=== PATIENT | female | born 1995 | race Caucasian/White ===

== ENCOUNTER 2017-11-12 21:58 | Emergency (ER) | payer MEDICAID, SELFPAY ==
[2017-11-12 21:59] VITALS: BP 142/91; PULSE 104; RESP 17; TEMP 36.1; O2SAT 95; BMI 38.9
--- NOTE | 2017-11-12 22:06 | NURSING ---
PATIENT HAD A FAMILY SITUATION AND HAD TO LEAVE SOON SHE WAS ROOMED. PATIENT STATES SHE PLANS ON RETURNING AFTER SHE DEALT WITH THIS. THIS NURSE TOLD PATIENT THAT SHE WOULD HAVE TO START IN TRIAGE AGAIN.
== END 2017-11-12 22:15 | disposition left against medical advice (07) ==
LOC: ED 22:14
PROVIDERS: Emergency Provider Emergency Medicine; Family Provider Student in an Organized Health Care Education/Training Program; PCP Student in an Organized Health Care Education/Training Program
DX: R69 Illness, unspecified (principal)

== ENCOUNTER 2018-02-19 19:46 | Emergency (ER) | payer MEDICAID, SELFPAY ==
[2018-02-19 19:47] VITALS: BP 127/67; PULSE 85; RESP 15; TEMP 37; BMI 36.9
--- NOTE | 2018-02-19 20:03 | ED.DCSUM_ITS ---
- ER Visit Summary Date of Service: 02/19/18 Chief Complaint: Right lateral chest wall redness History of Present Illness: The patient is a 22 F several day history of redness and discomfort right lateral chest wall. She thinks she may have been bit by something in her sleep. No prior history. States it is uncomfortable. Denies any drainage. Physical Examination: Well-appearing young female. Vital signs are stable afebrile. No distress. H EENT exam unremarkable. Neck nontender. Lungs clear to auscultation bilaterally. Heart regular rate and rhythm no murmur. Abdomen soft nontender. Normal bowel sounds no peritoneal signs. Moving all 4 extremities neurovascular intact. Small bruise on her right anterior lower leg. No deformity. Neurologic exam normal. Right lateral chest wall there is a 1/2 inch wide by 3 inch long area of redness which could be an early abscess. It is tender palpation. Also any obvious fluctuance but there is indurated tissue. Test Results: None Emergency Department Course and Treatment: Procedure note. Right lateral chest wall abscess. Let was applied. Then locally anesthetized with subcu lidocaine. Area was cleaned. I made a 1 cm more to express pus and blood. Loculations were broken up with probing. And I placed several inches of quarter inch packing gauze. Patient tolerated procedure well. She will be given 1 dose of Keflex in the ER. Treatment Plan: Keflex 4 times daily for 10 days. Tylenol Motrin for pain. Follow-up with her primary care physician this week. Packing pulled out in 4 days. Disposition: Discharge Impression: Right lateral chest wall subcu abscess Incision and drainage by ER This note was generated with [employer] dictation software. It may contain incorrect words, spelling, and punctuation that were not noted in review of the chart prior to signing ED Disposition - Plan for ED Patient: Chief Complaint: Other, Pain/Inj Referrals: Dario Poe DO [Primary Care Provider] -
[2018-02-19] MEDS: Lidocaine/Epi/Tetracaine 50 ML 1 APPLIC TOPICAL (20:13)
--- NOTE | 2018-02-19 21:12 | ED.DEP ---
ED Disposition - Plan for ED Patient: Disposition: Home or Assisted Living Chief Complaint: Other, Pain/Inj Instructions: ED Abscess IandD Prescriptions: Cephalexin [Keflex] 500 mg PO Q6 #40 cap Referrals: aDrio Poe DO [Primary Care Provider] - 5-7 Days Additional Instructions: Tylenol Motrin for pain. Keflex 1 pill 4 times a day till gone. Full packing out in 4 days. Follow-up with primary care physician. Return to ER if feeling worse.
[2018-02-19] MEDS: Cephalexin 250 MG Capsule 500 MG PO (21:15)
== END 2018-02-19 21:21 | disposition home or self-care (01) ==
PROVIDERS: Emergency Provider Emergency Medicine; Family Provider Student in an Organized Health Care Education/Training Program; PCP Student in an Organized Health Care Education/Training Program
DX: L02.213 Cutaneous abscess of chest wall (principal); B96.89 Other specified bacterial agents as the cause of diseases classified elsewhere; F32.9 Major depressive disorder, single episode, unspecified
CPT/HCPCS: 10061; 99283

== ENCOUNTER 2018-02-20 20:21 | Inpatient (IN) | payer MEDICAID, SELFPAY ==
[2018-02-20 20:22] VITALS: BP 120/81; PULSE 94; RESP 15; TEMP 37.2; BMI 36.4
--- NOTE | 2018-02-20 20:56 | CT_ITS ---
STUDY: CT CHEST WITH CONTRAST REASON FOR EXAM: Female, 22 years old. Right lateral chest wall abscess. Status post incision and drainage. RADIATION DOSAGE (If Supplied By Facility): CTDIvol = ( 17.69 ) mGy, DLP = ( 659.57 ) mGycm TECHNIQUE: Transaxial imaging was performed following intravenous administration of 100ml ml of Isovue 300 contrast material. Coronal and sagittal reformatted images were created. Individualized dose optimization techniques were used for this CT. COMPARISON: None FINDINGS: There are no pulmonary infiltrates or pleural effusions. There are no pulmonary nodules or masses. There is no pneumothorax. The heart and pericardium are within normal limits. There is no mediastinal or hilar lymphadenopathy. There is no evidence of thoracic aortic aneurysm. Images through the upper abdomen demonstrate no significant abnormality. There is a 2.2 x 1.6 cm right axillary lymph node. There is subcutaneous stranding in the right lateral chest wall but no discrete fluid collection. This likely represents cellulitis. There are no destructive osseous lesions. There are spinal fusion rods in place. CT/Chest WITH Contrast IMPRESSION: Subcutaneous stranding in the right lateral chest wall but no discrete fluid collection. This likely represents cellulitis. Right axillary lymphadenopathy. Clear lungs. Electronically Signed: Trenton Enriquez, at 22:57 EDT Tel , Service support ,
--- NOTE | 2018-02-20 21:00 | ED.VISSUMM ---
- ER Visit Summary Date of Service: 02/20/18 Chief Complaint: Fever and chills and worsening redness after incision and drainage of her right lateral chest wall subcu abscess yesterday History of Present Illness: The patient is a 22 F history of depression, prior back surgery and appendectomy. Patient was seen yesterday in the ER and incision and drainage of her right lateral chest wall abscess. At that time and minimal redness. Pus and blood was expressed from the wound. It was packed and she was started on Keflex. She states that now she has worse redness. That she has been taken antibiotic. And today had fever and chills. Also nausea vomiting. States more painful to site. Physical Examination: Well-appearing young female. Vital signs are stable afebrile. She does not look septic or toxic. Currently no acute distress. HEENT exam unremarkable neck nontender no lymphadenopathy. Lungs clear to auscultation bilaterally. Heart regular rate and rhythm no murmur rate about 90. Abdomen soft nontender nondistended normal bowel sounds no hernial signs. Right lateral chest wall midaxillary line there is chest wall abscess. There is tenderness to the site. There is cellulitis. This does look worse than it did yesterday. There is no necrotic skin. I do not feel any significant subcutaneous air. There is packing in place and a small amount of pus from the wound. The area involved is about 3 inches in wide and 5 inches in length. Her neurologic exam is normal. She is moving all 4 extremities. Back is unremarkable. No other rashes. Test Results: CBC shows a white count of 10. Normal H&H. Platelet count of 137,000. Electrolytes are normal potassium 3.2. Normal gap. Normal creatinine. Emergency Department Course and Treatment: Patient was treated with morphine for pain. Started on IV Zosyn. Screening labs will be obtained also a CAT scan of her chest with IV contrast to evaluate the abscess. Treatment Plan: Aaron exam patient is doing well at 2232. The cellulitis has not gotten significantly worse. She has been given IV Zosyn. 2 different dosages IV morphine. I will speak to the hospitalist about admission. Disposition: Admission Impression: Right lateral chest wall cellulitis Status post right lateral chest wall abscess incision and drainage This note was generated with [employer] dictation software. It may contain incorrect words, spelling, and punctuation that were not noted in review of the chart prior to signing ED Disposition - Plan for ED Patient: Chief Complaint: Nausea/Vomiting Referrals: Dario Poe DO [Primary Care Provider] -
--- NOTE | 2018-02-20 21:03 | ED.DCSUM_ITS ---
- ER Visit Summary Date of Service: 02/20/18 Chief Complaint: Fever and chills and worsening redness after incision and drainage of her right lateral chest wall subcu abscess yesterday History of Present Illness: The patient is a 22 F history of depression, prior back surgery and appendectomy. Patient was seen yesterday in the ER and incision and drainage of her right lateral chest wall abscess. At that time and minimal redness. Pus and blood was expressed from the wound. It was packed and she was started on Keflex. She states that now she has worse redness. That she has been taken antibiotic. And today had fever and chills. Also nausea vomiting. States more painful to site. Physical Examination: Well-appearing young female. Vital signs are stable afebrile. She does not look septic or toxic. Currently no acute distress. HEENT exam unremarkable neck nontender no lymphadenopathy. Lungs clear to auscultation bilaterally. Heart regular rate and rhythm no murmur rate about 90. Abdomen soft nontender nondistended normal bowel sounds no hernial signs. Right lateral chest wall midaxillary line there is chest wall abscess. There is tenderness to the site. There is cellulitis. This does look worse than it did yesterday. There is no necrotic skin. I do not feel any significant subcutaneous air. There is packing in place and a small amount of pus from the wound. The area involved is about 3 inches in wide and 5 inches in length. Her neurologic exam is normal. She is moving all 4 extremities. Back is unremarkable. No other rashes. Test Results: CBC shows a white count of 10. Normal H&H. Platelet count of 137 ,000. Electrolytes are normal potassium 3.2. Normal gap. Normal creatinine. Emergency Department Course and Treatment: Patient was treated with morphine for pain. Started on IV Zosyn. Screening labs will be obtained also a CAT scan of her chest with IV contrast to evaluate the abscess. Treatment Plan: Aaron exam patient is doing well at 2232. The cellulitis has not gotten significantly worse. She has been given IV Zosyn. 2 different dosages IV morphine. I will speak to the hospitalist about admission. Disposition: Admission Impression: Right lateral chest wall cellulitis Status post right lateral chest wall abscess incision and drainage This note was generated with [employer] dictation software. It may contain incorrect words, spelling, and punctuation that were not noted in review of the chart prior to signing ED Disposition - Plan for ED Patient: Chief Complaint: Nausea/Vomiting Referrals: Dario Poe DO [Primary Care Provider] -
[2018-02-20] MEDS: morphine 8 MG/ML Syringe IV (21:31)
[2018-02-20] MEDS: 0.9% Normal Saline 1,000 ML 999 ML IV (21:31)
[2018-02-20 21:37] LABS: Absolute Lymphocyte Count 1.95 X10^3/ul (0.83-4.51); Absolute Neutrophil Count 6.8 X10^3/uL (2.0-7.7); Eosinophil# 0.05 X10^3/uL; Eosinophils% 0.5 % (0-5); Hematocrit 38.4 % (37-47); Lymphocyte # 1.95 X10^3/ul (4.0); Lymphocyte % 19.6 % (19-41); Mean Corp Hgb Conc 31.3 g/gl (32-36); Mean Corpuscular Hgb 26.3 pg (27.0-32.0); Mean Corpuscular Volume 84.2 fL (81-99); Monocyte# 1.19 X10^3/uL; Monocyte% 11.9 % (0-10); Neutrophil # 6.76 X10^3/uL (2.7-7.7); Neutrophil % 67.8 % (47-70); POSITIVE COUNT NO; POSITIVE DIFFERENTIAL NO; POSITIVE MORPHOLOGY NO; Platelet Count 137 K/mm3 (150-450); RBC Distribution Width CV 13.9 % (11.6-14.6); RBC Distribution Width SD 42.2 fl (35.1-43.9); Red Blood Count 4.56 M/mm3 (4.2-5.4)
[2018-02-20] MEDS: morphine 8 MG/ML Syringe 6 MG IV (22:15)
[2018-02-20 22:16] VITALS: BP 126/74; PULSE 76; RESP 16; O2SAT 98
[2018-02-20 22:16] LABS: Anion Gap 8 (5-15); BUN 8 mg/dL (7-18); BUN/Creat Ratio 9.2 RATIO (10-20); Calcium,Total 8.8 mg/dL (8.5-10.1); Chloride 105 mmol/L (98-107); Creatinine, Serum 0.86 mg/dL (0.55-1.02); EST Glomerular Filtration Rate 85 mL/min (>60); Est Glom Filt Rate - Afr Amer 103 mL/min (>60); Estimated Creatinine Clearance 94.43 ml/min; Glucose 82 mg/dL (74-106); Potassium 3.2 mmol/L (3.5-5.1); Sodium Level 138 mmol/L (136-145)
[2018-02-20 23:12] VITALS: BP 129/76; PULSE 92; RESP 18; O2SAT 99
[2018-02-20 23:33] VITALS: BMI 36.9
[2018-02-20 23:57] VITALS: BMI 37.0
[2018-02-21] MEDS: 0.9% Normal Saline 1,000 ML 100 ML IV ×2 (00:12→08:51)
[2018-02-21] MEDS: buPROPion (XL) 300 MG TABLET.XL PO ×2 (00:14→21:34)
[2018-02-21 00:15] VITALS: BP 127/68; PULSE 71; RESP 16; TEMP 37.2; O2SAT 99
[2018-02-21 00:16] LABS: Bedside Glucose 88 mg/dL (70-110)
[2018-02-21] MEDS: oxyCODONE 5 MG Tablet PO ×6 (00:28→21:34)
--- NOTE | 2018-02-21 00:34 | PCM.RX.CS ---
Consult Pharmacy has been consulted to manage selected antiobiotic: Vancomycin Type of Consult: New start Suspected Infection: Skin/Soft tissue Prior Doses of Antibiotics Received/Current Regimen: Medications Vancomycin HCl 1,500 mg/ (Sodium Chloride) 530 mls @ 250 mls/hr IV RX TO DOSE ONE Stop: 02/21/18 02:37 Last Admin: 02/21/18 00:12 Dose: 250 mls/hr Vancomycin HCl 1,500 mg/ (Sodium Chloride) 530 mls @ 250 mls/hr IV Q12H [facility] Labs: Sodium 138 mmol/L (136-145) 02/20/18 21:55 Potassium 3.2 mmol/L (3.5-5.1) L 02/20/18 21:55 Chloride 105 mmol/L (98-107) 02/20/18 21:55 Carbon Dioxide 25.0 mmol/L (21.0-32.0) 02/20/18 21:55 Anion Gap 8 (5-15) 02/20/18 21:55 BUN 8 mg/dL (7-18) 02/20/18 21:55 Creatinine 0.86 mg/dL (0.55-1.02) 02/20/18 21:55 Est GFR (MDRD) Af Amer 103 mL/min (>60) 02/20/18 21:55 Est GFR (MDRD) Non-Af 85 mL/min (>60) 02/20/18 21:55 BUN/Creatinine Ratio 9.2 RATIO (10-20) L 02/20/18 21:55 Glucose 82 mg/dL (74-106) 02/20/18 21:55 Weight used for dosin.4 kg Estimated Creatinine Clearance: 94 Goal Trough: 10-15 mcg/mL Pharmacy Plan for Drug Dosing: Pharmacy Service will continue to monitor and adjust dosing as required. Follow-Up Labs: Trough Vancomycin Labs to be done on [date and time ordered]: 02/22/18 @8513
[2018-02-21 00:51] LABS: Erythrocyte Sedimentation Rate 46 mm/hr (0-20)
--- NOTE | 2018-02-21 01:19 | PCM.HP.STD ---
Problem List (1) Cellulitis Status: Acute (2) Abscess of right breast Status: Acute (3) Depression Status: Chronic History of Present Illness Date of Admission: 02/21/18 Chief Complaint: Cellulitis The patient is a 22 year old female w/ h/o depression, prior back surgery and appendectomy admitted for right breast cellulitis and abscess. She noted swelling and redness of the right breast 3 days ago. It has gotten progressively worse with increase pain. Pain is dull aching and when touch, it is burning. Pain is worse with touch. Nothing improves the pain. Pain is constant and severe. She went to the ED yesterday and had I&D of her right lateral chest abscess. However, despite drainage and being on antibiotic, she had increase pain and swelling. She also had fever and chill. She also had n/v. She went back to the ED for further evaluation. Past Medical History Past Medical History (Chronic Problems): Chronic Problems BMI 38.0-38.9,adult (Chronic) Depression (Chronic) Allergies No Known Allergies Allergy (Verified 02/20/18 20:27) Home Medications: Ambulatory Orders Medication Instructions Recorded bupropion HCl XL 300 mg 24 hr 300 mg PO DAILY #30 tab 08/19/17 tablet, extended release Cephalexin [Keflex] 500 mg PO Q6 #40 cap 02/19/18 Surgical History: appendectomy, - - Tubal ligation, back surgery for scoliosis Psychiatric History: No pertinent psych hx [employer]ICIAN History: No pertinent [employer] TECH[employer]ICIAN history Smoking Status: Never smoker Tobacco Use: Secondhand - *Family History Maternal History Items: No pertinent history Paternal History Items: No pertinent history Review of Systems Constitutional: Reports: Chills, Fever. Denies: Weight Change HEENT: Denies: Head Aches, Sinus Congestion, Sinus Drainage Cardiovascular: Denies: Chest Pain, Palpitations Respiratory: Denies: Cough, Shortness of breath at rest, Sputum production Gastrointestinal: Denies: Abdominal Pain, Nausea, Vomiting Genitourinary: Denies: Dysuria Musculoskeletal: Denies: Joint Pain, Joint Tenderness Skin: Denies: Rash, Wounds Neurological: Denies: Numbness, Tingling, Focal weakness Psychiatric: Denies: Anxiety, Depression, Homicidal Ideations, Suicidal Ideations Hematologic/ Lymphatic: Denies: Easy Bruising, Easy Bleeding VTE Information - Inpt Only VTE Present on Admission: No VTE Mechan Device Prophylaxis: SCD's VTE Pharm Prophylaxis ordered?: Yes Patient Problems: Active and Suspected Problems Cellulitis (Acute) Abscess of right breast (Acute) - Physical Exam General: Alert, Oriented x3, Cooperative HEENT: Atraumatic, PERRLA, EOMI, Normocephalic Neck: Supple, No JVD, Negative Carotid Bruits Lungs: Clear to auscultation, Normal air movement Cardiovascular: Regular rate, No murmurs Abdomen: Bowel Sounds Present, Soft, Non Tender Extremities: No edema, Capillary Refill Less than 3 Seconds Skin: No breakdown, Incision Musculoskeletal: No Tenderness to Palpation of Joints or Extremities Neurological: Cranial nerves II-XII grossly intact Psych/Mental Status: Normal Affect, Appropriate Vital Signs Temp Pulse Resp BP Pulse Ox 98.9 F 92 18 129/76 H 99 02/20/18 20:22 02/20/18 23:12 02/20/18 23:12 02/20/18 23:12 02/20/18 23:12 Weight: 103.9 kg Body Mass Index (BMI) 36.9 Laboratory Tests Past 24 Hrs 02/21/18 00:24 ESR 46 H POC Glucose 02/21/18 00:10 POC Glucose 88 Assessment/Plan All Active Problems Cellulitis (Acute) Abscess of right breast (Acute) Acute pyelonephritis (Acute) Fever (Acute) Right flank pain (Acute) 22 year old female w/ h/o depression, prior back surgery and appendectomy admitted for right breast cellulitis and abscess. 1) Right breast cellulitis and abscess: S/p I&D. Will get deep wound culture. Will start zosyn and vanco until culture / sensitive. Pain control. Supportive care. 2) Dysuria: Will get UA. Will monitor for fungal infection given antibiotics. Supportive care. 3) Depression: Resume home meds. Monitor. 4) Prophylaxis: SCD / Heparin.
[2018-02-21 01:23] LABS: Hemoglobin A1c 4.7 % (4.2-6.3)
[2018-02-21] MEDS: Ondansetron 4 MG/2 ML Vial IV (01:48)
[2018-02-21 01:52] LABS: Bacteria 0 SEEN /hpf (None Seen); Mucous, Urine 0 SEEN /hpf (<or=2+)
[2018-02-21 02:12] LABS: Color, Urine Yellow (Yellow); Glucose, Dipstick Normal (Normal); Ketone-Dipstick Negative (Negative); Leukocyte Esterase-Dipstick 100 /ul (Negative); Nitrite-Dipstick Negative (Negative); Occult Blood-Urine 250 /ul (Negative); Protein-Dipstick 15 mg/dl (Negative); Specific Gravity, Urine 1.005 (1.002-1.030); Urine Bilirubin Dipstick Negative (Negative); Urine Clarity Sl. Cloudy (Clear); Urine Urobilinogen Normal (Normal); Urine pH 6.5 (5.0 - 8.0)
[2018-02-21 02:20] LABS: Squamous Epithelial Cells - UA 25-50 SEEN /hpf (5-10); White Blood Cells 5-10 SEEN /hpf (0-5)
[2018-02-21 02:21] LABS: Red Blood Cells-Urine 0-5 SEEN /hpf (0-5)
[2018-02-21] MEDS: Morphine 2 MG/ML Syringe IV ×2 (03:21→08:50)
[2018-02-21] MEDS: 0.9% NaCl Peripheral Flush Adult/Peds IV (03:21)
[2018-02-21 03:24] VITALS: BP 128/68; PULSE 86; RESP 16; TEMP 37.1; O2SAT 100
[2018-02-21 04:06] LABS: M R Staph aureus DNA By PCR POSITIVE (Negative); Probe Check PASS; Staph aureus DNA By PCR POSITIVE (Negative)
[2018-02-21] MEDS: Piperacil/Tazobactam 3.375 GM/50 ML ML IV (05:09)
[2018-02-21] MEDS: Heparin Injection (Vial) 5,000 UNIT/ML VIAL 5000 UNIT SC (05:10)
[2018-02-21 05:51] LABS: Absolute Lymphocyte Count 1.27 X10^3/ul (0.83-4.51); Basophil# 0.01 X10^3/uL; Basophil% 0.1 % (0-1); Eosinophil# 0.04 X10^3/uL; Eosinophils% 0.5 % (0-5); Hematocrit 34.8 % (37-47); Hemoglobin 10.9 g/dl (12.0-15.0); Lymphocyte # 1.27 X10^3/ul (4.0); Lymphocyte % 15.9 % (19-41); Mean Corp Hgb Conc 31.3 g/gl (32-36); Mean Corpuscular Hgb 26.3 pg (27.0-32.0); Mean Corpuscular Volume 83.9 fL (81-99); Mean Platelet Vol. 10.5 fl (6.2-12.0); Monocyte# 0.69 X10^3/uL; Monocyte% 8.6 % (0-10); Neutrophil # 5.99 X10^3/uL (2.7-7.7); Neutrophil % 74.8 % (47-70); Platelet Count 164 K/mm3 (150-450); RBC Distribution Width CV 13.7 % (11.6-14.6); RBC Distribution Width SD 42.4 fl (35.1-43.9); Red Blood Count 4.15 M/mm3 (4.2-5.4)
[2018-02-21 05:53] LABS: POSITIVE COUNT NO; POSITIVE DIFFERENTIAL NO; POSITIVE MORPHOLOGY NO
[2018-02-21 06:24] LABS: Anion Gap 8 (5-15); BUN 6 mg/dL (7-18); BUN/Creat Ratio 7.9 RATIO (10-20); Calcium,Total 8.3 mg/dL (8.5-10.1); Chloride 106 mmol/L (98-107); Creatinine, Serum 0.76 mg/dL (0.55-1.02); EST Glomerular Filtration Rate 98 mL/min (>60); Est Glom Filt Rate - Afr Amer 119 mL/min (>60); Estimated Creatinine Clearance 106.85 ml/min; Glucose 105 mg/dL (74-106); Potassium 3.3 mmol/L (3.5-5.1); Sodium Level 139 mmol/L (136-145)
[2018-02-21 07:06] LABS: Bedside Glucose 97 mg/dL (70-110)
--- NOTE | 2018-02-21 08:31 | PN_ITS ---
Patient Problems: Active and Suspected Problems Cellulitis (Acute) Abscess of right breast (Acute) Subjective: Patient is a 22-year-old female admitted to the hospital for cellulitis of the right breast. She had been seen in the emergency room on 02/19/2018 and had incision and drainage of right lateral chest wall abscess. NJo specimen was sent for C&S. She was discharged home with a prescription for Keflex 4 times daily. She was instructed to take Tylenol or Motrin for pain. She returned to the emergency room on 02/20/2018 complaining of increased pain, fever and chills , N/V. Per the examination by the emergency room physician there was increased erythema when compared to the previous day. CT scan of the chest wall with IV contrast showed subcutaneous stranding in the right lateral chest wall but no discrete fluid collection. Right axillary adenopathy was present. White blood cell count was normal at 10 with an unremarkable differential. Platelets were mildly decreased at 137,000. Potassium was low at 3.2 and the remainder of the BMP was unremarkable. PCR on the wound drainage was positive for MRSA. She was admitted to the hospital and started on Zosyn and vancomycin. Afebrile since admission. Vital signs stable. White blood cell count today is 8.0 with 75% neutrophils. Platelets are normal at 164,000. Potassium remains low at 3.3. Hemoglobin A1c was 4.7. Objective: PHYSICAL EXAM: GENERAL: alert, oriented X 3, Cooperative, appears to be in significant pain with dressing change and insertion of a wick ORAL: moist mucosa, no mucosal lesions NECK: No JVD, supple, trachea midline LUNGS: CTA, symmetric chest expansion HEART: RRR, Normal S1 and S2, no rub, no gallop ABDOMEN: soft, NT, ND, BS present, no guarding with palpation EXTREMITIES: no edema, no cyanosis, no calf tenderness SKIN: right lateral chest wall abscess, small amount of purulent DC with marked induration beneath a much larger area than the 1 cm incision NEUROLOGIC: no focal neurologic deficits PSYCH: appropriate, normal affect, pleasant - Physical Exam Vital Signs Temp Pulse Resp BP Pulse Ox 98.7 F 86 16 128/68 H 100 02/21/18 03:24 02/21/18 03:24 02/21/18 03:24 02/21/18 03:24 02/21/18 03:24 Oxygen Delivery Method Room Air Weight: 229 lb 0.964 oz Body Mass Index (BMI) 36.9 Intake and Output for Last 24 Hours 02/19/18 02/20/18 02/21/18 23:59 23:59 23:59 Intake Total 1298 / 1298 Output Total 575 / 575 Balance 723 / 723 Laboratory Tests Past 24 Hrs 02/21/18 02/21/18 02/21/18 00:24 00:24 01:35 WBC RBC Hgb Hct MCV MCH MCHC RDW RDW Differential Plt Count MPV Immature Gran % (Auto) Neut % (Auto) Lymph % (Auto) [place] % (Auto) Eos % (Auto) Baso % (Auto) Absolute Neuts (auto) Absolute Lymphs (auto) Total Counted ESR 46 H Sodium Potassium Chloride Carbon Dioxide Anion Gap BUN Creatinine Estim Creat Clear Calc Est GFR (MDRD) Af Amer Est GFR (MDRD) Non-Af BUN/Creatinine Ratio Glucose Hemoglobin A1c 4.7 Calcium Urine Color Yellow Urine Clarity Sl. Cloudy Urine pH 6.5 Ur Specific [employer] 1.005 Urine Protein 15 H Urine Glucose (UA) Normal Urine Ketones Negative Urine Occult Blood 250 H Urine Nitrite Negative Urine Bilirubin Negative Urine Urobilinogen Normal Ur Leukocyte Esterase 100 H Urine RBC 0-5 SEEN Urine WBC 5-10 SEEN Ur Squamous Epith Cells 25-50 SEEN Urine Bacteria 0 SEEN Urine Mucus 0 SEEN S.aureus Protein A PCR MRSA (PCR) 02/21/18 02/21/18 02/21/18 02:00 05:30 05:30 WBC 8.0 RBC 4.15 L Hgb 10.9 L Hct 34.8 L MCV 83.9 MCH 26.3 L MCHC 31.3 L RDW 13.7 RDW Differential 42.4 Plt Count 164 MPV 10.5 Immature Gran % (Auto) 0.100 Neut % (Auto) 74.8 H Lymph % (Auto) 15.9 L [place] % (Auto) 8.6 Eos % (Auto) 0.5 Baso % (Auto) 0.1 Absolute Neuts (auto) 6.0 Absolute Lymphs (auto) 1.27 Total Counted Not Reportable ESR Sodium 139 Potassium 3.3 L Chloride 106 Carbon Dioxide 25.0 Anion Gap 8 BUN 6 L Creatinine 0.76 Estim Creat Clear Calc 106.85 Est GFR (MDRD) Af Amer 119 Est GFR (MDRD) Non-Af 98 BUN/Creatinine Ratio 7.9 L Glucose 105 Hemoglobin A1c Calcium 8.3 L Urine Color Urine Clarity Urine pH Ur Specific [employer] Urine Protein Urine Glucose (UA) Urine Ketones Urine Occult Blood Urine Nitrite Urine Bilirubin Urine Urobilinogen Ur Leukocyte Esterase Urine RBC Urine WBC Ur Squamous Epith Cells Urine Bacteria Urine Mucus S.aureus Protein A PCR POSITIVE H MRSA (PCR) POSITIVE H POC Glucose 02/21/18 02/21/18 07:01 00:10 POC Glucose 97 88 Medical Necessity - Tobacco Use Smoking Status: Never smoker Tobacco Use: Secondhand Assessment/Plan All Active Problems Cellulitis (Acute) Abscess of right breast (Acute) Acute pyelonephritis (Acute) Fever (Acute) Right flank pain (Acute) Impressions 1. Right lateral chest wall abscess with PCR positive for MRSA 2. Obesity 3. History of depression 4. Hypokalemia Continue vancomycin Supplement potassium Increase OxyIR to 10 mg every 4 hours as needed and increase morphine sulfate 246 mg every 4 hours as needed and prior to any dressing changes. Add scheduled Motrin 600 mg p.o. every [address] Garibay for incision and drainage Discontinue IV fluids Chlorhexidine scrub and Bactroban twice daily for 5 days to decolonize Code Visit Inpatient E&M: [id number] [facility] Hosp L2
[2018-02-21] MEDS: Morphine 4 MG/ML Syringe IV (08:59)
[2018-02-21 09:24] VITALS: BP 124/78; PULSE 86; RESP 18; TEMP 36.7; O2SAT 96
[2018-02-21] MEDS: Ibuprofen 600 MG Tablet PO ×2 (09:30→17:51)
--- NOTE | 2018-02-21 09:51 | NURSING ---
wound photo: right lateral chest
--- NOTE | 2018-02-21 12:59 | CASEMGMT ---
ÁLVARO MASTERSON Face to Face with patient for initial transition planning/care coordination assessment. ÁLVARO MASTERSON introduced self and role at [facility]. Patient sitting up in bed, alert and oriented. Patient willing to participate in assessment and is able to answer all questions appropriately. Care providers, pharmacy, and demographics verified. See link attached. Patient wishes to discharge home, denies need for home health at this time. Patient states she has no further needs or concerns at this time. CM to follow for discharge planning needs that may arise. Disposition Plan: Patient to discharge home with family support and follow-up plans in place. Will monitor need for HHC pending coarse of treatment.
[2018-02-21 14:32] VITALS: BP 121/75; PULSE 88; RESP 18; TEMP 36.7; O2SAT 95
[2018-02-21 20:00] VITALS: BP 113/67; PULSE 67; RESP 17; TEMP 35.8; O2SAT 99
[2018-02-21] MEDS: Acetaminophen 500 MG Tablet 1000 MG PO (20:18)
[2018-02-21] MEDS: Mupirocin Ointment 22gm Tube 1 APPLIC NASAL (21:36)
--- NOTE | 2018-02-21 21:51 | PCM.CONS.GEN ---
Reason for Consult Date of Consultation: 02/21/18 Reason for Consultation: Right lateral chest wall/lateral breast abscess. REFERRING PHYSICIAN: Dr. Cruz. DISTRIBUTION TECHNICIAN: Dr. Garibay. History of Present Illness: The patient is a 22 year old female who was admitted because of increasing pain and redness and swelling in her right lateral chest wall/lateral breast area. A few days ago she went to the ED and had I&D of her right lateral chest wall abscess. However, despite drainage and being on an antibiotic, she still developed worsening symptomatology and came back to the ED and was admitted. She had a CT done which showed cellulitis and no definitive fluid collection and right axillary lymphadenopathy. She was started on Vancomycin and Zosyn. The drainage was cultured and came back with MRSA. I was asked to evaluate this patient for surgical options for treatment. Past Medical History Past Medical History (Chronic Problems): Chronic Problems BMI 38.0-38.9,adult (Chronic) Depression (Chronic) Allergies No Known Allergies Allergy (Verified 02/20/18 20:27) Current Medications Acetaminophen (Tylenol) 1,000 mg PO Q8H PRN PRN PRN Reason: PAIN Last Admin: 02/21/18 20:18 Dose: 1,000 mg Bupropion HCl (Wellbutrin Xl) 300 mg PO DAILY@2200 [facility] Last Admin: 02/21/18 21:34 Dose: 300 mg Chlorhexidine Gluconate () 1 each TOPICAL DAILY [facility] Stop: 02/26/18 10:01 Dextrose (D50w Syringe) 0 gm IV X1 PRN; Protocol PRN Reason: Hypoglycemia Enoxaparin Sodium (Lovenox) 40 mg SC DAILY@0600 [facility] Glucagon () 1 mg IM .X1 PRN PRN Reason: Hypoglycemia Vancomycin HCl 1,500 mg/ (Sodium Chloride) 530 mls @ 250 mls/hr IV Q12H [facility] Last Admin: 02/21/18 12:20 Dose: 250 mls/hr Ibuprofen (Motrin) 600 mg PO Q8H [facility] Last Admin: 02/21/18 17:51 Dose: 600 mg Magnesium Hydroxide (Milk Of Magnesia) 30 ml PO DAILY PRN PRN PRN Reason: Constipation Morphine Sulfate () 6 mg IV Q4H PRN PRN PRN Reason: Moderate Pain (pain scale 4-5) Mupirocin (Bactroban) 1 applic NASAL BID STANLEY PRN Reason: Protocol Stop: 02/26/18 10:01 Last Admin: 02/21/18 21:36 Dose: 1 applicatio Ondansetron HCl (Zofran) 4 mg IV Q8H PRN PRN PRN Reason: Nausea Last Admin: 02/21/18 01:48 Dose: 4 mg Oxycodone HCl (Oxyir) 5 - 10 mg PO Q4H PRN PRN PRN Reason: Moderate Pain (pain scale 4-5) Last Admin: 02/21/18 21:34 Dose: 10 mg Prochlorperazine Edisylate (Compazine Iv) 10 mg IV Q6H PRN PRN PRN Reason: Nausea/Vomiting Sodium Chloride () 5 - 30 ml IV UD PRN PRN Reason: SALINE FLUSH Last Admin: 02/21/18 03:21 Dose: 10 ml Home Medications: Ambulatory Orders Medication Instructions Recorded bupropion HCl XL 300 mg 24 hr 300 mg PO DAILY #30 tab 08/19/17 tablet, extended release Diazepam [Valium] 5 mg PO 4X/DAY PRN PRN #30 tab 02/23/18 Oxycodone HCl/Acetaminophen 1 - 2 tab PO 4X/DAY PRN PRN 7 Days 02/23/18 [Percocet 5/325] #60 tab Doxycycline 100 mg PO BID #14 cap 02/24/18 Levofloxacin [Levaquin] 500 mg PO DAILY #14 tab 02/24/18 Surgical History: appendectomy, - - Tubal ligation, back surgery for scoliosis Psychiatric History: No pertinent psych hx 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 Denies: Weight Change. HEENT: Denies: Head Aches, Sinus Congestion, Sinus Drainage. Cardiovascular: Denies: Chest Pain, Palpitations. Respiratory: Denies: Cough, Shortness of breath at rest, Sputum production. Gastrointestinal: Denies: Abdominal Pain, Nausea, Vomiting. Genitourinary: Denies: Dysuria. Musculoskeletal: Denies: Joint Pain, Joint Tenderness. Skin: Has abscess right lateral chest wall/lateral breast. Neurological: Denies: Numbness, Tingling, Focal weakness. Psychiatric: Denies: Anxiety, Depression, Homicidal Ideations, Suicidal Ideations. Hematologic/ Lymphatic: Denies: Easy Bruising, Easy Bleeding Patient Problems: Active and Suspected Problems Cellulitis of right breast (Acute) Cellulitis of chest wall (Acute) Abscess of chest wall (Acute) abscess right lateral chest wall/lateral breast area Cellulitis and abscess of other specified site (Acute) MRSA (methicillin resistant Staphylococcus aureus) infection (Acute) - Physical Exam General: Alert, Oriented x3. HEENT: PERRLA, EOMI, throat is clear. Neck: Supple and nontender. No cervical adenopathy. There is an area of redness and tenderness and swelling in the right lateral chest wall/lateral breast area. Firmness and induration palpable. Small incision seen from I&D in ED. Measures 12 x 8 cm. Chest Wall: Lungs: Clear to auscultation. Cardiovascular: Regular rate and rhythm. Abdomen: Soft, Non-distended. Extremities: No clubbing, cyanosis or edema. Musculoskeletal: No Tenderness to Palpation of Joints or Extremities Neurological: Cranial nerves II-XII grossly intact Psych/Mental Status: Normal Affect, Appropriate Vital Signs Temp Pulse Resp BP Pulse Ox 96.5 F L 67 17 113/67 99 02/21/18 20:00 02/21/18 20:00 02/21/18 20:00 02/21/18 20:00 02/21/18 20:00 Oxygen Delivery Method Room Air Weight: 229 lb 0.964 oz Body Mass Index (BMI) 36.9 Intake and Output for Last 24 Hours 02/19/18 02/20/18 02/21/18 23:59 23:59 23:59 Intake Total 1298 / 1298 Output Total 575 / 575 Balance 723 / 723 Microbiology Past 72 Hours 02/21/18 02:00 Gram Stain - Final Wound - Other Laboratory Tests Past 24 Hrs 02/21/18 02/21/18 02/21/18 00:24 00:24 01:35 WBC RBC Hgb Hct MCV MCH MCHC RDW RDW Differential Plt Count MPV Immature Gran % (Auto) Neut % (Auto) Lymph % (Auto) [place] % (Auto) Eos % (Auto) Baso % (Auto) Absolute Neuts (auto) Absolute Lymphs (auto) Total Counted ESR 46 H Sodium Potassium Chloride Carbon Dioxide Anion Gap BUN Creatinine Estim Creat Clear Calc Est GFR (MDRD) Af Amer Est GFR (MDRD) Non-Af BUN/Creatinine Ratio Glucose Hemoglobin A1c 4.7 Calcium Urine Color Yellow Urine Clarity Sl. Cloudy Urine pH 6.5 Ur Specific [place] 1.005 Urine Protein 15 H Urine Glucose (UA) Normal Urine Ketones Negative Urine Occult Blood 250 H Urine Nitrite Negative Urine Bilirubin Negative Urine Urobilinogen Normal Ur Leukocyte Esterase 100 H Urine RBC 0-5 SEEN Urine WBC 5-10 SEEN Ur Squamous Epith Cells 25-50 SEEN Urine Bacteria 0 SEEN Urine Mucus 0 SEEN S.aureus Protein A PCR MRSA (PCR) 02/21/18 02/21/18 02/21/18 02:00 05:30 05:30 WBC 8.0 RBC 4.15 L Hgb 10.9 L Hct 34.8 L MCV 83.9 MCH 26.3 L MCHC 31.3 L RDW 13.7 RDW Differential 42.4 Plt Count 164 MPV 10.5 Immature Gran % (Auto) 0.100 Neut % (Auto) 74.8 H Lymph % (Auto) 15.9 L [place] % (Auto) 8.6 Eos % (Auto) 0.5 Baso % (Auto) 0.1 Absolute Neuts (auto) 6.0 Absolute Lymphs (auto) 1.27 Total Counted Not Reportable ESR Sodium 139 Potassium 3.3 L Chloride 106 Carbon Dioxide 25.0 Anion Gap 8 BUN 6 L Creatinine 0.76 Estim Creat Clear Calc 106.85 Est GFR (MDRD) Af Amer 119 Est GFR (MDRD) Non-Af 98 BUN/Creatinine Ratio 7.9 L Glucose 105 Hemoglobin A1c Calcium 8.3 L Urine Color Urine Clarity Urine pH Ur Specific [place] Urine Protein Urine Glucose (UA) Urine Ketones Urine Occult Blood Urine Nitrite Urine Bilirubin Urine Urobilinogen Ur Leukocyte Esterase Urine RBC Urine WBC Ur Squamous Epith Cells Urine Bacteria Urine Mucus S.aureus Protein A PCR POSITIVE H MRSA (PCR) POSITIVE H POC Glucose 02/21/18 02/21/18 07:01 00:10 POC Glucose [address] 02/20/18 20:56 IMPRESSION: Subcutaneous stranding in the right lateral chest wall but no discrete fluid collection. This likely represents cellulitis. Right axillary lymphadenopathy. Clear lungs. Electronically Signed: Trenton Enriquez, at 22:57 EDT Tel , Service support , Assessment/Plan All Active Problems Cellulitis of right breast (Acute) Cellulitis of chest wall (Acute) Abscess of chest wall (Acute) Cellulitis and abscess of other specified site (Acute) MRSA (methicillin resistant Staphylococcus aureus) infection (Acute) Abscess of right breast (Ruled-out) Acute pyelonephritis (Resolved) 1. Right lateral chest wall/lateral breast abscess. 2. MRSA. CT reviewed. The patient was placed on Vancomycin and Zosyn. Drainage has shown MRSA. So will continue the Vancomycin. Patient states it feels a little better since the I&D but it still hurts every time she moves her arm takes a deep breath. There is still a lot of induration and firmness. Recommend operative intervention with incision and drainage and excisional debridement. Tissue will be sent to Microbiology for culture and to Pathology for analysis to rule out carcinoma. The wound will be left open and postop wound care will be with the VAC. Patient understands the wound will be left open. After discharge, she can followup at the Wound Center. If there is a plateau in the healing process, can proceed with delayed closure with skin grafting or skin flap reconstruction. Anticipate increased metabolic demands from the infection and from the surgery. Will check a Prealbumin. Encourage nutritional supplementation with protein to help the healing process. Surgery will be done under general anesthesia. Will proceed with the surgery tomorrow. Patient was informed of the risks and complications of the procedure including alternatives to surgery. These were discussed with the patient personally. Patient voices understanding and wishes to proceed. Code Visit Inpatient E&M: 20755 Init Hosp L2 - ICD-10 - L02.213, L03.313, N61.0, A49.02
[2018-02-22] VITALS (9 sets, daily range): BP systolic 101–126; BP diastolic 62–83; PULSE 72–101; RESP 14–18; TEMP 36.4–37.1; O2SAT 94–100; BMI 36.8
--- NOTE | 2018-02-22 | ABS_PTH ---
PATIENT: SANTIAGO SALGUERO LOC: MS3 U#:[id number] AGE/SX: 22/F ROOM: [facility] RE02/20/[address]: Dr. Gemini Cruz DO : 1995 BED: 1 DIS: 02/24/2018 SPEC #: [id number] RECD: 02/22/18 16:17 STATUS: LANA REDiana #: [id number] SUGEY: 02/22/18 00:[address]: Benjamin Garibay DEPT: SURGICAL PATHOLOGY RECD BY: Mitchell Chowdhury ENTERED: 02/23/18 09:10 SP TYPE: Abscess OTHR DR: DO Dr. Dario Santana DO Dr. James A Slaby, MD Dr. Nhan Luu, MD Tissues: Chest wall, NOS Procedures: Special Stain Group I Surgery Specimen Level III AFB Stain (control) GMS Stain (control) Comments: @ Ordering doctor for SUIII edited from to @ by AGUSTIN at 02/23/18 1526 @ Submitting doctor edited from to @ by BERRYOD at 02/23/18 1526 HEADER OPERATION: Surgical preparation right lateral chest wall / lateral breast PRE-OP DIAGNOSIS: Right breast cellulitis and abscess TISSUE SUBMITTED: Right lateral chest wall/lateral breast abscess MICROSCOPIC DIAGNOSIS Right lateral chest wall/lateral breast abscess: Skin with underlying tissue with acute inflammation and abscess formation. Special stains for acid fast bacilli and fungi are negative for organisms; matched controls are appropriate. JUVE:mychal 02/24/18 MICROSCOPIC DESCRIPTION Slides are reviewed. GROSS DESCRIPTION Received in fixative is one container labeled with the patient's name and designated right lateral chest wall/lateral breast abscess. The specimen consists of a piece of skin with underlying tissue measuring 5 x 4.5 cm and up to 5.5 cm in thickness. No skin lesion is identified. Sections do not reveal any mass lesion and shows a focal area of abscess formation. Jigger Machine Operator sections are submitted in three cassettes. / JUVE:mychal 02/23/18 TC:2 CPT: 60646, 88859 x2
[2018-02-22] MEDS: Ibuprofen 600 MG Tablet PO ×3 (00:07→18:15)
[2018-02-22] MEDS: oxyCODONE 5 MG Tablet PO ×5 (02:03→21:52)
[2018-02-22] MEDS: Acetaminophen 500 MG Tablet 1000 MG PO (04:19)
--- NOTE | 2018-02-22 09:11 | NURSING ---
Dressing left in place this am. Pt is scheduled for surgery today per Dr Garibay. will continue to follow.
--- NOTE | 2018-02-22 10:06 | PN_ITS ---
Patient Problems: Active and Suspected Problems Cellulitis (Acute) Abscess of right breast (Acute) Subjective: All events of the past 24 Hours have been reviewed Antibiotic day #2 vancomycin VS: Stable TMAX -afebrile but is on scheduled Motrin every 8 hours Micro: Wound culture is growing Staphylococcus aureus and sensitivities are pending but the PCR was positive for MRSA Subjective: Seen by Dr. Garibay last night and Objective: GENERAL: alert, oriented X 3, Cooperative, appears to have better pain control today ORAL: moist mucosa, no mucosal lesions NECK: No JVD, supple, trachea midline LUNGS: CTA, symmetric chest expansion HEART: RRR, Normal S1 and S2, no rub, no gallop ABDOMEN: soft, NT, ND, BS present, no guarding with palpation EXTREMITIES: no edema, no cyanosis, no calf tenderness SKIN: right lateral chest wall abscess, small amount of purulent DC with marked induration beneath a much larger area than the 1 cm incision NEUROLOGIC: no focal neurologic deficits PSYCH: appropriate, normal affect, pleasant - Physical Exam Vital Signs Temp Pulse Resp BP Pulse Ox 97.9 F 89 16 112/71 98 02/22/18 08:12 02/22/18 08:12 02/22/18 08:12 02/22/18 08:12 02/22/18 08:12 Oxygen Delivery Method Room Air Weight: 228 lb Body Mass Index (BMI) 36.8 Intake and Output for Last 24 Hours 02/20/18 02/21/18 02/22/18 23:59 23:59 23:59 Intake Total 1298 / 1298 Output Total 575 / 575 Balance 723 / 723 Microbiology Past 72 Hours 02/21/18 02:00 Gram Stain - Final Wound - Other Wound Culture - Preliminary Staphylococcus aureus Medical Necessity - Tobacco Use Smoking Status: Never smoker Tobacco Use: Secondhand Assessment/Plan All Active Problems Cellulitis (Acute) Abscess of right breast (Acute) Acute pyelonephritis (Acute) Fever (Acute) Right flank pain (Acute) Impressions 1. Right lateral chest wall abscess with PCR positive for MRSA and wound culture + for Staph Aureus with sensitivities pending 2. Obesity 3. History of depression 4. Hypokalemia Continue vancomycin Surgery today Recheck lab in the AM Await the sensitivities for the MRSA Code Visit Inpatient E&M: 83399 [facility] Hosp L2
[2018-02-22] MEDS: Mupirocin Ointment 22gm Tube 1 APPLIC NASAL ×2 (10:48→21:46)
[2018-02-22] MEDS: LORazepam 2 MG/ML Syringe 1 MG IV (12:00)
[2018-02-22] MEDS: 0.9% NaCl Peripheral Flush Adult/Peds IV (12:00)
[2018-02-22] MEDS: CHLORHEXIDINE GLUC 2% CLOTH 1 EACH TOWELETTE TOPICAL (12:00)
[2018-02-22 12:27] LABS: Vancomycin, Trough Level 11.5 ug/mL (5.0-15.0)
--- NOTE | 2018-02-22 13:28 | NURSING ---
off unit via bed approx 1300. dad and bf present. report called to jp in ac
--- NOTE | 2018-02-22 14:31 | PCM.RX.CS ---
Consult Pharmacy has been consulted to manage selected antiobiotic: Vancomycin Type of Consult: Follow-up Suspected Infection: Skin/Soft tissue Prior Doses of Antibiotics Received/Current Regimen: VANCOMYCIN 1500MG IV Q12HRS: 02/21 @1220, 02/22 @0006, 1200 Labs: Sodium 139 mmol/L (136-145) 02/21/18 05:30 Potassium 3.3 mmol/L (3.5-5.1) L 02/21/18 05:30 Chloride 106 mmol/L (98-107) 02/21/18 05:30 Carbon Dioxide 25.0 mmol/L (21.0-32.0) 02/21/18 05:30 Anion Gap 8 (5-15) 02/21/18 05:30 BUN 6 mg/dL (7-18) L 02/21/18 05:30 Creatinine 0.76 mg/dL (0.55-1.02) 02/21/18 05:30 Est GFR (MDRD) Af Amer 119 mL/min (>60) 02/21/18 05:30 Est GFR (MDRD) Non-Af 98 mL/min (>60) 02/21/18 05:30 BUN/Creatinine Ratio 7.9 RATIO (10-20) L 02/21/18 05:30 Glucose 105 mg/dL (74-106) 02/21/18 05:30 Vancomycin Trough 11.5 ug/mL (5.0-15.0) 02/22/18 11:30 Microbiology: Microbiology 02/21/18 02:00 Wound - Other Gram Stain - Final 02/21/18 02:00 Wound - Other Wound Culture - Preliminary Staphylococcus aureus Goal Trough: 10-15 mcg/mL Pharmacy Plan for Drug Dosing: The patient had a trough drawn which resulted in a value of 11.5 ( drawn appropriately). This is within the patient's goal trough level of 10-15. Will continue current regimen and reassess the vancomycin dosing in 4 days PLAN/RECOMMENDATIONS 1. Continue vancomycin 1500mg IV Q12hrs 2. Trough scheduled for 02/26/18 @1130 3. Pharmacy Service will continue to monitor and adjust dosing as required.
--- NOTE | 2018-02-22 16:00 | PCM.IMDPSTOP ---
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 Right lateral chest wall/lateral breast abscess. 2. MRSA. Post-Operative Diagnosis: Same. Surgery/Procedure Performed:: Surgical preparation right lateral chest wall/lateral breast with incision and drainage and excisional debridement abscess (48 cm2). Description of Surgical Findings:: The patient is a 22 year old female who was admitted because of increasing pain and redness and swelling in her right lateral chest wall/lateral breast area. A few days ago she went to the ED and had I&D of her right lateral chest wall abscess. However, despite drainage and being on an antibiotic, she still developed worsening symptomatology and came back to the ED and was admitted. She had a CT done which showed cellulitis and no definitive fluid collection and right axillary lymphadenopathy. She was started on Vancomycin and Zosyn. The drainage was cultured and came back with MRSA. I was asked to evaluate this patient for surgical options for treatment. Today the patient underwent surgical preparation right lateral chest wall/lateral breast with incision and drainage and excisional debridement abscess (48 cm2). Size of defect right lateral chest wall/lateral breast - 8 x 6 x 6 cm. Estimated Blood Loss: 50 ml. Specimen's removed: Right lateral chest wall/lateral breast abscess to Pathology and Microbiology. Drains: None. Type of Anesthesia:: General - Admit VTE Documentation VTE Present on Admission: No VTE Mechan Device Prophylaxis: SCD's VTE Pharm Prophylaxis ordered?: Yes
--- NOTE | 2018-02-22 16:03 | OP.PN_ITS ---
Immediate Post-Op Note Date of Procedure: 02/22/18 Primary Surgeon/Physician: Benjamin Garibay veterinarian helper: None Pre-Operative Diagnosis: 1. Right lateral chest wall/lateral breast abscess. 2. MRSA. Post-Operative Diagnosis: Same. Surgery/Procedure Performed:: Surgical preparation right lateral chest wall/ lateral breast with incision and drainage and excisional debridement abscess ( 48 cm2). Description of Surgical Findings:: The patient is a 22 year old female who was admitted because of increasing pain and redness and swelling in her right lateral chest wall/lateral breast area. A few days ago she went to the ED and had I&D of her right lateral chest wall abscess. However, despite drainage and being on an antibiotic, she still developed worsening symptomatology and came back to the ED and was admitted. She had a CT done which showed cellulitis and no definitive fluid collection and right axillary lymphadenopathy. She was started on Vancomycin and Zosyn. The drainage was cultured and came back with MRSA. I was asked to evaluate this patient for surgical options for treatment. Today the patient underwent surgical preparation right lateral chest wall/ lateral breast with incision and drainage and excisional debridement abscess ( 48 cm2). Size of defect right lateral chest wall/lateral breast - 8 x 6 x 6 cm. Estimated Blood Loss: 50 ml. Specimen's removed: Right lateral chest wall/lateral breast abscess to Pathology and Microbiology. Drains: None. Type of Anesthesia:: General - Admit VTE Documentation VTE Present on Admission: No VTE Mechan Device Prophylaxis: SCD's VTE Pharm Prophylaxis ordered?: Yes
--- NOTE | 2018-02-22 18:47 | PCM.OPRPT ---
Report of Operation Date of Procedure: 02/22/18 Pre-Operative Diagnosis: 1. Right lateral chest wall/lateral breast abscess. 2. MRSA. Post-Operative Diagnosis: Same. Surgery/Procedure Performed:: Surgical preparation right lateral chest wall/lateral breast with incision and drainage and excisional debridement abscess (48 cm2). Description of Surgical Findings:: The patient is a 22 year old female who was admitted because of increasing pain and redness and swelling in her right lateral chest wall/lateral breast area. A few days ago she went to the ED and had I&D of her right lateral chest wall abscess. However, despite drainage and being on an antibiotic, she still developed worsening symptomatology and came back to the ED and was admitted. She had a CT done which showed cellulitis and no definitive fluid collection and right axillary lymphadenopathy. She was started on Vancomycin and Zosyn. The drainage was cultured and came back with MRSA. I was asked to evaluate this patient for surgical options for treatment. Patient was informed of the risks and complications of the procedure including alternatives to surgery. These were discussed with the patient personally. Patient voices understanding and wishes to proceed. Size of defect right lateral chest wall/lateral breast - 8 x 6 x 6 cm. care aid: None Type of Anesthesia:: General Specimen's removed: Right lateral chest wall/lateral breast abscess to Pathology and Microbiology. Drains: None. Estimated Blood Loss (mL): 50 ml. Description of Procedure: Patient was taken to OR in supine position and was placed under general anesthesia. Her right lateral chest wall/lateral breast area was prepped and draped in the usual fashion. SCD's were placed for DVT prophylaxis. Perioperative antibiotics were given intravenously. Using xylocaine with epinephrine, the area was infiltrated. After waiting 5 minutes for the anesthetic to take effect, I proceeded with incision and drainage with a scalpel in the area of the induration and firmness which included the previous incision from I&D in the ED. A lot of fat necrosis was present. Thick pus was seen consistent with MRSA. A large firm indurated wall of fat necrosis was covering the pus pocket. It was adherent to the underlying latissimus muscle and chest wall musculature. It was sharply excised and debrided. Some of the tissue was sent to Microbiology for culture and the rest of the tissue was sent to Pathology for analysis to rule out carcinoma. There was some tunnelling laterally and extensive fat necrosis was sharply excised and debrided along with some of the overlying skin to make the wound care easier with the VAC. The antibiotics have improved the redness on the lateral breast and no surgical debridement needed to be done on the lateral breast area. The wound was irrigated with saline. Hemostasis was obtained with electrocautery. The size of the wound after incision and drainage and excisional debridement was 8 x 6 x 6 cm. The wound was dressed with Mepitel nonadherent dressing followed by Kerlix gauze with Betadine and dry Kerlix gauze and and ABD pad compression dressing. Patient tolerated the procedure well and was sent to PACU in satisfactory condition. She will be sent back upstairs for continued postop care. The VAC will be placed tomorrow. She will be sent home on antibiotics and pain medication. She will followup at the Wound Center after discharge. If there is a plateau in the healing process, can proceed with delayed closure with skin grafting or skin flap reconstruction. Grafts/Implants Used: None. - Complications None. - Admit VTE Documentation VTE Present on Admission: No VTE Mechan Device Prophylaxis: SCD's VTE Pharm Prophylaxis ordered?: Yes Code Visit Surgery Charges CPT - 03632 ICD-10 - L02.213, L03.313, N61.0, A49.02 17161 L02.213, L03.313, N61.0, A49.02
[2018-02-22] MEDS: buPROPion (XL) 300 MG TABLET.XL PO (21:46)
[2018-02-22] MEDS: Morphine 4 MG/ML Syringe 6 MG IV (23:07)
[2018-02-23 00:55] LABS: Bedside Glucose 169 mg/dL (70-110)
[2018-02-23] MEDS: oxyCODONE 5 MG Tablet PO ×4 (02:09→21:59)
[2018-02-23] MEDS: Ibuprofen 600 MG Tablet PO ×3 (02:10→17:56)
[2018-02-23 02:17] VITALS: BP 140/75; PULSE 86; RESP 16; TEMP 36.4; O2SAT 98
[2018-02-23] MEDS: Morphine 4 MG/ML Syringe 6 MG IV ×2 (04:26→08:35)
[2018-02-23 06:07] LABS: Hemoglobin 10.8 g/dl (12.0-15.0); Mean Corp Hgb Conc 31.8 g/gl (32-36); Mean Corpuscular Hgb 26.4 pg (27.0-32.0); Mean Corpuscular Volume 83.1 fL (81-99); Mean Platelet Vol. 11.1 fl (6.2-12.0); Platelet Count 217 K/mm3 (150-450); RBC Distribution Width CV 13.4 % (11.6-14.6); RBC Distribution Width SD 39.8 fl (35.1-43.9); Red Blood Count 4.09 M/mm3 (4.2-5.4); White Blood Count 7.3 K/mm3 (4.4-11.0)
[2018-02-23 06:14] LABS: Scan Indicated on CBC? Y/N NO
[2018-02-23 06:32] LABS: Anion Gap 8 (5-15); BUN 6 mg/dL (7-18); BUN/Creat Ratio 8.1 RATIO (10-20); Chloride 108 mmol/L (98-107); Creatinine, Serum 0.74 mg/dL (0.55-1.02); EST Glomerular Filtration Rate 102 mL/min (>60); Est Glom Filt Rate - Afr Amer 123 mL/min (>60); Estimated Creatinine Clearance 109.74 ml/min; Glucose 120 mg/dL (74-106); Potassium 3.8 mmol/L (3.5-5.1); Sodium Level 142 mmol/L (136-145)
[2018-02-23] MEDS: Mupirocin Ointment 22gm Tube 1 APPLIC NASAL ×2 (08:34→22:00)
[2018-02-23] MEDS: 0.9% NaCl Peripheral Flush Adult/Peds IV ×2 (08:42→13:19)
[2018-02-23 08:44] VITALS: BP 128/61; PULSE 67; RESP 14; TEMP 37.1; O2SAT 97
--- NOTE | 2018-02-23 10:05 | NURSING ---
wound photo: right lateral chest
[2018-02-23] MEDS: CHLORHEXIDINE GLUC 2% CLOTH 1 EACH TOWELETTE TOPICAL (13:19)
--- NOTE | 2018-02-23 13:55 | CASEMGMT ---
ÁLVARO MASTERSON NOTE: RN ALEJA notified pt will need [facility] services for wound vac changes. ÁLVARO MASTERSON called [address] [facility] agencies that are in-network with [facility] and all denied patient d/t staffing issues or pt out of service area. Referral packet sent to [facility]. Evelin Butler from [facility] called back and stated they are able to accept pt. ÁLVARO MASTERSON will continue to follow this patient and plan for safe discharge. Nishant SHAHID RN, CM
[2018-02-23 16:34] VITALS: BP 119/60; PULSE 76; RESP 16; TEMP 36.7; O2SAT 98
--- NOTE | 2018-02-23 17:47 | OP.PCM_ITS ---
Report of Operation Date of Procedure: 02/22/18 Pre-Operative Diagnosis: 1. Right lateral chest wall/lateral breast abscess. 2. MRSA. Post-Operative Diagnosis: Same. Surgery/Procedure Performed:: Surgical preparation right lateral chest wall/ lateral breast with incision and drainage and excisional debridement abscess ( 48 cm2). Description of Surgical Findings:: The patient is a 22 year old female who was admitted because of increasing pain and redness and swelling in her right lateral chest wall/lateral breast area. A few days ago she went to the ED and had I&D of her right lateral chest wall abscess. However, despite drainage and being on an antibiotic, she still developed worsening symptomatology and came back to the ED and was admitted. She had a CT done which showed cellulitis and no definitive fluid collection and right axillary lymphadenopathy. She was started on Vancomycin and Zosyn. The drainage was cultured and came back with MRSA. I was asked to evaluate this patient for surgical options for treatment. Patient was informed of the risks and complications of the procedure including alternatives to surgery. These were discussed with the patient personally. Patient voices understanding and wishes to proceed. Size of defect right lateral chest wall/lateral breast - 8 x 6 x 6 cm. screwhead stoner and polisher: None Type of Anesthesia:: General Specimen's removed: Right lateral chest wall/lateral breast abscess to Pathology and Microbiology. Drains: None. Estimated Blood Loss (mL): 50 ml. Description of Procedure: Patient was taken to OR in supine position and was placed under general anesthesia. Her right lateral chest wall/lateral breast area was prepped and draped in the usual fashion. SCD's were placed for DVT prophylaxis. Perioperative antibiotics were given intravenously. Using xylocaine with epinephrine, the area was infiltrated. After waiting 5 minutes for the anesthetic to take effect, I proceeded with incision and drainage with a scalpel in the area of the induration and firmness which included the previous incision from I&D in the ED. A lot of fat necrosis was present. Thick pus was seen consistent with MRSA. A large firm indurated wall of fat necrosis was covering the pus pocket. It was adherent to the underlying latissimus muscle and chest wall musculature. It was sharply excised and debrided. Some of the tissue was sent to Microbiology for culture and the rest of the tissue was sent to Pathology for analysis to rule out carcinoma. There was some tunnelling laterally and extensive fat necrosis was sharply excised and debrided along with some of the overlying skin to make the wound care easier with the VAC. The antibiotics have improved the redness on the lateral breast and no surgical debridement needed to be done on the lateral breast area. The wound was irrigated with saline. Hemostasis was obtained with electrocautery. The size of the wound after incision and drainage and excisional debridement was 8 x 6 x 6 cm. The wound was dressed with Mepitel nonadherent dressing followed by Kerlix gauze with Betadine and dry Kerlix gauze and and ABD pad compression dressing. Patient tolerated the procedure well and was sent to PACU in satisfactory condition. She will be sent back upstairs for continued postop care. The VAC will be placed tomorrow. She will be sent home on antibiotics and pain medication. She will followup at the [facility] after discharge. If there is a plateau in the healing process, can proceed with delayed closure with skin grafting or skin flap reconstruction. Grafts/Implants Used: None. - Complications None. - Admit VTE Documentation VTE Present on Admission: No VTE Mechan Device Prophylaxis: SCD's VTE Pharm Prophylaxis ordered?: Yes Code Visit Surgery Charges CPT - 85965 ICD-10 - L02.213, L03.313, N61.0, A49.02 94969 L02.213, L03.313, N61.0, A49.02
[2018-02-23] MEDS: Magnesium Hydroxide 30 ML UDC PO (17:57)
--- NOTE | 2018-02-23 18:41 | PN.SURG_ITS ---
Patient Problems: Active and Suspected Problems Cellulitis (Acute) Abscess of right breast (Acute) Subjective: Postop #1 Patient is resting comfortably. VAC applied today. - Physical Exam General: Alert, Oriented x3 HEENT: PERRLA, EOMI Oral: Moist Mucosa Neck: Supple Abdomen: Soft, Non-Distended Skin: Ulcer/ Wound - right lateral chest wall/lateral breast wound is stable. No bleeding noted. VAC applied today. Neurological: Cranial nerves II-XII grossly intact Psych/Mental Status: Normal Affect, Appropriate Vital Signs Temp Pulse Resp BP Pulse Ox 98.1 F 76 16 119/60 98 02/23/18 16:34 02/23/18 16:34 02/23/18 16:34 02/23/18 16:34 02/23/18 16:34 Oxygen Delivery Method Room Air Weight: 228 lb Body Mass Index (BMI) 36.8 Intake and Output for Last 24 Hours 02/21/18 02/22/18 02/23/18 23:59 23:59 23:59 Intake Total 1298 / 1298 700 / 700 Output Total 575 / 575 Balance 723 / 723 700 / 700 Microbiology Past 72 Hours 02/21/18 02:00 Gram Stain - Final Wound - Other Wound Culture - Final Meth. resistant Staph. aureus Anaerobic Culture - Final No anaerobic bacteria isolated. 02/22/18 Unknown Gram Stain - Final Tissue - Breast Wound Culture - Preliminary Staphylococcus aureus 02/21/18 00:24 Blood Culture - Preliminary Blood Culture (Wb) - Anticubital Left No growth in 48 hours. 02/21/18 00:24 Blood Culture - Preliminary Blood Culture (Wb) - Left Hand No growth in 48 hours. Laboratory Tests Past 24 Hrs 02/23/18 02/23/18 05:40 05:40 WBC 7.3 RBC 4.09 L Hgb 10.8 L Hct 34.0 L MCV 83.1 MCH 26.4 L MCHC 31.8 L RDW 13.4 RDW Differential 39.8 Plt Count 217 MPV 11.1 Sodium 142 Potassium 3.8 Chloride 108 H Carbon Dioxide 26.0 Anion Gap 8 BUN 6 L Creatinine 0.74 Estim Creat Clear Calc 109.74 Est GFR (MDRD) Af Amer 123 Est GFR (MDRD) Non-Af 102 BUN/Creatinine Ratio 8.1 L Glucose 120 H Calcium 9.0 Prealbumin 15.0 L POC Glucose 07/18/18 00:49 POC Glucose 169 H Medical Necessity - Tobacco Use Smoking Status: Never smoker Tobacco Use: Secondhand Assessment/Plan All Active Problems Cellulitis (Acute) Abscess of right breast (Acute) Acute pyelonephritis (Acute) Fever (Acute) Right flank pain (Acute) 1. Right lateral chest wall/lateral breast abscess. 2. MRSA. 3. s/p surgical preparation right lateral chest wall/lateral breast with incision and drainage and excisional debridement abscess (48 cm2). Continue Vancomycin. Culture thus far shows MRSA. VAC applied today. To be changed three times per week at 150 mmHg continuous suction. Prealbumin little low at 15.0. Encourage nutritional supplementation with protein to help the healing process. Awaiting further cultures to determine antibiotics before discharge. Followup at [facility]ound Center in 3 weeks on 03/14/18. If there is a plateau in the healing process, can proceed with delayed closure with skin grafting. Wrote scripts for Percocet for pain (60 tabs) and for Valium for spasm (30 tabs) .
--- NOTE | 2018-02-23 19:25 | PCM.PROGNOTE ---
Patient Problems: Active and Suspected Problems Cellulitis of right breast (Acute) Cellulitis of chest wall (Acute) Abscess of chest wall (Acute) abscess right lateral chest wall/lateral breast area Cellulitis and abscess of other specified site (Acute) MRSA (methicillin resistant Staphylococcus aureus) infection (Acute) Subjective: Postoperative day #1 Afebrile since admission Vital signs stable Wound culture is growing staph aureus-sensitivities are still pending White blood cell count is 7.3 today and the hemoglobin is stable at 10.8. BMP, BUN and creatinine are unremarkable. She continues to complain of pain however she states it is improving somewhat. Objective: GENERAL: alert, oriented X 3, Cooperative, appears to have better pain control today....Does not appear to be in any significant distress....describes her pain as an 8 but she is fussing with her cell phone while I am talking with her and she is not restless ORAL: moist mucosa, no mucosal lesions NECK: No JVD, supple, trachea midline LUNGS: CTA, symmetric chest expansion HEART: RRR, Normal S1 and S2, no rub, no gallop ABDOMEN: soft, NT, ND, BS present, no guarding with palpation EXTREMITIES: no edema, no cyanosis, no calf tenderness SKIN: Wound vac to be placed today. The shayla-wound erythema has improved. The wound base is clean with no purulent DC and no odor NEUROLOGIC: no focal neurologic deficits PSYCH: appropriate, normal affect, pleasant - Physical Exam Vital Signs Temp Pulse Resp BP Pulse Ox 98.1 F 76 16 119/60 98 02/23/18 16:34 02/23/18 16:34 02/23/18 16:34 02/23/18 16:34 02/23/18 16:34 Oxygen Delivery Method Room Air Weight: 228 lb Body Mass Index (BMI) 36.8 Intake and Output for Last 24 Hours 02/21/18 02/22/18 02/23/18 23:59 23:59 23:59 Intake Total 1298 / 1298 700 / 700 Output Total 575 / 575 Balance 723 / 723 700 / 700 Microbiology Past 72 Hours 02/21/18 02:00 Gram Stain - Final Wound - Other Wound Culture - Final Meth. resistant Staph. aureus Anaerobic Culture - Final No anaerobic bacteria isolated. 02/22/18 Unknown Gram Stain - Final Tissue - Breast Wound Culture - Preliminary Staphylococcus aureus 02/21/18 00:24 Blood Culture - Preliminary Blood Culture (Wb) - Anticubital Left No growth in 48 hours. 02/21/18 00:24 Blood Culture - Preliminary Blood Culture (Wb) - Left Hand No growth in 48 hours. Laboratory Tests Past 24 Hrs 02/23/18 02/23/18 05:40 05:40 WBC 7.3 RBC 4.09 L Hgb 10.8 L Hct 34.0 L MCV 83.1 MCH 26.4 L MCHC 31.8 L RDW 13.4 RDW Differential 39.8 Plt Count 217 MPV 11.1 Sodium 142 Potassium 3.8 Chloride 108 H Carbon Dioxide 26.0 Anion Gap 8 BUN 6 L Creatinine 0.74 Estim Creat Clear Calc 109.74 Est GFR (MDRD) Af Amer 123 Est GFR (MDRD) Non-Af 102 BUN/Creatinine Ratio 8.1 L Glucose 120 H Calcium 9.0 Prealbumin 15.0 L POC Glucose 02/23/18 00:49 POC Glucose 169 H Medical Necessity - Tobacco Use Smoking Status: Never smoker Tobacco Use: Secondhand Assessment/Plan All Active Problems Cellulitis of right breast (Acute) Cellulitis of chest wall (Acute) Abscess of chest wall (Acute) Cellulitis and abscess of other specified site (Acute) MRSA (methicillin resistant Staphylococcus aureus) infection (Acute) Abscess of right breast (Ruled-out) Acute pyelonephritis (Resolved) Impressions 1. Right lateral chest wall abscess with PCR positive for MRSA and wound culture + for Staph Aureus with sensitivities pending 2. Obesity 3. History of depression 4. Hypokalemia Continue vancomycin Await the sensitivities for the MRSA Probable discharge tomorrow on oral antibiotics with a wound VAC and home health care if the sensitivities are back. Code Visit Inpatient E&M: 78181 Subs Hosp L2
[2018-02-23 20:33] VITALS: BP 118/67; PULSE 79; RESP 16; TEMP 36.6; O2SAT 96
[2018-02-23] MEDS: buPROPion (XL) 300 MG TABLET.XL PO (21:59)
[2018-02-24] MEDS: Ibuprofen 600 MG Tablet PO ×3 (00:55→16:48)
[2018-02-24 03:00] VITALS: BP 119/68; PULSE 81; RESP 16; TEMP 36.6; O2SAT 98
[2018-02-24] MEDS: oxyCODONE 5 MG Tablet PO ×2 (04:17→13:26)
[2018-02-24] MEDS: Enoxaparin 40 MG/0.4 ML Syringe SC (05:28)
[2018-02-24] MEDS: Mupirocin Ointment 22gm Tube 1 APPLIC NASAL (08:24)
[2018-02-24] MEDS: CHLORHEXIDINE GLUC 2% CLOTH 1 EACH TOWELETTE TOPICAL (08:24)
[2018-02-24 08:26] VITALS: BP 127/76; PULSE 83; RESP 18; TEMP 36.8; O2SAT 97
--- NOTE | 2018-02-24 08:39 | NURSING ---
Pt should be discharged home today. Home VAC approved. reviewed home VAC, alarms, etc. with patient. proof of delivery form signed and faxed to [facility]. pt can be switched over to the home VAC once discharged. pt has been asking for pain medication frequently even though patient is on phone and laughing, still rates pain high.
--- NOTE | 2018-02-24 10:40 | DCINST_ITS ---
- Discharge Diagnoses Current Active Problems: Current Active and Chronic Problems Cellulitis (Acute) Abscess of right breast (Acute) You will use the following diet at home:: No restrictions Your food should be the consistency of: Regular Your liquids should be the consistency of: Regular/Thin Discharge Activity: May not drive while taking narcotic pain medications. Call your doctor if you observe: Fever of 101 or Higher Allergies/Adverse Reactions: Allergies No Known Allergies Allergy (Verified 02/20/18 20:27) Medications to take at Discharge bupropion HCl XL 300 mg 24 hr tablet, extended release 300 mg PO DAILY #30 tab 08/19/17 Diazepam [Valium] 5 mg PO 4X/DAY PRN PRN #30 tab 02/23/18 Oxycodone HCl/Acetaminophen [Percocet 5/325] 1 - 2 tab PO 4X/DAY PRN PRN 7 Days #60 tab 02/23/18 Doxycycline 100 mg PO BID #14 cap 02/24/18 Levofloxacin [Levaquin] 500 mg PO DAILY #14 tab 02/24/18 The following prescriptions were given: Diazepam [Valium] 5 mg PO 4X/DAY PRN PRN #30 tab PRN Reason: Spasms Levofloxacin [Levaquin] 500 mg PO DAILY #14 tab Oxycodone HCl/Acetaminophen [Percocet 5/325] 1 - 2 tab PO 4X/DAY PRN PRN 7 Days #60 tab PRN Reason: Pain Doxycycline 100 mg PO BID #14 cap Primary Care Physician: Dario Poe DO [Primary Care Provider] - Test Results: Test results from this visit will be discussed in further detail at your follow- up appointment, if applicable. Please Follow Up With: Benjamin Garibay MD - wound care center When: 03/14/18 at 10AM Proposed Discharge Date: 02/24/18
--- NOTE | 2018-02-24 11:00 | PCM.DC.SUM ---
Discharge Date and Diagnosis - Problem List Patient Problems: Active and Suspected Problems Cellulitis of right breast (Acute) Cellulitis of chest wall (Acute) Abscess of chest wall (Acute) abscess right lateral chest wall/lateral breast area Cellulitis and abscess of other specified site (Acute) MRSA (methicillin resistant Staphylococcus aureus) infection (Acute) Date of Admission: 02/21/18 Date of Discharge: 02/24/18 - Primary Discharge Diagnosis Active and Suspected Problems Cellulitis and abscess Right lateral chest wall Cellulitis of the breast - ruled out MRSA (methicillin resistant Staphylococcus aureus) infection (Acute) Hypokalemia - Secondary Discharge Diagnosis Chronic Problems Obesity with BMI 38.0-38.9,adult (Chronic) Depression (Chronic) Hospital Course and Treatment Imaging Results: Clinical Impression(s) from Imaging Studies Chest CT 02/20/18 20:56 IMPRESSION: Subcutaneous stranding in the right lateral chest wall but no discrete fluid collection. This likely represents cellulitis. Right axillary lymphadenopathy. Clear lungs. Electronically Signed: Trenton Zoe, at 22:57 EDT Tel , Service support , Microbiology 02/22/18 Unknown Tissue - Breast Gram Stain - Final 02/22/18 Unknown Tissue - Breast Wound Culture - Final Meth. resistant Staph. aureus 02/21/18 02:00 Wound - Other Gram Stain - Final 02/21/18 02:00 Wound - Other Wound Culture - Final Meth. resistant Staph. aureus 02/21/18 02:00 Wound - Other Anaerobic Culture - Final No anaerobic bacteria isolated. 02/21/18 00:24 Blood Culture (Wb) - Anticubital Left Blood Culture - Preliminary No growth in 48 hours. 02/21/18 00:24 Blood Culture (Wb) - Left Hand Blood Culture - Preliminary No growth in 48 hours. Consultations 02/21/18 05:46 Consult: Onc/Wound/driver wheelchair Routine Comment: Dr. Benjamin Garibay-plastic surgery Operations: - - Incision and drainage with excisional debridement of abscess right lateral chest wall by Dr. garibay on 02/22/18 Procedures: Wound vac placement Summary of Care Provided: Patient is a 22-year-old female admitted to the hospital for cellulitis of the right breast. She had been seen in the emergency room on 02/19/2018 and had incision and drainage of right lateral chest wall abscess. NJo specimen was sent for C&S. She was discharged home with a prescription for Keflex 4 times daily. She was instructed to take Tylenol or Motrin for pain. She returned to the emergency room on 02/20/2018 complaining of increased pain, fever and chills, N/V. Per the examination by the emergency room physician there was increased erythema when compared to the previous day. CT scan of the chest wall with IV contrast showed subcutaneous stranding in the right lateral chest wall but no discrete fluid collection. Right axillary adenopathy was present. White blood cell count was normal at 10 with an unremarkable differential. Platelets were mildly decreased at 137,000. Potassium was low at 3.2 and the remainder of the BMP was unremarkable. PCR on the wound drainage was positive for MRSA. She was admitted to the hospital and started on Zosyn and vancomycin. A PCR on the drainage from the wound was positive for MRSA. Dr. Garibay was consulted for incision and drainage. She was taken to the OR on 02/22/2018 for IND with excisional debridement. Size of the defect in the right lateral chest wall postoperatively was 8 cm x 6 cm x 6 cm. A wound VAC was placed on 02/23/2018. The MRSA was sensitive to doxycycline, fluoroquinolones, Bactrim. She was discharged on doxycycline 100 mg twice daily for 7 more days. Home health care was arranged to manage the wound VAC and the patient will follow up with Dr. Garibay in the wound care center on 03/14/2018 at 10 AM. Discharge Activity: May not drive while taking narcotic pain medications. Call your doctor if you observe: Fever of 101 or Higher Home Medications: Medications to take at Discharge bupropion HCl XL 300 mg 24 hr tablet, extended release 300 mg PO DAILY #30 tab 08/19/17 Diazepam [Valium] 5 mg PO 4X/DAY PRN PRN #30 tab 02/23/18 Oxycodone HCl/Acetaminophen [Percocet 5/325] 1 - 2 tab PO 4X/DAY PRN PRN 7 Days #60 tab 02/23/18 Doxycycline 100 mg PO BID #14 cap 02/24/18 Levofloxacin [Levaquin] 500 mg PO DAILY #14 tab 02/24/18 Following Prescrptions Were Given to Patient: Diazepam [Valium] 5 mg PO 4X/DAY PRN PRN #30 tab PRN Reason: Spasms Levofloxacin [Levaquin] 500 mg PO DAILY #14 tab Oxycodone HCl/Acetaminophen [Percocet 5/325] 1 - 2 tab PO 4X/DAY PRN PRN 7 Days #60 tab PRN Reason: Pain Doxycycline 100 mg PO BID #14 cap Primary Care Physician: Dario Poe DO [Primary Care Provider] - Please Follow Up With: Benjamin Garibay MD - wound care center When: 03/14/18 at 10AM Disposition: Home with Home Health Minutes spent on discharge:: 30 Patient Condition:: Good Medical Necessity - Tobacco Use Smoking Status: Never smoker Tobacco Use: Secondhand Meaningful Use Info Meaningful Use Diagnoses (Choose all that apply): None applicable Code Visit Inpatient E&M: 31675 Disch Hosp
--- NOTE | 2018-02-24 11:04 | DS.PCM_ITS ---
Discharge Date and Diagnosis - Problem List Patient Problems: Active and Suspected Problems Cellulitis of right breast (Acute) Cellulitis of chest wall (Acute) Abscess of chest wall (Acute) abscess right lateral chest wall/lateral breast area Cellulitis and abscess of other specified site (Acute) MRSA (methicillin resistant Staphylococcus aureus) infection (Acute) Date of Admission: 02/21/18 Date of Discharge: 02/24/18 - Primary Discharge Diagnosis Active and Suspected Problems Cellulitis and abscess Right lateral chest wall Cellulitis of the breast - ruled out MRSA (methicillin resistant Staphylococcus aureus) infection (Acute) Hypokalemia - Secondary Discharge Diagnosis Chronic Problems Obesity with BMI 38.0-38.9,adult (Chronic) Depression (Chronic) Hospital Course and Treatment Imaging Results: Clinical Impression(s) from Imaging Studies Chest CT 02/20/18 20:56 IMPRESSION: Subcutaneous stranding in the right lateral chest wall but no discrete fluid collection. This likely represents cellulitis. Right axillary lymphadenopathy. Clear lungs. Electronically Signed: Trenton Zoe, at 22:57 EDT Tel , Service support , Microbiology 02/22/18 Unknown Tissue - Breast Gram Stain - Final 02/22/18 Unknown Tissue - Breast Wound Culture - Final Meth. resistant Staph. aureus 02/21/18 02:00 Wound - Other Gram Stain - Final 02/21/18 02:00 Wound - Other Wound Culture - Final Meth. resistant Staph. aureus 02/21/18 02:00 Wound - Other Anaerobic Culture - Final No anaerobic bacteria isolated. 02/21/18 00:24 Blood Culture (Wb) - Anticubital Left Blood Culture - Preliminary No growth in 48 hours. 02/21/18 00:24 Blood Culture (Wb) - Left Hand Blood Culture - Preliminary No growth in 48 hours. Consultations 02/21/18 05:46 Consult: Onc/Wound/greige goods marker Routine Comment: Dr. Benjamin Garibay-plastic surgery Operations: - - Incision and drainage with excisional debridement of abscess right lateral chest wall by Dr. garibay on 02/22/18 Procedures: Wound vac placement Summary of Care Provided: Patient is a 22-year-old female admitted to the hospital for cellulitis of the right breast. She had been seen in the emergency room on 02/19/2018 and had incision and drainage of right lateral chest wall abscess. NJo specimen was sent for C&S. She was discharged home with a prescription for Keflex 4 times daily. She was instructed to take Tylenol or Motrin for pain. She returned to the emergency room on 02/20/2018 complaining of increased pain, fever and chills , N/V. Per the examination by the emergency room physician there was increased erythema when compared to the previous day. CT scan of the chest wall with IV contrast showed subcutaneous stranding in the right lateral chest wall but no discrete fluid collection. Right axillary adenopathy was present. White blood cell count was normal at 10 with an unremarkable differential. Platelets were mildly decreased at 137,000. Potassium was low at 3.2 and the remainder of the BMP was unremarkable. PCR on the wound drainage was positive for MRSA. She was admitted to the hospital and started on Zosyn and vancomycin. A PCR on the drainage from the wound was positive for MRSA. Dr. Garibay was consulted for incision and drainage. She was taken to the OR on 02/22/2018 for IND with excisional debridement. Size of the defect in the right lateral chest wall postoperatively was 8 cm x 6 cm x 6 cm. A wound VAC was placed on 02/23/2018. The MRSA was sensitive to doxycycline, fluoroquinolones, Bactrim. She was discharged on doxycycline 100 mg twice daily for 7 more days. Home health care was arranged to manage the wound VAC and the patient will follow up with Dr. Garibay in the wound care center on 03/14/2018 at 10 AM. Discharge Activity: May not drive while taking narcotic pain medications. Call your doctor if you observe: Fever of 101 or Higher Home Medications: Medications to take at Discharge bupropion HCl XL 300 mg 24 hr tablet, extended release 300 mg PO DAILY #30 tab 08/19/17 Diazepam [Valium] 5 mg PO 4X/DAY PRN PRN #30 tab 02/23/18 Oxycodone HCl/Acetaminophen [Percocet 5/325] 1 - 2 tab PO 4X/DAY PRN PRN 7 Days #60 tab 02/23/18 Doxycycline 100 mg PO BID #14 cap 02/24/18 Levofloxacin [Levaquin] 500 mg PO DAILY #14 tab 02/24/18 Following Prescrptions Were Given to Patient: Diazepam [Valium] 5 mg PO 4X/DAY PRN PRN #30 tab PRN Reason: Spasms Levofloxacin [Levaquin] 500 mg PO DAILY #14 tab Oxycodone HCl/Acetaminophen [Percocet 5/325] 1 - 2 tab PO 4X/DAY PRN PRN 7 Days #60 tab PRN Reason: Pain Doxycycline 100 mg PO BID #14 cap Primary Care Physician: Dario Poe DO [Primary Care Provider] - Please Follow Up With: Benjamin Garibay MD - wound care center When: 03/14/18 at 10AM Disposition: Home with Home Health Minutes spent on discharge:: 30 Patient Condition:: Good Medical Necessity - Tobacco Use Smoking Status: Never smoker Tobacco Use: Secondhand Meaningful Use Info Meaningful Use Diagnoses (Choose all that apply): None applicable Code Visit Inpatient E&M: 40713 Disch Hosp
--- NOTE | 2018-02-24 13:00 | CASEMGMT ---
ÁLVARO MASTERSON confirmed with [facility] start of care for tomorrow and faxed discharge instructions. ÁLVARO MASTERSON updated patient that [facility] would be following patient and will see her tomorrow.
[2018-02-24] MEDS: Acetaminophen 500 MG Tablet 1000 MG PO (13:27)
[2018-02-24] MEDS: levoFLOXacin 500 MG Tablet PO (14:52)
--- NOTE | 2018-02-24 15:07 | NURSING ---
pt states can not leave until 6:30 pm d/t boyfriend works until then
--- NOTE | 2018-02-24 16:00 | NURSING ---
Per Dr. Cruz patient does not need both Levaquin and Doxy. She only needs the Doxycycline. Ivory REA aware, will call [facility].
--- NOTE | 2018-02-24 18:37 | NURSING ---
Reviewed discharge instructions with patient and significant other. Paper scripts given for percocet and valium and patient aware that antibiotic script was sent to [facility]. Home wound vac applied. Pt verbalizes understanding.
== END 2018-02-24 18:35 | disposition home or self-care (01) | DRG 263 ==
LOC: ED 20:46 → MS3 23:16
PROVIDERS: Surgery; Admitting Provider Internal Medicine; Emergency Provider Emergency Medicine; Family Provider Student in an Organized Health Care Education/Training Program; PCP Student in an Organized Health Care Education/Training Program; Visit Provider Internal Medicine
PROC: 0JB60ZZ Excision of Chest Subcutaneous Tissue and Fascia, Open Approach (ICD-10-PCS; CPT 19020; principal; 2018-02-22 14:00)
DX: L03.313 Cellulitis of chest wall (principal); N10 Acute pyelonephritis; L02.213 Cutaneous abscess of chest wall; B95.62 Methicillin resistant Staphylococcus aureus infection as the cause of diseases classified elsewhere; N61.1 Abscess of the breast and nipple; E87.6 Hypokalemia; F32.9 Major depressive disorder, single episode, unspecified; F41.9 Anxiety disorder, unspecified; E66.9 Obesity, unspecified; R59.0 Localized enlarged lymph nodes; Z68.38 Body mass index [BMI] 38.0-38.9, adult; Z77.22 Contact with and (suspected) exposure to environmental tobacco smoke (acute) (chronic)
CPT/HCPCS: 36415; 71260; 80048; 80202; 81001; 82962; 83036; 84134; 85025; 85027; 85652; 87040; 87070; 87075; 87077; 87102; 87186; 87205; 87206; 87640; 88304; 88312; 97802; 99283; J7030; J7040; Q9967; A4216; J2405

== ENCOUNTER 2018-03-28 12:15 | Outpatient (RCR) | payer MEDICAID, SELFPAY ==
[2018-03-14 10:34] VITALS: BP 118/59; PULSE 95; RESP 16; TEMP 37.1; BMI 36.8
--- NOTE | 2018-03-14 17:22 | PCM.WC.PN ---
Type of Wound Date of Service: 03/14/18 Chief Complaint: Open surgical MRSA wound right lateral chest wall. History of Wound: Surgery 02/22/18 - Surgical preparation right lateral chest wall/lateral breast with incision and drainage and excisional debridement abscess (48 cm2). Wound care - VAC. Operative culture - MRSA. She was discharged on Doxycycline. Prealbumin was 15.0 on 02/22/18. Encourage nutritional supplementation with protein to help the healing process. Today she denies fever. Her appetite is good. Progress of Wound: Improved. - Physical Exam Vital Signs Temp Pulse Resp BP 98.7 F 95 16 118/59 L 03/14/18 10:34 03/14/18 10:34 03/14/18 10:34 03/14/18 10:34 Wound Measurements and Assessment WC - Nurse 1 - General Ulcer Measurement Start: 03/14/18 10:31 Freq: Status: Active Protocol: Activity Type Activity Date Activity User E-Sign Co-Sign Detail Recorded Client Recorded Date Recorded By Document 03/14/18 10:34 [id number] 03/14/18 10:58 03/14/18 10:34 Wound Center Nurse 1 [Ulcer Assessment] #1 RIGHT UPPER RIB AREA -Combined with other wound No -Current Size (cm) - Length 2.9 -Current Size (cm) - Width 10.4 -Current Size (cm) - Depth 0.5 -Total Square Cm 30.16 -Date of Last Picture (Recall this 03/14/18 field) -Photo Taken Yes -Epithelialization None Present -Tunneling No -Undermining/Tunneling Yes -Undermining/Tunneling Starts (O' 10 clock) -Undermining/Tunneling Ends (O'clock) 2 -Maximum Distance (cm) 0.5 -Circular Undermining No -Exudate Amt Large (67-100%) -Exudate Type Serosanguineous -Wound Margin Distinct, Outline Attached -Granulation Amt Large (67-100%) -Granulation Quality Red -Slough/Fibrin No -Necrosis Amt None Present (0 %) -Necrotic Tissue Type Adherent Slough -Structure Exposed None/Limited to Skin Breakdown -Texture (Nilsa-wound Skin Appearance) No Abnormality Assessed -Moisture (Nilsa-wound Skin Appearance No Abnormality ) Assessed -Color (Nilsa-wound Skin Appearance) No Abnormality Assessed -Temperature (Nilsa-wound Skin No Abnormality Appearance) (Pt Warm) -Tenderness on Palpation (Nilsa-wound Yes Skin Appearance) -Ulcer Cleansing Wound Cleanser -Foul Odor after Cleansing No -Anesthetic Used 4% Lidocaine Solution [Edema Assessment] -Lower Limb Edema Present NA - Nurse 2 - General Ulcer CM Notes Start: 03/14/18 10:31 Freq: Status: Active Protocol: Activity Type Activity Date Activity User E-Sign Co-Sign Detail Recorded Client Recorded Date Recorded By Document 03/14/18 11:36 [id number] 03/14/18 11:38 03/14/18 11:36 Wound Center Nurse 2 [Procedure/Treatment] #1 RIGHT UPPER RIB AREA -Time 11:36 -Correct Patient Yes -Correct Side, Site, Position Yes -Correct Procedure Yes -Procedure Performed Yes -Type of Procedure Debridement -Clinical Debridement Subcutaneous -Post Debridement Size (cm) - Length 3 -Post Debridement Size (cm) - Width 10.5 -Post Debridement Size (cm) - Depth 0.5 -Total Square Cm 31.5 -Wound/Ulcer Outcome Not Healed -Ulcer Cleansing Rinsed/ Irrigated with Saline -Foul Odor after Cleansing No -Bioengineered Tissue No -Bleeding Controlled with Pressure -Treatment Response Procedure Tolerated Well [See Physician Procedure note for Specifics] Pain Scale: 0-10 Numeric [Pain] -Is Patient Pain Free? Yes Debridement Note Post-Debridement Measurements/Treatment - Nurse 2 - General Ulcer CM Notes Start: 03/14/18 10:31 Freq: Status: Active Protocol: Activity Type Activity Date Activity User E-Sign Co-Sign Detail Recorded Client Recorded Date Recorded By Document 03/14/18 11:36 [id number] 03/14/18 11:38 03/14/18 11:36 Wound Center Nurse 2 #1 RIGHT UPPER RIB AREA -Time 11:36 -Correct Patient Yes -Correct Side, Site, Position Yes -Correct Procedure Yes -Procedure Performed Yes -Type of Procedure Debridement -Clinical Debridement Subcutaneous -Post Debridement Size (cm) - Length 3 -Post Debridement Size (cm) - Width 10.5 -Post Debridement Size (cm) - Depth 0.5 -Total Square Cm 31.5 -Wound/Ulcer Outcome Not Healed -Ulcer Cleansing Rinsed/ Irrigated with Saline -Foul Odor after Cleansing No -Bioengineered Tissue No -Bleeding Controlled with Pressure -Treatment Response Procedure Tolerated Well Pain Scale: 0-10 Numeric Is Patient Pain Free? Yes Wound debrided: #1 Right lateral chest wall. Laterality: Right Wound Grade/Stage: 3. Type of Debridement: Excisional debridement Anesthesia Used: 4% Lidocaine Solution Depth: Down to and including healthy tissue, in the subcutaneous layer Percentage of wound debrided: 100 Instrument Used: 7mm curette Tissue Removed: subcutaneous tissue. Severity: Fat Layer Exposed Amount of bleeding with debridement: Mild Bleeding Controlled with: Pressure Patient tolerated procedure well Assessment/Plan Assessment: 1. Open surgical MRSA wound right lateral chest wall. 2. MRSA. 3. Right lateral chest wall abscess. 4. s/p surgical preparation right lateral chest wall/lateral breast with incision and drainage and excisional debridement abscess (48 cm2). Plan: Continue VAC to be changed three times per week at 150 mmHg continuous suction. Continue Doxycycilne for the MRSA. Prealbumin was 15.0 on 02/22/18. Encourage nutritional supplementation with protein to help the healing process. Renewed her Percocet for pain (40 tabs). With the improvement in the wound, discussed possible delayed secondary wound closure. She is interested but wants to think about it. Followup 2 weeks.
[2018-03-28 12:56] VITALS: BP 146/85; PULSE 84; RESP 18; TEMP 37.2; BMI 36.8
--- NOTE | 2018-03-28 22:52 | PCM.WC.PN ---
Type of Wound Date of Service: 03/28/18 Chief Complaint: Nonhealing MRSA ulcer right lateral chest wall. History of Wound: Surgery 02/22/18 - Surgical preparation right lateral chest wall/lateral breast with incision and drainage and excisional debridement abscess (48 cm2). Wound care - VAC. Operative culture - MRSA. She was discharged on Doxycycline. Prealbumin was 15.0 on 02/22/18. Encourage nutritional supplementation with protein to help the healing process. Today she denies fever. Her appetite is good. Progress of Wound: Improved. - Physical Exam Vital Signs Temp Pulse Resp BP 98.9 F 84 18 146/85 H 03/28/18 12:56 03/28/18 12:56 03/28/18 12:56 03/28/18 12:56 Wound Measurements and Assessment WC - Nurse 1 - General Ulcer Measurement Start: 03/14/18 10:31 Freq: Status: Active Protocol: Activity Type Activity Date Activity User E-Sign Co-Sign Detail Recorded Client Recorded Date Recorded By Document 03/28/18 12:56 [id number] 03/28/18 13:02 03/28/18 12:56 Wound Center Nurse 1 [Ulcer Assessment] #1 RIGHT UPPER RIB AREA -Combined with other wound No -Current Size (cm) - Length 2.0 -Current Size (cm) - Width 8.4 -Current Size (cm) - Depth 1.6 -Total Square Cm 16.80 -Photo Taken No -Epithelialization None Present -Tunneling No -Undermining/Tunneling Yes -Undermining/Tunneling Starts (O' 1 clock) -Undermining/Tunneling Ends (O'clock) 2 -Maximum Distance (cm) 1.3 -Circular Undermining No -Exudate Amt Medium (34-66%) -Exudate Type Serosanguineous -Wound Margin Distinct, Outline Attached -Granulation Amt Medium (34-66%) -Granulation Quality Red -Necrosis Amt None Present (0 %) -Necrotic Tissue Type Adherent Slough -Structure Exposed None/Limited to Skin Breakdown -Texture (Nilsa-wound Skin Appearance) Scarring -Color (Nilsa-wound Skin Appearance) No Abnormality Assessed -Temperature (Nilsa-wound Skin No Abnormality Appearance) (Pt Warm) -Tenderness on Palpation (Nilsa-wound Yes Skin Appearance) -Ulcer Cleansing Wound Cleanser -Anesthetic Used 4% Lidocaine Solution [Edema Assessment] -Lower Limb Edema Present NA - Nurse 2 - General Ulcer CM Notes Start: 03/14/18 10:31 Freq: Status: Active Protocol: Activity Type Activity Date Activity User E-Sign Co-Sign Detail Recorded Client Recorded Date Recorded By Document 03/28/18 13:38 [id number] 03/28/18 13:39 03/28/18 13:38 Wound Center Nurse 2 [Procedure/Treatment] #1 RIGHT UPPER RIB AREA -Time 13:38 -Correct Patient Yes -Correct Side, Site, Position Yes -Correct Procedure Yes -Procedure Performed Yes -Type of Procedure Debridement -Clinical Debridement Subcutaneous -Post Debridement Size (cm) - Length 2 -Post Debridement Size (cm) - Width 8.5 -Post Debridement Size (cm) - Depth 1.6 -Total Square Cm 17.0 -Wound/Ulcer Outcome Not Healed -Ulcer Cleansing Rinsed/ Irrigated with Saline -Foul Odor after Cleansing No -Bioengineered Tissue No -Bleeding Controlled with Pressure -Treatment Response Procedure Tolerated Well [See Physician Procedure note for Specifics] Pain Scale: 0-10 Numeric [Pain] -Is Patient Pain Free? Yes Debridement Note Post-Debridement Measurements/Treatment - Nurse 2 - General Ulcer CM Notes Start: 03/14/18 10:31 Freq: Status: Active Protocol: Activity Type Activity Date Activity User E-Sign Co-Sign Detail Recorded Client Recorded Date Recorded By Document 03/14/18 11:36 [id number] 03/14/18 11:38 Document 03/28/18 13:38 [id number] 03/28/18 13:39 03/14/18 03/28/18 11:36 13:38 Wound Center Nurse 2 #1 RIGHT UPPER RIB AREA -Time 11:36 13:38 -Correct Patient Yes Yes -Correct Side, Site, Position Yes Yes -Correct Procedure Yes Yes -Procedure Performed Yes Yes -Type of Procedure Debridement Debridement -Clinical Debridement Subcutaneous Subcutaneous -Post Debridement Size (cm) - Length 3 2 -Post Debridement Size (cm) - Width 10.5 8.5 -Post Debridement Size (cm) - Depth 0.5 1.6 -Total Square Cm 31.5 17.0 -Wound/Ulcer Outcome Not Healed Not Healed -Ulcer Cleansing Rinsed/ Rinsed/ Irrigated with Irrigated with Saline Saline -Foul Odor after Cleansing No No -Bioengineered Tissue No No -Bleeding Controlled with Pressure Pressure -Treatment Response Procedure Procedure Tolerated Well Tolerated Well Pain Scale: 0-10 Numeric Is Patient Pain Free? Yes Yes Wound debrided: #1 Right lateral chest wall. Laterality: Right Wound Grade/Stage: 3. Type of Debridement: Excisional debridement Anesthesia Used: 4% Lidocaine Solution Depth: Down to and including healthy tissue, in the subcutaneous layer Percentage of wound debrided: 100 Instrument Used: 7mm curette Tissue Removed: subcuaneous tissue. Severity: Fat Layer Exposed Amount of bleeding with debridement: Mild Bleeding Controlled with: Pressure Patient tolerated procedure well Assessment/Plan Assessment: 1. Nonhealing MRSA ulcer right lateral chest wall. 2. MRSA. 3. Right lateral chest wall abscess. 4. s/p surgical preparation right lateral chest wall/lateral breast with incision and drainage and excisional debridement abscess (48 cm2). Plan: Continue VAC to be changed three times per week at 150 mmHg continuous suction. Continue Doxycycline for the MRSA. Prealbumin was 15.0 on 02/22/18. Encourage nutritional supplementation with protein to help the healing process. Renewed her Percocet for pain (30 tabs). With the improvement in the wound, discussed possible delayed secondary wound closure. She wants to proceed with the surgery. Will schedule in the next 1-2 weeks. Patient was informed of the risks and complications of the procedure including alternatives to surgery. These were discussed with her personally. She voices understanding and wishes to proceed. Followup 3 weeks.
== END 2018-04-08 23:59 ==
LOC: WC 12:15
PROVIDERS: Family Provider Student in an Organized Health Care Education/Training Program; PCP Student in an Organized Health Care Education/Training Program; Visit Provider Surgery
DX: L02.213 Cutaneous abscess of chest wall (principal); B95.62 Methicillin resistant Staphylococcus aureus infection as the cause of diseases classified elsewhere
CPT/HCPCS: 11042; 11045; 97605; 99213; G0463

== ENCOUNTER 2018-04-05 09:29 | Day surgery (SDC) | payer MEDICAID, SELFPAY ==
--- NOTE | 2018-04-04 23:54 | PCM.HP.BLA ---
History and Physical Date of Admission: 04/05/18 HISTORY OF PRESENT ILLNESS The patient is a 23 year old female who was admitted because of increasing pain and redness and swelling in her right lateral chest wall/lateral breast area. A few days ago she went to the ED and had I&D of her right lateral chest wall abscess. However, despite drainage and being on an antibiotic, she still developed worsening symptomatology and came back to the ED and was admitted. She had a CT done which showed cellulitis and no definitive fluid collection and right axillary lymphadenopathy. She was started on Vancomycin and Zosyn. The drainage was cultured and came back with MRSA. She went to the OR on 02/22/18 where she underwent surgical preparation right lateral chest wall/lateral breast with incision and drainage and excisional debridement abscess (48 cm2). Postop wound care was begun with the VAC. After discharge, she was followed up at the Wound Center. The wound showed good granulation tissue with the VAC. However, she had persistent pain in her wound and operative debridement with complex secondary wound closure was recommended. Patient voiced understanding and wished to proceed. PAST MEDICAL HISTORY Depression. Right lateral chest wall abscess. MRSA. PAST SURGICAL HISTORY appendectomy. Tubal ligation. back surgery for scoliosis. Surgical preparation right lateral chest wall/lateral breast with incision and drainage and excisional debridement abscess (48 cm2) - 02/22/18 MEDICATIONS Bupropion. Lexapro. Ativan. Percocet. Doxycycline. ALLERGIES None. SOCIAL HISTORY Smoking Status: Never smoker. Patient drinks alcohol occasionally. FAMILY HISTORY Maternal - No pertinent history. Paternal - No pertinent history. REVIEW OF SYSTEMS Constitutional: Reports: Chills, Fever. Denies: Weight Change. HEENT: Denies: Head Aches, Sinus Congestion, Sinus Drainage. Cardiovascular: Denies: Chest Pain, Palpitations. Respiratory: Denies: Cough, Shortness of breath at rest, Sputum production. Gastrointestinal: Denies: Abdominal Pain, Nausea, Vomiting. Genitourinary: Denies: Dysuria. Musculoskeletal: Denies: Joint Pain, Joint Tenderness. Skin: Has abscess right lateral chest wall/lateral breast. Neurological: Denies: Numbness, Tingling, Focal weakness. Psychiatric: Denies: Anxiety, Depression, Homicidal Ideations, Suicidal Ideations. Hematologic/ Lymphatic: Denies: Easy Bruising, Easy Bleeding PHYSICAL EXAMINATION General: Alert, Oriented x3. HEENT: PERRLA, EOMI, throat is clear. Neck: Supple and nontender. No cervical adenopathy. There is a nonhealing MRSA ulcer right lateral chest wall. Tenderness to palpation. Measures 2 x 8.5 x 2 cm. Some granulation tissue seen. No further evidence of infection. Lungs: Clear to auscultation. Cardiovascular: Regular rate and rhythm. Abdomen: Soft, Non-distended. Extremities: No clubbing, cyanosis or edema. Musculoskeletal: No Tenderness to Palpation of Joints or Extremities Neurological: Cranial nerves II-XII grossly intact Psych/Mental Status: Normal Affect, Appropriate ASSESSMENT 1. Nonhealing painful ulcer right lateral chest wall. 2. MRSA. 3. s/p surgical preparation right lateral chest wall/lateral breast with incision and drainage and excisional debridement abscess (48 cm2). PLAN With continued pain in her nonhealing MRSA ulcer right lateral chest wall, it was recommended to the patient to proceed with further operative debridement with complex secondary wound closure. Will send tissue to Pathology for analysis and to Microbiology for culture. A positive culture may necessitate antibiotic modification. She is currently on Doxycycline. At the time of surgery, a drain will be placed to minimize seroma formation. I will also use Sawyer absorbable hemostat intra-operatively to minimize seroma. Will need a compression TABITHA wrap postop. Patient was informed of the risks and complications of the procedure including alternatives to surgery. These were discussed with the patient personally. Patient voices understanding and wishes to proceed.
[2018-04-05 09:51] VITALS: BP 123/84; PULSE 79; RESP 16; TEMP 36.6; O2SAT 98; BMI 36.6
[2018-04-05 10:12] LABS: Internal QC Validated? YES +Cl - CLEAR BKGD; Pregnancy, Urine Negative Negative
[2018-04-05] MEDS: Vancomycin IV 1,000 MG/200 ML BAG 200 MG IV (10:15)
--- NOTE | 2018-04-05 11:38 | PCM.IMDPSTOP ---
Immediate Post-Op Note Date of Procedure: 04/05/18 Primary Surgeon/Physician: Benjamin Garibay maintenance shop welder: Nadya Murphy. Pre-Operative Diagnosis: 1. Nonhealing painful ulcer right lateral chest wall. 2. MRSA. Post-Operative Diagnosis: Same. Surgery/Procedure Performed:: Surgical preparation right lateral chest wall with excision nonhealing painful MRSA ulcer and 10 cm complex secondary wound closure. Description of Surgical Findings:: The patient is a 23 year old female who was admitted because of increasing pain and redness and swelling in her right lateral chest wall/lateral breast area. A few days ago she went to the ED and had I&D of her right lateral chest wall abscess. However, despite drainage and being on an antibiotic, she still developed worsening symptomatology and came back to the ED and was admitted. She had a CT done which showed cellulitis and no definitive fluid collection and right axillary lymphadenopathy. She was started on Vancomycin and Zosyn. The drainage was cultured and came back with MRSA. She went to the OR on 02/22/18 where she underwent surgical preparation right lateral chest wall/lateral breast with incision and drainage and excisional debridement abscess (48 cm2). Postop wound care was begun with the VAC. After discharge, she was followed up at the Wound Center. The wound showed good granulation tissue with the VAC. However, she had persistent pain in her wound and operative debridement with complex secondary wound closure was recommended. Patient voiced understanding and wished to proceed. Today the patient underwent surgical preparation right lateral chest wall with excision nonhealing painful MRSA ulcer and 10 cm complex secondary wound closure. I used Sawyer absorbable hemostat. Reference Number - [id number]. Lot Number - [id number]. Expiration - February 03, 2023. Estimated Blood Loss: 50 ml. Specimen's removed: 1. Nonhealing MRSA ulcer right lateral chest wall to Pathology and Microbiology. 2. MRSA Wound DNA by PCR. Drains: Cooper. Type of Anesthesia:: General - Admit VTE Documentation VTE Present on Admission: No VTE Mechan Device Prophylaxis: SCD's VTE Pharm Prophylaxis ordered?: No
--- NOTE | 2018-04-05 11:50 | PCM.DC ---
You will use the following diet at home:: No restrictions Discharge Activity: May not drive while taking narcotic pain medications., May Not Shower - until the drain is removed in the office., - - no heavy lifting. keep head elevated. May shower in (days): 10 - may shower after the drain is removed in the office. May resume sexual activity in: No Restrictions Weight Bearing Status: Weight bearing as tolerated Lifting Restrictions: 20 lbs. Keep extremity elevated above heart level: - - elevate head. Call your doctor if your incision/area has: Continuous Slow Oozing, Sudden Increased Bleeding, Increased Pain/ Swelling, Increased Redness, Foul Smelling Discharge, Swelling at the incision site Call your doctor if you observe: Fever of 101 or Higher, Coldness, Increased Pain, Shortness of breath, Chest pain, Calf discomfort, Uncontrolled pain Suture Line Care: - - dry dressing daily after operative dressing removed in two days. Change Dressing in (Days):: 2 - change operative dressing in two days and then dry dressing daily. Cleanse incision/area with: - - may get incision wet in the shower after the drain is removed in the office. Drain: Suction - keren drain to bulb suction. empty and record output daily. Allergies/Adverse Reactions: Allergies No Known Allergies Allergy (Verified 04/04/18 14:06) Medications to take at Discharge bupropion HCl XL 300 mg 24 hr tablet, extended release 300 mg PO DAILY #30 tab 08/19/17 Escitalopram Oxalate [Lexapro] 5 mg PO DAILY 04/04/18 Lorazepam [Ativan] 0.5 mg PO DAILY 04/04/18 Diazepam [Valium] 5 mg PO TID PRN PRN #20 tab 04/05/18 Doxycycline 100 mg PO BID #28 cap 04/05/18 Oxycodone HCl/Acetaminophen [Percocet 5-325] 1 - 2 tab PO 4X/DAY PRN PRN 7 Days #50 tab 04/05/18 The following prescriptions were given: Diazepam [Valium] 5 mg PO TID PRN PRN #20 tab PRN Reason: Spasms Oxycodone HCl/Acetaminophen [Percocet 5-325] 1 - 2 tab PO 4X/DAY PRN PRN 7 Days #50 tab PRN Reason: Pain Doxycycline 100 mg PO BID #28 cap Primary Care Physician: Dario Poe DO [Primary Care Provider] - Test Results: Test results from this visit will be discussed in further detail at your follow-up appointment, if applicable. Please Follow Up With: Benjamin Garibay MD When: one week. call [phone] for appt. Proposed Discharge Date: 04/05/18
--- NOTE | 2018-04-05 11:55 | UL_PTH ---
PATIENT: SANTIAGO SALGUERO LOC: [facility] [place] U#:[id number] AGE/SX: 23/F ROOM: RE04/05/[address]: Dr. Benjamin Garibay MD : [id number] BED: DIS: 04/05/2018 SPEC #: [id number] RECD: 04/05/18 13:49 STATUS: LANA XENIA #: [id number] SUGEY: 04/05/18 11:[address]: Benjamin Garibay DEPT: SURGICAL PATHOLOGY RECD BY: Mitchell Chowdhury ENTERED: 04/05/18 13:49 SP TYPE: ULCER OTHR DR: Dr. Dario Poe, Tissues: ULCER Procedures: Special Stain Group I Surgery Specimen Level IV AFB Stain (control) GMS Stain (control) HEADER OPERATION: Excisional debridement lateral chest wall ulcer PRE-OP DIAGNOSIS: Nonhealing ulcer right lateral chest wall, MRSA, status post surgical preparation right lateral chest wall/lateral breast with incision and drainage, excisional debridement abscess TISSUE SUBMITTED: Right lateral chest MRSA ulcer MICROSCOPIC DIAGNOSIS Skin and soft tissue of right lateral chest ulcer, excision: Ulceration with associated acute and chronic inflammation and granulation. Negative for acid-fast bacilli and fungal organisms. AM:mychal 04/07/18 COMMENT AFB and GMS stains with matched controls were used in the evaluation of this case. MICROSCOPIC DESCRIPTION Slides are reviewed. GROSS DESCRIPTION Received in fixative is one container labeled with the patient's name and designated right lateral chest ulcer. The specimen consists of an ellipse of pink-portillo skin with attached fatty tissue measuring 6.5 x 2.8 cm and a depth of excision measuring 3.2 cm. The cutaneous surface contains an ulcerated/open area measuring 3.5 x 0.5 x 1 cm. Serial sections do not reveal mass lesions. Wad Impregnator sections are submitted in three cassettes. / AM:mychal 04/05/18 TC:2 CPT: 52301, 98984 x2
[2018-04-05 12:09] VITALS: BP 113/70; BP 123/84; PULSE 77; RESP 18; TEMP 37.5; O2SAT 97
[2018-04-05 12:15] VITALS: BP 102/69; BP 123/84; PULSE 67; RESP 18; O2SAT 98
[2018-04-05 12:30] VITALS: BP 123/84; BP 97/73; PULSE 70; RESP 16; O2SAT 99
[2018-04-05 12:45] VITALS: BP 108/80; BP 123/84; PULSE 71; RESP 16; TEMP 36.8; O2SAT 98
[2018-04-05] MEDS: oxyCODONE 5 MG Tablet 10 MG PO (13:05)
[2018-04-05 14:14] LABS: M R Staph aureus DNA By PCR POSITIVE (Negative); Probe Check PASS; Staph aureus DNA By PCR POSITIVE (Negative)
[2018-04-05 14:53] VITALS: BP 121/58; BP 123/84; PULSE 65; RESP 14; TEMP 36.2; O2SAT 96
--- NOTE | 2018-04-05 19:22 | PCM.OPRPT ---
Report of Operation Date of Procedure: 04/05/18 Pre-Operative Diagnosis: 1. Nonhealing painful ulcer right lateral chest wall. 2. MRSA. Post-Operative Diagnosis: Same. Surgery/Procedure Performed:: Surgical preparation right lateral chest wall with excision nonhealing painful MRSA ulcer and 10 cm complex secondary wound closure. Description of Surgical Findings:: The patient is a 23 year old female who was admitted because of increasing pain and redness and swelling in her right lateral chest wall/lateral breast area. A few days ago she went to the ED and had I&D of her right lateral chest wall abscess. However, despite drainage and being on an antibiotic, she still developed worsening symptomatology and came back to the ED and was admitted. She had a CT done which showed cellulitis and no definitive fluid collection and right axillary lymphadenopathy. She was started on Vancomycin and Zosyn. The drainage was cultured and came back with MRSA. She went to the OR on 02/22/18 where she underwent surgical preparation right lateral chest wall/lateral breast with incision and drainage and excisional debridement abscess (48 cm2). Postop wound care was begun with the VAC. After discharge, she was [facility] up [facility]. The wound showed good granulation tissue with the VAC. However, she had persistent pain in her wound and operative debridement with complex secondary wound closure was recommended. Patient voiced understanding and wished to proceed. Patient was informed of the risks and complications of the procedure including alternatives to surgery. These were discussed with the patient personally. Patient voices understanding and wishes to proceed. I used Sawyer absorbable hemostat. Reference Number - [id number]. Lot Number - [id number]. Expiration - February 03, 2023. chemistry professor: Nadya Murphy. Type of Anesthesia:: General Specimen's removed: 1. Nonhealing MRSA ulcer right lateral chest wall to Pathology and Microbiology. 2. MRSA Wound DNA by PCR. Drains: Cooper. Estimated Blood Loss (mL): 50 ml. Description of Procedure: Patient was taken to OR in supine position and was placed under general anesthesia. The right lateral chest wall was prepped and draped in the usual fashion. SCD's were placed for DVT prophylaxis. Perioperative antibiotics were given intravenously. Using xylocaine with epinephrine, the right lateral chest wall was infiltrated. After waiting 5 minutes for the anesthetic to take effect, I made an elliptical excision around this nonhealing MRSA ulcer. Dissection was carried down through the previous scar tissue down to the chest wall. There was scar tissue that was dissected away from the pectoralis major muscle and the latissimus dorsi muscle. Tissue was sent to Pathology for analysis to rule out carcinoma and to Microbiology for culture. Also MRSA Wound DNA by PCR was also done. The wound was irrigated with saline. Hemostasis was obtained with electrocautery. I placed a size 15 Cooper drain through a separate stab incision inferiorly and secured to the skin with 3-0 Nylon suture. I sprayed Sawyer absorbable hemostat into the wound to minimize seroma formation. I then closed the wound in multiple layers with 3-0 Monocryl figure of eight interrupted sutures for the deeper subcutaneous tissue and fascia. 3-0 Monocryl suture was also used for the deep dermis and subcutaneous tissue. The skin was approximated with 3-0 Monocryl running subcuticular suture. This was then followed by Histoacryl skin tissue adhesive. Kerlix gauze was applied followed by compression TABITHA wrap. Patient tolerated the procedure well and was sent to PACU in satisfactory condition. Patient will be sent home on antibiotics and pain medication and Valium for spasm. Patient will followup in a week for a wound check and for discussion of the pathology report and the microbiology report. She was on Doxycycline preop and will continue that until the culture is available. A positive culture may necessitate antibiotic modification. I will remove the drain in 10-14 days. Grafts/Implants Used: None. - Complications None. - Admit VTE Documentation VTE Present on Admission: No VTE Mechan Device Prophylaxis: SCD's VTE Pharm Prophylaxis ordered?: No Code Visit Surgery Charges CPT - 65547 ICD-10 - L98.492, L02.213, A49.02 66972 L98.492, L02.213, A49.02
== END 2018-04-05 15:03 | disposition home or self-care (01) ==
LOC: SDC 09:30 → AC 09:32
PROVIDERS: Anesthesiology; Family Provider Student in an Organized Health Care Education/Training Program; PCP Student in an Organized Health Care Education/Training Program; Visit Provider Surgery
PROC: (CPT 13160; principal; 2018-04-05 11:40)
DX: L98.492 Non-pressure chronic ulcer of skin of other sites with fat layer exposed (principal); L02.213 Cutaneous abscess of chest wall; B95.62 Methicillin resistant Staphylococcus aureus infection as the cause of diseases classified elsewhere; F32.9 Major depressive disorder, single episode, unspecified; Z79.899 Other long term (current) drug therapy
CPT/HCPCS: 00400; 13160; 15002; 81025; 87070; 87075; 87077; 87102; 87186; 87205; 87206; 87640; 88304; 88305; 88312; J7120

== ENCOUNTER 2018-04-15 19:25 | Inpatient (IN) | payer MEDICAID, SELFPAY ==
[2018-04-15 19:38] VITALS: BMI 35.8
[2018-04-15 19:43] VITALS: BMI 35.8
[2018-04-15 20:07] VITALS: BP 114/71; PULSE 86; RESP 16; TEMP 36.6; O2SAT 100
--- NOTE | 2018-04-15 20:15 | PCM.PN.BLA ---
Progress Note DATE OF PREVIOUS HISTORY AND PHYSICAL - APRIL 04, 2018. DATE OF PREVIOUS SURGERY - March. On April 05, 2018, patient underwent surgical preparation right lateral chest wall with excision nonhealing painful MRSA ulcer and 10 cm complex secondary wound closure. Initial culture screen showed MRSA and she was discharged on Doxycycline. Further culture result showed Pseudomonas. Ciprofloxacin was added. Today she came to the office complaining of her incision opening up with drainage. On exam, the central portion of the incision opened up. The wound measured 6 x 1.5 cm. There was surrounding redness and increased pain. Patient denied any fever. She did complain of feeling rundown and fatigued. With the complexity of the wound and the nature of the organisms present in the wound, the patient has failed outpatient antibiotic therapy. It was recommended to the patient to be admitted to the hospital for more aggressive wound care with daily Silver dressing changes. Also will start IV antibiotics. Will anticipate the need for computer terminal operator IV antibiotics and a PICC line will be placed. Depending on how well the wound care responds to the Silver dressing changes, further operative debridement may be necessary in preparation for the use of the VAC for wound care. Patient was informed of the risks and complications of the procedure including alternatives to surgery. These were discussed with the patient personally. Patient voices understanding and wishes to proceed with the current plan of admission followed by aggressive wound care with Silver dressing changes and IV antibiotic therapy. She is aware that further operative intervention may be necessary. Will start IV Vancomycin, Zosyn, and Levaquin.
[2018-04-15] MEDS: oxyCODONE 5 MG Tablet 10 MG PO (21:47)
[2018-04-15] MEDS: Lactated Ringers 1,000 ML 60 ML IV (22:13)
[2018-04-15] MEDS: Piperacil/Tazobactam 3.375 GM/50 ML ML IV (22:13)
[2018-04-15] MEDS: diazePAM 5 MG Tablet PO (23:03)
[2018-04-15 23:06] VITALS: BP 120/84; PULSE 87; RESP 16; TEMP 36.7; O2SAT 98
--- NOTE | 2018-04-16 03:30 | NURSING ---
Per patient MD did dressing change to right chest in office prior to the arrival to the hospital. DONALD drain was also discontinued in the office as well. MD placed orders to begin dressing changes beginning 9/8 in am. Patient notified.
[2018-04-16] MEDS: oxyCODONE 5 MG Tablet 10 MG PO ×4 (04:21→21:36)
[2018-04-16 04:27] VITALS: BP 107/63; PULSE 60; RESP 16; TEMP 36.4; O2SAT 99
[2018-04-16] MEDS: Piperacil/Tazobactam 3.375 GM/50 ML ML IV ×3 (05:55→21:37)
[2018-04-16] MEDS: levoFLOXacin 500 MG Tablet PO (05:55)
--- NOTE | 2018-04-16 05:57 | NURSING ---
access lead notified of order for picc line, will call floor with time to insert
[2018-04-16 07:39] LABS: Erythrocyte Sedimentation Rate 31 mm/hr (0-20)
[2018-04-16 07:45] LABS: Hematocrit 34.5 % (37-47); Hemoglobin 11.1 g/dl (12.0-15.0); Mean Corp Hgb Conc 32.2 g/gl (32-36); Mean Corpuscular Hgb 26.7 pg (27.0-32.0); Mean Corpuscular Volume 82.9 fL (81-99); Mean Platelet Vol. 10.7 fl (6.2-12.0); Platelet Count 251 K/mm3 (150-450); RBC Distribution Width CV 13.6 % (11.6-14.6); RBC Distribution Width SD 40.5 fl (35.1-43.9); Red Blood Count 4.16 M/mm3 (4.2-5.4); Scan Indicated on CBC? Y/N NO; White Blood Count 6.7 K/mm3 (4.4-11.0)
[2018-04-16 07:53] LABS: ALB/GLOB Ratio 0.8 RATIO (0.9-2.4); AST(SGOT) 20 U/L (15-37); Alanine Aminotransfer ALT/SGPT 22 U/L (13-56); Albumin, Serum 3.3 g/dL (3.2-5.0); Alkaline Phosphatase 76 U/L (45-117); Anion Gap 7 (5-15); BUN 9 mg/dL (7-18); BUN/Creat Ratio 10.7 RATIO (10-20); Calcium,Total 8.6 mg/dL (8.5-10.1); Chloride 108 mmol/L (98-107); Creatinine, Serum 0.84 mg/dL (0.55-1.02); EST Glomerular Filtration Rate 87 mL/min (>60); Est Glom Filt Rate - Afr Amer 106 mL/min (>60); Estimated Creatinine Clearance 99.56 ml/min; Globulin 3.9 g/dL (2.2-4.2); Glucose 92 mg/dL (74-106); Potassium 3.5 mmol/L (3.5-5.1); Prealbumin 15.1 mg/dL (20.0-40.0); Protein, Total 7.2 g/dL (6.4-8.2); Sodium Level 141 mmol/L (136-145)
[2018-04-16 08:53] VITALS: BP 132/80; PULSE 76; RESP 18; TEMP 36.5; O2SAT 98
[2018-04-16] MEDS: Escitalopram Oxalate 10 MG Tablet 5 MG PO (08:55)
[2018-04-16] MEDS: buPROPion (XL) 300 MG TABLET.XL PO (08:55)
[2018-04-16] MEDS: proMETHazine 25 MG Tablet PO (08:55)
[2018-04-16] MEDS: LORazepam 0.5 MG Tablet PO (08:55)
[2018-04-16 09:06] VITALS: PULSE 76
--- NOTE | 2018-04-16 09:41 | PCM.RX.CS ---
Consult Pharmacy has been consulted to manage selected antiobiotic: Vancomycin Type of Consult: New start Suspected Infection: Skin/Soft tissue Prior Doses of Antibiotics Received/Current Regimen: Receive 1500mg IV on 04.15.18 @2212. Labs: Sodium 141 mmol/L (136-145) 04/16/18 07:28 Potassium 3.5 mmol/L (3.5-5.1) 04/16/18 07:28 Chloride 108 mmol/L (98-107) H 04/16/18 07:28 Carbon Dioxide 26.0 mmol/L (21.0-32.0) 04/16/18 07:28 Anion Gap 7 (5-15) 04/16/18 07:28 BUN 9 mg/dL (7-18) 04/16/18 07:28 Creatinine 0.84 mg/dL (0.55-1.02) 04/16/18 07:28 Est GFR (MDRD) Af Amer 106 mL/min (>60) 04/16/18 07:28 Est GFR (MDRD) Non-Af 87 mL/min (>60) 04/16/18 07:28 BUN/Creatinine Ratio 10.7 RATIO (10-20) 04/16/18 07:28 Glucose 92 mg/dL (74-106) 04/16/18 07:28 Weight used for dosin.8 kg Estimated Creatinine Clearance: 99 ml/min Goal Trough: 10-15 mcg/mL Pharmacy Plan for Drug Dosing: Renal function reviewed (Cr 0.84, CrCl ~100). Will begin patient on 1500mg IV q12h with vancomycin trough to be drawn before 4th dose (goal 10-15mcg/ml). Pharmacy Service will continue to monitor and adjust dosing as required. Follow-Up Labs: Trough Vancomycin - 04.17.18 @0930 30 min before 1000 dose
--- NOTE | 2018-04-16 12:58 | PCM.PN.SRG ---
Patient Problems: Active and Suspected Problems (Last Updated 04/13/18 @ 13:50 by Tammy Hoyos) Pseudomonas aeruginosa infection (Acute) Subjective: Postop #11 Patient still has pain but is a little more tolerable than at home. PICC line placed today. - Physical Exam General: Alert, Oriented x3 HEENT: PERRLA, EOMI Oral: Moist Mucosa Neck: Supple Abdomen: Soft, Non-Distended Skin: Ulcer/ Wound - right lateral chest wall wound is stable. The Silver dressing is tolerable. Surrounding skin is dry. Redness little better. Dimensions are 6 x 1.5 cm. Neurological: Cranial nerves II-XII grossly intact Psych/Mental Status: Normal Affect, Appropriate Vital Signs Temp Pulse Resp BP Pulse Ox 97.7 F L 76 18 132/80 H 98 04/16/18 08:53 04/16/18 09:06 04/16/18 08:53 04/16/18 08:53 04/16/18 08:53 Oxygen Delivery Method Room Air Weight: 228 lb 13.437 oz Body Mass Index (BMI) 35.8 Intake and Output for Last 24 Hours 04/14/18 04/15/18 04/16/18 23:59 23:59 23:59 Intake Total 2226 / 2226 Balance 2226 / 2226 Laboratory Tests Past 24 Hrs 04/16/18 04/16/18 07:28 07:28 WBC 6.7 RBC 4.16 L Hgb 11.1 L Hct 34.5 L MCV 82.9 MCH 26.7 L MCHC 32.2 RDW 13.6 RDW Differential 40.5 Plt Count 251 MPV 10.7 ESR 31 H Sodium 141 Potassium 3.5 Chloride 108 H Carbon Dioxide 26.0 Anion Gap 7 BUN 9 Creatinine 0.84 Estim Creat Clear Calc 99.56 Est GFR (MDRD) Af Amer 106 Est GFR (MDRD) Non-Af 87 BUN/Creatinine Ratio 10.7 Glucose 92 Calcium 8.6 Total Bilirubin 0.40 AST 20 ALT 22 Alkaline Phosphatase 76 C-React Prot Ext Range 17.90 H Total Protein 7.2 Albumin 3.3 Globulin 3.9 Albumin/Globulin Ratio 0.8 L Prealbumin 15.1 L Medical Necessity - Tobacco Use Smoking Status: Never smoker Tobacco Use: Secondhand Assessment/Plan All Active Problems (Last Updated 04/13/18 @ 13:50 by Tammy Hoyos) Pseudomonas aeruginosa infection (Acute) Open wound of right chest wall with complication (Acute) Cellulitis of right breast (Acute) Cellulitis of chest wall (Acute) Abscess of chest wall (Acute) Cellulitis and abscess of other specified site (Acute) MRSA (methicillin resistant Staphylococcus aureus) infection (Acute) Abscess of right breast (Ruled-out) Acute pyelonephritis (Resolved) 1. Nonhealing painful ulcer right lateral chest wall. 2. MRSA. 3. s/p surgical preparation right lateral chest wall with excision nonhealing painful MRSA ulcer and 10 cm complex secondary wound closure. 4. Pseudomonas infection right lateral chest wall. PICC line placed today. Continue IV Vancomycin, Zosyn, and Levaquin. Pain is a little more tolerated. Still needs IV analgesia. Wound is stable with the Silver dressing changes. Will determine over the next couple of days if the Silver dressing changes can stabilize and heal the wound or if the wound needs operative debridement down to the muscle in preparation for the VAC in order to stabilize and heal the wound. With the Pseudomonas and MRSA, will treat with IV antibiotics for 6 weeks. Prealbumin was 15.1. Encourage nutritional supplementation with protein to help the healing process. After discharge, will followup at [facility].
[2018-04-16] MEDS: HYDROmorphone 1 MG/ML Syringe IV ×3 (13:51→23:13)
[2018-04-16 13:55] VITALS: BP 111/64; PULSE 70; RESP 18; TEMP 36.6; O2SAT 97
[2018-04-16] MEDS: diazePAM 5 MG Tablet PO (16:48)
--- NOTE | 2018-04-16 17:04 | CASEMGMT ---
CM INITIAL ASSESSMENT: Home: Patient states she lives in a trailer with her fiance and three children. There are a few steps into the home, with a railing. HHS/Aides: Previously used [facility] for wound vac changes. Patient states she has not yet returned this wound vac. She was pleased with the care she received from [facility] and would be agreeable to using them again if recommended. DME: Denies Home Oxygen: Denies Pharmacy: [facility] in [place] Advance Directives: Denies having. Patient did request information. Advance Directives packet was provided to the patient. I reviewed how to complete. Upon asking the patient if she would like a visit from social work to assist with completion, patient declined. I encouraged patient to let her nurse know if she has any questions and they can reach out to case management. PCP: Dario Poe DC Plan: TBD. Patient may need IV antbx and wound vac changes, upon discharge. CM will continue to follow for safe and effective discharge planning.
[2018-04-16 19:45] VITALS: BP 120/67; PULSE 79; RESP 16; TEMP 36.8; O2SAT 99
[2018-04-16] MEDS: Lactated Ringers 1,000 ML 60 ML IV (21:29)
[2018-04-16 23:00] VITALS: PULSE 79; RESP 16; O2SAT 99
[2018-04-17] VITALS (7 sets, daily range): BP systolic 115–130; BP diastolic 68–84; PULSE 68–85; RESP 18; TEMP 36.6–37; O2SAT 97–100
[2018-04-17] MEDS: oxyCODONE 5 MG Tablet 10 MG PO ×5 (01:39→23:56)
[2018-04-17] MEDS: diazePAM 5 MG Tablet PO ×2 (01:39→18:58)
[2018-04-17] MEDS: HYDROmorphone 1 MG/ML Syringe IV ×5 (02:24→21:09)
[2018-04-17] MEDS: levoFLOXacin 500 MG Tablet PO (05:29)
[2018-04-17] MEDS: Piperacil/Tazobactam 3.375 GM/50 ML ML IV ×3 (05:29→21:30)
[2018-04-17] MEDS: Ondansetron 4 MG/2 ML Vial IV (07:32)
[2018-04-17] MEDS: Escitalopram Oxalate 10 MG Tablet 5 MG PO (09:45)
[2018-04-17] MEDS: LORazepam 0.5 MG Tablet PO (09:45)
[2018-04-17] MEDS: buPROPion (XL) 300 MG TABLET.XL PO (09:45)
[2018-04-17 10:14] LABS: Vancomycin, Trough Level 13.1 ug/mL (5.0-15.0)
[2018-04-17 11:38] LABS: Hematocrit 37.2 % (37-47); Hemoglobin 11.3 g/dl (12.0-15.0); Mean Corp Hgb Conc 30.4 g/gl (32-36); Mean Corpuscular Hgb 25.7 pg (27.0-32.0); Mean Corpuscular Volume 84.5 fL (81-99); Mean Platelet Vol. 10.7 fl (6.2-12.0); Platelet Count 264 K/mm3 (150-450); RBC Distribution Width CV 13.8 % (11.6-14.6); RBC Distribution Width SD 42.3 fl (35.1-43.9); White Blood Count 6.3 K/mm3 (4.4-11.0)
[2018-04-17 11:42] LABS: Scan Indicated on CBC? Y/N NO
--- NOTE | 2018-04-17 11:53 | PCM.RX.CS ---
Consult Pharmacy has been consulted to manage selected antiobiotic: Vancomycin Type of Consult: Follow-up Suspected Infection: Skin/Soft tissue Prior Doses of Antibiotics Received/Current Regimen: Currently on 1500mg iv q12h. Labs: Sodium 141 mmol/L (136-145) 04/16/18 07:28 Potassium 3.5 mmol/L (3.5-5.1) 04/16/18 07:28 Chloride 108 mmol/L (98-107) H 04/16/18 07:28 Carbon Dioxide 26.0 mmol/L (21.0-32.0) 04/16/18 07:28 Anion Gap 7 (5-15) 04/16/18 07:28 BUN 9 mg/dL (7-18) 04/16/18 07:28 Creatinine 0.84 mg/dL (0.55-1.02) 04/16/18 07:28 Est GFR (MDRD) Af Amer 106 mL/min (>60) 04/16/18 07:28 Est GFR (MDRD) Non-Af 87 mL/min (>60) 04/16/18 07:28 BUN/Creatinine Ratio 10.7 RATIO (10-20) 04/16/18 07:28 Glucose 92 mg/dL (74-106) 04/16/18 07:28 Vancomycin Trough 13.1 ug/mL (5.0-15.0) 04/17/18 09:35 Microbiology: Microbiology 04/16/18 06:55 Wound - Chest Gram Stain - Final 04/16/18 06:55 Wound - Chest Wound Culture - Preliminary GNR Poss Pseudomonas sp Gram negative anne-marie Weight used for dosin.8 kg Estimated Creatinine Clearance: 100 ml/min Goal Trough: 10-15 mcg/mL Pharmacy Plan for Drug Dosing: Patient on 1500mg iv q12. Vancomycin trough this AM 9.9.18 before 4th dose was 13.1 (goal 10-15mcg/ml). Renal function Cr 0.8, CrCl ~100. Will continue with same regimen and get repeat vancomycin trough in 4 days. Pharmacy Service will continue to monitor and adjust dosing as required. Follow-Up Labs: Trough Vancomycin - 9.13.18 @0930 before dose at 1000
[2018-04-17 11:57] LABS: Anion Gap 8 (5-15); BUN 10 mg/dL (7-18); Chloride 105 mmol/L (98-107); Creatinine, Serum 0.91 mg/dL (0.55-1.02); EST Glomerular Filtration Rate 80 mL/min (>60); Est Glom Filt Rate - Afr Amer 97 mL/min (>60); Glucose 89 mg/dL (74-106); Sodium Level 141 mmol/L (136-145)
[2018-04-17] MEDS: Lactated Ringers 1,000 ML 60 ML IV (14:22)
--- NOTE | 2018-04-17 17:37 | PCM.PN.SRG ---
Subjective: Postop #12 Complains of persistent right lateral chest wall wound pain. - Physical Exam General: Alert, Oriented x3 HEENT: PERRLA, EOMI Oral: Moist Mucosa Neck: Supple Abdomen: Soft, Non-Distended Skin: Ulcer/ Wound - right lateral chest wall wound enlarging indicative of continued Pseudomonas infection. Neurological: Cranial nerves II-XII grossly intact Psych/Mental Status: Normal Affect, Appropriate Vital Signs Temp Pulse Resp BP Pulse Ox 98.3 F 85 18 120/77 97 04/17/18 14:16 04/17/18 14:16 04/17/18 14:16 04/17/18 14:16 04/17/18 14:16 Oxygen Delivery Method Room Air Weight: 228 lb 13.437 oz Body Mass Index (BMI) 35.8 Intake and Output for Last 24 Hours 04/15/18 04/16/18 04/17/18 23:59 23:59 23:59 Intake Total 2226 / 2226 4671 / 4671 Output Total 3300 / 3300 Balance 2226 / 2226 1371 / 1371 Microbiology Past 72 Hours 04/16/18 06:55 Gram Stain - Final Wound - Chest Wound Culture - Preliminary GNR Poss Pseudomonas sp Gram negative anne-marie Laboratory Tests Past 24 Hrs 04/17/18 04/17/18 04/17/18 09:35 09:35 09:35 WBC 6.3 RBC 4.40 Hgb 11.3 L Hct 37.2 MCV 84.5 MCH 25.7 L MCHC 30.4 L RDW 13.8 RDW Differential 42.3 Plt Count 264 MPV 10.7 Sodium 141 Potassium 4.0 Chloride 105 Carbon Dioxide 28.0 Anion Gap 8 BUN 10 Creatinine 0.91 Estim Creat Clear Calc 91.90 Est GFR (MDRD) Af Amer 97 Est GFR (MDRD) Non-Af 80 BUN/Creatinine Ratio 11.0 Glucose 89 Calcium 9.0 Vancomycin Trough 13.1 Medical Necessity - Tobacco Use Smoking Status: Never smoker Tobacco Use: Secondhand Assessment/Plan All Active Problems (Last Updated 04/13/18 @ 13:50 by Tammy Hoyos) Pseudomonas aeruginosa infection (Acute) Open wound of right chest wall with complication (Acute) Cellulitis of right breast (Acute) Cellulitis of chest wall (Acute) Abscess of chest wall (Acute) Cellulitis and abscess of other specified site (Acute) MRSA (methicillin resistant Staphylococcus aureus) infection (Acute) Abscess of right breast (Ruled-out) Acute pyelonephritis (Resolved) 1. Nonhealing painful ulcer right lateral chest wall. 2. MRSA. 3. s/p surgical preparation right lateral chest wall with excision nonhealing painful MRSA ulcer and 10 cm complex secondary wound closure. 4. Pseudomonas infection right lateral chest wall. PICC line in place. Continue IV Vancomycin, Zosyn, and Levaquin. Still needs IV analgesia for pain control. Wound is enlarging indicative of continued tissue damage from Pseudomonas. She will need operative debridement to clean out the wound and start wound care with the VAC after surgery. Will proceed with the surgery tomorrow. With the Pseudomonas and MRSA, will treat with IV antibiotics for 6 weeks. Prealbumin was 15.1. Encourage nutritional supplementation with protein to help the healing process. After discharge, will followup at [facility].
[2018-04-17] MEDS: 0.9% NaCl IVPB Med Flush (250 mL) 15 ML IV (21:34)
[2018-04-18] VITALS (10 sets, daily range): BP systolic 100–119; BP diastolic 60–84; PULSE 66–80; RESP 12–16; TEMP 36.6–37.1; O2SAT 96–100; BMI 35.8
[2018-04-18] MEDS: HYDROmorphone 1 MG/ML Syringe IV ×6 (03:44→21:08)
[2018-04-18] MEDS: Ondansetron 4 MG/2 ML Vial IV (03:53)
[2018-04-18] MEDS: proMETHazine 25 MG Tablet PO (06:04)
[2018-04-18] MEDS: levoFLOXacin 500 MG Tablet PO (06:04)
[2018-04-18] MEDS: Piperacil/Tazobactam 3.375 GM/50 ML ML IV ×3 (06:04→21:09)
[2018-04-18] MEDS: oxyCODONE 5 MG Tablet 10 MG PO ×3 (06:05→23:41)
--- NOTE | 2018-04-18 07:30 | ABS_PTH ---
PATIENT: SANTIAGO SALGUERO LOC: MS2 U#:[id number] AGE/SX: 23/F ROOM: [facility] RE04/15/[address]: Dr. Benjamin Garibay MD : 1995 BED: 1 DIS: 04/20/2018 SPEC #: [id number] RECD: 04/18/18 14:50 STATUS: LANA REQ #: [id number] SUGEY: 04/18/18 07:[address]: Benjamin Garibay DEPT: SURGICAL PATHOLOGY RECD BY: Blaine Castro ENTERED: 04/19/18 04:34 SP TYPE: Abscess OTHR DR: Dr. Dario Poe DO Tissues: Chest wall, NOS Procedures: Surgery Specimen Level III HEADER OPERATION: Surgical preparation right lateral chest wall with incision PRE-OP DIAGNOSIS: Pseudomonas abscess right lateral chest wall TISSUE SUBMITTED: Pseudomonas abscess right lateral chest wall MICROSCOPIC DIAGNOSIS Pseudomonas abscess right lateral chest wall: Fragments of fibroadipose and fibroconnective tissue with acute and chronic inflammation and abscess formation. JUVE:mychal 04/19/18 COMMENT Please make reference to previous specimen ([id number]), right lateral chest wall/lateral breast abscess with similar diagnosis and special stains for acid fast bacilli and fungi are negative for organisms; matched controls are appropriate. MICROSCOPIC DESCRIPTION Slides are reviewed. GROSS DESCRIPTION Received in fixative is one container labeled with the patient's name and designated pseudomonas abscess right lateral chest wall. The specimen consists of multiple irregular fragments of light portillo soft tissue that in aggregate measure 4 x 4 x 1.5 cm. No mass lesion is identified. [employer] tissue is submitted in two cassettes. / JUVE:mychal 04/18/18 TC:2 CPT: 24828
--- NOTE | 2018-04-18 09:12 | NURSING ---
wound photo: right lateral chest
[2018-04-18] MEDS: 0.9% NaCl Peripheral Flush Adult/Peds IV (12:06)
[2018-04-18] MEDS: Lactated Ringers 1,000 ML 60 ML IV ×2 (12:09→18:08)
--- NOTE | 2018-04-18 12:26 | NURSING ---
report called to Marie in [facility].
--- NOTE | 2018-04-18 13:32 | PCA ---
pt off floor
--- NOTE | 2018-04-18 14:15 | PCM.IMDPSTOP ---
Immediate Post-Op Note Date of Procedure: 04/18/18 Primary Surgeon/Physician: Benjamin Garibay student affairs vice president: None Pre-Operative Diagnosis: 1. Pseudomonas abscess right lateral chest wall. 2. MRSA. 3. s/p surgical preparation right lateral chest wall with excision nonhealing painful MRSA ulcer and 10 cm complex secondary wound closure. Post-Operative Diagnosis: Same. Surgery/Procedure Performed:: Surgical preparation right lateral chest wall with incision and drainage and excisional debridement Pseudomonas abscess (40 cm2). Description of Surgical Findings:: On April 05, 2018, patient underwent surgical preparation right lateral chest wall with excision nonhealing painful MRSA ulcer and 10 cm complex secondary wound closure. Initial culture screen showed MRSA and she was discharged on Doxycycline. Further culture result showed Pseudomonas. Ciprofloxacin was added. Today she came to the office complaining of her incision opening up with drainage. On exam, the central portion of the incision opened up. The wound measured 6 x 1.5 cm. There was surrounding redness and increased pain. Patient denied any fever. She did complain of feeling rundown and fatigued. With the complexity of the wound and the nature of the organisms present in the wound, the patient has failed outpatient antibiotic therapy. It was recommended to the patient to be admitted to the hospital for more aggressive wound care with daily Silver dressing changes. Also will start IV antibiotics with Vancomycin, Zosyn, and Levaquin. A PICC line was placed. The wound has increased in size with the daily Silver dressing changes indicative of Pseudomonas tissue damage. Recommend to proceed with operative intervention to stabilize the wound. Will start wound care after surgery with the VAC. Today the patient underwent surgical preparation right lateral chest wall with incision and drainage and excisional debridement Pseudomonas abscess (40 cm2). Size of defect right lateral chest wall - 10 x 4 x 5 cm. Estimated Blood Loss: 50 ml. Specimen's removed: 1. Pseudomonas abscess right lateral chest wall to Pathology and Microbiology. 2. MRSA Wound DNA by PCR. Drains: None. Type of Anesthesia:: General - Admit VTE Documentation VTE Present on Admission: No VTE Mechan Device Prophylaxis: SCD's VTE Pharm Prophylaxis ordered?: No
--- NOTE | 2018-04-18 15:06 | PCA ---
PT OFF FLOOR
[2018-04-18] MEDS: Escitalopram Oxalate 10 MG Tablet 5 MG PO (16:21)
[2018-04-18] MEDS: buPROPion (XL) 300 MG TABLET.XL PO (16:21)
[2018-04-18] MEDS: diazePAM 5 MG Tablet PO ×2 (16:22→23:41)
[2018-04-18 16:33] LABS: M R Staph aureus DNA By PCR Negative (Negative); Probe Check PASS; Specimen Processing Control PASS; Staph aureus DNA By PCR NEGATIVE (Negative)
[2018-04-19] MEDS: 0.9% NaCl IVPB Med Flush (250 mL) 15 ML IV (00:08)
--- NOTE | 2018-04-19 01:25 | NURSING ---
Pt informed staff that she has a wound vac at home. Pt stated she will get her fiance to bring it into the hospital in the morning.
[2018-04-19] MEDS: HYDROmorphone 1 MG/ML Syringe IV ×6 (02:03→22:23)
[2018-04-19 02:05] VITALS: BP 119/57; PULSE 93; RESP 18; TEMP 36.8; O2SAT 98
[2018-04-19] MEDS: oxyCODONE 5 MG Tablet 10 MG PO ×4 (04:08→19:24)
[2018-04-19] MEDS: 0.9% NaCl Peripheral Flush Adult/Peds IV ×3 (04:08→12:25)
[2018-04-19 04:29] LABS: Hematocrit 32.8 % (37-47); Mean Corp Hgb Conc 30.5 g/gl (32-36); Mean Corpuscular Volume 85.2 fL (81-99); Mean Platelet Vol. 10.7 fl (6.2-12.0); Platelet Count 201 K/mm3 (150-450); RBC Distribution Width CV 13.8 % (11.6-14.6); RBC Distribution Width SD 42.8 fl (35.1-43.9); Red Blood Count 3.85 M/mm3 (4.2-5.4); White Blood Count 6.1 K/mm3 (4.4-11.0)
[2018-04-19 04:33] LABS: Scan Indicated on CBC? Y/N NO
[2018-04-19 04:47] LABS: Anion Gap 10 (5-15); BUN 13 mg/dL (7-18); BUN/Creat Ratio 14.7 RATIO (10-20); Calcium,Total 8.2 mg/dL (8.5-10.1); Chloride 105 mmol/L (98-107); Creatinine, Serum 0.88 mg/dL (0.55-1.02); EST Glomerular Filtration Rate 83 mL/min (>60); Est Glom Filt Rate - Afr Amer 100 mL/min (>60); Estimated Creatinine Clearance 95.03 ml/min; Glucose 107 mg/dL (74-106); Potassium 3.8 mmol/L (3.5-5.1); Sodium Level 144 mmol/L (136-145)
[2018-04-19] MEDS: levoFLOXacin 500 MG Tablet PO (05:33)
[2018-04-19] MEDS: diazePAM 5 MG Tablet PO ×3 (05:33→17:14)
[2018-04-19] MEDS: Piperacil/Tazobactam 3.375 GM/50 ML ML IV (05:34)
[2018-04-19 08:20] VITALS: BP 131/65; PULSE 89; RESP 16; TEMP 36.8; O2SAT 100
--- NOTE | 2018-04-19 09:13 | OP.PCM_ITS ---
Report of Operation Date of Procedure: 04/18/18 Pre-Operative Diagnosis: 1. Pseudomonas abscess right lateral chest wall. 2. MRSA. 3. s/p surgical preparation right lateral chest wall with excision nonhealing painful MRSA ulcer and 10 cm complex secondary wound closure. Post-Operative Diagnosis: Same. Surgery/Procedure Performed:: Surgical preparation right lateral chest wall with incision and drainage and excisional debridement Pseudomonas abscess (40 cm2). Description of Surgical Findings:: On April 05, 2018, patient underwent surgical preparation right lateral chest wall with excision nonhealing painful MRSA ulcer and 10 cm complex secondary wound closure. Initial culture screen showed MRSA and she was discharged on Doxycycline. Further culture result showed Pseudomonas. Ciprofloxacin was added. Today she came to the office complaining of her incision opening up with drainage. On exam, the central portion of the incision opened up. The wound measured 6 x 1.5 cm. There was surrounding redness and increased pain. Patient denied any fever. She did complain of feeling rundown and fatigued. With the complexity of the wound and the nature of the organisms present in the wound, the patient has failed outpatient antibiotic therapy. It was recommended to the patient to be admitted to the hospital for more aggressive wound care with daily Silver dressing changes. Also will start IV antibiotics with Vancomycin, Zosyn, and Levaquin. A PICC line was placed. The wound has increased in size with the daily Silver dressing changes indicative of Pseudomonas tissue damage. Recommend to proceed with operative intervention to stabilize the wound. Will start wound care after surgery with the VAC. Patient was informed of the risks and complications of the procedure including alternatives to surgery. These were discussed with the patient personally. Patient voices understanding and wishes to proceed. Size of defect right lateral chest wall - 10 x 4 x 5 cm. cistern room working supervisor: None Type of Anesthesia:: General Specimen's removed: 1. Pseudomonas abscess right lateral chest wall to Pathology and Microbiology. 2. MRSA Wound DNA by PCR. Drains: None. Estimated Blood Loss (mL): 50 ml. Description of Procedure: Patient was taken to OR in supine position and was placed under general anesthesia. The right lateral chest wall was prepped and draped in the usual fashion. SCD's were placed for DVT prophylaxis. Perioperative antibiotics were given intravenously. Using xylocaine with epinephrine, the right lateral chest wall was infiltrated. After waiting 5 minutes for the anesthetic to take effect, I removed the remaining sutures that remained after the Pseudomonas destruction. Further incision was done to get exposure down to the chest wall and musculature. A lot of fat necrosis was present. A lot of abnormal granulation tissue was present. Minimal pus was seen. A curette was used to sharply debride the abnormal granulation tissue off the muscle. Muscle appeared viable. No evidence of necrotizing process. Some of the muscle was sharply debrided. The extensive fat necrosis was sharply excised and debrided. Tissue was sent to Pathology for analysis to rule out carcinoma and to Microbiology for culture. A positive culture may necessitate antibiotic modification. MRSA Wound DNA by PCR was also done. The wound was irrigated with saline. Hemostasis was obtained with electrocautery. The size of the wound after the incision and drainage and excisional debridement was 10 x 4 x 5 cm. The wound was then packed with Mepitel nonadherent dressing followed by Kerlix gauze and Betadine followed by dry Kerlix gauze and ABD pads compression dressing. Patient tolerated the procedure well and was sent to PACU in satisfactory condition. Patient will be sent upstairs for continued postop care. The VAC will be applied tomorrow. Grafts/Implants Used: None. - Complications None. - Admit VTE Documentation VTE Present on Admission: No VTE Mechan Device Prophylaxis: SCD's VTE Pharm Prophylaxis ordered?: No Code Visit Surgery Charges CPT - 76617 ICD-10 - L02.213, L98.492, A49.8, A49.02 57254 L02.213, L98.492, A49.8, A49.02
[2018-04-19] MEDS: Escitalopram Oxalate 10 MG Tablet 5 MG PO (09:34)
[2018-04-19] MEDS: LORazepam 0.5 MG Tablet PO (09:35)
[2018-04-19] MEDS: buPROPion (XL) 300 MG TABLET.XL PO (09:35)
--- NOTE | 2018-04-19 09:45 | CASEMGMT ---
Addendum entered by Jed Tijerina 04/19/18 10:08: Clinical information faxed to [facility] with request they set up Home Health. Original Note: ÁLVARO MASTERSON Note: Script received from Dr. Garibay for home IV antibiotics. OK for dc today if IV antibx and Home Care can be set up. -Intro role of CM to patient in room. She would like to dc today, however RN ALEJA did let her know it is dependent on IV antibx set up and Home care set up, but information will be faxed to [facility]. No preference on Home Care. Pt had [facility] in past, but is agreeable to any agency that can staff. Yordan CHANDRAN RN ACM
--- NOTE | 2018-04-19 11:05 | NURSING ---
wound photo: right lateral chest
[2018-04-19 14:50] VITALS: BP 122/78; PULSE 70; RESP 18; TEMP 36.9; O2SAT 100
[2018-04-19] MEDS: Lactated Ringers 1,000 ML 60 ML IV (15:01)
--- NOTE | 2018-04-19 15:10 | CASEMGMT ---
Call received from Allan nurse with [facility] . Antibiotics will be delivered tomorrow, and start of care for home care will be 04/20/18 evening dose. Pt will need to receive am dose @ [facility] tomorrow AM prior to dc. Cabrera SHAHID RN ACM
[2018-04-19] MEDS: DiphenhydrAMINE 25 MG Capsule PO (19:24)
[2018-04-19 22:06] VITALS: BP 130/67; PULSE 82; RESP 16; TEMP 36.9; O2SAT 98
--- NOTE | 2018-04-19 22:21 | PCM.PN.SRG ---
Subjective: Postop #1 Patient has complaints of wound pain. VAC applied today. In preparation for ease in home IV antibiotic therapy, I stopped Zosyn and started Cefepime. - Physical Exam General: Alert, Oriented x3 HEENT: PERRLA, EOMI Oral: Moist Mucosa Neck: Supple Abdomen: Soft, Non-Distended Skin: Ulcer/ Wound - right lateral chest wall wound is stable. No bleeding seen. VAC applied today. Neurological: Cranial nerves II-XII grossly intact Psych/Mental Status: Normal Affect, Appropriate Vital Signs Temp Pulse Resp BP Pulse Ox 98.4 F 82 16 130/67 H 98 04/19/18 22:06 04/19/18 22:06 04/19/18 22:06 04/19/18 22:06 04/19/18 22:06 Oxygen Delivery Method Room Air Weight: 228 lb 13.437 oz Body Mass Index (BMI) 35.8 Intake and Output for Last 24 Hours 04/17/18 04/18/18 04/19/18 23:59 23:59 23:59 Intake Total 4671 / 4671 5538 / 5538 2955 / 2955 Output Total 3300 / 3300 2450 / 2450 1900 / 1900 Balance 1371 / 1371 3088 / 3088 1055 / 1055 Microbiology Past 72 Hours 04/18/18 14:31 Gram Stain - Final Abs - Chest Wound Culture - Preliminary No growth-Final to follow 04/16/18 06:55 Gram Stain - Final Wound - Chest Wound Culture - Final Pseudomonas aeroginosa Anaerobic Culture - Preliminary No growth in 48 hours. Laboratory Tests Past 24 Hrs 04/19/18 04/19/18 04:10 04:10 WBC 6.1 RBC 3.85 L Hgb 10.0 L Hct 32.8 L MCV 85.2 MCH 26.0 L MCHC 30.5 L RDW 13.8 RDW Differential 42.8 Plt Count 201 MPV 10.7 Sodium 144 Potassium 3.8 Chloride 105 Carbon Dioxide 29.0 Anion Gap 10 BUN 13 Creatinine 0.88 Estim Creat Clear Calc 95.03 Est GFR (MDRD) Af Amer 100 Est GFR (MDRD) Non-Af 83 BUN/Creatinine Ratio 14.7 Glucose 107 H Calcium 8.2 L Medical Necessity - Tobacco Use Smoking Status: Never smoker Tobacco Use: Secondhand Assessment/Plan All Active Problems (Last Updated 04/13/18 @ 13:50 by Tammy Hoyos) Pseudomonas aeruginosa infection (Acute) Open wound of right chest wall with complication (Acute) Cellulitis of right breast (Acute) Cellulitis of chest wall (Acute) Abscess of chest wall (Acute) Cellulitis and abscess of other specified site (Acute) MRSA (methicillin resistant Staphylococcus aureus) infection (Acute) Abscess of right breast (Ruled-out) Acute pyelonephritis (Resolved) 1. Nonhealing painful ulcer right lateral chest wall. 2. MRSA. 3. s/p surgical preparation right lateral chest wall with excision nonhealing painful MRSA ulcer and 10 cm complex secondary wound closure. 4. s/p surgical preparation right lateral chest wall with incision and drainage and excisional debridement Pseudomonas abscess (40 cm2). 5. Pseudomonas infection right lateral chest wall. PICC line in place. Continue IV Vancomycin and Levaquin. Zosyn changed to Cefepime for ease in home use. Had MRSA before. There is Pseudomonas aeroginosa presently in the wound. Still needs IV analgesia for pain control. VAC applied today. With the Pseudomonas and MRSA, will treat with IV antibiotics for 6 weeks. Prealbumin was 15.1. Encourage nutritional supplementation with protein to help the healing process. After discharge, will followup at [facility]. Awaiting approval for IV antibiotics for home.
[2018-04-20] MEDS: diazePAM 5 MG Tablet PO ×3 (00:17→12:07)
[2018-04-20 00:18] VITALS: BP 103/62; PULSE 70; RESP 16; TEMP 36.8; O2SAT 95
[2018-04-20] MEDS: oxyCODONE 5 MG Tablet 10 MG PO ×3 (01:28→10:49)
[2018-04-20] MEDS: HYDROmorphone 1 MG/ML Syringe IV ×3 (04:01→12:07)
[2018-04-20 04:06] VITALS: BP 146/86; PULSE 75; RESP 16; TEMP 36.9; O2SAT 100
[2018-04-20] MEDS: levoFLOXacin 500 MG Tablet PO (06:03)
[2018-04-20] MEDS: 0.9% NaCl Peripheral Flush Adult/Peds IV (08:12)
[2018-04-20 08:18] VITALS: BP 117/77; PULSE 77; RESP 18; TEMP 36.7; O2SAT 100
[2018-04-20] MEDS: Escitalopram Oxalate 10 MG Tablet 5 MG PO (09:11)
[2018-04-20] MEDS: LORazepam 0.5 MG Tablet PO (09:12)
[2018-04-20] MEDS: Lactated Ringers 1,000 ML 60 ML IV (09:18)
--- NOTE | 2018-04-20 10:37 | CASEMGMT ---
RN CM Note: Call received from [facility]. Home IV antibiotics/HHS are set up. OK to dc patient home. [facility] will contact pt re: delivery of anitibiotics/supplies today. Home Health nurse from [facility] will see pt this evening for first dose. Charge nurse/nurse updated. Yordan SHAHID RN ACM
--- NOTE | 2018-04-20 11:09 | PN.SURG_ITS ---
Subjective: Postop #2 Patient is tolerating po analgesia. Had some itching. Was given Benadryl. VAC in place. - Physical Exam General: Alert, Oriented x3 HEENT: PERRLA, EOMI Oral: Moist Mucosa Neck: Supple Skin: Ulcer/ Wound - VAC in place. Wound is stable. Minimal drainage in the canister. Neurological: Cranial nerves II-XII grossly intact Psych/Mental Status: Normal Affect, Appropriate Vital Signs Temp Pulse Resp BP Pulse Ox 98.1 F 77 18 117/77 100 04/20/18 08:18 04/20/18 08:18 04/20/18 08:18 04/20/18 08:18 04/20/18 08:18 Oxygen Delivery Method Room Air Weight: 228 lb 13.437 oz Body Mass Index (BMI) 35.8 Intake and Output for Last 24 Hours 04/18/18 04/19/18 04/20/18 23:59 23:59 23:59 Intake Total 5538 / 5538 2955 / 2955 Output Total 2450 / 2450 1900 / 1900 Balance 3088 / 3088 1055 / 1055 Microbiology Past 72 Hours 04/18/18 14:31 Gram Stain - Final Abs - Chest Wound Culture - Preliminary GNR Poss Pseudomonas sp 04/16/18 06:55 Gram Stain - Final Wound - Chest Wound Culture - Final Pseudomonas aeroginosa Anaerobic Culture - Preliminary No growth in 48 hours. Medical Necessity - Tobacco Use Smoking Status: Never smoker Tobacco Use: Secondhand Assessment/Plan All Active Problems (Last Updated 04/13/18 @ 13:50 by Tammy Hoyos) Pseudomonas aeruginosa infection (Acute) Open wound of right chest wall with complication (Acute) Cellulitis of right breast (Acute) Cellulitis of chest wall (Acute) Abscess of chest wall (Acute) Cellulitis and abscess of other specified site (Acute) MRSA (methicillin resistant Staphylococcus aureus) infection (Acute) Abscess of right breast (Ruled-out) Acute pyelonephritis (Resolved) 1. Nonhealing painful ulcer right lateral chest wall. 2. MRSA. 3. s/p surgical preparation right lateral chest wall with excision nonhealing painful MRSA ulcer and 10 cm complex secondary wound closure. 4. s/p surgical preparation right lateral chest wall with incision and drainage and excisional debridement Pseudomonas abscess (40 cm2). 5. Pseudomonas infection right lateral chest wall. PICC line in place. Continue IV Vancomycin and Cefepime at home. Continue Cipro po at home. Had MRSA before. There is Pseudomonas aeroginosa presently in the wound for which I am treating with dual therapy. Tolerating po analgesia. VAC in place. To be changed three times per week at 150 mmHg continuous suction. With the Pseudomonas and MRSA, will treat with IV antibiotics for 6 weeks. Prealbumin was 15.1. Encourage nutritional supplementation with protein to help the healing process. Discharge home today. Followup at [facility] Wednesday04/25/18. Wrote scripts for Percocet for pain (60 tabs) and for Valium for spasm (30 tabs) . Wrote scripts for Phenergan for nausea (30 tabs) and a refill and for Colace for constipation (60 tabs). Wrote script for Benadryl for itching, twice a day (30 tabs) and a refill.
--- NOTE | 2018-04-20 11:09 | PCM.DC ---
You will use the following diet at home:: No restrictions, Other - encourage nutritional supplementation with protein to help the healing process. Discharge Activity: May not drive while taking narcotic pain medications. May shower in (days): 2 - may shower on the days the vac is changed. May resume sexual activity in: No Restrictions Weight Bearing Status: Weight bearing as tolerated Call your doctor if your incision/area has: Continuous Slow Oozing, Sudden Increased Bleeding, Increased Pain/ Swelling, Increased Redness, Foul Smelling Discharge, Swelling at the incision site Call your doctor if you observe: Fever of 101 or Higher, Coldness, Increased Pain, Shortness of breath, Chest pain, Calf discomfort, Uncontrolled pain Suture Line Care: - - vac changes three times per week at 150 mmHg continuous suction. Change Dressing in (Days):: 2 - vac changes three times per week. Cleanse incision/area with: Soap & Water - may cleanse the wound with soap and water on the days the vac is changed., - - may shower on the days the vac is changed. Additional Dressing/Incision Instructions:: Home Health to assist with vac changes three times per week at 150 mmHg continuous suction. may cleanse the wound with soap and water on the days the vac is changed. Additional Instructions: Home Health to draw CBC, CMP, ESR, CRP, Vancomycin Trough qMonday. Pharmacy to dose. Please fax results to [facility] Center at [phone]. Allergies/Adverse Reactions: Allergies No Known Allergies Allergy (Verified 04/13/18 13:56) Medications to take at Discharge Escitalopram Oxalate [Lexapro] 5 mg PO DAILY 04/04/18 Lorazepam [Ativan] 0.5 mg PO DAILY 04/04/18 Bupropion HCl [Wellbutrin Xl] 300 mg PO DAILY 04/15/18 Cefepime HCl [Maxipime] 2 gm IV Q12 38 Days #76 vial 04/19/18 Vancomycin IV 1,500 mg IV Q12H 38 Days #76 vial 04/19/18 Ciprofloxacin HCl 750 mg PO BID #42 tab 04/20/18 Diazepam [Valium] 5 mg PO 4X/DAY PRN #30 tab 04/20/18 DiphenhydrAMINE [Benadryl] 25 mg PO BID PRN PRN #30 cap 04/20/18 Docusate Sodium [Colace] 100 mg PO BID #60 cap 04/20/18 Oxycodone HCl/Acetaminophen [Percocet 5-325] 1 - 2 tab PO 4X/DAY PRN PRN 7 Days #60 tab 04/20/18 Vancomycin IV Pharmacy to Dose 1 ea IV X1 PRN each 04/20/18 proMETHazine tablet [Phenergan tablet] 25 mg PO 4X/DAY PRN PRN #30 tab 04/20/18 The following prescriptions were given: Cefepime HCl [Maxipime] 2 gm IV Q12 38 Days #76 vial DiphenhydrAMINE [Benadryl] 25 mg PO BID PRN PRN #30 cap PRN Reason: Itching Oxycodone HCl/Acetaminophen [Percocet 5-325] 1 - 2 tab PO 4X/DAY PRN PRN 7 Days #60 tab PRN Reason: Pain proMETHazine tablet [Phenergan tablet] 25 mg PO 4X/DAY PRN PRN #30 tab PRN Reason: NAUSEA/VOMITING Vancomycin IV 1,500 mg IV Q12H 38 Days #76 vial Ciprofloxacin HCl 750 mg PO BID #42 tab Docusate Sodium [Colace] 100 mg PO BID #60 cap Diazepam [Valium] 5 mg PO 4X/DAY PRN #30 tab PRN Reason: spasms Primary Care Physician: Dario Poe DO [Primary Care Provider] - Test Results: Test results from this visit will be discussed in further detail at your follow-up appointment, if applicable. Please Follow Up With: Benjamin Garibay MD When: wednesday04/25/18 at wound center. call [phone] for appt. Proposed Discharge Date: 04/20/18
--- NOTE | 2018-04-20 11:14 | DCINST_ITS ---
You will use the following diet at home:: No restrictions, Other - encourage nutritional supplementation with protein to help the healing process. Discharge Activity: May not drive while taking narcotic pain medications. May shower in (days): 2 - may shower on the days the vac is changed. May resume sexual activity in: No Restrictions Weight Bearing Status: Weight bearing as tolerated Call your doctor if your incision/area has: Continuous Slow Oozing, Sudden Increased Bleeding, Increased Pain/ Swelling, Increased Redness, Foul Smelling Discharge, Swelling at the incision site Call your doctor if you observe: Fever of 101 or Higher, Coldness, Increased Pain, Shortness of breath, Chest pain, Calf discomfort, Uncontrolled pain Suture Line Care: - - vac changes three times per week at 150 mmHg continuous suction. Change Dressing in (Days):: 2 - vac changes three times per week. Cleanse incision/area with: Soap & Water - may cleanse the wound with soap and water on the days the vac is changed., - - may shower on the days the vac is changed. Additional Dressing/Incision Instructions:: Home Health to assist with vac changes three times per week at 150 mmHg continuous suction. may cleanse the wound with soap and water on the days the vac is changed. Additional Instructions: Home Health to draw CBC, CMP, ESR, CRP, Vancomycin Trough qMonday. Pharmacy to dose. Please fax results to [facility] at . Allergies/Adverse Reactions: Allergies No Known Allergies Allergy (Verified 04/13/18 13:56) Medications to take at Discharge Escitalopram Oxalate [Lexapro] 5 mg PO DAILY 04/04/18 Lorazepam [Ativan] 0.5 mg PO DAILY 04/04/18 Bupropion HCl [Wellbutrin Xl] 300 mg PO DAILY 04/15/18 Cefepime HCl [Maxipime] 2 gm IV Q12 38 Days #76 vial 04/19/18 Vancomycin IV 1,500 mg IV Q12H 38 Days #76 vial 04/19/18 Ciprofloxacin HCl 750 mg PO BID #42 tab 04/20/18 Diazepam [Valium] 5 mg PO 4X/DAY PRN #30 tab 04/20/18 DiphenhydrAMINE [Benadryl] 25 mg PO BID PRN PRN #30 cap 04/20/18 Docusate Sodium [Colace] 100 mg PO BID #60 cap 04/20/18 Oxycodone HCl/Acetaminophen [Percocet 5-325] 1 - 2 tab PO 4X/DAY PRN PRN 7 Days #60 tab 04/20/18 Vancomycin IV Pharmacy to Dose 1 ea IV X1 PRN each 04/20/18 proMETHazine tablet [Phenergan tablet] 25 mg PO 4X/DAY PRN PRN #30 tab 04/20/18 The following prescriptions were given: Cefepime HCl [Maxipime] 2 gm IV Q12 38 Days #76 vial DiphenhydrAMINE [Benadryl] 25 mg PO BID PRN PRN #30 cap PRN Reason: Itching Oxycodone HCl/Acetaminophen [Percocet 5-325] 1 - 2 tab PO 4X/DAY PRN PRN 7 Days #60 tab PRN Reason: Pain proMETHazine tablet [Phenergan tablet] 25 mg PO 4X/DAY PRN PRN #30 tab PRN Reason: NAUSEA/VOMITING Vancomycin IV 1,500 mg IV Q12H 38 Days #76 vial Ciprofloxacin HCl 750 mg PO BID #42 tab Docusate Sodium [Colace] 100 mg PO BID #60 cap Diazepam [Valium] 5 mg PO 4X/DAY PRN #30 tab PRN Reason: spasms Primary Care Physician: Dario Poe DO [Primary Care Provider] - Test Results: Test results from this visit will be discussed in further detail at your follow- up appointment, if applicable. Please Follow Up With: Benjamin Garibay MD When: wednesday04/25/18 at wound center. call [phone] for appt. Proposed Discharge Date: 04/20/18
--- NOTE | 2018-04-20 11:15 | DS.PCM_ITS ---
Discharge Date and Diagnosis Date of Admission: 04/15/18 Date of Discharge: 04/20/18 - Primary Discharge Diagnosis Pseudomonas abscess right lateral chest wall. Nonhealing infected ulcer right lateral chest wall. - Secondary Discharge Diagnosis MRSA. BMI 38.0-38.9,adult. Depression. Hospital Course and Treatment Imaging Results: None. Consultations 04/16/18 03:29 Consult: Onc/Wound/health information director Routine Comment: right chest wound Operations: - - 04/18/18 - Surgical preparation right lateral chest wall with incision and drainage and excisional debridement Pseudomonas abscess (40 cm2). Procedures: PICC line placement, Wound vac placement Summary of Care Provided: The patient is a 23 year old F who had surgery on April 05, 2018 where she underwent surgical preparation right lateral chest wall with excision nonhealing painful MRSA ulcer and 10 cm complex secondary wound closure. Initial culture screen showed MRSA and she was discharged on Doxycycline. Further culture result showed Pseudomonas. Ciprofloxacin was added. On the day of admission, 04/15/18, she came to the office complaining of her incision opening up with drainage. On exam, the central portion of the incision opened up. The wound measured 6 x 1.5 cm. There was surrounding redness and increased pain. Patient denied any fever. She did complain of feeling rundown and fatigued. With the complexity of the wound and the nature of the organisms present in the wound, the patient has failed outpatient antibiotic therapy. It was recommended to the patient to be admitted to the hospital for more aggressive wound care with daily Silver dressing changes. Also will start IV antibiotics. Will anticipate the need for [facility] IV antibiotics and a PICC line will be placed. Depending on how well the wound care responds to the Silver dressing changes, further operative debridement may be necessary in preparation for the use of the VAC for wound care. Patient was informed of the risks and complications of the procedure including alternatives to surgery. These were discussed with the patient personally. Patient voices understanding and wishes to proceed with the current plan of admission followed by aggressive wound care with Silver dressing changes and IV antibiotic therapy. She is aware that further operative intervention may be necessary. Will start IV Vancomycin, Zosyn, and Levaquin. Prealbumin was done since increased metabolic demands was anticipated. It was 15.1. Encouraged nutritional supplementation with protein to help the healing process. A PICC line was placed the following morning. Over the weekend, the wound enlarged each day with the Silver dressing changes. Operative intervention was recommended, and on 04/18/18, the patient was taken to surgery where she underwent surgical preparation right lateral chest wall with incision and drainage and excisional debridement Pseudomonas abscess (40 cm2). She tolerated the procedure well. The next day, 04/19/18, the VAC was placed without difficulty. In preparation for home antibiotics, Zosyn is difficult to administer since it is three times per day. So the Zosyn was stopped and Cefepime started for the Pseudomonas. Levaquin was continued for dual therapy for the Pseudomonas. The Vancomycin was continued because of her recent MRSA infection in the same wound. Home IV antibiotics were set up for her and she was discharged home the following morning in satisfactory condition. The Levaquin was changed to Cipro po for home in addition to the Vancomycin and Cefepime. Home Health will assist with the VAC changes three times per week at 150 mmHg continuous suction. Wrote scripts for Percocet for pain (60 tabs) and for Valium for spasm (30 tabs) . Wrote scripts for Phenergan for nausea (30 tabs) and a refill and for Colace for constipation (60 tabs). Wrote script for Benadryl for itching, twice a day (30 tabs) and a refill. She had some itching the day before discharge. [facility]up [facility] on Wednesday04/25/18. With the Pseudomonas and MRSA, will treat with IV antibiotics for 6 weeks. Discharge Diet: No Restrictions, - - encourage nutritional supplementation with protein to help the healing process. Discharge Activity: May not drive while taking narcotic pain medications. May shower in (days): 2 - may shower on the days the vac is changed. May resume sexual activity in: No Restrictions Weight Bearing Status: Weight bearing as tolerated Call your doctor if your incision/area has: Continuous Slow Oozing, Sudden Increased Bleeding, Increased Pain/ Swelling, Increased Redness, Foul Smelling Discharge, Swelling at the incision site Call your doctor if you observe: Fever of 101 or Higher, Coldness, Increased Pain, Shortness of breath, Chest pain, Calf discomfort, Uncontrolled pain Suture Line Care: - - vac changes three times per week at 150 mmHg continuous suction. Change Dressing in (Days):: 2 - vac changes three times per week. Cleanse incision/area with: Soap & Water - may cleanse the wound with soap and water on the days the vac is changed., - - may shower on the days the vac is changed. Additional Dressing/Incision Instructions:: Home Health to assist with vac changes three times per week at 150 mmHg continuous suction. may cleanse the wound with soap and water on the days the vac is changed. Home Medications: Medications to take at Discharge Escitalopram Oxalate [Lexapro] 5 mg PO DAILY 04/04/18 Lorazepam [Ativan] 0.5 mg PO DAILY 04/04/18 Bupropion HCl [Wellbutrin Xl] 300 mg PO DAILY 04/15/18 Cefepime HCl [Maxipime] 2 gm IV Q12 38 Days #76 vial 04/19/18 Vancomycin IV 1,500 mg IV Q12H 38 Days #76 vial 04/19/18 Ciprofloxacin HCl 750 mg PO BID #42 tab 04/20/18 Diazepam [Valium] 5 mg PO 4X/DAY PRN #30 tab 04/20/18 DiphenhydrAMINE [Benadryl] 25 mg PO BID PRN PRN #30 cap 04/20/18 Docusate Sodium [Colace] 100 mg PO BID #60 cap 04/20/18 Oxycodone HCl/Acetaminophen [Percocet 5-325] 1 - 2 tab PO 4X/DAY PRN PRN 7 Days #60 tab 04/20/18 Vancomycin IV Pharmacy to Dose 1 ea IV X1 PRN each 04/20/18 proMETHazine tablet [Phenergan tablet] 25 mg PO 4X/DAY PRN PRN #30 tab 04/20/18 Following Prescrptions Were Given to Patient: Cefepime HCl [Maxipime] 2 gm IV Q12 38 Days #76 vial DiphenhydrAMINE [Benadryl] 25 mg PO BID PRN PRN #30 cap PRN Reason: Itching Oxycodone HCl/Acetaminophen [Percocet 5-325] 1 - 2 tab PO 4X/DAY PRN PRN 7 Days #60 tab PRN Reason: Pain proMETHazine tablet [Phenergan tablet] 25 mg PO 4X/DAY PRN PRN #30 tab PRN Reason: NAUSEA/VOMITING Vancomycin IV 1,500 mg IV Q12H 38 Days #76 vial Ciprofloxacin HCl 750 mg PO BID #42 tab Docusate Sodium [Colace] 100 mg PO BID #60 cap Diazepam [Valium] 5 mg PO 4X/DAY PRN #30 tab PRN Reason: spasms Primary Care Physician: Dario Poe DO [Primary Care Provider] - Please Follow Up With: Benjamin Garibay MD When: wednesday04/25/18 at [facility]. call [phone] for appt. Disposition: Home with Home Health Minutes spent on discharge:: 35 Patient Condition:: Stable Medical Necessity - Tobacco Use Smoking Status: Never smoker Tobacco Use: Secondhand Meaningful Use Info Meaningful Use Diagnoses (Choose all that apply): None applicable
--- NOTE | 2018-04-20 12:05 | NURSING ---
PT RESTING QUIETLY IN BED WITH EYES CLOSED, RESP EASY
[2018-04-20] MEDS: buPROPion (XL) 300 MG TABLET.XL PO (12:14)
[2018-04-20 12:15] VITALS: BP 113/76; PULSE 88; RESP 18; TEMP 36.8; O2SAT 100
[2018-04-20 13:30] VITALS: BP 113/76; PULSE 88; RESP 18; TEMP 36.8; O2SAT 100
--- NOTE | 2018-04-22 16:13 | NURSING ---
TALKED WITH DR OLVERA ABOUT PT'S F/U CARE - WILL CONTACT DISTRIBUTION SALES MANAGER-
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
--- NOTE | 2018-04-23 10:21 | CASEMGMT ---
ÁLVARO MASTERSON NOTE: Pt was seen in ER last evening but was then discharged home. This RN CM spoke w/Dr Garibay who stated he did speak with ER last PM and was aware pt was discharged home from ER. Dr Garibay aware RN CM awaiting call from [facility] re: [facility] for wound vac care. This RN ALEJA then received call back from Allan Valdivia from [facility] who stated [facility] able to accept pt today 04/23/18 and can provide Wound Vac Care. ÁLVARO MASTERSON called [facility] @ [phone] who confirmed that they are able to accept pt today with start of care being today 04/23/18. Discharge Instructions and [facility] order faxed to [place] @ . Nishant SHAHID RN, CM
== END 2018-04-20 13:30 | disposition home or self-care (01) | DRG 264 ==
PROVIDERS: Admitting Provider Surgery; Family Provider Student in an Organized Health Care Education/Training Program; PCP Student in an Organized Health Care Education/Training Program; Visit Provider Surgery
PROC: 0JB60ZZ Excision of Chest Subcutaneous Tissue and Fascia, Open Approach (ICD-10-PCS; principal; 2018-04-18 07:20)
DX: L02.213 Cutaneous abscess of chest wall (principal); L98.499 Non-pressure chronic ulcer of skin of other sites with unspecified severity; B96.5 Pseudomonas (aeruginosa) (mallei) (pseudomallei) as the cause of diseases classified elsewhere; Z86.14 Personal history of Methicillin resistant Staphylococcus aureus infection; F32.9 Major depressive disorder, single episode, unspecified
CPT/HCPCS: 36415; 36569; 80048; 80053; 80202; 84134; 85027; 86140; 87070; 87075; 87077; 87102; 87184; 87186; 87205; 87206; 87640; 88304; 97802; J7040; J7050; J7120; A4216; J2405

== ENCOUNTER 2018-04-22 17:18 | Emergency (ER) | payer MEDICAID, SELFPAY ==
[2018-04-22 17:18] VITALS: BP 151/86; PULSE 100; RESP 18; TEMP 36.7; O2SAT 95; BMI 36.8
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
[2018-04-22] MEDS: Ondansetron 4 MG/2 ML Vial IV (17:46)
[2018-04-22] MEDS: Morphine 4 MG/ML Syringe IV (17:46)
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
[2018-04-22] MEDS: Acetaminophen 500 MG Tablet 1000 MG PO (19:42)
[2018-04-22 19:43] VITALS: BP 110/71; PULSE 78; RESP 18; O2SAT 97
== END 2018-04-22 19:45 | disposition home or self-care (01) ==
LOC: ED 18:41
PROVIDERS: Emergency Provider Emergency Medicine; Family Provider Student in an Organized Health Care Education/Training Program; PCP Student in an Organized Health Care Education/Training Program
DX: S00.03XA Contusion of scalp, initial encounter (principal); S16.1XXA Strain of muscle, fascia and tendon at neck level, initial encounter; V89.2XXA Person injured in unspecified motor-vehicle accident, traffic, initial encounter; Y93.89 Activity, other specified
CPT/HCPCS: 36592; 70450; 72125; 96374; 96375; 99284; J2997; A4216; J2405

== ENCOUNTER 2018-05-02 11:30 | Outpatient (RCR) | payer MEDICAID, SELFPAY ==
[2018-04-09 01:40] VITALS: BP 146/85; PULSE 84; RESP 18; TEMP 37.2
[2018-04-25 11:37] VITALS: BP 126/89; PULSE 77; RESP 16; TEMP 37
--- NOTE | 2018-04-25 23:00 | PN.PCM_ITS ---
Type of Wound Date of Service: 04/25/18 Chief Complaint: Nonhealing MRSA and Pseudomonas ulcer right lateral chest wall. History of Wound: Surgery 04/18/18 - Surgical preparation right lateral chest wall with incision and drainage and excisional debridement Pseudomonas abscess (40 cm2). Surgery 04/05/18 - Surgical preparation right lateral chest wall with excision nonhealing painful MRSA ulcer and 10 cm complex secondary wound closure. Surgery 02/22/18 - Surgical preparation right lateral chest wall/lateral breast with incision and drainage and excisional debridement abscess (48 cm2). Wound care - VAC. Operative culture - MRSA and Pseudomonas aeroginosa. She is currently on Vancomycin, Cefepime, and Cipro. Prealbumin was 15.1 on 04/16/18. Encourage nutritional supplementation with protein to help the healing process. Today she denies fever. Her appetite is good. Progress of Wound: Recent surgery on 04/18/18. - Physical Exam Vital Signs Temp Pulse Resp BP 98.6 F 77 16 126/89 H 04/25/18 11:37 04/25/18 11:37 04/25/18 11:37 04/25/18 11:37 Wound Measurements and Assessment WC - Nurse 1 - General Ulcer Measurement Start: 04/25/18 11:37 Freq: Status: Active Protocol: Activity Type Activity Date Activity User E-Sign Co-Sign Detail Recorded Client Recorded Date Recorded By Document 04/25/18 11:37 [facility] [id number] 04/25/18 11:42 [facility] 04/25/18 11:37 Wound Center Nurse 1 [Ulcer Assessment] #1 RIGHT UPPER RIB AREA -Combined with other wound No -Current Size (cm) - Length 5.4 -Current Size (cm) - Width 10 -Current Size (cm) - Depth 4.6 -Total Square Cm 54.0 -Date of Last Picture (Recall this 04/25/18 field) -Photo Taken Yes -Epithelialization None Present -Tunneling No -Undermining/Tunneling No -Circular Undermining No -Exudate Amt Medium (34-66%) -Exudate Type Serosanguineous -Wound Margin Distinct, Outline Attached -Granulation Amt Medium (34-66%) -Granulation Quality Red -Slough/Fibrin Yes -Necrosis Amt Medium (34-66%) -Necrotic Tissue Type Adherent Slough -Texture (Nilsa-wound Skin Appearance) Scarring Rash -Moisture (Nilsa-wound Skin Appearance Assessed ) -Color (Nilsa-wound Skin Appearance) Erythema -Temperature (Nilsa-wound Skin No Abnormality Appearance) (Pt Warm) -Tenderness on Palpation (Nilsa-wound Yes Skin Appearance) -Ulcer Cleansing Rinsed/ Irrigated with Saline -Foul Odor after Cleansing No -Anesthetic Used 4% Lidocaine Solution WC - Nurse 2 - General Ulcer CM Notes Start: 04/25/18 11:37 Freq: Status: Active Protocol: Activity Type Activity Date Activity User E-Sign Co-Sign Detail Recorded Client Recorded Date Recorded By Document 04/25/18 12:36 [id number] 04/25/18 12:44 04/25/18 12:36 Wound Center Nurse 2 [Procedure/Treatment] -Correct Patient No -Correct Side, Site, Position No -Correct Procedure No -Procedure Performed No [See Physician Procedure note for Specifics] Pain Scale: 0-10 Numeric [Pain] -Is Patient Pain Free? Yes Debridement Note Post-Debridement Measurements/Treatment WC - Nurse 2 - General Ulcer CM Notes Start: 04/25/18 11:37 Freq: Status: Active Protocol: Activity Type Activity Date Activity User E-Sign Co-Sign Detail Recorded Client Recorded Date Recorded By Document 04/25/18 12:36 [id number] 04/25/18 12:44 04/25/18 12:36 Wound Center Nurse 2 #1 RIGHT UPPER RIB AREA -Correct Patient No -Correct Side, Site, Position No -Correct Procedure No -Procedure Performed No Pain Scale: 0-10 Numeric Is Patient Pain Free? Yes Wound debrided: #1 Right lateral chest wall. Laterality: Right Wound Grade/Stage: 3. No debridement was completed today - patient had recent surgery on 04/18/18. Assessment/Plan Active Problems (Last Reviewed 05/10/18 @ 21:13 by Bucky Vega MD) Drug induced fever (Acute) Pancytopenia with fever (Acute) Pancytopenia (Acute) Pseudomonas aeruginosa infection (Acute) Non-pressure chronic ulcer of skin of other sites with fat layer exposed (Acute) Open wound of right chest wall with complication (Acute) Assessment: 1. Nonhealing MRSA and Pseudomonas ulcer right lateral chest wall. 2. Pseudomonas abscess right lateral chest wall. 3. MRSA. 4. s/p surgical preparation right lateral chest wall with incision and drainage and excisional debridement Pseudomonas abscess (40 cm2). Plan: Continue the VAC. Continue Vancomycin, Cefepime, and Cipro for the MRSA and Pseudomonas aeroginosa. Prealbumin from 04/16/18 was 15.1. Encourage nutritional supplementation with protein to help the healing process. Renewed her Percocet for pain (50 tabs) to be dispensed 04/27/18. Renewed her Valium for spasm (30 tabs) to be dispensed 04/27/18. Followup one week to see the Nurse Practitioner. Followup 3 weeks to see me.
[2018-05-02 11:50] VITALS: BP 146/92; PULSE 76; RESP 16; TEMP 37.2
[2018-05-02 12:25] VITALS: BP 129/79
--- NOTE | 2018-05-02 17:01 | PCM.WC.PN ---
(1) Open wound of right chest wall with complication Status: Acute Current Visit: Yes Code(s): S21.101A - Unspecified open wound of right front wall of thorax without penetration into thoracic cavity, initial encounter (2) Non-pressure chronic ulcer of skin of other sites with fat layer exposed Status: Acute Current Visit: Yes Code(s): L98.492 - Non-pressure chronic ulcer of skin of other sites with fat layer exposed (3) Abscess of chest wall Status: Acute Current Visit: Yes Code(s): L02.213 - Cutaneous abscess of chest wall Comment: abscess right lateral chest wall/lateral breast area (4) Pseudomonas aeruginosa infection Status: Acute Current Visit: Yes Code(s): A49.8 - Other bacterial infections of unspecified site (5) MRSA (methicillin resistant Staphylococcus aureus) infection Status: Acute Current Visit: Yes Code(s): A49.02 - Methicillin resistant Staphylococcus aureus infection, unspecified site Type of Wound Chief Complaint: 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 History of Wound: Surgery 02/22/18 -surgical preparation right lateral chest wall/lateral breast with incision and drainage and excisional debridement abscess (48 cm2). Operative cultures?MRSA. She was discharged on doxycycline. Pre-albumin was 15.0 on 02/22/18. Surgery 04/05/2018 Surgical preparation right lateral chest wall with excision nonhealing painful MRSA ulcer and 10 cm complex secondary wound closure. Surgery 04/18/2018 Surgical preparation right lateral chest wall with incision and drainage and excisional debridement Pseudomonas abscess (40 cm?). Wound VAC restarted, sent home on IV Vancomycin and Cefepime - Physical Exam Vital Signs Temp Pulse Resp BP 98.9 F 76 16 129/79 H 05/02/18 11:50 05/02/18 11:50 05/02/18 11:50 05/02/18 12:25 General: Alert, Oriented x3 HEENT: PERRLA, EOMI Oral: Moist Mucosa Cardiovascular: Regular rate Extremities: No edema Skin: Ulcer/ Wound - Right lateral chest/breast Wound Measurements and Assessment WC - Nurse 1 - General Ulcer Measurement Start: 04/25/18 11:37 Freq: Status: Active Protocol: Activity Type Activity Date Activity User E-Sign Co-Sign Detail Recorded Client Recorded Date Recorded By Document 05/02/18 11:50 [id number] 05/02/18 11:52 05/02/18 11:50 Wound Center Nurse 1 [Ulcer Assessment] #1 RIGHT UPPER RIB AREA -Combined with other wound No -Current Size (cm) - Length 9.4 -Current Size (cm) - Width 4.5 -Current Size (cm) - Depth 4.3 -Total Square Cm 42.30 -Photo Taken No -Epithelialization None Present -Tunneling No -Undermining/Tunneling No -Circular Undermining No -Exudate Amt Medium (34-66%) -Exudate Type Serosanguineous -Wound Margin Distinct, Outline Attached -Granulation Amt Large (67-100%) -Granulation Quality [place] Red -Slough/Fibrin Yes -Necrosis Amt None Present (0 %) -Necrotic Tissue Type Adherent Slough -Texture (Nilsa-wound Skin Appearance) Assessed Scarring -Moisture (Nilsa-wound Skin Appearance Assessed ) -Color (Nilsa-wound Skin Appearance) Assessed -Temperature (Nilsa-wound Skin No Abnormality Appearance) (Pt Warm) -Tenderness on Palpation (Nilsa-wound No Skin Appearance) -Ulcer Cleansing Wound Cleanser -Foul Odor after Cleansing No -Anesthetic Used 4% Lidocaine Solution [Edema Assessment] -Lower Limb Edema Present NA - Nurse 2 - General Ulcer CM Notes Start: 04/25/18 11:37 Freq: Status: Active Protocol: Activity Type Activity Date Activity User E-Sign Co-Sign Detail Recorded Client Recorded Date Recorded By Document 05/02/18 12:10 [id number] 05/02/18 12:13 05/02/18 12:10 Wound Center Nurse 2 [Procedure/Treatment] #1 RIGHT UPPER RIB AREA -Time 12:10 -Correct Patient Yes -Correct Side, Site, Position Yes -Correct Procedure Yes -Procedure Performed Yes -Type of Procedure Debridement -Clinical Debridement Subcutaneous -Post Debridement Size (cm) - Length 5.4 -Post Debridement Size (cm) - Width 8.2 -Post Debridement Size (cm) - Depth 5 -Total Square Cm 44.28 -Wound/Ulcer Outcome Not Healed -Ulcer Cleansing Rinsed/ Irrigated with Saline -Foul Odor after Cleansing No -Bioengineered Tissue No -Bleeding Controlled with Pressure -Treatment Response Procedure Tolerated Well [See Physician Procedure note for Specifics] Pain Scale: 0-10 Numeric [Pain] -Is Patient Pain Free? Yes Musculoskeletal: No Tenderness to Palpation of Joints or Extremities Neurological: Neuro grossly intact Psych/Mental Status: Normal Affect, Appropriate, Alert and oriented to time, place, person, mood and affect Debridement Note Post-Debridement Measurements/Treatment - Nurse 2 - General Ulcer CM Notes Start: 04/25/18 11:37 Freq: Status: Active Protocol: Activity Type Activity Date Activity User E-Sign Co-Sign Detail Recorded Client Recorded Date Recorded By Document 04/25/18 12:36 [id number] 04/25/18 12:44 Document 05/02/18 12:10 [id number] 05/02/18 12:13 04/25/18 05/02/18 12:36 12:10 Wound Center Nurse 2 #1 RIGHT UPPER RIB AREA -Time 12:10 -Correct Patient No Yes -Correct Side, Site, Position No Yes -Correct Procedure No Yes -Procedure Performed No Yes -Type of Procedure Debridement -Clinical Debridement Subcutaneous -Post Debridement Size (cm) - Length 5.4 -Post Debridement Size (cm) - Width 8.2 -Post Debridement Size (cm) - Depth 5 -Total Square Cm 44.28 -Wound/Ulcer Outcome Not Healed -Ulcer Cleansing Rinsed/ Irrigated with Saline -Foul Odor after Cleansing No -Bioengineered Tissue No -Bleeding Controlled with Pressure -Treatment Response Procedure Tolerated Well Pain Scale: 0-10 Numeric Is Patient Pain Free? Yes Yes Wound debrided: Right lateral chest/breast Laterality: Right Type of Debridement: Excisional debridement Anesthesia Used: 4% Lidocaine Solution Depth: in the subcutaneous layer Percentage of wound debrided: 100 Instrument Used: 7mm curette Tissue Removed: Subcutaneous tissue, bioderm and slough. Severity: Fat Layer Exposed Amount of bleeding with debridement: Mild Bleeding Controlled with: Pressure Patient tolerated procedure well Increased amount of bioderm, most likely related to Adaptic dressing being used. Assessment/Plan Active Problems (Last Updated 04/13/18 @ 13:50 by Tammy Hoyos) Pseudomonas aeruginosa infection (Acute) Non-pressure chronic ulcer of skin of other sites with fat layer exposed (Acute) Open wound of right chest wall with complication (Acute) Abscess of chest wall (Acute) abscess right lateral chest wall/lateral breast area MRSA (methicillin resistant Staphylococcus aureus) infection (Acute) Assessment: 1. Nonhealing MRSA ulcer right lateral chest wall. 2. MRSA. 3. Right lateral chest wall abscess. 4. Status post surgical preparation right lateral chest wall lateral breast with incision and drainage and excisional debridement abscess (48 cm square). 5. Pseudomonas aeruginosa Plan: Continue VAC to be changed 3 times a week 150 mmHg continuous suction. Will no longer use Adaptic dressing between her and the foam for the wound VAC due to the increase by a bioderm. Encouraged to wash area of wound with soap and water before wound VAC changes, using soap such as Dove or Ivory or baby soap. Make sure the use skin prep on periwound. Continue home antibiotics as prescribed by Dr. Garibay. Prealbumin was 15.1 on 04/16/2018. Encourage nutritional supplementation with protein to help with healing process. Follow-up in 1 week. Code Visit 111xxx-113xx: 44826 Grace subq tissue 20 sq cm/< Add On Codes: 25639 Grace subq tissue add-on
--- NOTE | 2018-05-03 11:17 | PN.PCM_ITS ---
(1) Open wound of right chest wall with complication Status: Acute Current Visit: Yes Code(s): S21.101A - Unspecified open wound of right front wall of thorax without penetration into thoracic cavity, initial encounter (2) Non-pressure chronic ulcer of skin of other sites with fat layer exposed Status: Acute Current Visit: Yes Code(s): L98.492 - Non-pressure chronic ulcer of skin of other sites with fat layer exposed (3) Abscess of chest wall Status: Acute Current Visit: Yes Code(s): L02.213 - Cutaneous abscess of chest wall Comment: abscess right lateral chest wall/lateral breast area (4) Pseudomonas aeruginosa infection Status: Acute Current Visit: Yes Code(s): A49.8 - Other bacterial infections of unspecified site (5) MRSA (methicillin resistant Staphylococcus aureus) infection Status: Acute Current Visit: Yes Code(s): A49.02 - Methicillin resistant Staphylococcus aureus infection, unspecified site Type of Wound Chief Complaint: 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 History of Wound: Surgery 02/22/18 -surgical preparation right lateral chest wall/lateral breast with incision and drainage and excisional debridement abscess (48 cm2). Operative cultures?MRSA. She was discharged on doxycycline. Pre-albumin was 15.0 on 02/22/18. Surgery 04/05/2018 Surgical preparation right lateral chest wall with excision nonhealing painful MRSA ulcer and 10 cm complex secondary wound closure. Surgery 04/18/2018 Surgical preparation right lateral chest wall with incision and drainage and excisional debridement Pseudomonas abscess (40 cm?). Wound VAC restarted, sent home on IV Vancomycin and Cefepime - Physical Exam Vital Signs Temp Pulse Resp BP 98.9 F 76 16 129/79 H 05/02/18 11:50 05/02/18 11:50 05/02/18 11:50 05/02/18 12:25 General: Alert, Oriented x3 HEENT: PERRLA, EOMI Oral: Moist Mucosa Cardiovascular: Regular rate Extremities: No edema Skin: Ulcer/ Wound - Right lateral chest/breast Wound Measurements and Assessment WC - Nurse 1 - General Ulcer Measurement Start: 04/25/18 11:37 Freq: Status: Active Protocol: Activity Type Activity Date Activity User E-Sign Co-Sign Detail Recorded Client Recorded Date Recorded By Document 05/02/18 11:50 [id number] 05/02/18 11:52 05/02/18 11:50 Wound Center Nurse 1 [Ulcer Assessment] #1 RIGHT UPPER RIB AREA -Combined with other wound No -Current Size (cm) - Length 9.4 -Current Size (cm) - Width 4.5 -Current Size (cm) - Depth 4.3 -Total Square Cm 42.30 -Photo Taken No -Epithelialization None Present -Tunneling No -Undermining/Tunneling No -Circular Undermining No -Exudate Amt Medium (34-66%) -Exudate Type Serosanguineous -Wound Margin Distinct, Outline Attached -Granulation Amt Large (67-100%) -Granulation Quality [place] Red -Slough/Fibrin Yes -Necrosis Amt None Present (0 %) -Necrotic Tissue Type Adherent Slough -Texture (Nilsa-wound Skin Appearance) Assessed Scarring -Moisture (Nilsa-wound Skin Appearance Assessed ) -Color (Nilsa-wound Skin Appearance) Assessed -Temperature (Nilsa-wound Skin No Abnormality Appearance) (Pt Warm) -Tenderness on Palpation (Nilsa-wound No Skin Appearance) -Ulcer Cleansing Wound Cleanser -Foul Odor after Cleansing No -Anesthetic Used 4% Lidocaine Solution [Edema Assessment] -Lower Limb Edema Present NA - Nurse 2 - General Ulcer CM Notes Start: 04/25/18 11:37 Freq: Status: Active Protocol: Activity Type Activity Date Activity User E-Sign Co-Sign Detail Recorded Client Recorded Date Recorded By Document 05/02/18 12:10 [id number] 05/02/18 12:13 05/02/18 12:10 Wound Center Nurse 2 [Procedure/Treatment] #1 RIGHT UPPER RIB AREA -Time 12:10 -Correct Patient Yes -Correct Side, Site, Position Yes -Correct Procedure Yes -Procedure Performed Yes -Type of Procedure Debridement -Clinical Debridement Subcutaneous -Post Debridement Size (cm) - Length 5.4 -Post Debridement Size (cm) - Width 8.2 -Post Debridement Size (cm) - Depth 5 -Total Square Cm 44.28 -Wound/Ulcer Outcome Not Healed -Ulcer Cleansing Rinsed/ Irrigated with Saline -Foul Odor after Cleansing No -Bioengineered Tissue No -Bleeding Controlled with Pressure -Treatment Response Procedure Tolerated Well [See Physician Procedure note for Specifics] Pain Scale: 0-10 Numeric [Pain] -Is Patient Pain Free? Yes Musculoskeletal: No Tenderness to Palpation of Joints or Extremities Neurological: Neuro grossly intact Psych/Mental Status: Normal Affect, Appropriate, Alert and oriented to time, place, person, mood and affect Debridement Note Post-Debridement Measurements/Treatment - Nurse 2 - General Ulcer CM Notes Start: 04/25/18 11:37 Freq: Status: Active Protocol: Activity Type Activity Date Activity User E-Sign Co-Sign Detail Recorded Client Recorded Date Recorded By Document 04/25/18 12:36 [id number] 04/25/18 12:44 Document 05/02/18 12:10 [id number] 05/02/18 12:13 04/25/18 05/02/18 12:36 12:10 Wound Center Nurse 2 #1 RIGHT UPPER RIB AREA -Time 12:10 -Correct Patient No Yes -Correct Side, Site, Position No Yes -Correct Procedure No Yes -Procedure Performed No Yes -Type of Procedure Debridement -Clinical Debridement Subcutaneous -Post Debridement Size (cm) - Length 5.4 -Post Debridement Size (cm) - Width 8.2 -Post Debridement Size (cm) - Depth 5 -Total Square Cm 44.28 -Wound/Ulcer Outcome Not Healed -Ulcer Cleansing Rinsed/ Irrigated with Saline -Foul Odor after Cleansing No -Bioengineered Tissue No -Bleeding Controlled with Pressure -Treatment Response Procedure Tolerated Well Pain Scale: 0-10 Numeric Is Patient Pain Free? Yes Yes Wound debrided: Right lateral chest/breast Laterality: Right Type of Debridement: Excisional debridement Anesthesia Used: 4% Lidocaine Solution Depth: in the subcutaneous layer Percentage of wound debrided: 100 Instrument Used: 7mm curette Tissue Removed: Subcutaneous tissue, bioderm and slough. Severity: Fat Layer Exposed Amount of bleeding with debridement: Mild Bleeding Controlled with: Pressure Patient tolerated procedure well Increased amount of bioderm, most likely related to Adaptic dressing being used. Assessment/Plan Active Problems (Last Updated 04/13/18 @ 13:50 by Tammy Hoyos) Pseudomonas aeruginosa infection (Acute) Non-pressure chronic ulcer of skin of other sites with fat layer exposed (Acute) Open wound of right chest wall with complication (Acute) Abscess of chest wall (Acute) abscess right lateral chest wall/lateral breast area MRSA (methicillin resistant Staphylococcus aureus) infection (Acute) Assessment: 1. Nonhealing MRSA ulcer right lateral chest wall. 2. MRSA. 3. Right lateral chest wall abscess. 4. Status post surgical preparation right lateral chest wall lateral breast with incision and drainage and excisional debridement abscess (48 cm square). 5. Pseudomonas aeruginosa Plan: Continue VAC to be changed 3 times a week 150 mmHg continuous suction. Will no longer use Adaptic dressing between her and the foam for the wound VAC due to the increase by a bioderm. Encouraged to wash area of wound with soap and water before wound VAC changes, using soap such as Dove or Ivory or baby soap. Make sure the use skin prep on periwound. Continue home antibiotics as prescribed by Dr. Garibay. Prealbumin was 15.1 on 04/16/2018. Encourage nutritional supplementation with protein to help with healing process. Follow- up in 1 week. Code Visit 111xxx-113xx: 69903 Grace subq tissue 20 sq cm/< Add On Codes: [id number] Grace subq tissue add-on
== END 2018-05-08 23:59 ==
LOC: WC 11:30
PROVIDERS: Family Provider Student in an Organized Health Care Education/Training Program; PCP Student in an Organized Health Care Education/Training Program; Visit Provider Surgery
DX: L98.492 Non-pressure chronic ulcer of skin of other sites with fat layer exposed (principal); Z86.14 Personal history of Methicillin resistant Staphylococcus aureus infection
CPT/HCPCS: 11042; 11045; 97605; 97606; 99213; G0463

== ENCOUNTER 2018-05-10 16:27 | Inpatient (IN) | payer MEDICAID, SELFPAY ==
[2018-05-10 16:28] VITALS: BP 160/113; PULSE 89; RESP 16; TEMP 38.3; O2SAT 99; BMI 37.8
--- NOTE | 2018-05-10 16:48 | ED.VISSUMM ---
- ER Visit Summary Date of Service: 05/10/18 Chief Complaint: Fever History of Present Illness: The patient is a 23 F treated for an MRSA abscess in her right axilla that was formal surgical resection and debridement by Dr. osvaldo Lebron x2. She is also had a prior drain in place. Currently the patient is on 3 different antibiotics including vancomycin, cefepime and Cipro IV. She is a left arm PICC line. Currently she is under the care of Dr. osvaldo Lebron of plastic surgery and the wound care center. She states today she had a fever and possibly a fever subjectively for the last few days. She was told by Dr. osvaldo Lebron his nurse practitioner to come to the ER to be evaluated. Physical Examination: Young female no acute distress. Vital signs are stable she does have a fever of 101. She does not look septic or toxic. She is in no acute distress. H EENT exam is unremarkable. Moist wheeze membranes. Neck nontender no lymphadenopathy. Lungs clear to auscultation bilaterally. Heart regular rhythm no murmur. Rate about 90. Abdomen is soft and nontender. Normal bowel sounds no peritoneal signs. She is moving all 4 extremities. They are neurovascularly intact. Left upper extremity has a PICC line. Calves are nontender without edema or cords. Back exam nontender. Neurologically she is awake and alert with no focal motor deficits. Her right flank along the right upper rib cage just below her armpit on the right is a large open wound. It several inches in length by at least an inch in width. It involves the skin and subcu tissue. Currently there is no purulent discharge or drainage. It is not bleeding. There is redness and warmth around the room consistent with cellulitis and some of this is secondary to irritation of the skin from the dressing. It was packed. And there is an Ervin wrap around it. Skin is very dry and flaking. Test Results: CBC shows a white count of 0.6. Previously her white counts were 6. She has a hemoglobin of 10 and platelet count of 104,000. This is all new onset pancytopenia. Her signal neutrophils are only 9%. Is obviously immunocompromised. Electrolytes are unremarkable except for potassium of 2.8. Normal gap. Normal creatinine. Blood cultures will be added. Emergency Department Course and Treatment: I will speak to the hospitalist switchboard operator receptionist. I did already speak to Dr. Benjamin Garibay her plastic surgeon. She will need to be admitted and worked up for the pancytopenia also the new onset fever and cellulitis around the prior wound that she is been being treated for. Treatment Plan: [] Disposition: Admission Impression: Status post right axillary MRSA abscess with formal surgical drainage and debridement x2. Fever with cellulitis around the wound New onset pancytopenia Immunocompromised This note was generated with [employer] dictation software. It may contain incorrect words, spelling, and punctuation that were not noted in review of the chart prior to signing ED Disposition - Plan for ED Patient: Chief Complaint: Wound Check Referrals: Dario Poe DO [Primary Care Provider] -
--- NOTE | 2018-05-10 16:51 | ED.DCSUM_ITS ---
- ER Visit Summary Date of Service: 05/10/18 Chief Complaint: Fever History of Present Illness: The patient is a 23 F treated for an MRSA abscess in her right axilla that was formal surgical resection and debridement by Dr. osvaldo Lebron x2. She is also had a prior drain in place. Currently the patient is on 3 d ifferent antibiotics including vancomycin, cefepime and Cipro IV. She is a left arm PICC line. Currently she is under the care of Dr. osvaldo Lebron of plastic surgery and the wound care center. She states today she had a fever and possibly a fever subjectively for the last few days. She was told by Dr. osvaldo Lebron his nurse practitioner to come to the ER to be evaluated. Physical Examination: Young female no acute distress. Vital signs are stable she does have a fever of 101. She does not look septic or toxic. She is in no acute distress. H EENT exam is unremarkable. Moist wheeze membranes. Neck nontender no lymphadenopathy. Lungs clear to auscultation bilaterally. Heart regular rhythm no murmur. Rate about 90. Abdomen is soft and nontender. Normal bowel sounds no peritoneal signs. She is moving all 4 extremities. They are neurovascularly intact. Left upper extremity has a PICC line. Calves are nontender without edema or cords. Back exam nontender. Neurologically she is awake and alert with no focal motor deficits. Her right flank along the right upper rib cage just below her armpit on the right is a large open wound. It several inches in length by at least an inch in width. It involves the skin and subcu tissue. Currently there is no purulent discharge or drainage. It is not bleeding. There is redness and warmth around the room consistent with cellulitis and some of this is secondary to irritation of the skin from the dressing. It was packed. And there is an Ervin wrap around it. Skin is very dry and flaking. Test Results: CBC shows a white count of 0.6. Previously her white counts were 6. She has a hemoglobin of 10 and platelet count of 104,000. This is all new onset pancytopenia. Her signal neutrophils are only 9%. Is obviously immunocompromised. Electrolytes are unremarkable except for potassium of 2.8. Normal gap. Normal creatinine. Blood cultures will be added. Emergency Department Course and Treatment: I will speak to the hospitalist formstone fitter. I did already speak to Dr. Benjamin Garibay her plastic surgeon. She will need to be admitted and worked up for the pancytopenia also the new onset fever and cellulitis around the prior wound that she is been being treated for. Treatment Plan: [] Disposition: Admission Impression: Status post right axillary MRSA abscess with formal surgical drainage and debridement x2. Fever with cellulitis around the wound New onset pancytopenia Immunocompromised This note was generated with [employer] dictation software. It may contain incorrect words, spelling, and punctuation that were not noted in review of the chart prior to signing ED Disposition - Plan for ED Patient: Chief Complaint: Wound Check Referrals: Dario Poe DO [Primary Care Provider] -
[2018-05-10] MEDS: Acetaminophen 500 MG Tablet 1000 MG PO (17:41)
[2018-05-10 18:26] LABS: Absolute Lymphocyte Count 0.34 X10^3/ul (0.83-4.51); Absolute Neutrophil Count 0.1 X10^3/uL (2.0-7.7); Differential Indicated SCAN CRITERIA MET; Eosinophil# 0.01 X10^3/uL; Eosinophils% 1.8 % (0-5); Hematocrit 32.1 % (37-47); Hemoglobin 10.1 g/dl (12.0-15.0); Lymphocyte # 0.34 X10^3/ul (4.0); Lymphocyte % 61.8 % (19-41); Mean Corp Hgb Conc 31.5 g/gl (32-36); Mean Corpuscular Volume 79.5 fL (81-99); Mean Platelet Vol. 10.7 fl (6.2-12.0); Monocyte# 0.15 X10^3/uL; Monocyte% 27.3 % (0-10); Neutrophil # 0.05 X10^3/uL (2.7-7.7); Neutrophil % 9.1 % (47-70); POSITIVE COUNT YES; POSITIVE DIFFERENTIAL YES; POSITIVE MORPHOLOGY NO; Platelet Count 104 K/mm3 (150-450); RBC Distribution Width CV 13.7 % (11.6-14.6); RBC Distribution Width SD 39.5 fl (35.1-43.9); Red Blood Count 4.04 M/mm3 (4.2-5.4)
[2018-05-10 18:27] LABS: White Blood Count 0.6 K/mm3 (4.4-11.0)
[2018-05-10 18:35] LABS: Anion Gap 8 (5-15); BUN 4 mg/dL (7-18); BUN/Creat Ratio 5.4 RATIO (10-20); Calcium,Total 8.1 mg/dL (8.5-10.1); Chloride 104 mmol/L (98-107); Creatinine, Serum 0.74 mg/dL (0.55-1.02); EST Glomerular Filtration Rate 102 mL/min (>60); Est Glom Filt Rate - Afr Amer 123 mL/min (>60); Estimated Creatinine Clearance 108.79 ml/min; Glucose 86 mg/dL (74-106); Potassium 2.8 mmol/L (3.5-5.1); Sodium Level 137 mmol/L (136-145)
[2018-05-10 19:02] LABS: Differential Comment SCANNED
--- NOTE | 2018-05-10 19:13 | HP.PCM_ITS ---
Problem List (1) Drug induced fever Status: Acute (2) Pancytopenia with fever Status: Acute (3) Pancytopenia Status: Acute (4) Open wound of right chest wall with complication Status: Acute History of Present Illness Date of Admission: 05/10/18 Chief Complaint: fever The patient is a 23 year old F with a significant history of depression, anxiety; right armpit wound who presents with persistent fever x 1 day. As stated above patient has a history of right lateral chest wound that she follows up with Dr. Garibay. Patient reported that initially the wound started as a pimple some time in February 2018. Ever since,patient has had wound VAC and 2 surgical drainage/debridement with Dr. Garibay. In the past her wound has been positive for MRSA. In the past she has had wound VAC and a tube drainage to this wound. She follows up with the wound center. She had debridement of the wound at our wound center a day before this admission. Outpatient, she is on vancomycin, Ciprofloxacin and cefepime that she gets through her PICC line. She had a maximal temperature of 101.9 while at home. Because of the persistence of her fever she called Dr. Cummins's office and she was instructed to come to the emergency department. At the Emergency department; she was found to have a temperature of 101.0. Her lab work was significant for significant pancytopenia. Past Medical History Past Medical History (Chronic Problems): Chronic Problems (Last Reviewed 05/10/18 @ 21:13 by Bucky Vega MD) BMI 38.0-38.9,adult (Chronic) Depression (Chronic) Medical History: Medical History (Last Reviewed 05/10/18 @ 21:13 by Bucky Vega MD) Anxiety and depression F41.9, F32.9 Back problem M53.9 Gallstones K80.20 Kidney stones N20.0 Allergies No Known Allergies Allergy (Verified 05/10/18 16:31) Home Medications: Ambulatory Orders Medication Instructions Recorded Oxycodone HCl/Acetaminophen 1 - 2 tab PO 4X/DAY PRN PRN 7 Days 04/25/18 [Percocet 5-325] #50 tab diazepam 5 mg tablet 5 mg PO 4X/DAY PRN #30 tab 05/09/18 Cefepime HCl [Maxipime] 2 gm IV Q12H 05/10/18 Ciprofloxacin [Cipro] 750 mg PO DAILY 05/10/18 Vancomycin IV 1,500 mg IV Q12H 05/10/18 buPROPion XL [Wellbutrin Xl] 300 mg PO DAILY 05/10/18 Surgical History: Surgical History (Last Reviewed 05/10/18 @ 21:13 by Bucky Vega MD) History of appendectomy Z90.49 History of back surgery Z98.890 2007 History of tubal ligation Z98.51 Surgical History: appendectomy, - - Tubal ligation, back surgery for scoliosis Psychiatric History: No pertinent psych hx 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 Denies: Fatigue Eyes: Denies: Blurred vision, Pain HEENT: Denies: Difficulty Hearing, Head Aches Cardiovascular: Denies: Chest Pain Respiratory: Denies: Cough, Shortness of breath at rest, Sputum production Gastrointestinal: Denies: Abdominal Pain, Nausea, Vomiting Genitourinary: Denies: Dysuria Musculoskeletal: Denies: Joint Pain, Joint Tenderness Skin: Denies: Rash, Wounds Neurological: Denies: Numbness, Tingling, Focal weakness Psychiatric: Reports: Anxiety - Controlled with medication, Depression - Controlled with medication. 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 Color skin is pinkish with little discharges of portillo color. Mild scales and mild erythema surrounding wound. No increased warmth. No swelling around wound. Musculoskeletal: No Tenderness to Palpation of Joints or Extremities Lymphatic: No Cervical, Supraclavicular, or Inguinal Adenopathy Neurological: Cranial nerves II-XII grossly intact Psych/Mental Status: Normal Affect, Appropriate Vital Signs Temp Pulse Resp BP Pulse Ox 101.0 F H 89 16 160/113 H 99 05/10/18 16:28 05/10/18 16:28 05/10/18 16:28 05/10/18 16:28 05/10/18 16:28 Oxygen Delivery Method Room Air Weight: 106.3 kg Body Mass Index (BMI) 37.8 Laboratory Tests Past 24 Hrs 05/10/18 05/10/18 18:05 18:05 WBC 0.6 L* RBC 4.04 L Hgb 10.1 L Hct 32.1 L MCV 79.5 L MCH 25.0 L MCHC 31.5 L RDW 13.7 RDW Differential 39.5 Plt Count 104 L MPV 10.7 Immature Gran % (Auto) 0.000 Neut % (Auto) 9.1 L Lymph % (Auto) 61.8 H Bulloch % (Auto) 27.3 H Eos % (Auto) 1.8 Baso % (Auto) 0.0 Absolute Neuts (auto) 0.1 L Absolute Lymphs (auto) 0.34 L Total Counted Not Reportable Differential Comment SCANNED Sodium 137 Potassium 2.8 L Chloride 104 Carbon Dioxide 25.0 Anion Gap 8 BUN 4 L Creatinine 0.74 Estim Creat Clear Calc 108.79 Est GFR (MDRD) Af Amer 123 Est GFR (MDRD) Non-Af 102 BUN/Creatinine Ratio 5.4 L Glucose 86 Calcium 8.1 L Assessment/Plan All Active Problems (Last Reviewed 05/10/18 @ 21:13 by Bucky Vega MD) Drug induced fever (Acute) Pancytopenia with fever (Acute) Pancytopenia (Acute) Pseudomonas aeruginosa infection (Acute) Non-pressure chronic ulcer of skin of other sites with fat layer exposed (Acute) Open wound of right chest wall with complication (Acute) Cellulitis of right breast (Acute) Cellulitis of chest wall (Acute) Abscess of chest wall (Acute) Cellulitis and abscess of other specified site (Acute) MRSA (methicillin resistant Staphylococcus aureus) infection (Acute) Abscess of right breast (Ruled-out) Acute pyelonephritis (Resolved) The patient is a 23 year old F with a significant history of depression, anxiety; right chest wound with MRSA; and who follows up with the wound center and presenting with 1 day history of fever and also found to have severe pancytopenia. Probable drug fever Reported temperature of 101.9; and 101 at emergency department. Patient on multiple antibiotics at home. Patient with a PICC line and wound. Due to concern of drug fever will hold vancomycin at this time. In exchange with vancomycin we will start daptomycin; and consult infectious disease for further recommendations. Continue ciprofloxacin and cefepime. Blood cultures x2 are pending Other differential diagnosis of her fever includes wound infection or bacteremia(especially as patient has a PICC). Pancytopenia likely due to antibiotics ED labs including a CBC and BMP were reviewed. WBC was 0.6; hemoglobin 10.1 and platelets 104. Absolute neutrophils was 100. Vancomycin changed as above. Daptomycin started. Continue ciprofloxacin and cefepime. Other differential diagnosis includes bacteremia, especially as patient has a PICC line; and wound infection. Peripheral smear ordered. Trend CBC. Tylenol as needed for fever. Infectious disease consult. Right lateral Chest wound proximal to right axillary region The wound does not look acutely infected., However she had debridement only yesterday. Review of old records shows that culture taken on abscess of right lateral chest on 04/18/2018 grew Pseudomonas aeruginosa. Review of old records shows that culture taken on abscess of right lateral chest/lateral breast abscess on 02/22/2018 grew MRSA Antibiotics as above. Patient is very familiar with Dr. Garibay; will consult Dr. Garibay Wound care consult. Home as needed oxycodone continued. Toradol ordered. Since patient's pain is not controlled with oxycodone, Toradol, Tylenol and reportedly morphine given at emergency department did not help her; as needed Dilaudid ordered. Elevated blood pressure without diagnosis of hypertension. At emergency department her blood pressure was severely elevated at 160/113 This could be secondary to pain. Hydralazine as needed ordered. Hypokalemia On admission potassium was 2.8. Patient was given 60 mEq potassium at emergency department Repeat BMP in a.m. Magnesium level and urine potassium ordered. Hypocalcemia On admission her calcium was 8.1. Mild hypocalcemia Albumin ordered. Depression/anxiety Diazepam and Wellbutrin continued DVT prophylaxis SCD ordered. Chemoprophylaxis not started because of thrombocytopenia. Code Visit Inpatient E&M: 20860 Init Hosp L3
[2018-05-10 19:57] VITALS: BP 121/63; PULSE 58; RESP 14
[2018-05-10] MEDS: Morphine 4 MG/ML Syringe IV (19:58)
[2018-05-10 20:21] VITALS: BMI 37.8
[2018-05-10 20:22] VITALS: PULSE 71
[2018-05-10 20:31] VITALS: BMI 37.5
[2018-05-10 20:33] VITALS: BP 136/72; PULSE 61; RESP 18; TEMP 37.7; O2SAT 98
[2018-05-10 21:53] LABS: Magnesium 1.7 mg/dL (1.6-2.6)
[2018-05-10 21:56] LABS: Albumin, Serum 3.5 g/dL (3.2-5.0)
[2018-05-10] MEDS: diazePAM 5 MG Tablet PO (22:17)
[2018-05-10] MEDS: Acetaminophen 325 MG Tablet PO (22:17)
[2018-05-10] MEDS: oxyCODONE 5 MG Tablet PO (22:24)
[2018-05-10] MEDS: 0.9% NaCl PICC Flush IV (22:25)
[2018-05-10 23:00] VITALS: PULSE 75
[2018-05-10 23:55] VITALS: O2SAT 98
[2018-05-11] VITALS (11 sets, daily range): BP systolic 92–148; BP diastolic 59–79; PULSE 62–83; RESP 16–18; TEMP 36.2–36.7; O2SAT 98–100
[2018-05-11] MEDS: 0.9% NaCl PICC Flush IV ×6 (01:22→23:04)
[2018-05-11] MEDS: Ketorolac 30 MG/ML Syringe IV ×2 (01:22→14:52)
[2018-05-11] MEDS: HYDROmorphone 1 MG/ML Syringe IV ×4 (03:34→23:04)
[2018-05-11 06:00] LABS: Hematocrit 31.1 % (37-47); Mean Corp Hgb Conc 32.2 g/gl (32-36); Mean Corpuscular Hgb 25.6 pg (27.0-32.0); Mean Corpuscular Volume 79.5 fL (81-99); Mean Platelet Vol. 11.4 fl (6.2-12.0); Platelet Count 129 K/mm3 (150-450); RBC Distribution Width CV 13.6 % (11.6-14.6); RBC Distribution Width SD 38.9 fl (35.1-43.9); Red Blood Count 3.91 M/mm3 (4.2-5.4)
[2018-05-11 06:07] LABS: Scan Indicated on CBC? Y/N YES- FLAGS NOTED; White Blood Count 1.5 K/mm3 (4.4-11.0)
[2018-05-11 06:14] LABS: Homocysteine 6.3 umol/L (3.2-10.7)
[2018-05-11 06:16] LABS: Anion Gap 10 (5-15); BUN 5 mg/dL (7-18); Calcium,Total 8.4 mg/dL (8.5-10.1); Chloride 107 mmol/L (98-107); EST Glomerular Filtration Rate 159 mL/min (>60); Est Glom Filt Rate - Afr Amer 192 mL/min (>60); Estimated Creatinine Clearance 161.02 ml/min; Glucose 84 mg/dL (74-106); Potassium 3.4 mmol/L (3.5-5.1); Sodium Level 141 mmol/L (136-145)
[2018-05-11 09:00] LABS: Vitamin B12 419 pg/mL (211-911)
[2018-05-11] MEDS: buPROPion (XL) 300 MG TABLET.XL PO (10:09)
[2018-05-11] MEDS: Ciprofloxacin 250 MG Tablet 750 MG PO (10:09)
--- NOTE | 2018-05-11 10:09 | NURSING ---
wound photo: right chest
[2018-05-11 11:18] LABS: AST(SGOT) 32 U/L (15-37); Alanine Aminotransfer ALT/SGPT 26 U/L (13-56); Albumin, Serum 3.3 g/dL (3.2-5.0); Alkaline Phosphatase 63 U/L (45-117); Bilirubin, Direct 0.08 mg/dL (0.00-0.30); Globulin 3.9 g/dL (2.2-4.2); Protein, Total 7.2 g/dL (6.4-8.2)
[2018-05-11] MEDS: diazePAM 5 MG Tablet PO (11:23)
[2018-05-11 11:32] LABS: Vancomycin, Random Level 4.6 ug/mL (0.0-15.0)
[2018-05-11 11:54] LABS: M R Staph aureus DNA By PCR Negative (Negative); Probe Check PASS; Specimen Processing Control PASS; Staph aureus DNA By PCR NEGATIVE (Negative)
--- NOTE | 2018-05-11 12:42 | CON.PCM_ITS ---
Subjective Date of Service:: 05/11/18 Chief Complaint: Pancytopenia History of Present Illness: Ms. Qing Solares is a pleasant 23 year old woman who developed a small lesion in the right axilla February 2018 which led to abscess, multiple procedures and several admissions. Wound found to be associated with MRSA infection. PICC line placed and began IV vancomycin, cefepime and PO Cipro approximately 04/19/18 in the home setting. Since that time she experienced fatigue and intermittent nausea but afebrile until 05/09/18. Subsequently presented to [facility] ED and found to be pancytopenic (new finding) with an ANC of 0.1. Admitted for management. Antimicrobial therapy modified to include daptomycin and meropenem, previous atb discontinued. Patient states she has been told she was anemic at times in the past. LMP 04/27/18 approximately. Does not take any form of iron supplementation. Oth erwise denies any episodes of overt bleeding but admits to bruising easily. Past Medical History: Chronic Problems (Last Reviewed 05/10/18 @ 21:13 by Bucky Vega MD) BMI 38.0-38.9,adult (Chronic) Depression (Chronic) Past Medical/Surgical History: Past Medical History - Most Recent Inpatient Visit Past Medical History Start: 05/10/18 20:15 Text: Status: Complete Freq: ONCE Protocol: Document 05/10/18 20:21 [facility] [place] (Rec: 05/10/18 20:25 [facility] [place] [id number]) BMI Required to complete PMH What is Patient's BMI 37.8 Past Medical History Unable History Recalled No Query Text:Pt Unable/Family Not Present Neurologic Medical History Hx Stroke/TIA No Hx Dementia/Alzheimer's No Hx Parkinson's Disease No Hx Seizures No Hx Multiple Sclerosis No Hx Migraines No Cardiac Medical History VTE Present on Admission No Hx of Deep Vein Thrombosis/VTE/PE No Hx Hypertension Yes: induced Hx Chest Pain/Angina No Hx Heart Attack No Hx Cardiac Surgery/Stents/Etc. No Hx Heart Failure No Hx Pacemaker/AICD No Hx Irregular Heartbeat and/or Afib No Hx Anticoagulant Therapy No Query Text:(Coumadin, Aspirin, Plavix, Xarelto, etc.) Hx Pain in Legs when Walking/Leg Cramps No Respiratory Medical History Hx COPD No Hx Emphysema No Hx Smoking No Smoking Status Never smoker Hx Smoking Exposure Yes Hx Tobacco Use in last 12 months No Hx of Pipe Smoking No Hx Sleep Apnea No CPAP No BIPAP No Do you snore loudly (louder than talking No or can be heard through closed doors)? Do you often feel tired/ fatigued/ Yes sleepy during daytime? Has anyone observed you stop breathing No during sleep? STOP Results Positive GI Medical History Hx Ulcer No Hx Hepatitis No Hx Cirrhosis No Hx GI Bleed No Hx Unplanned Weight Loss No Genitourinary Medical History Indwelling Catheter in Place on Arrival/ No Admission Hx Renal Disease No: hx of kidney stones Hx Dialysis No Musculoskeletal History Hx Arthritis Yes: pelvis and spine Hx Rheumatoid Arthritis No Endocrine Medical History Hx Diabetes No Hx Thyroid Disease No Hematologic Medical History Hx of Blood Transfusion No Hx of Transfusion in last 3 Months No Ever experience any problems with No transfusion(s)? Hx of Preganancy in last 3 Months No Nurse Filling Out Transfusion & SGESSEL Questions: Date: 05/10/18 Time: 20:24 Psycho/Social Medical History Hx Depression Yes: on medication Hx Anxiety Yes Hx Behavior Disorder No Hx Alcohol Use No Hx Substance Use No Other Medical History Hx Blood Disorders No Hx Anemia No Hx Cancer No Hx Drug Resistant Organism Yes: mrsa Wound/Pressure Injury Present on Arrival Yes: to be assessed per /Admission primary rn Query Text:If yes, chart assessment in Shift/Clinical Findings Central Line/PICC/VAD Present on Arrival Yes /Admission Antibiotics within last 7 days? Yes Name of Antibiotic (Include dose/# days cefipime and vancomycin taken if known) Last day ATB taken 05/10/18 Risk for Readmission Number of Risk Factors 3 At Risk for Readmission Patient is At Risk For Readmission Patient is eligible for Call Back Y Past Medical History (Last Reviewed 05/10/18 @ 21:13 by Bucky Vega MD) Anxiety and depression (Acute) Back problem (Acute) Gallstones (Acute) Kidney stones (Acute) Past Surgical History (Last Reviewed 05/10/18 @ 21:13 by Bucky Vega MD) History of appendectomy (Acute) History of back surgery (Acute) History of tubal ligation (Acute) Maternal Family History: Family History (Last Reviewed 05/10/18 @ 21:13 by Bucky Vega MD) Mother Diabetes Hypertension Father Hypertension Grandmother Diabetes Family History: No pertinent history Paternal Family History: Family History (Last Reviewed 05/10/18 @ 21:13 by Bucky Vega MD) Mother Diabetes Hypertension Father Hypertension Grandmother Diabetes Family History: No pertinent history - Social History Lives: With Family Smoking Status: Never smoker Alcohol: None Allergies/Adverse Reactions: Allergy/AdvReac Type Severity Reaction Status Date / Time No Known Allergies Allergy Verified 05/10/18 16:31 Review of Systems Constitutional:: Reports: Weakness, Fatigue. Denies: Fever, Sweats, Weight loss, Appetite change, Chills Cardiovascular:: Denies: Chest pain, Palpitations, Dyspnea on exertion, Orthopnea, PND, Shortness of breath Respiratory: Denies: Cough, Hemoptysis, Shortness of Breath, Wheezing Gastrointestinal:: Reports: Nausea - see HPI. Denies: Abdominal pain, Vomiting, Diarrhea, Constipation, Melena, Hematochezia Genitourinary: Denies: Dysuria, Hematuria, Urinary frequency, Flank pain Musculoskeletal:: Denies: Back pain, Myalgia, Arthralgia Skin: Denies: Rash, Skin Changes, Wounds Neurological:: Denies: Headache, Dizziness, Numbness, Tingling, Visual changes, Tinnitus, Hearing loss Psychiatric: Denies: Anxiety, Depression, Homicidal Ideations, Suicidal Ideations Vital Signs Height 5 ft 6 in Weight: 232 lb 6.4 oz Weight in Pounds 232.4 lbs Pulse Ox 100 Temperature 97.7 F Pulse Rate 82 Respiratory Rate 17 Blood Pressure [BP] 109/77 Blood Pressure 92/59 Blood Pressure Position [BP] Semi-Fowlers Blood Pressure Position Semi-Fowlers - Physical Exam General: Alert, Oriented x3, No apparent distress HEENT: Atraumatic, Normocephalic Oropharynx:: Negative for: Dry mucosa, Ulcerated lesions Neck:: Supple, Trachea midline. Negative for: JVD, bilateral Cardiac:: Regular rate, Regular rhythm, Normal S1, Normal S2. Negative for: Murmur Lungs: Clear to auscultation, Excusion symmetrical. Negative for: Rhonchi, Wheezes Abdomen:: Bowel sounds x 4, Soft, Non-tender, Non-distended. Negative for: Hepatosplenomegaly Extremities:: Negative for: Cyanosis, Edema Neurological: Neuro grossly intact Skin:: Ecchymosis - BLE in various stages of healing, - - Right axilla/chest wound not visualized- covered with DSD and TABITHA wrap. Negative for: Lesions, Rash, Petechiae Psychiatric:: Appropriate affect, Euthymic Lymphatics:: Negative for: Cervical lymphadenopathy, Supraclavicular lymphadenopathy Laboratory Data: Laboratory Tests 05/11/18 05/11/18 05/11/18 Range/Units 09:35 05:20 05:20 WBC (4.4-11.0) K/mm3 RBC (4.2-5.4) M/mm3 Hgb (12.0-15.0) g/dl Hct (37-47) % MCV (81-99) fL MCH (27.0-32.0) pg MCHC (32-36) g/gl RDW (11.6-14.6) % RDW Differential (35.1-43.9) fl Plt Count (150-450) K/mm3 MPV (6.2-12.0) fl Immature Gran % (Auto) (0.0-0.9) % Neut % (Auto) (47-70) % Lymph % (Auto) (19-41) % Schleicher % (Auto) (0-10) % Eos % (Auto) (0-5) % Baso % (Auto) (0-1) % Absolute Neuts (auto) (2.0-7.7) X10^3/uL Absolute Lymphs (auto) (0.83-4.51) X10^3/ul Total Counted Differential Comment Diff Path Review Sodium (136-145) mmol/L Potassium (3.5-5.1) mmol/L Chloride (98-107) mmol/L Carbon Dioxide (21.0-32.0) mmol/L Anion Gap (5-15) BUN (7-18) mg/dL Creatinine (0.55-1.02) mg/dL Estim Creat Clear Calc ml/min Est GFR (MDRD) Af Amer (>60) mL/min Est GFR (MDRD) Non-Af (>60) mL/min BUN/Creatinine Ratio (10-20) RATIO Glucose (74-106) mg/dL Calcium (8.5-10.1) mg/dL Magnesium (1.6-2.6) mg/dL Total Bilirubin 0.30 (0.20-1.00) mg/dL Direct Bilirubin 0.08 (0.00-0.30) mg/dL AST 32 (15-37) U/L ALT 26 (13-56) U/L Alkaline Phosphatase 63 (45-117) U/L Total Protein 7.2 (6.4-8.2) g/dL Albumin 3.3 (3.2-5.0) g/dL Globulin 3.9 (2.2-4.2) g/dL Vitamin B12 (211-911) pg/mL Folate (3.1-55.4) ng/mL Homocysteine (3.2-10.7) umol/L Urine Potassium (Not Establ.) mmol/L Random Vancomycin 4.6 (0.0-15.0) ug/mL S.aureus Protein A PCR NEGATIVE (Negative) MRSA (PCR) Negative (Negative) Miscellaneous Test 05/11/18 05/11/18 05/11/18 Range/Units 05:20 05:20 05:20 WBC (4.4-11.0) K/mm3 RBC (4.2-5.4) M/mm3 Hgb (12.0-15.0) g/dl Hct (37-47) % MCV (81-99) fL MCH (27.0-32.0) pg MCHC (32-36) g/gl RDW (11.6-14.6) % RDW Differential (35.1-43.9) fl Plt Count (150-450) K/mm3 MPV (6.2-12.0) fl Immature Gran % (Auto) (0.0-0.9) % Neut % (Auto) (47-70) % Lymph % (Auto) (19-41) % Schleicher % (Auto) (0-10) % Eos % (Auto) (0-5) % Baso % (Auto) (0-1) % Absolute Neuts (auto) (2.0-7.7) X10^3/uL Absolute Lymphs (auto) (0.83-4.51) X10^3/ul Total Counted Differential Comment Diff Path Review Sodium 141 (136-145) mmol/L Potassium 3.4 L (3.5-5.1) mmol/L Chloride 107 (98-107) mmol/L Carbon Dioxide 24.0 (21.0-32.0) mmol/L Anion Gap 10 (5-15) BUN 5 L (7-18) mg/dL Creatinine 0.50 L (0.55-1.02) mg/dL Estim Creat Clear Calc 161.02 ml/min Est GFR (MDRD) Af Amer 192 (>60) mL/min Est GFR (MDRD) Non-Af 159 (>60) mL/min BUN/Creatinine Ratio 10.0 (10-20) RATIO Glucose 84 (74-106) mg/dL Calcium 8.4 L (8.5-10.1) mg/dL Magnesium (1.6-2.6) mg/dL Total Bilirubin (0.20-1.00) mg/dL Direct Bilirubin (0.00-0.30) mg/dL AST (15-37) U/L ALT (13-56) U/L Alkaline Phosphatase (45-117) U/L Total Protein (6.4-8.2) g/dL Albumin (3.2-5.0) g/dL Globulin (2.2-4.2) g/dL Vitamin B12 419 (211-911) pg/mL Folate 15.30 (3.1-55.4) ng/mL Homocysteine 6.3 (3.2-10.7) umol/L Urine Potassium (Not Establ.) mmol/L Random Vancomycin (0.0-15.0) ug/mL S.aureus Protein A PCR (Negative) MRSA (PCR) (Negative) Miscellaneous Test 05/11/18 05/11/18 05/10/18 Range/Units 05:20 05:05 18:05 WBC 1.5 L (4.4-11.0) K/mm3 RBC 3.91 L (4.2-5.4) M/mm3 Hgb 10.0 L (12.0-15.0) g/dl Hct 31.1 L (37-47) % MCV 79.5 L (81-99) fL MCH 25.6 L (27.0-32.0) pg MCHC 32.2 (32-36) g/gl RDW 13.6 (11.6-14.6) % RDW Differential 38.9 (35.1-43.9) fl Plt Count 129 L (150-450) K/mm3 MPV 11.4 (6.2-12.0) fl Immature Gran % (Auto) (0.0-0.9) % Neut % (Auto) (47-70) % Lymph % (Auto) (19-41) % Schleicher % (Auto) (0-10) % Eos % (Auto) (0-5) % Baso % (Auto) (0-1) % Absolute Neuts (auto) (2.0-7.7) X10^3/uL Absolute Lymphs (auto) (0.83-4.51) X10^3/ul Total Counted Differential Comment Diff Path Review May foll Sodium (136-145) mmol/L Potassium (3.5-5.1) mmol/L Chloride (98-107) mmol/L Carbon Dioxide (21.0-32.0) mmol/L Anion Gap (5-15) BUN (7-18) mg/dL Creatinine (0.55-1.02) mg/dL Estim Creat Clear Calc ml/min Est GFR (MDRD) Af Amer (>60) mL/min Est GFR (MDRD) Non-Af (>60) mL/min BUN/Creatinine Ratio (10-20) RATIO Glucose (74-106) mg/dL Calcium (8.5-10.1) mg/dL Magnesium (1.6-2.6) mg/dL Total Bilirubin (0.20-1.00) mg/dL Direct Bilirubin (0.00-0.30) mg/dL AST (15-37) U/L ALT (13-56) U/L Alkaline Phosphatase (45-117) U/L Total Protein (6.4-8.2) g/dL Albumin 3.5 (3.2-5.0) g/dL Globulin (2.2-4.2) g/dL Vitamin B12 (211-911) pg/mL Folate (3.1-55.4) ng/mL Homocysteine (3.2-10.7) umol/L Urine Potassium 19.0 (Not Establ.) mmol/L Random Vancomycin (0.0-15.0) ug/mL S.aureus Protein A PCR (Negative) MRSA (PCR) (Negative) Miscellaneous Test 05/10/18 05/10/18 05/10/18 Range/Units 18:05 18:05 18:05 WBC (4.4-11.0) K/mm3 RBC (4.2-5.4) M/mm3 Hgb (12.0-15.0) g/dl Hct (37-47) % MCV (81-99) fL MCH (27.0-32.0) pg MCHC (32-36) g/gl RDW (11.6-14.6) % RDW Differential (35.1-43.9) fl Plt Count (150-450) K/mm3 MPV (6.2-12.0) fl Immature Gran % (Auto) (0.0-0.9) % Neut % (Auto) (47-70) % Lymph % (Auto) (19-41) % Schleicher % (Auto) (0-10) % Eos % (Auto) (0-5) % Baso % (Auto) (0-1) % Absolute Neuts (auto) (2.0-7.7) X10^3/uL Absolute Lymphs (auto) (0.83-4.51) X10^3/ul Total Counted Differential Comment Diff Path Review Sodium 137 (136-145) mmol/L Potassium 2.8 L (3.5-5.1) mmol/L Chloride 104 (98-107) mmol/L Carbon Dioxide 25.0 (21.0-32.0) mmol/L Anion Gap 8 (5-15) BUN 4 L (7-18) mg/dL Creatinine 0.74 (0.55-1.02) mg/dL Estim Creat Clear Calc 108.79 ml/min Est GFR (MDRD) Af Amer 123 (>60) mL/min Est GFR (MDRD) Non-Af 102 (>60) mL/min BUN/Creatinine Ratio 5.4 L (10-20) RATIO Glucose 86 (74-106) mg/dL Calcium 8.1 L (8.5-10.1) mg/dL Magnesium 1.7 (1.6-2.6) mg/dL Total Bilirubin (0.20-1.00) mg/dL Direct Bilirubin (0.00-0.30) mg/dL AST (15-37) U/L ALT (13-56) U/L Alkaline Phosphatase (45-117) U/L Total Protein (6.4-8.2) g/dL Albumin (3.2-5.0) g/dL Globulin (2.2-4.2) g/dL Vitamin B12 (211-911) pg/mL Folate (3.1-55.4) ng/mL Homocysteine (3.2-10.7) umol/L Urine Potassium (Not Establ.) mmol/L Random Vancomycin (0.0-15.0) ug/mL S.aureus Protein A PCR (Negative) MRSA (PCR) (Negative) Miscellaneous Test Cancelled 05/10/18 Range/Units 18:05 WBC 0.6 L* (4.4-11.0) K/mm3 RBC 4.04 L (4.2-5.4) M/mm3 Hgb 10.1 L (12.0-15.0) g/dl Hct 32.1 L (37-47) % MCV 79.5 L (81-99) fL MCH 25.0 L (27.0-32.0) pg MCHC 31.5 L (32-36) g/gl RDW 13.7 (11.6-14.6) % RDW Differential 39.5 (35.1-43.9) fl Plt Count 104 L (150-450) K/mm3 MPV 10.7 (6.2-12.0) fl Immature Gran % (Auto) 0.000 (0.0-0.9) % Neut % (Auto) 9.1 L (47-70) % Lymph % (Auto) 61.8 H (19-41) % Schleicher % (Auto) 27.3 H (0-10) % Eos % (Auto) 1.8 (0-5) % Baso % (Auto) 0.0 (0-1) % Absolute Neuts (auto) 0.1 L (2.0-7.7) X10^3/uL Absolute Lymphs (auto) 0.34 L (0.83-4.51) X10^3/ul Total Counted Not Reportable Differential Comment SCANNED Diff Path Review May foll Sodium (136-145) mmol/L Potassium (3.5-5.1) mmol/L Chloride (98-107) mmol/L Carbon Dioxide (21.0-32.0) mmol/L Anion Gap (5-15) BUN (7-18) mg/dL Creatinine (0.55-1.02) mg/dL Estim Creat Clear Calc ml/min Est GFR (MDRD) Af Amer (>60) mL/min Est GFR (MDRD) Non-Af (>60) mL/min BUN/Creatinine Ratio (10-20) RATIO Glucose (74-106) mg/dL Calcium (8.5-10.1) mg/dL Magnesium (1.6-2.6) mg/dL Total Bilirubin (0.20-1.00) mg/dL Direct Bilirubin (0.00-0.30) mg/dL AST (15-37) U/L ALT (13-56) U/L Alkaline Phosphatase (45-117) U/L Total Protein (6.4-8.2) g/dL Albumin (3.2-5.0) g/dL Globulin (2.2-4.2) g/dL Vitamin B12 (211-911) pg/mL Folate (3.1-55.4) ng/mL Homocysteine (3.2-10.7) umol/L Urine Potassium (Not Establ.) mmol/L Random Vancomycin (0.0-15.0) ug/mL S.aureus Protein A PCR (Negative) MRSA (PCR) (Negative) Miscellaneous Test Assessment and Plan 23 year old woman with right axilla/chest wound infection, left upper extremity PICC line and pancytopenia. 1. Pancytopenia- evidenced by ANC 0.1, Hgb 10 and platelet 129,000 on admission. Acquired, likely drug induced. Defer to infectious disease as to which antibiotic therapy best choice given context of pancytopenia. Blood cultures are pending. WBC modestly improved on labs dated today. Orders placed to run a differential on that specimen. I reviewed peripheral smear with pathologist, Dr. Muller. No blasts are visualized. Advise Granix 480 mcg daily until neutropenia resolves. Orders placed. Advise CBC with diff daily. Mild anemia has been present intermittently since . Not uncommon as she is of childbearing age, LMP 04/27/18, describes as typically heavy. Iron studies ordered, although anticipate ferritin may be elevated given current infectious process. Deficiency may be a contributing factor. Case discussed with Dr. Ceballos, who was in agreement with the aforementioned plan. Cassandra Balderas, MSN, THERAPEUTIC ASSISTANT-C, AOCNP Medications: Prescriptions This Visit Medication Instructions Recorded Cefepime HCl [Maxipime] 2 gm IV Q12H 05/10/18 Ciprofloxacin [Cipro] 750 mg PO DAILY 05/10/18 Vancomycin IV 1,500 mg IV Q12H 05/10/18 buPROPion XL [Wellbutrin Xl] 300 mg PO DAILY 05/10/18 Escitalopram Oxalate [Lexapro] 5 mg PO DAILY 05/11/18 Medications Added to Medication List This Visit Category Date Time Status Meropenem [Merrem] 1 gm Med 05/11/18 14:00 Active 0.9% Normal Saline 100 ml IV Q8 buPROPion XL [Wellbutrin XL] Med 05/11/18 10:00 Active 300 mg PO DAILY Primary Care Provider: Dario Poe Referring Provider: - Problem List (1) Pancytopenia with fever Status: Acute (2) Open wound of right chest wall with complication Status: Acute Qualifiers: Encounter type: sequela Qualified Code(s): S21.101S - Unspecified open wound of right front wall of thorax without penetration into thoracic cavity, sequela
[2018-05-11 13:07] LABS: Pathologist Review Reviewed
[2018-05-11 13:09] LABS: Pathologist Review Reviewed
--- NOTE | 2018-05-11 13:20 | CASEMGMT ---
This ÁLVARO MASTERSON received call from Birgit Negrete from [facility], phone [phone], and she states that pt is independent at home with PICC line infusions for Cefepime but has [facility]. Elva REA CM
--- NOTE | 2018-05-11 13:33 | PN_ITS ---
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 RN checked temperature at that time and patient afebrile. Patient voices frustration as wound has been ongoing since February. - Physical Exam General: Alert, Oriented x3, Cooperative, No apparent distress HEENT: Atraumatic, PERRLA, EOMI, Normocephalic Neck: Supple, No JVD, Negative Carotid Bruits Lungs: Clear to auscultation, Normal air movement Cardiovascular: Regular rate, Regular Rhythm, Normal S1, Normal S2, No murmurs Abdomen: Bowel Sounds Present, Soft, Non Tender, Non-Distended, Obese Extremities: No clubbing, No cyanosis, No edema, Capillary Refill Less than 3 Seconds Skin: - - Right lateral chest wound with dressing intact. Musculoskeletal: No Tenderness to Palpation of Joints or Extremities Neurological: Cranial nerves II-XII grossly intact, Neuro grossly intact Psych/Mental Status: Normal Affect, Appropriate Vital Signs Temp Pulse Resp BP Pulse Ox 97.7 F L 82 17 109/77 100 05/11/18 08:12 05/11/18 11:37 05/11/18 08:12 05/11/18 10:07 05/11/18 08:12 Oxygen Delivery Method Room Air Weight: 232 lb 6.228 oz Body Mass Index (BMI) 37.5 Intake and Output for Last 24 Hours 05/09/18 05/10/18 05/11/18 23:59 23:59 23:59 Intake Total 1468 / 1468 Balance 1468 / 1468 Laboratory Tests Past 24 Hrs 05/10/18 05/10/18 05/10/18 18:05 18:05 18:05 WBC 0.6 L* RBC 4.04 L Hgb 10.1 L Hct 32.1 L MCV 79.5 L MCH 25.0 L MCHC 31.5 L RDW 13.7 RDW Differential 39.5 Plt Count 104 L MPV 10.7 Immature Gran % (Auto) 0.000 Neut % (Auto) 9.1 L Lymph % (Auto) 61.8 H [place] % (Auto) 27.3 H Eos % (Auto) 1.8 Baso % (Auto) 0.0 Absolute Neuts (auto) 0.1 L Absolute Lymphs (auto) 0.34 L Total Counted Not Reportable Differential Comment SCANNED Diff Path Review Reviewed Immature Plt Fraction Retic Count Sodium 137 Potassium 2.8 L Chloride 104 Carbon Dioxide 25.0 Anion Gap 8 BUN 4 L Creatinine 0.74 Estim Creat Clear Calc 108.79 Est GFR (MDRD) Af Amer 123 Est GFR (MDRD) Non-Af 102 BUN/Creatinine Ratio 5.4 L Glucose 86 Calcium 8.1 L Magnesium Total Bilirubin Direct Bilirubin AST ALT Alkaline Phosphatase Total Protein Albumin Globulin Vitamin B12 Methylmalonic Acid Folate Homocysteine Urine Potassium Random Vancomycin S.aureus Protein A PCR MRSA (PCR) Miscellaneous Test Cancelled 05/10/18 05/10/18 05/11/18 18:05 18:05 05:05 WBC RBC Hgb Hct MCV MCH MCHC RDW RDW Differential Plt Count MPV Immature Gran % (Auto) Neut % (Auto) Lymph % (Auto) [place] % (Auto) Eos % (Auto) Baso % (Auto) Absolute Neuts (auto) Absolute Lymphs (auto) Total Counted Differential Comment Diff Path Review Immature Plt Fraction Retic Count Sodium Potassium Chloride Carbon Dioxide Anion Gap BUN Creatinine Estim Creat Clear Calc Est GFR (MDRD) Af Amer Est GFR (MDRD) Non-Af BUN/Creatinine Ratio Glucose Calcium Magnesium 1.7 Total Bilirubin Direct Bilirubin AST ALT Alkaline Phosphatase Total Protein Albumin 3.5 Globulin Vitamin B12 Methylmalonic Acid Folate Homocysteine Urine Potassium 19.0 Random Vancomycin S.aureus Protein A PCR MRSA (PCR) Miscellaneous Test 05/11/18 05/11/18 05/11/18 05:20 05:20 05:20 WBC 1.5 L RBC 3.91 L Hgb 10.0 L Hct 31.1 L MCV 79.5 L MCH 25.6 L MCHC 32.2 RDW 13.6 RDW Differential 38.9 Plt Count 129 L MPV 11.4 Immature Gran % (Auto) Neut % (Auto) Lymph % (Auto) [place] % (Auto) Eos % (Auto) Baso % (Auto) Absolute Neuts (auto) Absolute Lymphs (auto) Total Counted Differential Comment Diff Path Review Reviewed Immature Plt Fraction Retic Count Sodium 141 Potassium 3.4 L Chloride 107 Carbon Dioxide 24.0 Anion Gap 10 BUN 5 L Creatinine 0.50 L Estim Creat Clear Calc 161.02 Est GFR (MDRD) Af Amer 192 Est GFR (MDRD) Non-Af 159 BUN/Creatinine Ratio 10.0 Glucose 84 Calcium 8.4 L Magnesium Total Bilirubin Direct Bilirubin AST ALT Alkaline Phosphatase Total Protein Albumin Globulin Vitamin B12 419 Methylmalonic Acid Folate 15.30 Homocysteine Urine Potassium Random Vancomycin S.aureus Protein A PCR MRSA (PCR) Miscellaneous Test 05/11/18 05/11/18 05/11/18 05:20 05:20 05:20 WBC RBC Hgb Hct MCV MCH MCHC RDW RDW Differential Plt Count MPV Immature Gran % (Auto) Neut % (Auto) Lymph % (Auto) [place] % (Auto) Eos % (Auto) Baso % (Auto) Absolute Neuts (auto) Absolute Lymphs (auto) Total Counted Differential Comment Diff Path Review Immature Plt Fraction Retic Count Sodium Potassium Chloride Carbon Dioxide Anion Gap BUN Creatinine Estim Creat Clear Calc Est GFR (MDRD) Af Amer Est GFR (MDRD) Non-Af BUN/Creatinine Ratio Glucose Calcium Magnesium Total Bilirubin Direct Bilirubin AST ALT Alkaline Phosphatase Total Protein Albumin Globulin Vitamin B12 Methylmalonic Acid Pending Folate Homocysteine 6.3 Urine Potassium Random Vancomycin 4.6 S.aureus Protein A PCR MRSA (PCR) Miscellaneous Test 05/11/18 05/11/18 05/11/18 05:20 05:20 09:35 WBC Pending RBC Pending Hgb Pending Hct Pending MCV Pending MCH Pending MCHC Pending RDW Pending RDW Differential Pending Plt Count Pending MPV Immature Gran % (Auto) Neut % (Auto) Pending Lymph % (Auto) [place] % (Auto) Eos % (Auto) Baso % (Auto) Absolute Neuts (auto) Pending Absolute Lymphs (auto) Total Counted Pending Differential Comment Diff Path Review Immature Plt Fraction Pending Retic Count Pending Sodium Potassium Chloride Carbon Dioxide Anion Gap BUN Creatinine Estim Creat Clear Calc Est GFR (MDRD) Af Amer Est GFR (MDRD) Non-Af BUN/Creatinine Ratio Glucose Calcium Magnesium Total Bilirubin 0.30 Direct Bilirubin 0.08 AST 32 ALT 26 Alkaline Phosphatase 63 Total Protein 7.2 Albumin 3.3 Globulin 3.9 Vitamin B12 Methylmalonic Acid Folate Homocysteine Urine Potassium Random Vancomycin S.aureus Protein A PCR NEGATIVE MRSA (PCR) Negative Miscellaneous Test Medical Necessity - Tobacco Use Smoking Status: Never smoker Assessment/Plan All Active Problems (Last Reviewed 05/10/18 @ 21:13 by Bucky Vega MD) Drug induced fever (Acute) Pancytopenia with fever (Acute) Pancytopenia (Acute) Pseudomonas aeruginosa infection (Acute) Non-pressure chronic ulcer of skin of other sites with fat layer exposed (Acute) Open wound of right chest wall with complication (Acute) Cellulitis of right breast (Acute) Cellulitis of chest wall (Acute) Abscess of chest wall (Acute) Cellulitis and abscess of other specified site (Acute) MRSA (methicillin resistant Staphylococcus aureus) infection (Acute) Abscess of right breast (Ruled-out) Acute pyelonephritis (Resolved) 1. Suspected drug-induced pancytopenia with associated fever-oncology and ID consulted. Blood cultures pending. Started on Granix 480 mcg daily per oncology. Trend CBC. Antibiotics changed to meropenem and daptomycin. Tylenol as needed for fever. Complete iron studies. 2. Right lateral chest wound, ongoing-previous cultures positive for Pseudomonas and MRSA. Debridement x2 by Dr. Garibay. Appears improved from prior, does not appear acutely infected. Dr. Garibay on consult. ID consulted. PRN pain regimen. Wound RN consult. Dressing changes per wound RN and Dr. Garibay. Patient has PICC line in place. She has been on IV vancomycin, cefepime and Cipro prior to admission. Antibiotics changed to meropenem and daptomycin due to pancytopenia. 3. Hypokalemia/hypocalcemia-replaced. Trend BMP. 4. Anxiety/depression-continue bupropion and Lexapro regimen. 5. Obesity-encourage diet lifestyle modifications. DVT prophylaxis- SCDs. This patient was seen by ZENOBIA Rothman under the supervision of Dr. Almaraz. <Tiago Almaraz F - Last Filed: 05/11/18 17:15> - Physical Exam Vital Signs Temp Pulse Resp BP Pulse Ox 98.1 F 79 18 119/79 98 05/11/18 14:36 05/11/18 14:36 05/11/18 14:36 05/11/18 14:36 05/11/18 14:36 Oxygen Delivery Method Room Air Weight: 232 lb 6.228 oz Body Mass Index (BMI) 37.5 Intake and Output for Last 24 Hours 05/09/18 05/10/18 05/11/18 23:59 23:59 23:59 Intake Total 1468 / 1468 Balance 1468 / 1468 Laboratory Tests Past 24 Hrs 05/10/18 05/10/18 05/10/18 18:05 18:05 18:05 WBC 0.6 L* RBC 4.04 L Hgb 10.1 L Hct 32.1 L MCV 79.5 L MCH 25.0 L MCHC 31.5 L RDW 13.7 RDW Differential 39.5 Plt Count 104 L MPV 10.7 Immature Gran % (Auto) 0.000 Neut % (Auto) 9.1 L Lymph % (Auto) 61.8 H [place] % (Auto) 27.3 H Eos % (Auto) 1.8 Baso % (Auto) 0.0 Absolute Neuts (auto) 0.1 L Absolute Lymphs (auto) 0.34 L Total Counted Not Reportable Differential Comment SCANNED Diff Path Review Reviewed Immature Plt Fraction Retic Count Immature Retic Fraction Retic Hgb Equivalent Sodium 137 Potassium 2.8 L Chloride 104 Carbon Dioxide 25.0 Anion Gap 8 BUN 4 L Creatinine 0.74 Estim Creat Clear Calc 108.79 Est GFR (MDRD) Af Amer 123 Est GFR (MDRD) Non-Af 102 BUN/Creatinine Ratio 5.4 L Glucose 86 Calcium 8.1 L Magnesium Iron TIBC Iron Saturation Ferritin Total Bilirubin Direct Bilirubin AST ALT Alkaline Phosphatase Total Protein Albumin Globulin Vitamin B12 Methylmalonic Acid Folate Homocysteine Urine Potassium Random Vancomycin S.aureus Protein A PCR MRSA (PCR) Miscellaneous Test Cancelled 05/10/18 05/10/18 05/11/18 18:05 18:05 05:05 WBC RBC Hgb Hct MCV MCH MCHC RDW RDW Differential Plt Count MPV Immature Gran % (Auto) Neut % (Auto) Lymph % (Auto) [place] % (Auto) Eos % (Auto) Baso % (Auto) Absolute Neuts (auto) Absolute Lymphs (auto) Total Counted Differential Comment Diff Path Review Immature Plt Fraction Retic Count Immature Retic Fraction Retic Hgb Equivalent Sodium Potassium Chloride Carbon Dioxide Anion Gap BUN Creatinine Estim Creat Clear Calc Est GFR (MDRD) Af Amer Est GFR (MDRD) Non-Af BUN/Creatinine Ratio Glucose Calcium Magnesium 1.7 Iron TIBC Iron Saturation Ferritin Total Bilirubin Direct Bilirubin AST ALT Alkaline Phosphatase Total Protein Albumin 3.5 Globulin Vitamin B12 Methylmalonic Acid Folate Homocysteine Urine Potassium 19.0 Random Vancomycin S.aureus Protein A PCR MRSA (PCR) Miscellaneous Test 05/11/18 05/11/18 05/11/18 05:20 05:20 05:20 WBC 1.5 L RBC 3.91 L Hgb 10.0 L Hct 31.1 L MCV 79.5 L MCH 25.6 L MCHC 32.2 RDW 13.6 RDW Differential 38.9 Plt Count 129 L MPV 11.4 Immature Gran % (Auto) Neut % (Auto) Lymph % (Auto) [place] % (Auto) Eos % (Auto) Baso % (Auto) Absolute Neuts (auto) Absolute Lymphs (auto) Total Counted Differential Comment Diff Path Review Reviewed Immature Plt Fraction Retic Count Immature Retic Fraction Retic Hgb Equivalent Sodium 141 Potassium 3.4 L Chloride 107 Carbon Dioxide 24.0 Anion Gap 10 BUN 5 L Creatinine 0.50 L Estim Creat Clear Calc 161.02 Est GFR (MDRD) Af Amer 192 Est GFR (MDRD) Non-Af 159 BUN/Creatinine Ratio 10.0 Glucose 84 Calcium 8.4 L Magnesium Iron TIBC Iron Saturation Ferritin Total Bilirubin Direct Bilirubin AST ALT Alkaline Phosphatase Total Protein Albumin Globulin Vitamin B12 419 Methylmalonic Acid Folate 15.30 Homocysteine Urine Potassium Random Vancomycin S.aureus Protein A PCR MRSA (PCR) Miscellaneous Test 05/11/18 05/11/18 05/11/18 05:20 05:20 05:20 WBC RBC Hgb Hct MCV MCH MCHC RDW RDW Differential Plt Count MPV Immature Gran % (Auto) Neut % (Auto) Lymph % (Auto) [place] % (Auto) Eos % (Auto) Baso % (Auto) Absolute Neuts (auto) Absolute Lymphs (auto) Total Counted Differential Comment Diff Path Review Immature Plt Fraction Retic Count Immature Retic Fraction Retic Hgb Equivalent Sodium Potassium Chloride Carbon Dioxide Anion Gap BUN Creatinine Estim Creat Clear Calc Est GFR (MDRD) Af Amer Est GFR (MDRD) Non-Af BUN/Creatinine Ratio Glucose Calcium Magnesium Iron TIBC Iron Saturation Ferritin Total Bilirubin Direct Bilirubin AST ALT Alkaline Phosphatase Total Protein Albumin Globulin Vitamin B12 Methylmalonic Acid Pending Folate Homocysteine 6.3 Urine Potassium Random Vancomycin 4.6 S.aureus Protein A PCR MRSA (PCR) Miscellaneous Test 05/11/18 05/11/18 05/11/18 05:20 05:20 05:20 WBC 1.5 L RBC 3.91 L Hgb 10.0 L Hct 31.1 L MCV 79.5 L MCH 25.6 L MCHC 32.2 RDW 13.6 RDW Differential 38.9 Plt Count 129 L MPV 11.4 Immature Gran % (Auto) 0.000 Neut % (Auto) 1.3 L Lymph % (Auto) 67.6 H [place] % (Auto) 27.7 H Eos % (Auto) 2.7 Baso % (Auto) 0.7 Absolute Neuts (auto) 0.0 L Absolute Lymphs (auto) 1.00 Total Counted Not Reportable Differential Comment Diff Path Review Immature Plt Fraction 6.2 Retic Count 0.92 Immature Retic Fraction 5.10 Retic Hgb Equivalent 21.0 L Sodium Potassium Chloride Carbon Dioxide Anion Gap BUN Creatinine Estim Creat Clear Calc Est GFR (MDRD) Af Amer Est GFR (MDRD) Non-Af BUN/Creatinine Ratio Glucose Calcium Magnesium Iron 18 L TIBC 356 Iron Saturation 5.1 L Ferritin 42 Total Bilirubin 0.30 Direct Bilirubin 0.08 AST 32 ALT 26 Alkaline Phosphatase 63 Total Protein 7.2 Albumin 3.3 Globulin 3.9 Vitamin B12 Methylmalonic Acid Folate Homocysteine Urine Potassium Random Vancomycin S.aureus Protein A PCR MRSA (PCR) Miscellaneous Test 05/11/18 09:35 WBC RBC Hgb Hct MCV MCH MCHC RDW RDW Differential Plt Count MPV Immature Gran % (Auto) Neut % (Auto) Lymph % (Auto) [place] % (Auto) Eos % (Auto) Baso % (Auto) Absolute Neuts (auto) Absolute Lymphs (auto) Total Counted Differential Comment Diff Path Review Immature Plt Fraction Retic Count Immature Retic Fraction Retic Hgb Equivalent Sodium Potassium Chloride Carbon Dioxide Anion Gap BUN Creatinine Estim Creat Clear Calc Est GFR (MDRD) Af Amer Est GFR (MDRD) Non-Af BUN/Creatinine Ratio Glucose Calcium Magnesium Iron TIBC Iron Saturation Ferritin Total Bilirubin Direct Bilirubin AST ALT Alkaline Phosphatase Total Protein Albumin Globulin Vitamin B12 Methylmalonic Acid Folate Homocysteine Urine Potassium Random Vancomycin S.aureus Protein A PCR NEGATIVE MRSA (PCR) Negative Miscellaneous Test Code Visit Addendum: Dr. Almaraz I personally examined the patient and reviewed the chart. I agree with the above. Ms. Solares is a 23-year-old female presenting with fever and pancytopenia. At the moment it appears to be a drug-induced pancytopenia considering how quickly she has become pancytopenic. Her last normal white blood cell count was on 04/19/2018. Appreciate recommendations from infectious disease and hematology. Inpatient E&M: 13119 Subs Hosp L2
[2018-05-11 13:34] LABS: Basophil# 0.01 X10^3/uL; Basophil% 0.7 % (0-1); Eosinophil# 0.04 X10^3/uL; Eosinophils% 2.7 % (0-5); Immature Platelet Fraction 6.2 % (1.0-7.9); Lymphocyte % 67.6 % (19-41); Monocyte# 0.41 X10^3/uL; Monocyte% 27.7 % (0-10); Neutrophil # 0.02 X10^3/uL (2.7-7.7); Neutrophil % 1.3 % (47-70); Reticulocyte Count 0.92 % (0.5-1.5); White Blood Count 1.5 K/mm3 (4.4-11.0)
[2018-05-11 13:47] LABS: Hematocrit 31.1 % (37-47); Mean Corp Hgb Conc 32.2 g/gl (32-36); Mean Corpuscular Hgb 25.6 pg (27.0-32.0); Mean Corpuscular Volume 79.5 fL (81-99); Red Blood Count 3.91 M/mm3 (4.2-5.4)
[2018-05-11 13:48] LABS: Mean Platelet Vol. 11.4 fl (6.2-12.0); POSITIVE COUNT YES; POSITIVE DIFFERENTIAL NO; POSITIVE MORPHOLOGY NO; Platelet Count 129 K/mm3 (150-450); RBC Distribution Width CV 13.6 % (11.6-14.6); RBC Distribution Width SD 38.9 fl (35.1-43.9)
--- NOTE | 2018-05-11 14:02 | PCM.HP.ID ---
Problem List (1) Pancytopenia with fever Status: Acute Reason for Consult: neutropenic fever Consulted by: Dr. Almaraz History of Present Illness: The patient is a 23 year old F who is a pt of Dr. Garibay for R breast infection. Prior cxs with MRSA, underwent second debridement 04/2018 admission with multiple cxs with PsA. Discharged on iv vanc and cefepime via picc with po cipro. Feeling ok while at home, no issues with picc, getting weekly labs. Had some irritation due to wound vac, but surg site doing well. Over past few days, developed severe fatigue, some chills, and moderate posterior headache. Came to ED, found to be pancytopenic, vanc changed to dapto. Full ROS performed and neg except as noted above. - Medical History Past Medical History (Chronic Problems): Chronic Problems (Last Reviewed 05/10/18 @ 21:13 by Bucky Vega MD) BMI 38.0-38.9,adult (Chronic) Depression (Chronic) Allergies/Adverse Reactions: Allergies No Known Allergies Allergy (Verified 05/10/18 16:31) Home Medications: Ambulatory Orders Medication Instructions Recorded Oxycodone HCl/Acetaminophen 1 - 2 tab PO 4X/DAY PRN PRN 7 Days 04/25/18 [Percocet 5-325] #50 tab diazepam 5 mg tablet 5 mg PO 4X/DAY PRN #30 tab 05/09/18 Cefepime HCl [Maxipime] 2 gm IV Q12H 05/10/18 Ciprofloxacin [Cipro] 750 mg PO DAILY 05/10/18 Vancomycin IV 1,500 mg IV Q12H 05/10/18 buPROPion XL [Wellbutrin Xl] 300 mg PO DAILY 05/10/18 Escitalopram Oxalate [Lexapro] 5 mg PO DAILY 05/11/18 - Social History Tobacco Use: non-smoker Vital Signs Temp Pulse Resp BP Pulse Ox 97.7 F L 82 17 109/77 100 05/11/18 08:12 05/11/18 11:37 05/11/18 08:12 05/11/18 10:07 05/11/18 08:12 Oxygen Delivery Method Room Air Weight: 105.41 kg Body Mass Index (BMI) 37.5 Laboratory Tests Past 24 Hrs 05/10/18 05/10/18 05/10/18 18:05 18:05 18:05 WBC 0.6 L* RBC 4.04 L Hgb 10.1 L Hct 32.1 L MCV 79.5 L MCH 25.0 L MCHC 31.5 L RDW 13.7 RDW Differential 39.5 Plt Count 104 L MPV 10.7 Immature Gran % (Auto) 0.000 Neut % (Auto) 9.1 L Lymph % (Auto) 61.8 H [place] % (Auto) 27.3 H Eos % (Auto) 1.8 Baso % (Auto) 0.0 Absolute Neuts (auto) 0.1 L Absolute Lymphs (auto) 0.34 L Total Counted Not Reportable Differential Comment SCANNED Diff Path Review Reviewed Immature Plt Fraction Retic Count Immature Retic Fraction Retic Hgb Equivalent Sodium 137 Potassium 2.8 L Chloride 104 Carbon Dioxide 25.0 Anion Gap 8 BUN 4 L Creatinine 0.74 Estim Creat Clear Calc 108.79 Est GFR (MDRD) Af Amer 123 Est GFR (MDRD) Non-Af 102 BUN/Creatinine Ratio 5.4 L Glucose 86 Calcium 8.1 L Magnesium Total Bilirubin Direct Bilirubin AST ALT Alkaline Phosphatase Total Protein Albumin Globulin Vitamin B12 Methylmalonic Acid Folate Homocysteine Urine Potassium Random Vancomycin S.aureus Protein A PCR MRSA (PCR) Miscellaneous Test Cancelled 05/10/18 05/10/18 05/11/18 18:05 18:05 05:05 WBC RBC Hgb Hct MCV MCH MCHC RDW RDW Differential Plt Count MPV Immature Gran % (Auto) Neut % (Auto) Lymph % (Auto) [place] % (Auto) Eos % (Auto) Baso % (Auto) Absolute Neuts (auto) Absolute Lymphs (auto) Total Counted Differential Comment Diff Path Review Immature Plt Fraction Retic Count Immature Retic Fraction Retic Hgb Equivalent Sodium Potassium Chloride Carbon Dioxide Anion Gap BUN Creatinine Estim Creat Clear Calc Est GFR (MDRD) Af Amer Est GFR (MDRD) Non-Af BUN/Creatinine Ratio Glucose Calcium Magnesium 1.7 Total Bilirubin Direct Bilirubin AST ALT Alkaline Phosphatase Total Protein Albumin 3.5 Globulin Vitamin B12 Methylmalonic Acid Folate Homocysteine Urine Potassium 19.0 Random Vancomycin S.aureus Protein A PCR MRSA (PCR) Miscellaneous Test 05/11/18 05/11/18 05/11/18 05:20 05:20 05:20 WBC 1.5 L RBC 3.91 L Hgb 10.0 L Hct 31.1 L MCV 79.5 L MCH 25.6 L MCHC 32.2 RDW 13.6 RDW Differential 38.9 Plt Count 129 L MPV 11.4 Immature Gran % (Auto) Neut % (Auto) Lymph % (Auto) [place] % (Auto) Eos % (Auto) Baso % (Auto) Absolute Neuts (auto) Absolute Lymphs (auto) Total Counted Differential Comment Diff Path Review Reviewed Immature Plt Fraction Retic Count Immature Retic Fraction Retic Hgb Equivalent Sodium 141 Potassium 3.4 L Chloride 107 Carbon Dioxide 24.0 Anion Gap 10 BUN 5 L Creatinine 0.50 L Estim Creat Clear Calc 161.02 Est GFR (MDRD) Af Amer 192 Est GFR (MDRD) Non-Af 159 BUN/Creatinine Ratio 10.0 Glucose 84 Calcium 8.4 L Magnesium Total Bilirubin Direct Bilirubin AST ALT Alkaline Phosphatase Total Protein Albumin Globulin Vitamin B12 419 Methylmalonic Acid Folate 15.30 Homocysteine Urine Potassium Random Vancomycin S.aureus Protein A PCR MRSA (PCR) Miscellaneous Test 05/11/18 05/11/18 05/11/18 05:20 05:20 05:20 WBC RBC Hgb Hct MCV MCH MCHC RDW RDW Differential Plt Count MPV Immature Gran % (Auto) Neut % (Auto) Lymph % (Auto) [place] % (Auto) Eos % (Auto) Baso % (Auto) Absolute Neuts (auto) Absolute Lymphs (auto) Total Counted Differential Comment Diff Path Review Immature Plt Fraction Retic Count Immature Retic Fraction Retic Hgb Equivalent Sodium Potassium Chloride Carbon Dioxide Anion Gap BUN Creatinine Estim Creat Clear Calc Est GFR (MDRD) Af Amer Est GFR (MDRD) Non-Af BUN/Creatinine Ratio Glucose Calcium Magnesium Total Bilirubin Direct Bilirubin AST ALT Alkaline Phosphatase Total Protein Albumin Globulin Vitamin B12 Methylmalonic Acid Pending Folate Homocysteine 6.3 Urine Potassium Random Vancomycin 4.6 S.aureus Protein A PCR MRSA (PCR) Miscellaneous Test 05/11/18 05/11/18 05/11/18 05:20 05:20 09:35 WBC 1.5 L RBC 3.91 L Hgb 10.0 L Hct 31.1 L MCV 79.5 L MCH 25.6 L MCHC 32.2 RDW 13.6 RDW Differential 38.9 Plt Count 129 L MPV 11.4 Immature Gran % (Auto) 0.000 Neut % (Auto) 1.3 L Lymph % (Auto) 67.6 H [place] % (Auto) 27.7 H Eos % (Auto) 2.7 Baso % (Auto) 0.7 Absolute Neuts (auto) 0.0 L Absolute Lymphs (auto) 1.00 Total Counted Not Reportable Differential Comment Diff Path Review Immature Plt Fraction 6.2 Retic Count 0.92 Immature Retic Fraction 5.10 Retic Hgb Equivalent 21.0 L Sodium Potassium Chloride Carbon Dioxide Anion Gap BUN Creatinine Estim Creat Clear Calc Est GFR (MDRD) Af Amer Est GFR (MDRD) Non-Af BUN/Creatinine Ratio Glucose Calcium Magnesium Total Bilirubin 0.30 Direct Bilirubin 0.08 AST 32 ALT 26 Alkaline Phosphatase 63 Total Protein 7.2 Albumin 3.3 Globulin 3.9 Vitamin B12 Methylmalonic Acid Folate Homocysteine Urine Potassium Random Vancomycin S.aureus Protein A PCR NEGATIVE MRSA (PCR) Negative Miscellaneous Test - Other Studies Radiology: [] reviewed Other Studies: [] Route of nutrition/ use of supplements: [] Nutritional Intake: [] IV Site: [] Jj Catheter: [] - Physical Exam General: Alert, Oriented x3, Cooperative, No apparent distress HEENT: Atraumatic, PERRLA, EOMI Neck: Supple, No Nodes Lungs: Clear to auscultation, Normal air movement Cardiovascular: Regular rate, Regular Rhythm Abdomen: Soft, Non Tender, Non-Distended Extremities: No edema Skin: No rashes, Ulcer/ Wound - appears clean IV Site: PICC, without redness Musculoskeletal: No Tenderness to Palpation of Joints or Extremities Neurological: Cranial nerves II-XII grossly intact - Assessment/Plan Antibiotics: [] Assessment/Plan: [] Active and Suspected Problems (Last Reviewed 05/10/18 @ 21:13 by Bucky Vega MD) Drug induced fever (Acute) Pancytopenia with fever (Acute) Pancytopenia (Acute) Pseudomonas aeruginosa infection (Acute) Non-pressure chronic ulcer of skin of other sites with fat layer exposed (Acute) Open wound of right chest wall with complication (Acute) Pancytopenia with fever - concern for drug reaction. Has been on vanc/cefepime/cipro. Wound appears to be healing well, but is at risk for surg site infection as well as picc-related bacteremia. Wound cx sent. MRSA pcr was neg. Cover with dapto and meropenem for now. If bcx are neg, plan on stopping dapto tomorrow. I consulted heme, appreciate their eval. Will follow, thank you, d/w primary team.
--- NOTE | 2018-05-11 14:13 | CASEMGMT ---
ÁLVARO MASTERSON assessment: Face to Face with patient for initial transition planning/care coordination assessment. RN ALEJA introduced self and role at [facility], pt voices understanding and consents to assessment at this time. Pt is lying in bed in no distress at this time. Pt is A/Ox4 at this time and answers all questions appropriately at this time but does fall back to sleep when not stimulated verbally. Care providers, pharmacy, and demographics verified at this time. PCP: Lui Specialists: Lani[facility]juan Preferred Pharmacy: [facility] Insurance: [facility] Prescription Benefit: [facility] Living Will/HPOA: Pt states does not have LW/HPOA and declines info at this time. LNOK: Benito Vaughn, jennifer; Karoline Delgadillo, stepmother Living Arrangements: Pt lives with jennifer and 3 small children in a mobile home and pt states no concerns at home at this time. Pt states has a few steps into mobile home and states no concerns at this time. Transportation: Pt states drives self and states no transportation concerns at this time. DME/HHC: Pt states has all IVT set up at home through [facility] and has HHC set up through [facility] for wound vac. Per pt, she is independent with IV therapy at this time and RN is coming out for wound vac. Pt is now saying that she is allergic to the wound vac tape and is now just doing a dressing. Pt also states that she f/u with [facility] wound clinic once weekly. Pt states no concerns with going home at time of discharge. Pt states does not smoke, drink ETOH, or do recreational drugs. Advised pt to ask for CM if any further questions/concerns/needs arise, voices understanding. Plan: Home w/ resumption HHC [place] ÁLVARO MASTERSON
[2018-05-11] MEDS: TBO-FILGRASTIM 480 MCG/0.8 ML ML SC (14:42)
[2018-05-11 14:55] LABS: Ferritin 42 ng/mL (8-252); Iron 18 ug/dL (50-170); Iron Binding Capacity,Total 356 ug/dL (250-450); PERCENT IRON SATURATION 5.1 % (15.0-55.0)
--- NOTE | 2018-05-11 17:11 | PCM.PN.SRG ---
Patient Problems: Active and Suspected Problems (Last Reviewed 05/10/18 @ 21:13 by Bucky Vega MD) Drug induced fever (Acute) Pancytopenia with fever (Acute) Pancytopenia (Acute) Pseudomonas aeruginosa infection (Acute) Non-pressure chronic ulcer of skin of other sites with fat layer exposed (Acute) Open wound of right chest wall with complication (Acute) Subjective: Postop #23 Patient is known to me. She had surgery on 04/18/18 where she underwent surgical preparation right lateral chest wall with incision and drainage and excisional debridement Pseudomonas abscess (40 cm2). Wound care was started with the VAC. Wound culture showed Pseudomonas aeroginosa and previously she had MRSA. She was discharged home on Vancomycin, Cefepime, and Cipro. She was having some periwound issues with redness, itching most likely from the VAC drape. Wound care was changed to Silver dressings daily to allow healing of the periwound area. An antifungal medication cream was started. Patient had complained of intermittent fevers at home. Her weekly lab work showed a critical level where her WBC was 0.6. It was recommended she come to the ED for admission. - Physical Exam General: Alert, Oriented x3 HEENT: PERRLA, EOMI Neck: Supple Abdomen: Soft, Non-Distended Skin: Ulcer/ Wound - right lateral chest wall absces wound is stable. Underlying latissimus muscle is visible and palpable. Periwound area is improving with less fungal rash. Still itchy. Measures 10 x 5 x 3 cm. No evidence of cellulitis, fluctuance, or purulent drainage. Some tenderness to palpation. Neurological: Cranial nerves II-XII grossly intact Psych/Mental Status: Normal Affect, Appropriate Vital Signs Temp Pulse Resp BP Pulse Ox 98.1 F 79 18 119/79 98 05/11/18 14:36 05/11/18 14:36 05/11/18 14:36 05/11/18 14:36 05/11/18 14:36 Oxygen Delivery Method Room Air Weight: 232 lb 6.228 oz Body Mass Index (BMI) 37.5 Intake and Output for Last 24 Hours 05/09/18 05/10/18 05/11/18 23:59 23:59 23:59 Intake Total 1468 / 1468 Balance 1468 / 1468 Laboratory Tests Past 24 Hrs 05/10/18 05/10/1818 18:05 18:05 18:05 WBC 0.6 L* RBC 4.04 L Hgb 10.1 L Hct 32.1 L MCV 79.5 L MCH 25.0 L MCHC 31.5 L RDW 13.7 RDW Differential 39.5 Plt Count 104 L MPV 10.7 Immature Gran % (Auto) 0.000 Neut % (Auto) 9.1 L Lymph % (Auto) 61.8 H [place] % (Auto) 27.3 H Eos % (Auto) 1.8 Baso % (Auto) 0.0 Absolute Neuts (auto) 0.1 L Absolute Lymphs (auto) 0.34 L Total Counted Not Reportable Differential Comment SCANNED Diff Path Review Reviewed Immature Plt Fraction Retic Count Immature Retic Fraction Retic Hgb Equivalent Sodium 137 Potassium 2.8 L Chloride 104 Carbon Dioxide 25.0 Anion Gap 8 BUN 4 L Creatinine 0.74 Estim Creat Clear Calc 108.79 Est GFR (MDRD) Af Amer 123 Est GFR (MDRD) Non-Af 102 BUN/Creatinine Ratio 5.4 L Glucose 86 Calcium 8.1 L Magnesium Iron TIBC Iron Saturation Ferritin Total Bilirubin Direct Bilirubin AST ALT Alkaline Phosphatase Total Protein Albumin Globulin Vitamin B12 Methylmalonic Acid Folate Homocysteine Urine Potassium Random Vancomycin S.aureus Protein A PCR MRSA (PCR) Miscellaneous Test Cancelled 05/10/18 05/10/18 05/11/18 18:05 18:05 05:05 WBC RBC Hgb Hct MCV MCH MCHC RDW RDW Differential Plt Count MPV Immature Gran % (Auto) Neut % (Auto) Lymph % (Auto) [place] % (Auto) Eos % (Auto) Baso % (Auto) Absolute Neuts (auto) Absolute Lymphs (auto) Total Counted Differential Comment Diff Path Review Immature Plt Fraction Retic Count Immature Retic Fraction Retic Hgb Equivalent Sodium Potassium Chloride Carbon Dioxide Anion Gap BUN Creatinine Estim Creat Clear Calc Est GFR (MDRD) Af Amer Est GFR (MDRD) Non-Af BUN/Creatinine Ratio Glucose Calcium Magnesium 1.7 Iron TIBC Iron Saturation Ferritin Total Bilirubin Direct Bilirubin AST ALT Alkaline Phosphatase Total Protein Albumin 3.5 Globulin Vitamin B12 Methylmalonic Acid Folate Homocysteine Urine Potassium 19.0 Random Vancomycin S.aureus Protein A PCR MRSA (PCR) Miscellaneous Test 05/11/18 05/11/18 05/11/18 05:20 05:20 05:20 WBC 1.5 L RBC 3.91 L Hgb 10.0 L Hct 31.1 L MCV 79.5 L MCH 25.6 L MCHC 32.2 RDW 13.6 RDW Differential 38.9 Plt Count 129 L MPV 11.4 Immature Gran % (Auto) Neut % (Auto) Lymph % (Auto) [place] % (Auto) Eos % (Auto) Baso % (Auto) Absolute Neuts (auto) Absolute Lymphs (auto) Total Counted Differential Comment Diff Path Review Reviewed Immature Plt Fraction Retic Count Immature Retic Fraction Retic Hgb Equivalent Sodium 141 Potassium 3.4 L Chloride 107 Carbon Dioxide 24.0 Anion Gap 10 BUN 5 L Creatinine 0.50 L Estim Creat Clear Calc 161.02 Est GFR (MDRD) Af Amer 192 Est GFR (MDRD) Non-Af 159 BUN/Creatinine Ratio 10.0 Glucose 84 Calcium 8.4 L Magnesium Iron TIBC Iron Saturation Ferritin Total Bilirubin Direct Bilirubin AST ALT Alkaline Phosphatase Total Protein Albumin Globulin Vitamin B12 419 Methylmalonic Acid Folate 15.30 Homocysteine Urine Potassium Random Vancomycin S.aureus Protein A PCR MRSA (PCR) Miscellaneous Test 05/11/18 05/11/18 05/11/18 05:20 05:20 05:20 WBC RBC Hgb Hct MCV MCH MCHC RDW RDW Differential Plt Count MPV Immature Gran % (Auto) Neut % (Auto) Lymph % (Auto) [place] % (Auto) Eos % (Auto) Baso % (Auto) Absolute Neuts (auto) Absolute Lymphs (auto) Total Counted Differential Comment Diff Path Review Immature Plt Fraction Retic Count Immature Retic Fraction Retic Hgb Equivalent Sodium Potassium Chloride Carbon Dioxide Anion Gap BUN Creatinine Estim Creat Clear Calc Est GFR (MDRD) Af Amer Est GFR (MDRD) Non-Af BUN/Creatinine Ratio Glucose Calcium Magnesium Iron TIBC Iron Saturation Ferritin Total Bilirubin Direct Bilirubin AST ALT Alkaline Phosphatase Total Protein Albumin Globulin Vitamin B12 Methylmalonic Acid Pending Folate Homocysteine 6.3 Urine Potassium Random Vancomycin 4.6 S.aureus Protein A PCR MRSA (PCR) Miscellaneous Test 05/11/18 05/11/18 05/11/18 05:20 05:20 05:20 WBC 1.5 L RBC 3.91 L Hgb 10.0 L Hct 31.1 L MCV 79.5 L MCH 25.6 L MCHC 32.2 RDW 13.6 RDW Differential 38.9 Plt Count 129 L MPV 11.4 Immature Gran % (Auto) 0.000 Neut % (Auto) 1.3 L Lymph % (Auto) 67.6 H [place] % (Auto) 27.7 H Eos % (Auto) 2.7 Baso % (Auto) 0.7 Absolute Neuts (auto) 0.0 L Absolute Lymphs (auto) 1.00 Total Counted Not Reportable Differential Comment Diff Path Review Immature Plt Fraction 6.2 Retic Count 0.92 Immature Retic Fraction 5.10 Retic Hgb Equivalent 21.0 L Sodium Potassium Chloride Carbon Dioxide Anion Gap BUN Creatinine Estim Creat Clear Calc Est GFR (MDRD) Af Amer Est GFR (MDRD) Non-Af BUN/Creatinine Ratio Glucose Calcium Magnesium Iron 18 L TIBC 356 Iron Saturation 5.1 L Ferritin 42 Total Bilirubin 0.30 Direct Bilirubin 0.08 AST 32 ALT 26 Alkaline Phosphatase 63 Total Protein 7.2 Albumin 3.3 Globulin 3.9 Vitamin B12 Methylmalonic Acid Folate Homocysteine Urine Potassium Random Vancomycin S.aureus Protein A PCR MRSA (PCR) Miscellaneous Test 05/11/18 09:35 WBC RBC Hgb Hct MCV MCH MCHC RDW RDW Differential Plt Count MPV Immature Gran % (Auto) Neut % (Auto) Lymph % (Auto) [place] % (Auto) Eos % (Auto) Baso % (Auto) Absolute Neuts (auto) Absolute Lymphs (auto) Total Counted Differential Comment Diff Path Review Immature Plt Fraction Retic Count Immature Retic Fraction Retic Hgb Equivalent Sodium Potassium Chloride Carbon Dioxide Anion Gap BUN Creatinine Estim Creat Clear Calc Est GFR (MDRD) Af Amer Est GFR (MDRD) Non-Af BUN/Creatinine Ratio Glucose Calcium Magnesium Iron TIBC Iron Saturation Ferritin Total Bilirubin Direct Bilirubin AST ALT Alkaline Phosphatase Total Protein Albumin Globulin Vitamin B12 Methylmalonic Acid Folate Homocysteine Urine Potassium Random Vancomycin S.aureus Protein A PCR NEGATIVE MRSA (PCR) Negative Miscellaneous Test Medical Necessity - Tobacco Use Smoking Status: Never smoker Assessment/Plan All Active Problems (Last Reviewed 05/10/18 @ 21:13 by Bucky Vega MD) Drug induced fever (Acute) Pancytopenia with fever (Acute) Pancytopenia (Acute) Pseudomonas aeruginosa infection (Acute) Non-pressure chronic ulcer of skin of other sites with fat layer exposed (Acute) Open wound of right chest wall with complication (Acute) Cellulitis of right breast (Acute) Cellulitis of chest wall (Acute) Abscess of chest wall (Acute) Cellulitis and abscess of other specified site (Acute) MRSA (methicillin resistant Staphylococcus aureus) infection (Acute) Abscess of right breast (Ruled-out) Acute pyelonephritis (Resolved) 1. Nonhealing painful ulcer right lateral chest wall. 2. MRSA. 3. s/p surgical preparation right lateral chest wall with incision and drainage and excisional debridement Pseudomonas abscess (40 cm2). 4. Pseudomonas infection right lateral chest wall. 5. Pancytopenia, probable medication related. Antibiotics have been changed to Daptomycin and Meropenem. Continue daily dressing changes with Aquacel Silver. Once the periwound rash has resolved, may return to the VAC. Encourage nutritional supplementation with protein to help the healing process. If fevers continue, the wound does not look like the source of the continued fevers. Would suspect an infected PICC line and would recommend pulling the PICC line and culturing the tip. After her WBC has normalized and she is discharged, can followup [facility]. No need for urgent surgical intervention at this time.
[2018-05-12] VITALS (12 sets, daily range): BP systolic 113–151; BP diastolic 58–83; PULSE 67–93; RESP 14–18; TEMP 36.3–36.9; O2SAT 96–98
[2018-05-12] MEDS: oxyCODONE 5 MG Tablet PO ×4 (01:40→20:52)
[2018-05-12] MEDS: diazePAM 5 MG Tablet PO ×2 (01:40→10:45)
[2018-05-12] MEDS: Acetaminophen 325 MG Tablet PO (01:41)
[2018-05-12] MEDS: 0.9% NaCl PICC Flush IV ×3 (06:05→20:53)
[2018-05-12] MEDS: HYDROmorphone 1 MG/ML Syringe IV (06:05)
[2018-05-12 06:19] LABS: Anion Gap 6 (5-15); BUN 9 mg/dL (7-18); BUN/Creat Ratio 16.2 RATIO (10-20); Calcium,Total 8.7 mg/dL (8.5-10.1); Chloride 107 mmol/L (98-107); Creatinine, Serum 0.56 mg/dL (0.55-1.02); EST Glomerular Filtration Rate 141 mL/min (>60); Est Glom Filt Rate - Afr Amer 171 mL/min (>60); Estimated Creatinine Clearance 143.76 ml/min; Glucose 96 mg/dL (74-106); Potassium 3.6 mmol/L (3.5-5.1); Sodium Level 140 mmol/L (136-145)
[2018-05-12 08:56] LABS: Absolute Lymphocyte Count 1.71 X10^3/ul (0.83-4.51); Absolute Neutrophil Count 2.3 X10^3/uL (2.0-7.7); Basophil# 0.02 X10^3/uL; Basophil% 0.4 % (0-1); Eosinophil# 0.13 X10^3/uL; Eosinophils% 2.7 % (0-5); Hematocrit 31.9 % (37-47); Hemoglobin 10.1 g/dl (12.0-15.0); Lymphocyte # 1.71 X10^3/ul (4.0); Lymphocyte % 35.1 % (19-41); Mean Corp Hgb Conc 31.7 g/gl (32-36); Mean Corpuscular Hgb 25.5 pg (27.0-32.0); Mean Corpuscular Volume 80.6 fL (81-99); Mean Platelet Vol. 11.7 fl (6.2-12.0); Monocyte# 0.64 X10^3/uL; Monocyte% 13.1 % (0-10); Neutrophil # 2.33 X10^3/uL (2.7-7.7); Neutrophil % 47.9 % (47-70); Platelet Count 143 K/mm3 (150-450); RBC Distribution Width CV 13.8 % (11.6-14.6); RBC Distribution Width SD 40.2 fl (35.1-43.9); Red Blood Count 3.96 M/mm3 (4.2-5.4); White Blood Count 4.9 K/mm3 (4.4-11.0)
[2018-05-12 08:58] LABS: Differential Indicated SCAN CRITERIA MET; POSITIVE COUNT NO; POSITIVE DIFFERENTIAL NO; POSITIVE MORPHOLOGY YES
--- NOTE | 2018-05-12 10:40 | PCM.PN.ID ---
Patient Problems: Active and Suspected Problems (Last Reviewed 05/10/18 @ 21:13 by Bucky Vega MD) Drug induced fever (Acute) Pancytopenia with fever (Acute) Pancytopenia (Acute) Subjective: Feeling better, no fever, no n/v. Mild loose stools with abx. - Physical Exam General: Alert, Cooperative, No apparent distress Lungs: Clear to auscultation, Normal air movement Cardiovascular: Regular rate, Regular Rhythm Abdomen: Soft, Non Tender, Non-Distended Skin: No rashes, Ulcer/ Wound - R chest wall clean and dry Vital Signs Temp Pulse Resp BP Pulse Ox 97.4 F L 67 18 113/58 L 98 05/12/18 06:00 05/12/18 07:00 05/12/18 06:00 05/12/18 06:00 05/12/18 08:00 Oxygen Delivery Method Room Air Weight: 105.41 kg Body Mass Index (BMI) 37.5 Intake and Output for Last 24 Hours 05/10/18 05/11/18 05/12/18 23:59 23:59 23:59 Intake Total 2388 / 2388 998 / 998 Balance 2388 / 2388 998 / 998 Microbiology Past 72 Hours 05/11/18 09:35 Gram Stain - Final Wound - Aerobic & Anaerobic Swabs Wound Culture - Preliminary No growth-Final to follow Laboratory Tests Past 24 Hrs 05/10/18 05/11/18 05/11/18 18:05 05:20 05:20 WBC RBC Hgb Hct MCV MCH MCHC RDW RDW Differential Plt Count MPV Immature Gran % (Auto) Neut % (Auto) Lymph % (Auto) [place] % (Auto) Eos % (Auto) Baso % (Auto) Absolute Neuts (auto) Absolute Lymphs (auto) Total Counted Diff Path Review Reviewed Reviewed Immature Plt Fraction Retic Count Immature Retic Fraction Retic Hgb Equivalent Sodium Potassium Chloride Carbon Dioxide Anion Gap BUN Creatinine Estim Creat Clear Calc Est GFR (MDRD) Af Amer Est GFR (MDRD) Non-Af BUN/Creatinine Ratio Glucose Calcium Iron TIBC Iron Saturation Ferritin Total Bilirubin Direct Bilirubin AST ALT Alkaline Phosphatase Total Protein Albumin Globulin Random Vancomycin 4.6 S.aureus Protein A PCR MRSA (PCR) 05/11/18 05/11/18 05/11/18 05:20 05:20 05:20 WBC 1.5 L RBC 3.91 L Hgb 10.0 L Hct 31.1 L MCV 79.5 L MCH 25.6 L MCHC 32.2 RDW 13.6 RDW Differential 38.9 Plt Count 129 L MPV 11.4 Immature Gran % (Auto) 0.000 Neut % (Auto) 1.3 L Lymph % (Auto) 67.6 H [place] % (Auto) 27.7 H Eos % (Auto) 2.7 Baso % (Auto) 0.7 Absolute Neuts (auto) 0.0 L Absolute Lymphs (auto) 1.00 Total Counted Not Reportable Diff Path Review Immature Plt Fraction 6.2 Retic Count 0.92 Immature Retic Fraction 5.10 Retic Hgb Equivalent 21.0 L Sodium Potassium Chloride Carbon Dioxide Anion Gap BUN Creatinine Estim Creat Clear Calc Est GFR (MDRD) Af Amer Est GFR (MDRD) Non-Af BUN/Creatinine Ratio Glucose Calcium Iron 18 L TIBC 356 Iron Saturation 5.1 L Ferritin 42 Total Bilirubin 0.30 Direct Bilirubin 0.08 AST 32 ALT 26 Alkaline Phosphatase 63 Total Protein 7.2 Albumin 3.3 Globulin 3.9 Random Vancomycin S.aureus Protein A PCR MRSA (PCR) 05/11/18 05/12/18 05/12/18 09:35 05:47 05:47 WBC 4.9 RBC 3.96 L Hgb 10.1 L Hct 31.9 L MCV 80.6 L MCH 25.5 L MCHC 31.7 L RDW 13.8 RDW Differential 40.2 Plt Count 143 L MPV 11.7 Immature Gran % (Auto) 0.800 Neut % (Auto) 47.9 Lymph % (Auto) 35.1 [place] % (Auto) 13.1 H Eos % (Auto) 2.7 Baso % (Auto) 0.4 Absolute Neuts (auto) 2.3 Absolute Lymphs (auto) 1.71 Total Counted Not Reportable Diff Path Review Immature Plt Fraction Retic Count Immature Retic Fraction Retic Hgb Equivalent Sodium 140 Potassium 3.6 Chloride 107 Carbon Dioxide 27.0 Anion Gap 6 BUN 9 Creatinine 0.56 Estim Creat Clear Calc 143.76 Est GFR (MDRD) Af Amer 171 Est GFR (MDRD) Non-Af 141 BUN/Creatinine Ratio 16.2 Glucose 96 Calcium 8.7 Iron TIBC Iron Saturation Ferritin Total Bilirubin Direct Bilirubin AST ALT Alkaline Phosphatase Total Protein Albumin Globulin Random Vancomycin S.aureus Protein A PCR NEGATIVE MRSA (PCR) Negative Medical Necessity - Tobacco Use Smoking Status: Never smoker Route of nutrition/ use of supplements: [] Nutritional Intake: [] IV Site: [] Jj Catheter: [] - Assessment/Plan Antibiotics: [] Assessment/Plan: [] Active and Suspected Problems (Last Reviewed 05/10/18 @ 21:13 by Bucky Vega MD) Drug induced fever (Acute) Pancytopenia with fever (Acute) Pancytopenia (Acute) Pseudomonas aeruginosa infection (Acute) Non-pressure chronic ulcer of skin of other sites with fat layer exposed (Acute) Open wound of right chest wall with complication (Acute) Pancytopenia with fever - concern for drug reaction. Has been on vanc/cefepime/cipro. Wound appears to be healing well, but is at risk for surg site infection as well as picc-related bacteremia. Wound cx neg so far. MRSA pcr was neg. Stop dapto, continue meropenem for now. Counts have recovered, no further fever. She has been on iv abx since her surgery 04/18. With good surgical source control, negative repeat cxs, and significant side effects after 3.5 weeks of treatment, I think she can leave hospital off of abx and picc removed. Will follow, d/w primary team who will touch base with Dr. Garibay.
[2018-05-12] MEDS: buPROPion (XL) 300 MG TABLET.XL PO (10:42)
[2018-05-12] MEDS: TBO-FILGRASTIM 480 MCG/0.8 ML ML SC (10:45)
--- NOTE | 2018-05-12 11:13 | ONC.PN.INPT ---
- Problem List (1) Pancytopenia with fever Status: Acute (2) Open wound of right chest wall with complication Status: Acute Qualifiers: Encounter type: sequela Qualified Code(s): S21.101S - Unspecified open wound of right front wall of thorax without penetration into thoracic cavity, sequela (3) Iron deficiency anemia Status: Acute Qualifiers: Iron deficiency anemia type: unspecified iron deficiency Qualified Code(s): D50.9 - Iron deficiency anemia, unspecified Subjective Date of Service:: 05/12/18 Pancytopenia Ms. Qing Solares is a pleasant 23 year old woman who developed a small lesion in the right axilla February 2018 which led to abscess, multiple procedures and several admissions. Wound found to be associated with MRSA infection. PICC line placed and began IV vancomycin, cefepime and PO Cipro approximately 04/19/18 in the home setting. Since that time she experienced fatigue and intermittent nausea but afebrile until 05/09/18. Subsequently presented to [facility] ED and found to be pancytopenic (new finding) with an ANC of 0.1. Admitted for management. Antimicrobial therapy modified to include daptomycin and meropenem, previous atb discontinued. Patient states she has been told she was anemic at times in the past. LMP 04/27/18 approximately. Does not take any form of iron supplementation. Otherwise denies any episodes of overt bleeding but admits to bruising easily. Upon entering the room, patient lying comfortably in bed. Denies any outstanding complaints since she was evaluated by me on 05/11/18, with the exception of mild discomfort LUE associated with flu shot and mild headache. Past Medical History: Chronic Problems (Last Reviewed 05/10/18 @ 21:13 by Bucky Vega MD) BMI 38.0-38.9,adult (Chronic) Depression (Chronic) Past Medical History - Most Recent Inpatient Visit Past Medical History Start: 05/10/18 20:15 Text: Status: Complete Freq: ONCE Protocol: Document 05/10/18 20:21 RACQUEL (Rec: 05/10/18 20:25 RACQUEL [id number]) BMI Required to complete PMH What is Patient's BMI 37.8 Past Medical History Unable History Recalled No Query Text:Pt Unable/Family Not Present Neurologic Medical History Hx Stroke/TIA No Hx Dementia/Alzheimer's No Hx Parkinson's Disease No Hx Seizures No Hx Multiple Sclerosis No Hx Migraines No Cardiac Medical History VTE Present on Admission No Hx of Deep Vein Thrombosis/VTE/PE No Hx Hypertension Yes: induced Hx Chest Pain/Angina No Hx Heart Attack No Hx Cardiac Surgery/Stents/Etc. No Hx Heart Failure No Hx Pacemaker/AICD No Hx Irregular Heartbeat and/or Afib No Hx Anticoagulant Therapy No Query Text:(Coumadin, Aspirin, Plavix, Xarelto, etc.) Hx Pain in Legs when Walking/Leg Cramps No Respiratory Medical History Hx COPD No Hx Emphysema No Hx Smoking No Smoking Status Never smoker Hx Smoking Exposure Yes Hx Tobacco Use in last 12 months No Hx of Pipe Smoking No Hx Sleep Apnea No CPAP No BIPAP No Do you snore loudly (louder than talking No or can be heard through closed doors)? Do you often feel tired/ fatigued/ Yes sleepy during daytime? Has anyone observed you stop breathing No during sleep? STOP Results Positive GI Medical History Hx Ulcer No Hx Hepatitis No Hx Cirrhosis No Hx GI Bleed No Hx Unplanned Weight Loss No Genitourinary Medical History Indwelling Catheter in Place on Arrival/ No Admission Hx Renal Disease No: hx of kidney stones Hx Dialysis No Musculoskeletal History Hx Arthritis Yes: pelvis and spine Hx Rheumatoid Arthritis No Endocrine Medical History Hx Diabetes No Hx Thyroid Disease No Hematologic Medical History Hx of Blood Transfusion No Hx of Transfusion in last 3 Months No Ever experience any problems with No transfusion(s)? Hx of Preganancy in last 3 Months No Nurse Filling Out Transfusion & SGESSEL Questions: Date: 05/10/18 Time: 20:24 Psycho/Social Medical History Hx Depression Yes: on medication Hx Anxiety Yes Hx Behavior Disorder No Hx Alcohol Use No Hx Substance Use No Other Medical History Hx Blood Disorders No Hx Anemia No Hx Cancer No Hx Drug Resistant Organism Yes: mrsa Wound/Pressure Injury Present on Arrival Yes: to be assessed per /Admission primary rn Query Text:If yes, chart assessment in Shift/Clinical Findings Central Line/PICC/VAD Present on Arrival Yes /Admission Antibiotics within last 7 days? Yes Name of Antibiotic (Include dose/# days cefipime and vancomycin taken if known) Last day ATB taken 05/10/18 Risk for Readmission Number of Risk Factors 3 At Risk for Readmission Patient is At Risk For Readmission Patient is eligible for Call Back Y Past Medical History (Last Reviewed 05/10/18 @ 21:13 by Bucky Vega MD) Anxiety and depression (Acute) Back problem (Acute) Gallstones (Acute) Kidney stones (Acute) Past Surgical History (Last Reviewed 05/10/18 @ 21:13 by Bucky Vega MD) History of appendectomy (Acute) History of back surgery (Acute) History of tubal ligation (Acute) Maternal Family History: Family History (Last Reviewed 05/10/18 @ 21:13 by Bucky Vega MD) Mother Diabetes Hypertension Father Hypertension Grandmother Diabetes Family History: No pertinent history Paternal Family History: Family History (Last Reviewed 05/10/18 @ 21:13 by Bucky Vega MD) Mother Diabetes Hypertension Father Hypertension Grandmother Diabetes Family History: No pertinent history - Social History Lives: With Family Smoking Status: Never smoker Alcohol: None Review of Systems Constitutional:: Reports: Fatigue. Denies: Fever, Sweats, Weight loss, Appetite change, Chills Cardiovascular:: Denies: Chest pain, Palpitations, Dyspnea on exertion, Orthopnea, PND, Shortness of breath Respiratory: Denies: Cough, Hemoptysis, Shortness of Breath, Wheezing Gastrointestinal:: Denies: Abdominal pain, Nausea, Vomiting, Diarrhea, Constipation, Melena, Hematochezia Genitourinary: Denies: Dysuria, Hematuria, 15, Flank pain Musculoskeletal:: Denies: Back pain, Myalgia, Arthralgia Skin: Denies: Rash, Skin Changes, Wounds Neurological:: Denies: Headache, Dizziness, Numbness, Tingling, Visual changes, Tinnitus, Hearing loss Psychiatric: Denies: Anxiety, Depression, Homicidal Ideations, Suicidal Ideations Vital Signs Height 5 ft 6 in Weight: 232 lb 6.228 oz Weight in Pounds 232.4 lbs Pulse Ox 97 Temperature 98.1 F Pulse Rate 86 Respiratory Rate 18 Blood Pressure [BP] 109/77 Blood Pressure 132/70 Blood Pressure Position [BP] Semi-Fowlers Blood Pressure Position Semi-Fowlers - Physical Exam General: Alert, Oriented x3, No apparent distress HEENT: Atraumatic, Normocephalic Oropharynx:: Negative for: Dry mucosa, Ulcerated lesions Neck:: Supple, Trachea midline. Negative for: JVD, bilateral Cardiac:: Regular rate, Regular rhythm, Normal S1, Normal S2. Negative for: Murmur Lungs: Clear to auscultation, Excusion symmetrical. Negative for: Rhonchi, Wheezes Abdomen:: Bowel sounds x 4, Soft, Non-tender, Non-distended. Negative for: Hepatosplenomegaly Extremities:: Negative for: Cyanosis, Edema, Calf tenderness Neurological: Neuro grossly intact Skin:: - - Right axilla/chest wound not visualized- covered with DSD and TABITHA wrap. PICC LUE in place, covered with transparent drsg, surrounding integument without erythema or increased warmth. Negative for: Lesions, Rash, Petechiae, Ecchymosis Psychiatric:: Appropriate affect, Euthymic Lymphatics:: Negative for: Cervical lymphadenopathy, Supraclavicular lymphadenopathy, Axillary lymphadenopathy Laboratory Data: Microbiology 05/11/18 09:35 Gram Stain - Final Wound - Aerobic & Anaerobic Swabs Wound Culture - Preliminary No growth-Final to follow Laboratory Tests 05/12/18 05/12/18 05/11/18 Range/Units 05:47 05:47 09:35 WBC 4.9 (4.4-11.0) K/mm3 RBC 3.96 L (4.2-5.4) M/mm3 Hgb 10.1 L (12.0-15.0) g/dl Hct 31.9 L (37-47) % MCV 80.6 L (81-99) fL MCH 25.5 L (27.0-32.0) pg MCHC 31.7 L (32-36) g/gl RDW 13.8 (11.6-14.6) % RDW Differential 40.2 (35.1-43.9) fl Plt Count 143 L (150-450) K/mm3 MPV 11.7 (6.2-12.0) fl Immature Gran % (Auto) 0.800 (0.0-0.9) % Neut % (Auto) 47.9 (47-70) % Lymph % (Auto) 35.1 (19-41) % Weston % (Auto) 13.1 H (0-10) % Eos % (Auto) 2.7 (0-5) % Baso % (Auto) 0.4 (0-1) % Absolute Neuts (auto) 2.3 (2.0-7.7) X10^3/uL Absolute Lymphs (auto) 1.71 (0.83-4.51) X10^3/ul Total Counted Not Reportable Diff Path Review Immature Plt Fraction (1.0-7.9) % Retic Count (0.5-1.5) % Immature Retic Fraction (3.00-15.90) % Retic Hgb Equivalent (30-35) pg Sodium 140 (136-145) mmol/L Potassium 3.6 (3.5-5.1) mmol/L Chloride 107 (98-107) mmol/L Carbon Dioxide 27.0 (21.0-32.0) mmol/L Anion Gap 6 (5-15) BUN 9 (7-18) mg/dL Creatinine 0.56 (0.55-1.02) mg/dL Estim Creat Clear Calc 143.76 ml/min Est GFR (MDRD) Af Amer 171 (>60) mL/min Est GFR (MDRD) Non-Af 141 (>60) mL/min BUN/Creatinine Ratio 16.2 (10-20) RATIO Glucose 96 (74-106) mg/dL Calcium 8.7 (8.5-10.1) mg/dL Iron (50-170) ug/dL TIBC (250-450) ug/dL Iron Saturation (15.0-55.0) % Ferritin (8-252) ng/mL Total Bilirubin (0.20-1.00) mg/dL Direct Bilirubin (0.00-0.30) mg/dL AST (15-37) U/L ALT (13-56) U/L Alkaline Phosphatase (45-117) U/L Total Protein (6.4-8.2) g/dL Albumin (3.2-5.0) g/dL Globulin (2.2-4.2) g/dL Random Vancomycin (0.0-15.0) ug/mL S.aureus Protein A PCR NEGATIVE (Negative) MRSA (PCR) Negative (Negative) 05/11/18 05/11/18 05/11/18 Range/Units 05:20 05:20 05:20 WBC 1.5 L (4.4-11.0) K/mm3 RBC 3.91 L (4.2-5.4) M/mm3 Hgb 10.0 L (12.0-15.0) g/dl Hct 31.1 L (37-47) % MCV 79.5 L (81-99) fL MCH 25.6 L (27.0-32.0) pg MCHC 32.2 (32-36) g/gl RDW 13.6 (11.6-14.6) % RDW Differential 38.9 (35.1-43.9) fl Plt Count 129 L (150-450) K/mm3 MPV 11.4 (6.2-12.0) fl Immature Gran % (Auto) 0.000 (0.0-0.9) % Neut % (Auto) 1.3 L (47-70) % Lymph % (Auto) 67.6 H (19-41) % Weston % (Auto) 27.7 H (0-10) % Eos % (Auto) 2.7 (0-5) % Baso % (Auto) 0.7 (0-1) % Absolute Neuts (auto) 0.0 L (2.0-7.7) X10^3/uL Absolute Lymphs (auto) 1.00 (0.83-4.51) X10^3/ul Total Counted Not Reportable Diff Path Review Immature Plt Fraction 6.2 (1.0-7.9) % Retic Count 0.92 (0.5-1.5) % Immature Retic Fraction 5.10 (3.00-15.90) % Retic Hgb Equivalent 21.0 L (30-35) pg Sodium (136-145) mmol/L Potassium (3.5-5.1) mmol/L Chloride (98-107) mmol/L Carbon Dioxide (21.0-32.0) mmol/L Anion Gap (5-15) BUN (7-18) mg/dL Creatinine (0.55-1.02) mg/dL Estim Creat Clear Calc ml/min Est GFR (MDRD) Af Amer (>60) mL/min Est GFR (MDRD) Non-Af (>60) mL/min BUN/Creatinine Ratio (10-20) RATIO Glucose (74-106) mg/dL Calcium (8.5-10.1) mg/dL Iron 18 L (50-170) ug/dL TIBC 356 (250-450) ug/dL Iron Saturation 5.1 L (15.0-55.0) % Ferritin 42 (8-252) ng/mL Total Bilirubin 0.30 (0.20-1.00) mg/dL Direct Bilirubin 0.08 (0.00-0.30) mg/dL AST 32 (15-37) U/L ALT 26 (13-56) U/L Alkaline Phosphatase 63 (45-117) U/L Total Protein 7.2 (6.4-8.2) g/dL Albumin 3.3 (3.2-5.0) g/dL Globulin 3.9 (2.2-4.2) g/dL Random Vancomycin (0.0-15.0) ug/mL S.aureus Protein A PCR (Negative) MRSA (PCR) (Negative) 05/11/18 05/11/18 05/10/18 Range/Units 05:20 05:20 18:05 WBC (4.4-11.0) K/mm3 RBC (4.2-5.4) M/mm3 Hgb (12.0-15.0) g/dl Hct (37-47) % MCV (81-99) fL MCH (27.0-32.0) pg MCHC (32-36) g/gl RDW (11.6-14.6) % RDW Differential (35.1-43.9) fl Plt Count (150-450) K/mm3 MPV (6.2-12.0) fl Immature Gran % (Auto) (0.0-0.9) % Neut % (Auto) (47-70) % Lymph % (Auto) (19-41) % Weston % (Auto) (0-10) % Eos % (Auto) (0-5) % Baso % (Auto) (0-1) % Absolute Neuts (auto) (2.0-7.7) X10^3/uL Absolute Lymphs (auto) (0.83-4.51) X10^3/ul Total Counted Diff Path Review Reviewed Reviewed Immature Plt Fraction (1.0-7.9) % Retic Count (0.5-1.5) % Immature Retic Fraction (3.00-15.90) % Retic Hgb Equivalent (30-35) pg Sodium (136-145) mmol/L Potassium (3.5-5.1) mmol/L Chloride (98-107) mmol/L Carbon Dioxide (21.0-32.0) mmol/L Anion Gap (5-15) BUN (7-18) mg/dL Creatinine (0.55-1.02) mg/dL Estim Creat Clear Calc ml/min Est GFR (MDRD) Af Amer (>60) mL/min Est GFR (MDRD) Non-Af (>60) mL/min BUN/Creatinine Ratio (10-20) RATIO Glucose (74-106) mg/dL Calcium (8.5-10.1) mg/dL Iron (50-170) ug/dL TIBC (250-450) ug/dL Iron Saturation (15.0-55.0) % Ferritin (8-252) ng/mL Total Bilirubin (0.20-1.00) mg/dL Direct Bilirubin (0.00-0.30) mg/dL AST (15-37) U/L ALT (13-56) U/L Alkaline Phosphatase (45-117) U/L Total Protein (6.4-8.2) g/dL Albumin (3.2-5.0) g/dL Globulin (2.2-4.2) g/dL Random Vancomycin 4.6 (0.0-15.0) ug/mL S.aureus Protein A PCR (Negative) MRSA (PCR) (Negative) Assessment and Plan 23 year old woman with right axilla/chest wound infection, left upper extremity PICC line and pancytopenia. 1. Neutropenia- resolved subsequent to one dose of 480 mcg Granix, ANC now 2.3. Discontinue Granix. 2. Anemia- Hgb 10.1. Found to be iron deficient as evidenced by iron saturation 5% and ferritin 42. Venofer 300 mg x 1 ordered. 3. Thrombocytopenia- Improved, now mild. Platelets 143,000. No evidence of bleeding/bruising. Continue to monitor. Patient is encouraged to follow up in clinic with Dr. Ceballos at [facility] upon discharge. She was in agreement with the aforementioned plan. Cassandra Balderas, SETH, SCRAPER LOADER OPERATOR-C, AOCNP Medications: Prescriptions This Visit Medication Instructions Recorded Cefepime HCl [Maxipime] 2 gm IV Q12H 05/10/18 Ciprofloxacin [Cipro] 750 mg PO DAILY 05/10/18 Vancomycin IV 1,500 mg IV Q12H 05/10/18 buPROPion XL [Wellbutrin Xl] 300 mg PO DAILY 05/10/18 Escitalopram Oxalate [Lexapro] 5 mg PO DAILY 05/11/18 Medications Added to Medication List This Visit Category Date Time Status Meropenem [Merrem] 500 mg Med 05/12/18 14:00 Active 0.9% Normal Saline 50 ml IV Q8 Primary Care Provider: Dario Poe Referring Provider:
[2018-05-12] MEDS: Ibuprofen 600 MG Tablet PO (13:13)
--- NOTE | 2018-05-12 13:51 | PCM.PROGNOTE ---
<Maxwell Campos - Last Filed: 05/12/18 13:51> Patient Problems: Active and Suspected Problems (Last Reviewed 05/10/18 @ 21:13 by Bucky Vega MD) Drug induced fever (Acute) Pancytopenia with fever (Acute) Pancytopenia (Acute) Iron deficiency anemia (Acute) Subjective: pt complaining of LANGLEY and requesting dilaudid for it. Still has some chronic right axillae pain as well. c/o overnight hot/cold flashes. No SOB/cough. No diarrhea. - Physical Exam General: Alert, Oriented x3, Cooperative HEENT: Atraumatic, PERRLA, EOMI, Normocephalic Neck: Supple, No JVD, Negative Carotid Bruits Lungs: Clear to auscultation, Normal air movement Cardiovascular: Regular rate, No murmurs Abdomen: Bowel Sounds Present, Soft, Non Tender Extremities: No edema, Capillary Refill Less than 3 Seconds Skin: No rashes, No breakdown Musculoskeletal: No Tenderness to Palpation of Joints or Extremities Neurological: Cranial nerves II-XII grossly intact Psych/Mental Status: Normal Affect, Appropriate, Alert and oriented to time, place, person, mood and affect Vital Signs Temp Pulse Resp BP Pulse Ox 98.1 F 89 18 132/70 H 97 05/12/18 11:00 05/12/18 11:00 05/12/18 11:00 05/12/18 11:00 05/12/18 11:00 Oxygen Delivery Method Room Air Weight: 232 lb 6.228 oz Body Mass Index (BMI) 37.5 Intake and Output for Last 24 Hours 05/10/18 05/11/18 05/12/18 23:59 23:59 23:59 Intake Total 2388 / 2388 1556 / 1556 Balance 2388 / 2388 1556 / 1556 Microbiology Past 72 Hours 05/11/18 09:35 Gram Stain - Final Wound - Aerobic & Anaerobic Swabs Wound Culture - Preliminary No growth-Final to follow Laboratory Tests Past 24 Hrs 05/11/18 05/12/18 05/12/18 05:20 05:47 05:47 WBC 4.9 RBC 3.96 L Hgb 10.1 L Hct 31.9 L MCV 80.6 L MCH 25.5 L MCHC 31.7 L RDW 13.8 RDW Differential 40.2 Plt Count 143 L MPV 11.7 Immature Gran % (Auto) 0.800 Neut % (Auto) 47.9 Lymph % (Auto) 35.1 [place] % (Auto) 13.1 H Eos % (Auto) 2.7 Baso % (Auto) 0.4 Absolute Neuts (auto) 2.3 Absolute Lymphs (auto) 1.71 Total Counted Not Reportable Sodium 140 Potassium 3.6 Chloride 107 Carbon Dioxide 27.0 Anion Gap 6 BUN 9 Creatinine 0.56 Estim Creat Clear Calc 143.76 Est GFR (MDRD) Af Amer 171 Est GFR (MDRD) Non-Af 141 BUN/Creatinine Ratio 16.2 Glucose 96 Calcium 8.7 Iron 18 L TIBC 356 Iron Saturation 5.1 L Ferritin 42 Medical Necessity - Tobacco Use Smoking Status: Never smoker Assessment/Plan All Active Problems (Last Reviewed 05/10/18 @ 21:13 by Bucky Vega MD) Drug induced fever (Acute) Pancytopenia with fever (Acute) Pancytopenia (Acute) Iron deficiency anemia (Acute) Pseudomonas aeruginosa infection (Acute) Non-pressure chronic ulcer of skin of other sites with fat layer exposed (Acute) Open wound of right chest wall with complication (Acute) Cellulitis of right breast (Acute) Cellulitis of chest wall (Acute) Abscess of chest wall (Acute) Cellulitis and abscess of other specified site (Acute) MRSA (methicillin resistant Staphylococcus aureus) infection (Acute) Abscess of right breast (Ruled-out) Acute pyelonephritis (Resolved) 1. Pancytopenia - ID and Hematology following - counts recovering with granix. Custer to be antibiotic induced. abx decreased to juju with plan to stop at dc. Venofer given for iron def. Further studies pending. 2. Right axillae abscess 2/[address] Garibay - following. Continue home pain regimen. If cultures negative can likely pull picc line and DC abx. 3. Anxiety and depression - lexapro, wellbutrin, valium 4. Obesity - dietary modification. 5. Low K/Ca - resolved. DVT ppx: SCDs DC planning: Home tomorrow if cx neg. This patient was seen by Maxwell Campos PA-C under the supervision of Doctor Rufina. <Tiago Almaraz F - Last Filed: 05/12/18 16:29> - Physical Exam Vital Signs Temp Pulse Resp BP Pulse Ox 98.1 F 77 18 132/70 H 97 05/12/18 11:00 05/12/18 15:12 05/12/18 11:00 05/12/18 11:00 05/12/18 11:00 Oxygen Delivery Method Room Air Weight: 232 lb 6.228 oz Body Mass Index (BMI) 37.5 Intake and Output for Last 24 Hours 05/10/18 05/11/18 05/12/18 23:59 23:59 23:59 Intake Total 2388 / 2388 1556 / 1556 Balance 2388 / 2388 1556 / 1556 Microbiology Past 72 Hours 05/11/18 09:35 Gram Stain - Final Wound - Aerobic & Anaerobic Swabs Wound Culture - Preliminary No growth-Final to follow Laboratory Tests Past 24 Hrs 05/12/18 05/12/18 05:47 05:47 WBC 4.9 RBC 3.96 L Hgb 10.1 L Hct 31.9 L MCV 80.6 L MCH 25.5 L MCHC 31.7 L RDW 13.8 RDW Differential 40.2 Plt Count 143 L MPV 11.7 Immature Gran % (Auto) 0.800 Neut % (Auto) 47.9 Lymph % (Auto) 35.1 [place] % (Auto) 13.1 H Eos % (Auto) 2.7 Baso % (Auto) 0.4 Absolute Neuts (auto) 2.3 Absolute Lymphs (auto) 1.71 Total Counted Not Reportable Sodium 140 Potassium 3.6 Chloride 107 Carbon Dioxide 27.0 Anion Gap 6 BUN 9 Creatinine 0.56 Estim Creat Clear Calc 143.76 Est GFR (MDRD) Af Amer 171 Est GFR (MDRD) Non-Af 141 BUN/Creatinine Ratio 16.2 Glucose 96 Calcium 8.7 Code Visit Addendum: Dr. Almaraz I personally examined the patient and reviewed the chart. I agree with the above. 23-year-old female presenting with pancytopenia. She is disease and hematology were consulted. And a dose of Granix as well as started on Venofer for her iron deficiency anemia. Per hematology she is okay for discharge and follow-up as an outpatient. Per infectious disease We will continue with meropenem only for now though it is possible that she may not need further antibiotics given the fact that she had had good surgical source control and that repeat cultures were negative.
--- NOTE | 2018-05-12 23:01 | EKG12_ITS ---
Test Reason : CP Blood Pressure : / mmHG Vent. Rate : 076 BPM Atrial Rate : 076 BPM P-R Int : 126 ms QRS Dur : 094 ms QT Int : 398 ms P-R-T Axes : 041 033 018 degrees QTc Int : 447 ms Normal sinus rhythm with sinus arrhythmia Normal ECG When compared with ECG of 18-OCT-2014 11:34, No significant change was found Confirmed by DOMINIK MADDEN, ANISA ([id number]), editor farm journal MADISON SALGUERO ([id number]) on 05/18/2018 3:44:35 PM Referred By: DANNY Confirmed By:ANISA LEHMAN MD
[2018-05-13] VITALS (7 sets, daily range): BP systolic 112–130; BP diastolic 64–79; PULSE 72–99; RESP 14–16; TEMP 36.4–36.7; O2SAT 97–98
[2018-05-13] MEDS: Ibuprofen 600 MG Tablet PO (00:34)
[2018-05-13] MEDS: oxyCODONE 5 MG Tablet PO ×2 (02:57→10:19)
--- NOTE | 2018-05-13 03:07 | NURSING ---
Per face to face discussion with Dr. Vega, WENDI to remove patient from neutropenic and contact precautions. Wound negative for MRSA and WBC 4.9, neutrophils 47.9. Blood cultures pending, but Dr. Vega states if MRSA was present, it would have been showing by now.
[2018-05-13 06:58] LABS: Hematocrit 32.1 % (37-47); Hemoglobin 10.2 g/dl (12.0-15.0); Mean Corp Hgb Conc 31.8 g/gl (32-36); Mean Corpuscular Hgb 25.5 pg (27.0-32.0); Mean Corpuscular Volume 80.3 fL (81-99); Platelet Count 165 K/mm3 (150-450); RBC Distribution Width CV 13.9 % (11.6-14.6); RBC Distribution Width SD 40.4 fl (35.1-43.9); White Blood Count 15.5 K/mm3 (4.4-11.0)
[2018-05-13 07:36] LABS: Differential Indicated MANUAL DIFF; POSITIVE COUNT YES; POSITIVE DIFFERENTIAL NO; POSITIVE MORPHOLOGY YES
[2018-05-13 09:13] LABS: Basophil 1 % (0-1); Eosinophil 2 % (0-5); Lymphocyte 23 % (19-41); Metamyelocyte 5 % (0-1); Monocyte 2 % (0-10); Myelocyte 5 (0-0); Neutrophil-Segmented 62 % (47-70); Platelet Estimate ADEQUATE (ADEQ); Red Cell Morphology NORM C+C NORMAL (NORM C&C); Total Cells Counted 100 (MANUAL DIFF)
[2018-05-13 09:14] LABS: Absolute Lymphocyte Count 3.57 X10^3/ul (0.83-4.51); Absolute Neutrophil Count 9.6 X10^3/uL (2.0-7.7); Lymphocyte # 3.57 X10^3/ul (4.0); Neutrophil # 9.61 X10^3/uL (2.7-7.7)
[2018-05-13] MEDS: buPROPion (XL) 300 MG TABLET.XL PO (10:20)
[2018-05-13] MEDS: diazePAM 5 MG Tablet PO (10:20)
--- NOTE | 2018-05-13 11:46 | DCINST_ITS ---
Addendum entered and electronically signed by Benjamin Garibay MD 05/13/18 13:21: Wrote scripts for Percocet for pain (40 tabs) and Benadryl for itching, (30 tabs) with 2 refills. [facility] or 05/24/18. Please call [phone] for appt time. Original Note: - Discharge Diagnoses Current Active Problems: Current Active and Chronic Problems (Last Reviewed 05/10/18 @ 21:13 by Bucky Vega MD) Drug induced fever (Acute) Pancytopenia with fever (Acute) Pancytopenia (Acute) Iron deficiency anemia (Acute) You will use the following diet at home:: No restrictions Your food should be the consistency of: Regular Your liquids should be the consistency of: Regular/Thin Discharge Activity: Return to Normal Activity Allergies/Adverse Reactions: Allergies No Known Allergies Allergy (Verified 05/10/18 16:31) Medications to take at Discharge Oxycodone HCl/Acetaminophen [Percocet 5-325] 1 - 2 tab PO 4X/DAY PRN PRN 7 Days #50 tab 04/25/18 diazepam 5 mg tablet 5 mg PO 4X/DAY PRN #30 tab 05/09/18 buPROPion XL [Wellbutrin Xl] 300 mg PO DAILY 05/10/18 Escitalopram Oxalate [Lexapro] 5 mg PO DAILY 05/11/18 Ferrous Sulfate [Iron] 325 mg PO BID #60 tab 05/13/18 The following prescriptions were given: Ferrous Sulfate [Iron] 325 mg PO BID #60 tab Primary Care Physician: Dario Poe DO [Primary Care Provider] - Please follow up with your Primary Care Physician in: 2 weeks Test Results: Test results from this visit will be discussed in further detail at your follow- up appointment, if applicable. Please Follow Up With: Benjamin Garibay MD When: As directed Please Follow Up With: Anthony Ceballos MD When: 2 weeks Please Follow Up With: Benito Flannery MD When: 2 weeks Proposed Discharge Date: 05/13/18
--- NOTE | 2018-05-13 11:54 | CASEMGMT ---
Addendum entered by Mariah Machado 05/13/18 14:08: Received call from [facility] and they are updated that pt no longer will have PICC and iv antibx at home, voice understanding and voices no further questions/concerns at this time. Elva REA CM Original Note: Addendum entered by Mariah Machado 05/13/18 12:42: Per Dr. Flannery, pt needs no further antibx iv or po at this time. He states PICC line can be removed. This RN CM spoke with Birgit Negrete from [facility] and she is aware that pt no longer need iv antibx at home, voices understanding. She is also aware that pt will be sent home with resumption of HHC and that they were already notified as [facility] set this up for pt, voices understanding. Per Birgit, [facility] was not involved with iv antibx as pt was independent. She states no further action is needed at this time to discontinue home iv antibx. Robert Anguiano RN aware by Dr. Flannery that PICC line can be pulled prior to discharge, voiced understanding. Elva REA CM Original Note: Addendum entered by Mariah Machado 05/13/18 12:00: Per Maureen ASTUDILLO, he is still awaiting Dr. Flannery to see pt today prior to discharge regarding antibx. Message left with Birgit at [facility] to call this RN ALEJA back when available. Elva REA CM Original Note: Resumption of care, H&P, and discharge instructions faxed to [facility] at this time. Call to Mariah at [facility] to notify her of pt discharge at this time, voices understanding. Elva REA CM
--- NOTE | 2018-05-13 13:04 | PCM.PN.ID ---
Patient Problems: Active and Suspected Problems (Last Reviewed 05/10/18 @ 21:13 by Bucky Vega MD) Drug induced fever (Acute) Pancytopenia with fever (Acute) Pancytopenia (Acute) Iron deficiency anemia (Acute) Subjective: Feeling better, no fever, mild headache - Physical Exam General: Alert, Cooperative, No apparent distress Lungs: Clear to auscultation, Normal air movement Cardiovascular: Regular rate, Regular Rhythm Abdomen: Soft, Non Tender, Non-Distended Skin: Ulcer/ Wound - R chest bandaged Vital Signs Temp Pulse Resp BP Pulse Ox 97.5 F L 89 16 130/79 H 98 05/13/18 10:18 05/13/18 11:00 05/13/18 10:18 05/13/18 10:18 05/13/18 10:18 Oxygen Delivery Method Room Air Weight: 105.41 kg Body Mass Index (BMI) 37.5 Intake and Output for Last 24 Hours 05/11/18 05/12/18 05/13/18 23:59 23:59 23:59 Intake Total 2388 / 2388 2346 / 2346 760 / 760 Balance 2388 / 2388 2346 / 2346 760 / 760 Microbiology Past 72 Hours 05/10/18 19:40 Blood Culture - Preliminary Blood Culture (Wb) - Left Hand No growth in 48 hours. 05/10/18 19:30 Blood Culture - Preliminary Blood Culture (Wb) - Right Hand No growth in 48 hours. 05/11/18 09:35 Gram Stain - Final Wound - Aerobic & Anaerobic Swabs Wound Culture - Preliminary No growth-Final to follow Anaerobic Culture - Preliminary No growth in 48 hours. Laboratory Tests Past 24 Hrs 05/13/18 06:28 WBC 15.5 H RBC 4.00 L Hgb 10.2 L Hct 32.1 L MCV 80.3 L MCH 25.5 L MCHC 31.8 L RDW 13.9 RDW Differential 40.4 Plt Count 165 MPV 12.0 Neut % (Auto) Not Reportable Absolute Neuts (auto) 9.6 H Absolute Lymphs (auto) 3.57 Total Counted 100 Neutrophils % (Manual) 62 Lymphocytes % (Manual) 23 Monocytes % (Manual) 2 Eosinophils % (Manual) 2 Basophils % (Manual) 1 Metamyelocytes % 5 H Myelocytes % 5 H Diff Path Review May foll Platelet Estimate ADEQUATE RBC Morphology NORM C+C Medical Necessity - Tobacco Use Smoking Status: Never smoker Route of nutrition/ use of supplements: [] Nutritional Intake: [] IV Site: [] Jj Catheter: [] - Assessment/Plan Antibiotics: [] Assessment/Plan: [] Active and Suspected Problems (Last Reviewed 05/10/18 @ 21:13 by Bucky Vega MD) Drug induced fever (Acute) Pancytopenia with fever (Acute) Pancytopenia (Acute) Pseudomonas aeruginosa infection (Acute) Non-pressure chronic ulcer of skin of other sites with fat layer exposed (Acute) Open wound of right chest wall with complication (Acute) Pancytopenia with fever - concern for drug reaction. Has been on vanc/cefepime/cipro. Wound appears to be healing well, but is at risk for surg site infection as well as picc-related bacteremia. Wound cx neg so far. MRSA pcr was neg. Stop meropenem. Counts have recovered, no further fever. She has been on iv abx since her surgery 04/18. With good surgical source control, negative repeat cxs, and significant side effects after 3.5 weeks of treatment, ok for d/c off of abx and picc removed. Will follow, d/w primary team
--- NOTE | 2018-05-13 13:20 | PCM.PN.SRG ---
Subjective: Postop #25 Patient is resting comfortably. She was wound pain with the dressing changes. - Physical Exam General: Alert, Oriented x3 HEENT: PERRLA, EOMI Oral: Moist Mucosa Neck: Supple Abdomen: Soft, Non-Distended Skin: Ulcer/ Wound - right lateral chest wall absces wound is stable. Underlying latissimus muscle is visible and palpable. Periwound area is improving with less fungal rash. Still itchy. Measures 10 x 5 x 3 cm. No evidence of cellulitis, fluctuance, or purulent drainage. Some tenderness to palpation. Neurological: Cranial nerves II-XII grossly intact Psych/Mental Status: Normal Affect, Appropriate Vital Signs Temp Pulse Resp BP Pulse Ox 97.5 F L 89 16 130/79 H 98 05/13/18 10:18 05/13/18 11:00 05/13/18 10:18 05/13/18 10:18 05/13/18 10:18 Oxygen Delivery Method Room Air Weight: 232 lb 6.228 oz Body Mass Index (BMI) 37.5 Intake and Output for Last 24 Hours 05/11/18 05/12/18 05/13/18 23:59 23:59 23:59 Intake Total 2388 / 2388 2346 / 2346 760 / 760 Balance 2388 / 2388 2346 / 2346 760 / 760 Microbiology Past 72 Hours 05/10/18 19:40 Blood Culture - Preliminary Blood Culture (Wb) - Left Hand No growth in 48 hours. 05/10/18 19:30 Blood Culture - Preliminary Blood Culture (Wb) - Right Hand No growth in 48 hours. 05/11/18 09:35 Gram Stain - Final Wound - Aerobic & Anaerobic Swabs Wound Culture - Preliminary No growth-Final to follow Anaerobic Culture - Preliminary No growth in 48 hours. Laboratory Tests Past 24 Hrs 05/13/18 06:28 WBC 15.5 H RBC 4.00 L Hgb 10.2 L Hct 32.1 L MCV 80.3 L MCH 25.5 L MCHC 31.8 L RDW 13.9 RDW Differential 40.4 Plt Count 165 MPV 12.0 Neut % (Auto) Not Reportable Absolute Neuts (auto) 9.6 H Absolute Lymphs (auto) 3.57 Total Counted 100 Neutrophils % (Manual) 62 Lymphocytes % (Manual) 23 Monocytes % (Manual) 2 Eosinophils % (Manual) 2 Basophils % (Manual) 1 Metamyelocytes % 5 H Myelocytes % 5 H Diff Path Review May foll Platelet Estimate ADEQUATE RBC Morphology NORM C+C Medical Necessity - Tobacco Use Smoking Status: Never smoker Assessment/Plan All Active Problems (Last Reviewed 05/10/18 @ 21:13 by Bucky Vega MD) Drug induced fever (Acute) Pancytopenia with fever (Acute) Pancytopenia (Acute) Iron deficiency anemia (Acute) Pseudomonas aeruginosa infection (Acute) Non-pressure chronic ulcer of skin of other sites with fat layer exposed (Acute) Open wound of right chest wall with complication (Acute) Cellulitis of right breast (Acute) Cellulitis of chest wall (Acute) Abscess of chest wall (Acute) Cellulitis and abscess of other specified site (Acute) MRSA (methicillin resistant Staphylococcus aureus) infection (Acute) Abscess of right breast (Ruled-out) Acute pyelonephritis (Resolved) 1. Nonhealing painful ulcer right lateral chest wall. 2. MRSA. 3. s/p surgical preparation right lateral chest wall with incision and drainage and excisional debridement Pseudomonas abscess (40 cm2). 4. Pseudomonas infection right lateral chest wall. 5. Pancytopenia, probable medication related. Antibiotics have been changed to Daptomycin and Meropenem and will be discontinued at discharge. Continue daily dressing changes with Aquacel Silver. Once the periwound rash has resolved, may return to the VAC. Will decide that at the [facility]ound Center. Encourage nutritional supplementation with protein to help the healing process. Renewed her Percocet for pain (40 tabs) and her Benadryl for itching (30 tabs). Followup at the Wound Center in one week.
--- NOTE | 2018-05-13 13:43 | PCM.DC.SUM ---
<Maxwell Campos - Last Filed: 05/13/18 13:43> Discharge Date and Diagnosis Date of Admission: 05/10/18 Date of Discharge: 05/13/18 - Primary Discharge Diagnosis Active and Suspected Problems (Last Reviewed 05/10/18 @ 21:13 by Bucky Vega MD) Drug induced fever and pancytopenia (Acute) Chronic right axillary wound with MRSA, pseudomonas, prior debridement by Dr. Garibay Iron deficiency anemia (Acute) Anxiety/depression Obesity - Secondary Discharge Diagnosis Chronic Problems (Last Reviewed 05/10/18 @ 21:13 by Bucky Vega MD) BMI 38.0-38.9,adult (Chronic) Depression (Chronic) Hospital Course and Treatment Consultations 05/10/18 20:36 Consult: Onc/Wound/director market research Routine Comment: Lani - plastics Alma Delia - RUCHI Ceballos - hematology/oncology Operations: - - 04/18/18 - Surgical preparation right lateral chest wall with incision and drainage and excisional debridement Pseudomonas abscess (40 cm2). Procedures: None Summary of Care Provided: Physical exam on day of discharge: General: Resting comfortably NAD Psych: A/Ox3 normal affect HEENT: PEARRLA AT NC Neck: Supple NT CV: RRR no m/t/r/g/h Resp: CTA Abd: [id number] Soft NT no guarding or rigidity Ext: DP2+= no edema Skin: W/D normal turgor Lymph/Heme: No active bleeding or adenopathy Neuro: CN2-12 intact Hospital course: The patient is a 23 year old F with a past medical history of an axillary wound with MRSA and Pseudomonas which was previously debrided by Dr. Garibay, also with a history of anxiety, depression who presented to the emergency room from Dr. Hernandez office for fever. In the ER she was found to be pancytopenic with white count of 0.6, hemoglobin of 10.1 with microcytosis, platelets 104, absolute neutrophil count of 0.1. She had been on about 3-1/2 weeks of IV antibiotics for the prior wound in her axilla with ciprofloxacin, cefepime, and vancomycin. It is felt that her pancytopenia was likely drug-induced from 1 of these antibiotics however it is unclear which one specifically. The patient was admitted to the PCU and placed on meropenem and daptomycin. Infectious disease, hematology, and Dr. Garibay were consulted. Blood cultures and wound cultures were obtained. These were negative. Infectious disease felt that no further antibiotics were warranted and advised her PICC line and antibiotics be discontinued. The patient was given Granix per hematology, and her cell lines did recover. She was also given Venofer as she was found to be iron deficient. After her blood cultures were negative, antibiotics and PICC line were discontinued and she was felt to be stable for discharge. She was discharged home in stable condition and advised to follow-up with her surgeon, infectious disease, and hematology as an outpatient. This patient was seen by Maxwell Campos PA-C under the supervision of Doctor Rufina. [] Discharge Diet: No Restrictions Discharge Activity: Return to Normal Activity Home Medications: Medications to take at Discharge diazepam 5 mg tablet 5 mg PO 4X/DAY PRN #30 tab 05/09/18 buPROPion XL [Wellbutrin Xl] 300 mg PO DAILY 05/10/18 Escitalopram Oxalate [Lexapro] 5 mg PO DAILY 05/11/18 DiphenhydrAMINE [Benadryl] 25 mg PO TID PRN PRN #30 cap 05/13/18 Ferrous Sulfate [Iron] 325 mg PO BID #60 tab 05/13/18 Gauze Bandage [Bandage Roll] 1 ea TP .QDAILY #30 bandage 05/13/18 Oxycodone HCl/Acetaminophen [Percocet 5-325] 1 - 2 tab PO 4X/DAY PRN PRN 7 Days #40 tab 05/13/18 Silver/Hydrocolloid Dressing [Aquacel-Ag W-Hydrofiber Dress] 1 ea TP .QDAILY 30 Days #30 bandage 05/13/18 Following Prescrptions Were Given to Patient: DiphenhydrAMINE [Benadryl] 25 mg PO TID PRN PRN #30 cap PRN Reason: Itching Ferrous Sulfate [Iron] 325 mg PO BID #60 tab Gauze Bandage [Bandage Roll] 1 ea TP .QDAILY #30 bandage Oxycodone HCl/Acetaminophen [Percocet 5-325] 1 - 2 tab PO 4X/DAY PRN PRN 7 Days #40 tab PRN Reason: Pain Silver/Hydrocolloid Dressing [Aquacel-Ag W-Hydrofiber Dress] 1 ea TP .QDAILY 30 Days #30 bandage Primary Care Physician: Dario Poe DO [Primary Care Provider] - Please follow up with your Primary Care Physician in: 2 weeks Please Follow Up With: Benjamin Garibay MD When: As directed Please Follow Up With: Anthony Ceballos MD When: 2 weeks Please Follow Up With: Benito Flannery MD When: 2 weeks Disposition: Home Minutes spent on discharge:: 35 Patient Condition:: Stable Medical Necessity - Tobacco Use Smoking Status: Never smoker Meaningful Use Info Meaningful Use Diagnoses (Choose all that apply): None applicable <Tiago Almaraz F - Last Filed: 05/13/18 15:10> Discharge Date and Diagnosis - Secondary Discharge Diagnosis Chronic Problems (Last Reviewed 05/10/18 @ 21:13 by Bucky Vega MD) BMI 38.0-38.9,adult (Chronic) Depression (Chronic) Hospital Course and Treatment Consultations 05/10/18 20:36 Consult: Onc/Wound/director market research Routine Comment: Summary of Care Provided: The patient is a 23 year old F [] Code Visit Addendum: Dr. Almaraz I personally examined the patient and reviewed the chart. I agree with the above. Ms. Solares is a 23-year-old female status post right abscess drainage and antibiotics. She developed a fairly acute pancytopenia and was admitted with neutropenic fever. On admission initially this was felt to be due to a drug reaction blood cultures and wound cultures were obtained that were all negative. Infectious disease and hematology were consulted, hematology recommended Domonique for her anemia as well as Granix for her neutropenia and on discharge her white blood cell count had increased to 15.5. Negative blood cultures and wound cultures infectious disease recommended removal of the PICC line and to discontinue all antibiotics with outpatient follow-up given how clean the wound is. Inpatient E&M: [id number] Disch Hosp
[2018-05-13 15:20] LABS: Pathologist Review Reviewed
--- NOTE | 2018-05-16 11:26 | CASEMGMT ---
FOLLOW-UP CALL: Patient states that she is feeling well today. She acknowledges all providers that she needs to follow-up with and states she will call to make appointments today. She states she already has a previously scheduled appointment with Dr. Garibay. Patient states [facility] is supposed to come out today, but that she has not yet heard from them. Patient states she does have a contact number for [facility]. I encouraged her to call them if she does not hear anything. Offered patient assistance of any kind and patient denies needs at this time. Patient states she was pleased with the care she received at [facility]. Patient denies any questions at this time.
== END 2018-05-13 14:35 | disposition home or self-care (01) | DRG 395 ==
LOC: ED 16:46 → PCU 19:43
PROVIDERS: Internal Medicine Infectious Disease; Nurse Practitioner Family; Physician Assistant; Admitting Provider Hospitalist; Emergency Provider Emergency Medicine; Family Provider Student in an Organized Health Care Education/Training Program; PCP Student in an Organized Health Care Education/Training Program; Visit Provider Family Medicine
DX: D61.811 Other drug-induced pancytopenia (principal); L03.313 Cellulitis of chest wall; R50.2 Drug induced fever; E87.6 Hypokalemia; E83.51 Hypocalcemia; D50.9 Iron deficiency anemia, unspecified; Z23 Encounter for immunization; F41.9 Anxiety disorder, unspecified; F32.9 Major depressive disorder, single episode, unspecified; E66.9 Obesity, unspecified; Z68.37 Body mass index [BMI] 37.0-37.9, adult; T36.95XA Adverse effect of unspecified systemic antibiotic, initial encounter; L98.492 Non-pressure chronic ulcer of skin of other sites with fat layer exposed; Z86.14 Personal history of Methicillin resistant Staphylococcus aureus infection
CPT/HCPCS: 11042; 11045; 36415; 80048; 80076; 80202; 82040; 82607; 82728; 82746; 83090; 83540; 83550; 83735; 83921; 84133; 85025; 85027; 85045; 87040; 87070; 87075; 87205; 87640; 93005; 97802; 99281; J0878; J1756; J2185; J7050; 90686; A4216; J1447; J3490

== ENCOUNTER 2018-06-06 09:30 | Outpatient (RCR) | payer MEDICAID, SELFPAY ==
[2018-05-09 01:14] VITALS: BP 129/79; PULSE 76; RESP 16; TEMP 37.2
[2018-05-09 12:17] VITALS: BP 150/79; PULSE 75; RESP 18; TEMP 37.4
--- NOTE | 2018-05-10 08:10 | PCM.WC.PN ---
(1) Non-pressure chronic ulcer of skin of other sites with fat layer exposed Status: Acute Current Visit: Yes Code(s): L98.492 - Non-pressure chronic ulcer of skin of other sites with fat layer exposed (2) Open wound of right chest wall with complication Status: Acute Current Visit: Yes Code(s): S21.101A - Unspecified open wound of right front wall of thorax without penetration into thoracic cavity, initial encounter (3) Pseudomonas aeruginosa infection Status: Acute Current Visit: Yes Code(s): A49.8 - Other bacterial infections of unspecified site (4) Cellulitis of chest wall Status: Acute Current Visit: No Code(s): L03.313 - Cellulitis of chest wall (5) MRSA (methicillin resistant Staphylococcus aureus) infection Status: Acute Current Visit: No Code(s): A49.02 - Methicillin resistant Staphylococcus aureus infection, unspecified site Type of Wound Chief Complaint: 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 History of Wound: Surgery 02/22/18 -surgical preparation right lateral chest wall/lateral breast with incision and drainage and excisional debridement abscess (48 cm2). Operative cultures?MRSA. She was discharged on doxycycline. Pre-albumin was 15.0 on 02/22/18. Surgery 04/05/2018 Surgical preparation right lateral chest wall with excision nonhealing painful MRSA ulcer and 10 cm complex secondary wound closure. Surgery 04/18/2018 Surgical preparation right lateral chest wall with incision and drainage and excisional debridement Pseudomonas abscess (40 cm?). Wound VAC restarted, sent home on IV Vancomycin and Cefepime Progress of Wound: Wound is improving. Periwound excoriated and very itchy. Most likely a yeast infection. - Physical Exam Vital Signs Temp Pulse Resp BP 99.3 F H 75 18 150/79 H 05/09/18 12:17 05/09/18 12:17 05/09/18 12:17 05/09/18 12:17 General: Alert, Oriented x3 HEENT: PERRLA Oral: Moist Mucosa, No Gingival or Mucosal Lesions/ Ulcerations Lungs: Normal air movement Cardiovascular: Regular rate Extremities: No edema Skin: Ulcer/ Wound - Right chest/breast ulcer. Wound looking much better this week., Rash Present - Periwound with red excoriated areas. Area very itchy. Wound Measurements and Assessment WC - Nurse 1 - General Ulcer Measurement Start: 05/09/18 12:11 Freq: Status: Active Protocol: Activity Type Activity Date Activity User E-Sign Co-Sign Detail Recorded Client Recorded Date Recorded By Document 05/09/18 12:17 FRANCES [id number] 05/09/18 12:19 05/09/18 12:17 Wound Center Nurse 1 [Ulcer Assessment] #1 RIGHT UPPER RIB AREA -Combined with other wound No -Current Size (cm) - Length 5.5 -Current Size (cm) - Width 8 -Current Size (cm) - Depth 3.5 -Total Square Cm 44.0 -Photo Taken No -Epithelialization Small 1-33% -Tunneling No -Undermining/Tunneling No -Circular Undermining No -Exudate Amt Large (67-100%) -Exudate Type Serosanguineous -Wound Margin Flat & Intact -Granulation Amt Large (67-100%) -Granulation Quality Red -Slough/Fibrin Yes -Necrosis Amt Small (1-33%) -Necrotic Tissue Type Adherent Slough -Structure Exposed N/A -Texture (Nilsa-wound Skin Appearance) Assessed Excoriation Friable Rash -Moisture (Nilsa-wound Skin Appearance Assessed ) Dry/Scaly -Color (Nilsa-wound Skin Appearance) Assessed -Temperature (Nilsa-wound Skin No Abnormality Appearance) (Pt Warm) -Tenderness on Palpation (Nilsa-wound No Skin Appearance) -Ulcer Cleansing Wound Cleanser -Foul Odor after Cleansing No -Anesthetic Used 4% Lidocaine Solution [Edema Assessment] -Lower Limb Edema Present NA - Nurse 2 - General Ulcer CM Notes Start: 05/09/18 12:11 Freq: Status: Active Protocol: Activity Type Activity Date Activity User E-Sign Co-Sign Detail Recorded Client Recorded Date Recorded By Document 05/09/18 12:25 FRANCES [id number] 05/09/18 12:31 05/09/18 12:25 Wound Center Nurse 2 [Procedure/Treatment] #1 RIGHT UPPER RIB AREA -Time 12:27 -Correct Patient Yes -Correct Side, Site, Position Yes -Correct Procedure Yes -Procedure Performed Yes -Type of Procedure Debridement -Clinical Debridement Subcutaneous -Post Debridement Size (cm) - Length 5.5 -Post Debridement Size (cm) - Width 8.4 -Post Debridement Size (cm) - Depth 3.5 -Total Square Cm 46.20 -Wound/Ulcer Outcome Not Healed -Ulcer Cleansing Rinsed/ Irrigated with Saline -Foul Odor after Cleansing No -Bioengineered Tissue No -Bleeding Controlled with Pressure -Treatment Response Procedure Tolerated Well [See Physician Procedure note for Specifics] Pain Scale: 0-10 Numeric [Pain] -Is Patient Pain Free? Yes Musculoskeletal: No Tenderness to Palpation of Joints or Extremities Psych/Mental Status: Normal Affect, Appropriate Debridement Note Post-Debridement Measurements/Treatment WC - Nurse 2 - General Ulcer CM Notes Start: 05/09/18 12:11 Freq: Status: Active Protocol: Activity Type Activity Date Activity User E-Sign Co-Sign Detail Recorded Client Recorded Date Recorded By Document 05/09/18 12:25 FRANCES [id number] 05/09/18 12:31 FRANCES 05/09/18 12:25 Wound Center Nurse 2 #1 RIGHT UPPER RIB AREA -Time 12:27 -Correct Patient Yes -Correct Side, Site, Position Yes -Correct Procedure Yes -Procedure Performed Yes -Type of Procedure Debridement -Clinical Debridement Subcutaneous -Post Debridement Size (cm) - Length 5.5 -Post Debridement Size (cm) - Width 8.4 -Post Debridement Size (cm) - Depth 3.5 -Total Square Cm 46.20 -Wound/Ulcer Outcome Not Healed -Ulcer Cleansing Rinsed/ Irrigated with Saline -Foul Odor after Cleansing No -Bioengineered Tissue No -Bleeding Controlled with Pressure -Treatment Response Procedure Tolerated Well Pain Scale: 0-10 Numeric Is Patient Pain Free? Yes Wound debrided: Right chest/breast wound Laterality: Right Type of Debridement: Excisional debridement Anesthesia Used: 4% Lidocaine Solution Depth: in the subcutaneous layer Percentage of wound debrided: 100 Instrument Used: 7mm curette Tissue Removed: Subcutaneous tissue and slough Severity: Fat Layer Exposed Amount of bleeding with debridement: Mild Bleeding Controlled with: Pressure Patient tolerated procedure well Assessment/Plan Active Problems (Last Updated 04/13/18 @ 13:50 by Tammy Hoyos) Pseudomonas aeruginosa infection (Acute) Non-pressure chronic ulcer of skin of other sites with fat layer exposed (Acute) Open wound of right chest wall with complication (Acute) Assessment: 1. Nonhealing MRSA ulcer right lateral chest wall. 2. MRSA. 3. Right lateral chest wall abscess. 4. Status post surgical preparation right lateral chest wall lateral breast with incision and drainage and excisional debridement abscess (48 cm square). 5. Pseudomonas aeruginosa Plan: We will do wound VAC holiday for 1 week due to periwound being excoriated and itchy. Will start on Diflucan daily times 7 days and topical nystatin lotion. She will do daily silver dressing changes and use an Ervin wrap to secure dressing so no tape as needed. Continue home antibiotics as prescribed by Dr. Garibay. Prealbumin was 15.1 on 04/16/2018. Encourage nutritional supplementation with protein to help with healing process. Follow-up in 1 week. Code Visit 111xxx-113xx: 64676 Grace subq tissue 20 sq cm/< Add On Codes: [id number] Grace subq tissue add-on - 2
--- NOTE | 2018-05-10 08:14 | PN.PCM_ITS ---
(1) Non-pressure chronic ulcer of skin of other sites with fat layer exposed Status: Acute Current Visit: Yes Code(s): L98.492 - Non-pressure chronic ulcer of skin of other sites with fat layer exposed (2) Open wound of right chest wall with complication Status: Acute Current Visit: Yes Code(s): S21.101A - Unspecified open wound of right front wall of thorax without penetration into thoracic cavity, initial encounter (3) Pseudomonas aeruginosa infection Status: Acute Current Visit: Yes Code(s): A49.8 - Other bacterial infections of unspecified site (4) Cellulitis of chest wall Status: Acute Current Visit: No Code(s): L03.313 - Cellulitis of chest wall (5) MRSA (methicillin resistant Staphylococcus aureus) infection Status: Acute Current Visit: No Code(s): A49.02 - Methicillin resistant Staphylococcus aureus infection, unspecified site Type of Wound Chief Complaint: 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 History of Wound: Surgery 02/22/18 -surgical preparation right lateral chest wall/lateral breast with incision and drainage and excisional debridement abscess (48 cm2). Operative cultures?MRSA. She was discharged on doxycycline. Pre-albumin was 15.0 on 02/22/18. Surgery 04/05/2018 Surgical preparation right lateral chest wall with excision nonhealing painful MRSA ulcer and 10 cm complex secondary wound closure. Surgery 04/18/2018 Surgical preparation right lateral chest wall with incision and drainage and excisional debridement Pseudomonas abscess (40 cm?). Wound VAC restarted, sent home on IV Vancomycin and Cefepime Progress of Wound: Wound is improving. Periwound excoriated and very itchy. Most likely a yeast infection. - Physical Exam Vital Signs Temp Pulse Resp BP 99.3 F H 75 18 150/79 H 05/09/18 12:17 05/09/18 12:17 05/09/18 12:17 05/09/18 12:17 General: Alert, Oriented x3 HEENT: PERRLA Oral: Moist Mucosa, No Gingival or Mucosal Lesions/ Ulcerations Lungs: Normal air movement Cardiovascular: Regular rate Extremities: No edema Skin: Ulcer/ Wound - Right chest/breast ulcer. Wound looking much better this week., Rash Present - Periwound with red excoriated areas. Area very itchy. Wound Measurements and Assessment WC - Nurse 1 - General Ulcer Measurement Start: 05/09/18 12:11 Freq: Status: Active Protocol: Activity Type Activity Date Activity User E-Sign Co-Sign Detail Recorded Client Recorded Date Recorded By Document 05/09/18 12:17 FRANCES [id number] 05/09/18 12:19 05/09/18 12:17 Wound Center Nurse 1 [Ulcer Assessment] #1 RIGHT UPPER RIB AREA -Combined with other wound No -Current Size (cm) - Length 5.5 -Current Size (cm) - Width 8 -Current Size (cm) - Depth 3.5 -Total Square Cm 44.0 -Photo Taken No -Epithelialization Small 1-33% -Tunneling No -Undermining/Tunneling No -Circular Undermining No -Exudate Amt Large (67-100%) -Exudate Type Serosanguineous -Wound Margin Flat & Intact -Granulation Amt Large (67-100%) -Granulation Quality Red -Slough/Fibrin Yes -Necrosis Amt Small (1-33%) -Necrotic Tissue Type Adherent Slough -Structure Exposed N/A -Texture (Nilsa-wound Skin Appearance) Assessed Excoriation Friable Rash -Moisture (Nilsa-wound Skin Appearance Assessed ) Dry/Scaly -Color (Nilsa-wound Skin Appearance) Assessed -Temperature (Nilsa-wound Skin No Abnormality Appearance) (Pt Warm) -Tenderness on Palpation (Nilsa-wound No Skin Appearance) -Ulcer Cleansing Wound Cleanser -Foul Odor after Cleansing No -Anesthetic Used 4% Lidocaine Solution [Edema Assessment] -Lower Limb Edema Present NA - Nurse 2 - General Ulcer CM Notes Start: 05/09/18 12:11 Freq: Status: Active Protocol: Activity Type Activity Date Activity User E-Sign Co-Sign Detail Recorded Client Recorded Date Recorded By Document 05/09/18 12:25 FRANCES [id number] 05/09/18 12:31 05/09/18 12:25 Wound Center Nurse 2 [Procedure/Treatment] #1 RIGHT UPPER RIB AREA -Time 12:27 -Correct Patient Yes -Correct Side, Site, Position Yes -Correct Procedure Yes -Procedure Performed Yes -Type of Procedure Debridement -Clinical Debridement Subcutaneous -Post Debridement Size (cm) - Length 5.5 -Post Debridement Size (cm) - Width 8.4 -Post Debridement Size (cm) - Depth 3.5 -Total Square Cm 46.20 -Wound/Ulcer Outcome Not Healed -Ulcer Cleansing Rinsed/ Irrigated with Saline -Foul Odor after Cleansing No -Bioengineered Tissue No -Bleeding Controlled with Pressure -Treatment Response Procedure Tolerated Well [See Physician Procedure note for Specifics] Pain Scale: 0-10 Numeric [Pain] -Is Patient Pain Free? Yes Musculoskeletal: No Tenderness to Palpation of Joints or Extremities Psych/Mental Status: Normal Affect, Appropriate Debridement Note Post-Debridement Measurements/Treatment WC - Nurse 2 - General Ulcer CM Notes Start: 05/09/18 12:11 Freq: Status: Active Protocol: Activity Type Activity Date Activity User E-Sign Co-Sign Detail Recorded Client Recorded Date Recorded By Document 05/09/18 12:25 FRANCES [id number] 05/09/18 12:31 FRANCES 05/09/18 12:25 Wound Center Nurse 2 #1 RIGHT UPPER RIB AREA -Time 12:27 -Correct Patient Yes -Correct Side, Site, Position Yes -Correct Procedure Yes -Procedure Performed Yes -Type of Procedure Debridement -Clinical Debridement Subcutaneous -Post Debridement Size (cm) - Length 5.5 -Post Debridement Size (cm) - Width 8.4 -Post Debridement Size (cm) - Depth 3.5 -Total Square Cm 46.20 -Wound/Ulcer Outcome Not Healed -Ulcer Cleansing Rinsed/ Irrigated with Saline -Foul Odor after Cleansing No -Bioengineered Tissue No -Bleeding Controlled with Pressure -Treatment Response Procedure Tolerated Well Pain Scale: 0-10 Numeric Is Patient Pain Free? Yes Wound debrided: Right chest/breast wound Laterality: Right Type of Debridement: Excisional debridement Anesthesia Used: 4% Lidocaine Solution Depth: in the subcutaneous layer Percentage of wound debrided: 100 Instrument Used: 7mm curette Tissue Removed: Subcutaneous tissue and slough Severity: Fat Layer Exposed Amount of bleeding with debridement: Mild Bleeding Controlled with: Pressure Patient tolerated procedure well Assessment/Plan Active Problems (Last Updated 04/13/18 @ 13:50 by Tammy Hoyos) Pseudomonas aeruginosa infection (Acute) Non-pressure chronic ulcer of skin of other sites with fat layer exposed (Acute) Open wound of right chest wall with complication (Acute) Assessment: 1. Nonhealing MRSA ulcer right lateral chest wall. 2. MRSA. 3. Right lateral chest wall abscess. 4. Status post surgical preparation right lateral chest wall lateral breast with incision and drainage and excisional debridement abscess (48 cm square). 5. Pseudomonas aeruginosa Plan: We will do wound VAC holiday for 1 week due to periwound being excoriated and itchy. Will start on Diflucan daily times 7 days and topical nystatin lotion. She will do daily silver dressing changes and use an Ervin wrap to secure dressing so no tape as needed. Continue home antibiotics as prescribed by Dr. Garibay. Prealbumin was 15.1 on 04/16/2018. Encourage nutritional supplementation with protein to help with healing process. Follow-up in 1 week. Code Visit [id number]: [id number] Grace subq tissue 20 sq cm/< Add On Codes: 03974 Grace subq tissue add-on - 2
[2018-05-23 11:44] VITALS: BP 120/77; PULSE 68; RESP 18; TEMP 36.3
--- NOTE | 2018-05-23 16:54 | PCM.WC.PN ---
(1) Open wound of right chest wall with complication Status: Acute Qualifiers: Encounter type: sequela Qualified Code(s): S21.101S - Unspecified open wound of right front wall of thorax without penetration into thoracic cavity, sequela Code(s): S21.101A - Unspecified open wound of right front wall of thorax without penetration into thoracic cavity, initial encounter (2) Pseudomonas aeruginosa infection Status: Acute Code(s): A49.8 - Other bacterial infections of unspecified site (3) Cellulitis of chest wall Status: Acute Code(s): L03.313 - Cellulitis of chest wall (4) MRSA (methicillin resistant Staphylococcus aureus) infection Status: Acute Code(s): A49.02 - Methicillin resistant Staphylococcus aureus infection, unspecified site Type of Wound Date of Service: 05/23/18 Chief Complaint: 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 History of Wound: Surgery 02/22/18 -surgical preparation right lateral chest wall/lateral breast with incision and drainage and excisional debridement abscess (48 cm2). Operative cultures?MRSA. She was discharged on doxycycline. Pre-albumin was 15.0 on 02/22/18. Surgery 04/05/2018 Surgical preparation right lateral chest wall with excision nonhealing painful MRSA ulcer and 10 cm complex secondary wound closure. Surgery 04/18/2018 Surgical preparation right lateral chest wall with incision and drainage and excisional debridement Pseudomonas abscess (40 cm?). Wound VAC restarted, sent home on IV Vancomycin and Cefepime Progress of Wound: Wound is improving. Periwound healed, no longer excoriated. - Physical Exam Vital Signs Temp Pulse Resp BP 97.3 F L 68 18 120/77 05/23/18 11:44 05/23/18 11:44 05/23/18 11:44 05/23/18 11:44 General: Alert, Oriented x3, Cooperative HEENT: Atraumatic Oral: Moist Mucosa Extremities: No edema Skin: No rashes - Shayla wound is much improved, no rashes currently, Ulcer/ Wound - Right chest ulcer Wound Measurements and Assessment WC - Nurse 1 - General Ulcer Measurement Start: 05/09/18 12:11 Freq: Status: Active Protocol: Activity Type Activity Date Activity User E-Sign Co-Sign Detail Recorded Client Recorded Date Recorded By Document 05/23/18 11:44 RB [id number] 05/23/18 11:49 05/23/18 11:44 Wound Center Nurse 1 [Ulcer Assessment] #1 RIGHT UPPER RIB AREA -Combined with other wound No -Current Size (cm) - Length 2.5 -Current Size (cm) - Width 6 -Current Size (cm) - Depth 1.4 -Total Square Cm 15.0 -Photo Taken Yes -Tunneling No -Undermining/Tunneling Yes -Undermining/Tunneling Starts (O' 1 clock) -Undermining/Tunneling Ends (O'clock) 3 -Maximum Distance (cm) 3.4 -Circular Undermining No -Classification - Thickness Full Thickness without Exposed Support Structure -Exudate Amt Large (67-100%) -Exudate Type Serosanguineous -Wound Margin Thickened & Rolled Under -Granulation Amt Large (67-100%) -Granulation Quality [place] -Slough/Fibrin Yes -Necrosis Amt Small (1-33%) -Necrotic Tissue Type Adherent Slough -Structure Exposed N/A -Texture (Shayla-wound Skin Appearance) Assessed -Moisture (Shayla-wound Skin Appearance Assessed ) -Color (Shayla-wound Skin Appearance) Assessed -Temperature (Shayla-wound Skin No Abnormality Appearance) (Pt Warm) -Tenderness on Palpation (Shayla-wound No Skin Appearance) -Ulcer Cleansing Rinsed/ Irrigated with Saline -Foul Odor after Cleansing No -Anesthetic Used 4% Lidocaine Solution WC - Nurse 2 - General Ulcer CM Notes Start: 05/09/18 12:11 Freq: Status: Active Protocol: Activity Type Activity Date Activity User E-Sign Co-Sign Detail Recorded Client Recorded Date Recorded By Document 05/23/18 12:09 [id number] 05/23/18 12:10 05/23/18 12:09 Wound Center Nurse 2 [Procedure/Treatment] -Time 12:09 -Correct Patient Yes -Correct Side, Site, Position Yes -Correct Procedure Yes -Procedure Performed Yes -Type of Procedure Debridement -Clinical Debridement Subcutaneous -Post Debridement Size (cm) - Length 1.9 -Post Debridement Size (cm) - Width 6.3 -Post Debridement Size (cm) - Depth 2.0 -Total Square Cm 11.97 -Wound/Ulcer Outcome Not Healed -Ulcer Cleansing Rinsed/ Irrigated with Saline -Foul Odor after Cleansing No -Bioengineered Tissue No -Bleeding Controlled with Pressure -Treatment Response Procedure Tolerated Well [See Physician Procedure note for Specifics] Pain Scale: 0-10 Numeric [Pain] -Is Patient Pain Free? Yes Musculoskeletal: No Tenderness to Palpation of Joints or Extremities Neurological: Neuro grossly intact Psych/Mental Status: Normal Affect, Appropriate Debridement Note Post-Debridement Measurements/Treatment WC - Nurse 2 - General Ulcer CM Notes Start: 05/09/18 12:11 Freq: Status: Active Protocol: Activity Type Activity Date Activity User E-Sign Co-Sign Detail Recorded Client Recorded Date Recorded By Document 05/09/18 12:25 [id number] 05/09/18 12:31 Document 05/23/18 12:09 [id number] 05/23/18 12:10 05/09/18 05/23/18 12:25 12:09 Wound Center Nurse 2 #1 RIGHT UPPER RIB AREA -Time 12:27 12:09 -Correct Patient Yes Yes -Correct Side, Site, Position Yes Yes -Correct Procedure Yes Yes -Procedure Performed Yes Yes -Type of Procedure Debridement Debridement -Clinical Debridement Subcutaneous Subcutaneous -Post Debridement Size (cm) - Length 5.5 1.9 -Post Debridement Size (cm) - Width 8.4 6.3 -Post Debridement Size (cm) - Depth 3.5 2.0 -Total Square Cm 46.20 11.97 -Wound/Ulcer Outcome Not Healed Not Healed -Ulcer Cleansing Rinsed/ Rinsed/ Irrigated with Irrigated with Saline Saline -Foul Odor after Cleansing No No -Bioengineered Tissue No No -Bleeding Controlled with Pressure Pressure -Treatment Response Procedure Procedure Tolerated Well Tolerated Well Pain Scale: 0-10 Numeric Is Patient Pain Free? Yes Yes Wound debrided: Right chest wound Laterality: Right Type of Debridement: Excisional debridement Anesthesia Used: 4% Lidocaine Solution Depth: Down to and including healthy tissue, in the subcutaneous layer Percentage of wound debrided: 100 Instrument Used: 7mm curette Tissue Removed: Subcutaneous tissue and slough Amount of bleeding with debridement: Mild Bleeding Controlled with: Pressure Patient tolerated procedure well Assessment/Plan Assessment: 1. Nonhealing MRSA ulcer right lateral chest wall. 2. MRSA. 3. Right lateral chest wall abscess. 4. Status post surgical preparation right lateral chest wall lateral breast with incision and drainage and excisional debridement abscess (48 cm square). 5. Pseudomonas aeruginosa Plan: She is hesitant to restart the wound VAC due to her shayla wound improvement. Will continue Silver dressing. Discontinue VAC. Discussed with her that it may slow down the wound healing withouth the VAC, she verbalizes understanding. She has completed her home antibiotics and home Diflucan. Prealbumin was 15.1 on 04/16/2018. Encourage nutritional supplementation with protein to help with healing process. Follow-up in 2 weeks. Code Visit [id number]
--- NOTE | 2018-05-24 10:02 | PN.PCM_ITS ---
(1) Open wound of right chest wall with complication Status: Acute Qualifiers: Encounter type: sequela Qualified Code(s): S21.101S - Unspecified open wound of right front wall of thorax without penetration into thoracic cavity, sequela Code(s): S21.101A - Unspecified open wound of right front wall of thorax without penetration into thoracic cavity, initial encounter (2) Pseudomonas aeruginosa infection Status: Acute Code(s): A49.8 - Other bacterial infections of unspecified site (3) Cellulitis of chest wall Status: Acute Code(s): L03.313 - Cellulitis of chest wall (4) MRSA (methicillin resistant Staphylococcus aureus) infection Status: Acute Code(s): A49.02 - Methicillin resistant Staphylococcus aureus infection, unspecified site Type of Wound Date of Service: 05/23/18 Chief Complaint: 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 History of Wound: Surgery 02/22/18 -surgical preparation right lateral chest wall/lateral breast with incision and drainage and excisional debridement abscess (48 cm2). Operative cultures?MRSA. She was discharged on doxycycline. Pre-albumin was 15.0 on 02/22/18. Surgery 04/05/2018 Surgical preparation right lateral chest wall with excision nonhealing painful MRSA ulcer and 10 cm complex secondary wound closure. Surgery 04/18/2018 Surgical preparation right lateral chest wall with incision and drainage and excisional debridement Pseudomonas abscess (40 cm?). Wound VAC restarted, sent home on IV Vancomycin and Cefepime Progress of Wound: Wound is improving. Periwound healed, no longer excoriated. - Physical Exam Vital Signs Temp Pulse Resp BP 97.3 F L 68 18 120/77 05/23/18 11:44 05/23/18 11:44 05/23/18 11:44 05/23/18 11:44 General: Alert, Oriented x3, Cooperative HEENT: Atraumatic Oral: Moist Mucosa Extremities: No edema Skin: No rashes - Shayla wound is much improved, no rashes currently, Ulcer/ Wound - Right chest ulcer Wound Measurements and Assessment WC - Nurse 1 - General Ulcer Measurement Start: 05/09/18 12:11 Freq: Status: Active Protocol: Activity Type Activity Date Activity User E-Sign Co-Sign Detail Recorded Client Recorded Date Recorded By Document 05/23/18 11:44 RB [id number] 05/23/18 11:49 05/23/18 11:44 Wound Center Nurse 1 [Ulcer Assessment] #1 RIGHT UPPER RIB AREA -Combined with other wound No -Current Size (cm) - Length 2.5 -Current Size (cm) - Width 6 -Current Size (cm) - Depth 1.4 -Total Square Cm 15.0 -Photo Taken Yes -Tunneling No -Undermining/Tunneling Yes -Undermining/Tunneling Starts (O' 1 clock) -Undermining/Tunneling Ends (O'clock) 3 -Maximum Distance (cm) 3.4 -Circular Undermining No -Classification - Thickness Full Thickness without Exposed Support Structure -Exudate Amt Large (67-100%) -Exudate Type Serosanguineous -Wound Margin Thickened & Rolled Under -Granulation Amt Large (67-100%) -Granulation Quality [place] -Slough/Fibrin Yes -Necrosis Amt Small (1-33%) -Necrotic Tissue Type Adherent Slough -Structure Exposed N/A -Texture (Shayla-wound Skin Appearance) Assessed -Moisture (Shayla-wound Skin Appearance Assessed ) -Color (Shayla-wound Skin Appearance) Assessed -Temperature (Shayla-wound Skin No Abnormality Appearance) (Pt Warm) -Tenderness on Palpation (Shayla-wound No Skin Appearance) -Ulcer Cleansing Rinsed/ Irrigated with Saline -Foul Odor after Cleansing No -Anesthetic Used 4% Lidocaine Solution WC - Nurse 2 - General Ulcer CM Notes Start: 05/09/18 12:11 Freq: Status: Active Protocol: Activity Type Activity Date Activity User E-Sign Co-Sign Detail Recorded Client Recorded Date Recorded By Document 05/23/18 12:09 [id number] 05/23/18 12:10 05/23/18 12:09 Wound Center Nurse 2 [Procedure/Treatment] -Time 12:09 -Correct Patient Yes -Correct Side, Site, Position Yes -Correct Procedure Yes -Procedure Performed Yes -Type of Procedure Debridement -Clinical Debridement Subcutaneous -Post Debridement Size (cm) - Length 1.9 -Post Debridement Size (cm) - Width 6.3 -Post Debridement Size (cm) - Depth 2.0 -Total Square Cm 11.97 -Wound/Ulcer Outcome Not Healed -Ulcer Cleansing Rinsed/ Irrigated with Saline -Foul Odor after Cleansing No -Bioengineered Tissue No -Bleeding Controlled with Pressure -Treatment Response Procedure Tolerated Well [See Physician Procedure note for Specifics] Pain Scale: 0-10 Numeric [Pain] -Is Patient Pain Free? Yes Musculoskeletal: No Tenderness to Palpation of Joints or Extremities Neurological: Neuro grossly intact Psych/Mental Status: Normal Affect, Appropriate Debridement Note Post-Debridement Measurements/Treatment WC - Nurse 2 - General Ulcer CM Notes Start: 05/09/18 12:11 Freq: Status: Active Protocol: Activity Type Activity Date Activity User E-Sign Co-Sign Detail Recorded Client Recorded Date Recorded By Document 05/09/18 12:25 [id number] 05/09/18 12:31 Document 05/23/18 12:09 [id number] 05/23/18 12:10 05/09/18 05/23/18 12:25 12:09 Wound Center Nurse 2 #1 RIGHT UPPER RIB AREA -Time 12:27 12:09 -Correct Patient Yes Yes -Correct Side, Site, Position Yes Yes -Correct Procedure Yes Yes -Procedure Performed Yes Yes -Type of Procedure Debridement Debridement -Clinical Debridement Subcutaneous Subcutaneous -Post Debridement Size (cm) - Length 5.5 1.9 -Post Debridement Size (cm) - Width 8.4 6.3 -Post Debridement Size (cm) - Depth 3.5 2.0 -Total Square Cm 46.20 11.97 -Wound/Ulcer Outcome Not Healed Not Healed -Ulcer Cleansing Rinsed/ Rinsed/ Irrigated with Irrigated with Saline Saline -Foul Odor after Cleansing No No -Bioengineered Tissue No No -Bleeding Controlled with Pressure Pressure -Treatment Response Procedure Procedure Tolerated Well Tolerated Well Pain Scale: 0-10 Numeric Is Patient Pain Free? Yes Yes Wound debrided: Right chest wound Laterality: Right Type of Debridement: Excisional debridement Anesthesia Used: 4% Lidocaine Solution Depth: Down to and including healthy tissue, in the subcutaneous layer Percentage of wound debrided: 100 Instrument Used: 7mm curette Tissue Removed: Subcutaneous tissue and slough Amount of bleeding with debridement: Mild Bleeding Controlled with: Pressure Patient tolerated procedure well Assessment/Plan Assessment: 1. Nonhealing MRSA ulcer right lateral chest wall. 2. MRSA. 3. Right lateral chest wall abscess. 4. Status post surgical preparation right lateral chest wall lateral breast with incision and drainage and excisional debr idement abscess (48 cm square). 5. Pseudomonas aeruginosa Plan: She is hesitant to restart the wound VAC due to her shayla wound improvement. Will continue Silver dressing. Discontinue VAC. Discussed with her that it may slow down the wound healing withouth the VAC, she verbalizes understanding. She has completed her home antibiotics and home Diflucan. Prealbumin was 15.1 on 04/16/2018. Encourage nutritional supplementation with protein to help with healing process. Follow-up in 2 weeks. Code Visit [id number]
[2018-06-06 09:33] VITALS: BP 139/83; PULSE 68; RESP 16; TEMP 36.6
--- NOTE | 2018-06-06 22:20 | PCM.WC.PN ---
Type of Wound Date of Service: 06/06/18 Chief Complaint: 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 History of Wound: Surgery 02/22/18 - Surgical preparation right lateral chest wall/lateral breast with incision and drainage and excisional debridement abscess (48 cm2). Operative cultures - MRSA. She was discharged on doxycycline. Pre-albumin was 15.0 on 02/22/18. Surgery 04/05/2018 - Surgical preparation right lateral chest wall with excision nonhealing painful MRSA ulcer and 10 cm complex secondary wound closure. Operative culture showed Pseudomonas aeroginosa. The incision became compromised secondary to the Pseudomonas and she was admitted for IV antibiotics. Surgery 04/18/2018 - Surgical preparation right lateral chest wall with incision and drainage and excisional debridement Pseudomonas abscess (40 cm?). Wound VAC restarted, sent home on IV Vancomycin and Cefepime. The IV antibiotics have been completed. The VAC has been stopped because of periwound issues. She is tolerating Silver dressing changes. Today she denies fever. Her appetite is good. She does complain of wound pain. Progress of Wound: Improved. - Physical Exam Vital Signs Temp Pulse Resp BP 97.8 F 68 16 139/83 H 06/06/18 09:33 06/06/18 09:33 06/06/18 09:33 06/06/18 09:33 Wound Measurements and Assessment WC - Nurse 1 - General Ulcer Measurement Start: 05/09/18 12:11 Freq: Status: Active Protocol: Activity Type Activity Date Activity User E-Sign Co-Sign Detail Recorded Client Recorded Date Recorded By Document 06/06/18 09:33 [id number] 06/06/18 09:38 06/06/18 09:33 Wound Center Nurse 1 [Ulcer Assessment] #1 RIGHT UPPER RIB AREA -Combined with other wound No -Current Size (cm) - Length 2.5 -Current Size (cm) - Width 5.0 -Current Size (cm) - Depth 1.9 -Total Square Cm 12.50 -Photo Taken No -Epithelialization None Present -Tunneling No -Undermining/Tunneling Yes -Undermining/Tunneling Starts (O' 1 clock) -Undermining/Tunneling Ends (O'clock) 3 -Maximum Distance (cm) 2.4 -Circular Undermining No -Exudate Amt Large (67-100%) -Exudate Type Serosanguineous -Wound Margin Distinct, Outline Attached -Granulation Amt Medium (34-66%) -Granulation Quality Red -Slough/Fibrin Yes -Necrosis Amt Medium (34-66%) -Necrotic Tissue Type Adherent Slough -Structure Exposed Fat Layer Exposed -Texture (Nilsa-wound Skin Appearance) Assessed Scarring -Moisture (Nilsa-wound Skin Appearance Assessed ) Maceration Dry/Scaly -Color (Nilsa-wound Skin Appearance) No Abnormality Assessed -Temperature (Nilsa-wound Skin No Abnormality Appearance) (Pt Warm) -Tenderness on Palpation (Nilsa-wound No Skin Appearance) -Ulcer Cleansing Rinsed/ Irrigated with Saline -Foul Odor after Cleansing No -Anesthetic Used 4% Lidocaine Solution - Nurse 2 - General Ulcer CM Notes Start: 05/09/18 12:11 Freq: Status: Active Protocol: Activity Type Activity Date Activity User E-Sign Co-Sign Detail Recorded Client Recorded Date Recorded By Document 06/06/18 10:12 [id number] 06/06/18 10:14 06/06/18 10:12 Wound Center Nurse 2 [Procedure/Treatment] -Time 10:12 -Correct Patient Yes -Correct Side, Site, Position Yes -Correct Procedure Yes -Procedure Performed Yes -Type of Procedure Debridement -Clinical Debridement Subcutaneous -Post Debridement Size (cm) - Length 2.5 -Post Debridement Size (cm) - Width 5.1 -Post Debridement Size (cm) - Depth 2.0 -Total Square Cm 12.75 -Wound/Ulcer Outcome Not Healed -Ulcer Cleansing Rinsed/ Irrigated with Saline -Foul Odor after Cleansing No -Bioengineered Tissue No -Bleeding Controlled with Pressure -Treatment Response Procedure Tolerated Well [See Physician Procedure note for Specifics] Pain Scale: 0-10 Numeric [Pain] -Is Patient Pain Free? Yes Debridement Note Post-Debridement Measurements/Treatment - Nurse 2 - General Ulcer CM Notes Start: 05/09/18 12:11 Freq: Status: Active Protocol: Activity Type Activity Date Activity User E-Sign Co-Sign Detail Recorded Client Recorded Date Recorded By Document 05/09/18 12:25 [id number] 05/09/18 12:31 Document 05/23/18 12:09 [id number] 05/23/18 12:10 Document 06/06/18 10:12 [id number] 06/06/18 10:14 JF 05/09/18 05/23/18 06/06/18 12:25 12:09 10:12 Wound Center Nurse 2 #1 RIGHT UPPER RIB AREA -Time 12:27 12:09 10:12 -Correct Patient Yes Yes Yes -Correct Side, Site, Position Yes Yes Yes -Correct Procedure Yes Yes Yes -Procedure Performed Yes Yes Yes -Type of Procedure Debridement Debridement Debridement -Clinical Debridement Subcutaneous Subcutaneous Subcutaneous -Post Debridement Size (cm) - Length 5.5 1.9 2.5 -Post Debridement Size (cm) - Width 8.4 6.3 5.1 -Post Debridement Size (cm) - Depth 3.5 2.0 2.0 -Total Square Cm 46.20 11.97 12.75 -Wound/Ulcer Outcome Not Healed Not Healed Not Healed -Ulcer Cleansing Rinsed/ Rinsed/ Rinsed/ Irrigated with Irrigated with Irrigated with Saline Saline Saline -Foul Odor after Cleansing No No No -Bioengineered Tissue No No No -Bleeding Controlled with Pressure Pressure Pressure -Treatment Response Procedure Procedure Procedure Tolerated Well Tolerated Well Tolerated Well Pain Scale: 0-10 Numeric Is Patient Pain Free? Yes Yes Yes Wound debrided: #1 Right lateral chest wall. Laterality: Right Wound Grade/Stage: 3. Type of Debridement: Excisional debridement Anesthesia Used: 4% Lidocaine Solution Depth: Down to and including healthy tissue, in the subcutaneous layer Percentage of wound debrided: 100 Instrument Used: 7mm curette Tissue Removed: subcutaneous tissue. Severity: Fat Layer Exposed Amount of bleeding with debridement: Mild Bleeding Controlled with: Pressure Patient tolerated procedure well Assessment/Plan Assessment: 1. Nonhealing MRSA and Pseudomonas ulcer right lateral chest wall. 2. Pseudomonas abscess right lateral chest wall. 3. MRSA. 4. s/p surgical preparation right lateral chest wall with incision and drainage and excisional debridement Pseudomonas abscess (40 cm2). Plan: Continue Silver dressing changes daily. She has completed her IV antibiotics with Vancomycin and Cefepime. She finished the Diflucan for the periwound fungal rash. Prealbumin was 15.1 on 04/16/2018. Encourage nutritional supplementation with protein to help with healing process. Renewed her Percocet for pain (30 tabs) to be dispensed on 06/08/18. Follow-up one week to see Nicole Nurse Practitioner.
== END 2018-06-08 23:59 ==
LOC: WC 09:30
PROVIDERS: Family Provider Student in an Organized Health Care Education/Training Program; PCP Student in an Organized Health Care Education/Training Program; Visit Provider Surgery
DX: L98.492 Non-pressure chronic ulcer of skin of other sites with fat layer exposed (principal); L03.313 Cellulitis of chest wall; Z86.14 Personal history of Methicillin resistant Staphylococcus aureus infection
CPT/HCPCS: 11042; 11045

== ENCOUNTER 2018-06-27 03:28 | Observation (INO) | payer MEDICAID, SELFPAY ==
[2018-06-27] VITALS (16 sets, daily range): BP systolic 116–135; BP diastolic 44–88; PULSE 58–97; RESP 12–24; TEMP 36.5–37; O2SAT 95–100; BMI 37.0; BMI 36.4; BMI 36.2
--- NOTE | 2018-06-27 03:43 | RAD_ITS ---
STUDY: X-RAY - ACUTE ABDOMINAL SERIES REASON FOR EXAM: Female, 23 years old. Epigastric abdominal pain. TECHNIQUE: Single view of the chest. Supine, and erect view(s) of the abdomen were obtained. COMPARISON: CT of the abdomen and pelvis dated July 14, 2017. FINDINGS: The lungs are clear and hyperexpanded. There is heterogeneous right basilar airspace consolidation. This suggests possible pneumonia. There is borderline cardiomegaly. Normal mediastinum and yissel. Normal visualized pulmonary arteries. Normal visualized aortic arch and descending thoracic aorta. There is a non-specific bowel gas pattern. There is no obvious organomegaly, mass, dilated bowel or pathologic calcifications. Surgical clips are visible in pelvis probably related to tubal ligation. Patient has the extensive surgery of the thoracic or lumbar spine with Henderson rods. There is mild residual curvature of the lumbar spine with convexity towards the left. RAD/Acute Abdomen Inc Chest IMPRESSION: 1. Heterogeneous right basilar airspace consolidation possibly representing pneumonia. 2. No radiographic evidence of acute intra-abdominal disease. Electronically Signed: Karen Solares MD at 4:20 EST , Service support ,
--- NOTE | 2018-06-27 03:47 | ED.DCSUM_ITS ---
- ER Visit Summary Date of Service: 06/27/18 Chief Complaint: Abdominal pain, nausea vomiting History of Present Illness: The patient is a 23 F 2-day history of epigastric abdominal pain nausea and vomiting. States too many to count. No diarrhea. Normal bowel movement yesterday. No melena. Subjective fever, chills, sweats. States she has pain with urination. Bilateral tubal ligation. History of appendectomy. Patient is recovering from right chest wall wound followed by Dr. Garibay. No current antibiotics. Physical Examination: General: Alert and oriented ?3, no acute distress HEENT: Normocephalic, atraumatic. Moist mucosa membranes Neck: supple, nontender. Cardiovascular: Regular rate and rhythm, no murmurs Respiratory: Normal breath sounds, symmetric, no distress Abdomen: Soft, nondistended, tender palpation epigastric greater than right upper quadrant. No rebound or guarding. Extremities: Nontender, no edema, pulses intact ?4 Neuro: no focal neurological deficits. Test Results: WBC 5.9 hemoglobin 12.1. Platelets 227. Creatinine 0.67. Potassium 3.6. Lipase 176. LFTs: Total bili 0.4, direct bili 0.2. Alk phos 152, ALT 132, AST 263. HCG negative. Abdominal series: right lower lobe infiltrate per radiology, no acute abdominal process. Right upper quadrant ultrasound pending. UA negative. Emergency Department Course and Treatment: Patient vital signs stable, pain epigastric mild right upper quadrant. Abdominal series negative for acute abdominal process reported potential pneumonia right lower lobe, patient no significant cough. Afebrile. White count normal. Labs however did note slightly elevated liver enzymes, lipase is normal. Initially treated with morphine, Zofran, Protonix reported no relief. I performed a bedside ultrasound, sonogram Ken's sign, there was concerns of sludge in the gallbladder, did not appreciate any thickening or free fluid. Attempted GI cocktail, reports no relief. Patient treated additional Dilaudid IV at 0530. With elevated liver enzymes, will obtain gallbladder ultrasound for formal evaluation with a.m. arrival. Patient will be signed out to morning physician to follow-up. Treatment Plan: [] Disposition: Pending Impression: 1. Abdominal pain 2. Nausea and vomiting This note was generated with [employer] dictation software. It may contain incorrect words, spelling, and punctuation that were not noted in review of the chart prior to signing <Nishant Marin Filed: 06/27/18 07:27> - ER Visit Summary Date of Service: 06/27/18 Patient was endorsed to me by the outgoing physician. Patient's gallbladder ultrasound shows a positive sonographic Ken's with gallstones. Patient continues to have intractable right upper quadrant pain. In the setting of her gallstones, the locale of her pain, and her transaminitis this seems consistent with potential cholecystitis. I contacted Dr. Cleaning, who will see the patient for definitive surgical management This note was generated with [employer] dictation software. It may contain incorrect words, spelling, and punctuation that were not noted in review of the chart prior to signing <Jackson Leslie Filed: 06/27/18 09:36> ED Disposition <Nishant Marin Filed: 06/27/18 07:27> <Jackson Leslie Filed: 06/27/18 09:36> - Plan for ED Patient: Chief Complaint: Abd Pain Referrals: Dario Poe DO [Primary Care Provider] -
[2018-06-27] MEDS: Ondansetron 4 MG/2 ML Vial IV ×3 (03:54→20:32)
[2018-06-27] MEDS: Morphine 4 MG/ML Syringe IV (03:54)
[2018-06-27] MEDS: 0.9% Normal Saline 1,000 ML 1000 ML IV (03:54)
[2018-06-27 04:29] LABS: Absolute Lymphocyte Count 1.74 X10^3/ul (0.83-4.51); Absolute Neutrophil Count 3.6 X10^3/uL (2.0-7.7); Basophil# 0.01 X10^3/uL; Basophil% 0.2 % (0-1); Eosinophil# 0.04 X10^3/uL; Eosinophils% 0.7 % (0-5); Hematocrit 38.1 % (37-47); Hemoglobin 12.1 g/dl (12.0-15.0); Lymphocyte # 1.74 X10^3/ul (4.0); Lymphocyte % 29.7 % (19-41); Mean Corp Hgb Conc 31.8 g/gl (32-36); Mean Corpuscular Hgb 26.3 pg (27.0-32.0); Mean Corpuscular Volume 82.8 fL (81-99); Monocyte# 0.52 X10^3/uL; Monocyte% 8.9 % (0-10); Neutrophil # 3.55 X10^3/uL (2.7-7.7); Neutrophil % 60.5 % (47-70); Platelet Count 221 K/mm3 (150-450); RBC Distribution Width CV 14.8 % (11.6-14.6); RBC Distribution Width SD 44.9 fl (35.1-43.9); White Blood Count 5.9 K/mm3 (4.4-11.0)
[2018-06-27 04:31] LABS: POSITIVE COUNT NO; POSITIVE DIFFERENTIAL NO; POSITIVE MORPHOLOGY NO
[2018-06-27 04:33] LABS: AST(SGOT) 263 U/L (15-37); Alanine Aminotransfer ALT/SGPT 132 U/L (13-56); Albumin, Serum 3.7 g/dL (3.2-5.0); Alkaline Phosphatase 152 U/L (45-117); Anion Gap 9 (5-15); BUN 5 mg/dL (7-18); BUN/Creat Ratio 7.5 RATIO (10-20); Bilirubin, Direct 0.21 mg/dL (0.00-0.30); Calcium,Total 8.4 mg/dL (8.5-10.1); Chloride 108 mmol/L (98-107); Creatinine, Serum 0.67 mg/dL (0.55-1.02); EST Glomerular Filtration Rate 114 mL/min (>60); Est Glom Filt Rate - Afr Amer 138 mL/min (>60); Estimated Creatinine Clearance 120.16 ml/min; Globulin 3.7 g/dL (2.2-4.2); Glucose 99 mg/dL (74-106); Lipase 176 U/L (73-393); Potassium 3.6 mmol/L (3.5-5.1); Protein, Total 7.4 g/dL (6.4-8.2); Sodium Level 143 mmol/L (136-145)
[2018-06-27 04:42] LABS: Pregnancy, Serum, hCG Quali. NEGATIVE Negative (0-9 Nonpreg)
[2018-06-27] MEDS: Mag Hydrox/Al Hydrox/Simeth 30 ML UDC PO (04:50)
--- NOTE | 2018-06-27 05:16 | ED.RN ---
PT REQUESTING PAIN MEDICATION. DR RAMIREZ NOTIFIED
--- NOTE | 2018-06-27 05:28 | US_ITS ---
STUDY: ABDOMINAL ULTRASOUND - RIGHT UPPER QUADRANT REASON FOR VISIT: Female, 23 years old. Right upper quadrant without pain for 2 days TECHNIQUE: Ultrasound evaluation of the right upper quadrant was performed with real-time and static briggs-scale imaging. TECHNICAL QUALITY: Adequate. COMPARISON: CT of the abdomen and pelvis dated July 14, 2017. FINDINGS: Liver: The liver measures cm. There is normal echogenicity of the liver. The bile ducts are within normal limits. There is hepatic color flow. The direction of portal flow is hepatopetal. There is no demonstrated mass lesion. Gallbladder: Normal distended gallbladder. The gallbladder wall measures 3.2 mm. There is a positive sonographic Ken's sign. There is no pericholecystic fluid. There are multiple echogenic structures within the gallbladder, consistent with multiple gallstones. Common Bile Duct (C.B.D.): The common bile duct measures 3.3 mm. Pancreas: Normal size of the head, body and tail of the pancreas. There is increased echogenicity of the pancreas. There is no demonstrated pancreatic mass or cyst. Right Kidney: Normal size of the right kidney. The right kidney measures 10.7 x 4.4 x 5.7 cm. Normal renal cortex. The right cortex measures 2.5 cm. There is no demonstrated renal mass or cyst. There is no right hydronephrosis. US/Gallbladder IMPRESSION: Cholelithiasis with positive sonographic Ken's sign suggest possible acute cholecystitis. Electronically Signed: Karen Solares MD at 8:37 EST , Service support ,
[2018-06-27] MEDS: HYDROmorphone 1 MG/ML Syringe IV ×2 (05:33→07:04)
[2018-06-27] MEDS: 0.9% Normal Saline 1,000 ML 150 ML IV (06:48)
[2018-06-27 07:04] LABS: Mucous, Urine 0 SEEN /hpf (<or=2+); Red Blood Cells-Urine 0 SEEN /hpf (0-5); White Blood Cells 0 SEEN /hpf (0-5)
[2018-06-27 07:12] LABS: Color, Urine Yellow (Yellow); Glucose, Dipstick Normal (Normal); Ketone-Dipstick Negative (Negative); Leukocyte Esterase-Dipstick Negative /ul (Negative); Nitrite-Dipstick Negative (Negative); Occult Blood-Urine Negative /ul (Negative); Protein-Dipstick Negative (Negative); Urine Bilirubin Dipstick Negative (Negative); Urine Clarity Sl. Cloudy (Clear); Urine Urobilinogen Normal (Normal)
[2018-06-27 07:18] LABS: Bacteria 1+ /hpf (None Seen); Squamous Epithelial Cells - UA 0-5 SEEN /hpf (5-10)
[2018-06-27] MEDS: HYDROmorphone 0.5 MG/0.5 ML SYRINGE IV ×2 (10:00→23:03)
--- NOTE | 2018-06-27 10:59 | PCM.HP.STD ---
Problem List (1) Right upper quadrant abdominal pain Status: Acute (2) Acute cholecystitis Status: Acute History of Present Illness Date of Admission: 06/27/18 Chief Complaint: Epigastric/right upper quadrant pain. Nausea. Vomiting The patient is a 23 year old F who presents with a 2 day history of epigastric pain, nausea, vomiting. Patient states she is unsure what brought this pain on. Patient does not associate this pain with food however she has not paid too much attention to her diet. Patient stated she has had a dull pain/discomfort which has woken her up from sleep at night for the last several months. She did not relate this discomfort to anything specific. She notes stress within her life with her 3 children. She notes constipation more lately. She denies change in color of stool. 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 She has had previous surgery per Dr. Garibay in February twice. 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 She is currently being seen by the wound center weekly for debridement and dressing changes. She had to have a PICC line placed for IV antibiotics. This was discontinued at the beginning of April. She noted finding out she had an allergy to Vanco throughout all of this. Patient notes abdominal surgeries include tubal ligation and appy. She has delivered 3 children vaginally without any complications. She has also had a anne-marie placed in her back. Patient denies previous history of gallbladder disease. She denies smoking and alcohol use. She denies previous myocardial infarction, stroke and blood clots. She denies previously being seen by cardiology. 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) BMI 38.0-38.9,adult (Chronic) Depression (Chronic) Medical History: Medical History (Last Reviewed 06/27/18 @ 11:21 by Caity Sow PA-C) Anxiety and depression F41.9, F32.9 Back problem M53.9 Gallstones K80.20 Kidney stones N20.0 Allergies No Known Allergies Allergy (Verified 05/10/18 16:31) Home Medications: Ambulatory Orders Medication Instructions Recorded diazepam 5 mg tablet 5 mg PO 4X/DAY PRN #30 tab 05/09/18 buPROPion XL [Wellbutrin Xl] 300 mg PO DAILY 05/10/18 Escitalopram Oxalate [Lexapro] 5 mg PO DAILY 05/11/18 DiphenhydrAMINE [Benadryl] 25 mg PO TID PRN PRN #30 cap 05/13/18 Ferrous Sulfate [Iron] 325 mg PO BID #60 tab 05/13/18 Gauze Bandage [Bandage Roll] 1 ea TP .QDAILY #30 bandage 05/13/18 Oxycodone HCl/Acetaminophen 1 - 2 tab PO 4X/DAY PRN PRN 7 Days 05/13/18 [Percocet 5-325] #40 tab Silver/Hydrocolloid Dressing 1 ea TP .QDAILY 30 Days #30 bandage 05/13/18 [Aquacel-Ag W-Hydrofiber Dress] Surgical History: Surgical History (Last Reviewed 06/27/18 @ 11:21 by Caity Sow PA-C) History of appendectomy Z90.49 History of back surgery Z98.890 2007 History of tubal ligation Z98.51 Surgical History: appendectomy, - - Tubal ligation, back surgery for scoliosis Psychiatric History: No pertinent psych hx 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 Lives: Spouse/ Significant Other Smoking Status: Never smoker Alcohol: None - *Family History Maternal Family History: Family History (Last Reviewed 06/27/18 @ 11:21 by Caity Sow PA-C) Mother Diabetes Hypertension Father Hypertension Grandmother Diabetes History Items: No pertinent history Paternal Family History: Family History (Last Reviewed 06/27/18 @ 11:21 by Caity Sow PA-C) Mother Diabetes Hypertension Father Hypertension Grandmother Diabetes History Items: No pertinent history Review of Systems Constitutional: Reports: Anorexia HEENT: Denies: Head Aches, Sinus Congestion, Sinus Drainage Cardiovascular: Denies: Chest Pain, Palpitations Respiratory: Denies: Cough, Shortness of breath at rest, Sputum production Gastrointestinal: Reports: Abdominal Pain, Constipation, Nausea, Vomiting Genitourinary: Denies: Dysuria Musculoskeletal: Reports: Back Pain. Denies: Joint Pain, Joint Tenderness Skin: Denies: Rash, Wounds Neurological: Denies: Numbness, Tingling, Focal weakness Psychiatric: Denies: Anxiety, Depression, Homicidal Ideations, Suicidal Ideations Hematologic/ Lymphatic: Denies: Easy Bruising, Easy Bleeding VTE Information - Inpt Only VTE Present on Admission: Yes VTE Mechan Device Prophylaxis: SCD's Patient Problems: Active and Suspected Problems (Last Reviewed 05/10/18 @ 21:13 by Bucky Vega MD) Right upper quadrant abdominal pain (Acute) Acute cholecystitis (Acute) - Physical Exam General: Alert, Oriented x3, Cooperative HEENT: Atraumatic, PERRLA, EOMI, Normocephalic Neck: Supple, No JVD, Negative Carotid Bruits Lungs: Diminished - bilateral bases Cardiovascular: Regular rate, No murmurs Abdomen: Soft, Hypoactive Bowel Sounds, Obese, Guarding, Tender - epigastric, RUQ Extremities: No edema, Capillary Refill Less than 3 Seconds Skin: No rashes, No breakdown Musculoskeletal: No Tenderness to Palpation of Joints or Extremities Neurological: Cranial nerves II-XII grossly intact, Neuro grossly intact Psych/Mental Status: Normal Affect, Appropriate Vital Signs Temp Pulse Resp BP Pulse Ox 98.5 F 97 16 130/77 H 97 06/27/18 03:28 06/27/18 10:02 06/27/18 10:02 06/27/18 10:02 06/27/18 10:02 Oxygen Delivery Method Room Air Weight: 229 lb 15.074 oz Body Mass Index (BMI) 37.0 Laboratory Tests Past 24 Hrs 06/27/18 06/27/18 06/27/18 03:30 03:30 03:30 WBC 5.9 RBC 4.60 Hgb 12.1 Hct 38.1 MCV 82.8 MCH 26.3 L MCHC 31.8 L RDW 14.8 H RDW Differential 44.9 H Plt Count 221 MPV 11.0 Immature Gran % (Auto) 0.000 Neut % (Auto) 60.5 Lymph % (Auto) 29.7 [place] % (Auto) 8.9 Eos % (Auto) 0.7 Baso % (Auto) 0.2 Absolute Neuts (auto) 3.6 Absolute Lymphs (auto) 1.74 Total Counted Not Reportable Sodium 143 Potassium 3.6 Chloride 108 H Carbon Dioxide 26.0 Anion Gap 9 BUN 5 L Creatinine 0.67 Estim Creat Clear Calc 120.16 Est GFR (MDRD) Af Amer 138 Est GFR (MDRD) Non-Af 114 BUN/Creatinine Ratio 7.5 L Glucose 99 Calcium 8.4 L Total Bilirubin 0.40 Direct Bilirubin 0.21 AST 263 H ALT 132 H Alkaline Phosphatase 152 H Total Protein 7.4 Albumin 3.7 Globulin 3.7 Lipase 176 Serum , Qual NEGATIVE Urine Color Urine Clarity Urine pH Ur Specific [place] Urine Protein Urine Glucose (UA) Urine Ketones Urine Occult Blood Urine Nitrite Urine Bilirubin Urine Urobilinogen Ur Leukocyte Esterase Urine RBC Urine WBC Ur Squamous Epith Cells Urine Bacteria Urine Mucus 06/27/18 07:00 WBC RBC Hgb Hct MCV MCH MCHC RDW RDW Differential Plt Count MPV Immature Gran % (Auto) Neut % (Auto) Lymph % (Auto) [place] % (Auto) Eos % (Auto) Baso % (Auto) Absolute Neuts (auto) Absolute Lymphs (auto) Total Counted Sodium Potassium Chloride Carbon Dioxide Anion Gap BUN Creatinine Estim Creat Clear Calc Est GFR (MDRD) Af Amer Est GFR (MDRD) Non-Af BUN/Creatinine Ratio Glucose Calcium Total Bilirubin Direct Bilirubin AST ALT Alkaline Phosphatase Total Protein Albumin Globulin Lipase Serum , Qual Urine Color Yellow Urine Clarity Sl. Cloudy Urine pH 8.0 Ur Specific [place] 1.010 Urine Protein Negative Urine Glucose (UA) Normal Urine Ketones Negative Urine Occult Blood Negative Urine Nitrite Negative Urine Bilirubin Negative Urine Urobilinogen Normal Ur Leukocyte Esterase Negative Urine RBC 0 SEEN Urine WBC 0 SEEN Ur Squamous Epith Cells 0-5 SEEN Urine Bacteria 1+ Urine Mucus 0 SEEN Assessment/Plan All Active Problems (Last Reviewed 05/10/18 @ 21:13 by Bucky Vega MD) Right upper quadrant abdominal pain (Acute) Acute cholecystitis (Acute) Drug induced fever (Acute) Pancytopenia with fever (Acute) Pancytopenia (Acute) Iron deficiency anemia (Acute) Pseudomonas aeruginosa infection (Acute) Open wound of right chest wall with complication (Acute) Cellulitis of right breast (Acute) Cellulitis of chest wall (Acute) Abscess of chest wall (Acute) Cellulitis and abscess of other specified site (Acute) MRSA (methicillin resistant Staphylococcus aureus) infection (Acute) Abscess of right breast (Ruled-out) Acute pyelonephritis (Resolved) I am following this patient in conjunction with Dr. Cleaning Impression: Right upper quadrant pain/epigastric pain. Acute cholecystitis. Plan: I have discussed this patient with Dr. Cleaning. Dr. Cleaning will plan to perform a laparoscopic cholecystectomy with intraoperative cholangiogram. Procedure details, risks and benefits have been explained to the patient and her significant other. Patient has had the opportunity to ask and have questions answered. Patient verbally understands and agrees with the plan. Will plan to admit, IV hydrate, control pain, IV Protonix, keep NPO for surgery later today. Dr. Cleaning will evaluate prior to surgery. Thank you for allowing us to participate in this patient's care. My recommendations will be available via electronic medical record. Code Visit Office Visits / Consults: [id number] IP Consult L3
--- NOTE | 2018-06-27 12:00 | GALL_PTH ---
PATIENT: SANTIAGO SALGUERO LOC: MS3 U#:[id number] AGE/SX: 23/F ROOM: MS313 RE06/27/[address]: Dr. Laura Cleaning MD : [id number] BED: 1 DIS: 06/28/2018 SPEC #: [id number] RECD: 06/28/18 10:24 STATUS: LANA REDiana #: [id number] SUGEY: 06/27/18 12:[address]: Laura Cleaning DEPT: SURGICAL PATHOLOGY RECD BY: Blaine Castro ENTERED: 06/28/18 11:52 SP TYPE: BRITTNEE AGUILAR DR: Dr. Dario Poe, DO Tissues: Gallbladder, NOS Procedures: Surgery Specimen Level III HEADER OPERATION: Laparoscopic cholecystectomy with IOC PRE-OP DIAGNOSIS: Right upper quadrant abdominal pain, acute cholecystitis TISSUE SUBMITTED: Gallbladder and contents MICROSCOPIC DIAGNOSIS Gallbladder and contents: Chronic cholecystitis and cholelithiasis. A pericystic lymph node with reactive changes. SJ:mychal 06/29/18 MICROSCOPIC DESCRIPTION Slides are reviewed. GROSS DESCRIPTION Received is one container labeled with the patient's name and designated gallbladder. The specimen consists of a gallbladder measuring 10 x 2 x 2 cm. The external surface is smooth and glistening. Focally, it is granular, hemorrhagic and contains cautery artifact. The lumen of the gallbladder contains greenish mucoid bile and multiple yellow-portillo calculi ranging in size from 0.2 to 0.5 cm in greatest dimension. The mucosa is bile-stained and without any mass lesions. The gallbladder wall averages 0.2 cm in thickness and is free of mass lesions. Assembler Brazer sections of the gallbladder and the cystic duct are submitted in one cassette. / AM:mychal 06/28/18 More sections are submitted in cassette 2. / SJ:mychal 06/29/18 TC:3 CPT: 26315
--- NOTE | 2018-06-27 12:55 | RAD_ITS ---
PROCEDURE: INTRAOPERATIVE CHOLANGIOGRAM. REASON FOR EXAM: Female, 23 years old. Cholelithiasis, cholecystitis. FLUOROSCOPY TIME (if supplied): (0:28) minutes/seconds TECHNIQUE: Real-time fluoroscopy was provided during intraoperative contrast infusion via the cystic duct during intraoperative fluoroscopic spot films are submitted. COMPARISON: CT abdomen and pelvis without contrast July 14, 2017; acute abdomen series and right upper quadrant ultrasound earlier today. FINDINGS: Poorly visualized intrahepatic bile ducts Normal caliber extrahepatic bile ducts. Mild luminal contour irregularity near the level of the sphincter of Jerald, but contrast flows to the duodenum. No discrete filling defect to indicate a common bile duct stone. RAD/Cholangiogram/ O R,Initial IMPRESSION: Normal intraoperative cholangiogram. Electronically Signed: Anurag Miranda MD at 19:47 EST , Service support ,
[2018-06-27] MEDS: Morphine 2 MG/ML Syringe IV ×2 (13:01→18:49)
--- NOTE | 2018-06-27 13:18 | EKG12_ITS ---
Test Reason : PRE-OP Blood Pressure : / mmHG Vent. Rate : 054 BPM Atrial Rate : 054 BPM P-R Int : 128 ms QRS Dur : 100 ms QT Int : 438 ms P-R-T Axes : 020 024 001 degrees QTc Int : 415 ms Sinus bradycardia Otherwise normal ECG Confirmed by DOMINIK MADDEN, ANISA ([id number]), acquisition editor MADISON SALGUERO ([id number]) on 07/01/2018 1:44:14 PM Referred By: JENARO Confirmed By:ANISA LEHMAN MD
--- NOTE | 2018-06-27 13:27 | NURSING ---
Was consulted to see patient for a chronic right breast wound. pt is being taken down to OR at this time. Not able to assess at this time. will get orders for dressing changes.
[2018-06-27] MEDS: Bupivacaine Mpf 0.5% 30 ML VIAL (17:12)
--- NOTE | 2018-06-27 17:15 | PCM.OPRPT ---
Report of Operation Date of Procedure: 06/27/18 Pre-Operative Diagnosis: Cholelithiasis, acute cholecystitis, ventral hernia Post-Operative Diagnosis: Same Surgery/Procedure Performed:: Laparoscopic cholecystectomy with cholangiograms, ventral hernia repair internal auditor: Cynthia Sullivan Type of Anesthesia:: General/Supplemental Anesthesiologist: Mario Sen Special Medications: Cefotetan 2 g IV x1 Specimen's removed: Gallbladder and stones Estimated Blood Loss (mL): < 20 cc Fluids Replaced: 1500 cc Description of Procedure: Indications this is a 23 year-old female who developed abdominal pain/nausea/vomiting and on workup was found to have cholelithiasis, mild gallbladder wall thickening, positive Ken sign, elevated AST and ALT with normal bilirubin, with a normal common bile duct. Laparoscopic cholecystectomy was elected. Description procedure: The patient was placed on operating table in supine position. General Anesthesia was induced. A timeout was completed verifying correct patient, procedure, site, position, social, and special equipment prior to beginning procedure. An orogastric tube was placed. The abdomen was prepped and draped in usual sterile fashion. An incision was made in the natural skin line above the umbilicus at previous ventral hernia seen on CT. The fascia was elevated and incised. The peritoneum was elevated and incised. Entry into the peritoneum was confirmed visually and no bowel was noted in the vicinity of the incision. Rock trocar was placed. The abdomen was insufflated with carbon dioxide to a pressure of 12-15 mmHg. Patient tolerated insufflation well. The laparoscope was then inserted and abdomen inspected. No injuries from initial trocar placement were noted. Additional trochars were then inserted in the following locations 5 mm trocar in the epigastrium and 2 more 5 mm trochars along the right costal margin. The abdomen was inspected no abnormalities were found. The table is placed in reverse Trendelenburg position with the right side up. The adhesions between the gallbladder and omentum were lysed sharply. The dome of the gallbladder was grasped with atraumatic grasper passed through the lateral port and retracted over the dome of the liver. Infundibulum was then grasped with atraumatic grasper through the midclavicular port and retracted to the right lower quadrant. This maneuver exposed Calot's triangle. Minor catheter was used for cholangiograms. Able to see the cystic duct clearly going to the common bile duct however the rest of the biliary tree was low more difficult to see due to the patient's previous surgeries for scoliosis and her rods in her back. There are couple images question whether there is a filling defect in the distal bile duct. The peritoneum overlying the gallbladder infundibulum was then incised and cystic duct and artery identified and circumferentially dissected. The cystic duct and artery were then doubly clipped and divided close to the gallbladder. The gallbladder then dissected from its peritoneal attachments by electrocautery. Hemostasis was checked and the gallbladder and contained stones were removed using the endoscopic retrieval bag through the umbilical port. The gallbladder is passed off table as specimen. The gallbladder fossa was copiously irrigated with saline and hemostasis obtained. There is no evidence of bleeding from the gallbladder fossa or cystic artery leakage of bile from the cystic duct stump. Secondary trochars removed under direct vision. No bleeding was noted the trocar sites. The laparoscope was withdrawn and umbilical trocar removed. The abdomen was allowed to collapse. The fascia of the 12 mm trocar was closed with a [id number] 0 PDS suture x2 at the location of patient's previous ventral hernia. The skin was closed with sutures of 4-0 Monocryl and Steri-Strips. The orogastric tube was removed and the patient was extubated. The patient tolerated procedure well and was taken to the postanesthesia care unit in stable condition. - Complications None - Admit VTE Documentation VTE Present on Admission: Yes VTE Mechan Device Prophylaxis: SCD's
--- NOTE | 2018-06-27 17:20 | OP.PCM_ITS ---
Report of Operation Date of Procedure: 06/27/18 Pre-Operative Diagnosis: Cholelithiasis, acute cholecystitis, ventral hernia Post-Operative Diagnosis: Same Surgery/Procedure Performed:: Laparoscopic cholecystectomy with cholangiograms, ventral hernia repair children's entertainer: Cynthia Sullivan Type of Anesthesia:: General/Supplemental Anesthesiologist: Mario Sen Special Medications: Cefotetan 2 g IV x1 Specimen's removed: Gallbladder and stones Estimated Blood Loss (mL): < 20 cc Fluids Replaced: 1500 cc Description of Procedure: Indications this is a 23 year-old female who developed abdominal pain/nausea/vomiting and on workup was found to have cholelithiasis, mild gallbladder wall thickening, positive Ken sign, elevated AST and ALT with normal bilirubin, with a normal common bile duct. Laparoscopic cholecystectomy was elected. Description procedure: The patient was placed on operating table in supine position. General Anesthesia was induced. A timeout was completed verifying correct patient, procedure, site, position, social, and special equipment prior to beginning procedure. An orogastric tube was placed. The abdomen was prepped and draped in usual sterile fashion. An incision was made in the natural skin line above the umbilicus at previous ventral hernia seen on CT. The fascia was elevated and incised. The peritoneum was elevated and incised. Entry into the peritoneum was confirmed visually and no bowel was noted in the vicinity of the incision. Rock trocar was placed. The abdomen was insufflated with carbon dioxide to a pressure of 12-15 mmHg. Patient tolerated insufflation well. The laparoscope was then inserted and abdomen inspected. No injuries from initial trocar placement were noted. Additional trochars were then inserted in the following locations 5 mm trocar in the epigastrium and 2 more 5 mm trochars along the right costal margin. The abdomen was inspected no abnormalities were found. The table is placed in reverse Trendelenburg position with the right side up. The adhesions between the gallbladder and omentum were lysed sharply. The dome of the gallbladder was grasped with atraumatic grasper passed through the lateral port and retracted over the dome of the liver. Infundibulum was then grasped with atraumatic grasper through the midclavicular port and retracted to the right lower quadrant. This maneuver exposed Calot's triangle. Minor catheter was used for cholangiograms. Able to see the cystic duct clearly going to the common bile duct however the rest of the biliary tree was low more difficult to see due to the patient's previous surgeries for scoliosis and her rods in her back. There are couple images question whether there is a filling defect in the distal bile duct. The peritoneum overlying the gallbladder infundibulum was then incised and cystic duct and artery identified and circumferentially dissected. The cystic duct and artery were then doubly clipped and divided close to the gallbladder. The gallbladder then dissected from its peritoneal attachments by elec trocautery. Hemostasis was checked and the gallbladder and contained stones were removed using the endoscopic retrieval bag through the umbilical port. The gallbladder is passed off table as specimen. The gallbladder fossa was copiously irrigated with saline and hemostasis obtained. There is no evidence of bleeding from the gallbladder fossa or cystic artery leakage of bile from the cystic duct stump. Secondary trochars removed under direct vision. No bleeding was noted the trocar sites. The laparoscope was withdrawn and umbilical trocar removed. The abdomen was allowed to collapse. The fascia of the 12 mm trocar was closed with a [id number] 0 PDS suture x2 at the location of patient's previous ventral hernia. The skin was closed with sutures of 4-0 Monocryl and Steri-Strips. The orogastric tube was removed and the patient was extubated. The patient tolerated procedure well and was taken to the postanesthesia care unit in stable condition. - Complications None - Admit VTE Documentation VTE Present on Admission: Yes VTE Mechan Device Prophylaxis: SCD's
[2018-06-27] MEDS: Lactated Ringers 1,000 ML 125 ML IV (19:24)
[2018-06-27] MEDS: oxyCODONE 5 MG Tablet PO (20:31)
[2018-06-27] MEDS: Acetaminophen 325 MG Tablet 650 MG PO (20:32)
[2018-06-27] MEDS: DiphenhydrAMINE 25 MG Capsule PO (23:51)
[2018-06-28] MEDS: oxyCODONE 5 MG Tablet PO ×2 (00:42→04:12)
[2018-06-28 04:15] VITALS: BP 117/69; PULSE 62; RESP 16; TEMP 36.9; O2SAT 96
[2018-06-28 06:47] LABS: Absolute Lymphocyte Count 0.88 X10^3/ul (0.83-4.51); Absolute Neutrophil Count 7.1 X10^3/uL (2.0-7.7); Basophil# 0.01 X10^3/uL; Basophil% 0.1 % (0-1); Hematocrit 36.6 % (37-47); Hemoglobin 11.6 g/dl (12.0-15.0); Lymphocyte # 0.88 X10^3/ul (4.0); Lymphocyte % 10.4 % (19-41); Mean Corp Hgb Conc 31.7 g/gl (32-36); Mean Corpuscular Volume 81.9 fL (81-99); Mean Platelet Vol. 11.7 fl (6.2-12.0); Monocyte# 0.53 X10^3/uL; Monocyte% 6.2 % (0-10); Neutrophil # 7.07 X10^3/uL (2.7-7.7); Neutrophil % 83.2 % (47-70); Platelet Count 242 K/mm3 (150-450); RBC Distribution Width CV 14.9 % (11.6-14.6); RBC Distribution Width SD 44.3 fl (35.1-43.9); Red Blood Count 4.47 M/mm3 (4.2-5.4); White Blood Count 8.5 K/mm3 (4.4-11.0)
[2018-06-28] MEDS: Ondansetron 4 MG/2 ML Vial IV (06:58)
[2018-06-28 06:59] LABS: POSITIVE COUNT NO; POSITIVE DIFFERENTIAL NO; POSITIVE MORPHOLOGY NO
[2018-06-28 07:10] LABS: AST(SGOT) 381 U/L (15-37); Alanine Aminotransfer ALT/SGPT 286 U/L (13-56); Albumin, Serum 3.6 g/dL (3.2-5.0); Alkaline Phosphatase 194 U/L (45-117); Anion Gap 11 (5-15); BUN 3 mg/dL (7-18); Calcium,Total 8.6 mg/dL (8.5-10.1); Chloride 109 mmol/L (98-107); Creatinine, Serum 0.74 mg/dL (0.55-1.02); EST Glomerular Filtration Rate 101 mL/min (>60); Est Glom Filt Rate - Afr Amer 123 mL/min (>60); Estimated Creatinine Clearance 108.79 ml/min; Globulin 3.5 g/dL (2.2-4.2); Glucose 107 mg/dL (74-106); Potassium 3.9 mmol/L (3.5-5.1); Protein, Total 7.1 g/dL (6.4-8.2); Sodium Level 142 mmol/L (136-145)
[2018-06-28] MEDS: Ketorolac 30 MG/ML Syringe IV (07:20)
--- NOTE | 2018-06-28 08:11 | PCM.PN.SRG ---
Patient Problems: Active and Suspected Problems (Last Reviewed 06/27/18 @ 11:21 by Caity Sow PA-C) Right upper quadrant abdominal pain (Acute) Acute cholecystitis (Acute) Subjective: Patient tolerated clears, ordered regular for breakfast, has not really walked much in the halls per the patient, denies any flatus, complains of diffuse abdominal pain mainly at incisions - Physical Exam General: Alert, Oriented x3, Cooperative, No apparent distress Lungs: Normal air movement Cardiovascular: Regular rate Abdomen: Soft, Distended - Mild, Tender - Tender diffusely but mainly at incisions, incisions dressed clean dry and intact with OpSite Extremities: No clubbing, No cyanosis, No edema Neurological: Cranial nerves II-XII grossly intact Vital Signs Temp Pulse Resp BP Pulse Ox 98.5 F 62 16 117/69 96 06/28/18 04:15 06/28/18 04:15 06/28/18 04:15 06/28/18 04:15 06/28/18 04:15 Oxygen Delivery Method Room Air Weight: 225 lb 10.995 oz Body Mass Index (BMI) 36.2 Intake and Output for Last 24 Hours 06/26/18 06/27/18 06/28/18 23:59 23:59 23:59 Intake Total 4043 / 4043 800 / 800 Output Total 800 / 800 900 / 900 Balance 3243 / 3243 -100 / -100 Laboratory Tests Past 24 Hrs 06/28/18 06/28/18 05:40 05:40 WBC 8.5 RBC 4.47 Hgb 11.6 L Hct 36.6 L MCV 81.9 MCH 26.0 L MCHC 31.7 L RDW 14.9 H RDW Differential 44.3 H Plt Count 242 MPV 11.7 Immature Gran % (Auto) 0.100 Neut % (Auto) 83.2 H Lymph % (Auto) 10.4 L [place] % (Auto) 6.2 Eos % (Auto) 0.0 Baso % (Auto) 0.1 Absolute Neuts (auto) 7.1 Absolute Lymphs (auto) 0.88 Total Counted Not Reportable Sodium 142 Potassium 3.9 Chloride 109 H Carbon Dioxide 22.0 Anion Gap 11 BUN 3 L Creatinine 0.74 Estim Creat Clear Calc 108.79 Est GFR (MDRD) Af Amer 123 Est GFR (MDRD) Non-Af 101 BUN/Creatinine Ratio 4.0 L Glucose 107 H Calcium 8.6 Total Bilirubin 0.90 AST 381 H ALT 286 H Alkaline Phosphatase 194 H Total Protein 7.1 Albumin 3.6 Globulin 3.5 Albumin/Globulin Ratio 1.0 Medical Necessity - Tobacco Use Smoking Status: Never smoker Assessment/Plan All Active Problems (Last Reviewed 06/27/18 @ 11:21 by Caity Sow PA-C) Right upper quadrant abdominal pain (Acute) Acute cholecystitis (Acute) Drug induced fever (Acute) Pancytopenia with fever (Acute) Pancytopenia (Acute) Iron deficiency anemia (Acute) Pseudomonas aeruginosa infection (Acute) Open wound of right chest wall with complication (Acute) Cellulitis of right breast (Acute) Cellulitis of chest wall (Acute) Abscess of chest wall (Acute) Cellulitis and abscess of other specified site (Acute) MRSA (methicillin resistant Staphylococcus aureus) infection (Acute) Abscess of right breast (Ruled-out) Acute pyelonephritis (Resolved) 23-year-old female postop day 1 laparoscopic cholecystectomy with cholangiograms, elevated liver function 1. Tolerating clears advance to regular. 2. Liver functions (AST and ALT with a normal bilirubin) are slightly increased may be due to cautery or cholangiogram will recheck in about a week at follow-up 3. Encourage ambulation in the halls 4. Continue pain control with OxyIR and ibuprofen taken with food 5. Patient is able to tolerate a regular diet pain controlled ambulating and vital signs remained stable, plan to discharge today. Laura Cleaning M.D. Pager: [phone] [facility] [address] [place] [address], [facility], [address] [place] [address] Office: [phone]
--- NOTE | 2018-06-28 08:15 | PN.SURG_ITS ---
Patient Problems: Active and Suspected Problems (Last Reviewed 06/27/18 @ 11:21 by Caity Sow PA-C) Right upper quadrant abdominal pain (Acute) Acute cholecystitis (Acute) Subjective: Patient tolerated clears, ordered regular for breakfast, has not really walked much in the halls per the patient, denies any flatus, complains of diffuse abdominal pain mainly at incisions - Physical Exam General: Alert, Oriented x3, Cooperative, No apparent distress Lungs: Normal air movement Cardiovascular: Regular rate Abdomen: Soft, Distended - Mild, Tender - Tender diffusely but mainly at incisions, incisions dressed clean dry and intact with OpSite Extremities: No clubbing, No cyanosis, No edema Neurological: Cranial nerves II-XII grossly intact Vital Signs Temp Pulse Resp BP Pulse Ox 98.5 F 62 16 117/69 96 06/28/18 04:15 06/28/18 04:15 06/28/18 04:15 06/28/18 04:15 06/28/18 04:15 Oxygen Delivery Method Room Air Weight: 225 lb 10.995 oz Body Mass Index (BMI) 36.2 Intake and Output for Last 24 Hours 06/26/18 06/27/18 06/28/18 23:59 23:59 23:59 Intake Total 4043 / 4043 800 / 800 Output Total 800 / 800 900 / 900 Balance 3243 / 3243 -100 / -100 Laboratory Tests Past 24 Hrs 06/28/18 06/28/18 05:40 05:40 WBC 8.5 RBC 4.47 Hgb 11.6 L Hct 36.6 L MCV 81.9 MCH 26.0 L MCHC 31.7 L RDW 14.9 H RDW Differential 44.3 H Plt Count 242 MPV 11.7 Immature Gran % (Auto) 0.100 Neut % (Auto) 83.2 H Lymph % (Auto) 10.4 L [place] % (Auto) 6.2 Eos % (Auto) 0.0 Baso % (Auto) 0.1 Absolute Neuts (auto) 7.1 Absolute Lymphs (auto) 0.88 Total Counted Not Reportable Sodium 142 Potassium 3.9 Chloride 109 H Carbon Dioxide 22.0 Anion Gap 11 BUN 3 L Creatinine 0.74 Estim Creat Clear Calc 108.79 Est GFR (MDRD) Af Amer 123 Est GFR (MDRD) Non-Af 101 BUN/Creatinine Ratio 4.0 L Glucose 107 H Calcium 8.6 Total Bilirubin 0.90 AST 381 H ALT 286 H Alkaline Phosphatase 194 H Total Protein 7.1 Albumin 3.6 Globulin 3.5 Albumin/Globulin Ratio 1.0 Medical Necessity - Tobacco Use Smoking Status: Never smoker Assessment/Plan All Active Problems (Last Reviewed 06/27/18 @ 11:21 by Caity Sow PA-C) Right upper quadrant abdominal pain (Acute) Acute cholecystitis (Acute) Drug induced fever (Acute) Pancytopenia with fever (Acute) Pancytopenia (Acute) Iron deficiency anemia (Acute) Pseudomonas aeruginosa infection (Acute) Open wound of right chest wall with complication (Acute) Cellulitis of right breast (Acute) Cellulitis of chest wall (Acute) Abscess of chest wall (Acute) Cellulitis and abscess of other specified site (Acute) MRSA (methicillin resistant Staphylococcus aureus) infection (Acute) Abscess of right breast (Ruled-out) Acute pyelonephritis (Resolved) 23-year-old female postop day 1 laparoscopic cholecystectomy with cholangiograms, elevated liver function 1. Tolerating clears advance to regular. 2. Liver functions (AST and ALT with a normal bilirubin) are slightly increased may be due to cautery or cholangiogram will recheck in about a week at follow-up 3. Encourage ambulation in the halls 4. Continue pain control with OxyIR and ibuprofen taken with food 5. Patient is able to tolerate a regular diet pain controlled ambulating and vital signs remained stable, plan to discharge today. Laura Cleaning M.D. Pager: [phone] [facility] [address] [place] [address], [facility], [address] [place] [address] Office: [phone]
--- NOTE | 2018-06-28 08:18 | PCM.DC.GB ---
Discharge Diet: Light diet - advance as tolerated Discharge Activity: May not drive while taking narcotic pain medications. May shower in (days): 1 Lifting Restrictions: no lifting > 20 lb for 4 weeks Call your doctor if your incision/area has: Continuous Slow Oozing, Sudden Increased Bleeding, Increased Pain/ Swelling, Increased Redness, Foul Smelling Discharge, Swelling at the incision site Call your doctor if you observe: Fever of 101 or Higher Remove Dressing in (days):: 1 Additional Instructions: Will get repeat Liver function test about 7-10 days after surgery. Order is placed, just go to the lab to have them drawn at least 1 week after surgery, 07/05 or after Allergies/Adverse Reactions: Allergies No Known Allergies Allergy (Verified 05/10/18 16:31) Medications to take at Discharge diazepam 5 mg tablet 5 mg PO 4X/DAY PRN #30 tab 05/09/18 buPROPion XL [Wellbutrin Xl] 300 mg PO DAILY 05/10/18 Escitalopram Oxalate [Lexapro] 5 mg PO DAILY 05/11/18 DiphenhydrAMINE [Benadryl] 25 mg PO TID PRN PRN #30 cap 05/13/18 Ferrous Sulfate [Iron] 325 mg PO BID #60 tab 05/13/18 Gauze Bandage [Bandage Roll] 1 ea TP .QDAILY #30 bandage 05/13/18 Oxycodone HCl/Acetaminophen [Percocet 5-325] 1 - 2 tab PO 4X/DAY PRN PRN 7 Days #40 tab 05/13/18 Silver/Hydrocolloid Dressing [Aquacel-Ag W-Hydrofiber Dress] 1 ea TP .QDAILY 30 Days #30 bandage 05/13/18 Oxycodone HCl/Acetaminophen [Percocet 5/325] 1 - 2 tablet PO Q6H PRN PRN 5 Days #25 tablet 06/28/18 The following prescriptions were given: Oxycodone HCl/Acetaminophen [Percocet 5/325] 1 - 2 tablet PO Q6H PRN PRN 5 Days #25 tablet PRN Reason: Pain Primary Care Physician: Dario Poe DO [Primary Care Provider] - Test Results: Test results from this visit will be discussed in further detail at your follow-up appointment, if applicable. Please Follow Up With: Laura Cleaning MD When: call for appt in 7-10 days Proposed Discharge Date: 06/28/18
--- NOTE | 2018-06-28 08:21 | DCINST_ITS ---
Discharge Diet: Light diet - advance as tolerated Discharge Activity: May not drive while taking narcotic pain medications. May shower in (days): 1 Lifting Restrictions: no lifting > 20 lb for 4 weeks Call your doctor if your incision/area has: Continuous Slow Oozing, Sudden Increased Bleeding, Increased Pain/ Swelling, Increased Redness, Foul Smelling Discharge, Swelling at the incision site Call your doctor if you observe: Fever of 101 or Higher Remove Dressing in (days):: 1 Additional Instructions: Will get repeat Liver function test about 7-10 days after surgery. Order is pl aced, just go to the lab to have them drawn at least 1 week after surgery, 07/05 or after Allergies/Adverse Reactions: Allergies No Known Allergies Allergy (Verified 05/10/18 16:31) Medications to take at Discharge diazepam 5 mg tablet 5 mg PO 4X/DAY PRN #30 tab 05/09/18 buPROPion XL [Wellbutrin Xl] 300 mg PO DAILY 05/10/18 Escitalopram Oxalate [Lexapro] 5 mg PO DAILY 05/11/18 DiphenhydrAMINE [Benadryl] 25 mg PO TID PRN PRN #30 cap 05/13/18 Ferrous Sulfate [Iron] 325 mg PO BID #60 tab 05/13/18 Gauze Bandage [Bandage Roll] 1 ea TP .QDAILY #30 bandage 05/13/18 Oxycodone HCl/Acetaminophen [Percocet 5-325] 1 - 2 tab PO 4X/DAY PRN PRN 7 Days #40 tab 05/13/18 Silver/Hydrocolloid Dressing [Aquacel-Ag W-Hydrofiber Dress] 1 ea TP .QDAILY 30 Days #30 bandage 05/13/18 Oxycodone HCl/Acetaminophen [Percocet 5/325] 1 - 2 tablet PO Q6H PRN PRN 5 Days #25 tablet 06/28/18 The following prescriptions were given: Oxycodone HCl/Acetaminophen [Percocet 5/325] 1 - 2 tablet PO Q6H PRN PRN 5 Days #25 tablet PRN Reason: Pain Primary Care Physician: Dario Poe DO [Primary Care Provider] - Test Results: Test results from this visit will be discussed in further detail at your follow- up appointment, if applicable. Please Follow Up With: Laura Cleaning MD When: call for appt in 7-10 days Proposed Discharge Date: 06/28/18
[2018-06-28 08:39] VITALS: O2SAT 95
--- NOTE | 2018-06-28 08:43 | NURSING ---
wound photo: right lateral chest
[2018-06-28 08:44] VITALS: BP 127/68; PULSE 72; RESP 16; TEMP 36.9; O2SAT 98
[2018-06-28] MEDS: Docusate Sodium 100 MG Capsule PO (12:12)
[2018-06-28] MEDS: Pantoprazole Sodium 40 MG Tablet PO (12:12)
[2018-06-28 12:47] VITALS: BP 138/87; PULSE 82; RESP 16; TEMP 36.7; O2SAT 93
== END 2018-06-28 13:07 | disposition home or self-care (01) ==
LOC: ED 10:21 → MS3 11:02
PROVIDERS: Emergency Medicine; Physician Assistant; Admitting Provider Surgery; Emergency Provider Emergency Medicine; Family Provider Student in an Organized Health Care Education/Training Program; PCP Student in an Organized Health Care Education/Training Program; Visit Provider Surgery
PROC: (CPT 47610; principal; 2018-06-27 11:40)
DX: K80.12 Calculus of gallbladder with acute and chronic cholecystitis without obstruction (principal); K43.9 Ventral hernia without obstruction or gangrene; N61.1 Abscess of the breast and nipple; Z86.14 Personal history of Methicillin resistant Staphylococcus aureus infection; F41.9 Anxiety disorder, unspecified; F32.9 Major depressive disorder, single episode, unspecified; Z79.899 Other long term (current) drug therapy; E78.00 Pure hypercholesterolemia, unspecified; M41.9 Scoliosis, unspecified
CPT/HCPCS: 00790; 47563; 49652; 36415; 74022; 74300; 76000; 76705; 80048; 80053; 80076; 81001; 83690; 84703; 85025; 88304; 93005; 96361; 96365; 96375; 96376; 99218; 99283; J7030; J7120; 90686; A4216; G0378; J2405

== ENCOUNTER 2018-06-29 09:18 | Observation (INO) | payer MEDICAID, SELFPAY ==
[2018-06-27 12:35] VITALS: BMI 36.2
[2018-06-29] VITALS (15 sets, daily range): BP systolic 116–150; BP diastolic 74–94; PULSE 56–88; RESP 14–22; TEMP 36.2–37; O2SAT 96–100; BMI 36.3; BMI 35.4
--- NOTE | 2018-06-29 09:41 | CT_ITS ---
STUDY: CT ABDOMEN AND PELVIS WITH CONTRAST REASON FOR EXAM: Female, 23 years old. Abdominal pain. Recent cholecystectomy. Vomiting. RADIATION DOSAGE (If Supplied By Facility): CTDIvol = ( 15.97 ) mGy, DLP = ( 1564.00 ) mGycm TECHNIQUE: Transaxial images were obtained from the dome of the diaphragm to the symphysis pubis without oral contrast. 100mL ml of Isovue 300 contrast was administered. Sagittal and coronal images were reconstructed. Individualized dose optimization techniques were used for this CT. COMPARISON: Comparison is made with prior study dated July 14, 2017. FINDINGS: Small left pleural effusion with mild left basilar atelectasis. The visualized portions of the heart are within normal limits. There is decreased attenuation of the liver consistent with steatosis. The patient is status post cholecystectomy on June 27, 2018. Small fluid collection is seen in the gallbladder fossa. This most likely represents postoperative changes. Is also evidence of a tiny amount of free air in the anterior aspect of the liver and in the left upper quadrant in keeping with the recent laparoscopic surgery. Normal spleen. Normal pancreas. Normal bilateral adrenal glands. Normal right kidney. Normal left kidney. Normal visualized stomach. Normal small intestine. Moderate amount of fecal material is seen in the colon. There are surgical clips in the region of the appendix consistent with a prior appendectomy. Normal abdominal aorta. Normal inferior vena cava. Normal retroperitoneum. Normal urinary bladder. Small amount of free fluid is seen in the pelvis. Small amount of free fluid also seen in the right pelvis. Postsurgical changes are seen in the region of the umbilicus in keeping with the recent laparoscopic cholecystectomy. A small amount of air is also seen in the right anterior abdominal wall in keeping with the recent cholecystectomy. Levoscoliosis. There is evidence of prior fusion in the lower thoracic and upper lumbar spine. CT/Abdomen/Pelvis W IV Cont ONLY IMPRESSION: Small left pleural effusion. Status post laparoscopic cholecystectomy with a small amount of fluid in the gallbladder fossa most likely postoperative in nature. Changes seen in the region of the umbilicus and right anterior abdominal wall in keeping with the recent surgery. Small amount of free fluid in the pelvis and right hemipelvis. Electronically Signed: Gideon Thorne MD at 12:29 EST Tel [phone], Service support ,
[2018-06-29] MEDS: Morphine 4 MG/ML Syringe IV ×2 (10:26→12:46)
[2018-06-29] MEDS: 0.9% Normal Saline 1,000 ML 1000 ML IV (10:26)
[2018-06-29] MEDS: Ondansetron 4 MG/2 ML Vial IV ×2 (10:26→12:47)
[2018-06-29 10:31] LABS: Absolute Lymphocyte Count 1.01 X10^3/ul (0.83-4.51); Absolute Neutrophil Count 5.3 X10^3/uL (2.0-7.7); Basophil# 0.01 X10^3/uL; Basophil% 0.1 % (0-1); Eosinophil# 0.02 X10^3/uL; Eosinophils% 0.3 % (0-5); Hematocrit 38.6 % (37-47); Hemoglobin 11.9 g/dl (12.0-15.0); Lymphocyte # 1.01 X10^3/ul (4.0); Lymphocyte % 14.7 % (19-41); Mean Corp Hgb Conc 30.8 g/gl (32-36); Mean Corpuscular Hgb 25.6 pg (27.0-32.0); Mean Platelet Vol. 10.7 fl (6.2-12.0); Monocyte# 0.54 X10^3/uL; Monocyte% 7.9 % (0-10); Neutrophil # 5.27 X10^3/uL (2.7-7.7); Neutrophil % 76.7 % (47-70); Platelet Count 229 K/mm3 (150-450); RBC Distribution Width CV 15.3 % (11.6-14.6); RBC Distribution Width SD 46.6 fl (35.1-43.9); Red Blood Count 4.65 M/mm3 (4.2-5.4); White Blood Count 6.9 K/mm3 (4.4-11.0)
[2018-06-29 10:40] LABS: POSITIVE COUNT NO; POSITIVE DIFFERENTIAL NO; POSITIVE MORPHOLOGY NO
[2018-06-29 10:45] LABS: AST(SGOT) 338 U/L (15-37); Alanine Aminotransfer ALT/SGPT 446 U/L (13-56); Albumin, Serum 3.7 g/dL (3.2-5.0); Alkaline Phosphatase 289 U/L (45-117); Anion Gap 8 (5-15); BUN 2 mg/dL (7-18); Bilirubin, Direct 2.05 mg/dL (0.00-0.30); Chloride 102 mmol/L (98-107); Creatinine, Serum 0.67 mg/dL (0.55-1.02); EST Glomerular Filtration Rate 113 mL/min (>60); Est Glom Filt Rate - Afr Amer 137 mL/min (>60); Estimated Creatinine Clearance 120.16 ml/min; Glucose 101 mg/dL (74-106); Lipase 81 U/L (73-393); Potassium 3.5 mmol/L (3.5-5.1); Protein, Total 7.7 g/dL (6.4-8.2); Sodium Level 139 mmol/L (136-145)
--- NOTE | 2018-06-29 11:26 | NURSING ---
LEFT MESSAGE FOR DR ROSENBAUM.
[2018-06-29] MEDS: 0.9% Normal Saline 1,000 ML 999 ML IV (12:48)
--- NOTE | 2018-06-29 12:56 | HP.PCM_ITS ---
Problem List (1) Abdominal pain Status: Acute (2) Elevated liver enzymes Status: Acute (3) Choledocholithiasis Status: Acute History of Present Illness Date of Admission: 06/29/18 Chief Complaint: Abdominal pain, elevated liver enzymes. S/p cholecystectomy The patient is a 23 year old F who presents post-op day # 2 from a laparoscopic cholecystectomy. Patient notes discomfort prior to discharge, however the pain worsened over night and included nausea and vomiting. Patient's previous history per my last admission note on 06/27: The patient is a 23 year old F who presents with a 2 day history of epigastric pain, nausea, vomiting. Patient states she is unsure what brought this pain on. Patient does not associate this pain with food however she has not paid too much attention to her diet. Patient stated she has had a dull pain/discomfort which has woken her up from sleep at night for the last several months. She did not relate this discomfort to anything specific. She notes stress within her life with her 3 children. She notes constipation more lately. She denies change in color of stool. 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 She has had previous surgery per Dr. Garibay in February twice. 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 She is currently being seen by the wound center weekly for debridement and dressing changes. She had to have a PICC line placed for IV antibiotics. This was discontinued at the beginning of April. She noted finding out she had an allergy to Vanco throughout all of this. Patient notes abdominal surgeries include tubal ligation and appy. She has delivered 3 children vaginally without any complications. She has also had a anne-marie placed in her back. Patient denies previous history of gallbladder disease. She denies smoking and alcohol use. She denies previous myocardial infarction, stroke and blood clots. She denies previously being seen by cardiology. CT scan was obtained and demonstrated Small left pleural effusion. Status post laparoscopic cholecystectomy with a small amount of fluid in the gallbladder fossa most likely postoperative in nature. Changes seen in the region of the umbilicus and right anterior abdominal wall in keeping with the recent surgery. Small amount of free fluid in the pelvis and right hemipelvis. 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) BMI 38.0-38.9,adult (Chronic) Depression (Chronic) Medical History: Medical History (Last Reviewed 06/29/18 @ 13:41 by Caity Sow PA-C) Anxiety and depression F41.9, F32.9 Back problem M53.9 Gallstones K80.20 Kidney stones N20.0 Allergies No Known Allergies Allergy (Verified 06/29/18 09:22) Home Medications: Ambulatory Orders Medication Instructions Recorded diazepam 5 mg tablet 5 mg PO 4X/DAY PRN #30 tab 05/09/18 buPROPion XL [Wellbutrin Xl] 300 mg PO DAILY 05/10/18 Escitalopram Oxalate [Lexapro] 5 mg PO DAILY 05/11/18 DiphenhydrAMINE [Benadryl] 25 mg PO TID PRN PRN #30 cap 05/13/18 Ferrous Sulfate [Iron] 325 mg PO BID #60 tab 05/13/18 Gauze Bandage [Bandage Roll] 1 ea TP .QDAILY #30 bandage 05/13/18 Oxycodone HCl/Acetaminophen 1 - 2 tab PO 4X/DAY PRN PRN 7 Days 05/13/18 [Percocet 5-325] #40 tab Silver/Hydrocolloid Dressing 1 ea TP .QDAILY 30 Days #30 bandage 05/13/18 [Aquacel-Ag W-Hydrofiber Dress] Oxycodone HCl/Acetaminophen 1 - 2 tablet PO Q6H PRN PRN 5 Days 06/28/18 [Percocet 5/325] #25 tablet Surgical History: Surgical History (Last Reviewed 06/29/18 @ 13:41 by Caity Sow PA-C) History of appendectomy Z90.49 History of back surgery Z98.890 2007 History of tubal ligation Z98.51 Surgical History: appendectomy, - - Tubal ligation, back surgery for scoliosis Psychiatric History: No pertinent psych hx [employer] History: No pertinent [employer] history Smoking Status: Unknown if ever smoked - *Family History Maternal Family History: Family History (Last Reviewed 06/29/18 @ 13:41 by Caity Sow PA-C) Mother Diabetes Hypertension Father Hypertension Grandmother Diabetes History Items: No pertinent history Paternal Family History: Family History (Last Reviewed 06/29/18 @ 13:41 by Caity Sow PA-C) Mother Diabetes Hypertension Father Hypertension Grandmother Diabetes History Items: No pertinent history Review of Systems Constitutional: Reports: Anorexia HEENT: Denies: Head Aches, Sinus Congestion, Sinus Drainage Cardiovascular: Denies: Chest Pain, Palpitations Respiratory: Denies: Cough, Shortness of breath at rest, Sputum production Gastrointestinal: Reports: Abdominal Pain, Nausea, Vomiting Genitourinary: Denies: Dysuria Musculoskeletal: Denies: Joint Pain, Joint Tenderness Skin: Denies: Rash, Wounds Neurological: Denies: Numbness, Tingling, Focal weakness Psychiatric: Denies: Anxiety, Depression, Homicidal Ideations, Suicidal Ideations Hematologic/ Lymphatic: Denies: Easy Bruising, Easy Bleeding VTE Information - Inpt Only VTE Present on Admission: Yes Patient Problems: Active and Suspected Problems (Last Reviewed 06/27/18 @ 11:21 by Caity Sow PA-C) Abdominal pain (Acute) Elevated liver enzymes (Acute) Choledocholithiasis (Acute) - Physical Exam General: Alert, Oriented x3, Cooperative HEENT: Atraumatic, PERRLA, EOMI, Normocephalic Neck: Supple, No JVD, Negative Carotid Bruits Lungs: Clear to auscultation, Normal air movement Cardiovascular: Regular rate, No murmurs Abdomen: Hypoactive Bowel Sounds, Obese, Tender - RUQ/epigastric Extremities: No edema, Capillary Refill Less than 3 Seconds Skin: No rashes, No breakdown Musculoskeletal: No Tenderness to Palpation of Joints or Extremities Neurological: Neuro grossly intact Psych/Mental Status: Normal Affect, Appropriate Vital Signs Temp Pulse Resp BP Pulse Ox 97.6 F L 56 L 16 124/80 H 99 06/29/18 09:19 06/29/18 10:29 06/29/18 10:29 06/29/18 10:29 06/29/18 10:29 Oxygen Delivery Method Room Air Weight: 225 lb Body Mass Index (BMI) 36.3 Laboratory Tests Past 24 Hrs 06/29/18 06/29/18 09:41 09:41 WBC 6.9 RBC 4.65 Hgb 11.9 L Hct 38.6 MCV 83.0 MCH 25.6 L MCHC 30.8 L RDW 15.3 H RDW Differential 46.6 H Plt Count 229 MPV 10.7 Immature Gran % (Auto) 0.300 Neut % (Auto) 76.7 H Lymph % (Auto) 14.7 L [place] % (Auto) 7.9 Eos % (Auto) 0.3 Baso % (Auto) 0.1 Absolute Neuts (auto) 5.3 Absolute Lymphs (auto) 1.01 Total Counted Not Reportable Sodium 139 Potassium 3.5 Chloride 102 Carbon Dioxide 29.0 Anion Gap 8 BUN 2 L Creatinine 0.67 Estim Creat Clear Calc 120.16 Est GFR (MDRD) Af Amer 137 Est GFR (MDRD) Non-Af 113 BUN/Creatinine Ratio 3.0 L Glucose 101 Calcium 9.0 Total Bilirubin 2.60 H Direct Bilirubin 2.05 H AST 338 H ALT 446 H Alkaline Phosphatase 289 H Total Protein 7.7 Albumin 3.7 Globulin 4.0 Lipase 81 Assessment/Plan All Active Problems (Last Reviewed 06/27/18 @ 11:21 by Caity Sow PA-C) Right upper quadrant abdominal pain (Acute) Acute cholecystitis (Acute) Abdominal pain (Acute) Elevated liver enzymes (Acute) Choledocholithiasis (Acute) Drug induced fever (Acute) Pancytopenia with fever (Acute) Pancytopenia (Acute) Iron deficiency anemia (Acute) Pseudomonas aeruginosa infection (Acute) Open wound of right chest wall with complication (Acute) Cellulitis of right breast (Acute) Cellulitis of chest wall (Acute) Abscess of chest wall (Acute) Cellulitis and abscess of other specified site (Acute) MRSA (methicillin resistant Staphylococcus aureus) infection (Acute) Abscess of right breast (Ruled-out) Acute pyelonephritis (Resolved) I am seeing this patient in conjunction with Dr. Negrete Impression: Choledocholithiasis. Elevated liver enzymes. Plan: Patient was discussed with Dr. Negrete. Dr. Negrete will plan to perform an Endoscopic retrograde cholangiopancreatography under general anesthesia. Procedure details, risks and benefits have been explained to the patient. Patient has had the opportunity to ask and have questions answered. Patient will remain NPO. Procedure will be performed today. Patient will be adm itted for observation and possibly discharged tomorrow. Patient's fiance would like to be contacted after the procedure is completed. His cell number is [phone]. Thank you for allowing me to participate in this patient's care. Code Visit Office Visits / Consults: [id number] IP Consult L2
--- NOTE | 2018-06-29 12:57 | NURSING ---
SURGERY [facility] CHOLEDOCLITHIASIS
--- NOTE | 2018-06-29 13:43 | ED.DCSUM_ITS ---
- ER Visit Summary Date of Service: 06/29/18 Chief Complaint: Abdominal pain History of Present Illness: The patient is a 23 F discharged from the hospital yesterday after cholecystectomy presenting with recurrent right upper quadrant abdominal pain, nausea, and vomiting. No fever. Physical Examination: She has tenderness in the right upper quadrant but no rebound or guarding. She appears uncomfortable. Mucous members are dry. Test Results: White blood cell count is normal but her liver enzymes are markedly elevated raising the concern for a retained gallstone. Emergency Department Course and Treatment: An IV Zosyn and fluids as well as morphine and Zofran. I discussed the case with her surgeon. Is then evaluated by surgery in the emergency department and arrangements were made to take her back to the operating room for an ERCP at 230 today. She will then be admitted to the surgical service. Treatment Plan: Admit to surgery Disposition: Admit to surgery Impression: Initial encounter choledocholithiasis after cholecystectomy This note was generated with Chart[employer] dictation software. It may contain incorrect words, spelling, and punctuation that were not noted in review of the chart prior to signing ED Disposition - Plan for ED Patient: Chief Complaint: Nausea/Vomiting Referrals: Dario Poe DO [Primary Care Provider] -
--- NOTE | 2018-06-29 13:56 | ED.RN ---
this rn talks with martin mejia from surgery. aware pt does not have consent signed.
--- NOTE | 2018-06-29 15:50 | RAD_ITS ---
STUDY: ERCP. REASON FOR EXAM: Female, 23 years old. The patient is status post laparoscopic cholecystectomy. FLUOROSCOPY TIME (if supplied): (92.8 seconds) minutes/seconds TECHNIQUE: An ERCP was performed by the surgeon. There is visualization of the common bile duct. COMPARISON: None. FINDINGS: The central intrahepatic biliary ducts are unremarkable. Questionable tiny filling defect in the distal portion of the common bile duct. A small amount of contrast is seen within the second portion of the duodenum. RAD/ERCP Biliary Only IMPRESSION: Questionable tiny filling defect in the distal portion of the common bile duct although contrast is seen within the duodenum. Electronically Signed: Gideon Thorne MD at 7:58 EST Tel [phone], Service support ,
--- NOTE | 2018-06-29 16:08 | DCINST_ITS ---
Discharge Diet: Light diet - advance as tolerated Discharge Activity: Return to Normal Activity May shower in (days): 1 - with the bandage in place. Additional Activity Instructions:: Pain medication may cause nausea. You should typically eat light foods as you take your pain medications. Pain medication may also cause constipation. If this is a problem for you, please discuss with your doctor. Call your doctor if your incision/area has: Continuous Slow Oozing, Sudden Increased Bleeding, Increased Pain/ Swelling, Increased Redness, Foul Smelling Discharge, Fever of 101 or Higher Call your doctor if you observe: Fever of 101 or Higher Suture Line Care: Avoid Pulling/Pushing, Avoid Pinching/Bending Additional Dressing/Incision Instructions:: Leave operative bandaids on for 2 da ys. When you remove dressing, leave Steri-Strips on until your follow-up appointment, or until the Steri-Strips fall off on their own. Allergies/Adverse Reactions: Allergies No Known Allergies Allergy (Verified 06/29/18 09:22) Medications to take at Discharge diazepam 5 mg tablet 5 mg PO 4X/DAY PRN #30 tab 05/09/18 buPROPion XL [Wellbutrin Xl] 300 mg PO DAILY 05/10/18 Escitalopram Oxalate [Lexapro] 5 mg PO DAILY 05/11/18 DiphenhydrAMINE [Benadryl] 25 mg PO TID PRN PRN #30 cap 05/13/18 Ferrous Sulfate [Iron] 325 mg PO BID #60 tab 05/13/18 Gauze Bandage [Bandage Roll] 1 ea TP .QDAILY #30 bandage 05/13/18 Oxycodone HCl/Acetaminophen [Percocet 5-325] 1 - 2 tab PO 4X/DAY PRN PRN 7 Days #40 tab 05/13/18 Silver/Hydrocolloid Dressing [Aquacel-Ag W-Hydrofiber Dress] 1 ea TP .QDAILY 30 Days #30 bandage 05/13/18 Primary Care Physician: Dario Poe DO [Primary Care Provider] - Test Results: Test results from this visit will be discussed in further detail at your follow- up appointment, if applicable. Please Follow Up With: Laura Cleaning MD When: as scheduled
--- NOTE | 2018-06-29 16:14 | OP.ENDO_ITS ---
Patient Name: Qing Solares Procedure Date: 06/29/2018 3:25 PM Date of : 1995 Age: 23 Procedure: ERCP Indications: Suspected bile duct stone(s), Elevated liver enzymes Providers: Kevin Negrete MD Medicines: General Anesthesia Patient Profile: This is a 23 year old female. Refer to note in patient chart for documentation of history and physical. Complications: No immediate complications. Estimated blood loss: Minimal. Procedure: Pre-Anesthesia Assessment: - Prior to the procedure, a History and Physical was performed, and patient medications and allergies were reviewed. The patient's tolerance of previous anesthesia was also reviewed. The risks and benefits of the procedure and the sedation options and risks were discussed with the patient. All questions were answered, and informed consent was obtained. Prior Anticoagulants: The patient has taken no previous anticoagulant or antiplatelet agents. After reviewing the risks and benefits, the patient was deemed in satisfactory condition to undergo the procedure. After obtaining informed consent, the scope was passed under direct vision. Throughout the procedure, the patient's blood pressure, pulse, and oxygen saturations were monitored continuously. The [id number] s/n [id number] endoscope was introduced through the mouth, and advanced to the duodenum and used to inject contrast into the bile duct. The ERCP was accomplished without difficulty. The patient tolerated the procedure well. Scope In: 3:53:43 PM Scope Out: 4:00:56 PM Total Procedure Duration Time 0 hours 7 minutes 13 seconds Findings: A 0.035 inch x 260 cm straight Dreamwire was passed into the biliary tree. The short-nosed traction sphincterotome was passed over the guidewire and the bile duct was then deeply cannulated. Contrast was injected. I personally interpreted the bile duct images. There was brisk flow of contrast through the ducts. Image quality was adequate. Contrast extended to the hepatic ducts. The common bile duct was completely obstructed by what appeared to be a stone. Biliary sphincterotomy was made with a monofilament traction (standard) sphincterotome using ERBE electrocautery. There was no post-sphincterotomy bleeding. The biliary tree was swept with a 12 mm balloon starting at the bifurcation. One stone was removed. No stones remained. The endoscope was withdrawn from the patient. Impression: - Choledocholithiasis with an obstruction was found. Complete removal was accomplished by biliary sphincterotomy and balloon extraction. - A biliary sphincterotomy was performed. - The biliary tree was swept. Recommendation: - Advance diet as tolerated. - Continue present medications. - Observe patient's clinical course. Procedure Code(s): --- Professional --- 52802, Endoscopic retrograde cholangiopancreatography (ERCP); with removal of calculi/debris from biliary/pancreatic duct(s) Diagnosis Code(s): --- Professional --- K80.51, Calculus of bile duct without cholangitis or cholecystitis with obstruction R74.8, Abnormal levels of other serum enzymes CPT copyright 2017 [employer]. All rights reserved. The codes documented in this report are preliminary and upon commissary steward review may be revised to meet current compliance requirements. Kevin Negrete MD 06/29/2018 4:13:45 PM This report has been signed electronically. Number of Addenda: 0 Note Initiated On: 06/29/2018 3:25 PM
[2018-06-29] MEDS: 0.9% Normal Saline 1,000 ML 100 ML IV (17:20)
[2018-06-29] MEDS: HYDROcodone Bitartrate/Apap 5/325 Tablet PO (19:57)
== END 2018-06-29 21:37 | disposition home or self-care (01) ==
LOC: ED 12:48 → SDC 14:02 → AC 14:04 → SDC 07-01 07:45 → MS3 07-01 07:45
PROVIDERS: Admitting Provider Surgery; Emergency Provider Emergency Medicine; Family Provider Student in an Organized Health Care Education/Training Program; PCP Student in an Organized Health Care Education/Training Program; Visit Provider Surgery
PROC: (CPT 43260; principal; 2018-06-29 15:25)
DX: K80.51 Calculus of bile duct without cholangitis or cholecystitis with obstruction (principal); R74.8 Abnormal levels of other serum enzymes; K59.00 Constipation, unspecified; N61.1 Abscess of the breast and nipple; Z86.14 Personal history of Methicillin resistant Staphylococcus aureus infection; F41.9 Anxiety disorder, unspecified; F32.9 Major depressive disorder, single episode, unspecified; Z87.442 Personal history of urinary calculi; Z79.899 Other long term (current) drug therapy; D50.9 Iron deficiency anemia, unspecified
CPT/HCPCS: 00732; 43262; 43264; 74177; 74328; 76000; 80048; 80076; 83690; 85025; 96361; 96365; 96375; 96376; 99218; 99284; J7030; Q9967; A4216; G0378; J2405

== ENCOUNTER 2018-07-04 09:15 | Outpatient (RCR) | payer MEDICAID, SELFPAY ==
[2018-06-09 01:15] VITALS: BP 139/83; PULSE 68; RESP 16; TEMP 36.6
[2018-06-13 09:36] VITALS: BP 123/67; PULSE 81; RESP 18; TEMP 36.4
--- NOTE | 2018-06-13 12:27 | PCM.WC.PN ---
(1) Non-pressure chronic ulcer of skin of other sites with fat layer exposed Status: Chronic Current Visit: Yes Code(s): L98.492 - Non-pressure chronic ulcer of skin of other sites with fat layer exposed (2) Abscess of chest wall Status: Acute Current Visit: No Code(s): L02.213 - Cutaneous abscess of chest wall Comment: abscess right lateral chest wall/lateral breast area (3) MRSA (methicillin resistant Staphylococcus aureus) infection Status: Acute Current Visit: No Code(s): A49.02 - Methicillin resistant Staphylococcus aureus infection, unspecified site Type of Wound Date of Service: 06/13/18 Chief Complaint: 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 History of Wound: Surgery 02/22/18 -surgical preparation right lateral chest wall/lateral breast with incision and drainage and excisional debridement abscess (48 cm2). Operative cultures?MRSA. She was discharged on doxycycline. Pre-albumin was 15.0 on 02/22/18. Surgery 04/05/2018 Surgical preparation right lateral chest wall with excision nonhealing painful MRSA ulcer and 10 cm complex secondary wound closure. Surgery 04/18/2018 Surgical preparation right lateral chest wall with incision and drainage and excisional debridement Pseudomonas abscess (40 cm?). Wound VAC restarted, sent home on IV Vancomycin and Cefepime Progress of Wound: Wound is improving. Periwound healed is now excoriated. - Physical Exam Vital Signs Temp Pulse Resp BP 97.6 F L 81 18 123/67 H 06/13/18 09:36 06/13/18 09:36 06/13/18 09:36 06/13/18 09:36 General: Alert, Oriented x3 HEENT: Atraumatic, PERRLA Oral: Moist Mucosa Lungs: Normal air movement Cardiovascular: Regular rate Extremities: No edema Skin: Ulcer/ Wound - Right chest/breast wound with excoriated nilsa wound. Wound Measurements and Assessment WC - Nurse 1 - General Ulcer Measurement Start: 06/13/18 09:35 Freq: Status: Active Protocol: Activity Type Activity Date Activity User E-Sign Co-Sign Detail Recorded Client Recorded Date Recorded By Document 06/13/18 09:36 [id number] 06/13/18 09:37 TM 06/13/18 09:36 Wound Center Nurse 1 [Ulcer Assessment] #1 RIGHT UPPER RIB AREA -Combined with other wound No -Current Size (cm) - Length 2.1 -Current Size (cm) - Width 2.2 -Current Size (cm) - Depth 2.1 -Total Square Cm 4.62 -Photo Taken No -Epithelialization Small 1-33% -Tunneling Yes -Tunneling Position (O'clock) 3 -Tunneling Distance (cm) 2.5 -Undermining/Tunneling No -Circular Undermining No -Classification - Thickness Full Thickness without Exposed Support Structure -Exudate Amt Medium (34-66%) -Exudate Type Serosanguineous -Wound Margin Distinct, Outline Attached -Granulation Amt Medium (34-66%) -Granulation Quality Red -Slough/Fibrin Yes -Necrosis Amt Medium (34-66%) -Necrotic Tissue Type Adherent Slough -Structure Exposed Fascia Fat Layer Exposed -Texture (Nilsa-wound Skin Appearance) Assessed Scarring -Moisture (Nilsa-wound Skin Appearance No Abnormality ) Assessed -Color (Nilsa-wound Skin Appearance) No Abnormality Assessed -Temperature (Nilsa-wound Skin No Abnormality Appearance) (Pt Warm) -Tenderness on Palpation (Nilsa-wound No Skin Appearance) -Ulcer Cleansing Rinsed/ Irrigated with Saline -Foul Odor after Cleansing No -Anesthetic Used 4% Lidocaine Solution [Edema Assessment] -Lower Limb Edema Present No WC - Nurse 2 - General Ulcer CM Notes Start: 06/13/18 09:35 Freq: Status: Active Protocol: Activity Type Activity Date Activity User E-Sign Co-Sign Detail Recorded Client Recorded Date Recorded By Document 06/13/18 09:59 [email or web address] [id number] 06/13/18 10:02 FRANCES 06/13/18 09:59 Wound Center Nurse 2 [Procedure/Treatment] #1 RIGHT UPPER RIB AREA -Time 10:01 -Correct Patient Yes -Correct Side, Site, Position Yes -Correct Procedure Yes -Procedure Performed Yes -Type of Procedure Debridement -Clinical Debridement Subcutaneous -Post Debridement Size (cm) - Length 2.1 -Post Debridement Size (cm) - Width 4.5 -Post Debridement Size (cm) - Depth 2.3 -Total Square Cm 9.45 -Wound/Ulcer Outcome Not Healed -Ulcer Cleansing Rinsed/ Irrigated with Saline -Foul Odor after Cleansing No -Bioengineered Tissue No -Bleeding Controlled with Pressure -Treatment Response Procedure Tolerated Well [See Physician Procedure note for Specifics] Pain Scale: 0-10 Numeric [Pain] -Is Patient Pain Free? Yes Musculoskeletal: No Tenderness to Palpation of Joints or Extremities Neurological: Neuro grossly intact Psych/Mental Status: Normal Affect, Appropriate Debridement Note Post-Debridement Measurements/Treatment WC - Nurse 2 - General Ulcer CM Notes Start: 06/13/18 09:35 Freq: Status: Active Protocol: Activity Type Activity Date Activity User E-Sign Co-Sign Detail Recorded Client Recorded Date Recorded By Document 06/13/18 09:59 [id number] 06/13/18 10:02 FRANCES 06/13/18 09:59 Wound Center Nurse 2 #1 RIGHT UPPER RIB AREA -Time 10:01 -Correct Patient Yes -Correct Side, Site, Position Yes -Correct Procedure Yes -Procedure Performed Yes -Type of Procedure Debridement -Clinical Debridement Subcutaneous -Post Debridement Size (cm) - Length 2.1 -Post Debridement Size (cm) - Width 4.5 -Post Debridement Size (cm) - Depth 2.3 -Total Square Cm 9.45 -Wound/Ulcer Outcome Not Healed -Ulcer Cleansing Rinsed/ Irrigated with Saline -Foul Odor after Cleansing No -Bioengineered Tissue No -Bleeding Controlled with Pressure -Treatment Response Procedure Tolerated Well Pain Scale: 0-10 Numeric Is Patient Pain Free? Yes Wound debrided: right breast/chest Laterality: Right Type of Debridement: Excisional debridement Anesthesia Used: 4% Lidocaine Solution Depth: Down to and including healthy tissue, in the subcutaneous layer Percentage of wound debrided: 100 Instrument Used: 3mm curette Tissue Removed: Subcutaneous tissue and slough Severity: Fat Layer Exposed Amount of bleeding with debridement: Mild Bleeding Controlled with: Pressure Patient tolerated procedure well Assessment/Plan Active Problems (Last Reviewed 05/10/18 @ 21:13 by Bucky Vega MD) Non-pressure chronic ulcer of skin of other sites with fat layer exposed (Chronic) Assessment: 1. Nonhealing MRSA ulcer right lateral chest wall. 2. MRSA. 3. Right lateral chest wall abscess. 4. Status post surgical preparation right lateral chest wall lateral breast with incision and drainage and excisional debridement abscess (48 cm square). 5. Pseudomonas aeruginosa Plan: Ulcer with a significant amount of slough. She is complaining of increased pain. Cultured wound today. Will continue Silver dressing. She has completed her home antibiotics and home Diflucan. Her nilsa wound is excoriated and itchy. Will restart Diflucan for a week to see if it improves her periwound. Prealbumin was 15.1 on 04/16/2018. Encourage nutritional supplementation with protein to help with healing process. Follow-up in [address] Garibay. Code Visit [id number]: [id number] Grace subq tissue 20 sq cm/<
[2018-06-20 09:43] VITALS: BP 119/79; PULSE 85; RESP 16; TEMP 37.4
--- NOTE | 2018-06-20 15:57 | PCM.WC.PN ---
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 History of Wound: Surgery 02/22/18 - Surgical preparation right lateral chest wall/lateral breast with incision and drainage and excisional debridement abscess (48 cm2). Operative cultures - MRSA. She was discharged on doxycycline. Pre-albumin was 15.0 on 02/22/18. Surgery 04/05/2018 - Surgical preparation right lateral chest wall with excision nonhealing painful MRSA ulcer and 10 cm complex secondary wound closure. Operative culture showed Pseudomonas aeroginosa. The incision became compromised secondary to the Pseudomonas and she was admitted for IV antibiotics. Surgery 04/18/2018 - Surgical preparation right lateral chest wall with incision and drainage and excisional debridement Pseudomonas abscess (40 cm?). Wound VAC restarted, sent home on IV Vancomycin and Cefepime. The IV antibiotics have been completed. The VAC has been stopped because of periwound issues. She is tolerating Silver dressing changes. Today she denies fever. Her appetite is good. She does complain of wound pain. Progress of Wound: Improved. - Physical Exam Vital Signs Temp Pulse Resp BP 99.3 F H 85 16 119/79 06/20/18 09:43 06/20/18 09:43 06/20/18 09:43 06/20/18 09:43 Wound Measurements and Assessment WC - Nurse 1 - General Ulcer Measurement Start: 06/13/18 09:35 Freq: Status: Active Protocol: Activity Type Activity Date Activity User E-Sign Co-Sign Detail Recorded Client Recorded Date Recorded By Document 06/20/18 09:43 [facility] [id number] 06/20/18 09:46 [facility] 06/20/18 09:43 Wound Center Nurse 1 [Ulcer Assessment] #1 RIGHT UPPER RIB AREA -Combined with other wound No -Current Size (cm) - Length 1.9 -Current Size (cm) - Width 3.8 -Current Size (cm) - Depth 1.6 -Total Square Cm 7.22 -Date of Last Picture (Recall this 06/20/18 field) -Photo Taken Yes -Epithelialization Small 1-33% -Tunneling No -Undermining/Tunneling Yes -Undermining/Tunneling Starts (O' 12 clock) -Undermining/Tunneling Ends (O'clock) 2 -Maximum Distance (cm) 1.5 -Circular Undermining No -Exudate Amt Small (1-33%) -Exudate Type Serosanguineous -Wound Margin Distinct, Outline Attached -Granulation Amt Large (67-100%) -Granulation Quality [place] -Slough/Fibrin Yes -Necrosis Amt Small (1-33%) -Necrotic Tissue Type Adherent Slough -Texture (Nilsa-wound Skin Appearance) Scarring -Moisture (Nilsa-wound Skin Appearance Assessed ) -Color (Nilsa-wound Skin Appearance) Assessed -Temperature (Nilsa-wound Skin No Abnormality Appearance) (Pt Warm) -Tenderness on Palpation (Nilsa-wound No Skin Appearance) -Ulcer Cleansing Rinsed/ Irrigated with Saline -Foul Odor after Cleansing No -Anesthetic Used 4% Lidocaine Solution - Nurse 2 - General Ulcer CM Notes Start: 06/13/18 09:35 Freq: Status: Active Protocol: Activity Type Activity Date Activity User E-Sign Co-Sign Detail Recorded Client Recorded Date Recorded By Document 06/20/18 10:18 [id number] 06/20/18 10:19 06/20/18 10:18 Wound Center Nurse 2 [Procedure/Treatment] -Time 10:19 -Correct Patient Yes -Correct Side, Site, Position Yes -Correct Procedure Yes -Procedure Performed Yes -Type of Procedure Debridement -Clinical Debridement Subcutaneous -Post Debridement Size (cm) - Length 2.0 -Post Debridement Size (cm) - Width 3.8 -Post Debridement Size (cm) - Depth 1.6 -Total Square Cm 7.60 -Wound/Ulcer Outcome Not Healed -Ulcer Cleansing Rinsed/ Irrigated with Saline -Foul Odor after Cleansing No -Bioengineered Tissue No -Bleeding Controlled with Pressure -Treatment Response Procedure Tolerated Well [See Physician Procedure note for Specifics] Pain Scale: 0-10 Numeric [Pain] -Is Patient Pain Free? Yes Debridement Note Post-Debridement Measurements/Treatment - Nurse 2 - General Ulcer CM Notes Start: 06/13/18 09:35 Freq: Status: Active Protocol: Activity Type Activity Date Activity User E-Sign Co-Sign Detail Recorded Client Recorded Date Recorded By Document 06/13/18 09:59 [id number] 06/13/18 10:02 Document 06/20/18 10:18 [id number] 06/20/18 10:19 06/13/18 06/20/18 09:59 10:18 Wound Center Nurse 2 #1 RIGHT UPPER RIB AREA -Time 10:01 10:19 -Correct Patient Yes Yes -Correct Side, Site, Position Yes Yes -Correct Procedure Yes Yes -Procedure Performed Yes Yes -Type of Procedure Debridement Debridement -Clinical Debridement Subcutaneous Subcutaneous -Post Debridement Size (cm) - Length 2.1 2.0 -Post Debridement Size (cm) - Width 4.5 3.8 -Post Debridement Size (cm) - Depth 2.3 1.6 -Total Square Cm 9.45 7.60 -Wound/Ulcer Outcome Not Healed Not Healed -Ulcer Cleansing Rinsed/ Rinsed/ Irrigated with Irrigated with Saline Saline -Foul Odor after Cleansing No No -Bioengineered Tissue No No -Bleeding Controlled with Pressure Pressure -Treatment Response Procedure Procedure Tolerated Well Tolerated Well Pain Scale: 0-10 Numeric Is Patient Pain Free? Yes Yes Wound debrided: #1 Right lateral chest wall. Laterality: Right Wound Grade/Stage: 3. Type of Debridement: Excisional debridement Anesthesia Used: 4% Lidocaine Solution Depth: Down to and including healthy tissue, in the subcutaneous layer Percentage of wound debrided: 100 Instrument Used: 7mm curette Tissue Removed: subcutaneous tissue. Severity: Fat Layer Exposed Amount of bleeding with debridement: Mild Bleeding Controlled with: Pressure Patient tolerated procedure well Assessment/Plan Assessment: 1. Nonhealing MRSA and Pseudomonas ulcer right lateral chest wall. 2. Pseudomonas abscess right lateral chest wall. 3. MRSA. 4. s/p surgical preparation right lateral chest wall with incision and drainage and excisional debridement Pseudomonas abscess (40 cm2). Plan: Continue Silver dressing changes daily. She has completed her IV antibiotics with Vancomycin and Cefepime. She finished the Diflucan for the periwound fungal rash. Prealbumin was 15.1 on 04/16/2018. Encourage nutritional supplementation with protein to help with healing process. Follow-up one week to see Nicole Nurse Practitioner. She has received script for Percocet for pain (30 tabs) on 06/17/18.
--- NOTE | 2018-06-22 15:57 | PN.PCM_ITS ---
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 History of Wound: Surgery 02/22/18 - Surgical preparation right lateral chest wall/lateral breast with incision and drainage and excisional debridement abscess (48 cm2). Operative cultures - MRSA. She was discharged on doxycycline. Pre-albumin was 15.0 on 02/22/18. Surgery 04/05/2018 - Surgical preparation right lateral chest wall with excision nonhealing painful MRSA ulcer and 10 cm complex secondary wound closure. Operative culture showed Pseudomonas aeroginosa. The incision became compromised secondary to the Pseudomonas and she was admitted for IV antibiotics. Surgery 04/18/2018 - Surgical preparation right lateral chest wall with incision and drainage and excisional debridement Pseudomonas abscess (40 cm?). Wound VAC restarted, sent home on IV Vancomycin and Cefepime. The IV antibiotics have been completed. The VAC has been stopped because of periwound issues. She is tolerating Silver dressing changes. Today she denies fever. Her appetite is good. She does complain of wound pain. Progress of Wound: Improved. - Physical Exam Vital Signs Temp Pulse Resp BP 99.3 F H 85 16 119/79 06/20/18 09:43 06/20/18 09:43 06/20/18 09:43 06/20/18 09:43 Wound Measurements and Assessment WC - Nurse 1 - General Ulcer Measurement Start: 06/13/18 09:35 Freq: Status: Active Protocol: Activity Type Activity Date Activity User E-Sign Co-Sign Detail Recorded Client Recorded Date Recorded By Document 06/20/18 09:43 [facility] [id number] 06/20/18 09:46 [facility] 06/20/18 09:43 Wound Center Nurse 1 [Ulcer Assessment] #1 RIGHT UPPER RIB AREA -Combined with other wound No -Current Size (cm) - Length 1.9 -Current Size (cm) - Width 3.8 -Current Size (cm) - Depth 1.6 -Total Square Cm 7.22 -Date of Last Picture (Recall this 06/20/18 field) -Photo Taken Yes -Epithelialization Small 1-33% -Tunneling No -Undermining/Tunneling Yes -Undermining/Tunneling Starts (O' 12 clock) -Undermining/Tunneling Ends (O'clock) 2 -Maximum Distance (cm) 1.5 -Circular Undermining No -Exudate Amt Small (1-33%) -Exudate Type Serosanguineous -Wound Margin Distinct, Outline Attached -Granulation Amt Large (67-100%) -Granulation Quality [place] -Slough/Fibrin Yes -Necrosis Amt Small (1-33%) -Necrotic Tissue Type Adherent Slough -Texture (Nilsa-wound Skin Appearance) Scarring -Moisture (Nilsa-wound Skin Appearance Assessed ) -Color (Nilsa-wound Skin Appearance) Assessed -Temperature (Nilsa-wound Skin No Abnormality Appearance) (Pt Warm) -Tenderness on Palpation (Nilsa-wound No Skin Appearance) -Ulcer Cleansing Rinsed/ Irrigated with Saline -Foul Odor after Cleansing No -Anesthetic Used 4% Lidocaine Solution - Nurse 2 - General Ulcer CM Notes Start: 06/13/18 09:35 Freq: Status: Active Protocol: Activity Type Activity Date Activity User E-Sign Co-Sign Detail Recorded Client Recorded Date Recorded By Document 06/20/18 10:18 [id number] 06/20/18 10:19 06/20/18 10:18 Wound Center Nurse 2 [Procedure/Treatment] -Time 10:19 -Correct Patient Yes -Correct Side, Site, Position Yes -Correct Procedure Yes -Procedure Performed Yes -Type of Procedure Debridement -Clinical Debridement Subcutaneous -Post Debridement Size (cm) - Length 2.0 -Post Debridement Size (cm) - Width 3.8 -Post Debridement Size (cm) - Depth 1.6 -Total Square Cm 7.60 -Wound/Ulcer Outcome Not Healed -Ulcer Cleansing Rinsed/ Irrigated with Saline -Foul Odor after Cleansing No -Bioengineered Tissue No -Bleeding Controlled with Pressure -Treatment Response Procedure Tolerated Well [See Physician Procedure note for Specifics] Pain Scale: 0-10 Numeric [Pain] -Is Patient Pain Free? Yes Debridement Note Post-Debridement Measurements/Treatment - Nurse 2 - General Ulcer CM Notes Start: 06/13/18 09:35 Freq: Status: Active Protocol: Activity Type Activity Date Activity User E-Sign Co-Sign Detail Recorded Client Recorded Date Recorded By Document 06/13/18 09:59 [id number] 06/13/18 10:02 Document 06/20/18 10:18 [id number] 06/20/18 10:19 06/13/18 06/20/18 09:59 10:18 Wound Center Nurse 2 #1 RIGHT UPPER RIB AREA -Time 10:01 10:19 -Correct Patient Yes Yes -Correct Side, Site, Position Yes Yes -Correct Procedure Yes Yes -Procedure Performed Yes Yes -Type of Procedure Debridement Debridement -Clinical Debridement Subcutaneous Subcutaneous -Post Debridement Size (cm) - Length 2.1 2.0 -Post Debridement Size (cm) - Width 4.5 3.8 -Post Debridement Size (cm) - Depth 2.3 1.6 -Total Square Cm 9.45 7.60 -Wound/Ulcer Outcome Not Healed Not Healed -Ulcer Cleansing Rinsed/ Rinsed/ Irrigated with Irrigated with Saline Saline -Foul Odor after Cleansing No No -Bioengineered Tissue No No -Bleeding Controlled with Pressure Pressure -Treatment Response Procedure Procedure Tolerated Well Tolerated Well Pain Scale: 0-10 Numeric Is Patient Pain Free? Yes Yes Wound debrided: #1 Right lateral chest wall. Laterality: Right Wound Grade/Stage: 3. Type of Debridement: Excisional debridement Anesthesia Used: 4% Lidocaine Solution Depth: Down to and including healthy tissue, in the subcutaneous layer Percentage of wound debrided: 100 Instrument Used: 7mm curette Tissue Removed: subcutaneous tissue. Severity: Fat Layer Exposed Amount of bleeding with debridement: Mild Bleeding Controlled with: Pressure Patient tolerated procedure well Assessment/Plan Assessment: 1. Nonhealing MRSA and Pseudomonas ulcer right lateral chest wall. 2. Pseudomonas abscess right lateral chest wall. 3. MRSA. 4. s/p surgical preparation right lateral chest wall with incision and drainage and excisional debridement Pseudomonas abscess (40 cm2). Plan: Continue Silver dressing changes daily. She has completed her IV antibiotics with Vancomycin and Cefepime. She finished the Diflucan for the periwound fungal rash. Prealbumin was 15.1 on 04/16/2018. Encourage nutritional supplementation with protein to help with healing process. Follow-up one week to see Nicole Nurse Practitioner. She has received script for Percocet for pain (30 tabs) on 06/17/18.
[2018-07-04 09:46] VITALS: BP 129/68; PULSE 76; RESP 18; TEMP 36.7
[2018-07-04 11:55] LABS: AST(SGOT) 37 U/L (15-37); Alanine Aminotransfer ALT/SGPT 124 U/L (13-56); Albumin, Serum 3.8 g/dL (3.2-5.0); Alkaline Phosphatase 177 U/L (45-117); Bilirubin, Direct 0.25 mg/dL (0.00-0.30); Protein, Total 7.8 g/dL (6.4-8.2)
--- NOTE | 2018-07-04 21:56 | PCM.WC.PN ---
Type of Wound Date of Service: 07/04/18 Chief Complaint: 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 History of Wound: Surgery 02/22/18 - Surgical preparation right lateral chest wall/lateral breast with incision and drainage and excisional debridement abscess (48 cm2). Operative cultures - MRSA. She was discharged on doxycycline. Pre-albumin was 15.0 on 02/22/18. Surgery 04/05/2018 - Surgical preparation right lateral chest wall with excision nonhealing painful MRSA ulcer and 10 cm complex secondary wound closure. Operative culture showed Pseudomonas aeroginosa. The incision became compromised secondary to the Pseudomonas and she was admitted for IV antibiotics. Surgery 04/18/2018 - Surgical preparation right lateral chest wall with incision and drainage and excisional debridement Pseudomonas abscess (40 cm?). Wound VAC restarted, sent home on IV Vancomycin and Cefepime. The IV antibiotics have been completed. The VAC has been stopped because of periwound issues. She is tolerating Silver dressing changes. Today she denies fever. Her appetite is good. She recently had her gall bladder removed laparoscopicially last week. Dr. Cleaning gave her a script for Perococet (25 tabs) after her gall bladder surgery. An additional stone needed to be removed using ERCP the next day. Progress of Wound: Improved. - Physical Exam Vital Signs Temp Pulse Resp BP 98.0 F 76 18 129/68 H 07/04/18 09:46 07/04/18 09:46 07/04/18 09:46 07/04/18 09:46 Wound Measurements and Assessment WC - Nurse 1 - General Ulcer Measurement Start: 06/13/18 09:35 Freq: Status: Active Protocol: Activity Type Activity Date Activity User E-Sign Co-Sign Detail Recorded Client Recorded Date Recorded By Document 07/04/18 09:46 DV [id number] 07/04/18 10:05 DV 07/04/18 09:46 Wound Center Nurse 1 [Ulcer Assessment] #1 RIGHT UPPER RIB AREA -Combined with other wound No -Current Size (cm) - Length 3.0 -Current Size (cm) - Width 0.8 -Current Size (cm) - Depth 2.0 -Total Square Cm 2.40 -Photo Taken No -Tunneling No -Undermining/Tunneling No -Circular Undermining No -Classification - Thickness Full Thickness without Exposed Support Structure -Exudate Amt None Present (0 %) -Wound Margin Distinct, Outline Attached -Granulation Amt Large (67-100%) -Granulation Quality Red -Slough/Fibrin Yes -Necrosis Amt Small (1-33%) -Necrotic Tissue Type Adherent Slough -Structure Exposed Fat Layer Exposed -Texture (Nilsa-wound Skin Appearance) Assessed Scarring -Moisture (Nilsa-wound Skin Appearance Assessed ) Weeping -Color (Nilsa-wound Skin Appearance) No Abnormality Assessed -Temperature (Nilsa-wound Skin No Abnormality Appearance) (Pt Warm) -Tenderness on Palpation (Nilsa-wound No Skin Appearance) -Ulcer Cleansing Rinsed/ Irrigated with Saline -Foul Odor after Cleansing No -Anesthetic Used 5% Lidocaine Gel - Nurse 2 - General Ulcer CM Notes Start: 06/13/18 09:35 Freq: Status: Active Protocol: Activity Type Activity Date Activity User E-Sign Co-Sign Detail Recorded Client Recorded Date Recorded By Document 07/04/18 10:29 [id number] 07/04/18 10:29 07/04/18 10:29 Wound Center Nurse 2 [Procedure/Treatment] -Time 10:29 -Correct Patient Yes -Correct Side, Site, Position Yes -Correct Procedure Yes -Procedure Performed Yes -Type of Procedure Debridement -Clinical Debridement Subcutaneous -Post Debridement Size (cm) - Length 3.1 -Post Debridement Size (cm) - Width 0.8 -Post Debridement Size (cm) - Depth 2.0 -Total Square Cm 2.48 -Wound/Ulcer Outcome Not Healed -Ulcer Cleansing Rinsed/ Irrigated with Saline -Foul Odor after Cleansing No -Bioengineered Tissue No -Bleeding Controlled with Pressure -Treatment Response Procedure Tolerated Well [See Physician Procedure note for Specifics] Pain Scale: 0-10 Numeric [Pain] -Is Patient Pain Free? Yes Debridement Note Post-Debridement Measurements/Treatment - Nurse 2 - General Ulcer CM Notes Start: 06/13/18 09:35 Freq: Status: Active Protocol: Activity Type Activity Date Activity User E-Sign Co-Sign Detail Recorded Client Recorded Date Recorded By Document 06/13/18 09:59 [id number] 06/13/18 10:02 Document 06/20/18 10:18 [id number] 06/20/18 10:19 Document 07/04/18 10:29 [id number] 07/04/18 10:29 06/13/18 06/20/18 07/04/18 09:59 10:18 10:29 Wound Center Nurse 2 #1 RIGHT UPPER RIB AREA -Time 10:01 10:19 10:29 -Correct Patient Yes Yes Yes -Correct Side, Site, Position Yes Yes Yes -Correct Procedure Yes Yes Yes -Procedure Performed Yes Yes Yes -Type of Procedure Debridement Debridement Debridement -Clinical Debridement Subcutaneous Subcutaneous Subcutaneous -Post Debridement Size (cm) - Length 2.1 2.0 3.1 -Post Debridement Size (cm) - Width 4.5 3.8 0.8 -Post Debridement Size (cm) - Depth 2.3 1.6 2.0 -Total Square Cm 9.45 7.60 2.48 -Wound/Ulcer Outcome Not Healed Not Healed Not Healed -Ulcer Cleansing Rinsed/ Rinsed/ Rinsed/ Irrigated with Irrigated with Irrigated with Saline Saline Saline -Foul Odor after Cleansing No No No -Bioengineered Tissue No No No -Bleeding Controlled with Pressure Pressure Pressure -Treatment Response Procedure Procedure Procedure Tolerated Well Tolerated Well Tolerated Well Pain Scale: 0-10 Numeric Is Patient Pain Free? Yes Yes Yes Wound debrided: #1 Right lateral chest wall. Laterality: Right Wound Grade/Stage: 3. Type of Debridement: Excisional debridement Anesthesia Used: 4% Lidocaine Solution Depth: Down to and including healthy tissue, in the subcutaneous layer Percentage of wound debrided: 100 Instrument Used: 7mm curette Tissue Removed: subcutaneous tissue. Severity: Fat Layer Exposed Amount of bleeding with debridement: Mild Bleeding Controlled with: Pressure Patient tolerated procedure well Assessment/Plan Assessment: 1. Nonhealing MRSA and Pseudomonas ulcer right lateral chest wall. 2. Pseudomonas abscess right lateral chest wall. 3. MRSA. 4. s/p surgical preparation right lateral chest wall with incision and drainage and excisional debridement Pseudomonas abscess (40 cm2). Plan: Continue Silver dressing changes daily. She has completed her IV antibiotics with Vancomycin and Cefepime. She finished the Diflucan for the periwound fungal rash. Prealbumin was 15.1 on 04/16/2018. Encourage nutritional supplementation with protein to help with healing process. Follow-up 2 weeks to see Nicole Nurse Practitioner. She received a script for Percocet for pain from Dr. Cleaning (25 tabs) last week right after her gall bladder surgery.
== END 2018-07-08 23:59 ==
LOC: WC 09:15
PROVIDERS: Surgery; Family Provider Student in an Organized Health Care Education/Training Program; PCP Student in an Organized Health Care Education/Training Program; Referring Provider Surgery; Visit Provider Surgery
DX: L98.492 Non-pressure chronic ulcer of skin of other sites with fat layer exposed (principal); Z86.14 Personal history of Methicillin resistant Staphylococcus aureus infection; L02.213 Cutaneous abscess of chest wall; B96.5 Pseudomonas (aeruginosa) (mallei) (pseudomallei) as the cause of diseases classified elsewhere
CPT/HCPCS: 11042; 36415; 80076; 87070; 87075; 87205

== ENCOUNTER 2018-07-11 08:26 | Outpatient (RCR) | payer MEDICAID, SELFPAY ==
[2018-06-29 17:49] VITALS: BMI 35.4
[2018-07-09 01:05] VITALS: BP 129/68; PULSE 76; RESP 18; TEMP 36.7
[2018-07-11 09:19] VITALS: BP 124/69; PULSE 73; RESP 16; TEMP 36.6; BMI 35.4
--- NOTE | 2018-07-11 11:46 | PN.PCM_ITS ---
(1) Non-pressure chronic ulcer of skin of other sites with fat layer exposed Status: Chronic Current Visit: Yes Code(s): L98.492 - Non-pressure chronic ulcer of skin of other sites with fat layer exposed (2) MRSA (methicillin resistant Staphylococcus aureus) infection Status: Acute Current Visit: No Code(s): A49.02 - Methicillin resistant Staphylococcus aureus infection, unspecified site Type of Wound Date of Service: 07/11/18 Chief Complaint: 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 History of Wound: Surgery 02/22/18 - Surgical preparation right lateral chest wall/lateral breast with incision and drainage and excisional debridement abscess (48 cm2). Operative cultures - MRSA. She was discharged on doxycycline. Pre-albumin was 15.0 on 02/22/18. Surgery 04/05/2018 - Surgical preparation right lateral chest wall with excision nonhealing painful MRSA ulcer and 10 cm complex secondary wound closure. Operative culture showed Pseudomonas aeroginosa. The incision became compromised secondary to the Pseudomonas and she was admitted for IV antibiotics. Surgery 04/18/2018 - Surgical preparation right lateral chest wall with incision and drainage and excisional debridement Pseudomonas abscess (40 cm?). Wound VAC restarted, sent home on IV Vancomycin and Cefepime. The IV antibiotics have been completed. The VAC has been stopped because of periwound issues. She is tolerating Silver dressing changes. Today she denies fever. Her appetite is good. She does complain of wound pain. Progress of Wound: Improved. Nilsa wound is becoming excoriated. - Physical Exam Vital Signs Temp Pulse Resp BP 97.8 F 73 16 124/69 H 07/11/18 09:19 07/11/18 09:19 07/11/18 09:19 07/11/18 09:19 General: Alert, Oriented x3, Cooperative HEENT: Atraumatic, PERRLA Lungs: Normal air movement Cardiovascular: Regular rate Extremities: No edema, Capillary Refill Less than 3 Seconds Skin: Ulcer/ Wound - Right lateral chest ulcer. Wound Measurements and Assessment WC - Nurse 1 - General Ulcer Measurement Start: 07/11/18 09:19 Freq: Status: Active Protocol: Activity Type Activity Date Activity User E-Sign Co-Sign Detail Recorded Client Recorded Date Recorded By Document 07/11/18 09:19 [id number] 07/11/18 09:25 CS 07/11/18 09:19 Wound Center Nurse 1 [Ulcer Assessment] #1 RIGHT UPPER RIB AREA -Combined with other wound No -Current Size (cm) - Length 0.3 -Current Size (cm) - Width 3.7 -Current Size (cm) - Depth 1.7 -Total Square Cm 1.11 -Photo Taken No -Epithelialization Small 1-33% -Tunneling No -Undermining/Tunneling No -Circular Undermining No -Exudate Amt Medium (34-66%) -Exudate Type Serosanguineous -Wound Margin Distinct, Outline Attached -Granulation Amt Medium (34-66%) -Granulation Quality [place] Red -Slough/Fibrin Yes -Necrosis Amt None Present (0 %) -Necrotic Tissue Type Adherent Slough -Structure Exposed None/Limited to Skin Breakdown -Texture (Nilsa-wound Skin Appearance) Friable Scarring -Moisture (Nilsa-wound Skin Appearance No Abnormality ) Assessed -Color (Nilsa-wound Skin Appearance) No Abnormality Assessed -Temperature (Nilsa-wound Skin No Abnormality Appearance) (Pt Warm) -Tenderness on Palpation (Nilsa-wound No Skin Appearance) -Ulcer Cleansing Rinsed/ Irrigated with Saline -Foul Odor after Cleansing No -Anesthetic Used 4% Lidocaine Solution [Edema Assessment] -Lower Limb Edema Present NA - Nurse 2 - General Ulcer CM Notes Start: 07/11/18 09:19 Freq: Status: Active Protocol: Activity Type Activity Date Activity User E-Sign Co-Sign Detail Recorded Client Recorded Date Recorded By Document 07/11/18 09:39 FRANCES [id number] 07/11/18 09:42 FRANCES 07/11/18 09:39 Wound Center Nurse 2 [Procedure/Treatment] #1 RIGHT UPPER RIB AREA -Time 09:40 -Correct Patient Yes -Correct Side, Site, Position Yes -Correct Procedure Yes -Procedure Performed Yes -Type of Procedure Debridement -Clinical Debridement Subcutaneous -Post Debridement Size (cm) - Length 1.0 -Post Debridement Size (cm) - Width 3.0 -Post Debridement Size (cm) - Depth 1.3 -Total Square Cm 3.00 -Wound/Ulcer Outcome Not Healed -Ulcer Cleansing Rinsed/ Irrigated with Saline -Foul Odor after Cleansing No -Bioengineered Tissue No -Bleeding Controlled with Pressure -Offloading No [See Physician Procedure note for Specifics] Pain Scale: 0-10 Numeric [Pain] -Is Patient Pain Free? Yes Musculoskeletal: No Tenderness to Palpation of Joints or Extremities, No Muscle Wasting Neurological: Neuro grossly intact Psych/Mental Status: Normal Affect, Appropriate Debridement Note Post-Debridement Measurements/Treatment WC - Nurse 2 - General Ulcer CM Notes Start: 07/11/18 09:19 Freq: Status: Active Protocol: Activity Type Activity Date Activity User E-Sign Co-Sign Detail Recorded Client Recorded Date Recorded By Document 07/11/18 09:39 [id number] 07/11/18 09:42 FRANCES 07/11/18 09:39 Wound Center Nurse 2 #1 RIGHT UPPER RIB AREA -Time 09:40 -Correct Patient Yes -Correct Side, Site, Position Yes -Correct Procedure Yes -Procedure Performed Yes -Type of Procedure Debridement -Clinical Debridement Subcutaneous -Post Debridement Size (cm) - Length 1.0 -Post Debridement Size (cm) - Width 3.0 -Post Debridement Size (cm) - Depth 1.3 -Total Square Cm 3.00 -Wound/Ulcer Outcome Not Healed -Ulcer Cleansing Rinsed/ Irrigated with Saline -Foul Odor after Cleansing No -Bioengineered Tissue No -Bleeding Controlled with Pressure -Offloading No Pain Scale: 0-10 Numeric Is Patient Pain Free? Yes Wound debrided: Right chest Laterality: Right Type of Debridement: Excisional debridement Anesthesia Used: 4% Lidocaine Solution Depth: Down to and including healthy tissue, in the subcutaneous layer Percentage of wound debrided: 100 Instrument Used: 3mm curette Tissue Removed: Subcutaneous tissue and slough Severity: Fat Layer Exposed Amount of bleeding with debridement: Mild Bleeding Controlled with: Pressure, Compression and gauze Patient tolerated procedure well Assessment/Plan Active Problems (Last Reviewed 06/29/18 @ 13:41 by Caity Sow PA-C) Non-pressure chronic ulcer of skin of other sites with fat layer exposed (Chronic) Assessment: 1. Nonhealing MRSA and Pseudomonas ulcer right lateral chest wall. 2. Pseudomonas abscess right lateral chest wall. 3. MRSA. 4. s/p surgical preparation right lateral chest wall with incision and drainage and excisional debridement Pseudomonas abscess (40 cm2). Plan: Continue Silver dressing changes daily. She has completed her IV antibiotics with Vancomycin and Cefepime. She finished the Diflucan for the periwound fungal rash. Prealbumin was 15.1 on 04/16/2018. Encourage nutritional supplementation with protein to help with healing process. Follow-up one week. She was started on Neurotin for right lateral chest burning nerve pain on 07/08/18. She will use nystatin cream to nilsa wound 2-3 times per day to help with the excoriated periwound. Code Visit 111xxx-113xx: [id number] Grace subq tissue 20 sq cm/<
--- OUTSIDE RECORDS SUMMARY | 2018-09-03 08:36 | XMS RPT_ITS ---
:1995 Author Organization OHIP Support Name Relationship Address Phone EMORY COTA Unavailable [address] + [place] [address] UE Unavailable Unavailable Unavailable BERNAL, EUGENIA Unavailable [address] + [place] [address] EMORY COTA Unavailable [address] + [place] [address] UE Unavailable Unavailable Unavailable BERNAL, EUGENIA Unavailable [address] + [place] [address] EMORY COTA Unavailable [address] + [place] [address] UE Unavailable Unavailable Unavailable BERNAL, EUGENIA Unavailable [address] + [place] [address] EMORY COTA Unavailable [address] + [place] [address] UE Unavailable Unavailable Unavailable BERNAL, EUGENIA Unavailable [address] + [place] [address] EMORY COTA Unavailable [address] + [place] [address] UE Unavailable Unavailable Unavailable BERNAL, EUGENIA Unavailable [address] + [place] [address] EMORY COTA Unavailable [address] + [place] [address] UE Unavailable Unavailable Unavailable BERNAL, EUGENIA Unavailable Unavailable + [place] [address] EMORY COTA Unavailable [address] + [place] [address] UE Unavailable Unavailable Unavailable BERNAL, EUGENIA Unavailable [address] + [place] [address] EMORY COTA Unavailable [address] + [place] [address] UE Unavailable Unavailable Unavailable BERNAL, EUGENIA Unavailable Unavailable + [place] [address] COTA EMORY Unavailable [address] + [place] [address] UE Unavailable Unavailable Unavailable BERNAL, EUGENIA Unavailable Unavailable + [place] [address] COTA EMORY Unavailable [address] + [place] [address] UE Unavailable Unavailable Unavailable BERNAL, EUGENIA Unavailable Unavailable + [place] [address] COTA EMORY Unavailable [address] + [place] [address] UE Unavailable Unavailable Unavailable BERNAL, EUGENIA Unavailable Unavailable + [place] [address] COTA EMORY Unavailable [address] + [place] [address] UE Unavailable Unavailable Unavailable BERNAL, EUGENIA Unavailable [address] + [place] [address] CIPRIANO EMORY Unavailable [address] + [place] [address] UE Unavailable Unavailable Unavailable BERNAL, EUGENIA Unavailable Unavailable + [place] [address] CIPRIANO EMORY Unavailable [address] + [place] [address] UE Unavailable Unavailable Unavailable BERNAL, EUGENIA Unavailable Unavailable + [place] [address] COTA EMROY Unavailable [address] + [place] [address] UE Unavailable Unavailable Unavailable BERNAL, EUGENIA Unavailable Unavailable + [place] [address] COTA EMORY Unavailable [address] + [place] [address] UE Unavailable Unavailable Unavailable BERNAL, EUGENIA Unavailable Unavailable + [place] [address] COTA EMORY Unavailable [address] + [place] [address] UE Unavailable Unavailable Unavailable BERNAL, EUGENIA Unavailable Unavailable + [place] [address] CIPRIANO EMORY Unavailable [address] + [place] [address] UE Unavailable Unavailable Unavailable BERNAL, EUGENIA Unavailable Unavailable + [place] [address] COTA EMORY Unavailable [address] + [place] [address] UE Unavailable Unavailable Unavailable BERNAL, EUGENIA Unavailable Unavailable + [place] [address] CIPRIANO EMORY Unavailable [address] + [place] [address] UE Unavailable Unavailable Unavailable BERNAL, EUGENIA Unavailable Unavailable + [place] [address] CIPRIANO EMORY Unavailable [address] + [place] [address] UE Unavailable Unavailable Unavailable BERNAL, EUGENIA Unavailable Unavailable + [place] [address] CIPRIANO EMORY Unavailable [address] + [place] [address] UE Unavailable Unavailable Unavailable BERNAL, EUGENIA Unavailable Unavailable + [place] [address] CIPRIANO EMORY Unavailable [address] + [place] [address] UE Unavailable Unavailable Unavailable BERNAL, EUGENIA Unavailable Unavailable + [place] [address] COTA EMORY Unavailable [address] + [place] [address] UE Unavailable Unavailable Unavailable BERNAL, EUGENIA Unavailable Unavailable + [place] [address] COTA EMORY Unavailable [address] + [place] [address] UE Unavailable Unavailable Unavailable BERNAL, EUGENIA Unavailable Unavailable + [place] [address] COTA EMORY Unavailable [address] + [place] [address] UE Unavailable Unavailable Unavailable BERNAL, EUGENIA Unavailable Unavailable + [place] [address] COTA EMORY Unavailable [address] + [place] [address] UE Unavailable Unavailable Unavailable BERNAL, EUGENIA Unavailable [address] + [place] [address] COTA EMORY Unavailable [address] + [place] [address] UE Unavailable Unavailable Unavailable BERNAL, EUGENIA Unavailable Unavailable + [place] [address] COTA EMORY Unavailable [address] + [place] [address] UE Unavailable Unavailable Unavailable BERNAL, EUGENIA Unavailable Unavailable + [place] [address] COTA EMORY Unavailable [address] + [place] [address] UE Unavailable Unavailable Unavailable BERNAL, EUGENIA Unavailable Unavailable + [place] [address] COTA EMORY Unavailable [address] + [place] [address] UE Unavailable Unavailable Unavailable BERNAL, EUGENIA Unavailable Unavailable + [place] [address] COTA EMORY Unavailable [address] + [place] [address] UE Unavailable Unavailable Unavailable BERNAL, EUGENIA Unavailable Unavailable + [place] [address] COTA EMORY Unavailable [address] + [place] [address] UE Unavailable Unavailable Unavailable BERNAL, EUGENIA Unavailable Unavailable + [place] [address] COTA EMORY Unavailable [address] + [place] [address] UE Unavailable Unavailable Unavailable COTA, EMORY Unavailable [address] + [place] [address] UE Unavailable Unavailable Unavailable BERNAL, EUGENIA Unavailable Unavailable + [place] [address] COTA EMOYR Unavailable [address] + [place] [address] UE Unavailable Unavailable Unavailable BERNAL, EUGENIA Unavailable Unavailable + [place] [address] COTA EMORY Unavailable [address] + [place] [address] WOODA Unavailable [address] + [place] [address] EMORY COTA Unavailable [address] + [place] [address] WOODA Unavailable [address] + [place] [address] CIPRIANO EMORY Unavailable [address] + [place] [address] TOMBLIN, PEG Unavailable [address] + [place] [address] WOODA Unavailable [address] + [place] [address] EMORY COTA Unavailable [address] + [place] [address] TOMBLIN, PEG Unavailable [address] + [place] [address] WOODA Unavailable [address] + [place] [address] EMORY COTA Unavailable [address] + [place] [address] TOMBLIN, PEG Unavailable [address] + [place] [address] WOODA Unavailable [address] + [place] [address] EMORY COTA Unavailable [address] + [place] [address] TOMBLIN, PEG Unavailable [address] + [place] [address] WOODA Unavailable [address] + [place] [address] EMORY COTA Unavailable [address] + [place] [address] UE Unavailable Unavailable Unavailable BERNAL, EUGENIA Unavailable Unavailable + [place] [address] EMORY COTA Unavailable [address] + [place] [address] UE Unavailable Unavailable Unavailable BERNAL, EUGENIA Unavailable Unavailable + [place] [address] EMORY COTA Unavailable [address] + [place] [address] TOMBLIN, PEG Unavailable [address] + [place] [address] WOODA Unavailable [address] + [place] [address] EMORY COTA Unavailable [address] + [place] [address] TOMBLIN, PEG Unavailable [address] + [place] [address] WOODA Unavailable [address] + [place] [address] EMORY COTA Unavailable [address] + [place] [address] TOMBLIN, PEG Unavailable [address] + [place] [address] WOODA Unavailable [address] + [place] [address] EMORY COTA Unavailable [address] + [place] [address] TOMBLIN, PEG Unavailable [address] + [place] [address] WOODA Unavailable [address] + [place] [address] EMORY COTA Unavailable [address] + [place] [address] TOMBLIN, PEG Unavailable [address] + [place] [address] WOODA Unavailable [address] + [place] [address] CIPRIANO EMORY Unavailable [address] + [place] [address] TOMBLIN, PEG Unavailable [address] + [place] [address] WOODA Unavailable [address] + [place] [address] EMORY COTA Unavailable [address] + [place] [address] TOMBLIN, PEG Unavailable [address] + [place] [address] WOODA Unavailable [address] + [place] [address] EMORY COTA Unavailable [address] + [place] [address] TOMBLIN, PEG Unavailable [address] + [place] [address] WOODA Unavailable [address] + [place] [address] DAILY RECORD Unavailable . +. [place] [address] CIPRIANO EMORY Unavailable [address] + [place] [address] TOMBLIN, PEG Unavailable [address] + [place] [address] CIPRIANO EMORY Unavailable [address] + [place] [address] TOMBLIN, PEG Unavailable [address] + [place] [address] UE Unavailable Unavailable Unavailable COTA, EMORY Unavailable [address] + [place] [address] TOMBLIN, PEG Unavailable [address] + [place] [address] UE Unavailable Unavailable Unavailable Care Team Providers Name Role Phone CAITY ROSENBERG ([facility]) Attending Unavailable POE, DARIO Jean Carlos Attending Unavailable POE, DARIO L Referring Unavailable POE, DARIO L Referring Unavailable POE, DARIO L Referring Unavailable POE, DARIO L Attending Unavailable POE, DARIO L Referring Unavailable POE, DARIO L Attending Unavailable GIL FRANKS Attending Unavailable ADAIR ALFONSO (PA-C) Referring Unavailable EMPERATRIZ TREVINO ([facility]) Attending Unavailable ADAIR ALFONSO (PA-C) Referring Unavailable POE, DARIO Jean Carlos Attending Unavailable POE, DARIO L Referring Unavailable GIL FRANKS Admitting Unavailable GIL FRANKS Attending Unavailable PROVIDER, UNKNOWN Referring Unavailable No, PCP Primary Care Unavailable romelia morris Attending Unavailable Arleth Hahn Attending Unavailable Poe, Dario Referring Unavailable Poe, Dario Primary Care Unavailable Ken Zambrano Attending Unavailable Poe, Dario Primary Care Unavailable Jagdish Valdivia Attending Unavailable Poe, Dario Primary Care Unavailable Tina, Moe Admitting Unavailable Ju Cruz Attending Unavailable Romelia Morris Consulting Unavailable Tina, Moe Admitting Unavailable Poe, Dario Primary Care Unavailable Tina, Meo Consulting Unavailable Carlos Enrique Hernandez Attending Unavailable Tina, Moe Admitting Unavailable Sementi, Ju Attending Unavailable Poe, Dario Primary Care Unavailable Slaby, Romelia Consulting Unavailable Sementi, Ju Consulting Unavailable Tina, Moe Admitting Unavailable Slaby, Romelia Attending Unavailable Poe, Dario Primary Care Unavailable Slaby, Romelia Consulting Unavailable Sementi, Uj Consulting Unavailable Tina, Moe Admitting Unavailable Slaby, Romelia Attending Unavailable Poe, [place] Primary Care Unavailable Slaby, Romelia Consulting Unavailable Sementi, Ju Consulting Unavailable Tina, Moe Admitting Unavailable Sementi, Ju Attending Unavailable Poe, [place] Primary Care Unavailable Slaby, Romelia Consulting Unavailable Sementi, Ju Consulting Unavailable Tina, Moe Admitting Unavailable Sementi, Ju Attending Unavailable Poe, [place] Primary Care Unavailable Slaby, Romelia Consulting Unavailable Sementi, Ju Consulting Unavailable Tina, Moe Admitting Unavailable Slaby, Romelia Attending Unavailable Poe, [place] Primary Care Unavailable Slaby, Romelia Consulting Unavailable Sementi, Ju Consulting Unavailable Slaby, Romelia Attending Unavailable Poe, [place] Primary Care Unavailable Slaby, Romelia Attending Unavailable Slaby, Romelia Referring Unavailable Poe, Dario Primary Care Unavailable Slaby, Romelia Attending Unavailable Slaby, Romelia Referring Unavailable Poe, [place] Primary Care Unavailable Slaby, Romelia Consulting Unavailable Slaby, Romelia Attending Unavailable Slaby, Romelia Referring Unavailable Poe, Dario Primary Care Unavailable Slaby, Romelia Consulting Unavailable Slaby, Romelia Attending Unavailable Poe, [place] Primary Care Unavailable Slaby, Romelia Attending Unavailable Poe, Dario Referring Unavailable Poe, [place] Primary Care Unavailable Slaby, Romelia Attending Unavailable Poe, Dario Referring Unavailable Poe, Dario Primary Care Unavailable Slaby, Romelia Admitting Unavailable Slaby, Romelia Attending Unavailable Poe, Dario Primary Care Unavailable Slaby, Romelia Admitting Unavailable Slaby, Romelia Attending Unavailable Poe, Dario Primary Care Unavailable Slaby, Romelia Consulting Unavailable Slaby, Romelia Attending Unavailable Poe, Dario Referring Unavailable Poe, Dario Primary Care Unavailable Christa Davis Attending Unavailable Slaby, Romelia Admitting Unavailable Slaby, Romelia Attending Unavailable Poe, Dario Primary Care Unavailable Slaby, Romelia Consulting Unavailable Slaby, Romelia Attending Unavailable Poe, Dario Primary Care Unavailable Slaby, Romelia Consulting Unavailable Slaby, Romelia Attending Unavailable Poe, Dario Primary Care Unavailable Slaby, Romelia Consulting Unavailable Slaby, Romelia Admitting Unavailable Slaby, Romelia [facility] Unavailable Romelia Morris Consulting Unavailable Nicole Aguirre Attending Unavailable [facility] Unavailable Romelia Morris Consulting Unavailable Romelia Morris Attending [facility] Unavailable Nicole Aguirre Attending Unavailable [facility] Unavailable Romelia Morris Consulting [facility] Unavailable AgyepongBucky Admitting Unavailable Romelia Morris Consulting Unavailable Tiago Almaraz Attending Unavailable Emory Flannery Consulting Unavailable Sherrie, Cassandra Consulting Unavailable Agyepong, Bucky Admitting Unavailable Agyepong, Bucky Attending [facility] Unavailable Agyeponana, Bucky Consulting Unavailable Agyepong, Bucky Admitting [facility]available [facility] Unavailable Romelia Morris Consulting Unavailable Tiago Almaraz Attending Unavailable Alma Delia, Emory Consulting Unavailable Sherrie, Cassandra Consulting Unavailable Tiago Almaraz Consulting Unavailable Agjimmy, Bucky Admitting Unavailable Romelia Morris Attending [facility] Unavailable Romelia Morris Consulting Unavailable Emory Flannery Consulting Unavailable Sherrie, Cassandra Consulting Unavailable Tiago Almaraz Consulting Unavailable Romelia Morris Attending Un[facility] Unavailable Romelia Morris Consulting Unavailable Agyeponana, Bucky Admitting Unavailable Sherrie, Cassandra Attending Un[facility] Unavailable Romelia Morris Consulting Unavailable Alma Delia, Emory Consulting Unavailable Sherrie, Cassandra Consulting Unavailable Tiago Almaraz Consulting Unavailable Agyepong, Bucky Admitting Unavailable [facility] Unavailable Romelia Morris Consulting Unavailable Tiago Almaraz Attending Unavailable Alma Delia, Emory Consulting Unavailable Sherrie, Cassandra Consulting Unavailable Tiago Almaraz Consulting Unavailable Tiago Almaraz Attending Unavailable Agyepong, Bucky Admitting Unavailable [facility] Unavailable Romelia Morris Consulting Unavailable Alma Delia, Emory Consulting Unavailable Sherrie, Cassandra Consulting Unavailable Tiago Almaraz Consulting Unavailable Agyepong, Bucky Admitting Unavailable Romelia Morris Attending [facility] Unavailable Slaby, Romelia Consulting Unavailable Alma Delia, Emory Consulting Unavailable Sherrie, Cassandra Consulting Unavailable Tiago Almaraz Consulting Unavailable TimothyNicole E Attending Unavailable Poe, Dario Primary Care Unavailable Slaby, Romelia Consulting Unavailable Slaby, Romelia Attending Unavailable Poe, Dario Primary Care Unavailable Slabsoledad, Romelia Referring Unavailable Robotham, Laura Consulting Unavailable Slaby, Romelia Attending Unavailable Poe, Dario Primary Care Unavailable Slaby, Romelia Consulting Unavailable Timothy, Nicole E Attending Unavailable Poe, Dario Primary Care Unavailable Slaby, Romelia Consulting Unavailable Sánchez Marail Attending Unavailable Bucky Vega Referring Unavailable Slaby, Romelia Attending Unavailable Poe, Dario Primary Care Unavailable Slaby, Romelia Consulting Unavailable Poe, [place] Primary Care Unavailable Robotham, Laura Admitting Unavailable Robotham, Laura Attending Unavailable Robotham, Laura Admitting Unavailable Sow PA-C, Caity Attending Unavailable [facility] Unavailable Robotham, Laura Consulting Unavailable Robotham, Laura Admitting Unavailable Robotham, Laura Attending Unavailable Poe, Dario Primary Care Unavailable Robotham, Laura Consulting Unavailable Poe, Dario Primary Care Unavailable Kevin Negrete Attending Unavailable Calabririna, Kevin Admitting Unavailable Sow PA-C, Caity Attending Unavailable Poe, [place] Primary Care Unavailable Robotham, Laura Attending Unavailable Lani, Romelia Attending Unavailable Slaby, Romelia Referring Unavailable Poe, Dario Primary Care Unavailable Robotham, Laura Consulting Unavailable Slabsoledad, Romelia Attending Unavailable Slaby, Romelia Referring Unavailable Poe, Dario Primary Care Unavailable Robotham, Laura Consulting Unavailable Lani, Romelia Consulting Unavailable Kevin Negrete Attending Unavailable Nicole Aguirre E Attending Unavailable Slaby, Romelia Referring Unavailable Poe, Dario Primary Care Unavailable Robotham, Laura Consulting Unavailable Slaby, Romelia Consulting Unavailable Crow, [place] Attending Unavailable Brandon Toussaint Referring Unavailable PROBLEMS PROBLEMS DATE TYPE CONDITION / CODE ATTENDING STATUS SOURCE 07/25/2018 Unknown L98.492 - Romelia Morris Active [place] Non-pressure chronic Community ulcer of skin of Hospital other sites with fat Repository layer exposed / L98.492(ICD-10) 07/11/2018 Unknown R74.8 - Abnormal Jacki Negrete levels of other [facility] serum enzymes / Hospital R74.8(ICD-10) Repository 07/11/2018 Unknown K80.51 - Calculus of [place], Active [place] bile duct without [facility] cholangitis or Hospital cholecystitis with Repository obstruction / K80.51(ICD-10) 06/28/2018 Unknown G89.18 - Other acute Robotham, Active [facility] postprocedural pain [facility] Community / G89.18(ICD-10) Hospital Repository 07/12/2018 Unknown R00.1 - Bradycardia, Crow, Ji Active [facility] unspecified / Community R00.1(ICD-10) Hospital Repository 06/13/2018 Unknown A49.02 - Methicillin Romelia Morris Active [facility] resistant [facility] Staphylococcus Hospital aureus infection, Repository unspecified site / A49.02(ICD-10) 06/13/2018 Unknown A49.8 - Other Romelia Morris Active [facility] bacterial infections Community of unspecified site Hospital / A49.8(ICD-10) Repository 06/13/2018 Unknown L02.213 - Cutaneous Romelia Morris Active [place] abscess of chest Community wall / Hospital L02.213(ICD-10) Repository 06/20/2018 Unknown R07.89 - Other chest Crow, Keeling Active [place] pain / Community R07.89(ICD-10) Hospital Repository 05/16/2018 Unknown D70.9 - Neutropenia, Romelia Morris Active [place] unspecified / Community D70.9(ICD-10) Hospital Repository 05/16/2018 Unknown D64.9 - Anemia, Romelia Morris Active [facility] unspecified / Community D64.9(ICD-10) Hospital Repository 05/16/2018 Unknown D61.818 - Other Romelia Morris Active [place] pancytopenia / Community D61.818(ICD-10) Hospital Repository 05/16/2018 Unknown D50.9 - Iron Romelia Morris Active [place] deficiency anemia, Community unspecified / Hospital D50.9(ICD-10) Repository 04/27/2018 Admitting Unsp opn wnd r frnt romelia morris Active [facility] Diagnosis wl of thorax w/o System penet thor cavity, Repository init / S21.101A(ICD-10) 03/04/2018 Unknown L03.313 - Cellulitis Lani Romelia Active [facility] of chest wall / Community L03.313(ICD-10) Hospital Repository 02/03/2018 Active Sacrococcygeal FRANKS, GIL C Active [facility] disorders, not Clinic Other elsewhere classified [place] / M53.3(ICD-10) Repository 11/01/2017 Active Lumbago with NA Active [facility] sciatica, left side Clinic Main / M54.42(ICD-10) [place] Repository 11/01/2017 Active Other chronic pain / NA Active [facility] G89.29(ICD-10) Clinic Main [place] Repository 11/01/2017 Active Arthrodesis status / NA Active [facility] Z98.1(ICD-10) Clinic Main [place] Repository 11/01/2017 Active Other symptoms and NA Active [facility] signs involving the Clinic Main musculoskeletal [place] system / Repository R29.898(ICD-10) PROCEDURES PROCEDURES No Procedure Records FoundRESULTS RESULTS 12 LEAD ELECTROCARDIOGRAM Observed: 07/08/2018 Status: F Source: [place] 9:17 AM [facility] REPOSITORY [facility] Cardiovascular Services [address] [place] [address] 12 Lead EKG 06/27/18 1330 MR#: [id number] Acct: [id number] Name: SANTIAGO SALGUERO Rep #: [id number] : 1995 23 From: Ji Maria MD Attending Dr: Laura Cleaning MD Status: DIS ROCKY Ordering Dr: Brandon Toussaint MD Date: 06/27/18 Location: [facility] Sex: F C Admitted: 06/27/18 Test Reason : PRE-OP Blood Pressure : / mmHG Vent. Rate : 054 BPM Atrial Rate : 054 BPM P-R Int : 128 ms QRS Dur : 100 ms QT Int : 438 ms P-R-T Axes : 020 024 001 degrees QTc Int : 415 ms Sinus bradycardia Otherwise normal ECG Confirmed by JI MARIA MD ([id number]), sound editor MADISON SALGUERO ([id number]) on 07/01/2018 1:44:14 PM Referred By: JENARO Confirmed By:JI MARIA MD 07/01/18 1344 Date Ji Maria MD CC: Brandon Toussaint MD; Dario Clifton DO; Laura Cleaning MD Signed SURGERY VISIT REPORT Observed: 07/07/2018 Status: F Source: [place] 9:20 AM [facility] REPOSITORY [facility] [address] [place] [address] OFFICE VISIT Date of Service: 07/06/18 MR#: [id number] Acct: [id number] Name: SANTIAGO SALGUERO Rep #: [id number] : 1995 Provider: Laura Cleaning MD Age/Sex: 23/F Location: [facility] Status: Signed Intake Intake Visit Reasons: f/u megan 06/27/18 Chief Complaint: ERCP [employer] Supervisor Required: No Is patient in pain?: Yes (abdomen) Allergies No Known Allergies Allergy (Verified 07/06/18 13:31) Medications buPROPion XL [Wellbutrin Xl] 300 mg PO DAILY 05/10/18 [History Confirmed 07/06/18] Escitalopram Oxalate [Lexapro] 5 mg PO DAILY 05/11/18 [History Confirmed 07/06/18] DiphenhydrAMINE [Benadryl] 25 mg PO TID PRN PRN #30 cap 05/13/18 [Rx Confirmed 07/06/18] Ferrous Sulfate [Iron] 325 mg PO BID #60 tab 05/13/18 [Rx Confirmed 07/06/18] Gauze Bandage [Bandage Roll] 1 ea TP .QDAILY #30 bandage 05/13/18 [Rx Confirmed 07/06/18] Silver/Hydrocolloid Dressing [Aquacel-Ag W-Hydrofiber Dress] 1 ea TP .QDAILY 30 Days #30 bandage 05/13/18 [Rx Confirmed 07/06/18] pantoprazole 40 mg tablet,delayed release 40 mg PO DAILY #30 tab 07/06/18 [Rx Confirmed 07/06/18] tramadol 50 mg tablet 50 mg PO Q8H PRN #20 tab 07/06/18 [Rx Confirmed 07/06/18] Subjective Details: Patient presents as follow-up of lap megan as well as ERCP for retained stone. Patient states that she still having some epigastric pain rated at 8/10 currently. She states she has nausea all day and some vomiting occasionally. She will have it as she is eating and just after. Patient had a CT abdomen pelvis when she represented to the ER with her retained stone which only showed postoperative fluid at the gallbladder fossa. Her recheck of her LFTs are improved her alkaline phosphatase is elevated at 177 and her ALT is 124 the rest are within normal limits, other improved from previous labs. Objective Details: Abdomen: Soft, nondistended, tender to palpation in the left upper quadrant and epigastric region Assessment AND Plan Problems 1. S/P laparoscopic cholecystectomy Z90.49 2. LUQ pain R10.12 3. Gastroesophageal reflux disease K21.9 Plan Patient's LFTs are improved, I do not believe her pain is due to to a complication from the surgery as the CT abdomen pelvis also only showed a small amount of fluid in the gallbladder fossa which is normal postoperatively. Patient states she only has the epigastric pain no right upper quadrant pain and she states she does have it as she is eating and just after. I do think this is more consistent with reflux or gastritis. Discussed with patient recommend her taking Protonix 40 mg daily to see if this helps improve her pain. If does not improve patient may need an EGD. Follow-up in 1-2 weeks. Laura Cleaning M.D. Pager: [phone] [facility] [address] [place] [address], [address] [place] [address] Office: [phone] Orders Orders: Medications New: Discontinued: diazepam (Valium) Discontinued Reason: Order Co5 mg PO 4X/DAY PRN 30 tabs 0RF spasms mpleted Plan Detail Follow Up 1-2 weeks Coding Level of Care Code Off vis,est,level 3 Diagnoses S/P laparoscopic cholecystectomy Z90.49 LUQ pain R10.12 Gastroesophageal reflux disease K21.9 07/07/18 0920 <Electronically signed by Laura Cleaning MD> Date Laura Cleaning MD Cosigner Signature: Date (if applicable) CC: LIVER PROFILE Collected: 07/04/2018 Status: F Source: [place] 10:53 AM [facility] REPOSITORY Order Comment: Reason for Laboratory Test elevated LFT TYPE CODE TESTS RESULT OUT OF RANGE REFERENCE UNITS LAB L501.1500 6.4-8.2 g/dL Normal T PROT 7.8 LAB L501.1800 3.2-5.0 g/dL Normal ALB 3.8 LAB L501.1950 2.2-4.2 g/dL Normal GLOB 4.0 LAB L501.4100 15-37 U/L Normal AST 37 LAB L501.4305 45-117 U/L High ALK P 177 LAB L501.4405 13-56 U/L High ALT 124 LAB L501.4600 0.20-1.00 mg/dL Normal T BILI 0.50 LAB L501.4700 0.00-0.30 mg/dL Normal D BILI 0.25 Performed By: #### L500.3400 #### [facility] [address] [facility] [place], [address] OPERATIVE REPORT - Observed: 06/29/2018 Status: F Source: [place] END[facility]COPY 4:14 PM [facility] REPOSITORY [facility] Medical Records Department [address] [place] [address] Operative Report - Endoscopy MR#: [id number] Acct: [id number] Name: SANTIAGO SALGUERO Rep #: [id number] : 1995 23 From: Kevin Negrete MD PCP: Dario Clifton DO Status: REG [facility] Patient Name: Santiago Salguero Procedure Date: 06/29/2018 3:25 PM Date of : 1995 Age: 23 Procedure: ERCP Indications: Suspected bile duct stone(s), Elevated liver enzymes Providers: Kevin Negrete MD Medicines: General Anesthesia Patient Profile: This is a 23 year old female. Refer to note in patient chart for documentation of history and physical. Complications: No immediate complications. Estimated blood loss: Minimal. Procedure: Pre-Anesthesia Assessment: - Prior to the procedure, a History and Physical was performed, and patient medications and allergies were reviewed. The patient's tolerance of previous anesthesia was also reviewed. The risks and benefits of the procedure and the sedation options and risks were discussed with the patient. All questions were answered, and informed consent was obtained. Prior Anticoagulants: The patient has taken no previous anticoagulant or antiplatelet agents. After reviewing the risks and benefits, the patient was deemed in satisfactory condition to undergo the procedure. After obtaining informed consent, the scope was passed under direct vision. Throughout the procedure, the patient's blood pressure, pulse, and oxygen saturations were monitored continuously. The [id number] s/n [id number] endoscope was introduced through the mouth, and advanced to the duodenum and used to inject contrast into the bile duct. The ERCP was accomplished without difficulty. The patient tolerated the procedure well. Scope In: 3:53:43 PM Scope Out: 4:00:56 PM Total Procedure Duration Time 0 hours 7 minutes 13 seconds Findings: A 0.035 inch x 260 cm straight Dreamwire was passed into the biliary tree. The short-nosed traction sphincterotome was passed over the guidewire and the bile duct was then deeply cannulated. Contrast was injected. I personally interpreted the bile duct images. There was brisk flow of contrast through the ducts. Image quality was adequate. Contrast extended to the hepatic ducts. The common bile duct was completely obstructed by what appeared to be a stone. Biliary sphincterotomy was made with a monofilament traction (standard) sphincterotome using ERBE electrocautery. There was no post-sphincterotomy bleeding. The biliary tree was swept with a 12 mm balloon starting at the bifurcation. One stone was removed. No stones remained. The endoscope was withdrawn from the patient. Impression: - Choledocholithiasis with an obstruction was found. Complete removal was accomplished by biliary sphincterotomy and balloon extraction. - A biliary sphincterotomy was performed. - The biliary tree was swept. Recommendation: - Advance diet as tolerated. - Continue present medications. - Observe patient's clinical course. Procedure Code(s): --- Professional --- 19155, Endoscopic retrograde cholangiopancreatography (ERCP); with removal of calculi/debris from biliary/pancreatic duct(s) Diagnosis Code(s): --- Professional --- K80.51, Calculus of bile duct without cholangitis or cholecystitis with obstruction R74.8, Abnormal levels of other serum enzymes CPT copyright 2017 [employer]. All rights reserved. The codes documented in this report are preliminary and upon utility mechanic supervisor review may be revised to meet current compliance requirements. Kevin Negrete MD 06/29/2018 4:13:45 PM This report has been signed electronically. Number of Addenda: 0 Note Initiated On: 06/29/2018 3:25 PM 06/29/18 1614 Date Kevin Negrete MD Cosigner Signature: Date (if indicated) CC: Kevin Negrete MD; Dario Clifton DO Date Dictated: 06/29/18 1525 Date Transcribed: Numerical Control Drill Press Operator: JACKSON Signed DISCHARGE INSTRUCTION Observed: 06/29/2018 Status: F Source: [place] 4:08 PM [facility] REPOSITORY [facility] Medical Records Department [address] [place] [address] Instructions for Home/Discharge Instructions 06/29/18 1607 MR#: [id number] Acct: [id number] Name: SANTIAGO SALGUERO Rep #: [id number] : 1995 23 From: Kevin Negrete MD PCP: Dario Clifton DO Status: REG [facility] Discharge Diet: Light diet - advance as tolerated Discharge Activity: Return to Normal Activity May shower in (days): 1 - with the bandage in place. Additional Activity Instructions:: Pain medication may cause nausea. You should typically eat light foods as you take your pain medications. Pain medication may also cause constipation. If this is a problem for you, please discuss with your doctor. Call your doctor if your incision/area has: Continuous Slow Oozing, Sudden Increased Bleeding, Increased Pain/ Swelling, Increased Redness, Foul Smelling Discharge, Fever of 101 or Higher Call your doctor if you observe: Fever of 101 or Higher Suture Line Care: Avoid Pulling/Pushing, Avoid Pinching/Bending Additional Dressing/Incision Instructions:: Leave operative bandaids on for 2 days. When you remove dressing, leave Steri-Strips on until your follow-up appointment, or until the Steri-Strips fall off on their own. Allergies/Adverse Reactions: Allergies No Known Allergies Allergy (Verified 06/29/18 09:22) Medications to take at Discharge diazepam 5 mg tablet 5 mg PO 4X/DAY PRN #30 tab 05/09/18 buPROPion XL [Wellbutrin Xl] 300 mg PO DAILY 05/10/18 Escitalopram Oxalate [Lexapro] 5 mg PO DAILY 05/11/18 DiphenhydrAMINE [Benadryl] 25 mg PO TID PRN PRN #30 cap 05/13/18 Ferrous Sulfate [Iron] 325 mg PO BID #60 tab 05/13/18 Gauze Bandage [Bandage Roll] 1 ea TP .QDAILY #30 bandage 05/13/18 Oxycodone HCl/Acetaminophen [Percocet 5-325] 1 - 2 tab PO 4X/DAY PRN PRN 7 Days #40 tab 05/13/18 Silver/Hydrocolloid Dressing [Aquacel-Ag W-Hydrofiber Dress] 1 ea TP .QDAILY 30 Days #30 bandage 05/13/18 Primary Care Physician: Dario Poe DO [Primary Care Provider] - Test Results: Test results from this visit will be discussed in further detail at your follow-up appointment, if applicable. Please Follow Up With: Laura Cleaning MD When: as scheduled 06/29/18 1608 <Electronically signed by Kevin Negrete MD> Date Kevin Negrete MD CC: Dario Clifton DO HISTORY AND PHYSICAL Observed: 06/29/2018 Status: F Source: [place] EXAM 4:05 PM [facility] REPOSITORY [facility] Medical Records Department [address] [place] [address] History and Physical 06/29/18 1251 MR#: [id number] Acct: [id number] Name: SANTIAGO SALGUERO Rep #: [id number] : 1995 23 From: Caity Sow PA-C PCP: Dario Clifton DO Status: REG SD Y Location: [facility] [id number] ADDENDUM by Kevin Negrete MD on 06/29/18 at 1605 Code Visit I did independently evaluate the patient and I discussed ERCP and stone removal with her. I discussed the risks of the procedure including but not limited to bleeding, infection, perforation of the bile duct or bowels, pancreatitis. The patient understands all the risks and is willing to proceed with surgery. I will admit the patient after surgery and discharge her home in the morning if she is feeling well and tolerating a diet. Kevin Negrete MD Pager: [facility] [address] [place] [address] [address] [place] [address] Office: 06/29/18 [phone] <Electronically signed by Kevin Negrete MD> Date Kevin Negrete MD cc: Caity Sow PA-C; Kevin Negrete MD; Dario Clifton DO * Signed Problem List (1) Abdominal pain Status: Acute (2) Elevated liver enzymes Status: Acute (3) Choledocholithiasis Status: Acute History of Present Illness Date of Admission: 06/29/18 Chief Complaint: Abdominal pain, elevated liver enzymes. S/p cholecystectomy The patient is a 23 year old F who presents post-op day # 2 from a laparoscopic cholecystectomy. Patient notes discomfort prior to discharge, however the pain worsened over night and included nausea and vomiting. Patient's previous history per my last admission note on 06/27: The patient is a 23 year old F who presents with a 2 day history of epigastric pain, nausea, vomiting. Patient states she is unsure what brought this pain on. Patient does not associate this pain with food however she has not paid too much attention to her diet. Patient stated she has had a dull pain/discomfort which has woken her up from sleep at night for the last several months. She did not relate this discomfort to anything specific. She notes stress within her life with her 3 children. She notes constipation more lately. She denies change in color of stool. 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 She has had previous surgery per Dr. Morris in February twice. 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 She is currently being seen by the wound center weekly for debridement and dressing changes. She had to have a PICC line placed for IV antibiotics. This was discontinued at the beginning of April. She noted finding out she had an allergy to Vanco throughout all of this. Patient notes abdominal surgeries include tubal ligation and appy. She has delivered 3 children vaginally without any complications. She has also had a anne-marie placed in her back. Patient denies previous history of gallbladder disease. She denies smoking and alcohol use. She denies previous myocardial infarction, stroke and blood clots. She denies previously being seen by cardiology. CT scan was obtained and demonstrated Small left pleural effusion. Status post laparoscopic cholecystectomy with a small amount of fluid in the gallbladder fossa most likely postoperative in nature. Changes seen in the region of the umbilicus and right anterior abdominal wall in keeping with the recent surgery. Small amount of free fluid in the pelvis and right hemipelvis. 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) BMI 38.0-38.9,adult (Chronic) Depression (Chronic) Medical History: Medical History (Last Reviewed 06/29/18 @ 13:41 by Caity Sow PA-C) Anxiety and depression F41.9, F32.9 Back problem M53.9 Gallstones K80.20 Kidney stones N20.0 Allergies No Known Allergies Allergy (Verified 06/29/18 09:22) Home Medications: Ambulatory Orders Medication Instructions Recorded diazepam 5 mg tablet 5 mg PO 4X/DAY PRN #30 tab 05/09/18 buPROPion XL [Wellbutrin Xl] 300 mg PO DAILY 05/10/18 Surgical History: Surgical History (Last Reviewed 06/29/18 @ 13:41 by Caity Sow PA-C) History of appendectomy Z90.49 History of back surgery Z98.890 2006 History of tubal ligation Z98.51 Surgical History: appendectomy, - - Tubal ligation, back surgery for scoliosis Psychiatric History: No pertinent psych hx GUEST RELATIONS RECEPTIONIST History: No pertinent GUEST RELATIONS RECEPTIONIST history Smoking Status: Unknown if ever smoked - *Family History Maternal Family History: Family History (Last Reviewed 06/29/18 @ 13:41 by Caity Sow PA-C) Mother Diabetes Hypertension Father Hypertension Grandmother Diabetes History Items: No pertinent history Paternal Family History: Family History (Last Reviewed 06/29/18 @ 13:41 by Caity Sow PA-C) Mother Diabetes Hypertension Father Hypertension Grandmother Diabetes History Items: No pertinent history Review of Systems Constitutional: Reports: Anorexia HEENT: Denies: Head Aches, Sinus Congestion, Sinus Drainage Cardiovascular: Denies: Chest Pain, Palpitations Respiratory: Denies: Cough, Shortness of breath at rest, Sputum production Gastrointestinal: Reports: Abdominal Pain, Nausea, Vomiting Genitourinary: Denies: Dysuria Musculoskeletal: Denies: Joint Pain, Joint Tenderness Skin: Denies: Rash, Wounds Neurological: Denies: Numbness, Tingling, Focal weakness Psychiatric: Denies: Anxiety, Depression, Homicidal Ideations, Suicidal Ideations Hematologic/ Lymphatic: Denies: Easy Bruising, Easy Bleeding VTE Information - Inpt Only VTE Present on Admission: Yes Patient Problems: Active and Suspected Problems (Last Reviewed 06/27/18 @ 11:21 by Caity Sow PA-C) Abdominal pain (Acute) Elevated liver enzymes (Acute) Choledocholithiasis (Acute) - Physical Exam General: Alert, Oriented x3, Cooperative HEENT: Atraumatic, PERRLA, EOMI, Normocephalic Neck: Supple, No JVD, Negative Carotid Bruits Lungs: Clear to auscultation, Normal air movement Cardiovascular: Regular rate, No murmurs Abdomen: Hypoactive Bowel Sounds, Obese, Tender - RUQ/epigastric Extremities: No edema, Capillary Refill Less than 3 Seconds Skin: No rashes, No breakdown Musculoskeletal: No Tenderness to Palpation of Joints or Extremities Neurological: Neuro grossly intact Psych/Mental Status: Normal Affect, Appropriate Vital Signs Temp Pulse Resp BP Pulse Ox 97.6 F L 56 L 16 124/80 H 99 06/29/18 09:19 06/29/18 10:29 06/29/18 10:29 06/29/18 10:29 06/29/18 10:29 Oxygen Delivery Method Room Air Weight: 225 lb Body Mass Index (BMI) 36.3 Laboratory Tests Past 24 Hrs WBC 6.9 RBC 4.65 Hgb 11.9 L Hct 38.6 MCV 83.0 MCH 25.6 L Assessment/Plan All Active Problems (Last Reviewed 06/27/18 @ 11:21 by Caity Sow PA-C) Right upper quadrant abdominal pain (Acute) Acute cholecystitis (Acute) Abdominal pain (Acute) Elevated liver enzymes (Acute) Choledocholithiasis (Acute) Drug induced fever (Acute) Pancytopenia with fever (Acute) Pancytopenia (Acute) Iron deficiency anemia (Acute) Pseudomonas aeruginosa infection (Acute) Open wound of right chest wall with complication (Acute) Cellulitis of right breast (Acute) Cellulitis of chest wall (Acute) Abscess of chest wall (Acute) Cellulitis and abscess of other specified site (Acute) MRSA (methicillin resistant Staphylococcus aureus) infection (Acute) Abscess of right breast (Ruled-out) Acute pyelonephritis (Resolved) I am seeing this patient in conjunction with Dr. Negrete Impression: Choledocholithiasis. Elevated liver enzymes. Plan: Patient was discussed with Dr. Negrete. Dr. Negrete will plan to perform an Endoscopic retrograde cholangiopancreatography under general anesthesia. Procedure details, risks and benefits have been explained to the patient. Patient has had the opportunity to ask and have questions answered. Patient will remain NPO. Procedure will be performed today. Patient will be admitted for observation and possibly discharged tomorrow. Patient's fiance would like to be contacted after the procedure is completed. His cell number is [phone]. Thank you for allowing me to participate in this patient's care. Code Visit Office Visits / Consults: 10219 IP Consult L2 06/29/18 1359 <Electronically signed by Caity Sow PA-C> Date Caity Sow PA-C Cosigner Signature: Date (if applicable) CC: Caity Sow PA-C; Kevin Negrete MD; Dario Clifton DO Signed ERCP BILIARY ONLY Observed: 06/29/2018 Status: F Source: [place] 2:06 PM [facility] REPOSITORY [facility] Imaging Services [address] [place] [address] ERCP Biliary Only MR#: [id number] Acct: [id number] Name: SANTIAGO SALGUERO Rep #: [id number] : 1995 F 23 From: Gideon Thorne MD PCP: Dario Clifton DO Status: DIS [place] Study: ERCP Biliary Only Date of Exam: 06/29/18 Exam# [id number] Ordering Dr: Kevin Negrete MD STUDY: ERCP. REASON FOR EXAM: Female, 23 years old. The patient is status post laparoscopic cholecystectomy. FLUOROSCOPY TIME (if supplied): (92.8 seconds) minutes/seconds TECHNIQUE: An ERCP was performed by the surgeon. There is visualization of the common bile duct. COMPARISON: None. FINDINGS: The central intrahepatic biliary ducts are unremarkable. Questionable tiny filling defect in the distal portion of the common bile duct. A small amount of contrast is seen within the second portion of the duodenum. RAD/ERCP Biliary Only IMPRESSION: Questionable tiny filling defect in the distal portion of the common bile duct although contrast is seen within the duodenum. Electronically Signed: Gideon Thorne MD at 7:58 EST Tel [phone], Service support , CC: Kevin Negrete MD; Dario Clifton DO Numerical Control Drill Press Operator: Signed EMERGENCY DEPARTMENT Observed: 06/29/2018 Status: F Source: [place] SUMMARY 1:43 PM [facility] REPOSITORY [facility] Medical Records Department [address] [place] [address] Emergency Department Summary 06/29/18 1341 MR#: [id number] Acct: [id number] Name: SANTIAGO SALGUERO Rep #: [id number] : 1995 23 From: Teddy Dow MD PCP: Dario Clifton DO Status: REG ER - ER Visit Summary Date of Service: 06/29/18 Chief Complaint: Abdominal pain History of Present Illness: The patient is a 23 F discharged from the hospital yesterday after cholecystectomy presenting with recurrent right upper quadrant abdominal pain, nausea, and vomiting. No fever. Physical Examination: She has tenderness in the right upper quadrant but no rebound or guarding. She appears uncomfortable. Mucous members are dry. Test Results: White blood cell count is normal but her liver enzymes are markedly elevated raising the concern for a retained gallstone. Emergency Department Course and Treatment: An IV Zosyn and fluids as well as morphine and Zofran. I discussed the case with her surgeon. Is then evaluated by surgery in the emergency department and arrangements were made to take her back to the operating room for an ERCP at 230 today. She will then be admitted to the surgical service. Treatment Plan: Admit to surgery Disposition: Admit to surgery Impression: Initial encounter choledocholithiasis after cholecystectomy This note was generated with [employer] dictation software. It may contain incorrect words, spelling, and punctuation that were not noted in review of the chart prior to signing ED Disposition - Plan for ED Patient: Chief Complaint: Nausea/Vomiting Referrals: Dario oPe DO [Primary Care Provider] - What to do if you have Problems For any increased pain, shortness of breath, bleeding, nausea or vomiting, chest pain, or any unexpected problems, contact your Primary Care Provider. Call [facility] ([phone]) or report to the closest Emergency Room. Call 911 if necessary. 06/29/18 1343 <Electronically signed by Teddy Dow MD> Date Teddy Dow MD Cosigner Signature (If Indicated): Date CC: Dario Clifton DO ABDOMEN/PELVIS W IV CONT Observed: 06/29/2018 Status: F Source: [place] 9:42 AM [facility] REPOSITORY [facility] Imaging Services [address] [place] [address] Abdomen/Pelvis W IV Cont ONLY MR#: [id number] Acct: [id number] Name: SANTIAGO SALGUERO Rep #: [id number] : 1995 F 23 From: Gideon Thorne MD PCP: Dario Clifton DO Status: REG ER Study: Abdomen/Pelvis W IV Cont ONLY Date of Exam: 06/29/18 Exam# [id number] Ordering Dr: Teddy Dow MD STUDY: CT ABDOMEN AND PELVIS WITH CONTRAST REASON FOR EXAM: Female, 23 years old. Abdominal pain. Recent cholecystectomy. Vomiting. RADIATION DOSAGE (If Supplied By Facility): CTDIvol = ( 15.97 ) mGy, DLP = ( 1564.00 ) mGycm TECHNIQUE: Transaxial images were obtained from the dome of the diaphragm to the symphysis pubis without oral contrast. 100mL ml of Isovue 300 contrast was administered. Sagittal and coronal images were reconstructed. Individualized dose optimization techniques were used for this CT. COMPARISON: Comparison is made with prior study dated July 14, 2017. FINDINGS: Small left pleural effusion with mild left basilar atelectasis. The visualized portions of the heart are within normal limits. There is decreased attenuation of the liver consistent with steatosis. The patient is status post cholecystectomy on June 27, 2018. Small fluid collection is seen in the gallbladder fossa. This most likely represents postoperative changes. Is also evidence of a tiny amount of free air in the anterior aspect of the liver and in the left upper quadrant in keeping with the recent laparoscopic surgery. Normal spleen. Normal pancreas. Normal bilateral adrenal glands. Normal right kidney. Normal left kidney. Normal visualized stomach. Normal small intestine. Moderate amount of fecal material is seen in the colon. There are surgical clips in the region of the appendix consistent with a prior appendectomy. Normal abdominal aorta. Normal inferior vena cava. Normal retroperitoneum. Normal urinary bladder. Small amount of free fluid is seen in the pelvis. Small amount of free fluid also seen in the right pelvis. Postsurgical changes are seen in the region of the umbilicus in keeping with the recent laparoscopic cholecystectomy. A small amount of air is also seen in the right anterior abdominal wall in keeping with the recent cholecystectomy. Levoscoliosis. There is evidence of prior fusion in the lower thoracic and upper lumbar spine. CT/Abdomen/Pelvis W IV Cont ONLY IMPRESSION: Small left pleural effusion. Status post laparoscopic cholecystectomy with a small amount of fluid in the gallbladder fossa most likely postoperative in nature. Changes seen in the region of the umbilicus and right anterior abdominal wall in keeping with the recent surgery. Small amount of free fluid in the pelvis and right hemipelvis. Electronically Signed: Gideon Thorne MD at 12:29 EST Tel [phone], Service support , CC: Kale Dow MD; Dario Clifton DO Numerical Control Drill Press Operator: Signed CBC W/DIFF, AUTOMATED Collected: 06/29/2018 Status: F Source: [place] 9:41 AM [facility] REPOSITORY TYPE CODE TESTS RESULT OUT OF RANGE REFERENCE UNITS LAB L100.1000 4.4-11.0 K/mm3 Normal WBC 6.9 LAB L100.1200 4.2-5.4 M/mm3 Normal RBC 4.65 LAB L100.1300 12.0-15.0 g/dl Low HGB 11.9 LAB L100.1400 37-47 % Normal HCT 38.6 LAB L100.1500 81-99 fL Normal MCV 83.0 LAB L100.1600 27.0-32.0 pg Low MCH 25.6 LAB L100.1700 32-36 g/gl Low MCHC 30.8 LAB L100.1810 11.6-14.6 % High RDW CV 15.3 LAB L100.1820 35.1-43.9 fl High RDW SD 46.6 LAB L100.1900 150-450 K/mm3 Normal PLT 229 LAB L100.2000 6.2-12.0 fl Normal MPV 10.7 LAB L100.2100 47-70 % High NEUT% 76.7 LAB L100.2200 19-41 % Low LY% 14.7 LAB L100.2300 0-10 % Normal MONO% 7.9 LAB L100.2400 0-5 % Normal EO% 0.3 LAB L100.2500 0-1 % Normal BASO% 0.1 LAB L100.2550 0.0-0.9 % Normal IM GRAN % 0.300 Result Comment: IG% - Immature Granulocytes (promyelocytes, myelocytes and metamyelocytes) > 1% indicates that a LEFT SHIFT is Present. LAB L100.2620 2.0-7.7 X10 3/uL Normal Absolute Neut 5.3 LAB L100.2720 0.83-4.51 X10 3/ul Normal Absolute Lymph 1.01 Performed By: #### L100.0100 #### [facility] [address] [place], [address] BASIC METABOLIC Collected: 06/29/2018 Status: F Source: [place] PROFILE ([facility]) 9:41 AM [facility] REPOSITORY TYPE CODE TESTS RESULT OUT OF RANGE REFERENCE UNITS LAB L501.0100 74-106 mg/dL Normal GLU 101 Result Comment: Fasting Glucose result from 100 to 125 mg/dL suggests IMPAIRED HOMEOSTASIS per A.D.A. criteria. Please note revised GLUCOSE reference range effective 2017. LAB L501.1000 7-18 mg/dL Low BUN 2 LAB L501.1100 0.55-1.02 mg/dL Normal CREAT,SERUM 0.67 Result Comment: The validity of the calculated GFR AND GFRAA in patients over 70 years has not been determined. Clinical correlation is essential. LAB L501.1110 >60 mL/min Normal EST GFR 113 Result Comment: Non- GFR Calc LAB L501.1115 >60 mL/min Normal EST GFR - AA 137 Result Comment: GFR Calc LAB L501.1255 ml/min Normal Estimated CRCL 120.16 LAB L501.1300 10-20 RATIO Low BUN/CRE 3.0 LAB L501.2200 8.5-10 mg/dL .1 CA Normal 9.0 LAB L501.5300 136-14 mmol/L 5 NA Normal 139 LAB L501.5600 3.5-5. mmol/L 1 K Normal 3.5 LAB L501.5900 98-107 mmol/L CL Normal 102 LAB L501.6100 21.0-3 mmol/L 2.0 CO2 Normal 29.0 LAB L501.6200 5-15 GAP Normal 8 Performed By: #### L500.2500, L500.3400, L501.2450 #### [facility] [address] [place], [place], [id number] LIVER PROFILE Collected: 06/29/2018 Status: F Source: [place] 9:41 AM [facility] REPOSITORY TYPE CODE TESTS RESULT OUT OF RANGE REFERENCE UNITS LAB L501.1500 6.4-8.2 g/dL Normal T PROT 7.7 LAB L501.1800 3.2-5.0 g/dL Normal ALB 3.7 LAB L501.1950 2.2-4.2 g/dL Normal GLOB 4.0 LAB L501.4100 15-37 U/L High AST 338 LAB L501.4305 45-117 U/L High ALK P 289 LAB L501.4405 13-56 U/L High ALT 446 LAB L501.4600 0.20-1.00 mg/dL High T BILI 2.60 LAB L501.4700 0.00-0.30 mg/dL High D BILI 2.05 Performed By: #### L500.2500, L500.3400, L501.2450 #### [facility] [address] [place], [place], [id number] LIPASE Collected: 06/29/2018 Status: F Source: [place] 9:41 AM [facility] REPOSITORY TYPE CODE TESTS RESULT OUT OF RANGE REFERENCE UNITS LAB L501.2450 73-393 U/L Normal LIPASE 81 Performed By: #### L500.2500, L500.3400, L501.2450 #### [facility] [address] [place], [place], [id number] EMERGENCY DEPARTMENT Observed: 06/28/2018 Status: F Source: [place] SUMMARY 3:50 PM [facility] REPOSITORY [facility] Medical Records Department [address] [place] [address] Emergency Department Summary 06/27/18 0345 MR#: [id number] Acct: [id number] Name: SANTIAGO SALGUERO Rep #: [id number] : 1995 23 From: Nishant Rome PCP: Dario Clifton DO Status: DIS ROCKY - ER Visit Summary Date of Service: 06/27/18 Chief Complaint: Abdominal pain, nausea vomiting History of Present Illness: The patient is a 23 F 2-day history of epigastric abdominal pain nausea and vomiting. States too many to count. No diarrhea. Normal bowel movement yesterday. No melena. Subjective fever, chills, sweats. States she has pain with urination. Bilateral tubal ligation. History of appendectomy. Patient is recovering from right chest wall wound followed by Dr. Morris. No current antibiotics. Physical Examination: General: Alert and oriented 3, no acute distress HEENT: Normocephalic, atraumatic. Moist mucosa membranes Neck: supple, nontender. Cardiovascular: Regular rate and rhythm, no murmurs Respiratory: Normal breath sounds, symmetric, no distress Abdomen: Soft, nondistended, tender palpation epigastric greater than right upper quadrant. No rebound or guarding. Extremities: Nontender, no edema, pulses intact 4 Neuro: no focal neurological deficits. Test Results: WBC 5.9 hemoglobin 12.1. Platelets 227. Creatinine 0.67. Potassium 3.6. Lipase 176. LFTs: Total bili 0.4, direct bili 0.2. Alk phos 152, ALT 132, AST 263. HCG negative. Abdominal series: right lower lobe infiltrate per radiology, no acute abdominal process. Right upper quadrant ultrasound pending. UA negative. Emergency Department Course and Treatment: Patient vital signs stable, pain epigastric mild right upper quadrant. Abdominal series negative for acute abdominal process reported potential pneumonia right lower lobe, patient no significant cough. Afebrile. White count normal. Labs however did note slightly elevated liver enzymes, lipase is normal. Initially treated with morphine, Zofran, Protonix reported no relief. I performed a bedside ultrasound, sonogram Ken's sign, there was concerns of sludge in the gallbladder, did not appreciate any thickening or free fluid. Attempted GI cocktail, reports no relief. Patient treated additional Dilaudid IV at 0530. With elevated liver enzymes, will obtain gallbladder ultrasound for formal evaluation with a.m. arrival. Patient will be signed out to morning physician to follow-up. Treatment Plan: [] Disposition: Pending Impression: 1. Abdominal pain 2. Nausea and vomiting This note was generated with [employer] software. It may contain incorrect words, spelling, and punctuation that were not noted in review of the chart prior to signing <Nishant Marin Filed: 06/27/18 07:27> - ER Visit Summary Date of Service: 06/27/18 Patient was endorsed to me by the outgoing physician. Patient's gallbladder ultrasound shows a positive sonographic Ken's with gallstones. Patient continues to have intractable right upper quadrant pain. In the setting of her gallstones, the locale of her pain, and her transaminitis this seems consistent with potential cholecystitis. I contacted Dr. Cleaning, who will see the patient for definitive surgical management This note was generated with [employer] software. It may contain incorrect words, spelling, and punctuation that were not noted in review of the chart prior to signing <Jackson Leslie - Jose Alfredo Filed: 06/27/18 09:36> ED Disposition <Nishant Marin Filed: 06/27/18 07:27> <Jackson Leslie Filed: 06/27/18 09:36> - Plan for ED Patient: Chief Complaint: Abd Pain Referrals: Dario Poe, [Primary Care Provider] - What to do if you have Problems For any increased pain, shortness of breath, bleeding, nausea or vomiting, chest pain, or any unexpected problems, contact your Primary Care Provider. Call [facility] ([phone]) or report to the closest Emergency Room. Call 911 if necessary. 06/28/18 1550 <Electronically signed by Nishant Rome> Date Nishant Rome 06/27/18 1554<Electronically signed by Jackson Leslie MD> Cosigner Signature (If Indicated): Date Jackson Leslie MD CC: Dario Clifton DO OPERATIVE REPORT Observed: 06/28/2018 Status: F Source: [place] 8:27 AM [facility] REPOSITORY [facility] Medical Records Department [address] [place] [address] Operative Report 06/27/18 1715 MR#: [id number] Acct: [id number] Name: SANTIAGO SALGUERO Rep #: [id number] : 1995 23 From: Laura Cleaning MD PCP: Dario Clifton DO Status: ADM ROCKY Y Location: [place] [id number] ADDENDUM by Laura Cleaning MD on 06/28/18 at 0827 Code Visit Addition after the initial incision supraumbilical trocar site. Unable to easily get in initially at the supraumbilical incision site at the site of the previous hernia, right upper quadrant Visiport technique was used. A 5 mm camera was placed in the trocar and entry to abdomen was visually confirmed through the fat, fascia, muscle, and peritoneum. Trocar was removed and no injury was noted at the site of entry. Once the 5 mm right upper quadrant port was able to be placed we are able to safely proceed through the peritoneum of the supraumbilical incision and placed the Abdirahman trocar. 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 Laparoscopic cholecystectomy was elected. Description procedure: The patient was placed on operating table in supine position. General Anesthesia was induced. A timeout was completed verifying correct patient, procedure, site, position, social, and special equipment prior to beginning procedure. An orogastric tube was placed. The abdomen was prepped and draped in usual sterile fashion. An incision was made in the natural skin line above the umbilicus at previous ventral hernia seen on CT. The fascia was elevated and incised. The peritoneum was elevated and incised. Entry into the peritoneum was confirmed visually and no bowel was noted in the vicinity of the incision. Rock trocar was placed. The abdomen was insufflated with carbon dioxide to a pressure of 12-15 mmHg. Patient tolerated insufflation well. The laparoscope was then inserted and abdomen inspected. No injuries from initial trocar placement were noted. Additional trochars were then inserted in the following locations 5 mm trocar in the epigastrium and 2 more 5 mm trochars along the right costal margin. The abdomen was inspected no abnormalities were found. The table is placed in reverse Trendelenburg position with the right side up. The adhesions between the gallbladder and omentum were lysed sharply. The dome of the gallbladder was grasped with atraumatic grasper passed through the lateral port and retracted over the dome of the liver. Infundibulum was then grasped with atraumatic grasper through the midclavicular port and retracted to the right lower quadrant. This maneuver exposed Calot's triangle. Minor catheter was used for cholangiograms. Able to see the cystic duct clearly going to the common bile duct however the rest of the biliary tree was low more difficult to see due to the patient's previous surgeries for scoliosis and her rods in her back. There are couple images question whether there is a filling defect in the distal bile duct. The peritoneum overlying the gallbladder infundibulum was then incised and cystic duct and artery identified and circumferentially dissected. The cystic duct and artery were then doubly clipped and divided close to the gallbladder. The gallbladder then dissected from its peritoneal attachments by electrocautery. Hemostasis was checked and the gallbladder and contained stones were removed using the endoscopic retrieval bag through the umbilical port. The gallbladder is passed off table as specimen. The gallbladder fossa was copiously irrigated with saline and hemostasis obtained. There is no evidence of bleeding from the gallbladder fossa or cystic artery leakage of bile from the cystic duct stump. Secondary trochars removed under direct vision. No bleeding was noted the trocar sites. The laparoscope was withdrawn and umbilical trocar removed. The abdomen was allowed to collapse. The fascia of the 12 mm trocar was closed with a [id number] 0 PDS suture x2 at the location of patient's previous ventral hernia. The skin was closed with sutures of 4-0 Monocryl and Steri-Strips. The orogastric tube was removed and the patient was extubated. The patient tolerated procedure well and was taken to the postanesthesia care unit in stable condition. - Complications None - Admit VTE Documentation VTE Present on Admission: Yes VTE Mechan Device Prophylaxis: SCD's 06/27/18 1720 <Electronically signed by Laura Cleaning MD> Date Laura Cleaning MD CC: Dario Clifton DO; Laura Cleaning MD Signed DISCHARGE INSTRUCTION Observed: 06/28/2018 Status: F Source: [place] 8:21 AM [facility] REPOSITORY [facility] Medical Records Department [address] [place] [address] Instructions for Home/Discharge Instructions 06/28/18817 MR#: [id number] Acct: [id number] Name: SANTIAGO SALGUERO Rep #: [id number] : 1995 From: Laura Cleaning MD PCP: Dario Clifton DO Status: ADM ROCKY Discharge Diet: Light diet - advance as tolerated Discharge Activity: May not drive while taking narcotic pain medications. May shower in (days): 1 Lifting Restrictions: no lifting > 20 lb for 4 weeks Call your doctor if your incision/area has: Continuous Slow Oozing, Sudden Increased Bleeding, Increased Pain/ Swelling, Increased Redness, Foul Smelling Discharge, Swelling at the incision site Call your doctor if you observe: Fever of 101 or Higher Remove Dressing in (days):: 1 Additional Instructions: Will get repeat Liver function test about 7-10 days after surgery. Order is placed, just go to the lab to have them drawn at least 1 week after surgery, 07/05 or after Allergies/Adverse Reactions: Allergies No Known Allergies Allergy (Verified 05/10/18 16:31) Medications to take at Discharge diazepam 5 mg tablet 5 mg PO 4X/DAY PRN #30 tab 05/09/18 buPROPion XL [Wellbutrin Xl] 300 mg PO DAILY 05/10/18 Escitalopram Oxalate [Lexapro] 5 mg PO DAILY 05/11/18 DiphenhydrAMINE [Benadryl] 25 mg PO TID PRN PRN #30 cap 05/13/18 Ferrous Sulfate [Iron] 325 mg PO BID #60 tab 05/13/18 Gauze Bandage [Bandage Roll] 1 ea TP .QDAILY #30 bandage 05/13/18 Oxycodone HCl/Acetaminophen [Percocet 5-325] 1 - 2 tab PO 4X/DAY PRN PRN 7 Days #40 tab 05/13/18 Silver/Hydrocolloid Dressing [Aquacel-Ag W-Hydrofiber Dress] 1 ea TP .QDAILY 30 Days #30 bandage 05/13/18 Oxycodone HCl/Acetaminophen [Percocet 5/325] 1 - 2 tablet PO Q6H PRN PRN 5 Days #25 tablet 06/28/18 The following prescriptions were given: Oxycodone HCl/Acetaminophen [Percocet 5/325] 1 - 2 tablet PO Q6H PRN PRN 5 Days #25 tablet PRN Reason: Pain Primary Care Physician: Dario Poe DO [Primary Care Provider] - Test Results: Test results from this visit will be discussed in further detail at your follow-up appointment, if applicable. Please Follow Up With: Laura Cleaning MD When: call for appt in 7-10 days Proposed Discharge Date: 06/28/18 06/28/18820 <Electronically signed by Laura Cleaning MD> Date Laura Cleaning MD CC: Dario Clifton DO CBC W/DIFF, AUTOMATED Collected: 06/28/2018 Status: F Source: [place] 5:40 AM [facility] REPOSITORY TYPE CODE TESTS RESULT OUT OF RANGE REFERENCE UNITS LAB L100.1000 4.4-11.0 K/mm3 Normal WBC 8.5 LAB L100.1200 4.2-5.4 M/mm3 Normal RBC 4.47 LAB L100.1300 12.0-15.0 g/dl Low HGB 11.6 LAB L100.1400 37-47 % Low HCT 36.6 LAB L100.1500 81-99 fL Normal MCV 81.9 LAB L100.1600 27.0-32.0 pg Low MCH 26.0 LAB L100.1700 32-36 g/gl Low MCHC 31.7 LAB L100.1810 11.6-14.6 % High RDW CV 14.9 LAB L100.1820 35.1-43.9 fl High RDW SD 44.3 LAB L100.1900 150-450 K/mm3 Normal PLT 242 LAB L100.2000 6.2-12.0 fl Normal MPV 11.7 LAB L100.2100 47-70 % High NEUT% 83.2 LAB L100.2200 19-41 % Low LY% 10.4 LAB L100.2300 0-10 % Normal MONO% 6.2 LAB L100.2400 0-5 % Normal EO% 0.0 LAB L100.2500 0-1 % Normal BASO% 0.1 LAB L100.2550 0.0-0.9 % Normal IM GRAN % 0.100 Result Comment: IG% - Immature Granulocytes (promyelocytes, myelocytes and metamyelocytes) > 1% indicates that a LEFT SHIFT is Present. LAB L100.2620 2.0-7.7 X10 3/uL Normal Absolute Neut 7.1 LAB L100.2720 0.83-4.51 X10 3/ul Normal Absolute Lymph 0.88 Performed By: #### L100.0100 #### [facility] [address] [place], [place], [id number] COMPREHENSIVE METABOLIC Collected: 06/28/2018 Status: F Source: [place] [facility] 5:40 AM [facility] REPOSITORY TYPE CODE TESTS RESULT OUT OF RANGE REFERENCE UNITS LAB L501.0100 74-106 mg/dL High GLU 107 Result Comment: Fasting Glucose result from 100 to 125 mg/dL suggests IMPAIRED HOMEOSTASIS per A.D.A. criteria. Please note revised GLUCOSE reference range effective 2017. LAB L501.1000 7-18 mg/dL Low BUN 3 LAB L501.1100 0.55-1.02 mg/dL Normal CREAT,SERUM 0.74 Result Comment: The validity of the calculated GFR AND GFRAA in patients over 70 years has not been determined. Clinical correlation is essential. LAB L501.1110 >60 mL/min Normal EST GFR 101 Result Comment: Non- GFR Calc LAB L501.1115 >60 mL/min Normal EST GFR - AA 123 Result Comment: GFR Calc LAB L501.1255 ml/min Normal Estimated CRCL 108.79 LAB L501.1300 10-20 RATIO Low BUN/CRE 4.0 LAB L501.1500 6.4-8. g/dL 2 T PROT Normal 7.1 LAB L501.1800 3.2-5. g/dL 0 ALB Normal 3.6 LAB L501.1950 2.2-4. g/dL 2 GLOB Normal 3.5 LAB L501.2000 0.9-2. RATIO 4 A/G Normal 1.0 LAB L501.2200 8.5-10 mg/dL .1 CA Normal 8.6 LAB L501.4100 15-37 U/L High AST 381 LAB L501.4305 45-117 U/L High ALK P 194 LAB L501.4405 13-56 U/L High ALT 286 LAB L501.4600 0.20-1 mg/dL .00 T BILI Normal 0.90 LAB L501.5300 136-14 mmol/L 5 NA Normal 142 LAB L501.5600 3.5-5. mmol/L 1 K Normal 3.9 LAB L501.5900 98-107 mmol/L High CL 109 LAB L501.6100 21.0-3 mmol/L 2.0 CO2 Normal 22.0 LAB L501.6200 5-15 GAP Normal 11 Performed By: #### L500.4050 #### [facility] [address] [place], [address] CHOLANGIOGRAM/ O Observed: 06/27/2018 Status: F Source: [place],INITIAL 12:56 PM [facility] REPOSITORY [facility] Imaging Services [address] [address] Cholangiogram/ O R,Initial MR#: [id number] Acct: [id number] Name: SANTIAGO SALGUERO Rep #: [id number] : 1995 F 23 From: Giuliano Miranda MD PCP: Dario Clifton DO Status: DIS ROCKY Study: Cholangiogram/ O R,Initial Date of Exam: 06/27/18 Exam# [id number] Ordering Dr: Laura Cleaning MD ADDENDUM by Anurag Miranda on 07/18/18 at 1921 ADDENDUM CORRECTION: TECHNIQUE: Real-time fluoroscopy was provided during intraoperative contrast infusion via the cystic duct. 2 intraoperative fluoroscopic spot films are submitted. Electronically Signed: Anurag Miranda MD at 19:22 EST , Service support , 07/18/181921 Date cc: Dario Clifton DO; Laura Cleaning MD * Signed ADDENDUM by Anurag Miranda on 07/18/18 at 1921 RAD/Cholangiogram/ O R,Initial 07/18/181925 Date cc: Dario Clifton DO; Laura Cleaning MD * Signed PROCEDURE: INTRAOPERATIVE CHOLANGIOGRAM. REASON FOR EXAM: Female, 23 years old. Cholelithiasis, cholecystitis. FLUOROSCOPY TIME (if supplied): (0:28) minutes/seconds TECHNIQUE: Real-time fluoroscopy was provided during intraoperative contrast infusion via the cystic duct during intraoperative fluoroscopic spot films are submitted. COMPARISON: CT abdomen and pelvis without contrast July 14, 2017; acute abdomen series and right upper quadrant ultrasound earlier today. FINDINGS: Poorly visualized intrahepatic bile ducts Normal caliber extrahepatic bile ducts. Mild luminal contour irregularity near the level of the sphincter of Jerald, but contrast flows to the duodenum. No discrete filling defect to indicate a common bile duct stone. RAD/Cholangiogram/ O R,Initial IMPRESSION: Normal intraoperative cholangiogram. Electronically Signed: Anurag Miranda MD at 19:47 EST , Service support , CC: Dario Clifton DO; Laura Cleaning MD Numerical Control Drill Press Operator: Signed HISTORY AND PHYSICAL Observed: 06/27/2018 Status: F Source: [place] EXAM 12:36 PM [facility] REPOSITORY [facility] Medical Records Department [address] [place] [address] History and Physical 06/27/18 1059 MR#: [id number] Acct: [id number] Name: SANTIAGO SALGUERO Rep #: [id number] : 1995 23 From: Caity Sow PA-C PCP: Dario Clifton DO Status: ADM ROCKY Y Location: [place] [address] ADDENDUM by Laura Cleaning MD on 06/27/18 at 1236 Code Visit Patient seen and examined agree with MILES Perkins note. Did discuss with the patient our plan for a laparoscopic cholecystectomy, with cholangiograms, possible open. Reviewed the patient's imaging as well as gallbladder anatomy with the patient. Discussed the risks including but not limited to bleeding, injury to another organs (i.e. small bowel, bile ducts, etc.) which may require transfer to tertiary care center or open surgery, retained gallstones which would require ERCP, bile leak which again may require an ERCP, possible open surgery which would require 3-4 days in the hospital and the anesthesia. Patient had no further questions at this time and is agreeable to proceed with surgery. Surgery is planned for today around 2 PM to 2:30 PM. Laura Cleaning M.D. Pager: [phone] [facility] [address] [place] [address], [facility], [address] [place] [id number] Office: [phone] 06/27/18 1236 <Electronically signed by Laura Cleaning MD> Date Laura Cleaning MD cc: Caity Sow PA-C; Dario Clifton DO; Laura Cleaning MD * Signed Problem List (1) Right upper quadrant abdominal pain Status: Acute (2) Acute cholecystitis Status: Acute History of Present Illness Date of Admission: 06/27/18 Chief Complaint: Epigastric/right upper quadrant pain. Nausea. Vomiting The patient is a 23 year old F who presents with a 2 day history of epigastric pain, nausea, vomiting. Patient states she is unsure what brought this pain on. Patient does not associate this pain with food however she has not paid too much attention to her diet. Patient stated she has had a dull pain/discomfort which has woken her up from sleep at night for the last several months. She did not relate this discomfort to anything specific. She notes stress within her life with her 3 children. She notes constipation more lately. She denies change in color of stool. 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 She has had previous surgery per Dr. Morris in February twice. 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 She is currently being seen by the wound center weekly for debridement and dressing changes. She had to have a PICC line placed for IV antibiotics. This was discontinued at the beginning of April. She noted finding out she had an allergy to Vanco throughout all of this. Patient notes abdominal surgeries include tubal ligation and appy. She has delivered 3 children vaginally without any complications. She has also had a anne-marie placed in her back. Patient denies previous history of gallbladder disease. She denies smoking and alcohol use. She denies previous myocardial infarction, stroke and blood clots. She denies previously being seen by cardiology. 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) BMI 38.0-38.9,adult (Chronic) Depression (Chronic) Medical History: Medical History (Last Reviewed 06/27/18 @ 11:21 by Caity Sow PA-C) Anxiety and depression F41.9, F32.9 Back problem M53.9 Gallstones K80.20 Kidney stones N20.0 Allergies No Known Allergies Allergy (Verified 05/10/18 16:31) Home Medications: Ambulatory Orders Medication Instructions Recorded Surgical History: Surgical History (Last Reviewed 06/27/18 @ 11:21 by Caity Sow PA-C) History of appendectomy Z90.49 History of back surgery Z98.890 2007 History of tubal ligation Z98.51 Surgical History: appendectomy, - - Tubal ligation, back surgery for scoliosis Psychiatric History: No pertinent psych hx GUEST RELATIONS RECEPTIONIST History: No pertinent GUEST RELATIONS RECEPTIONIST history Lives: Spouse/ Significant Other Smoking Status: Never smoker Alcohol: None - *Family History Maternal Family History: Family History (Last Reviewed 06/27/18 @ 11:21 by Caity Sow PA-C) Mother Diabetes Hypertension Father Hypertension Grandmother Diabetes History Items: No pertinent history Paternal Family History: Family History (Last Reviewed 06/27/18 @ 11:21 by Caity Sow PA-C) Mother Diabetes Hypertension Father Hypertension Grandmother Diabetes History Items: No pertinent history Review of Systems Constitutional: Reports: Anorexia HEENT: Denies: Head Aches, Sinus Congestion, Sinus Drainage Cardiovascular: Denies: Chest Pain, Palpitations Respiratory: Denies: Cough, Shortness of breath at rest, Sputum production Gastrointestinal: Reports: Abdominal Pain, Constipation, Nausea, Vomiting Genitourinary: Denies: Dysuria Musculoskeletal: Reports: Back Pain. Denies: Joint Pain, Joint Tenderness Skin: Denies: Rash, Wounds Neurological: Denies: Numbness, Tingling, Focal weakness Psychiatric: Denies: Anxiety, Depression, Homicidal Ideations, Suicidal Ideations Hematologic/ Lymphatic: Denies: Easy Bruising, Easy Bleeding VTE Information - Inpt Only VTE Present on Admission: Yes VTE Mechan Device Prophylaxis: SCD's Patient Problems: Active and Suspected Problems (Last Reviewed 05/10/18 @ 21:13 by Bucky Vega MD) Right upper quadrant abdominal pain (Acute) Acute cholecystitis (Acute) - Physical Exam General: Alert, Oriented x3, Cooperative HEENT: Atraumatic, PERRLA, EOMI, Normocephalic Neck: Supple, No JVD, Negative Carotid Bruits Lungs: Diminished - bilateral bases Cardiovascular: Regular rate, No murmurs Abdomen: Soft, Hypoactive Bowel Sounds, Obese, Guarding, Tender - epigastric, RUQ Extremities: No edema, Capillary Refill Less than 3 Seconds Skin: No rashes, No breakdown Musculoskeletal: No Tenderness to Palpation of Joints or Extremities Neurological: Cranial nerves II-XII grossly intact, Neuro grossly intact Psych/Mental Status: Normal Affect, Appropriate Vital Signs Temp Pulse Resp BP Pulse Ox 98.5 F 97 16 130/77 H 97 06/27/18 03:28 06/27/18 10:02 06/27/18 10:02 06/27/18 10:02 06/27/18 10:02 Oxygen Delivery Method Room Air Weight: 229 lb 15.074 oz Body Mass Index (BMI) 37.0 Laboratory Tests Past 24 Hrs WBC 5.9 RBC 4.60 Hgb 12.1 Hct 38.1 MCV 82.8 MCH 26.3 L MCHC 31.8 L WBC RBC Hgb Hct MCV MCH MCHC RDW RDW Differential Plt Count Assessment/Plan All Active Problems (Last Reviewed 05/10/18 @ 21:13 by Bucky Vega MD) Right upper quadrant abdominal pain (Acute) Acute cholecystitis (Acute) Drug induced fever (Acute) Pancytopenia with fever (Acute) Pancytopenia (Acute) Iron deficiency anemia (Acute) Pseudomonas aeruginosa infection (Acute) Open wound of right chest wall with complication (Acute) Cellulitis of right breast (Acute) Cellulitis of chest wall (Acute) Abscess of chest wall (Acute) Cellulitis and abscess of other specified site (Acute) MRSA (methicillin resistant Staphylococcus aureus) infection (Acute) Abscess of right breast (Ruled-out) Acute pyelonephritis (Resolved) I am following this patient in conjunction with Dr. Cleaning Impression: Right upper quadrant pain/epigastric pain. Acute cholecystitis. Plan: I have discussed this patient with Dr. Cleaning. Dr. Cleaning will plan to perform a laparoscopic cholecystectomy with intraoperative cholangiogram. Procedure details, risks and benefits have been explained to the patient and her significant other. Patient has had the opportunity to ask and have questions answered. Patient verbally understands and agrees with the plan. Will plan to admit, IV hydrate, control pain, IV Protonix, keep NPO for surgery later today. Dr. Cleaning will evaluate prior to surgery. Thank you for allowing us to participate in this patient's care. My recommendations will be available via electronic medical record. Code Visit Office Visits / Consults: 31123 IP Consult L3 06/27/18 1127 <Electronically signed by Caity Sow PA-C> Date Caity Sow PA-C Cosigner Signature: Date (if applicable) CC: Caity Sow PA-C; Dario Clifton DO; Laura Cleaning MD Signed GALLBLADDER Observed: 06/27/2018 Status: F Source: [place] 12:00 PM [facility] REPOSITORY Patient: SANTIAGO SALGUERO : 1995 () Acct Num: [id number] Phys: Laura Cleaning MD Unit Num: [id number] Loc: MS3 [id number] Specimen: [id number] Received: 06/28/18 - 1024 Spec Type: GALLBLADDE TISSUES 1 TISSUES: Gallbladder, NOS GROSS DESCRIPTION Received is one container labeled with the patient's name and designated gallbladder. The specimen consists of a gallbladder measuring 10 x 2 x 2 cm. The external surface is smooth and glistening. Focally, it is granular, hemorrhagic and contains cautery artifact. The lumen of the gallbladder contains greenish mucoid bile and multiple yellow-portillo calculi ranging in size from 0.2 to 0.5 cm in greatest dimension. The mucosa is bile- stained and without any mass lesions. The gallbladder wall averages 0.2 cm in thickness and is free of mass lesions. Hot Frame Tender sections of the gallbladder and the cystic duct are submitted in one cassette. / AM:mychal 06/28/18 More sections are submitted in cassette 2. / SJ:mychal 06/29/18 TC:3 CPT: 30848 HEADER OPERATION: Laparoscopic cholecystectomy with IOC PRE-OP DIAGNOSIS: Right upper quadrant abdominal pain, acute cholecystitis TISSUE SUBMITTED: Gallbladder and contents MICROSCOPIC DESCRIPTION Slides are reviewed. MICROSCOPIC DIAGNOSIS Gallbladder and contents: Chronic cholecystitis and cholelithiasis. A pericystic lymph node with reactive changes. SJ:mychal 06/29/18 Signed Winston Muller 07/01/18 <signature on file> Performed By: #### PGALL #### [facility] [address] [place], [address] URINALYSIS, COMPLETE Collected: 06/27/2018 Status: F Source: [place] 7:00 AM [facility] REPOSITORY Order Comment: How was Urine Obtained? CLEAN CATCH TYPE CODE TESTS RESULT OUT OF RANGE REFERENCE UNITS LAB L400.3000 Yellow COLOR Normal Yellow LAB L400.3050 Clear Normal CLARITY Sl. Cloudy LAB L400.3200 Normal mg/dl Normal GLUCOSE, UR Normal LAB L400.3300 Negative mg/dL Normal BILIRUBIN URINE Negative LAB L400.3400 Negative mg/dl Normal KETONE UR Negative LAB L400.3465 1.002-1.030 Normal SP.GR. DIPSTX 1.010 LAB L400.3550 5.0 - 8.0 pH UR Normal 8.0 LAB L400.3600 Negative mg/dl PROT Normal DIPSTX Negative LAB L400.3700 Normal mg/dl Normal UROBILI Normal LAB L400.3750 Negative Normal NITRITE UR Negative LAB L400.3780 Negative /ul Normal OCCULT BLOOD-UR Negative LAB L400.3800 Negative /ul LEUK Normal ESTERASE Negative LAB L400.4050 0-5 /hpf WBC 0 Normal SEEN LAB L400.4100 0-5 /hpf 0 Normal RBC-UA SEEN LAB L400.4150 5-10 /hpf SQUAM Normal EPI 0-5 SEEN LAB L400.4300 None Seen /hpf 1+ Normal BACTERIA LAB L400.4350 <or=2+ /hpf 0 Normal MUCUS, URINE SEEN Performed By: #### L400.0001 #### [facility] [address] [place], [address] GALLBLADDER Observed: 06/27/2018 Status: F Source: [place] 5:28 AM [facility] REPOSITORY [facility] Imaging Services [address] [place] [address] Gallbladder MR#: [id number] Acct: [id number] Name: SANTIAGO SALGUERO Rep #: [id number] : 1995 F 23 From: Karen Salguero MD PCP: Dario Clifton DO Status: REG ER Study: Gallbladder Date of Exam: 06/27/18 Exam# [id number] Ordering Dr: Nishant Marin DO STUDY: ABDOMINAL ULTRASOUND - RIGHT UPPER QUADRANT REASON FOR VISIT: Female, 23 years old. Right upper quadrant without pain for 2 days TECHNIQUE: Ultrasound evaluation of the right upper quadrant was performed with real-time and static briggs-scale imaging. TECHNICAL QUALITY: Adequate. COMPARISON: CT of the abdomen and pelvis dated July 14, 2017. FINDINGS: Liver: The liver measures cm. There is normal echogenicity of the liver. The bile ducts are within normal limits. There is hepatic color flow. The direction of portal flow is hepatopetal. There is no demonstrated mass lesion. Gallbladder: Normal distended gallbladder. The gallbladder wall measures 3.2 mm. There is a positive sonographic Ken's sign. There is no pericholecystic fluid. There are multiple echogenic structures within the gallbladder, consistent with multiple gallstones. Common Bile Duct (C.B.D.): The common bile duct measures 3.3 mm. Pancreas: Normal size of the head, body and tail of the pancreas. There is increased echogenicity of the pancreas. There is no demonstrated pancreatic mass or cyst. Right Kidney: Normal size of the right kidney. The right kidney measures 10.7 x 4.4 x 5.7 cm. Normal renal cortex. The right cortex measures 2.5 cm. There is no demonstrated renal mass or cyst. There is no right hydronephrosis. US/Gallbladder IMPRESSION: Cholelithiasis with positive sonographic Ken's sign suggest possible acute cholecystitis. Electronically Signed: Karen Salguero MD at 8:37 EST , Service support , CC: Dario Clifton DO; Nishant Marin Numerical Control Drill Press Operator: Signed ACUTE ABDOMEN INC Observed: 06/27/2018 Status: F Source: [place] CHEST 3:45 AM [facility] REPOSITORY [facility] Imaging Services [address] [place] [id number] Acute Abdomen Inc Chest MR#: [id number] Acct: [id number] Name: SANTIAGO SALGUERO Rep #: [id number] : 1995 F 23 From: Karen Salguero MD PCP: Dario Clifton DO Status: REG ER Study: Acute Abdomen Inc Chest Date of Exam: 06/27/18 Exam# [id number] Ordering Dr: Nishant Marin DO STUDY: X-RAY - ACUTE ABDOMINAL SERIES REASON FOR EXAM: Female, 23 years old. Epigastric abdominal pain. TECHNIQUE: Single view of the chest. Supine, and erect view(s) of the abdomen were obtained. COMPARISON: CT of the abdomen and pelvis dated July 14, 2017. FINDINGS: The lungs are clear and hyperexpanded. There is heterogeneous right basilar airspace consolidation. This suggests possible pneumonia. There is borderline cardiomegaly. Normal mediastinum and yissel. Normal visualized pulmonary arteries. Normal visualized aortic arch and descending thoracic aorta. There is a non-specific bowel gas pattern. There is no obvious organomegaly, mass, dilated bowel or pathologic calcifications. Surgical clips are visible in pelvis probably related to tubal ligation. Patient has the extensive surgery of the thoracic or lumbar spine with Duff rods. There is mild residual curvature of the lumbar spine with convexity towards the left. RAD/Acute Abdomen Inc Chest IMPRESSION: 1. Heterogeneous right basilar airspace consolidation possibly representing pneumonia. 2. No radiographic evidence of acute intra-abdominal disease. Electronically Signed: Karen Salguero MD at 4:20 EST , Service support , CC: Dario Clifton DO; Nishant Marin Numerical Control Drill Press Operator: Signed CBC W/DIFF, AUTOMATED Collected: 06/27/2018 Status: F Source: [place] 3:30 AM [facility] REPOSITORY TYPE CODE TESTS RESULT OUT OF RANGE REFERENCE UNITS LAB L100.1000 4.4-11.0 K/mm3 Normal WBC 5.9 LAB L100.1200 4.2-5.4 M/mm3 Normal RBC 4.60 LAB L100.1300 12.0-15.0 g/dl Normal HGB 12.1 LAB L100.1400 37-47 % Normal HCT 38.1 LAB L100.1500 81-99 fL Normal MCV 82.8 LAB L100.1600 27.0-32.0 pg Low MCH 26.3 LAB L100.1700 32-36 g/gl Low MCHC 31.8 LAB L100.1810 11.6-14.6 % High RDW CV 14.8 LAB L100.1820 35.1-43.9 fl High RDW SD 44.9 LAB L100.1900 150-450 K/mm3 Normal PLT 221 LAB L100.2000 6.2-12.0 fl Normal MPV 11.0 LAB L100.2100 47-70 % Normal NEUT% 60.5 LAB L100.2200 19-41 % Normal LY% 29.7 LAB L100.2300 0-10 % Normal MONO% 8.9 LAB L100.2400 0-5 % Normal EO% 0.7 LAB L100.2500 0-1 % Normal BASO% 0.2 LAB L100.2550 0.0-0.9 % Normal IM GRAN % 0.000 Result Comment: IG% - Immature Granulocytes (promyelocytes, myelocytes and metamyelocytes) > 1% indicates that a LEFT SHIFT is Present. LAB L100.2620 2.0-7.7 X10 3/uL Normal Absolute Neut 3.6 LAB L100.2720 0.83-4.51 X10 3/ul Normal Absolute Lymph 1.74 Performed By: #### L100.0100 #### [facility] [address] [facility] [place], [place], [id number] BASIC METABOLIC Collected: 06/27/2018 Status: F Source: [place] PRO[place] (BMP) 3:30 AM [facility] REPOSITORY TYPE CODE TESTS RESULT OUT OF RANGE REFERENCE UNITS LAB L501.0100 74-106 mg/dL Normal GLU 99 Result Comment: Please note revised GLUCOSE reference range effective 2017. LAB L501.1000 7-18 mg/dL Low BUN 5 LAB L501.1100 0.55-1.02 mg/dL Normal CREAT,SERUM 0.67 Result Comment: The validity of the calculated GFR AND GFRAA in patients over 70 years has not been determined. Clinical correlation is essential. LAB L501.1110 >60 mL/min Normal EST GFR 114 Result Comment: Non- GFR Calc LAB L501.1115 >60 mL/min Normal EST GFR - AA 138 Result Comment: GFR Calc LAB L501.1255 ml/min Normal Estimated CRCL 120.16 LAB L501.1300 10-20 RATIO Low BUN/CRE 7.5 LAB L501.2200 8.5-10 mg/dL Low .1 CA 8.4 LAB L501.5300 136-14 mmol/L 5 NA Normal 143 LAB L501.5600 3.5-5. mmol/L 1 K Normal 3.6 LAB L501.5900 98-107 mmol/L High CL 108 LAB L501.6100 21.0-3 mmol/L 2.0 CO2 Normal 26.0 LAB L501.6200 5-15 GAP Normal 9 Performed By: #### L500.2500, L500.3400, L501.2450 #### [facility] [address] [facility]. [place], [place], [address] LIVER PROFILE Collected: 06/27/2018 Status: F Source: [place] 3:30 AM [facility] REPOSITORY TYPE CODE TESTS RESULT OUT OF RANGE REFERENCE UNITS LAB L501.1500 6.4-8.2 g/dL Normal T PROT 7.4 LAB L501.1800 3.2-5.0 g/dL Normal ALB 3.7 LAB L501.1950 2.2-4.2 g/dL Normal GLOB 3.7 LAB L501.4100 15-37 U/L High AST 263 LAB L501.4305 45-117 U/L High ALK P 152 LAB L501.4405 13-56 U/L High ALT 132 LAB L501.4600 0.20-1.00 mg/dL Normal T BILI 0.40 LAB L501.4700 0.00-0.30 mg/dL Normal D BILI 0.21 Performed By: #### L500.2500, L500.3400, L501.2450 #### [facility] [address] [facility]. [place], [place], [id number] LIPASE Collected: 06/27/2018 Status: F Source: [place] 3:30 AM [facility] REPOSITORY TYPE CODE TESTS RESULT OUT OF RANGE REFERENCE UNITS LAB L501.2450 73-393 U/L Normal LIPASE 176 Performed By: #### L500.2500, L500.3400, L501.2450 #### [facility] [address] [facility] [place], [place], [id number] ,SERUM,HCG QUALI. Collected: Status: F Source: [place] 06/27/2018 3:30 AM [facility] REPOSITORY TYPE CODE TESTS RESULT OUT OF REFERENCE UNITS RANGE LAB L700.6700 =>Qualitative mIU/mL Normal HCG Qual < 1 triggr LAB L700.7000 0-9 Nonpreg Negative Normal HCGSQUAL NEGATIVE Performed By: #### L700.6800 #### [facility] [address] [facility] [place], [place], [id number] Observed: 06/13/2018 Status: F Source: [place] CULTURE, DEEP WOUND 4:42 PM [facility] REPOSITORY Comments: RIGHT SIDE CHEST WOUND Gram Stain Gram Stain 4+ Red Blood Cells No White Blood Cells No organisms seen Wound Culture No growth aerobically. Cult, Anaerobic No growth in 5 days. Performed By: #### M100.1500 #### [facility] [address] [place], [address] 12 LEAD ELECTROCARDIOGRAM Observed: 05/18/2018 Status: F Source: [place] 3:45 PM [facility] REPOSITORY [facility] Cardiovascular Services [address] [place] [address] 12 Lead EKG 05/12/18 2310 MR#: [id number] Acct: [id number] Name: FRANKY SALGUEROGABI Pruett Rep #: [id number] : 1995 23 From: Ji Maria MD Attending Dr: Tiago Almaraz MD Status: DIS IN Ordering Dr: Bucky Vega MD Date: 05/12/18 Location: [facility] Sex: F C Admitted: 05/10/18 Test Reason : CP Blood Pressure : / mmHG Vent. Rate : 076 BPM Atrial Rate : 076 BPM P-R Int : 126 ms QRS Dur : 094 ms QT Int : 398 ms P-R-T Axes : 041 033 018 degrees QTc Int : 447 ms Normal sinus rhythm with sinus arrhythmia Normal ECG When compared with ECG of 18-OCT-2014 11:34, No significant change was found Confirmed by CROW MADDEN, JI ([id number]), sound editor MADISON SALGUERO ([id number]) on 05/18/2018 3:44:35 PM Referred By: DANNY Confirmed By:JI MARIA MD 05/18/18 1544 Date Ji Maria MD CC: Dario Clifton DO; Bucky Vega MD; Tiago lAmaraz MD Signed DISCHARGE SUMMARY Observed: 05/13/2018 Status: F Source: [place] 3:10 PM [facility] REPOSITORY [facility] Medical Records Department [address] [place] [address] Discharge Summary 05/13/18 1343 MR#: [id number] Acct: [id number] Name: SANTIAGO SALGUERO Rep #: [id number] : 1995 23 From: Maxwell AQUINO PCP: Dario Clifton, DO Status: DIS IN Y [id number] <Maxwell Campos - Last Filed: 05/13/18 13:43> Discharge Date and Diagnosis Date of Admission: 05/10/18 Date of Discharge: 05/13/18 - Primary Discharge Diagnosis Active and Suspected Problems (Last Reviewed 05/10/18 @ 21:13 by Bucky Vega MD) Drug induced fever and pancytopenia (Acute) Chronic right axillary wound with MRSA, pseudomonas, prior debridement by Dr. Morris Iron deficiency anemia (Acute) Anxiety/depression Obesity - Secondary Discharge Diagnosis Chronic Problems (Last Reviewed 05/10/18 @ 21:13 by Bucky Vega MD) BMI 38.0-38.9,adult (Chronic) Depression (Chronic) Hospital Course and Treatment Consultations 05/10/18 20:36 Consult: Onc/Wound/recreational vehicle repairer Routine Comment: Lani - plastics Alma Delia - RUCHI Ceballos - hematology/oncology Operations: - - 04/18/18 - Surgical preparation right lateral chest wall with incision and drainage and excisional debridement Pseudomonas abscess (40 cm2). Procedures: None Summary of Care Provided: Physical exam on day of discharge: General: Resting comfortably NAD Psych: A/Ox3 normal affect HEENT: PEARRLA AT NC Neck: Supple NT CV: RRR no m/t/r/g/h Resp: CTA Abd: NABSX4 Soft NT no guarding or rigidity Ext: DP2+= no edema Skin: W/D normal turgor Lymph/Heme: No active bleeding or adenopathy Neuro: CN2-12 intact Hospital course: The patient is a 23 year old F with a past medical history of an axillary wound with MRSA and Pseudomonas which was previously debrided by Dr. Morris, also with a history of anxiety, depression who presented to the emergency room from Dr. Hernandez office for fever. In the ER she was found to be pancytopenic with white count of 0.6, hemoglobin of 10.1 with microcytosis, platelets 104, absolute neutrophil count of 0.1. She had been on about 3-1/2 weeks of IV antibiotics for the prior wound in her axilla with ciprofloxacin, cefepime, and vancomycin. It is felt that her pancytopenia was likely drug-induced from 1 of these antibiotics however it is unclear which one specifically. The patient was admitted to the PCU and placed on meropenem and daptomycin. Infectious disease, hematology, and Dr. Morris were consulted. Blood cultures and wound cultures were obtained. These were negative. Infectious disease felt that no further antibiotics were warranted and advised her PICC line and antibiotics be discontinued. The patient was given Granix per hematology, and her cell lines did recover. She was also given Venofer as she was found to be iron deficient. After her blood cultures were negative, antibiotics and PICC line were discontinued and she was felt to be stable for discharge. She was discharged home in stable condition and advised to follow- up with her surgeon, infectious disease, and hematology as an outpatient. This patient was seen by Maxwell Campos PA-C under the supervision of Doctor Almaraz. [] Discharge Diet: No Restrictions Discharge Activity: Return to Normal Activity Home Medications: Medications to take at Discharge diazepam 5 mg tablet 5 mg PO 4X/DAY PRN #30 tab 05/09/18 buPROPion XL [Wellbutrin Xl] 300 mg PO DAILY 05/10/18 Escitalopram Oxalate [Lexapro] 5 mg PO DAILY 05/11/18 DiphenhydrAMINE [Benadryl] 25 mg PO TID PRN PRN #30 cap 05/13/18 Ferrous Sulfate [Iron] 325 mg PO BID #60 tab 05/13/18 Gauze Bandage [Bandage Roll] 1 ea TP .QDAILY #30 bandage 05/13/18 Oxycodone HCl/Acetaminophen [Percocet 5-325] 1 - 2 tab PO 4X/DAY PRN PRN 7 Days #40 tab 05/13/18 Silver/Hydrocolloid Dressing [Aquacel-Ag W-Hydrofiber Dress] 1 ea TP .QDAILY 30 Days #30 bandage 05/13/18 Following Prescrptions Were Given to Patient: DiphenhydrAMINE [Benadryl] 25 mg PO TID PRN PRN #30 cap PRN Reason: Itching Ferrous Sulfate [Iron] 325 mg PO BID #60 tab Gauze Bandage [Bandage Roll] 1 ea TP .QDAILY #30 bandage Oxycodone HCl/Acetaminophen [Percocet 5-325] 1 - 2 tab PO 4X/DAY PRN PRN 7 Days #40 tab PRN Reason: Pain Silver/Hydrocolloid Dressing [Aquacel-Ag W-Hydrofiber Dress] 1 ea TP .QDAILY 30 Days #30 bandage Primary Care Physician: Dario Poe DO [Primary Care Provider] - Please follow up with your Primary Care Physician in: 2 weeks Please Follow Up With: Romelia Morris MD When: As directed Please Follow Up With: Anthony Ceballos MD When: 2 weeks Please Follow Up With: Emory Flannery MD When: 2 weeks Disposition: Home Minutes spent on discharge:: 35 Patient Condition:: Stable Medical Necessity - Tobacco Use Smoking Status: Never smoker Meaningful Use Info Meaningful Use Diagnoses (Choose all that apply): None applicable <Tiago Almaraz - Last Filed: 05/13/18 15:10> Discharge Date and Diagnosis - Secondary Discharge Diagnosis Chronic Problems (Last Reviewed 05/10/18 @ 21:13 by Bucky Vega MD) BMI 38.0-38.9,adult (Chronic) Depression (Chronic) Hospital Course and Treatment Consultations 05/10/18 20:36 Consult: Onc/Wound/recreational vehicle repairer Routine Comment: Summary of Care Provided: The patient is a 23 year old F [] Code Visit Addendum: Dr. Almaraz I personally examined the patient and reviewed the chart. I agree with the above. Ms. Salguero is a 23-year-old female status post right abscess drainage and antibiotics. She developed a fairly acute pancytopenia and was admitted with neutropenic fever. On admission initially this was felt to be due to a drug reaction blood cultures and wound cultures were obtained that were all negative. Infectious disease and hematology were consulted, hematology recommended Domonique for her anemia as well as Granix for her neutropenia and on discharge her white blood cell count had increased to 15.5. Negative blood cultures and wound cultures infectious disease recommended removal of the PICC line and to discontinue all antibiotics with outpatient follow-up given how clean the wound is. Inpatient E AND M: [id number] Disch Hosp 05/13/18 1350 <Electronically signed by Maxwell AQUINO> Date Maxwell AQUINO 05/13/18 1510<Electronically signed by Tiago Almaraz MD> Cosigner Signature (if applicable): Date Tiago Almaraz MD CC: MILES Campos; Dario Clifton DO; Tiago Almaraz MD Signed DISCHARGE INSTRUCTION Observed: 05/13/2018 Status: F Source: [place] 1:25 PM [facility] REPOSITORY [facility] Medical Records Department [address] [place] [address] Instructions for Home/Discharge Instructions 05/13/18 1145 MR#: [id number] Acct: [id number] Name: SANTIAGO SALGUERO Rep #: [id number] : 1995 23 From: Maxwell AQUINO PCP: Dario Clifton DO Status: ADM IN ADDENDUM by Romelia Morris MD on 05/13/18 at 1323 Wrote scripts for Percocet for pain (40 tabs) and Benadryl for itching, (30 tabs) with 2 refills. [facility] on 05/23/18 or 05/24/18. Please call [phone] for appt time. Date Romelia Morris MD cc: Romelia Morris MD; Dario Clifton DO; Emory Flannery MD; Cassandra Balderas SPACE BUYER * Signed Addendum entered and electronically signed by Romelia Morris MD 05/13/18 13:21: Wrote scripts for Percocet for pain (40 tabs) and Benadryl for itching, (30 tabs) with 2 refills. She will followup at the [facility] on 05/23/18 or 05/24/18. Please call [phone] for appt time. Original Note: - Discharge Diagnoses Current Active Problems: Current Active and Chronic Problems (Last Reviewed 05/10/18 @ 21:13 by Bucky Vega MD) Drug induced fever (Acute) Pancytopenia with fever (Acute) Pancytopenia (Acute) Iron deficiency anemia (Acute) You will use the following diet at home:: No restrictions Your food should be the consistency of: Regular Your liquids should be the consistency of: Regular/Thin Discharge Activity: Return to Normal Activity Allergies/Adverse Reactions: Allergies No Known Allergies Allergy (Verified 05/10/18 16:31) Medications to take at Discharge Oxycodone HCl/Acetaminophen [Percocet 5-325] 1 - 2 tab PO 4X/DAY PRN PRN 7 Days #50 tab 04/25/18 diazepam 5 mg tablet 5 mg PO 4X/DAY PRN #30 tab 05/09/18 buPROPion XL [Wellbutrin Xl] 300 mg PO DAILY 05/10/18 Escitalopram Oxalate [Lexapro] 5 mg PO DAILY 05/11/18 Ferrous Sulfate [Iron] 325 mg PO BID #60 tab 05/13/18 The following prescriptions were given: Ferrous Sulfate [Iron] 325 mg PO BID #60 tab Primary Care Physician: Dario Poe DO [Primary Care Provider] - Please follow up with your Primary Care Physician in: 2 weeks Test Results: Test results from this visit will be discussed in further detail at your follow-up appointment, if applicable. Please Follow Up With: Romelia Morris MD When: As directed Please Follow Up With: Anthony Ceballos MD When: 2 weeks Please Follow Up With: Emory Flannery MD When: 2 weeks Proposed Discharge Date: 05/13/18 05/13/18 1146 <Electronically signed by Maxwell AQUINO> Date Maxwell AQUINO CC: Romelia Morris MD; Dario Clifton DO; Emory Flannery MD; Cassandra Balderas SPACE BUYER CBC W/DIFF, AUTOMATED Collected: 05/13/2018 Status: C Source: [place]ANE 6:28 AM [facility] REPOSITORY TYPE CODE TESTS RESULT OUT OF RANGE REFERENCE UNITS LAB L100.1000 4.4-11.0 K/mm3 High WBC 15.5 LAB L100.1200 4.2-5.4 M/mm3 Low RBC 4.00 LAB L100.1300 12.0-15.0 g/dl Low HGB 10.2 LAB L100.1400 37-47 % Low HCT 32.1 LAB L100.1500 81-99 fL Low MCV 80.3 LAB L100.1600 27.0-32.0 pg Low MCH 25.5 LAB L100.1700 32-36 g/gl Low MCHC 31.8 LAB L100.1810 11.6-14.6 % Normal RDW CV 13.9 LAB L100.1820 35.1-43.9 fl Normal RDW SD 40.4 LAB L100.1900 150-450 K/mm3 Normal PLT 165 LAB L100.2000 6.2-12.0 fl Normal MPV 12.0 LAB L100.3100 MANUAL DIFF Normal CELLS COUNTED 100 LAB L100.3200 47-70 % 62 Normal SEGS LAB L100.3400 0-1 % High 5 META LAB L100.3500 0-0 High 5 MYELO LAB L100.3800 19-41 % 23 Normal LYMPH LAB L100.3900 0-10 % 2 Normal MONOCYTE LAB L100.4000 0-5 % 2 Normal EOS LAB L100.4100 0-1 % 1 Normal BASOPHIL LAB L100.5500 ADEQ Normal PLT EST ADEQUATE LAB L100.7000 NORM C AND C NORMAL Normal RED CELL MORPH NORM C+C LAB L100.2620 2.0-7.7 X10 3/uL High Absolute Neut 9.6 LAB L100.2720 0.83-4.51 X10 3/ul Normal Absolute Lymph 3.57 LAB L100.9900 Normal PATH REV Reviewed Result Comment: Neutrophilic leukocytosis with left shift. Clinical correlation necessary. Winston Muller M.D. 05/13/18 AMENDED REPORT 05/13/18 1520 PATH REV previously reported as: December irina Performed By: #### L100.0100 #### [facility] [address] [place], [address] CONSULTATION Observed: 05/12/2018 Status: F Source: VANE 11:24 AM [facility] REPOSITORY [facility] Records Department [address] [place] [address] Consultation 05/11/18 1237 MR#: [id number] Acct: [id number] Name: SANTIAGO SALGUERO Rep #: [id number] : 1995 23 From: Cassandra Balderas SPACE BU[employer]ER-C PCP: Dario Clifton, DO Status: ADM IN Y Location: [place] [address] Subjective Date of Service:: 05/11/18 Chief Complaint: Pancytopenia History of Present Illness: Ms. Santiago Salguero is a pleasant 23 year old woman who developed a small lesion in the right axilla February 2018 which led to abscess, multiple procedures and several admissions. Wound found to be associated with MRSA infection. PICC line placed and began IV vancomycin, cefepime and PO Cipro approximately 04/19/18 in the home setting. Since that time she experienced fatigue and intermittent nausea but afebrile until 05/09/18. Subsequently presented to [facility] ED and found to be pancytopenic (new finding) with an ANC of 0.1. Admitted for management. Antimicrobial therapy modified to include daptomycin and meropenem, previous atb discontinued. Patient states she has been told she was anemic at times in the past. LMP 04/27/18 approximately. Does not take any form of iron supplementation. Otherwise denies any episodes of overt bleeding but admits to bruising easily. Past Medical History: Chronic Problems (Last Reviewed 05/10/18 @ 21:13 by Bucky Vega MD) BMI 38.0-38.9,adult (Chronic) Depression (Chronic) Past Medical/Surgical History: Past Medical History - Most Recent Inpatient Visit Past Medical History Start: 05/10/18 20:15 Text: Status: Complete Freq: ONCE Protocol: Document 05/10/18 20:21 RACQUEL (Rec: 05/10/18 20:25 [facility] [id number]) BMI Required to complete PMH What is Patient's BMI 37.8 Past Medical History Unable History Recalled No Query Text:Pt Unable/Family Not Present Neurologic Medical History Hx Stroke/TIA No Hx Dementia/Alzheimer's No Hx Parkinson's Disease No Hx Seizures No Hx Multiple Sclerosis No Hx Migraines No Cardiac Medical History VTE Present on Admission No Hx of Deep Vein Thrombosis/VTE/PE No Hx Hypertension Yes: induced Hx Chest Pain/Angina No Hx Heart Attack No Hx Cardiac Surgery/Stents/Etc. No Hx Heart Failure No Hx Pacemaker/AICD No Hx Irregular Heartbeat and/or Afib No Hx Anticoagulant Therapy No Query Text:(Coumadin, Aspirin, Plavix, Xarelto, etc.) Hx Pain in Legs when Walking/Leg Cramps No Respiratory Medical History Hx COPD No Hx Emphysema No Hx Smoking No Smoking Status Never smoker Hx Smoking Exposure Yes Hx Tobacco Use in last 12 months No Hx of Pipe Smoking No Hx Sleep Apnea No CPAP No BIPAP No Do you snore loudly (louder than talking No or can be heard through closed doors)? Do you often feel tired/ fatigued/ Yes sleepy during daytime? Has anyone observed you stop breathing No during sleep? STOP Results Positive GI Medical History Hx Ulcer No Hx Hepatitis No Hx Cirrhosis No Hx GI Bleed No Hx Unplanned Weight Loss No Genitourinary Medical History Indwelling Catheter in Place on Arrival/ No Admission Hx Renal Disease No: hx of kidney stones Hx Dialysis No Musculoskeletal History Hx Arthritis Yes: pelvis and spine Hx Rheumatoid Arthritis No Endocrine Medical History Hx Diabetes No Hx Thyroid Disease No Hematologic Medical History Hx of Blood Transfusion No Hx of Transfusion in last 3 Months No Ever experience any problems with No transfusion(s)? Hx of Preganancy in last 3 Months No Nurse Filling Out Transfusion AND SGESSEL Questions: Date: 05/10/18 Time: 20:24 Psycho/Social Medical History Hx Depression Yes: on medication Hx Anxiety Yes Hx Behavior Disorder No Hx Alcohol Use No Hx Substance Use No Other Medical History Hx Blood Disorders No Hx Anemia No Hx Cancer No Hx Drug Resistant Organism Yes: mrsa Wound/Pressure Injury Present on Arrival Yes: to be assessed per /Admission primary rn Query Text:If yes, chart assessment in Shift/Clinical Findings Central Line/PICC/VAD Present on Arrival Yes /Admission Antibiotics within last 7 days? Yes Name of Antibiotic (Include dose/# days cefipime and vancomycin taken if known) Last day ATB taken 05/10/18 Risk for Readmission Number of Risk Factors 3 At Risk for Readmission Patient is At Risk For Readmission Patient is eligible for Call Back Y Past Medical History (Last Reviewed 05/10/18 @ 21:13 by Bucky Vega MD) Anxiety and depression (Acute) Back problem (Acute) Gallstones (Acute) Kidney stones (Acute) Past Surgical History (Last Reviewed 05/10/18 @ 21:13 by Bucky Vega MD) History of appendectomy (Acute) History of back surgery (Acute) History of tubal ligation (Acute) Maternal Family History: Family History (Last Reviewed 05/10/18 @ 21:13 by Bucky Vega MD) Mother Diabetes Hypertension Father Hypertension Grandmother Diabetes Family History: No pertinent history Paternal Family History: Family History (Last Reviewed 05/10/18 @ 21:13 by Bucky Vega MD) Mother Diabetes Hypertension Father Hypertension Grandmother Diabetes Family History: No pertinent history - Social History Lives: With Family Smoking Status: Never smoker Alcohol: None Allergies/Adverse Reactions: Allergy/AdvReac Type Severity Reaction Status Date / Time No Known Allergies Allergy Verified 05/10/18 16:31 Review of Systems Constitutional:: Reports: Weakness, Fatigue. Denies: Fever, Sweats, Weight loss, Appetite change, Chills Cardiovascular:: Denies: Chest pain, Palpitations, Dyspnea on exertion, Orthopnea, PND, Shortness of breath Respiratory: Denies: Cough, Hemoptysis, Shortness of Breath, Wheezing Gastrointestinal:: Reports: Nausea - see HPI. Denies: Abdominal pain, Vomiting, Diarrhea, Constipation, Melena, Hematochezia Genitourinary: Denies: Dysuria, Hematuria, Urinary frequency, Flank pain Musculoskeletal:: Denies: Back pain, Myalgia, Arthralgia Skin: Denies: Rash, Skin Changes, Wounds Neurological:: Denies: Headache, Dizziness, Numbness, Tingling, Visual changes, Tinnitus, Hearing loss Psychiatric: Denies: Anxiety, Depression, Homicidal Ideations, Suicidal Ideations Vital Signs Height 5 ft 6 in Weight: 232 lb 6.4 oz - Physical Exam General: Alert, Oriented x3, No apparent distress HEENT: Atraumatic, Normocephalic Oropharynx:: Negative for: Dry mucosa, Ulcerated lesions Neck:: Supple, Trachea midline. Negative for: JVD, bilateral Cardiac:: Regular rate, Regular rhythm, Normal S1, Normal S2. Negative for: Murmur Lungs: Clear to auscultation, Excusion symmetrical. Negative for: Rhonchi, Wheezes Abdomen:: Bowel sounds x 4, Soft, Non-tender, Non-distended. Negative for: Hepatosplenomegaly Extremities:: Negative for: Cyanosis, Edema Neurological: Neuro grossly intact Skin:: Ecchymosis - BLE in various stages of healing, - - Right axilla/chest wound not visualized- covered with DSD and KAVITHA wrap. Negative for: Lesions, Rash, Petechiae Psychiatric:: Appropriate affect, Euthymic Lymphatics:: Negative for: Cervical lymphadenopathy, Supraclavicular lymphadenopathy Laboratory Data: Laboratory Tests WBC 0.6 L* (4.4-11.0) K/mm3 RBC 4.04 L (4.2-5.4) M/mm3 Hgb 10.1 L (12.0-15.0) g/dl Hct 32.1 L (37-47) % MCV 79.5 L (81-99) fL Assessment and Plan 23 year old woman with right axilla/chest wound infection, left upper extremity PICC line and pancytopenia. 1. Pancytopenia- evidenced by ANC 0.1, Hgb 10 and platelet 129,000 on admission. Acquired, likely drug induced. Defer to infectious disease as to which antibiotic therapy best choice given context of pancytopenia. Blood cultures are pending. WBC modestly improved on labs dated today. Orders placed to run a differential on that specimen. I reviewed peripheral smear with pathologist, Dr. Muller. No blasts are visualized. Advise Granix 480 mcg daily until neutropenia resolves. Orders placed. Advise CBC with diff daily. Mild anemia has been present intermittently since . Not uncommon as she is of childbearing age, LMP 04/27/18, describes as typically heavy. Iron studies ordered, although anticipate ferritin may be elevated given current infectious process. Deficiency may be a contributing factor. Case discussed with Dr. Ceballos, who was in agreement with the aforementioned plan. Cassandra Balderas, MSN, BOTTLE CLEANER-C, AOCNP Medications: Prescriptions This Visit Medication Instructions Recorded Cefepime HCl [Maxipime] 2 gm IV Q12H 05/10/18 Ciprofloxacin [Cipro] 750 mg PO DAILY 05/10/18 Medications Added to Medication List This Visit Primary Care Provider: Dario Poe Referring Provider: - Problem List (1) Pancytopenia with fever Status: Acute (2) Open wound of right chest wall with complication Status: Acute Qualifiers: Encounter type: sequela Qualified Code(s): S21.101S - Unspecified open wound of right front wall of thorax without penetration into thoracic cavity, sequela 05/12/18 1124 <Electronically signed by Cassandra FREGOSO> Date Cassandra FREGOSO Cosigner Signature (if applicable): Date CC: Romelia Morris MD; Dario Clifton DO; Emory Flannery MD; Cassandra Balderas NP Signed BASIC METABOLIC Collected: 05/12/2018 Status: F Source: [place] PROFILE (BMP) 5:47 AM [facility] REPOSITORY TYPE CODE TESTS RESULT OUT OF RANGE REFERENCE UNITS LAB L501.0100 74-106 mg/dL Normal GLU 96 Result Comment: Please note revised GLUCOSE reference range effective 2017. LAB L501.1000 7-18 mg/dL Normal BUN 9 LAB L501.1100 0.55-1.02 mg/dL Normal CREAT,SERUM 0.56 Result Comment: The validity of the calculated GFR AND GFRAA in patients over 70 years has not been determined. Clinical correlation is essential. LAB L501.1110 >60 mL/min Normal EST GFR 141 Result Comment: Non- GFR Calc LAB L501.1115 >60 mL/min Normal EST GFR - AA 171 Result Comment: GFR Calc LAB L501.1255 ml/min Normal Estimated CRCL 143.76 LAB L501.1300 10-20 RATIO BUN/CRE Normal 16.2 LAB L501.2200 8.5-10 mg/dL .1 CA Normal 8.7 LAB L501.5300 136-14 mmol/L 5 NA Normal 140 LAB L501.5600 3.5-5. mmol/L 1 K Normal 3.6 LAB L501.5900 98-107 mmol/L CL Normal 107 LAB L501.6100 21.0-3 mmol/L 2.0 CO2 Normal 27.0 LAB L501.6200 5-15 GAP Normal 6 Performed By: #### L500.2500 #### [facility] [address] [place], [place], [address] CBC W/DIFF, AUTOMATED Collected: 05/12/2018 Status: F Source: VANE 5:47 AM [facility] REPOSITORY Order Comment: Comments: Lab draw 05/12/18 am TYPE CODE TESTS RESULT OUT OF RANGE REFERENCE UNITS LAB L100.1000 4.4-11.0 K/mm3 Normal WBC 4.9 LAB L100.1200 4.2-5.4 M/mm3 Low RBC 3.96 LAB L100.1300 12.0-15.0 g/dl Low HGB 10.1 LAB L100.1400 37-47 % Low HCT 31.9 LAB L100.1500 81-99 fL Low MCV 80.6 LAB L100.1600 27.0-32.0 pg Low MCH 25.5 LAB L100.1700 32-36 g/gl Low MCHC 31.7 LAB L100.1810 11.6-14.6 % Normal RDW CV 13.8 LAB L100.1820 35.1-43.9 fl Normal RDW SD 40.2 LAB L100.1900 150-450 K/mm3 Low PLT 143 LAB L100.2000 6.2-12.0 fl Normal MPV 11.7 LAB L100.2100 47-70 % Normal NEUT% 47.9 LAB L100.2200 19-41 % Normal LY% 35.1 LAB L100.2300 0-10 % High MONO% 13.1 LAB L100.2400 0-5 % Normal EO% 2.7 LAB L100.2500 0-1 % Normal BASO% 0.4 LAB L100.2550 0.0-0.9 % Normal IM GRAN % 0.800 Result Comment: IG% - Immature Granulocytes (promyelocytes, myelocytes and metamyelocytes) > 1% indicates that a LEFT SHIFT is Present. LAB L100.2620 2.0-7.7 X10 3/uL Normal Absolute Neut 2.3 LAB L100.2720 0.83-4.51 X10 3/ul Normal Absolute Lymph 1.71 Performed By: #### L100.0100 #### [facility] [address] [place], [address] CONSULTATION Observed: 05/11/2018 Status: F Source: [place] 2:12 PM [facility] REPOSITORY [facility] Medical Records Department [address] [place] [address] Consultation 05/11/18 1402 MR#: [id number] Acct: [id number] Name: SANTIAGO SALGUERO Rep #: [id number] : 1995 23 From: Emory Flannery MD PCP: Dario Clifton, Status: ADM IN Y Location: [place] [address] Problem List (1) Pancytopenia with fever Status: Acute Reason for Consult: neutropenic fever Consulted by: Dr. Almaraz History of Present Illness: The patient is a 23 year old F who is a pt of Dr. Morris for R breast infection. Prior cxs with MRSA, underwent second debridement 04/2018 admission with multiple cxs with PsA. Discharged on iv vanc and cefepime via picc with po cipro. Feeling ok while at home, no issues with picc, getting weekly labs. Had some irritation due to wound vac, but surg site doing well. Over past few days, developed severe fatigue, some chills, and moderate posterior headache. Came to ED, found to be pancytopenic, vanc changed to dapto. Full ROS performed and neg except as noted above. - Medical History Past Medical History (Chronic Problems): Chronic Problems (Last Reviewed 05/10/18 @ 21:13 by Bucky Vega MD) BMI 38.0-38.9,adult (Chronic) Depression (Chronic) Allergies/Adverse Reactions: Allergies No Known Allergies Allergy (Verified 05/10/18 16:31) Home Medications: Ambulatory Orders Medication Instructions Recorded Oxycodone HCl/Acetaminophen 1 - 2 tab PO 4X/DAY PRN PRN 7 Days 04/25/18 - Social History Tobacco Use: non-smoker Vital Signs Temp Pulse Resp BP Pulse Ox 97.7 F L 82 17 109/77 100 05/11/18 08:12 05/11/18 11:37 05/11/18 08:12 05/11/18 10:07 05/11/18 08:12 Oxygen Delivery Method Room Air Weight: 105.41 kg Body Mass Index (BMI) 37.5 Laboratory Tests Past 24 Hrs WBC 0.6 L* RBC 4.04 L Hgb 10.1 L Hct 32.1 L WBC RBC Hgb Hct MCV WBC RBC Hgb Hct MCV MCH WBC 1.5 L RBC 3.91 L - Other Studies Radiology: [] reviewed Other Studies: [] Route of nutrition/ use of supplements: [] Nutritional Intake: [] IV Site: [] Jj Catheter: [] - Physical Exam General: Alert, Oriented x3, Cooperative, No apparent distress HEENT: Atraumatic, PERRLA, EOMI Neck: Supple, No Nodes Lungs: Clear to auscultation, Normal air movement Cardiovascular: Regular rate, Regular Rhythm Abdomen: Soft, Non Tender, Non-Distended Extremities: No edema Skin: No rashes, Ulcer/ Wound - appears clean IV Site: PICC, without redness Musculoskeletal: No Tenderness to Palpation of Joints or Extremities Neurological: Cranial nerves II-XII grossly intact - Assessment/Plan Antibiotics: [] Assessment/Plan: [] Active and Suspected Problems (Last Reviewed 05/10/18 @ 21:13 by Bucky Vega MD) Drug induced fever (Acute) Pancytopenia with fever (Acute) Pancytopenia (Acute) Pseudomonas aeruginosa infection (Acute) Non-pressure chronic ulcer of skin of other sites with fat layer exposed (Acute) Open wound of right chest wall with complication (Acute) Pancytopenia with fever - concern for drug reaction. Has been on vanc/cefepime/cipro. Wound appears to be healing well, but is at risk for surg site infection as well as picc-related bacteremia. Wound cx sent. MRSA pcr was neg. Cover with dapto and meropenem for now. If bcx are neg, plan on stopping dapto tomorrow. I consulted heme, appreciate their eval. Will follow, thank you, d/w primary team. 05/11/18 1412 <Electronically signed by Emory Flannery MD> Date Emory Flannery MD Cosigner Signature (if applicable): Date CC: Romelia Morris MD; Dario Clifton DO; Emory Flannery MD; Cassandra Balderas NP Signed MRSA WOUND DNA BY Collected: 05/11/2018 Status: F Source: [place] PCR 9:35 AM [facility] REPOSITORY TYPE CODE TESTS RESULT OUT OF RANGE REFERENCE UNITS LAB L8200.1100 Negative Normal MRSA Negative RESULT LAB L8200.1150 Negative Normal SA RESULT NEGATIVE Performed By: #### L8200.1075 #### [facility] [address] [place], [address] Observed: 05/11/2018 Status: F Source: [place] CULTURE, DEEP WOUND 9:35 AM [facility] REPOSITORY Gram Stain Gram Stain Rare Red Blood Cells Rare White Blood Cells No organisms seen Wound Culture No growth aerobically. Cult, Anaerobic No growth in 5 days. Performed By: #### M100.1500 #### [facility] [address] [place], [address] CBC-COMPLETE BLOOD CNT Collected: 05/11/2018 Status: C Source: [place] NO DIFF 5:20 AM [facility] REPOSITORY TYPE CODE TESTS RESULT OUT OF RANGE REFERENCE UNITS LAB L100.1000 4.4-11.0 K/mm3 Low WBC 1.5 Result Comment: CRITICAL VALUE VERIFIED. CALLED TO OLMANRN PCU 05/11/18 0607 Mana Moscoso. RESULTS READ BACK BY SAME . LAB L100.1200 4.2-5.4 M/mm3 Low 3.91 RBC LAB L100.1300 12.0-15.0 g/dl Low 10.0 HGB LAB L100.1400 37-47 % Low 31.1 HCT LAB L100.1500 81-99 fL Low 79.5 MCV LAB L100.1600 27.0-32.0 pg Low 25.6 MCH LAB L100.1700 32-36 g/gl Normal 32.2 MCHC LAB L100.1810 11.6-14.6 % Normal 13.6 RDW CV LAB L100.1820 35.1-43.9 fl Normal 38.9 RDW SD LAB L100.1900 150-450 K/mm3 Low 129 PLT LAB L100.2000 6.2-12.0 fl Normal 11.4 MPV LAB L100.9900 Normal Reviewed PATH REV Result Comment: Pancytopenia. Blasts are not seen. Clinical correlation necessary. This case is discussed with Cassandra Balderas. Winston Muller M.D. 05/11/18 AMENDED REPORT 05/11/18 1308 PATH REV previously reported as: December Performed By: #### L100.0500, L100.4500 #### [facility] [address] [place], [address] DIFFERENTIAL COMMENT Collected: 05/11/2018 Status: F Source: [place] 5:20 AM [facility] REPOSITORY TYPE CODE TESTS RESULT OUT OF RANGE REFERENCE UNITS LAB L100.4500 Normal SMEAR COMMENT Result Comment: LEUKOCYTOPENIA NOTED NEUTROPENIA NOTED Performed By: #### L100.0500, L100.4500 #### [facility] [address] [place], [address] HOMOCYSTEINE Collected: 05/11/2018 Status: F Source: [place] 5:20 AM [facility] REPOSITORY TYPE CODE TESTS RESULT OUT OF REFERENCE UNITS RANGE LAB L503.8001 3.2-10.7 umol/L HOMOCYSTEINE Normal 6.3 Performed By: #### L503.8001 #### [facility] [address] [place], [address] BASIC METABOLIC Collected: 05/11/2018 Status: F Source: [place] PROFILE (BMP) 5:20 AM [facility] REPOSITORY Order Comment: Is Patient Taking Vitamins or Folic Acid Supplements? N TYPE CODE TESTS RESULT OUT OF RANGE REFERENCE UNITS LAB L501.0100 74-106 mg/dL Normal GLU 84 Result Comment: Please note revised GLUCOSE reference range effective 2017. LAB L501.1000 7-18 mg/dL Low BUN 5 LAB L501.1100 0.55-1.02 mg/dL Low CREAT,SERUM 0.50 Result Comment: The validity of the calculated GFR AND GFRAA in patients over 70 years has not been determined. Clinical correlation is essential. LAB L501.1110 >60 mL/min Normal EST GFR 159 Result Comment: Non- GFR Calc LAB L501.1115 >60 mL/min Normal EST GFR - AA 192 Result Comment: GFR Calc LAB L501.1255 ml/min Normal Estimated CRCL 161.02 LAB L501.1300 10-20 RATIO BUN/CRE Normal 10.0 LAB L501.2200 8.5-10 mg/dL Low .1 CA 8.4 LAB L501.5300 136-14 mmol/L 5 NA Normal 141 LAB L501.5600 3.5-5. mmol/L Low 1 K 3.4 LAB L501.5900 98-107 mmol/L CL Normal 107 LAB L501.6100 21.0-3 mmol/L 2.0 CO2 Normal 24.0 LAB L501.6200 5-15 GAP Normal 10 Performed By: #### L500.2500, L506.0250 #### [facility] [address] [facility] [place], [address] FOLATES, (FOLIC ACID) Collected: 05/11/2018 Status: F Source: [place] 5:20 AM [facility] REPOSITORY Order Comment: Is Patient Taking Vitamins or Folic Acid Supplements? N TYPE CODE TESTS RESULT OUT OF RANGE REFERENCE UNITS LAB L506.0250 3.1-55.4 ng/mL Normal FOLATES 15.30 Performed By: #### L500.2500, L506.0250 #### [facility] [address] [facility] [place], [address] VITAMIN B12 Collected: 05/11/2018 Status: F Source: [place] 5:20 AM [facility] REPOSITORY TYPE CODE TESTS RESULT OUT OF RANGE REFERENCE UNITS LAB L503.0105 211-911 pg/mL Normal Vitamin B12 419 Performed By: #### L503.0105 #### [facility] [address] [facility] [place], [address] LIVER PROFILE Collected: 05/11/2018 Status: F Source: [place] 5:20 AM [facility] REPOSITORY Order Comment: Comments: add on to am labs, please TYPE CODE TESTS RESULT OUT OF RANGE REFERENCE UNITS LAB L501.1500 6.4-8.2 g/dL Normal T PROT 7.2 LAB L501.1800 3.2-5.0 g/dL Normal ALB 3.3 LAB L501.1950 2.2-4.2 g/dL Normal GLOB 3.9 LAB L501.4100 15-37 U/L Normal AST 32 LAB L501.4305 45-117 U/L Normal ALK P 63 LAB L501.4405 13-56 U/L Normal ALT 26 LAB L501.4600 0.20-1.00 mg/dL Normal T BILI 0.30 LAB L501.4700 0.00-0.30 mg/dL Normal D BILI 0.08 Performed By: #### L500.3400 #### [facility] [address] [place], [address] VANCOMYCIN, RANDOM Collected: 05/11/2018 Status: F Source: [place] LEVEL 5:20 AM [facility] REPOSITORY Order Comment: USE REDTOP FROM TUBE IO1 FROM AM LABS SINCE ITS JUST A RANDOM VANCO. TYPE CODE TESTS RESULT OUT OF RANGE REFERENCE UNITS LAB L501.8850 0.0-15.0 ug/mL Normal VANCO, RANDOM 4.6 Result Comment: VANCOMYCIN STANDARD DRUG THERAPY: CRITICAL VALUE IS > 15.0 mg/L VANCOMYCIN HIGH INTENSITY THERAPY: CRITICAL VALUE IS > 20.0 mg/L PLEASE CONTACT PHARMACY SERVICES (#[id number]) FOR INTERPRETATION OF RESULTS. THIS RESULT DOES NOT REPRESENT A PEAK OR TROUGH LEVEL FOR THIS DRUG. Performed By: #### L501.8850 #### [facility] [address] [place], [address] CBC W/DIFF, AUTOMATED Collected: 05/11/2018 Status: F Source: [place] 5:20 AM [facility] REPOSITORY Order Comment: Comments: from 05/11/18 CBC- add diff only Comments: from 05/11/18 CBC REFER TO H30 FROM 05/11 FOR COMPLETE PATHOLOGY COMMENTS TYPE CODE TESTS RESULT OUT OF RANGE REFERENCE UNITS LAB L100.1000 4.4-11.0 K/mm3 Low WBC 1.5 LAB L100.1200 4.2-5.4 M/mm3 Low RBC 3.91 LAB L100.1300 12.0-15.0 g/dl Low HGB 10.0 LAB L100.1400 37-47 % Low HCT 31.1 LAB L100.1500 81-99 fL Low MCV 79.5 LAB L100.1600 27.0-32.0 pg Low MCH 25.6 LAB L100.1700 32-36 g/gl Normal MCHC 32.2 LAB L100.1810 11.6-14.6 % Normal RDW CV 13.6 LAB L100.1820 35.1-43.9 fl Normal RDW SD 38.9 LAB L100.1900 150-450 K/mm3 Low PLT 129 LAB L100.2000 6.2-12.0 fl Normal MPV 11.4 LAB L100.2100 47-70 % Low NEUT% 1.3 LAB L100.2200 19-41 % High LY% 67.6 LAB L100.2300 0-10 % High MONO% 27.7 LAB L100.2400 0-5 % Normal EO% 2.7 LAB L100.2500 0-1 % Normal BASO% 0.7 LAB L100.2550 0.0-0.9 % Normal IM GRAN % 0.000 Result Comment: IG% - Immature Granulocytes (promyelocytes, myelocytes and metamyelocytes) > 1% indicates that a LEFT SHIFT is Present. LAB L100.2620 2.0-7.7 X10 3/uL Low Absolute Neut 0.0 LAB L100.2720 0.83-4.51 X10 3/ul Normal Absolute Lymph 1.00 Performed By: #### L100.0100, L100.9950 #### [facility] [address] [facility] [place], [address] RETIC PANEL Collected: 05/11/2018 Status: F Source: [place] 5:20 AM [facility] REPOSITORY Order Comment: Comments: from 05/11/18 CBC- add diff only Comments: from 05/11/18 CBC REFER TO H30 FROM 05/11 FOR COMPLETE PATHOLOGY COMMENTS TYPE CODE TESTS RESULT OUT OF RANGE REFERENCE UNITS LAB L101.0000 0.5-1.5 % Normal RETIC 0.92 LAB L101.0060 3.00-15.90 % IM Normal RET FRACTION 5.10 LAB L101.0090 30-35 pg Low RET-HE 21.0 LAB L101.0110 1.0-7.9 % Normal IPF 6.2 Result Comment: Low PLT + Low IPF suggest a bone marrow production disorder Low PLT + high IPF suggests peripheral destruction (e.g.ITP, TTP, HIT, DIC, autoimmune) or bone marrow recovery Trending of serial IPF measurements is recommended when evaluating for bone marrow respones Value above normal range indicates an increase in RBC cellular response from bone marrow. Performed By: #### L100.0100, L100.9950 #### [facility] [address] [place], [address] IRON+IRON BINDING Collected: 05/11/2018 Status: F Source: [facility] 5:20 AM [facility] REPOSITORY Order Comment: Comments: from draw 05/11/18 am Comments: from draw 05/11/18 am TYPE CODE TESTS RESULT OUT OF RANGE REFERENCE UNITS LAB L503.6075 250-450 ug/dL TIBC Normal 356 LAB L503.6150 50-170 ug/dL Low IRON 18 LAB L503.6250 15.0-55.0 % Low IRON SATURATION 5.1 Performed By: #### L503.6030, L503.6550 #### [facility] [address] [place], [address] FERRITIN Collected: 05/11/2018 Status: F Source: [place] 5:20 AM [facility] REPOSITORY Order Comment: Comments: from draw 05/11/18 am Comments: from draw 05/11/18 am TYPE CODE TESTS RESULT OUT OF RANGE REFERENCE UNITS LAB L503.6550 8-252 ng/mL Normal FERRITIN 42 Performed By: #### L503.6030, L503.6550 #### [facility] [address] [place], [address] METHYLMALONIC ACID BLD Collected: 05/11/2018 Status: F Source: [place] 5:20 AM [facility] REPOSITORY TYPE CODE TESTS RESULT OUT OF RANGE REFERENCE UNITS LAB L7400.3000 Normal METHYLM [id number] Result Comment: TEST RESULT LIMITS Methylmalonic Acid, Serum Methylmalonic Acid, Serum 55 nmol/L 0 - 378 Disclaimer: This test was developed and its performance characteristics determined by [employer]. It has not been cleared or approved by the Food and Drug Administration. TESTING PERFORMED AT [facility]. ORIGINAL REPORT ON FILE IN LAB CONTAINS ADDITIONAL TEST SITE INFORMATION. Performed By: #### L7400.3000 #### [facility] (refer to report for specific site) refer to report for address and phone number URINE POTASSIUM Collected: 05/11/2018 Status: F Source: [place] 5:05 AM [facility] REPOSITORY TYPE CODE TESTS RESULT OUT OF RANGE REFERENCE UNITS LAB L501.5800 Not Establ. mmol/L Normal UR K 19.0 Performed By: #### L501.5800 #### [facility] [address] [facility] [place], [address] HISTORY AND PHYSICAL Observed: 05/11/2018 Status: F Source: [place] EXAM 4:19 AM [facility] REPOSITORY [facility] Medical Records Department [address] [place] [address] History and Physical 05/10/18 1913 MR#: [id number] Acct: [id number] Name: FRANKY SALGUEROGABI Pruett Rep #: [id number] : 1995 23 From: Bucky Vega MD PCP: Dario Clifton DO Status: ADM IN Location: [place] [address] Problem List (1) Drug induced fever Status: Acute (2) Pancytopenia with fever Status: Acute (3) Pancytopenia Status: Acute (4) Open wound of right chest wall with complication Status: Acute History of Present Illness Date of Admission: 05/10/18 Chief Complaint: fever The patient is a 23 year old F with a significant history of depression, anxiety; right armpit wound who presents with persistent fever x 1 day. As stated above patient has a history of right lateral chest wound that she follows up with Dr. Morris. Patient reported that initially the wound started as a pimple some time in February 2018. Ever since,patient has had wound VAC and 2 surgical drainage/debridement with Dr. Morris. In the past her wound has been positive for MRSA. In the past she has had wound VAC and a tube drainage to this wound. She follows up with the wound center. She had debridement of the wound at our wound center a day before this admission. Outpatient, she is on vancomycin, Ciprofloxacin and cefepime that she gets through her PICC line. She had a maximal temperature of 101.9 while at home. Because of the persistence of her fever she called Dr. Cummins's office and she was instructed to come to the emergency department. At the Emergency department; she was found to have a temperature of 101.0. Her lab work was significant for significant pancytopenia. Past Medical History Past Medical History (Chronic Problems): Chronic Problems (Last Reviewed 05/10/18 @ 21:13 by Bucky Vega MD) BMI 38.0-38.9,adult (Chronic) Depression (Chronic) Medical History: Medical History (Last Reviewed 05/10/18 @ 21:13 by Bucky Vega MD) Anxiety and depression F41.9, F32.9 Back problem M53.9 Gallstones K80.20 Kidney stones N20.0 Allergies No Known Allergies Allergy (Verified 05/10/18 16:31) Home Medications: Ambulatory Orders Medication Instructions Recorded Oxycodone HCl/Acetaminophen 1 - 2 tab PO 4X/DAY PRN PRN 7 Days 04/25/18 [Percocet 5-325] #50 tab diazepam 5 mg tablet 5 mg PO 4X/DAY PRN #30 tab 05/09/18 Surgical History: Surgical History (Last Reviewed 05/10/18 @ 21:13 by Bucky Vega MD) History of appendectomy Z90.49 History of back surgery Z98.890 2006 History of tubal ligation Z98.51 Surgical History: appendectomy, - - Tubal ligation, back surgery for scoliosis Psychiatric History: No pertinent psych hx GUEST RELATIONS RECEPTIONIST History: No pertinent GUEST RELATIONS RECEPTIONIST history Lives: With Family Smoking Status: Never smoker Alcohol: None - *Family History Maternal Family History: Family History (Last Reviewed 05/10/18 @ 21:13 by Bucky Vega MD) Mother Diabetes Hypertension Father Hypertension Grandmother Diabetes History Items: No pertinent history Paternal Family History: Family History (Last Reviewed 05/10/18 @ 21:13 by Bucky Vega MD) Mother Diabetes Hypertension Father Hypertension Grandmother Diabetes History Items: No pertinent history Review of Systems Constitutional: Reports: Chills, Fever. Denies: Fatigue Eyes: Denies: Blurred vision, Pain HEENT: Denies: Difficulty Hearing, Head Aches Cardiovascular: Denies: Chest Pain Respiratory: Denies: Cough, Shortness of breath at rest, Sputum production Gastrointestinal: Denies: Abdominal Pain, Nausea, Vomiting Genitourinary: Denies: Dysuria Musculoskeletal: Denies: Joint Pain, Joint Tenderness Skin: Denies: Rash, Wounds Neurological: Denies: Numbness, Tingling, Focal weakness Psychiatric: Reports: Anxiety - Controlled with medication, Depression - Controlled with medication. 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 Color skin is pinkish with little discharges of portillo color. Mild scales and mild erythema surrounding wound. No increased warmth. No swelling around wound. Musculoskeletal: No Tenderness to Palpation of Joints or Extremities Lymphatic: No Cervical, Supraclavicular, or Inguinal Adenopathy Neurological: Cranial nerves II-XII grossly intact Psych/Mental Status: Normal Affect, Appropriate Vital Signs Temp Pulse Resp BP Pulse Ox 101.0 F H 89 16 160/113 H 99 05/10/18 16:28 05/10/18 16:28 05/10/18 16:28 05/10/18 16:28 05/10/18 16:28 Oxygen Delivery Method Room Air Weight: 106.3 kg Body Mass Index (BMI) 37.8 Laboratory Tests Past 24 Hrs WBC 0.6 L* RBC 4.04 L Hgb 10.1 L Hct 32.1 L MCV 79.5 L MCH 25.0 L MCHC 31.5 L RDW 13.7 RDW Differential 39.5 Assessment/Plan All Active Problems (Last Reviewed 05/10/18 @ 21:13 by Bucky Vega MD) Drug induced fever (Acute) Pancytopenia with fever (Acute) Pancytopenia (Acute) Pseudomonas aeruginosa infection (Acute) Non-pressure chronic ulcer of skin of other sites with fat layer exposed (Acute) Open wound of right chest wall with complication (Acute) Cellulitis of right breast (Acute) Cellulitis of chest wall (Acute) Abscess of chest wall (Acute) Cellulitis and abscess of other specified site (Acute) MRSA (methicillin resistant Staphylococcus aureus) infection (Acute) Abscess of right breast (Ruled-out) Acute pyelonephritis (Resolved) The patient is a 23 year old F with a significant history of depression, anxiety; right chest wound with MRSA; and who follows up with the wound center and presenting with 1 day history of fever and also found to have severe pancytopenia. Probable drug fever Reported temperature of 101.9; and 101 at emergency department. Patient on multiple antibiotics at home. Patient with a PICC line and wound. Due to concern of drug fever will hold vancomycin at this time. In exchange with vancomycin we will start daptomycin; and consult infectious disease for further recommendations. Continue ciprofloxacin and cefepime. Blood cultures x2 are pending Other differential diagnosis of her fever includes wound infection or bacteremia(especially as patient has a PICC). Pancytopenia likely due to antibiotics ED labs including a CBC and BMP were reviewed. WBC was 0.6; hemoglobin 10.1 and platelets 104. Absolute neutrophils was 100. Vancomycin changed as above. Daptomycin started. Continue ciprofloxacin and cefepime. Other differential diagnosis includes bacteremia, especially as patient has a PICC line; and wound infection. Peripheral smear ordered. Trend CBC. Tylenol as needed for fever. Infectious disease consult. Right lateral Chest wound proximal to right axillary region The wound does not look acutely infected., However she had debridement only yesterday. Review of old records shows that culture taken on abscess of right lateral chest on 04/18/2018 grew Pseudomonas aeruginosa. Review of old records shows that culture taken on abscess of right lateral chest/lateral breast abscess on 02/22/2018 grew MRSA Antibiotics as above. Patient is very familiar with Dr. Morris; will consult Dr. Morris Wound care consult. Home as needed oxycodone continued. Toradol ordered. Since patient's pain is not controlled with oxycodone, Toradol, Tylenol and reportedly morphine given at emergency department did not help her; as needed Dilaudid ordered. Elevated blood pressure without diagnosis of hypertension. At emergency department her blood pressure was severely elevated at 160/113 This could be secondary to pain. Hydralazine as needed ordered. Hypokalemia On admission potassium was 2.8. Patient was given 60 mEq potassium at emergency department Repeat BMP in a.m. Magnesium level and urine potassium ordered. Hypocalcemia On admission her calcium was 8.1. Mild hypocalcemia Albumin ordered. Depression/anxiety Diazepam and Wellbutrin continued DVT prophylaxis SCD ordered. Chemoprophylaxis not started because of thrombocytopenia. Code Visit Inpatient E AND M: 13737 Init Hosp L3 05/11/18 0419 <Electronically signed by Bucky Vega MD> Date Bucky Vega MD Cosigner Signature: Date (if applicable) CC: Dario Clifton DO; Bucky Vega MD Signed EMERGENCY DEPARTMENT Observed: 05/10/2018 Status: F Source: [place] SUMMARY 11:23 PM [facility] REPOSITORY [facility] Medical Records Department [address] [place] [address] Emergency Department Summary 05/10/18 1648 MR#: [id number] Acct: [id number] Name: SANTIAGO SALGUERO Rep #: [id number] : 1995 23 From: Jagdish Valdivia MD PCP: Dario Clifton DO Status: ADM IN - ER Visit Summary Date of Service: 05/10/18 Chief Complaint: Fever History of Present Illness: The patient is a 23 F treated for an MRSA abscess in her right axilla that was formal surgical resection and debridement by Dr. osvaldo Lebron x2. She is also had a prior drain in place. Currently the patient is on 3 different antibiotics including vancomycin, cefepime and Cipro IV. She is a left arm PICC line. Currently she is under the care of Dr. osvaldo Lebron of plastic surgery and the wound care center. She states today she had a fever and possibly a fever subjectively for the last few days. She was told by Dr. osvaldo Lebron his nurse practitioner to come to the ER to be evaluated. Physical Examination: Young female no acute distress. Vital signs are stable she does have a fever of 101. She does not look septic or toxic. She is in no acute distress. H EENT exam is unremarkable. Moist wheeze membranes. Neck nontender no lymphadenopathy. Lungs clear to auscultation bilaterally. Heart regular rhythm no murmur. Rate about 90. Abdomen is soft and nontender. Normal bowel sounds no peritoneal signs. She is moving all 4 extremities. They are neurovascularly intact. Left upper extremity has a PICC line. Calves are nontender without edema or cords. Back exam nontender. Neurologically she is awake and alert with no focal motor deficits. Her right flank along the right upper rib cage just below her armpit on the right is a large open wound. It several inches in length by at least an inch in width. It involves the skin and subcu tissue. Currently there is no purulent discharge or drainage. It is not bleeding. There is redness and warmth around the room consistent with cellulitis and some of this is secondary to irritation of the skin from the dressing. It was packed. And there is an Kavitha wrap around it. Skin is very dry and flaking. Test Results: CBC shows a white count of 0.6. Previously her white counts were 6. She has a hemoglobin of 10 and platelet count of 104,000. This is all new onset pancytopenia. Her signal neutrophils are only 9%. Is obviously immunocompromised. Electrolytes are unremarkable except for potassium of 2.8. Normal gap. Normal creatinine. Blood cultures will be added. Emergency Department Course and Treatment: I will speak to the hospitalist acquisitions librarian. I did already speak to Dr. Romelia Morris her plastic surgeon. She will need to be admitted and worked up for the pancytopenia also the new onset fever and cellulitis around the prior wound that she is been being treated for. Treatment Plan: [] Disposition: Admission Impression: Status post right axillary MRSA abscess with formal surgical drainage and debridement x2. Fever with cellulitis around the wound New onset pancytopenia Immunocompromised This note was generated with [employer] dictation software. It may contain incorrect words, spelling, and punctuation that were not noted in review of the chart prior to signing ED Disposition - Plan for ED Patient: Chief Complaint: Wound Check Referrals: Dario Poe DO [Primary Care Provider] - What to do if you have Problems For any increased pain, shortness of breath, bleeding, nausea or vomiting, chest pain, or any unexpected problems, contact your Primary Care Provider. Call [facility] ([phone]) or report to the closest Emergency Room. Call 911 if necessary. 05/10/18 5523 <Electronically signed by Jagdish Valdivia MD> Date Jagdish Valdivia MD Cosigner Signature (If Indicated): Date CC: Dario Clifton DO Observed: 05/10/2018 Status: F Source: [place] CULTURE, BLOOD (WB) 7:40 PM [facility] REPOSITORY No growth in 5 days. Performed By: #### M200.1000 #### [facility] [place], [id number] Observed: 05/10/2018 Status: F Source: [place] CULTURE, BLOOD (WB) 7:30 PM [facility] REPOSITORY BC No growth in 5 days. Performed By: #### M200.1000 #### [facility] [address] [place], [id number] CBC W/DIFF, AUTOMATED Collected: 05/10/2018 Status: C Source: [place] 6:05 PM [facility] REPOSITORY TYPE CODE TESTS RESULT OUT OF RANGE REFERENCE UNITS LAB L100.1000 4.4-11.0 K/mm3 Low alert WBC 0.6 Result Comment: CRITICAL VALUE VERIFIED. [facility] 05/10/18 FrancoJosephine Lennie Hernandez. RESULTS READ BACK BY SAME . LAB L100.1200 4.2-5.4 M/mm3 Low RBC 4.04 LAB L100.1300 12.0-15.0 g/dl Low HGB 10.1 LAB L100.1400 37-47 % Low HCT 32.1 LAB L100.1500 81-99 fL Low MCV 79.5 LAB L100.1600 27.0-32.0 pg Low MCH 25.0 LAB L100.1700 32-36 g/gl Low MCHC 31.5 LAB L100.1810 11.6-14.6 % Normal RDW 13.7 CV LAB L100.1820 35.1-43.9 fl Normal RDW 39.5 SD LAB L100.1900 150-450 K/mm3 Low PLT 104 LAB L100.2000 6.2-12.0 fl Normal MPV 10.7 LAB L100.2100 47-70 % Low NEUT% 9.1 LAB L100.2200 19-41 % High LY% 61.8 LAB L100.2300 0-10 % High MONO% 27.3 LAB L100.2400 0-5 % Normal EO% 1.8 LAB L100.2500 0-1 % Normal BASO% 0.0 LAB L100.2550 0.0-0.9 % Normal IM 0.000 GRAN % Result Comment: IG% - Immature Granulocytes (promyelocytes, myelocytes and metamyelocytes) > 1% indicates that a LEFT SHIFT is Present. LAB L100.2620 2.0-7.7 X10 3/uL Low Absolute Neut 0.1 LAB L100.2720 0.83-4.51 X10 3/ul Low Absolute Lymph 0.34 LAB L100.4500 Normal SMEAR COMMENT SCANNED Result Comment: NEUTROPENIA NOTED LYMPHOPENIA NOTED LEUKOCYTOPENIA NOTED LAB L100.9900 Normal Reviewed PATH REV Result Comment: Pancytopenia. Clinical correlation necessary. Winston Muller M.D. 05/11/18 AMENDED REPORT 05/11/18 1307 PATH REV previously reported as: December irina Performed By: #### L100.0100 #### [facility] [address] [place], [place], [address] BASIC METABOLIC Collected: 05/10/2018 Status: F Source: [place] PROFILE (BMP) 6:05 PM [facility] REPOSITORY TYPE CODE TESTS RESULT OUT OF RANGE REFERENCE UNITS LAB L501.0100 74-106 mg/dL Normal GLU 86 Result Comment: Please note revised GLUCOSE reference range effective 2017. LAB L501.1000 7-18 mg/dL Low BUN 4 LAB L501.1100 0.55-1.02 mg/dL Normal CREAT,SERUM 0.74 Result Comment: The validity of the calculated GFR AND GFRAA in patients over 70 years has not been determined. Clinical correlation is essential. LAB L501.1110 >60 mL/min Normal EST GFR 102 Result Comment: Non- GFR Calc LAB L501.1115 >60 mL/min Normal EST GFR - AA 123 Result Comment: GFR Calc LAB L501.1255 ml/min Normal Estimated CRCL 108.79 LAB L501.1300 10-20 RATIO Low BUN/CRE 5.4 LAB L501.2200 8.5-10 mg/dL Low .1 CA 8.1 LAB L501.5300 136-14 mmol/L 5 NA Normal 137 LAB L501.5600 3.5-5. mmol/L Low 1 K 2.8 LAB L501.5900 98-107 mmol/L CL Normal 104 LAB L501.6100 21.0-3 mmol/L 2.0 CO2 Normal 25.0 LAB L501.6200 5-15 GAP Normal 8 Performed By: #### L500.2500 #### [facility] [address] [place], [address] MAGNESIUM Collected: 05/10/2018 Status: F Source: [place] 6:05 PM [facility] REPOSITORY Order Comment: Comments: specimen in lab TYPE CODE TESTS RESULT OUT OF RANGE REFERENCE UNITS LAB L501.5200 1.6-2.6 mg/dL Normal MG 1.7 Performed By: #### L501.5200 #### [facility] [address] [facility]. [place], [place], [address] ALBUMIN, SERUM Collected: 05/10/2018 Status: F Source: [place] 6:05 PM [facility] REPOSITORY Order Comment: Comments: SPECIMEN IN LAB TYPE CODE TESTS RESULT OUT OF RANGE REFERENCE UNITS LAB L501.1800 3.2-5.0 g/dL Normal ALB 3.5 Performed By: #### L501.1800 #### [facility] [address] [facility] [place], [address] COMP METABOLIC PANEL Collected: 04/27/2018 Status: F Source: [employer] 1:15 PM SYSTEM REPOSITORY TYPE CODE TESTS RESULT OUT OF RANGE REFERENCE UNITS LAB NA3 137-145 mmol/L Sodium Normal 140 LAB K3 3.5-5.1 mmol/L Normal Potassium 3.5 LAB CL3 98-107 mmol/L High Chloride 111 LAB CO23 22-30 mmol/L Low Carbon Dioxide 21 LAB ANIN3 NA Anion Gap 8 LAB GLUC3 70-100 mg/dL Low Glucose 51 LAB BUN3 7-20 mg/dL Urea Normal Nitrogen 8 LAB CRET3 0.52-1.25 mg/dL Normal Creatinine 0.52 LAB GF3BR >60 mL/min eGFR > 60.0 LAB GF3WR >60 mL/min eGFR OTHER > 60.0 Result Comment: Source- MDRD equation with creatinine calibration to IDMS(NKDEP) eGFR not recommended for drug dose adjustment LAB CA3 8.4-10.4 mg/dL Calcium Normal 8.4 LAB ALB3 3.5-5.0 g/dL Low Albumin, Serum 3.4 LAB TP3 6.3-8.2 g/dL Total Protein Normal 6.4 LAB BILT3 0.2-1.3 mg/dL Normal Bilirubin,Total 0.2 LAB ALKP3 38-126 U/L Alkaline Normal Phosphatase 61 LAB ALT3 13-69 U/L ALT (SGPT) Normal 31 LAB AST3 15-46 U/L AST (SGOT) Normal 31 Performed By: #### CMP3, CRP2, HEMDF, ESR #### [facility] [place] [address] #### VANCT #### [facility] [address] [place] [phone] C-REACTIVE PROTEIN Collected: 04/27/2018 Status: F Source: [employer] 1:15 PM SYSTEM REPOSITORY TYPE CODE TESTS RESULT OUT OF REFERENCE UNITS RANGE LAB 2CRP 0.0-6.0 mg/L High C-Reactive 11.4 Protein Result Comment: . Performed By: #### CMP3, CRP2, HEMDF, ESR #### [facility] [place] [address] #### VANCT #### [facility] [address] [place] [phone] HEMOGRAM W/ AUTODIFF Collected: 04/27/2018 Status: F Source: [employer] 1:15 PM SYSTEM REPOSITORY TYPE CODE TESTS RESULT OUT OF REFERENCE UNITS RANGE LAB IWBC 3.6-10.7 10*3/uL WBC Normal 5.1 LAB RBC 3.80-5.20 10*6/uL Low RBC 3.77 LAB HGB 11.7-16.0 g/dL Low Hemoglobin 9.9 LAB HCT 35.0-47.0 % Low Hematocrit 30.1 LAB MCV 79.0-98.0 fL MCV Normal 79.8 LAB MCH 26.0-34.0 pg MCH Normal 26.3 LAB MCHC 32.0-36.0 % MCHC Normal 32.9 LAB RDW 11.5-14.5 % RDW Normal 14.1 LAB PLT 140-440 10*3/uL Platelet Normal 178 LAB MPV 7.4-10.4 fL MPV Normal 9.7 LAB GRAN% 40.0-80.0 % Granulocytes Normal 58.2 LAB LYMP% 20.0-40.0 % Lymphocytes Normal 28.7 LAB MONO% 2.0-10.0 % Monocytes Normal 9.1 LAB EOS% 1.0-6.0 % Eosinophils Normal 3.7 LAB BAS% 0.0-2.0 % Basophils Normal 0.3 LAB ANC 1.8-7.0 10*3/uL Abs Normal Neutrophile Cnt 3.0 LAB ALC 1.0-4.3 10*3/uL Abs Lymph Cnt Normal 1.5 LAB AMC 0.0-0.8 10*3/uL Abs Monocyte Normal Cnt 0.5 LAB AEC 0.0-0.5 10*3/uL Abs Eosin Cnt Normal 0.2 LAB ABC 0.0-0.2 10*3/uL Abs Baso Cnt Normal 0.0 Performed By: #### CMP3, CRP2, HEMDF, ESR #### [facility] [place] [address] #### VANCT #### [facility] [address] [place] [address] SED RATE Collected: 04/27/2018 Status: F Source: [employer] 1:15 PM SYSTEM REPOSITORY TYPE CODE TESTS RESULT OUT OF RANGE REFERENCE UNITS LAB ESR 0-20 mm/h High Sed Rate 28 Performed By: #### CMP3, CRP2, HEMDF, ESR #### [facility] [address] [place] [id number] #### VANCT #### [facility] [address] [place] [phone] VANCOMYCIN TROUGH Collected: 04/27/2018 Status: F Source: [employer] 1:15 PM SYSTEM REPOSITORY TYPE CODE TESTS RESULT OUT OF REFERENCE UNITS RANGE LAB VNCT 15.0-20.0 ug/mL Low Vancomycin 5.2 Trough Result Comment: . Performed By: #### CMP3, CRP2, HEMDF, ESR #### [facility] [address] [place] [address] #### VANCT #### [facility] [address] [place] [phone] OPERATIVE REPORT Observed: 04/25/2018 Status: F Source: [facility] 12:07 AM [facility] REPOSITORY [facility] Medical Records Department [address] [place] [address] Operative Report 04/18/18 1813 MR#: [id number] Acct: [id number] Name: SANTIAGO SALGUERO Rep #: [id number] : 1995 23 From: Romelia Morris MD PCP: Dario Clifton, DO Status: DIS IN Y Location: MS2 [id number] Report of Operation Date of Procedure: 04/18/18 Pre-Operative Diagnosis: 1. Pseudomonas abscess right lateral chest wall. 2. MRSA. 3. s/p surgical preparation right lateral chest wall with excision nonhealing painful MRSA ulcer and 10 cm complex secondary wound closure. Post-Operative Diagnosis: Same. Surgery/Procedure Performed:: Surgical preparation right lateral chest wall with incision and drainage and excisional debridement Pseudomonas abscess (40 cm2). Description of Surgical Findings:: On April 05, 2018, patient underwent surgical preparation right lateral chest wall with excision nonhealing painful MRSA ulcer and 10 cm complex secondary wound closure. Initial culture screen showed MRSA and she was discharged on Doxycycline. Further culture result showed Pseudomonas. Ciprofloxacin was added. Today she came to the office complaining of her incision opening up with drainage. On exam, the central portion of the incision opened up. The wound measured 6 x 1.5 cm. There was surrounding redness and increased pain. Patient denied any fever. She did complain of feeling rundown and fatigued. With the complexity of the wound and the nature of the organisms present in the wound, the patient has failed outpatient antibiotic therapy. It was recommended to the patient to be admitted to the hospital for more aggressive wound care with daily Silver dressing changes. Also will start IV antibiotics with Vancomycin, Zosyn, and Levaquin. A PICC line was placed. The wound has increased in size with the daily Silver dressing changes indicative of Pseudomonas tissue damage. Recommend to proceed with operative intervention to stabilize the wound. Will start wound care after surgery with the VAC. Patient was informed of the risks and complications of the procedure including alternatives to surgery. These were discussed with the patient personally. Patient voices understanding and wishes to proceed. Size of defect right lateral chest wall - 10 x 4 x 5 cm. 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 Pseudomonas abscess right lateral chest wall to Pathology and Microbiology. 2. MRSA Wound DNA by PCR. Drains: None. Estimated Blood Loss (mL): 50 ml. Description of Procedure: Patient was taken to OR in supine position and was placed under general anesthesia. The right lateral chest wall was prepped and draped in the usual fashion. SCD's were placed for DVT prophylaxis. Perioperative antibiotics were given intravenously. Using xylocaine with epinephrine, the right lateral chest wall was infiltrated. After waiting 5 minutes for the anesthetic to take effect, I removed the remaining sutures that remained after the Pseudomonas destruction. Further incision was done to get exposure down to the chest wall and musculature. A lot of fat necrosis was present. A lot of abnormal granulation tissue was present. Minimal pus was seen. A curette was used to sharply debride the abnormal granulation tissue off the muscle. Muscle appeared viable. No evidence of necrotizing process. Some of the muscle was sharply debrided. The extensive fat necrosis was sharply excised and debrided. Tissue was sent to Pathology for analysis to rule out carcinoma and to Microbiology for culture. A positive culture may necessitate antibiotic modification. MRSA Wound DNA by PCR was also done. The wound was irrigated with saline. Hemostasis was obtained with electrocautery. The size of the wound after the incision and drainage and excisional debridement was 10 x 4 x 5 cm. The wound was then packed with Mepitel nonadherent dressing followed by Kerlix gauze and Betadine followed by dry Kerlix gauze and ABD pads compression dressing. Patient tolerated the procedure well and was sent to PACU in satisfactory condition. Patient will be sent upstairs for continued postop care. The VAC will be applied tomorrow. Grafts/Implants Used: None. - Complications None. - Admit VTE Documentation VTE Present on Admission: No VTE Mechan Device Prophylaxis: SCD's VTE Pharm Prophylaxis ordered?: No Code Visit Surgery Charges CPT - 07401 ICD-10 - L02.213, L98.492, A49.8, A49.02 09259 L02.213, L98.492, A49.8, A49.02 04/25/18 0007 <Electronically signed by Romelia Morris MD> Date Romelia Morris MD CC: Romelia Morris MD; Dario Clifton DO; [facility] Signed EMERGENCY DEPARTMENT Observed: 04/22/2018 Status: F Source: [place] SUMMARY 11:57 PM [facility] REPOSITORY [facility] Medical Records Department [address] [facility] [place] [address] Emergency Department Summary 04/22/18 1744 MR#: [id number] Acct: [id number] Name: SANTIAGO SALGUERO Rep #: [id number] : 1995 23 From: Christa Davis MD PCP: Dario Clifton DO Status: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 23/F Location: [facility] Status: Signed Intake Vital Signs04/13/18 Blood Pressure 128/84 04/13/18 Blood Pressure Location Lt brachial 04/13/18 Blood Pressure Position Sitting 04/13/18 Respiratory Rate 14 Intake Visit Reasons: post op surgery 04/05/18 [employer] Supervisor Required: No Accompanied by: None Is patient in pain?: Yes (RIGHT BREAST AND WHOLE CHEST BURNING AND PULLING PAIN) Pain scale (1-10): 9 Allergies No Known Allergies Allergy (Verified 04/13/18 13:56) Medications Escitalopram Oxalate [Lexapro] 5 mg PO DAILY 04/04/18 [History Confirmed 04/15/18] Lorazepam [Ativan] 0.5 mg PO DAILY 04/04/18 [History Confirmed 04/15/18] Oxycodone HCl/Acetaminophen [Percocet 5-325] 1 - 2 tab PO 4X/DAY PRN PRN 7 Days #50 tab 04/05/18 [Rx Confirmed 04/15/18] diazepam 5 mg tablet 5 mg PO 4X/DAY PRN #30 tab 04/13/18 [Rx Confirmed 04/15/18] Bupropion HCl [Wellbutrin Xl] 300 mg PO DAILY 04/15/18 [History Confirmed 04/15/18] Ciprofloxacin HCl 750 mg PO BID 04/15/18 [History Confirmed 04/15/18] Doxycycline 100 mg PO BID 04/15/18 [History Confirmed 04/15/18] Cefepime HCl [Maxipime] 2 gm IV Q12 38 Days #76 vial 04/19/18 [Rx] Vancomycin IV 1,500 mg IV Q12H 38 Days #76 vial 04/19/18 [Rx] Is last menstrual period known: Yes Post menopausal: No Patient : No PFSH Medical History Anxiety and depression (Acute) Back problem (Acute) Gallstones (Acute) Kidney stones (Acute) Surgical History History of appendectomy (Acute) History of back surgery (Acute) History of tubal ligation (Acute) Family History Mother Diabetes Hypertension Father Hypertension Grandmother Diabetes Social History Smoking Status: Never smoker alcohol intake: never substance use type: does not use additional social history: DOES NOT USE ASPIRIN DOES USE IBUPROFEN HPI post op surgery 04/05/18: Details: Postop visit from her recent surgery on 04/05/18 where she underwent surgical preparation right lateral chest wall with excision nonhealing painful MRSA ulcer and 10 cm complex secondary wound closure. Postop visit from her surgery on 02/22/18 where she underwent surgical preparation right lateral chest wall/lateral breast with incision and drainage and excisional debridement abscess (48 cm2). Postop wound care was begun with the VAC. She comes in today complaining of increased pain. She states that she has not been feeling well. Denies fevers. She is having a large amount of drainage from the Keren drain, 50 ml/day. Will leave in for another week. Discussed operative wound culture with the patient. It showed Pseudomonas spp. No MRSA was seen even though the MRSA Wound DNA by PCR at surgery was positive. She was discharged home on Doxycycline for the MRSA. Will add Cipro for the Pseudomonas. Will watch the incision closely. Pseudomonas can be destructive to the healing process. If she develops wound healing problems secondary to the Pseudomonas, she may need the VAC again for wound care. Discussed pathology results with the patient. It showed ulceration with associated acute and chronic inflammation and granulation. Encouraged the use of the kavitha wrap for compression to the surgical site. Renewed her Percocet (40 tabs) for pain. Renewed her Valium (30 tabs) for spasms. Wrote script for Cipro for 14 days (28 tabs) and 2 refills. She will continue her Doxycycline. Follow up one week. Will remove Keren drain then. Assessment AND Plan Problems 1. Non-pressure chronic ulcer of skin of other sites with fat layer exposed L98.492 2. Abscess of chest wall L02.213 3. 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 Abscess of chest wall L02.213 MRSA (methicillin resistant Staphylococcus aureus) infection A49.02 04/16/18 1940 <Electronically signed by Romelia Morris MD> Date Romelia Morris MD 04/19/18 1515<Electronically signed by Nicole THAYERC> Cosigner Signature: Date (if applicable) Nicole AguirreC CC: CBC-COMPLETE BLOOD CNT Collected: 04/19/2018 Status: F Source: [place] NO DIFF 4:10 AM [facility] REPOSITORY Order Comment: SPECIMEN OBTAINED FROM LINE DRAW TYPE CODE TESTS RESULT OUT OF RANGE REFERENCE UNITS LAB L100.1000 4.4-11.0 K/mm3 Normal WBC 6.1 LAB L100.1200 4.2-5.4 M/mm3 Low RBC 3.85 LAB L100.1300 12.0-15.0 g/dl Low HGB 10.0 LAB L100.1400 37-47 % Low HCT 32.8 LAB L100.1500 81-99 fL Normal MCV 85.2 LAB L100.1600 27.0-32.0 pg Low MCH 26.0 LAB L100.1700 32-36 g/gl Low MCHC 30.5 LAB L100.1810 11.6-14.6 % Normal RDW CV 13.8 LAB L100.1820 35.1-43.9 fl Normal RDW SD 42.8 LAB L100.1900 150-450 K/mm3 Normal PLT 201 LAB L100.2000 6.2-12.0 fl Normal MPV 10.7 Performed By: #### L100.0500 #### [facility] [address] [place], [id number] BASIC METABOLIC Collected: 04/19/2018 Status: F Source: [place] PROFILE (BMP) 4:10 AM [facility] REPOSITORY Order Comment: SPECIMEN OBTAINED FROM LINE DRAW TYPE CODE TESTS RESULT OUT OF RANGE REFERENCE UNITS LAB L501.0100 74-106 mg/dL High GLU 107 Result Comment: Fasting Glucose result from 100 to 125 mg/dL suggests IMPAIRED HOMEOSTASIS per A.D.A. criteria. Please note revised GLUCOSE reference range effective 2017. LAB L501.1000 7-18 mg/dL Normal BUN 13 LAB L501.1100 0.55-1.02 mg/dL Normal CREAT,SERUM 0.88 Result Comment: The validity of the calculated GFR AND GFRAA in patients over 70 years has not been determined. Clinical correlation is essential. LAB L501.1110 >60 mL/min Normal EST GFR 83 Result Comment: Non- GFR Calc LAB L501.1115 >60 mL/min Normal EST GFR - AA 100 Result Comment: GFR Calc LAB L501.1255 ml/min Normal Estimated CRCL 95.03 LAB L501.1300 10-20 RATIO Normal BUN/CRE 14.7 LAB L501.2200 8.5-10 mg/dL Low .1 CA 8.2 LAB L501.5300 136-14 mmol/L Normal 5 NA 144 LAB L501.5600 3.5-5. mmol/L Normal 1 K 3.8 LAB L501.5900 98-107 mmol/L Normal CL 105 LAB L501.6100 21.0-3 mmol/L Normal 2.0 CO2 29.0 LAB L501.6200 5-15 Normal GAP 10 Performed By: #### L500.2500 #### [facility] [address] [place], [address] Observed: 04/18/2018 Status: F Source: [place] CULTURE, DEEP WOUND 2:31 PM [facility] REPOSITORY Order Date: 03/10/17 Comments: abscess right lateral chest wall collected in or Gram Stain Gram Stain 4+ Red Blood Cells 1+ White Blood Cells No organisms seen Wound Culture ISOLATED FROM BROTH CULTURE ONLY. ORGANISM 1: Pseudomonas aeroginosa Amount Growth Growth Pseudomonas aeroginosa: REACTION Aztreonam $$$ 25 S Pseudomonas aeroginosa: REACTION Amikacin $ <=2 S Cefepime $ 2 S Ceftazidime *NF 4 S Ciprofloxacin $ <=0.25 S Gentamicin $ 2 S Imipenem *NF 2 S Levofloxacin $ 1 S Meropenem $ <=0.25 S Piperacillin/Tazobactam $$ 16 S Tobramycin $ <=1 S (NF) indicates non-formulary drug at [facility]. Approval by Infectious Disease Specialist required before non-formulary drugs may be ordered and/or dispensed. Cult, Anaerobic No growth in 5 days. Performed By: #### M100.1500 #### [facility] [address] [facility] [place], [address] MRSA WOUND DNA BY Collected: 04/18/2018 Status: F Source: [place] PCR 2:31 PM [facility] REPOSITORY Order Comment: Comments: abscess right lateral chest wall collected in or Specimen Source? absess TYPE CODE TESTS RESULT OUT OF RANGE REFERENCE UNITS LAB L8200.1100 Negative Normal MRSA Negative RESULT LAB L8200.1150 Negative Normal SA RESULT NEGATIVE Performed By: #### L8200.1075 #### [facility] [address] [facility] [place], [address] Observed: 04/18/2018 Status: F Source: [place] CULTURE, FUNGUS W/ 2:31 PM [id number] REPOSITORY Comments: collected in or right lateral chest wall abscess Is this test to exclude patient from TB Isolation? N Cu,[id number] [facility]FOR[facility]. ORIGINAL REPORT ON FILE IN LAB CONTAINS ADDITIONAL TEST SITE INFORMATION. CUF No yeast or mold isolated after [address] TESTING PERFORMED AT [facility]. ORIGINAL REPORT ON FILE IN LAB CONTAINS ADDITIONAL TEST SITE INFORMATION. Fungus Stain No yeast or mold observed. Performed By: #### M600.1900 #### [facility] [address] [place], [address] ABSCESS (CHOOSE Observed: 04/18/2018 Status: F Source: [facility]) 7:30 AM [facility] REPOSITORY Patient: SANTIAGO SALGUERO : 1995 () Acct Num: [id number] Phys: Romelia Morris MD Unit Num: [id number] Loc: MS2 [id number] Specimen: [id number] Received: 04/18/18 - 1450 Spec Type: Abscess TISSUES TISSUES: Chest wall, NOS COMMENT Please make reference to previous specimen ([id number]), right lateral chest wall/ lateral breast abscess with similar diagnosis and special stains for acid fast bacilli and fungi are negative for organisms; matched controls are appropriate. GROSS DESCRIPTION Received in fixative is one container labeled with the patient's name and designated pseudomonas abscess right lateral chest wall. The specimen consists of multiple irregular fragments of light portillo soft tissue that in aggregate measure 4 x 4 x 1.5 cm. No mass lesion is identified. Hot Frame Tender tissue is submitted in two cassettes. / JUVE:mychal 04/18/18 TC:2 CPT: 32796 HEADER OPERATION: Surgical preparation right lateral chest wall with incision PRE-OP DIAGNOSIS: Pseudomonas abscess right lateral chest wall TISSUE SUBMITTED: Pseudomonas abscess right lateral chest wall MICROSCOPIC DESCRIPTION Slides are reviewed. MICROSCOPIC DIAGNOSIS Pseudomonas abscess right lateral chest wall: Fragments of fibroadipose and fibroconnective tissue with acute and chronic inflammation and abscess formation. JUVE:mychal 04/19/18 Signed Winston Muller 04/19/18 <signature on file> Performed By: #### PABS #### [facility] [address] [place], [address] VANCOMYCIN, TROUGH Collected: 04/17/2018 Status: F Source: [place] LEVEL 9:35 AM [facility] REPOSITORY Order Comment: Comments: Please draw 30 min before dose due at 1000 Time Medication is to be Given? 1000 TYPE CODE TESTS RESULT OUT OF RANGE REFERENCE UNITS LAB L501.8820 5.0-15.0 ug/mL Normal VANCO, TROUGH 13.1 Result Comment: VANCOMYCIN STANDARED DRUG THERAPY TROUGH LEVEL: 5.0 - 15.0 mg/L VANCOMYCIN HIGH INTENSITY THERAPY TROUGH LEVEL: 15.0 - 20.0 mg/L High Intensity therapy recommended for serious life threatening infections include: - Meningitis -Endocarditis -Pneumonia (Ventilator/Healtcare Associated) -Sepsis PLEASE CONTACT PHARMACY SERVICES (#[id number]) FOR INTERPRETATION OF RESULTS. Performed By: #### L501.8820 #### [facility] [address] [place], [address] CBC-COMPLETE BLOOD CNT Collected: 04/17/2018 Status: F Source: [place] NO DIFF 9:35 AM [facility] REPOSITORY TYPE CODE TESTS RESULT OUT OF RANGE REFERENCE UNITS LAB L100.1000 4.4-11.0 K/mm3 Normal WBC 6.3 LAB L100.1200 4.2-5.4 M/mm3 Normal RBC 4.40 LAB L100.1300 12.0-15.0 g/dl Low HGB 11.3 LAB L100.1400 37-47 % Normal HCT 37.2 LAB L100.1500 81-99 fL Normal MCV 84.5 LAB L100.1600 27.0-32.0 pg Low MCH 25.7 LAB L100.1700 32-36 g/gl Low MCHC 30.4 LAB L100.1810 11.6-14.6 % Normal RDW CV 13.8 LAB L100.1820 35.1-43.9 fl Normal RDW SD 42.3 LAB L100.1900 150-450 K/mm3 Normal PLT 264 LAB L100.2000 6.2-12.0 fl Normal MPV 10.7 Performed By: #### L100.0500 #### [facility] [address] [place], [address] BASIC METABOLIC Collected: 04/17/2018 Status: F Source: [place] PROFILE (BMP) 9:35 AM [facility] REPOSITORY TYPE CODE TESTS RESULT OUT OF RANGE REFERENCE UNITS LAB L501.0100 74-106 mg/dL Normal GLU 89 Result Comment: Please note revised GLUCOSE reference range effective 2017. LAB L501.1000 7-18 mg/dL Normal BUN 10 LAB L501.1100 0.55-1.02 mg/dL Normal CREAT,SERUM 0.91 Result Comment: The validity of the calculated GFR AND GFRAA in patients over 70 years has not been determined. Clinical correlation is essential. LAB L501.1110 >60 mL/min Normal EST GFR 80 Result Comment: Non- GFR Calc LAB L501.1115 >60 mL/min Normal EST GFR - AA 97 Result Comment: GFR Calc LAB L501.1255 ml/min Normal Estimated CRCL 91.90 LAB L501.1300 10-20 RATIO Normal BUN/CRE 11.0 LAB L501.2200 8.5-10 mg/dL Normal .1 CA 9.0 LAB L501.5300 136-14 mmol/L Normal 5 NA 141 LAB L501.5600 3.5-5. mmol/L Normal 1 K 4.0 LAB L501.5900 98-107 mmol/L Normal CL 105 LAB L501.6100 21.0-3 mmol/L Normal 2.0 CO2 28.0 LAB L501.6200 5-15 Normal GAP 8 Performed By: #### L500.2500 #### [facility] [address] [facility] [place], [place], [address] ERYTHROCYTE SED RATE Collected: 04/16/2018 Status: F Source: [place] 7:28 AM [facility] REPOSITORY TYPE CODE TESTS RESULT OUT OF RANGE REFERENCE UNITS LAB L102.0000 0-20 mm/hr High SED RATE 31 Performed By: #### L101.9900, L100.0500 #### [facility] [address] [facility] [place], [address] CBC-COMPLETE BLOOD CNT Collected: 04/16/2018 Status: F Source: [place] NO DIFF 7:28 AM [facility] REPOSITORY TYPE CODE TESTS RESULT OUT OF RANGE REFERENCE UNITS LAB L100.1000 4.4-11.0 K/mm3 Normal WBC 6.7 LAB L100.1200 4.2-5.4 M/mm3 Low RBC 4.16 LAB L100.1300 12.0-15.0 g/dl Low HGB 11.1 LAB L100.1400 37-47 % Low HCT 34.5 LAB L100.1500 81-99 fL Normal MCV 82.9 LAB L100.1600 27.0-32.0 pg Low MCH 26.7 LAB L100.1700 32-36 g/gl Normal MCHC 32.2 LAB L100.1810 11.6-14.6 % Normal RDW CV 13.6 LAB L100.1820 35.1-43.9 fl Normal RDW SD 40.5 LAB L100.1900 150-450 K/mm3 Normal PLT 251 LAB L100.2000 6.2-12.0 fl Normal MPV 10.7 Performed By: #### L101.9900, L100.0500 #### [facility] [address] [place], [address] BASIC METABOLIC Collected: 04/16/2018 Status: F Source: [place] PROFILE (BMP) 7:28 AM [facility] REPOSITORY TYPE CODE TESTS RESULT OUT OF RANGE REFERENCE UNITS LAB L501.0100 74-106 mg/dL Normal GLU 92 Result Comment: Please note revised GLUCOSE reference range effective 2017. LAB L501.1000 7-18 mg/dL Normal BUN 9 LAB L501.1100 0.55-1.02 mg/dL Normal CREAT,SERUM 0.84 Result Comment: The validity of the calculated GFR AND GFRAA in patients over 70 years has not been determined. Clinical correlation is essential. LAB L501.1110 >60 mL/min Normal EST GFR 87 Result Comment: Non- GFR Calc LAB L501.1115 >60 mL/min Normal EST GFR - AA 106 Result Comment: GFR Calc LAB L501.1255 ml/min Normal Estimated CRCL 99.56 LAB L501.1300 10-20 RATIO Normal BUN/CRE 10.7 LAB L501.2200 8.5-10 mg/dL Normal .1 CA 8.6 LAB L501.5300 136-14 mmol/L Normal 5 NA 141 LAB L501.5600 3.5-5. mmol/L Normal 1 K 3.5 LAB L501.5900 98-107 mmol/L High CL 108 LAB L501.6100 21.0-3 mmol/L Normal 2.0 CO2 26.0 LAB L501.6200 5-15 Normal GAP 7 Performed By: #### L500.2500, L500.4050, L501.6710, L506.0500 #### [facility] [address] [place], [place], [address] COMPREHENSIVE METABOLIC Collected: 04/16/2018 Status: F Source: [facility] 7:28 AM [facility] REPOSITORY TYPE CODE TESTS RESULT OUT OF RANGE REFERENCE UNITS LAB L501.1500 6.4-8.2 g/dL Normal T PROT 7.2 LAB L501.1800 3.2-5.0 g/dL Normal ALB 3.3 LAB L501.1950 2.2-4.2 g/dL Normal GLOB 3.9 LAB L501.2000 0.9-2.4 RATIO Low A/G 0.8 LAB L501.4100 15-37 U/L Normal AST 20 LAB L501.4305 45-117 U/L Normal ALK P 76 LAB L501.4405 13-56 U/L Normal ALT 22 LAB L501.4600 0.20-1.00 mg/dL Normal T BILI 0.40 Performed By: #### L500.2500, L500.4050, L501.6710, L506.0500 #### [facility] [address] [place], [place], [address] CRP Collected: 04/16/2018 Status: F Source: [place] 7:28 [facility] REPOSITORY TYPE CODE TESTS RESULT OUT OF RANGE REFERENCE UNITS LAB L501.6710 0.0-3.0 mg/L High 17.90 C-REACTIVE PROT Result Comment: C-Reactive Protein (CRP) provides useful information for the diagnosis, therapy and monitoring of inflammatory processes and associated diseases. For the evaluation of Relative Risk for Cardiovascular Disease, a High Sensitivity CRP (HSCRP) should be ordered. Performed By: #### L500.2500, L500.4050, L501.6710, L506.0500 #### [facility] [address] [place], [address] PREALBUMIN Collected: 04/16/2018 Status: F Source: [place] 7:28 AM [facility] REPOSITORY TYPE CODE TESTS RESULT OUT OF REFERENCE UNITS RANGE LAB L506.0500 20.0-40.0 mg/dL Low PREALBUMIN 15.1 Performed By: #### L500.2500, L500.4050, L501.6710, L506.0500 #### [facility] [address] [facility] [place], [address] Observed: 04/16/2018 Status: F Source: [place] CULTURE, SURGERY DEEP 6:55 AM [facility] WOUND REPOSITORY List Antibiotics Last 48 Hours? cipro and doxycycline List Antibiotics to be Started? vancomycin and zosyn and levaquin Comments: Right Chest wall Gram Stain Gram Stain 3+ White Blood Cells No organisms seen Wound Culture ORGANISM 1: Pseudomonas aeroginosa Amount Growth Rare Pseudomonas aeroginosa: REACTION Cefepime $ 2 S Ceftazidime *NF 4 S Ciprofloxacin $ <=0.25 S Gentamicin $ <=1 S Imipenem *NF 1 S Levofloxacin $ 1 S Piperacillin/Tazobactam $$ 8 S Tobramycin $ <=1 S (NF) indicates non-formulary drug at [facility]. Approval by Infectious Disease Specialist required before non-formulary drugs may be ordered and/or dispensed. Cult, Anaerobic No growth in 5 days. Performed By: #### M100.1550 #### [facility] [address] [place], [address] OPERATIVE REPORT Observed: 04/08/2018 Status: F Source: [place] 2:34 PM [facility] REPOSITORY [facility] Medical Records Department [address] [place] [address] Operative Report 04/05/18 1922 MR#: [id number] Acct: [id number] Name: SANTIAGO SALGUERO Rep #: [id number] : 1995 23 From: Romelia Morris MD PCP: Dario Clifton DO Status: DEP [facility] Y Location: [facility] Report of Operation Date of Procedure: 04/05/18 Pre-Operative Diagnosis: 1. Nonhealing painful ulcer right lateral chest wall. 2. MRSA. Post-Operative Diagnosis: Same. Surgery/Procedure Performed:: Surgical preparation right lateral chest wall with excision nonhealing painful MRSA ulcer and 10 cm complex secondary wound closure. Description of Surgical Findings:: The patient is a 23 year old female who was admitted because of increasing pain and redness and swelling in her right lateral chest wall/lateral breast area. A few days ago she went to the ED and had I AND D of her right lateral chest wall abscess. However, despite drainage and being on an antibiotic, she still developed worsening symptomatology and came back to the ED and was admitted. She had a CT done which showed cellulitis and no definitive fluid collection and right axillary lymphadenopathy. She was started on Vancomycin and Zosyn. The drainage was cultured and came back with MRSA. She went to the OR on 02/22/18 where she underwent surgical preparation right lateral chest wall/lateral breast with incision and drainage and excisional debridement abscess (48 cm2). Postop wound care was begun with the VAC. After discharge, she was followed up at the Wound Center. The wound showed good granulation tissue with the VAC. However, she had persistent pain in her wound and operative debridement with complex secondary wound closure was recommended. Patient voiced understanding and wished to proceed. Patient was informed of the risks and complications of the procedure including alternatives to surgery. These were discussed with the patient personally. Patient voices understanding and wishes to proceed. I used Sawyer absorbable hemostat. Reference Number - [id number]. Lot Number - [id number]. Expiration - February 03, 2023. 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 Type of Anesthesia:: General Specimen's removed: 1. Nonhealing MRSA ulcer right lateral chest wall to Pathology and Microbiology. 2. MRSA Wound DNA by PCR. Drains: Keren. Estimated Blood Loss (mL): 50 ml. Description of Procedure: Patient was taken to OR in supine position and was placed under general anesthesia. The right lateral chest wall was prepped and draped in the usual fashion. SCD's were placed for DVT prophylaxis. Perioperative antibiotics were given intravenously. Using xylocaine with epinephrine, the right lateral chest wall was infiltrated. After waiting 5 minutes for the anesthetic to take effect, I made an elliptical excision around this nonhealing MRSA ulcer. Dissection was carried down through the previous scar tissue down to the chest wall. There was scar tissue that was dissected away from the pectoralis major muscle and the latissimus dorsi muscle. Tissue was sent to Pathology for analysis to rule out carcinoma and to Microbiology for culture. Also MRSA Wound DNA by PCR was also done. The wound was irrigated with saline. Hemostasis was obtained with electrocautery. I placed a size 15 Keren drain through a separate stab incision inferiorly and secured to the skin with 3-0 Nylon suture. I sprayed Sawyer absorbable hemostat into the wound to minimize seroma formation. I then closed the wound in multiple layers with 3-0 Monocryl figure of eight interrupted sutures for the deeper subcutaneous tissue and fascia. 3-0 Monocryl suture was also used for the deep dermis and subcutaneous tissue. The skin was approximated with 3-0 Monocryl running subcuticular suture. This was then followed by Histoacryl skin tissue adhesive. Kerlix gauze was applied followed by compression KAVITHA wrap. Patient tolerated the procedure well and was sent to PACU in satisfactory condition. Patient will be sent home on antibiotics and pain medication and Valium for spasm. Patient will followup in a week for a wound check and for discussion of the pathology report and the microbiology report. She was on Doxycycline preop and will continue that until the culture is available. A positive culture may necessitate antibiotic modification. I will remove the drain in 10-14 days. Grafts/Implants Used: None. - Complications None. - Admit VTE Documentation VTE Present on Admission: No VTE Mechan Device Prophylaxis: SCD's VTE Pharm Prophylaxis ordered?: No Code Visit Surgery Charges CPT - 54881 ICD-10 - L98.492, L02.213, A49.02 71344 L98.492, L02.213, A49.02 04/08/18 7204 <Electronically signed by Romelia Morris MD> Date Romelia Morris MD CC: Romelia Morris MD; Dario Clifton DO; [facility] Signed HISTORY AND PHYSICAL Observed: 04/06/2018 Status: F Source: [place] EXAM 11:57 PM [facility] REPOSITORY [facility] Medical Records Department [address] [place] [address] History and Physical 04/04/18 2354 MR#: [id number] Acct: [id number] Name: SANTIAGO SALGUERO Rep #: [id number] : 1995 23 From: Romelia Morris MD PCP: Dario Clifton, DO Status: DEP [facility] Y Location: [facility] History and Physical Date of Admission: 04/05/18 HISTORY OF PRESENT ILLNESS The patient is a 23 year old female who was admitted because of increasing pain and redness and swelling in her right lateral chest wall/lateral breast area. A few days ago she went to the ED and had I AND D of her right lateral chest wall abscess. However, despite drainage and being on an antibiotic, she still developed worsening symptomatology and came back to the ED and was admitted. She had a CT done which showed cellulitis and no definitive fluid collection and right axillary lymphadenopathy. She was started on Vancomycin and Zosyn. The drainage was cultured and came back with MRSA. She went to the OR on 02/22/18 where she underwent surgical preparation right lateral chest wall/lateral breast with incision and drainage and excisional debridement abscess (48 cm2). Postop wound care was begun with the VAC. After discharge, she was followed up at the Wound Center. The wound showed good granulation tissue with the VAC. However, she had persistent pain in her wound and operative debridement with complex secondary wound closure was recommended. Patient voiced understanding and wished to proceed. PAST MEDICAL HISTORY Depression. Right lateral chest wall abscess. MRSA. PAST SURGICAL HISTORY appendectomy. Tubal ligation. back surgery for scoliosis. Surgical preparation right lateral chest wall/lateral breast with incision and drainage and excisional debridement abscess (48 cm2) - 02/22/18 MEDICATIONS Bupropion. Lexapro. Ativan. Percocet. Doxycycline. ALLERGIES None. SOCIAL HISTORY Smoking Status: Never smoker. Patient drinks alcohol occasionally. FAMILY HISTORY Maternal - No pertinent history. Paternal - No pertinent history. REVIEW OF SYSTEMS Constitutional: Reports: Chills, Fever. Denies: Weight Change. HEENT: Denies: Head Aches, Sinus Congestion, Sinus Drainage. Cardiovascular: Denies: Chest Pain, Palpitations. Respiratory: Denies: Cough, Shortness of breath at rest, Sputum production. Gastrointestinal: Denies: Abdominal Pain, Nausea, Vomiting. Genitourinary: Denies: Dysuria. Musculoskeletal: Denies: Joint Pain, Joint Tenderness. Skin: Has abscess right lateral chest wall/lateral breast. Neurological: Denies: Numbness, Tingling, Focal weakness. Psychiatric: Denies: Anxiety, Depression, Homicidal Ideations, Suicidal Ideations. Hematologic/ Lymphatic: Denies: Easy Bruising, Easy Bleeding PHYSICAL EXAMINATION General: Alert, Oriented x3. HEENT: PERRLA, EOMI, throat is clear. Neck: Supple and nontender. No cervical adenopathy. There is a nonhealing MRSA ulcer right lateral chest wall. Tenderness to palpation. Measures 2 x 8.5 x 2 cm. Some granulation tissue seen. No further evidence of infection. Lungs: Clear to auscultation. Cardiovascular: Regular rate and rhythm. Abdomen: Soft, Non-distended. Extremities: No clubbing, cyanosis or edema. Musculoskeletal: No Tenderness to Palpation of Joints or Extremities Neurological: Cranial nerves II-XII grossly intact Psych/Mental Status: Normal Affect, Appropriate ASSESSMENT 1. Nonhealing painful ulcer right lateral chest wall. 2. MRSA. 3. s/p surgical preparation right lateral chest wall/lateral breast with incision and drainage and excisional debridement abscess (48 cm2). PLAN With continued pain in her nonhealing MRSA ulcer right lateral chest wall, it was recommended to the patient to proceed with further operative debridement with complex secondary wound closure. Will send tissue to Pathology for analysis and to Microbiology for culture. A positive culture may necessitate antibiotic modification. She is currently on Doxycycline. At the time of surgery, a drain will be placed to minimize seroma formation. I will also use Sawyer absorbable hemostat intra-operatively to minimize seroma. Will need a compression KAVITHA wrap postop. Patient was informed of the risks and complications of the procedure including alternatives to surgery. These were discussed with the patient personally. Patient voices understanding and wishes to proceed. 04/06/18 6693 <Electronically signed by Romelia Morris MD> Date Romelia Morris MD Cosigner Signature: Date (if applicable) CC: Romelia Morris MD; Dario Clifton DO; [facility] Signed ULCER Observed: 04/05/2018 Status: F Source: [place] 11:55 AM [facility] REPOSITORY Patient: SANTIAGO SALGUERO : 1995 (23/F) Acct Num: [id number] Phys: Lani MADDEN,Romelia Unit Num: [id number] Loc: [facility] Specimen: [id number] Received: 04/05/18 - 1349 Spec Type: ULCER TISSUES TISSUES: ULCER COMMENT AFB and GMS stains with matched controls were used in the evaluation of this case. GROSS DESCRIPTION Received in fixative is one container labeled with the patient's name and designated right lateral chest ulcer. The specimen consists of an ellipse of pink-portillo skin with attached fatty tissue measuring 6.5 x 2.8 cm and a depth of excision measuring 3.2 cm. The cutaneous surface contains an ulcerated/open area measuring 3.5 x 0.5 x 1 cm. Serial sections do not reveal mass lesions. Hot Frame Tender sections are submitted in three cassettes. / AM: 04/05/18 TC: 2 CPT: 80567, 21451 x2 HEADER OPERATION: Excisional debridement lateral chest wall ulcer PRE-OP DIAGNOSIS: Nonhealing ulcer right lateral chest wall, MRSA, status post surgical preparation right lateral chest wall/lateral breast with incision and drainage, excisional debridement abscess TISSUE SUBMITTED: Right lateral chest MRSA ulcer MICROSCOPIC DESCRIPTION Slides are reviewed. MICROSCOPIC DIAGNOSIS Skin and soft tissue of right lateral chest ulcer, excision: Ulceration with associated acute and chronic inflammation and granulation. Negative for acid-fast bacilli and fungal organisms. AM: 04/07/18 Signed Rahat Marti 04/07/18 <signature on file> Performed By: #### PUL #### [facility] [place], [address] DISCHARGE INSTRUCTION Observed: 04/05/2018 Status: F Source: [place] 11:54 AM [facility] REPOSITORY [facility] Medical Records Department [address] [place] [address] Instructions for Home/Discharge Instructions 04/05/18 1150 MR#: [id number] Acct: [id number] Name: SANTIAGO SALGUERO Rep #: [id number] : 1995 23 From: Romelia Morris MD PCP: Dario Clifton, DO Status: REG SDC You will use the following diet at home:: No restrictions Discharge Activity: May not drive while taking narcotic pain medications., May Not Shower - until the drain is removed in the office., - - no heavy lifting. keep head elevated. May shower in (days): 10 - may shower after the drain is removed in the office. May resume sexual activity in: No Restrictions Weight Bearing Status: Weight bearing as tolerated Lifting Restrictions: 20 lbs. Keep extremity elevated above heart level: - - elevate head. Call your doctor if your incision/area has: Continuous Slow Oozing, Sudden Increased Bleeding, Increased Pain/ Swelling, Increased Redness, Foul Smelling Discharge, Swelling at the incision site Call your doctor if you observe: Fever of 101 or Higher, Coldness, Increased Pain, Shortness of breath, Chest pain, Calf discomfort, Uncontrolled pain Suture Line Care: - - dry dressing daily after operative dressing removed in two days. Change Dressing in (Days):: 2 - change operative dressing in two days and then dry dressing daily. Cleanse incision/area with: - - may get incision wet in the shower after the drain is removed in the office. Drain: Suction - keren drain to bulb suction. empty and record output daily. Allergies/Adverse Reactions: Allergies No Known Allergies Allergy (Verified 04/04/18 14:06) Medications to take at Discharge bupropion HCl XL 300 mg 24 hr tablet, extended release 300 mg PO DAILY #30 tab 08/19/17 Escitalopram Oxalate [Lexapro] 5 mg PO DAILY 04/04/18 Lorazepam [Ativan] 0.5 mg PO DAILY 04/04/18 Diazepam [Valium] 5 mg PO TID PRN PRN #20 tab 04/05/18 Doxycycline 100 mg PO BID #28 cap 04/05/18 Oxycodone HCl/Acetaminophen [Percocet 5-325] 1 - 2 tab PO 4X/DAY PRN PRN 7 Days #50 tab 04/05/18 The following prescriptions were given: Diazepam [Valium] 5 mg PO TID PRN PRN #20 tab PRN Reason: Spasms Oxycodone HCl/Acetaminophen [Percocet 5-325] 1 - 2 tab PO 4X/DAY PRN PRN 7 Days #50 tab PRN Reason: Pain Doxycycline 100 mg PO BID #28 cap Primary Care Physician: Dario Poe DO [Primary Care Provider] - Test Results: Test results from this visit will be discussed in further detail at your follow-up appointment, if applicable. Please Follow Up With: Romelia Morris MD When: one week. call [phone] for appt. Proposed Discharge Date: 04/05/18 04/05/18 1154 <Electronically signed by Romelia Morris MD> Date Romelia Morris MD CC: Dario Clifton DO; [facility] MRSA WOUND DNA BY Collected: 04/05/2018 Status: F Source: [place] PCR 11:00 AM [facility] REPOSITORY Order Comment: Comments: COLLECTED IN OR 1100 RIGHT LATERAL CHEST MRSA ULCE TYPE CODE TESTS RESULT OUT OF REFERENCE UNITS RANGE LAB L8200.1100 Negative High MRSA POSITIVE RESULT LAB L8200.1150 Negative High SA RESULT POSITIVE Performed By: #### L8200.1075 #### [facility] [address] [place], [address] Observed: 04/05/2018 Status: F Source: [place] CULTURE, DEEP WOUND 11:00 AM [facility] REPOSITORY Order Date: 03/10/17 Comments: COLLECTED IN [place] 1100 RIGHT LATERAL CHEST MRSA ULCE Gram Stain Gram Stain 3+ Red Blood Cells 1+ White Blood Cells No organisms seen Wound Culture ORGANISM 1: Pseudomonas spp Amount Growth Very Rare Pseudomonas spp: REACTION Ceftazidime *NF 4 S Ciprofloxacin $ <=0.25 S Gentamicin $ <=1 S Imipenem *NF 2 S Levofloxacin $ 0.5 S Piperacillin/Tazobactam $$ 8 S Tobramycin $ <=1 S (NF) indicates non-formulary drug at [facility]. Approval by Infectious Disease Specialist required before non-formulary drugs may be ordered and/or dispensed. Cult, Anaerobic No anaerobic bacteria isolated. Performed By: #### M100.1500 #### [facility] [address] [place], [address] Observed: 04/05/2018 Status: F Source: [place] JORGE, JOSH W/ 11:00 [facility] [id number] REPOSITORY Comments: COLLECTED IN [place] 1100 RIGHT LATERAL CHEST MRSA ULCE Is this test to exclude patient from TB Isolation? N Cu,[id number] TESTING PERFORMED AT [facility]. ORIGINAL REPORT ON FILE IN LAB CONTAINS ADDITIONAL TEST SITE INFORMATION. CUF No yeast or mold isolated after [address] TESTING PERFORMED AT [facility]. ORIGINAL REPORT ON FILE IN LAB CONTAINS ADDITIONAL TEST SITE INFORMATION. Fungus Stain No yeast or mold observed. Performed By: #### M600.1900 #### [facility] [address] [place], [address] ,URINE Collected: 04/05/2018 Status: F Source: [place] 9:40 [facility] REPOSITORY TYPE CODE TESTS RESULT OUT OF REFERENCE UNITS RANGE LAB L400.8000 Negative Normal HCGUQUAL Negative Result Comment: Very dilute urine specimens, as indicated by a low specific gravity, may not contain advertising representative levels of hCG. If is still suspected, a first morning urine specimen should be collected 48 hours later and tested. Performed By: #### L400.7600 #### [facility] [address] [place], [address] PROGRESS Observed: 03/30/2018 Status: COMPLETED Source: [place] 2:[address] [facility] REPOSITORY HNO ID: [id number] Author: Dario Poe Service: (none) Author Type: Physician Type: Progress Notes Filed: 03/30/2018 2:18 PM Note Text: CC: Santiago Salguero is a 23 year old female who presents to the office for 3 months follow up HPI: Back pain, previously in office Chronic back pain, this current episode started more than 1 week ago. The problem occurs constantly. The problem has not changed?since onset.The pain is associated with no known injury (scoliosis surgury in 2006 ). The pain is present in the lumbar spine, sacro-iliac joint and gluteal region. The quality of the pain is described as stabbing, shooting and aching. The pain radiates to the left thigh and right thigh. The pain is at a severity of 9/10. The pain is severe. The symptoms are aggravated by bending, twisting and certain positions. The pain is the same all the time. Associated symptoms include headaches, abdominal pain, leg pain, tingling?and weakness. She has tried NSAIDs?for the symptoms. The treatment provided no?relief. Risk factors include obesity, lack of exercise, poor posture and . ? She was given rx for flexeril and prednisone ? Previously ? ?continues to have progressively worsening pain in low back, mostly left >right, feeling of weakness and feeling like her leg is going to give out, tingling/burning and sharp shooting pain down left leg. ?Hx of thoracic/lumbar anne-marie and pedicle placement for severe scoliosis 11 year ago. ?Hasn't had repeat xrays since then. ?Has had 3 pregnancies in 3 years, typically recovers in weeks after baby is born, not after this 3rd . ?No bowel or bladder changes. ? She had MRI ordered and performed, unable to interpret images well due to rods in spine for scoliosis as a young teenager ? She is continuing to have mid and low back pain, left sided sciatica symptoms, comes and goes, worse with prolonged standing or walking, feels leg weakness. ?No improvement with pain with prednisone, muscle relaxants and tramadol. ? Hasn't seen spine surgeon recently ? At last OFFICE VISIT 3 months ago She has an appt to follow up with Dr. Franks for pain mgmt ? CT lumbar showed L5/S1 facet narrowing b/l, degeneration of the disc ? Is struggling with pain with standing and ambulation and flexion. No other new symptoms ? Currently Low back pain is currently doing okay. Not as bothersome recently, hasn't filled rx for Valium in >1 month, rare use recently. Recently diagnosed and treated for large abscess and excisional surgery due to worsening infection as well as subsequent poor healing with wound vac in place. Anxiety has subsequently increased, denies depression, no SI or HI PAST MEDICAL HISTORY Diagnosis Date - Maternal anemia in , antepartum 11/14/2013 - Mild preeclampsia 01/23/2014 - Miscarriage - depression - Pyelonephritis 11/28/2013 - Scoliosis PAST SURGICAL HISTORY Procedure Laterality Date - APPENDECTOMY 07/22/2009 Dr. Rizzo - BACK SURGERY HX 12/2006 for scoloisis. Current Outpatient Prescriptions: oxyCODONE-acetaminophen (PERCOCET) 5-325 mg tablet tiZANidine (ZANAFLEX) 4 mg tablet Take 1 tablet by mouth at bedtime as needed. buPROPion XL (WELLBUTRIN XL) 300 mg 24 hr tablet Take 300 mg by mouth once daily. LORazepam (ATIVAN) 0.5 mg tab Take 1 tablet by mouth once daily as needed (panic attack) for up to 30 days. 30 tablets to last 30 days or more escitalopram oxalate (LEXAPRO) 5 mg tablet Take 1 tablet by mouth once daily. For anxiety No current facility-administered medications for this visit. ALLERGIES No Known Allergies Social History Marital status: Single Spouse name: Years of education: 12 Number of children: 2 Occupational History Occupation Employer Comment [employer] Social History Main Topics Smoking status: Never Smoker Smokeless tobacco: Never Used Comment: Dad smokes Alcohol use: No Drug use: No Sexual activity: Yes Partners with: Male ROS: See HPI PE: BP 110/60 Pulse 64 Temp (Src) 97.2 (Left Tympanic) Resp 16 Wt 240 lb (108.9kg) LMP 03/09/2018 Gen: AANDOX3, NAD, non-toxic appearing HEENT: PERRLA, EOMs intact b/l, nares without drainage, pharynx without erythema, exudate, lesions, or drainage. Uvula midline. Neck: No LAD, no thyromegaly, no meningismus. CV: RRR, no murmur Lungs: CTA b/l, no wheezing Skin: right chest wound vac in place ASSESSMENT/PLAN: 1. Situational anxiety - ICD9: 300.09, ICD10: F41.8 (primary diagnosis) - start on Lexapro, titrate up as needed, okay for prn Ativan as well, will stop Valium - LORAZEPAM 0.5 MG TABLET - ESCITALOPRAM 5 MG TABLET 2. ANASTACIO (generalized anxiety disorder) - ICD9: 300.02, ICD10: F41.1 - see above - ESCITALOPRAM 5 MG TABLET 3. Dysthymia - ICD9: 300.4, ICD10: F34.1 - see above, no current depressed mood - ESCITALOPRAM 5 MG TABLET Dario Poe DO Return if no improvement. Follow up with Dario Poe DO. Discussed risks, benefits, alternatives, and potential side effects of medications. Patient/Guardian expressed understanding and agreed with the plan. See patient instructions. Dario Poe DO [address] [place] [address] CNOV Observed: 03/30/2018 Status: COMPLETED Source: [place] 1:[address] [facility] REPOSITORY Office Visit (FAMPWS) SANTIAGO SALGUERO ([id number]) 1995 F Date Time Provider Department 03/30/18 1:40 PM DARIO POE During your visit today, we recorded the following information about you: Temperature Pulse Respiration Blood pressure 97.2 degrees 64/minute 16/minute 110/60 Weight Last Period 108.9 kg 03/09/18 Dario Poe DO 03/30/2018 2:18 PM Signed CC: Santiago Salguero is a 23 year old female who presents to the office for 3 months follow up HPI: Back pain, previously in office Chronic back pain, this current episode started more than 1 week ago. The problem occurs constantly. The problem has not changed?since onset.The pain is associated with no known injury (scoliosis surgury in 2006 ). The pain is present in the lumbar spine, sacro-iliac joint and gluteal region. The quality of the pain is described as stabbing, shooting and aching. The pain radiates to the left thigh and right thigh. The pain is at a severity of 9/10. The pain is severe. The symptoms are aggravated by bending, twisting and certain positions. The pain is the same all the time. Associated symptoms include headaches, abdominal pain, leg pain, tingling?and weakness. She has tried NSAIDs?for the symptoms. The treatment provided no?relief. Risk factors include obesity, lack of exercise, poor posture and . ? She was given rx for flexeril and prednisone ? Previously ? ?continues to have progressively worsening pain in low back, mostly left >right, feeling of weakness and feeling like her leg is going to give out, tingling/burning and sharp shooting pain down left leg. ?Hx of thoracic/lumbar anne-marie and pedicle placement for severe scoliosis 11 year ago. ?Hasn't had repeat xrays since then. ?Has had 3 pregnancies in 3 years, typically recovers in weeks after baby is born, not after this 3rd . ?No bowel or bladder changes. ? She had MRI ordered and performed, unable to interpret images well due to rods in spine for scoliosis as a young teenager ? She is continuing to have mid and low back pain, left sided sciatica symptoms, comes and goes, worse with prolonged standing or walking, feels leg weakness. ?No improvement with pain with prednisone, muscle relaxants and tramadol. ? Hasn't seen spine surgeon recently ? At last OFFICE VISIT 3 months ago She has an appt to follow up with Dr. Franks for pain mgmt ? CT lumbar showed L5/S1 facet narrowing b/l, degeneration of the disc ? Is struggling with pain with standing and ambulation and flexion. No other new symptoms ? Currently Low back pain is currently doing okay. Not as bothersome recently, hasn't filled rx for Valium in >1 month, rare use recently. Recently diagnosed and treated for large abscess and excisional surgery due to worsening infection as well as subsequent poor healing with wound vac in place. Anxiety has subsequently increased, denies depression, no SI or HI PAST MEDICAL HISTORY Diagnosis Date - Maternal anemia in , antepartum 11/14/2013 - Mild preeclampsia 01/23/2014 - Miscarriage - depression - Pyelonephritis 11/28/2013 - Scoliosis PAST SURGICAL HISTORY Procedure Laterality Date - APPENDECTOMY 07/22/2009 Dr. Rizzo - BACK SURGERY HX 12/2006 for scoloisis. Current Outpatient Prescriptions: oxyCODONE-acetaminophen (PERCOCET) 5-325 mg tablet tiZANidine (ZANAFLEX) 4 mg tablet Take 1 tablet by mouth at bedtime as needed. buPROPion XL (WELLBUTRIN XL) 300 mg 24 hr tablet Take 300 mg by mouth once daily. LORazepam (ATIVAN) 0.5 mg tab Take 1 tablet by mouth once daily as needed (panic attack) for up to 30 days. 30 tablets to last 30 days or more escitalopram oxalate (LEXAPRO) 5 mg tablet Take 1 tablet by mouth once daily. For anxiety No current facility-administered medications for this visit. ALLERGIES No Known Allergies Social History Marital status: Single Spouse name: Years of education: 12 Number of children: 2 Occupational History Occupation Employer Comment [employer] Social History Main Topics Smoking status: Never Smoker Smokeless tobacco: Never Used Comment: Dad smokes Alcohol use: No Drug use: No Sexual activity: Yes Partners with: Male ROS: See HPI PE: BP 110/60 Pulse 64 Temp (Src) 97.2 (Left Tympanic) Resp 16 Wt 240 lb (108.9kg) LMP 03/09/2018 Gen: AANDOX3, NAD, non-toxic appearing HEENT: PERRLA, EOMs intact b/l, nares without drainage, pharynx without erythema, exudate, lesions, or drainage. Uvula midline. Neck: No LAD, no thyromegaly, no meningismus. CV: RRR, no murmur Lungs: CTA b/l, no wheezing Skin: right chest wound vac in place ASSESSMENT/PLAN: 1. Situational anxiety - ICD9: 300.09, ICD10: F41.8 (primary diagnosis) - start on Lexapro, titrate up as needed, okay for prn Ativan as well, will stop Valium - LORAZEPAM 0.5 MG TABLET - ESCITALOPRAM 5 MG TABLET 2. ANASTACIO (generalized anxiety disorder) - ICD9: 300.02, ICD10: F41.1 - see above - ESCITALOPRAM 5 MG TABLET 3. Dysthymia - ICD9: 300.4, ICD10: F34.1 - see above, no current depressed mood - ESCITALOPRAM 5 MG TABLET Dario Poe DO Return if no improvement. Follow up with Dario Poe DO. Discussed risks, benefits, alternatives, and potential side effects of medications. Patient/Guardian expressed understanding and agreed with the plan. See patient instructions. Dario Poe DO [address] [place] [address] Referring Provider: DARIO POE [[id number]] Allergies As of Date: 03/30/2018 (No Known Allergies) Date Reviewed: 03/30/2018 Reviewed by: Dorothy Choi LPN - Fully Assessed Reason for Visit: Follow Up [171] Cmt: 3 months Primary Visit Diagnosis:Situational anxiety [F41.8] Other Visit Diagnoses:ANASTACIO (generalized anxiety disorder) [F41.1] Dysthymia [F34.1] Order(s):LORazepam (ATIVAN) 0.5 mg tabTake 1 tablet by mouth once daily as needed (panic attack) for up to 30 days. 30 tablets to last 30 days or moreDisp: 30 tabletRfl: 1 escitalopram oxalate (LEXAPRO) 5 mg tabletTake 1 tablet by mouth once daily. For anxietyDisp: 30 tabletRfl: 1 Prescriptions as of 03/30/2018 Sig: OXYCODONE-ACETAMINOPHEN 5 MG-* TIZANIDINE 4 MG TABLET Take 1 tablet by mouth at bed* BUPROPION XL 300 MG 24 HR TAB Take 300 mg by mouth once praveen* LORAZEPAM 0.5 MG TABLET Take 1 tablet by mouth once d* ESCITALOPRAM 5 MG TABLET Take 1 tablet by mouth once d* Problem List As Of Date 03/30/2018 Noted Resolved Scoliosis (and kyphoscoliosis), idiopathic [M41*INVALID FOR*11/10/2016 More... Rubella non-immune status, antepartum [O99.89, *INVALID FOR*02/26/2015 More... Maternal anemia in , antepartum [O99.0*INVALID FOR*02/26/2015 More... Pyelonephritis [N12] INVALID FOR*02/26/2015 More... Kidney stones [N20.0] INVALID FOR*02/26/2015 Chronic low back pain [M54.5, G89.29] INVALID FOR*11/10/2016 Mild preeclampsia [O14.00] INVALID FOR*02/26/2015 More... Missed [O02.1] INVALID FOR*12/11/2015 Hx of preeclampsia, prior , currently *INVALID FOR* More... Encounter for supervision of normal *INVALID FOR*04/15/2016 Obesity in [O99.210] INVALID FOR* More... Short interval between pregnancies affecting pr*INVALID FOR* More... History of depression [Z86.59] INVALID FOR* More... Nausea and vomiting during [O21.9] INVALID FOR* More... History of back surgery [Z98.890] INVALID FOR* More... Patient requested diagnostic testing [Z01.89] INVALID FOR* More... History of kidney stones [Z87.442] INVALID FOR* More... Back pain affecting [O99.89, M54.9] INVALID FOR* SI (sacroiliac) joint dysfunction [M53.3] INVALID FOR* More... History of lumbar spinal fusion [Z98.1] INVALID FOR* More... Juvenile idiopathic scoliosis of lumbar region *INVALID FOR* History of fusion of thoracic spine [Z98.1] INVALID FOR* Weakness of left leg [R29.898] INVALID FOR* Facet arthritis, degenerative, L5-S1 level, lum*INVALID FOR* Prescriptions ordered this encounter Disp Refills Start End LORAZEPAM 0.5 MG TABLET 30 t* 1 03/30/2018 04/29/2018 Class: Print RX Route: ORAL Sig: Take 1 tablet by mouth once daily as needed (panic attack) for up to 30 days. 30 tablets to last 30 days or more ESCITALOPRAM 5 MG TABLET 30 t* 1 03/30/2018 Route: ORAL Sig: Take 1 tablet by mouth once daily. For anxiety Medications Discontinued During This Encounter diazePAM (VALIUM) 5 mg tablet 02/23/2018 03/30/2018 Class: Historical Med Si TIMES DAILY NEEDED PRN For Spasms Disc: Reason for discontinue is not on file. Encounter Status:Closed by DARIO POE DO on 03/30/18 PROGRESS Observed: 03/07/2018 Status: COMPLETED Source: [place] 2:51 PM [facility] REPOSITORY HNO ID: [id number] Author: Emperatriz Polanco (Kiln Fireman) Nik Service: (none) Author Type: Nurse Practitioner Type: Progress Notes Filed: 03/07/2018 3:36 PM Note Text: SUBJECTIVE: Santiago Salguero presents to [facility] for a followup appointment for chronic back pain. Since the last visit, Santiago Salguero states the pain has been same. Current pain intensity is 7 on a scale of 0-10. Pain located in Back area and radiates down the posterolateral leg. Pain described as radiating, sharp and shooting The patient Reports morning stiffness. Symptoms interfere with daily activity. Pain is exacerbated by standing, lifting and walking. Pain is mitigated by lying down. The patient notes no improvement from the previous procedure. REVIEW OF SYSTEMS: Constitutional: (-) Fever (-) Night Sweats (-) Weight Gain (-) Weight Loss (-) Fatigue Cardiovascular: (-) Chest Pain (-) Palpitations (-) Lightheadedness (-) Swelling of Ankles (-) Hx Heart Surgery Respiratory: (-) Shortness of Breath (-) Cough (-) Wheezing (-) Snoring Gastrointestinal: (-) Incontinence (-) Abdominal Pain (-) Diarrhea (-) Constipation (-) Nausea/Vomiting (-) Heart Burn Endocrine: (-) Thyroid Disorder (-) Diabetes Hematologic: (-) Prolonged Bleeding (-) Easy Bruising Genitourinary: (-) Incontinence (-) Frequency (-) Urinary Urgency Skin: (-) Rashes (-) Itching (-) Other Lesions Neurologic: (-) Headache (-) Double Vision (-) Confusion (-) Paralysis Psychiatric: (+) Depression (+) Anxiety (-) Delusions (-) Hallucinations (-) Personal History of Alcohol or Substance Abuse (-) Family History of Alcohol or Substance Abuse OBJECTIVE: Pulse 76 Wt 236 lb (107.0kg) SpO2 98% PHYSICAL EXAMINATION: General appearance: Well appearing, in no acute distress, alert Skin: Skin color, texture, turgor normal, no rashes or lesions. Wound vac right flank Neck: No pain to palpation over the cervical paraspinous muscles. No pain with neck flexion, extension, or lateral flexion Cardiovascular: Regular rate Lungs: Normal respiratory rate and rhythm Abdomen: Abdomen soft and non-tender. Back: Intact range of motion Spine: Reports Tenderness on palpation: Lumbar-sacral paravertebral's, axial, bilateral SI tenderness Extremities: No deformities, edema, or skin discoloration. Good capillary refill. Musculoskeletal: Bilateral upper and lower extremity strength is normal and symmetric. No atrophy or tone abnormalities are noted. Neuro: No loss of sensation is noted. Station and Gait: Normal stance, normal gait. Motor: Exhibits full strength in all four extremities. Trigger points: none. ASSESSMENT: Assessment : Patient reports lower back pain with bilateral SI tenderness that radiates down the posterior bilateral legs to behind the knees. She is fused from a scoliosis surgery from 2017 She had bilateral SI injections on 02/03/18 and reports no improvements Currently she has a wound vac to her right flank. She reports she developed and abscess 02/20 and went to the ED, was then admitted for I and D and IV medication. She developed MRSA. She will have the wound vac for 4-6 weeks. She was given rxs for percoet 5/325 #60 pills and valium 5 mg #30 pills. Patient reports the baclofen is not effective Encounter Diagnosis ICD-10-CM 1. SI (sacroiliac) joint dysfunction M53.3 2. Juvenile idiopathic scoliosis of lumbar region M41.116 3. History of lumbar spinal fusion Z98.1 4. History of fusion of thoracic spine Z98.1 5. Weakness of left leg R29.898 6. Facet arthritis, degenerative, L5-S1 level, lumbosacral spine M47.817 PDMP website checked and validated. All prescriptions have been APPROPRIATELY filled. No suspicious activity was identified. 03/07/2018 by Nanci Bean Ma Narcotic Agreement reviewed and signed?: N/A on March 07, 2018 The pain panel was N/A PLAN: 1) Resume stretching and exercising once wound vac is removed and cleared for activity 2) No injections indicated at this time 3) Stop baclofen. Start tizanidine at bedtime. She is aware not to take at the same time as valium. 4) RTC prn The above plan and management options were discussed at length with patient. Patient is in agreement with the above and verbalized understanding. Emperatriz Trevino APRN, CNP March 07, 2018 CNOV Observed: 03/07/2018 Status: COMPLETED Source: [place] 2:[address] [facility] REPOSITORY Office Visit (PNMDNA) SANTIAGO SALGUERO ([id number]) 1995 F Date Time Provider Department 03/07/18 2:30 PM EMPERATRIZ TREVINO (INTERNET MARKETING STRATEGIST) PNMDNA During your visit today, we recorded the following information about you: Pulse Weight 76/minute 107 kg Emperatriz Trevino APRN.INTERNET MARKETING STRATEGIST 03/07/2018 3:36 PM Signed SUBJECTIVE: Santiago Salguero presents to [facility] for a followup appointment for chronic back pain. Since the last visit, Santiago Salguero states the pain has been same. Current pain intensity is 7 on a scale of 0-10. Pain located in Back area and radiates down the posterolateral leg. Pain described as radiating, sharp and shooting The patient Reports morning stiffness. Symptoms interfere with daily activity. Pain is exacerbated by standing, lifting and walking. Pain is mitigated by lying down. The patient notes no improvement from the previous procedure. REVIEW OF SYSTEMS: Constitutional: (-) Fever (-) Night Sweats (-) Weight Gain (-) Weight Loss (-) Fatigue Cardiovascular: (-) Chest Pain (-) Palpitations (-) Lightheadedness (-) Swelling of Ankles (-) Hx Heart Surgery Respiratory: (-) Shortness of Breath (-) Cough (-) Wheezing (-) Snoring Gastrointestinal: (-) Incontinence (-) Abdominal Pain (-) Diarrhea (-) Constipation (-) Nausea/Vomiting (-) Heart Burn Endocrine: (-) Thyroid Disorder (-) Diabetes Hematologic: (-) Prolonged Bleeding (-) Easy Bruising Genitourinary: (-) Incontinence (-) Frequency (-) Urinary Urgency Skin: (-) Rashes (-) Itching (-) Other Lesions Neurologic: (-) Headache (-) Double Vision (-) Confusion (-) Paralysis Psychiatric: (+) Depression (+) Anxiety (-) Delusions (-) Hallucinations (-) Personal History of Alcohol or Substance Abuse (-) Family History of Alcohol or Substance Abuse OBJECTIVE: Pulse 76 Wt 236 lb (107.0kg) SpO2 98% PHYSICAL EXAMINATION: General appearance: Well appearing, in no acute distress, alert Skin: Skin color, texture, turgor normal, no rashes or lesions. Wound vac right flank Neck: No pain to palpation over the cervical paraspinous muscles. No pain with neck flexion, extension, or lateral flexion Cardiovascular: Regular rate Lungs: Normal respiratory rate and rhythm Abdomen: Abdomen soft and non-tender. Back: Intact range of motion Spine: Reports Tenderness on palpation: Lumbar-sacral paravertebral's, axial, bilateral SI tenderness Extremities: No deformities, edema, or skin discoloration. Good capillary refill. Musculoskeletal: Bilateral upper and lower extremity strength is normal and symmetric. No atrophy or tone abnormalities are noted. Neuro: No loss of sensation is noted. Station and Gait: Normal stance, normal gait. Motor: Exhibits full strength in all four extremities. Trigger points: none. ASSESSMENT: Assessment : Patient reports lower back pain with bilateral SI tenderness that radiates down the posterior bilateral legs to behind the knees. She is fused from a scoliosis surgery from 2017 She had bilateral SI injections on 02/03/18 and reports no improvements Currently she has a wound vac to her right flank. She reports she developed and abscess 02/20 and went to the ED, was then admitted for I and D and IV medication. She developed MRSA. She will have the wound vac for 4-6 weeks. She was given rxs for percoet 5/325 #60 pills and valium 5 mg #30 pills. Patient reports the baclofen is not effective Encounter Diagnosis ICD-10-CM 1. SI (sacroiliac) joint dysfunction M53.3 2. Juvenile idiopathic scoliosis of lumbar region M41.116 3. History of lumbar spinal fusion Z98.1 4. History of fusion of thoracic spine Z98.1 5. Weakness of left leg R29.898 6. Facet arthritis, degenerative, L5-S1 level, lumbosacral spine M47.817 PDMP website checked and validated. All prescriptions have been APPROPRIATELY filled. No suspicious activity was identified. 03/07/2018 by Nanci Bean Ma Narcotic Agreement reviewed and signed?: N/A on March 07, 2018 The pain panel was N/A PLAN: 1) Resume stretching and exercising once wound vac is removed and cleared for activity 2) No injections indicated at this time 3) Stop baclofen. Start tizanidine at bedtime. She is aware not to take at the same time as valium. 4) RTC prn The above plan and management options were discussed at length with patient. Patient is in agreement with the above and verbalized understanding. Emperatriz Trevino APRN, INTERNET MARKETING STRATEGIST March 07, 2018 Referring Provider: ADAIR ALFONSO (BAUDILIO) [[id number]] Allergies As of Date: 03/07/2018 (No Known Allergies) Date Reviewed: 03/07/2018 Reviewed by: Nanci Bean Ma - Fully Assessed Reason for Visit: Follow Up [171] Primary Visit Diagnosis:SI (sacroiliac) joint dysfunction [M53.3] Other Visit Diagnoses:Juvenile idiopathic scoliosis of lumbar region [M41.116] History of lumbar spinal fusion [Z98.1] History of fusion of thoracic spine [Z98.1] Weakness of left leg [R29.898] Facet arthritis, degenerative, L5- S1 level, lumbosacral spine [M47.817] Order(s):tiZANidine (ZANAFLEX) 4 mg tabletTake 1 tablet by mouth at bedtime as needed.Disp: 30 tabletRfl: 1 Prescriptions as of 03/07/2018 Sig: DIAZEPAM 5 MG TABLET 4 TIMES DAILY NEEDED PRN F* OXYCODONE-ACETAMINOPHEN 5 MG-* BUPROPION XL 300 MG 24 HR TAB Take 300 mg by mouth once praveen* TIZANIDINE 4 MG TABLET Take 1 tablet by mouth at bed* Problem List As Of Date 03/07/2018 Noted Resolved Scoliosis (and kyphoscoliosis), idiopathic [M41*INVALID FOR*11/10/2016 More... Rubella non-immune status, antepartum [O99.89, *INVALID FOR*02/26/2015 More... Maternal anemia in , antepartum [O99.0*INVALID FOR*02/26/2015 More... Pyelonephritis [N12] INVALID FOR*02/26/2015 More... Kidney stones [N20.0] INVALID FOR*02/26/2015 Chronic low back pain [M54.5, G89.29] INVALID FOR*11/10/2016 Mild preeclampsia [O14.00] INVALID FOR*02/26/2015 More... Missed [O02.1] INVALID FOR*12/11/2015 Hx of preeclampsia, prior , currently *INVALID FOR* More... Encounter for supervision of normal *INVALID FOR*04/15/2016 Obesity in [O99.210] INVALID FOR* More... Short interval between pregnancies affecting pr*INVALID FOR* More... History of depression [Z86.59] INVALID FOR* More... Nausea and vomiting during [O21.9] INVALID FOR* More... History of back surgery [Z98.890] INVALID FOR* More... Patient requested diagnostic testing [Z01.89] INVALID FOR* More... History of kidney stones [Z87.442] INVALID FOR* More... Back pain affecting [O99.89, M54.9] INVALID FOR* SI (sacroiliac) joint dysfunction [M53.3] INVALID FOR* More... History of lumbar spinal fusion [Z98.1] INVALID FOR* More... Juvenile idiopathic scoliosis of lumbar region *INVALID FOR* History of fusion of thoracic spine [Z98.1] INVALID FOR* Weakness of left leg [R29.898] INVALID FOR* Facet arthritis, degenerative, L5-S1 level, lum*INVALID FOR* Prescriptions ordered this encounter Disp Refills Start End TIZANIDINE 4 MG TABLET 30 t* 1 03/07/2018 04/06/2018 Cmt: Patient aware not to take valium and zanaflex at the same time. She will take valium in the morning and zanaflex at bedtime Route: ORAL Sig: Take 1 tablet by mouth at bedtime as needed. Encounter Status:Closed by EMPERATRIZ TREVINO on 03/07/18 OPERATIVE REPORT Observed: 03/04/2018 Status: F Source: [place] 2:24 PM [facility] REPOSITORY [facility] Medical Records Department [address] [place] [address] Operative Report 02/22/18 1847 MR#: [id number] Acct: [id number] Name: SANTIAGO SALGUERO Rep #: [id number] : 1995 22 From: Romelia Morris MD PCP: Daroi Clifton DO Status: DIS IN Y Location: NC3 [id number] Report of Operation Date of Procedure: 02/22/18 Pre-Operative Diagnosis: 1. Right lateral chest wall/lateral breast abscess. 2. MRSA. Post-Operative Diagnosis: Same. Surgery/Procedure Performed:: Surgical preparation right lateral chest wall/lateral breast with incision and drainage and excisional debridement abscess (48 cm2). Description of Surgical Findings:: The patient is a 22 year old female who was admitted because of increasing pain and redness and swelling in her right lateral chest wall/lateral breast area. A few days ago she went to the ED and had I AND D of her right lateral chest wall abscess. However, despite drainage and being on an antibiotic, she still developed worsening symptomatology and came back to the ED and was admitted. She had a CT done which showed cellulitis and no definitive fluid collection and right axillary lymphadenopathy. She was started on Vancomycin and Zosyn. The drainage was cultured and came back with MRSA. I was asked to evaluate this patient for surgical options for treatment. Patient was informed of the risks and complications of the procedure including alternatives to surgery. These were discussed with the patient personally. Patient voices understanding and wishes to proceed. Size of defect right lateral chest wall/lateral breast - 8 x 6 x 6 cm. 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 Drains: None. Estimated Blood Loss (mL): 50 ml. Description of Procedure: Patient was taken to OR in supine position and was placed under general anesthesia. Her right lateral chest wall/lateral breast area was prepped and draped in the usual fashion. SCD's were placed for DVT prophylaxis. Perioperative antibiotics were given intravenously. Using xylocaine with epinephrine, the area was infiltrated. After waiting 5 minutes for the anesthetic to take effect, I proceeded with incision and drainage with a scalpel in the area of the induration and firmness which included the previous incision from I AND D in the ED. A lot of fat necrosis was present. Thick pus was seen consistent with MRSA. A large firm indurated wall of fat necrosis was covering the pus pocket. It was adherent to the underlying latissimus muscle and chest wall musculature. It was sharply excised and debrided. Some of the tissue was sent to Microbiology for culture and the rest of the tissue was sent to Pathology for analysis to rule out carcinoma. There was some tunnelling laterally and extensive fat necrosis was sharply excised and debrided along with some of the overlying skin to make the wound care easier with the VAC. The antibiotics have improved the redness on the lateral breast and no surgical debridement needed to be done on the lateral breast area. The wound was irrigated with saline. Hemostasis was obtained with electrocautery. The size of the wound after incision and drainage and excisional debridement was 8 x 6 x 6 cm. The wound was dressed with Mepitel nonadherent dressing followed by Kerlix gauze with Betadine and dry Kerlix gauze and and ABD pad compression dressing. Patient tolerated the procedure well and was sent to PACU in satisfactory condition. She will be sent back upstairs for continued postop care. The VAC will be placed tomorrow. She will be sent home on antibiotics and pain medication. She will followup at the [facility] after discharge. If there is a plateau in the healing process, can proceed with delayed closure with skin grafting or skin flap reconstruction. Grafts/Implants Used: None. - Complications None. - Admit VTE Documentation VTE Present on Admission: No VTE Mechan Device Prophylaxis: SCD's VTE Pharm Prophylaxis ordered?: Yes Code Visit Surgery Charges CPT - 10037 ICD-10 - L02.213, L03.313, N61.0, A49.02 44437 L02.213, L03.313, N61.0, A49.02 03/04/18 6160 <Electronically signed by Romelia Morris MD> Date Romelia Morris MD CC: Ju Cruz; Romelia Morris MD; Dario Clifton DO; Moe Wilder MD; [facility] Signed DISCHARGE SUMMARY Observed: 02/24/2018 Status: F Source: [place] 7:33 PM [facility] REPOSITORY [facility] Medical Records Department [address] [place] [address] Discharge Summary 02/24/18 1100 MR#: [id number] Acct: [id number] Name: SANTIAGO SALGUERO Rep #: [id number] : 1995 22 From: Collin Cruz DO PCP: Dario Clifton DO Status: DIS IN Y Location: [facility] [id number] Discharge Date and Diagnosis - Problem List Patient Problems: Active and Suspected Problems Cellulitis of right breast (Acute) Cellulitis of chest wall (Acute) Abscess of chest wall (Acute) abscess right lateral chest wall/lateral breast area Cellulitis and abscess of other specified site (Acute) MRSA (methicillin resistant Staphylococcus aureus) infection (Acute) Date of Admission: 02/21/18 Date of Discharge: 02/24/18 - Primary Discharge Diagnosis Active and Suspected Problems Cellulitis and abscess Right lateral chest wall Cellulitis of the breast - ruled out MRSA (methicillin resistant Staphylococcus aureus) infection (Acute) Hypokalemia - Secondary Discharge Diagnosis Chronic Problems Obesity with BMI 38.0-38.9,adult (Chronic) Depression (Chronic) Hospital Course and Treatment Imaging Results: Clinical Impression(s) from Imaging Studies Chest CT 02/20/18 20:56 IMPRESSION: Subcutaneous stranding in the right lateral chest wall but no discrete fluid collection. This likely represents cellulitis. Right axillary lymphadenopathy. Clear lungs. Electronically Signed: Trenton Enriquez, at 22:57 EDT Tel , Service support , Microbiology 02/22/18 Unknown Tissue - Breast Gram Stain - Final 02/22/18 Unknown Tissue - Breast Wound Culture - Final Meth. resistant Staph. aureus 02/21/18 02:00 Wound - Other Gram Stain - Final 02/21/18 02:00 Wound - Other Wound Culture - Final Meth. resistant Staph. aureus 02/21/18 02:00 Wound - Other Anaerobic Culture - Final No anaerobic bacteria isolated. 02/21/18 00:24 Blood Culture (Wb) - Anticubital Left Blood Culture - Preliminary No growth in 48 hours. 02/21/18 00:24 Blood Culture (Wb) - Left Hand Blood Culture - Preliminary No growth in 48 hours. 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 Romelia Morris-plastic surgery Operations: - - Incision and drainage with excisional debridement of abscess right lateral chest wall by Dr. morris on 02/22/18 Procedures: Wound vac placement Summary of Care Provided: Patient is a 22-year-old female admitted to the hospital for cellulitis of the right breast. She had been seen in the emergency room on 02/19/2018 and had incision and drainage of right lateral chest wall abscess. NJo specimen was sent for C AND S. She was discharged home with a prescription for Keflex 4 times daily. She was instructed to take Tylenol or Motrin for pain. She returned to the emergency room on 02/20/2018 complaining of increased pain, fever and chills, N/V. Per the examination by the emergency room physician there was increased erythema when compared to the previous day. CT scan of the chest wall with IV contrast showed subcutaneous stranding in the right lateral chest wall but no discrete fluid collection. Right axillary adenopathy was present. White blood cell count was normal at 10 with an unremarkable differential. Platelets were mildly decreased at 137,000. Potassium was low at 3.2 and the remainder of the BMP was unremarkable. PCR on the wound drainage was positive for MRSA. She was admitted to the hospital and started on Zosyn and vancomycin. A PCR on the drainage from the wound was positive for MRSA. Dr. Morris was consulted for incision and drainage. She was taken to the OR on 02/22/2018 for IND with excisional debridement. Size of the defect in the right lateral chest wall postoperatively was 8 cm x 6 cm x 6 cm. A wound VAC was placed on 02/23/2018. The MRSA was sensitive to doxycycline, fluoroquinolones, Bactrim. She was discharged on doxycycline 100 mg twice daily for 7 more days. Home health care was arranged to manage the wound VAC and the patient will follow up with Dr. Morris in the wound care center on 03/14/2018 at 10 AM. Discharge Activity: May not drive while taking narcotic pain medications. Call your doctor if you observe: Fever of 101 or Higher Home Medications: Medications to take at Discharge bupropion HCl XL 300 mg 24 hr tablet, extended release 300 mg PO DAILY #30 tab 08/19/17 Diazepam [Valium] 5 mg PO 4X/DAY PRN PRN #30 tab 02/23/18 Oxycodone HCl/Acetaminophen [Percocet 5/325] 1 - 2 tab PO 4X/DAY PRN PRN 7 Days #60 tab 02/23/18 Doxycycline 100 mg PO BID #14 cap 02/24/18 Levofloxacin [Levaquin] 500 mg PO DAILY #14 tab 02/24/18 Following Prescrptions Were Given to Patient: Diazepam [Valium] 5 mg PO 4X/DAY PRN PRN #30 tab PRN Reason: Spasms Levofloxacin [Levaquin] 500 mg PO DAILY #14 tab Oxycodone HCl/Acetaminophen [Percocet 5/325] 1 - 2 tab PO 4X/DAY PRN PRN 7 Days #60 tab PRN Reason: Pain Doxycycline 100 mg PO BID #14 cap Primary Care Physician: Dario Poe DO [Primary Care Provider] - Please Follow Up With: Romelia Morris MD - wound care center When: 03/14/18 at 10AM Disposition: Home with Home Health Minutes spent on discharge:: 30 Patient Condition:: Good Medical Necessity - Tobacco Use Smoking Status: Never smoker Tobacco Use: Secondhand Meaningful Use Info Meaningful Use Diagnoses (Choose all that apply): None applicable Code Visit Inpatient E AND M: 14791 Disch Hosp 02/24/18 193 <Electronically signed by Collin Cruz DO> Date Collin Cruz DO Cosigner Signature (if applicable): Date CC: Ju Cruz; Romelia Morris MD; Dario Clifton DO Signed CONSULTATION Observed: 02/24/2018 Status: F Source: [place] 11:23 AM [facility] REPOSITORY [facility] Medical Records Department [address] [place] [address] Consultation 02/21/182150 MR#: [id number] Acct: [id number] Name: SANTIAGO SALGUERO Rep #: [id number] : 1995 22 From: Romelia Morris MD PCP: Dario Clifton DO Status: ADM IN Y Location: [facility] OL124-2 Reason for Consult Date of Consultation: 02/21/18 Reason for Consultation: Right lateral chest wall/lateral breast abscess. REFERRING PHYSICIAN: Dr. Cruz. PERSONAL DEVELOPMENT EDUCATOR: Dr. Morris. History of Present Illness: The patient is a 22 year old female who was admitted because of increasing pain and redness and swelling in her right lateral chest wall/lateral breast area. A few days ago she went to the ED and had I AND D of her right lateral chest wall abscess. However, despite drainage and being on an antibiotic, she still developed worsening symptomatology and came back to the ED and was admitted. She had a CT done which showed cellulitis and no definitive fluid collection and right axillary lymphadenopathy. She was started on Vancomycin and Zosyn. The drainage was cultured and came back with MRSA. I was asked to evaluate this patient for surgical options for treatment. Past Medical History Past Medical History (Chronic Problems): Chronic Problems BMI 38.0-38.9,adult (Chronic) Depression (Chronic) Allergies No Known Allergies Allergy (Verified 02/20/18 20:27) Current Medications Acetaminophen (Tylenol) 1,000 mg PO Q8H PRN PRN PRN Reason: PAIN Last Admin: 02/21/18 20:18 Dose: 1,000 mg Bupropion HCl (Wellbutrin Xl) 300 mg PO DAILY@2200 STANLEY Last Admin: 02/21/18 21:34 Dose: 300 mg Chlorhexidine Gluconate () 1 each TOPICAL DAILY STANLEY Stop: 02/26/18 10:01 Dextrose (D50w Syringe) 0 gm IV X1 PRN; Protocol PRN Reason: Hypoglycemia Enoxaparin Sodium (Lovenox) 40 mg SC DAILY@0600 STANLEY Glucagon () 1 mg IM .X1 PRN PRN Reason: Hypoglycemia Vancomycin HCl 1,500 mg/ (Sodium Chloride) 530 mls @ 250 mls/hr IV Q12H STANLEY Last Admin: 02/21/18 12:20 Dose: 250 mls/hr Ibuprofen (Motrin) 600 mg PO Q8H STANLEY Last Admin: 02/21/18 17:51 Dose: 600 mg Magnesium Hydroxide (Milk Of Magnesia) 30 ml PO DAILY PRN PRN PRN Reason: Constipation Morphine Sulfate () 6 mg IV Q4H PRN PRN PRN Reason: Moderate Pain (pain scale 4-5) Mupirocin (Bactroban) 1 applic NASAL BID STANLEY PRN Reason: Protocol Stop: 02/26/18 10:01 Last Admin: 02/21/18 21:36 Dose: 1 applicatio Ondansetron HCl (Zofran) 4 mg IV Q8H PRN PRN PRN Reason: Nausea Last Admin: 02/21/18 01:48 Dose: 4 mg Oxycodone HCl (Oxyir) 5 - 10 mg PO Q4H PRN PRN PRN Reason: Moderate Pain (pain scale 4-5) Last Admin: 02/21/18 21:34 Dose: 10 mg Prochlorperazine Edisylate (Compazine Iv) 10 mg IV Q6H PRN PRN PRN Reason: Nausea/Vomiting Sodium Chloride () 5 - 30 ml IV UD PRN PRN Reason: SALINE FLUSH Last Admin: 02/21/18 03:21 Dose: 10 ml Home Medications: Ambulatory Orders Medication Instructions Recorded bupropion HCl XL 300 mg 24 hr 300 mg PO DAILY #30 tab 08/19/17 tablet, extended release Diazepam [Valium] 5 mg PO 4X/DAY PRN PRN #30 tab 02/23/18 Oxycodone HCl/Acetaminophen 1 - 2 tab PO 4X/DAY PRN PRN 7 Days 02/23/18 Surgical History: appendectomy, - - Tubal ligation, back surgery for scoliosis Psychiatric History: No pertinent psych hx GUEST RELATIONS RECEPTIONIST History: No pertinent GUEST RELATIONS RECEPTIONIST history Smoking Status: Never smoker Tobacco Use: Secondhand - *Family History Maternal History Items: No pertinent history Paternal History Items: No pertinent history Review of Systems Comment: Constitutional: Reports: Chills, Fever. Denies: Weight Change. HEENT: Denies: Head Aches, Sinus Congestion, Sinus Drainage. Cardiovascular: Denies: Chest Pain, Palpitations. Respiratory: Denies: Cough, Shortness of breath at rest, Sputum production. Gastrointestinal: Denies: Abdominal Pain, Nausea, Vomiting. Genitourinary: Denies: Dysuria. Musculoskeletal: Denies: Joint Pain, Joint Tenderness. Skin: Has abscess right lateral chest wall/lateral breast. Neurological: Denies: Numbness, Tingling, Focal weakness. Psychiatric: Denies: Anxiety, Depression, Homicidal Ideations, Suicidal Ideations. Hematologic/ Lymphatic: Denies: Easy Bruising, Easy Bleeding Patient Problems: Active and Suspected Problems Cellulitis of right breast (Acute) Cellulitis of chest wall (Acute) Abscess of chest wall (Acute) abscess right lateral chest wall/lateral breast area Cellulitis and abscess of other specified site (Acute) MRSA (methicillin resistant Staphylococcus aureus) infection (Acute) - Physical Exam General: Alert, Oriented x3. HEENT: PERRLA, EOMI, throat is clear. Neck: Supple and nontender. No cervical adenopathy. There is an area of redness and tenderness and swelling in the right lateral chest wall/lateral breast area. Firmness and induration palpable. Small incision seen from I AND D in ED. Measures 12 x 8 cm. Chest Wall: Lungs: Clear to auscultation. Cardiovascular: Regular rate and rhythm. Abdomen: Soft, Non-distended. Extremities: No clubbing, cyanosis or edema. Musculoskeletal: No Tenderness to Palpation of Joints or Extremities Neurological: Cranial nerves II-XII grossly intact Psych/Mental Status: Normal Affect, Appropriate Vital Signs Temp Pulse Resp BP Pulse Ox 96.5 F L 67 17 113/67 99 02/21/18 20:00 02/21/18 20:00 02/21/18 20:00 02/21/18 20:00 02/21/18 20:00 Oxygen Delivery Method Room Air Weight: 229 lb 0.964 oz Body Mass Index (BMI) 36.9 Intake and Output for Last 24 Hours Intake Total 1298 / 1298 Output Total 575 / 575 Balance 723 / 723 Microbiology Past 72 Hours 02/21/18 02:00 Gram Stain - Final Wound - Other Laboratory Tests Past 24 Hrs WBC RBC Hgb Hct MCV MCH MCHC RDW RDW Differential Plt Count MPV POC Glucose POC Glucose [address] 02/20/18 20:56 IMPRESSION: Subcutaneous stranding in the right lateral chest wall but no discrete fluid collection. This likely represents cellulitis. Right axillary lymphadenopathy. Clear lungs. Electronically Signed: Trenton Enriquez, at 22:57 EDT Tel , Service support , Assessment/Plan All Active Problems Cellulitis of right breast (Acute) Cellulitis of chest wall (Acute) Abscess of chest wall (Acute) Cellulitis and abscess of other specified site (Acute) MRSA (methicillin resistant Staphylococcus aureus) infection (Acute) Abscess of right breast (Ruled-out) Acute pyelonephritis (Resolved) 1. Right lateral chest wall/lateral breast abscess. 2. MRSA. CT reviewed. The patient was placed on Vancomycin and Zosyn. Drainage has shown MRSA. So will continue the Vancomycin. Patient states it feels a little better since the I AND D but it still hurts every time she moves her arm takes a deep breath. There is still a lot of induration and firmness. Recommend operative intervention with incision and drainage and excisional debridement. Tissue will be sent to Microbiology for culture and to Pathology for analysis to rule out carcinoma. The wound will be left open and postop wound care will be with the VAC. Patient understands the wound will be left open. After discharge, she can followup at the Wound Center. If there is a plateau in the healing process, can proceed with delayed closure with skin grafting or skin flap reconstruction. Anticipate increased metabolic demands from the infection and from the surgery. Will check a Prealbumin. Encourage nutritional supplementation with protein to help the healing process. Surgery will be done under general anesthesia. Will proceed with the surgery tomorrow. Patient was informed of the risks and complications of the procedure including alternatives to surgery. These were discussed with the patient personally. Patient voices understanding and wishes to proceed. Code Visit Inpatient E AND M: 65586 Init Hosp L2 - ICD-10 - L02.213, L03.313, N61.0, A49.02 02/24/18 1123 <Electronically signed by Romelia Morris MD> Date Romelia Morris MD Cosigner Signature (if applicable): Date CC: Ju Cruz; Romelia Morris MD; Dario Clifton DO; Moe Wilder MD; Wound Care Center Signed DISCHARGE INSTRUCTION Observed: 02/24/2018 Status: F Source: [place] 10:58 AM [facility] REPOSITORY [facility] Medical Records Department [address] [place] [address] Instructions for Home/Discharge Instructions 02/24/18 1027 MR#: [id number] Acct: [id number] Name: SANTIAGO SALGUERO Rep #: [id number] : 1995 22 From: Collin Cruz DO PCP: Dario Clifton DO Status: ADM IN - Discharge Diagnoses Current Active Problems: Current Active and Chronic Problems Cellulitis (Acute) Abscess of right breast (Acute) You will use the following diet at home:: No restrictions Your food should be the consistency of: Regular Your liquids should be the consistency of: Regular/Thin Discharge Activity: May not drive while taking narcotic pain medications. Call your doctor if you observe: Fever of 101 or Higher Allergies/Adverse Reactions: Allergies No Known Allergies Allergy (Verified 02/20/18 20:27) Medications to take at Discharge bupropion HCl XL 300 mg 24 hr tablet, extended release 300 mg PO DAILY #30 tab 08/19/17 Diazepam [Valium] 5 mg PO 4X/DAY PRN PRN #30 tab 02/23/18 Oxycodone HCl/Acetaminophen [Percocet 5/325] 1 - 2 tab PO 4X/DAY PRN PRN 7 Days #60 tab 02/23/18 Doxycycline 100 mg PO BID #14 cap 02/24/18 Levofloxacin [Levaquin] 500 mg PO DAILY #14 tab 02/24/18 The following prescriptions were given: Diazepam [Valium] 5 mg PO 4X/DAY PRN PRN #30 tab PRN Reason: Spasms Levofloxacin [Levaquin] 500 mg PO DAILY #14 tab Oxycodone HCl/Acetaminophen [Percocet 5/325] 1 - 2 tab PO 4X/DAY PRN PRN 7 Days #60 tab PRN Reason: Pain Doxycycline 100 mg PO BID #14 cap Primary Care Physician: Dario Poe DO [Primary Care Provider] - Test Results: Test results from this visit will be discussed in further detail at your follow-up appointment, if applicable. Please Follow Up With: Romelia Morris MD - wound care center When: 03/14/18 at 10AM Proposed Discharge Date: 02/24/18 02/24/18 1058 <Electronically signed by Collin Cruz DO> Date Collin Cruz DO CC: Romelia Morris MD; Dario Clifton DO CBC-COMPLETE BLOOD CNT Collected: 02/23/2018 Status: F Source: [place] NO DIFF 5:40 AM [facility] REPOSITORY TYPE CODE TESTS RESULT OUT OF RANGE REFERENCE UNITS LAB L100.1000 4.4-11.0 K/mm3 Normal WBC 7.3 LAB L100.1200 4.2-5.4 M/mm3 Low RBC 4.09 LAB L100.1300 12.0-15.0 g/dl Low HGB 10.8 LAB L100.1400 37-47 % Low HCT 34.0 LAB L100.1500 81-99 fL Normal MCV 83.1 LAB L100.1600 27.0-32.0 pg Low MCH 26.4 LAB L100.1700 32-36 g/gl Low MCHC 31.8 LAB L100.1810 11.6-14.6 % Normal RDW CV 13.4 LAB L100.1820 35.1-43.9 fl Normal RDW SD 39.8 LAB L100.1900 150-450 K/mm3 Normal PLT 217 LAB L100.2000 6.2-12.0 fl Normal MPV 11.1 Performed By: #### L100.0500 #### [facility] [address] [place], [address] BASIC METABOLIC Collected: 02/23/2018 Status: F Source: [place] PROFILE (BMP) 5:40 AM [facility] REPOSITORY TYPE CODE TESTS RESULT OUT OF RANGE REFERENCE UNITS LAB L501.0100 74-106 mg/dL High GLU 120 Result Comment: Fasting Glucose result from 100 to 125 mg/dL suggests IMPAIRED HOMEOSTASIS per A.D.A. criteria. Please note revised GLUCOSE reference range effective 2017. LAB L501.1000 7-18 mg/dL Low BUN 6 LAB L501.1100 0.55-1.02 mg/dL Normal CREAT,SERUM 0.74 Result Comment: The validity of the calculated GFR AND GFRAA in patients over 70 years has not been determined. Clinical correlation is essential. LAB L501.1110 >60 mL/min Normal EST GFR 102 Result Comment: Non- GFR Calc LAB L501.1115 >60 mL/min Normal EST GFR - AA 123 Result Comment: GFR Calc LAB L501.1255 ml/min Normal Estimated CRCL 109.74 LAB L501.1300 10-20 RATIO Low BUN/CRE 8.1 LAB L501.2200 8.5-10 mg/dL .1 CA Normal 9.0 LAB L501.5300 136-14 mmol/L 5 NA Normal 142 LAB L501.5600 3.5-5. mmol/L 1 K Normal 3.8 LAB L501.5900 98-107 mmol/L High CL 108 LAB L501.6100 21.0-3 mmol/L 2.0 CO2 Normal 26.0 LAB L501.6200 5-15 GAP Normal 8 Performed By: #### L500.2500, L506.0500 #### [facility] [address] [facility] [facility]. [place], [place], [address] PREALBUMIN Collected: 02/23/2018 Status: F Source: [place] 5:40 AM [facility] REPOSITORY TYPE CODE TESTS RESULT OUT OF REFERENCE UNITS RANGE LAB L506.0500 20.0-40.0 mg/dL Low PREALBUMIN 15.0 Performed By: #### L500.2500, L506.0500 #### [facility] [address] [place], [place], [address] BEDSIDE GLUCOSE Collected: 02/23/2018 Status: F Source: [place] 12:49 AM [facility] REPOSITORY TYPE CODE TESTS RESULT OUT OF REFERENCE UNITS RANGE LAB L501.080 70-110 mg/dL High BEDSIDE GLU 169 Result Comment: MANAGEMENT OF PATIENT CARE PER NURSING PROTOCOL Performed By: #### L501.080 #### [facility] Point of Care [address] [place] [address] VANCOMYCIN, TROUGH Collected: 02/22/2018 Status: F Source: [place] LEVEL 11:30 AM [facility] REPOSITORY Order Comment: Time Medication is to be Given? 1200 TYPE CODE TESTS RESULT OUT OF RANGE REFERENCE UNITS LAB L501.8820 5.0-15.0 ug/mL Normal VANCO, TROUGH 11.5 Result Comment: VANCOMYCIN STANDARED DRUG THERAPY TROUGH LEVEL: 5.0 - 15.0 mg/L VANCOMYCIN HIGH INTENSITY THERAPY TROUGH LEVEL: 15.0 - 20.0 mg/L High Intensity therapy recommended for serious life threatening infections include: - Meningitis -Endocarditis -Pneumonia (Ventilator/Healtcare Associated) -Sepsis PLEASE CONTACT PHARMACY SERVICES (#[phone]) FOR INTERPRETATION OF RESULTS. Performed By: #### L501.8820 #### [facility] [address] [place], [place], [address] Observed: 02/22/2018 Status: F Source: [place] CULTURE, DEEP WOUND 12:00 AM [facility] REPOSITORY Order Date: 03/10/17 Comments: RIGHT LATERAL CHEST WALL/LATERAL BREAST ABSCESS Gram Stain Gram Stain 2+ Red Blood Cells Rare Gram positive cocci Wound Culture Copy of report sent to Infection Control Printer [id number] 02/24/18 0739 JONATHAN. ORGANISM 1: Meth. resistant Staph. aureus Amount Growth Rare Meth. resistant Staph. aureus: REACTION Benzylpenicillin NF >=0.5 R Cefoxitin *NF + Clindamycin $$ <=0.25 S Inducable Clindamycin Resistan - Erythromycin $ >=8 R Gentamicin $ <=0.5 S Levofloxacin $ <=0.12 S Linezolid $$$$ 2 S Oxacillin NF >=4 R Tigecycline $$$$ <=0.12 S Rifampin $$ <=0.5 S Tetracycline NF <=1 S Trimethoprim/Sulfametho $ <=10 S Vancomycin $ 1 S (NF) indicates non-formulary drug at [facility]. Approval by Infectious Disease Specialist required before non-formulary drugs may be ordered and/or dispensed. * CLSI guidelines does not recommend testing of cephalosporins. This interpretation is deduced from Beta-lactam/penicillin results. Cult, Anaerobic No anaerobic bacteria isolated. Performed By: #### M100.1500 #### [facility] [address] [place], [place], [address] ABSCESS (CHOOSE Observed: 02/22/2018 Status: F Source: [facility]) 12:00 AM [facility] REPOSITORY Patient: SANTIAGO SALGUERO : 1995 (/) Acct Num: [id number] Phys: NancyJu Unit Num: [id number] Loc: MS3 [id number] Specimen: [id number] Received: 02/22/181616 Spec Type: Abscess TISSUES TISSUES: Chest wall, NOS GROSS DESCRIPTION Received in fixative is one container labeled with the patient's name and designated right lateral chest wall/lateral breast abscess. The specimen consists of a piece of skin with underlying tissue measuring 5 x 4.5 cm and up to 5.5 cm in thickness. No skin lesion is identified. Sections do not reveal any mass lesion and shows a focal area of abscess formation. Hot Frame Tender sections are submitted in three cassettes. / SJ:mychal 02/23/18 TC:2 CPT: 87783, 41579 x2 HEADER OPERATION: Surgical preparation right lateral chest wall / lateral breast PRE-OP DIAGNOSIS: Right breast cellulitis and abscess TISSUE SUBMITTED: Right lateral chest wall/lateral breast abscess MICROSCOPIC DESCRIPTION Slides are reviewed. MICROSCOPIC DIAGNOSIS Right lateral chest wall/lateral breast abscess: Skin with underlying tissue with acute inflammation and abscess formation. Special stains for acid fast bacilli and fungi are negative for organisms; matched controls are appropriate. JUVE:mychal 02/24/18 Signed Winston Muller 02/24/18 <signature on file> Performed By: #### PABS #### [facility] [address] [place], [place], [address] Observed: 02/22/2018 Status: F Source: [place] PATEL, FUNGUS W/ 12:00 AM [facility] [id number] REPOSITORY Comments: RIGHT LATERAL CHEST WALL/LATERAL BREAST ABSCESS Is this test to exclude patient from TB Isolation? Lauri [id number] TESTING PERFORMED AT [facility]. ORIGINAL REPORT ON FILE IN LAB CONTAINS ADDITIONAL TEST SITE INFORMATION. CUF No yeast or mold isolated after [address] TESTING PERFORMED AT [facility]. ORIGINAL REPORT ON FILE IN LAB CONTAINS ADDITIONAL TEST SITE INFORMATION. Fungus Stain No yeast or mold observed. Performed By: #### M600.1900 #### [facility] [address] [place], [address] BEDSIDE GLUCOSE Collected: 02/21/2018 Status: F Source: [place] 7:01 [facility] REPOSITORY TYPE CODE TESTS RESULT OUT OF RANGE REFERENCE UNITS LAB L501.080 70-110 mg/dL Normal BEDSIDE GLU 97 Result Comment: MANAGEMENT OF PATIENT CARE PER NURSING PROTOCOL Performed By: #### L501.080 #### [facility] Point of Care [address] [place] [address] CBC W/DIFF, AUTOMATED Collected: 02/21/2018 Status: F Source: [place] 5:30 AM [facility] REPOSITORY TYPE CODE TESTS RESULT OUT OF RANGE REFERENCE UNITS LAB L100.1000 4.4-11.0 K/mm3 Normal WBC 8.0 LAB L100.1200 4.2-5.4 M/mm3 Low RBC 4.15 LAB L100.1300 12.0-15.0 g/dl Low HGB 10.9 LAB L100.1400 37-47 % Low HCT 34.8 LAB L100.1500 81-99 fL Normal MCV 83.9 LAB L100.1600 27.0-32.0 pg Low MCH 26.3 LAB L100.1700 32-36 g/gl Low MCHC 31.3 LAB L100.1810 11.6-14.6 % Normal RDW CV 13.7 LAB L100.1820 35.1-43.9 fl Normal RDW SD 42.4 LAB L100.1900 150-450 K/mm3 Normal PLT 164 LAB L100.2000 6.2-12.0 fl Normal MPV 10.5 LAB L100.2100 47-70 % High NEUT% 74.8 LAB L100.2200 19-41 % Low LY% 15.9 LAB L100.2300 0-10 % Normal MONO% 8.6 LAB L100.2400 0-5 % Normal EO% 0.5 LAB L100.2500 0-1 % Normal BASO% 0.1 LAB L100.2550 0.0-0.9 % Normal IM GRAN % 0.100 Result Comment: IG% - Immature Granulocytes (promyelocytes, myelocytes and metamyelocytes) > 1% indicates that a LEFT SHIFT is Present. LAB L100.2620 2.0-7.7 X10 3/uL Normal Absolute Neut 6.0 LAB L100.2720 0.83-4.51 X10 3/ul Normal Absolute Lymph 1.27 Performed By: #### L100.0100 #### [facility] [place], [address] BASIC METABOLIC Collected: 02/21/2018 Status: F Source: [place] PROFILE (BMP) 5:30 AM [facility] REPOSITORY TYPE CODE TESTS RESULT OUT OF RANGE REFERENCE UNITS LAB L501.0100 74-106 mg/dL Normal GLU 105 Result Comment: Fasting Glucose result from 100 to 125 mg/dL suggests IMPAIRED HOMEOSTASIS per A.D.A. criteria. Please note revised GLUCOSE reference range effective 2017. LAB L501.1000 7-18 mg/dL Low BUN 6 LAB L501.1100 0.55-1.02 mg/dL Normal CREAT,SERUM 0.76 Result Comment: The validity of the calculated GFR AND GFRAA in patients over 70 years has not been determined. Clinical correlation is essential. LAB L501.1110 >60 mL/min Normal EST GFR 98 Result Comment: Non- GFR Calc LAB L501.1115 >60 mL/min Normal EST GFR - AA 119 Result Comment: GFR Calc LAB L501.1255 ml/min Normal Estimated CRCL 106.85 LAB L501.1300 10-20 RATIO Low BUN/CRE 7.9 LAB L501.2200 8.5-10 mg/dL Low .1 CA 8.3 LAB L501.5300 136-14 mmol/L 5 NA Normal 139 LAB L501.5600 3.5-5. mmol/L Low 1 K 3.3 LAB L501.5900 98-107 mmol/L CL Normal 106 LAB L501.6100 21.0-3 mmol/L 2.0 CO2 Normal 25.0 LAB L501.6200 5-15 GAP Normal 8 Performed By: #### L500.2500 #### [facility] [address] [facility]. [place], [place], [address] MRSA WOUND DNA BY Collected: 02/21/2018 Status: F Source: [place] PCR 2:00 AM [facility] REPOSITORY Order Comment: Order Date: 02/21/18 RESULTS CALLED TO REBECCA JAY MS3 02/21/18 0407 Mana Moscoso. REPORT READ BACK BY SAME. Comments: rt lateral chest TYPE CODE TESTS RESULT OUT OF REFERENCE UNITS RANGE LAB L8200.1100 Negative High MRSA POSITIVE RESULT LAB L8200.1150 Negative High SA RESULT POSITIVE Performed By: #### L8200.1075 #### [facility] [address] [facility] [place], [address] Observed: 02/21/2018 Status: F Source: [place] CULTURE, DEEP WOUND 2:00 AM [facility] REPOSITORY Order Date: 02/21/18 Comments: wound rt lateral chest Gram Stain Gram Stain 1+ Gram positive cocci Wound Culture Copy of report sent to Infection Control Printer [id number] 02/23/18 1033 BLUCAS. Copy of report sent to Infection Control Printer [id number] 02/23/18 1034 BLUCAS. ORGANISM 1: Meth. resistant Staph. aureus Amount Growth 3+ Meth. resistant Staph. aureus: REACTION Benzylpenicillin NF >=0.5 R Cefoxitin *NF + Clindamycin $$ <=0.25 S Inducable Clindamycin Resistan - Erythromycin $ >=8 R Gentamicin $ <=0.5 S Levofloxacin $ <=0.12 S Linezolid $$$$ 2 S Oxacillin NF >=4 R Tigecycline $$$$ <=0.12 S Rifampin $$ <=0.5 S Tetracycline NF <=1 S Trimethoprim/Sulfametho $ <=10 S Vancomycin $ 1 S (NF) indicates non-formulary drug at [facility]. Approval by Infectious Disease Specialist required before non-formulary drugs may be ordered and/or dispensed. * CLSI guidelines does not recommend testing of cephalosporins. This interpretation is deduced from Beta-lactam/penicillin results. Cult, Anaerobic No anaerobic bacteria isolated. Performed By: #### M100.1500 #### [facility] [address] [place], [address] URINALYSIS, COMPLETE Collected: 02/21/2018 Status: F Source: [place] 1:35 AM [facility] REPOSITORY Order Comment: How was Urine Obtained? CLINICAL INVESTIGATOR TO SPECIFY TYPE CODE TESTS RESULT OUT OF RANGE REFERENCE UNITS LAB L400.3000 Yellow COLOR Normal Yellow LAB L400.3050 Clear Normal CLARITY Sl. Cloudy LAB L400.3200 Normal mg/dl Normal GLUCOSE, UR Normal LAB L400.3300 Negative mg/dL Normal BILIRUBIN URINE Negative LAB L400.3400 Negative mg/dl Normal KETONE UR Negative LAB L400.3465 1.002-1.030 Normal SP.GR. DIPSTX 1.005 LAB L400.3550 5.0 - 8.0 pH UR Normal 6.5 LAB L400.3600 Negative mg/dl High PROT 15 DIPSTX LAB L400.3700 Normal mg/dl Normal UROBILI Normal LAB L400.3750 Negative Normal NITRITE UR Negative LAB L400.3780 Negative /ul High OCCULT BLOOD-UR 250 LAB L400.3800 Negative /ul High LEUK ESTERASE 100 LAB L400.4050 0-5 /hpf WBC Normal 5-10 SEEN LAB L400.4100 0-5 /hpf Normal RBC-UA 0-5 SEEN LAB L400.4150 5-10 /hpf SQUAM Normal EPI 25-50 SEEN LAB L400.4300 None Seen /hpf 0 Normal BACTERIA SEEN LAB L400.4350 <or=2+ /hpf 0 Normal MUCUS, URINE SEEN Performed By: #### L400.0001 #### [facility] [address] [facility] [place], [address] HISTORY AND PHYSICAL Observed: 02/21/2018 Status: F Source: [place] EXAM 1:29 AM [facility] REPOSITORY [facility] Medical Records Department [address] [facility] [place] [address] History and Physical 02/21/18 0119 MR#: [id number] Acct: [id number] Name: SANTIAGO SALGUERO Rep #: [id number] : 1995 22 From: Moe Wilder MD PCP: Dario Clifton DO Status: ADM ROCKY Y [id number] Problem List (1) Cellulitis Status: Acute (2) Abscess of right breast Status: Acute (3) Depression Status: Chronic History of Present Illness Date of Admission: 02/21/18 Chief Complaint: Cellulitis The patient is a 22 year old female w/ h/o depression, prior back surgery and appendectomy admitted for right breast cellulitis and abscess. She noted swelling and redness of the right breast 3 days ago. It has gotten progressively worse with increase pain. Pain is dull aching and when touch, it is burning. Pain is worse with touch. Nothing improves the pain. Pain is constant and severe. She went to the ED yesterday and had I AND D of her right lateral chest abscess. However, despite drainage and being on antibiotic, she had increase pain and swelling. She also had fever and chill. She also had n/v. She went back to the ED for further evaluation. Past Medical History Past Medical History (Chronic Problems): Chronic Problems BMI 38.0-38.9,adult (Chronic) Depression (Chronic) Allergies No Known Allergies Allergy (Verified 02/20/18 20:27) Home Medications: Ambulatory Orders Medication Instructions Recorded bupropion HCl XL 300 mg 24 hr 300 mg PO DAILY #30 tab 08/19/17 tablet, extended release Cephalexin [Keflex] 500 mg PO Q6 #40 cap 02/19/18 Surgical History: appendectomy, - - Tubal ligation, back surgery for scoliosis Psychiatric History: No pertinent psych hx GUEST RELATIONS RECEPTIONIST History: No pertinent GUEST RELATIONS RECEPTIONIST history Smoking Status: Never smoker Tobacco Use: Secondhand - *Family History Maternal History Items: No pertinent history Paternal History Items: No pertinent history Review of Systems Constitutional: Reports: Chills, Fever. Denies: Weight Change HEENT: Denies: Head Aches, Sinus Congestion, Sinus Drainage Cardiovascular: Denies: Chest Pain, Palpitations Respiratory: Denies: Cough, Shortness of breath at rest, Sputum production Gastrointestinal: Denies: Abdominal Pain, Nausea, Vomiting Genitourinary: Denies: Dysuria Musculoskeletal: Denies: Joint Pain, Joint Tenderness Skin: Denies: Rash, Wounds Neurological: Denies: Numbness, Tingling, Focal weakness Psychiatric: Denies: Anxiety, Depression, Homicidal Ideations, Suicidal Ideations Hematologic/ Lymphatic: Denies: Easy Bruising, Easy Bleeding VTE Information - Inpt Only VTE Present on Admission: No VTE Mechan Device Prophylaxis: SCD's VTE Pharm Prophylaxis ordered?: Yes Patient Problems: Active and Suspected Problems Cellulitis (Acute) Abscess of right breast (Acute) - Physical Exam General: Alert, Oriented x3, Cooperative HEENT: Atraumatic, PERRLA, EOMI, Normocephalic Neck: Supple, No JVD, Negative Carotid Bruits Lungs: Clear to auscultation, Normal air movement Cardiovascular: Regular rate, No murmurs Abdomen: Bowel Sounds Present, Soft, Non Tender Extremities: No edema, Capillary Refill Less than 3 Seconds Skin: No breakdown, Incision Musculoskeletal: No Tenderness to Palpation of Joints or Extremities Neurological: Cranial nerves II-XII grossly intact Psych/Mental Status: Normal Affect, Appropriate Vital Signs Temp Pulse Resp BP Pulse Ox 98.9 F 92 18 129/76 H 99 02/20/18 20:22 02/20/18 23:12 02/20/18 23:12 02/20/18 23:12 02/20/18 23:12 Weight: 103.9 kg Body Mass Index (BMI) 36.9 Laboratory Tests Past 24 Hrs ESR 46 H POC Glucose POC Glucose 88 Assessment/Plan All Active Problems Cellulitis (Acute) Abscess of right breast (Acute) Acute pyelonephritis (Acute) Fever (Acute) Right flank pain (Acute) 22 year old female w/ h/o depression, prior back surgery and appendectomy admitted for right breast cellulitis and abscess. 1) Right breast cellulitis and abscess: S/p I AND D. Will get deep wound culture. Will start zosyn and vanco until culture / sensitive. Pain control. Supportive care. 2) Dysuria: Will get UA. Will monitor for fungal infection given antibiotics. Supportive care. 3) Depression: Resume home meds. Monitor. 4) Prophylaxis: SCD / Heparin. 02/21/18 0129 <Electronically signed by Moe Wilder MD> Date Moe Wilder MD Cosigner Signature: Date (if applicable) CC: Dario Clifton DO; Moe Wilder MD Signed ERYTHROCYTE SED RATE Collected: 02/21/2018 Status: F Source: [place] 12:24 AM [facility] REPOSITORY TYPE CODE TESTS RESULT OUT OF RANGE REFERENCE UNITS LAB L102.0000 0-20 mm/hr High SED RATE 46 Performed By: #### L101.9900 #### [facility] [address] [place], [place], [id number] HEMOGLOBIN A1C Collected: 02/21/2018 Status: F Source: [place] 12:24 AM [facility] REPOSITORY TYPE CODE TESTS RESULT OUT OF RANGE REFERENCE UNITS LAB L501.9985 4.2-6.3 % Normal HGB A1C 4.7 Performed By: #### L501.9985 #### [facility] [address] [place], [address] Observed: 02/21/2018 Status: F Source: [place] CULTURE, BLOOD (WB) 12:24 AM [facility] REPOSITORY BC No growth in 5 days. Performed By: #### M200.1000 #### [facility] [address] [place], [address] Observed: 02/21/2018 Status: F Source: [place] CULTURE, BLOOD (WB) 12:24 AM [facility] REPOSITORY BC No growth in 5 days. Performed By: #### M200.1000 #### [facility] [address] [place], [address] BEDSIDE GLUCOSE Collected: 02/21/2018 Status: F Source: [place] 12:10 AM [facility] REPOSITORY TYPE CODE TESTS RESULT OUT OF RANGE REFERENCE UNITS LAB L501.080 70-110 mg/dL Normal BEDSIDE GLU 88 Result Comment: MANAGEMENT OF PATIENT CARE PER NURSING PROTOCOL Performed By: #### L501.080 #### [facility] Point of Care [address] [place] [address] EMERGENCY DEPARTMENT Observed: 02/20/2018 Status: F Source: [place] SUMMARY 11:47 PM [facility] REPOSITORY [facility] Medical Records Department [address] [place] [address] Emergency Department Summary 02/20/18 2100 MR#: [id number] Acct: [id number] Name: SANTIAGO SALGUERO Rep #: [id number] : 1995 22 From: Jagdish Valdivia MD PCP: Dario Clifton DO Status: ADM ROCKY - ER Visit Summary Date of Service: 02/20/18 Chief Complaint: Fever and chills and worsening redness after incision and drainage of her right lateral chest wall subcu abscess yesterday History of Present Illness: The patient is a 22 F history of depression, prior back surgery and appendectomy. Patient was seen yesterday in the ER and incision and drainage of her right lateral chest wall abscess. At that time and minimal redness. Pus and blood was expressed from the wound. It was packed and she was started on Keflex. She states that now she has worse redness. That she has been taken antibiotic. And today had fever and chills. Also nausea vomiting. States more painful to site. Physical Examination: Well-appearing young female. Vital signs are stable afebrile. She does not look septic or toxic. Currently no acute distress. HEENT exam unremarkable neck nontender no lymphadenopathy. Lungs clear to auscultation bilaterally. Heart regular rate and rhythm no murmur rate about 90. Abdomen soft nontender nondistended normal bowel sounds no hernial signs. Right lateral chest wall midaxillary line there is chest wall abscess. There is tenderness to the site. There is cellulitis. This does look worse than it did yesterday. There is no necrotic skin. I do not feel any significant subcutaneous air. There is packing in place and a small amount of pus from the wound. The area involved is about 3 inches in wide and 5 inches in length. Her neurologic exam is normal. She is moving all 4 extremities. Back is unremarkable. No other rashes. Test Results: CBC shows a white count of 10. Normal H AND H. Platelet count of 137,000. Electrolytes are normal potassium 3.2. Normal gap. Normal creatinine. Emergency Department Course and Treatment: Patient was treated with morphine for pain. Started on IV Zosyn. Screening labs will be obtained also a CAT scan of her chest with IV contrast to evaluate the abscess. Treatment Plan: Aaron exam patient is doing well at 2232. The cellulitis has not gotten significantly worse. She has been given IV Zosyn. 2 different dosages IV morphine. I will speak to the hospitalist about admission. Disposition: Admission Impression: Right lateral chest wall cellulitis Status post right lateral chest wall abscess incision and drainage This note was generated with Nurego dictation software. It may contain incorrect words, spelling, and punctuation that were not noted in review of the chart prior to signing ED Disposition - Plan for ED Patient: Chief Complaint: Nausea/Vomiting Referrals: Dario Poe, DO [Primary Care Provider] - What to do if you have Problems For any increased pain, shortness of breath, bleeding, nausea or vomiting, chest pain, or any unexpected problems, contact your Primary Care Provider. Call [employer] [facility] ([phone]) or report to the closest Emergency Room. Call 911 if necessary. 02/20/18 8327 <Electronically signed by Jagdish Valdivia MD> Date Jagdish Valdivia MD Cosigner Signature (If Indicated): Date CC: Dario Clifton, DO BASIC METABOLIC Collected: 02/20/2018 Status: F Source: [place] PROFILE ([facility]) 9:55 PM [facility] REPOSITORY Order Comment: REDRAW. PREVIOUS SPECIMEN REJECTED DUE TO HEMOLYSIS. 02/20/180 Lennie Hernandez. TYPE CODE TESTS RESULT OUT OF RANGE REFERENCE UNITS LAB L501.0100 74-106 mg/dL Normal GLU 82 Result Comment: Please note revised GLUCOSE reference range effective 2017. LAB L501.1000 7-18 mg/dL Normal BUN 8 LAB L501.1100 0.55-1.02 mg/dL Normal CREAT,SERUM 0.86 Result Comment: The validity of the calculated GFR AND GFRAA in patients over 70 years has not been determined. Clinical correlation is essential. LAB L501.1110 >60 mL/min Normal EST GFR 85 Result Comment: Non- GFR Calc LAB L501.1115 >60 mL/min Normal EST GFR - AA 103 Result Comment: GFR Calc LAB L501.1255 ml/min Normal Estimated CRCL 94.43 LAB L501.1300 10-20 RATIO Low BUN/CRE 9.2 LAB L501.2200 8.5-10 mg/dL Normal .1 CA 8.8 LAB L501.5300 136-14 mmol/L Normal 5 NA 138 LAB L501.5600 3.5-5. mmol/L Low 1 K 3.2 LAB L501.5900 98-107 mmol/L Normal CL 105 LAB L501.6100 21.0-3 mmol/L Normal 2.0 CO2 25.0 LAB L501.6200 5-15 Normal GAP 8 Performed By: #### L500.2500 #### [facility] [address] [place], [address] CBC W/DIFF, AUTOMATED Collected: 02/20/2018 Status: F Source: [place] 9:27 PM [facility] REPOSITORY TYPE CODE TESTS RESULT OUT OF RANGE REFERENCE UNITS LAB L100.1000 4.4-11.0 K/mm3 Normal WBC 10.0 LAB L100.1200 4.2-5.4 M/mm3 Normal RBC 4.56 LAB L100.1300 12.0-15.0 g/dl Normal HGB 12.0 LAB L100.1400 37-47 % Normal HCT 38.4 LAB L100.1500 81-99 fL Normal MCV 84.2 LAB L100.1600 27.0-32.0 pg Low MCH 26.3 LAB L100.1700 32-36 g/gl Low MCHC 31.3 LAB L100.1810 11.6-14.6 % Normal RDW CV 13.9 LAB L100.1820 35.1-43.9 fl Normal RDW SD 42.2 LAB L100.1900 150-450 K/mm3 Low PLT 137 LAB L100.2000 6.2-12.0 fl Normal MPV 11.0 LAB L100.2100 47-70 % Normal NEUT% 67.8 LAB L100.2200 19-41 % Normal LY% 19.6 LAB L100.2300 0-10 % High MONO% 11.9 LAB L100.2400 0-5 % Normal EO% 0.5 LAB L100.2500 0-1 % Normal BASO% 0.0 LAB L100.2550 0.0-0.9 % Normal IM GRAN % 0.200 Result Comment: IG% - Immature Granulocytes (promyelocytes, myelocytes and metamyelocytes) > 1% indicates that a LEFT SHIFT is Present. LAB L100.2620 2.0-7.7 X10 3/uL Normal Absolute Neut 6.8 LAB L100.2720 0.83-4.51 X10 3/ul Normal Absolute Lymph 1.95 Performed By: #### L100.0100 #### [facility] [address] [place], [place], [address] CHEST WITH CONTRAST Observed: 02/20/2018 Status: F Source: [place] 8:59 PM [facility] REPOSITORY [facility] Imaging Services [address] [place] [address] Chest WITH Contrast MR#: [id number] Acct: [id number] Name: SANTIAGO SALGUERO Rep #: [id number] : 1995 F 22 From: Trenton Enriquez MD PCP: Dario Clifton DO Status: REG ER Study: Chest WITH Contrast Date of Exam: 02/20/18 Exam# [id number] Ordering Dr: Jagdish Valdivia MD STUDY: CT CHEST WITH CONTRAST REASON FOR EXAM: Female, 22 years old. Right lateral chest wall abscess. Status post incision and drainage. RADIATION DOSAGE (If Supplied By Facility): CTDIvol = ( 17.69 ) mGy, DLP = ( 659.57 ) mGycm TECHNIQUE: Transaxial imaging was performed following intravenous administration of 100ml ml of Isovue 300 contrast material. Coronal and sagittal reformatted images were created. Individualized dose optimization techniques were used for this CT. COMPARISON: None FINDINGS: There are no pulmonary infiltrates or pleural effusions. There are no pulmonary nodules or masses. There is no pneumothorax. The heart and pericardium are within normal limits. There is no mediastinal or hilar lymphadenopathy. There is no evidence of thoracic aortic aneurysm. Images through the upper abdomen demonstrate no significant abnormality. There is a 2.2 x 1.6 cm right axillary lymph node. There is subcutaneous stranding in the right lateral chest wall but no discrete fluid collection. This likely represents cellulitis. There are no destructive osseous lesions. There are spinal fusion rods in place. CT/Chest WITH Contrast IMPRESSION: Subcutaneous stranding in the right lateral chest wall but no discrete fluid collection. This likely represents cellulitis. Right axillary lymphadenopathy. Clear lungs. Electronically Signed: Trenton Enriquez, at 22:57 EDT Tel , Service support , CC: Jagdish Valdivia MD; Dario Clifton DO Numerical Control Drill Press Operator: Signed EMERGENCY DEPARTMENT Observed: 02/19/2018 Status: F Source: [place] SUMMARY 11:03 PM [facility] REPOSITORY [facility] Medical Records Department [address] [place] [address] Emergency Department Summary 02/19/182001 MR#: [id number] Acct: [id number] Name: SANTIAGO SALGUERO Rep #: [id number] : 1995 From: Jagdish Valdivia MD PCP: Dario Clifton DO Status: DEP ER - ER Visit Summary Date of Service: 02/19/18 Chief Complaint: Right lateral chest wall redness History of Present Illness: The patient is a 22 F several day history of redness and discomfort right lateral chest wall. She thinks she may have been bit by something in her sleep. No prior history. States it is uncomfortable. Denies any drainage. Physical Examination: Well-appearing young female. Vital signs are stable afebrile. No distress. H EENT exam unremarkable. Neck nontender. Lungs clear to auscultation bilaterally. Heart regular rate and rhythm no murmur. Abdomen soft nontender. Normal bowel sounds no peritoneal signs. Moving all 4 extremities neurovascular intact. Small bruise on her right anterior lower leg. No deformity. Neurologic exam normal. Right lateral chest wall there is a 1/2 inch wide by 3 inch long area of redness which could be an early abscess. It is tender palpation. Also any obvious fluctuance but there is indurated tissue. Test Results: None Emergency Department Course and Treatment: Procedure note. Right lateral chest wall abscess. Let was applied. Then locally anesthetized with subcu lidocaine. Area was cleaned. I made a 1 cm more to express pus and blood. Loculations were broken up with probing. And I placed several inches of quarter inch packing gauze. Patient tolerated procedure well. She will be given 1 dose of Keflex in the ER. Treatment Plan: Keflex 4 times daily for 10 days. Tylenol Motrin for pain. Follow-up with her primary care physician this week. Packing pulled out in 4 days. Disposition: Discharge Impression: Right lateral chest wall subcu abscess Incision and drainage by ER This note was generated with Nurego dictation software. It may contain incorrect words, spelling, and punctuation that were not noted in review of the chart prior to signing ED Disposition - Plan for ED Patient: Chief Complaint: Other, Pain/Inj Referrals: Dario Poe DO [Primary Care Provider] - What to do if you have Problems For any increased pain, shortness of breath, bleeding, nausea or vomiting, chest pain, or any unexpected problems, contact your Primary Care Provider. Call [facility] ([phone]) or report to the closest Emergency Room. Call 911 if necessary. 02/19/18 2303 <Electronically signed by Jagdish Valdivia MD> Date Jagdish Valdivia MD Cosigner Signature (If Indicated): Date CC: Dario Clifton DO DISCHARGE INSTRUCTION Observed: 02/19/2018 Status: F Source: [place] 11:03 PM [facility] REPOSITORY [facility] Medical Records Department [address] [place] [address] Discharge Instruction 02/19/182111 MR#: [id number] Acct: [id number] Name: SANTIAGO SALGUERO Rep #: [id number] : 1995 22 From: Jagdish Valdivia MD PCP: Dario Clifton DO Status: DEP ER ED Disposition - Plan for ED Patient: Disposition: Home or Assisted Living Chief Complaint: Other, Pain/Inj Instructions: ED Abscess IandD Prescriptions: Cephalexin [Keflex] 500 mg PO Q6 #40 cap Referrals: Dario Poe DO [Primary Care Provider] - 5-7 Days Additional Instructions: Tylenol Motrin for pain. Keflex 1 pill 4 times a day till gone. Full packing out in 4 days. Follow-up with primary care physician. Return to ER if feeling worse. What to do if you have Problems For any increased pain, shortness of breath, bleeding, nausea or vomiting, chest pain, or any unexpected problems, contact your Primary Care Provider. Call [facility] ([phone]) or report to the closest Emergency Room. Call 911 if necessary. 02/19/18 2303 <Electronically signed by Jagdish Valdivia MD> Date Jagdish Valdivia MD Cosigner Signature (If Indicated): Date CC: Dario Clifton, NURSING PROG Observed: 02/03/2018 Status: COMPLETED Source: [place] 12:51 PM [facility] OTHER [place] REPOSITORY HNO ID: [id number] Author: Manpreet NelsonRn) Boris, REBECCA Service: Nursing Author Type: Registered Nurse Type: Nursing Progress Note Filed: 02/03/2018 1:07 PM Note Text: Nursing Progress Note Patient Name: Santiago Salguero Patient Location: [place] Surgery/ME Surgery Daily Note: Pt c/o back hurting really bad, vss, alert, eating snack, want to talk to dr franks. Dr modi [phone] pt feels better, will call dr alfaro office later, vss, amb without diff This note was completed by: Manpreet Escalante, RN PT ED Observed: 02/03/2018 Status: COMPLETED Source: [place] 12:43 PM [facility] OTHER [place] REPOSITORY HNO ID: [id number] Author: Manpreet NelsonRn) Boris, REBECCA Service: Nursing Author Type: Registered Nurse Type: Patient Education Filed: 02/03/2018 12:43 PM Note Text: PATIENT EDUCATION TOPIC: PROCEDURE / SURGERY: Post-op Teaching: PATIENT NAME: Santiago Salguero PATIENT LOCATION: [place] Surgery/ME Surgery READINESS TO LEARN COGNITIVE ABILITY: Alert and oriented MOTIVATION TO LEARN: Interested FAMILY SUPPORT: Moderate - Family present but overwhelmed INSTRUCTION PROVIDED TO: Patient PATIENT LEARNS BEST BY: Individual Instruction Verbal Instruction FACTORS AFFECTING LEARNING: None PHYSICAL LIMITATIONS AFFECTING LEARNING: None LEARNING RESPONSE DIAGNOSIS: ADULT: PATIENT/FAMILY RESPONSE: Verbalizes understanding of: METHOD OF INSTRUCTION: Individual instruction Verbal instruction FOLLOW-UP PLAN: Patient instructed to call with any further issues Follow-up with Primary Care INSTRUCTIONAL AIDS USED: NA SUPPLEMENTAL MATERIAL PROVIDED TO PATIENT: None REFERRAL (RECOMMENDATION): None Electronically Signed By: Manpreet Escalante RN XR FLUOROSCOPY Observed: 02/03/2018 Status: F Source: [place] 12:36 PM [facility] REPOSITORY * * *Final Report* * * DATE OF EXAM: Feb 03 2018 12:36PM MDR [id number] - XR FLUOROSCOPY / PROCEDURE REASON: BILATERAL SACROILIAC NERVE BLOCKS FOR PAIN * * * * Physician Interpretation * * * * INDICATION: BILATERAL SACROILIAC NERVE BLOCKS FOR PAIN TECHNIQUE: Fluoroscopy with 3 views of the SI joints Fluoroscopic Radiation Summary: Plane A, Air Kerma: 17.9 mGy Dose Area Product (DAP): 1590.3 mGy*cmS2 Fluoro time: 0:35 min:sec FINDINGS/ IMPRESSION: [place] with injected contrast overlies both SI joints. Please refer to the performing LIP's report. Numerical Control Drill Press Operator: PSCB Transcribe Date/Time: Feb 03 2018 3:27P Dictated by : ROMELIA ZAMORA MD This examination was interpreted and the report reviewed and electronically signed by: ROMELIA ZAMORA MD on Feb 03 2018 3:27PM EST [id number] OPERATIVE NO Observed: 02/03/2018 Status: COMPLETED Source: [place] 12:34 PM [facility] REPOSITORY HNO ID: [id number] Author: Gil Franks Service: Pain Management Author Type: Physician Type: Operative Report Filed: 02/03/2018 12:35 PM Note Text: PATIENT NAME: Santiago Salguero SERVICE DATE: 02/03/2018 PROCEDURE NOTE PREOPERATIVE DIAGNOSIS(ES) SI joint pain. SI joint inflammation SI joint dysfunction POSTOPERATIVE DIAGNOSIS(ES): SAME OPERATION: Bilateral SacroiliacJoint Injection under fluoroscopy. ANESTHESIA: Versed 3 mg, fentanyl 100mcg IV INDICATIONS: Santiago Salguero presents for SI joint injection. The pain is persistent over the SI joint. The patient denies any changes or new pain complaints since the last encounter. The plan is to proceed with Bilateral SI joint injection. The risks and benefits were discussed with the patient in detail. The patient understands and wishes to proceed. OPERATIVE PROCEDURE: The patient was brought to OR. The patient was positioned prone on the fluoroscopy table. Continuous hemodynamic monitoring was initiated including blood pressure, EKG, and pulse oximetry. IV sedation was administered incrementally to allow the patient to remain comfortable and conversant throughout the procedure. The lumbosacral area was prepped and draped into a sterile field. The inferior pole of the each sacroiliac joint was identified by cephalo-oblique fluoroscopy. The skin overlying both sacroiliac joint was anesthetized using 3 cc of lidocaine 1%. A 22 gauge, 3 1/2 inch spinal needle was slowly advanced through the sacroiliac joint capsule under fluoroscopic guidance. The needle position was confirmed using oblique, AP and lateral fluoroscopic imaging. This was repeated on the contralateral side using the same technique. Negative aspiration was confirmed. 0.5 cc of Omnipaque 300 was injected confirming intra-articular contrast spread in both joints. A combination of 2.5 cc of Bupivacaine 0.25% and 20 mg kenalog was easily injected into each of the joints. No difficulty was encountered. The needles were removed intact and bleeding was nil. The patient tolerated the procedure well. A sterile dressing was applied. The patient was taken to the recovery room in stable condition. EBL: nil Start time: 12:20 PM End time: 12:32 PM I was present the entire time and personally performed the procedure. SIGNATURE: Gil Franks MD DATE: February 03, 2018 TIME: 12:34 PM HISTORY PHYSICAL Observed: 02/03/2018 Status: COMPLETED Source: [place] 12:12 PM [facility] OTHER CAMPUS REPOSITORY O ID: [id number] Author: Gil Franks Service: Pain Management Author Type: Physician Type: HANDP Filed: 02/03/2018 12:12 PM Note Text: HISTORY AND PHYSICAL EXAMINATION PATIENT NAME: Santiago Salguero DATE of SERVICE: 02/03/2018 Santiago Salguero is here for the pain mangement procedure. The patient presents with persistent pain complaints. Santiago Salguero denies any interval changes or new pain complaints or focal neurologic deficits. PAST MEDICAL HISTORY Diagnosis Date - Maternal anemia in , antepartum 11/14/2013 - Mild preeclampsia 01/23/2014 - Miscarriage - depression - Pyelonephritis 11/28/2013 - Scoliosis PAST SURGICAL HISTORY Procedure Laterality Date - APPENDECTOMY 07/22/2009 Dr. Rizzo - BACK SURGERY HX 12/2006 for scoloisis. Social History Marital status: Single Spouse name: Years of education: 12 Number of children: 2 Occupational History Occupation Employer Comment [employer] Social History Main Topics Smoking status: Never Smoker Smokeless tobacco: Never Used Comment: Dad smokes Alcohol use: No Drug use: No Sexual activity: Yes Partners with: Male FAMILY HISTORY Problem Relation Age of Onset - Asthma Mother - Heart Mother - Lipids Mother - Psychiatry Mother BIPOLAR WITH SUIIDAL IDEATION - Stroke Mother - Hypertension Father - Arthritis Father - Diabetes Paternal Grandmother - Diabetes Paternal Aunt ALLERGIES No Known Allergies Current Facility-Administered Medications: NaCl 0.9% iv infusion 30 mL/hr INTRAVENOUS CONTINUOUS Physical Exam: Performed in conjunction with observation. The patient is alert and oriented x3. The patient is in no acute distress. Neck: Supple. The range of motion is intact. Lungs: clear CVR: RRR. Extremities: no reported edema or erythema. Examination indicates no changes Impression: Chronic SI joint pain Plan: The informed consent has been obtained. The plan is to proceed with the procedure as planned. SIGNATURE: Gil Franks MD DATE: February 03, 2018 TIME: 12:12 PM PT ED Observed: 02/03/2018 Status: COMPLETED Source: [place] 11:25 AM CLINIC OTHER [place] REPOSITORY HNO ID: [id number] Author: Damian (Rebecca) REBECCA Caldwell Service: Nursing Author Type: Registered Nurse Type: Patient Education Filed: 02/03/2018 11:26 AM Note Text: PRE OP LEARNING ASSESSMENT PROCEDURE/SURGERY: SURGERY: Pain block READINESS TO LEARN COGNITIVE ABILITY: Alert and oriented MOTIVATION TO LEARN: Eager FAMILY SUPPORT: High - Very involved in pt care PATIENT LEARNS BEST BY: Written Instruction - Hand-outs Verbal Instruction FACTORS AFFECTING LEARNING: None PHYSICAL LIMITATIONS AFFECTING LEARNING: None Electronically Signed By: Damian Caldwell RN In Department: [facility] Observed: 01/20/2018 Status: COMPLETED Source: [place] 12:00 AM CLINIC OTHER [place] REPOSITORY Patient:Santiago Salguero MRN: <[id number]> Height:5' 5(1.651 m) Weight:238 lb 1.6 oz (108 kg) Outpatient Medications as of 02/03/18: buPROPion XL (WELLBUTRIN XL) 300 mg 24 hr tablet Admission/Clinic Administered Medications as of 02/03/18: NaCl 0.9% iv infusion Problem List: Hx of preeclampsia, prior , currently [O09.299] Obesity in [O99.210] Short interval between pregnancies affecting , antepartum [O09.899] History of depression [Z86.59] Nausea and vomiting during [O21.9] History of back surgery [Z98.890] Patient requested diagnostic testing [Z01.89] History of kidney stones [Z87.442] Back pain affecting [O26.899, M54.9] SI (sacroiliac) joint dysfunction [M53.3] History of lumbar spinal fusion [Z98.1] Allergies: No Known Allergies Date Verified:02/03/18 Lab Values No results within the last 30 days for the following basenames: K,HCT Progress Notes ([facility]): Zenon Araujo DO 01/06/2018 8:48 AM Signed Santiago is 22 year old female presents with the following : CC: right eye- lower lid is red, swollen, tender Symptoms began 2 day(s) ago and gradually worsening since that time. NO vision loss, fever, or pain with occular movement. PAST MEDICAL HISTORY Diagnosis Date - Maternal anemia in , antepartum 11/14/2013 - Mild preeclampsia 01/23/2014 - Miscarriage - depression - Pyelonephritis 11/28/2013 - Scoliosis PAST SURGICAL HISTORY Procedure Laterality Date - APPENDECTOMY 07/22/2009 Dr. Rizzo - BACK SURGERY HX 12/2006 for scoloisis. Social History Marital status: Single Spouse name: Years of education: 12 Number of children: 2 Occupational History Occupation Employer Comment [employer]* Social History Main Topics Smoking status: Never Smoker Smokeless tobacco: Never Used Comment: Dad smokes Alcohol use: No Drug use: No Sexual activity: Yes Partners with: Male Current Outpatient Prescriptions on File Prior to Visit: baclofen (LIORESAL) 10 mg tablet Take 1 tablet by mouth twice daily. buPROPion XL (WELLBUTRIN XL) 300 mg 24 hr tablet Take 300 mg by mouth once daily. No current facility-administered medications on file prior to visit. BP 112/78 Pulse 70 Temp 36.6 ?C (97.9 ?F) (Tympanic) Resp 18 Wt 108 kg (238 lb) BMI 39.61 kg/m? Exam: General Appearance: alert and active in no apparent distress Skin: Negative for lesions, rash, and itching. Hydration: well hydrated Ears: External ears normal, canals clear Nose / Sinus: Nares normal. Septum midline. Mucosa normal. No drainage or sinus tenderness. Eye- lower lid is erythemetous with hordeolum. Mild tenderness to palpation. Normal Red reflex. EOMI Assessment: Hordeolum right lower lid- extending to periorbital region Plan: Patient's request for medication is as follows Signed Prescriptions Disp Refills ofloxacin (OCUFLOX) 0.3 % ophthalmic solution 1 Bottle 0 Sig: Use 2 Drops in the right eye every 4 hours for 7 days. sulfamethoxazole-trimethoprim (BACTRIM DS) 800-160 mg per tablet 20 tablet 0 Sig: Take 1 tablet by mouth twice daily for 10 days. Zenon Araujo DO PROGRESS Observed: 01/06/2018 Status: COMPLETED Source: [place] 8:[address] [facility] REPOSITORY [facility] ID: [id number] Author: Zenon Araujo V Service: (none) Author Type: Physician Type: Progress Notes Filed: 01/06/2018 8:48 AM Note Text: Santiago is 22 year old female presents with the following : CC: right eye- lower lid is red, swollen, tender Symptoms began 2 day(s) ago and gradually worsening since that time. NO vision loss, fever, or pain with occular movement. PAST MEDICAL HISTORY Diagnosis Date - Maternal anemia in , antepartum 11/14/2013 - Mild preeclampsia 01/23/2014 - Miscarriage - depression - Pyelonephritis 11/28/2013 - Scoliosis PAST SURGICAL HISTORY Procedure Laterality Date - APPENDECTOMY 07/22/2009 Dr. Rizzo - BACK SURGERY HX 12/2006 for scoloisis. Social History Marital status: Single Spouse name: Years of education: 12 Number of children: 2 Occupational History Occupation Employer Comment [employer]* Social History Main Topics Smoking status: Never Smoker Smokeless tobacco: Never Used Comment: Dad smokes Alcohol use: No Drug use: No Sexual activity: Yes Partners with: Male Current Outpatient Prescriptions on File Prior to Visit: baclofen (LIORESAL) 10 mg tablet Take 1 tablet by mouth twice daily. buPROPion XL (WELLBUTRIN XL) 300 mg 24 hr tablet Take 300 mg by mouth once daily. No current facility-administered medications on file prior to visit. BP 112/78 Pulse 70 Temp 36.6 ?C (97.9 ?F) (Tympanic) Resp 18 Wt 108 kg (238 lb) BMI 39.61 kg/m? Exam: General Appearance: alert and active in no apparent distress Skin: Negative for lesions, rash, and itching. Hydration: well hydrated Ears: External ears normal, canals clear Nose / Sinus: Nares normal. Septum midline. Mucosa normal. No drainage or sinus tenderness. Eye- lower lid is erythemetous with hordeolum. Mild tenderness to palpation. Normal Red reflex. EOMI Assessment: Hordeolum right lower lid- extending to periorbital region Plan: Patient's request for medication is as follows Signed Prescriptions Disp Refills ofloxacin (OCUFLOX) 0.3 % ophthalmic solution 1 Bottle 0 Sig: Use 2 Drops in the right eye every 4 hours for 7 days. sulfamethoxazole-trimethoprim (BACTRIM DS) 800-160 mg per tablet 20 tablet 0 Sig: Take 1 tablet by mouth twice daily for 10 days. Zneon Araujo DO CNOV Observed: 01/06/2018 Status: COMPLETED Source: [place] 8:[address] [facility] REPOSITORY Office Visit (WSTR) SANTIAGO SALGUERO ([id number]) 1995 F Date Time Provider Department 01/06/18 8:15 AM ZENON ARAUJO V MADELYN During your visit today, we recorded the following information about you: Temperature Pulse Respiration Blood pressure 97.9 degrees 70/minute 18/minute 112/78 Weight 108 kg Zenon Araujo DO 01/06/2018 8:48 AM Signed Santiago is 22 year old female presents with the following : CC: right eye- lower lid is red, swollen, tender Symptoms began 2 day(s) ago and gradually worsening since that time. NO vision loss, fever, or pain with occular movement. PAST MEDICAL HISTORY Diagnosis Date - Maternal anemia in , antepartum 11/14/2013 - Mild preeclampsia 01/23/2014 - Miscarriage - depression - Pyelonephritis 11/28/2013 - Scoliosis PAST SURGICAL HISTORY Procedure Laterality Date - APPENDECTOMY 07/22/2009 Dr. Rizzo - BACK SURGERY HX 12/2006 for scoloisis. Social History Marital status: Single Spouse name: Years of education: 12 Number of children: 2 Occupational History Occupation Employer Comment [employer]* Social History Main Topics Smoking status: Never Smoker Smokeless tobacco: Never Used Comment: Dad smokes Alcohol use: No Drug use: No Sexual activity: Yes Partners with: Male Current Outpatient Prescriptions on File Prior to Visit: baclofen (LIORESAL) 10 mg tablet Take 1 tablet by mouth twice daily. buPROPion XL (WELLBUTRIN XL) 300 mg 24 hr tablet Take 300 mg by mouth once daily. No current facility-administered medications on file prior to visit. BP 112/78 Pulse 70 Temp 36.6 ?C (97.9 ?F) (Tympanic) Resp 18 Wt 108 kg (238 lb) BMI 39.61 kg/m? Exam: General Appearance: alert and active in no apparent distress Skin: Negative for lesions, rash, and itching. Hydration: well hydrated Ears: External ears normal, canals clear Nose / Sinus: Nares normal. Septum midline. Mucosa normal. No drainage or sinus tenderness. Eye- lower lid is erythemetous with hordeolum. Mild tenderness to palpation. Normal Red reflex. EOMI Assessment: Hordeolum right lower lid- extending to periorbital region Plan: Patient's request for medication is as follows Signed Prescriptions Disp Refills ofloxacin (OCUFLOX) 0.3 % ophthalmic solution 1 Bottle 0 Sig: Use 2 Drops in the right eye every 4 hours for 7 days. sulfamethoxazole-trimethoprim (BACTRIM DS) 800-160 mg per tablet 20 tablet 0 Sig: Take 1 tablet by mouth twice daily for 10 days. Zenon Araujo DO Referring Provider: SELF [200] Allergies As of Date: 01/06/2018 (No Known Allergies) Date Reviewed: 01/06/2018 Reviewed by: Pascale Sweeney LPN - Fully Assessed Reason for Visit: sore in right eye [Other] Cmt: x 4 days Primary Visit Diagnosis:Hordeolum externum of right lower eyelid [H00.012] Order(s):ofloxacin (OCUFLOX) 0.3 % ophthalmic solutionUse 2 Drops in the right eye every 4 hours for 7 days.Disp: 1 BottleRfl: 0 sulfamethoxazole-trimethoprim (BACTRIM DS) 800-160 mg per tabletTake 1 tablet by mouth twice daily for 10 days.Disp: 20 tabletRfl: 0 Prescriptions as of 01/06/2018 Sig: BACLOFEN 10 MG TABLET Take 1 tablet by mouth twice * BUPROPION XL 300 MG 24 HR TAB Take 300 mg by mouth once praveen* OFLOXACIN 0.3 % EYE DROPS Use 2 Drops in the right eye * SULFAMETHOXAZOLE 800 MG-TRIME* Take 1 tablet by mouth twice * Problem List As Of Date 01/06/2018 Noted Resolved Scoliosis (and kyphoscoliosis), idiopathic [M41*INVALID FOR*11/10/2016 More... Rubella non-immune status, antepartum [O99.89, *INVALID FOR*02/26/2015 More... Maternal anemia in , antepartum [O99.0*INVALID FOR*02/26/2015 More... Pyelonephritis [N12] INVALID FOR*02/26/2015 More... Kidney stones [N20.0] INVALID FOR*02/26/2015 Chronic low back pain [M54.5, G89.29] INVALID FOR*11/10/2016 Mild preeclampsia [O14.00] INVALID FOR*02/26/2015 More... Missed [O02.1] INVALID FOR*12/11/2015 Hx of preeclampsia, prior , currently *INVALID FOR* More... Encounter for supervision of normal *INVALID FOR*04/15/2016 Obesity in [O99.210] INVALID FOR* More... Short interval between pregnancies affecting pr*INVALID FOR* More... History of depression [Z86.59] INVALID FOR* More... Nausea and vomiting during [O21.9] INVALID FOR* More... History of back surgery [Z98.890] INVALID FOR* More... Patient requested diagnostic testing [Z01.89] INVALID FOR* More... History of kidney stones [Z87.442] INVALID FOR* More... Back pain affecting [O26.899, M54.9] INVALID FOR* SI (sacroiliac) joint dysfunction [M53.3] INVALID FOR* More... History of lumbar spinal fusion [Z98.1] INVALID FOR* More... Prescriptions ordered this encounter Disp Refills Start End OFLOXACIN 0.3 % EYE DROPS 1 Saul* 0 01/06/2018 01/13/2018 Route: RIGHT EYE Sig: Use 2 Drops in the right eye every 4 hours for 7 days. SULFAMETHOXAZOLE 800 MG-TRIMETHOPRIM* 20 t* 0 01/06/2018 01/16/2018 Cmt: Ok to give generic equivalent Route: ORAL Sig: Take 1 tablet by mouth twice daily for 10 days. Encounter Status:Closed by ZENON ARAUJO DO, V on 01/06/18 CNOV Observed: 12/29/2017 Status: COMPLETED Source: [place] 2:[address] [facility] REPOSITORY Office Visit (PNMDNA) SANTIAGO SALGUERO ([id number]) 1995 F Date Time Provider Department 12/29/17 2:40 PM GIL FRANKS P[facility] During your visit today, we recorded the following information about you: Pulse Weight Height 90/minute 108.3 kg 1.651 m Gil Franks MD 12/29/2017 3:35 PM Addendum [facility] Date: December 29, 2017 - 2:37 PM Santiago Salguero is seen in consultation requested by Dr. Adair Good (Yesi Alfonso for an opinion regarding chronic lower back pain. My final recommendations will be communicated back to the requesting physician by way of shared medical record or via US mail. Chief Complaint: Patient presents with: New Patient: Chronic back pain [place] thigh pain SUBJECTIVE: Santiago Salguero, is a 22 year old year old with a history of none, who presents with lower back pain. The pain started 17 years ago, following following a surgical procedure (back).and is worsening after her recent . . Her pain is located in the low back lumbar region and radiates down the posterior leg. The pain is described as aching, excruciating, radiating, severe, sharp, soreness, shooting, stabbing, throbbing and spasms. The pain intensity is rated 8. The pain is exacerbated by activity, standing, walking, sitting, arising from a sitting position, lifting, twisting, flexion, driving/riding in car, entering/exiting a car, lying, mornings, pain is constant and changes in weather and relieved by standing and a hot shower. Symptoms interfere with physical activity, work, sexual relations, walking, sleeping, sitting, bathing, driving, cooking, household cleaning, reaching for shelves and lifting. 90% pain in spine vs 10% pain in legs. Obtained by Lakeisha Valerio Ma by interview and using data storage specialist from patient completed questionnaire I have reviewed, confirmed and edited the preliminary information with the patient: yes. In addition the patient reports no additional concerns. Litigation: No. Prior pain treatment has included physical therapy with no relief, Dates: 2013 and medications - opioids with minimal relief. She had relief from the following interventions: None. ALLERGIES No Known Allergies Current Medications: Pain medications reviewed and reconciled in the medication list: Yes. Current Outpatient Prescriptions: buPROPion XL (WELLBUTRIN XL) 300 mg 24 hr tablet Take 300 mg by mouth once daily. HYDROcodone-acetaminophen (NORCO) 5-325 mg per tablet Take 1 tablet by mouth three times daily as needed for Pain for up to 7 days. baclofen (LIORESAL) 10 mg tablet Take 1 tablet by mouth twice daily. No current facility-administered medications for this visit. PAST MEDICAL HISTORY Diagnosis Date - Maternal anemia in , antepartum 11/14/2013 - Mild preeclampsia 01/23/2014 - Miscarriage - depression - Pyelonephritis 11/28/2013 - Scoliosis PAST SURGICAL HISTORY Procedure Laterality Date - APPENDECTOMY 07/22/2009 Dr. Rizzo - BACK SURGERY HX 12/2006 for scoloisis. FAMILY HISTORY Problem Relation Age of Onset - Asthma Mother - Heart Mother - Lipids Mother - Psychiatry Mother BIPOLAR WITH SUIIDAL IDEATION - Stroke Mother - Hypertension Father - Arthritis Father - Diabetes Paternal Grandmother - Diabetes Paternal Aunt Social History: Alcohol Use: No Tobacco Use: Never (Dad smokes) Drug Use: No Employer And Job Title: [employer] Years Of Education Completed: 12 years Marital Status: Single with 2 children REVIEW OF SYSTEMS: Constitutional: (-) Fever (-) Night Sweats (+) Weight Gain (-) Weight Loss (-) Fatigue Cardiovascular: (-) Chest Pain (-) Palpitations (-) Lightheadedness (+) Swelling of Ankles (-) Hx Heart Surgery Respiratory: (-) Shortness of Breath (-) Cough (-) Wheezing (-) Snoring Gastrointestinal: (-) Incontinence (-) Abdominal Pain (-) Diarrhea (-) Constipation (-) Nausea/Vomiting (-) Heart Burn Endocrine: (-) Thyroid Disorder (-) Diabetes Hematologic: (-) Prolonged Bleeding (-) Easy Bruising Genitourinary: (-) Incontinence (-) Frequency (-) Urinary Urgency Skin: (-) Rashes (-) Itching (-) Other Lesions Neurologic: (-) Headache (-) Double Vision (-) Confusion (-) Paralysis (-) Vertigo (-) Syncope Psychiatric: (+) Depression (+) Anxiety (-) Delusions (-) Hallucinations (-) Suicidal Thoughts Lakeisha Valerio Ma OARRS Report reviewed: Yes Narcotic Agreement reviewed and signed?: N/A Baseline Urine Toxicology obtained: N/A Urine Panel: No results found for: UQCANN, UQBNZL, OEO2NWM, UQAMPH, UQMAMP, UQBUPRE, UQNORBUP, UQMTHD, UQEDDP, UQTRAM, UQDTRM, UQFNTL, UQNFTL, UQCODE, UQMORP, UQDCDN, UQHCOD, UQOXYC, UQHMOR, UQOXYM, UQCREA, UQPH, UQSPGR, UQOXID, UQSPQ The pain panel was N/A I have reviewed, confirmed and edited the preliminary information with the patient: OBJECTIVE: PHYSICAL EXAMINATION: Pulse 90 Ht 5' 5 (1.65m) Wt 238 lb 12.8 oz (108.3kg) SpO2 99% BMI 39.74 kg/(m2). General: Well-appearing, alert, in no acute distress Skin: Skin color, texture, turgor normal, no rashes or lesions HEENT: Normocephalic, atraumatic, sclera nonicteric CV: Regular rate and rhythm -Pulses: +2 and equal bilaterally Resp: Breathing unlabored, normal chest excursion. GI: Abdomen soft, not distended nontender : not examined Lymphatic:No lymphadema Musculoskeletal Neck: Posture and spinal curves are normal, Supple, normal range of motion, non-tender Back: Posture and spinal curves are abnormal; flat back, scoliosis, limited range of motion without reproducible pain, moderate pain to palpation of the lumbar spine , tender with spasm to the left AND right side(s), straight leg raising test is negative bilaterally Positive bilateral PSIS tenderness. Positive sacral thrust. Positive Juan's bilaterally. Extremities: Normal without deformity, edema or skin discoloration Neurological: Mental Status: Alert and oriented x3, Appropriate to topic Cranial Nerves: 2 through 12 intact Motor Strength:Motor strength and tone are 5/5 throughout Sensory:Sensation was intact to light touch all throughout Gait: normal Medical record and diagnostic tests reviewed for today's visit: The [facility] EMR was reviewed during the visit IMAGING STUDIES: No new imaging studies were reviewed during this office visit. ASSESSMENT: (M53.3) SI (sacroiliac) joint dysfunction (primary encounter diagnosis) (O26.899, M54.9) Back pain affecting , antepartum (M41.116) Juvenile idiopathic scoliosis of lumbar region (Z98.1) History of lumbar spinal fusion (M54.42, G89.29) Chronic left-sided low back pain with left- sided sciatica (Z98.1) History of fusion of thoracic spine (Z98.1) History of lumbar fusion (R29.898) Weakness of left leg (M47.817) Facet arthritis, degenerative, L5-S1 level, lumbosacral spine Discussion: A discussion was entertained regarding multicomponent back pain source. Discussed conservative options and focus on improvement of function. Discussed the rationale behind interventional approach and how it can facilitate improvement of pain but also diagnostic information that procedures provide. superintendent container terminal use of any opioid pain medication is discouraged in chronic benign pain PLAN: 1. She has multiple issues and multi pain component was discussed. Based on her current presentation, injection options were discussed. 2. Patient will course of [place] was written. Do not recommend long-term opioid therapy. Signed Prescriptions Disp Refills HYDROcodone-acetaminophen (NORCO) 5-325 mg per tablet 21 tablet 0 Sig: Take 1 tablet by mouth three times daily as needed for Pain for up to 7 days. JANETT Class: C-II DULCE MARIA: No baclofen (LIORESAL) 10 mg tablet 60 tablet 0 Sig: Take 1 tablet by mouth twice daily. 3. Pain interventional procedure recommended: Bilateral sacroiliac joint injection. 4. Encouraged activity as tolerated and encouraged exercise program. A brochure for SI joint exercise was given. 5. Follow up:3 months for an office visit. The above plan and management options were discussed with patient. The patient is in agreement with the above and verbalized understanding. I have discussed and confirmed the above treatment plan with the patient. and I have reviewed the nurses notes and I am aware of the family/social history. Gil Franks MD December 29, 2017 cc: Adair Alfonso PA-C [address] [facility] [address] Referring Provider: ADAIR ALFONSO) [[id number]] Allergies As of Date: 12/29/2017 (No Known Allergies) Date Reviewed: 12/29/2017 Reviewed by: Lakeisha Valerio Ma - Fully Assessed Reason for Visit: New Patient [172] Cmt: Chronic back pain vinita thigh pain Primary Visit Diagnosis:SI (sacroiliac) joint dysfunction [M53.3] Other Visit Diagnoses:Back pain affecting , antepartum [O26.899, M54.9] Juvenile idiopathic scoliosis of lumbar region [M41.116] History of lumbar spinal fusion [Z98.1] Chronic left-sided low back pain with left-sided sciatica [M54.42, G89.29] History of fusion of thoracic spine [Z98.1] History of lumbar fusion [Z98.1] Weakness of left leg [R29.898] Facet arthritis, degenerative, L5- S1 level, lumbosacral spine [M47.817] Order(s):INJECTION PROCEDURE FOR SACROILIAC [[id number]] Order #: [id number] FUTURE HYDROcodone-acetaminophen (NORCO) 5-325 mg per tabletTake 1 tablet by mouth three times daily as needed for Pain for up to 7 days.Disp: 21 tabletRfl: 0 baclofen (LIORESAL) 10 mg tabletTake 1 tablet by mouth twice daily.Disp: 60 tabletRfl: 0 Prescriptions as of 12/29/2017 Sig: BUPROPION XL 300 MG 24 HR TAB Take 300 mg by mouth once praveen* HYDROCODONE 5 MG-ACETAMINOPHE* Take 1 tablet by mouth three * BACLOFEN 10 MG TABLET Take 1 tablet by mouth twice * Problem List As Of Date 12/29/2017 Noted Resolved Scoliosis (and kyphoscoliosis), idiopathic [M41*INVALID FOR*11/10/2016 More... Rubella non-immune status, antepartum [O99.89, *INVALID FOR*02/26/2015 More... Maternal anemia in , antepartum [O99.0*INVALID FOR*02/26/2015 More... Pyelonephritis [N12] INVALID FOR*02/26/2015 More... Kidney stones [N20.0] INVALID FOR*02/26/2015 Chronic low back pain [M54.5, G89.29] INVALID FOR*11/10/2016 Mild preeclampsia [O14.00] INVALID FOR*02/26/2015 More... Missed [O02.1] INVALID FOR*12/11/2015 Hx of preeclampsia, prior , currently *INVALID FOR* More... Encounter for supervision of normal *INVALID FOR*04/15/2016 Obesity in [O99.210] INVALID FOR* More... Short interval between pregnancies affecting pr*INVALID FOR* More... History of depression [Z86.59] INVALID FOR* More... Nausea and vomiting during [O21.9] INVALID FOR* More... History of back surgery [Z98.890] INVALID FOR* More... Patient requested diagnostic testing [Z01.89] INVALID FOR* More... History of kidney stones [Z87.442] INVALID FOR* More... Back pain affecting [O26.899, M54.9] INVALID FOR* Prescriptions ordered this encounter Disp Refills Start End HYDROCODONE 5 MG-ACETAMINOPHEN 325 M* 21 t* 0 12/29/2017 01/05/2018 Class: Print RX Route: ORAL Sig: Take 1 tablet by mouth three times daily as needed for Pain for up to 7 days. BACLOFEN 10 MG TABLET 60 t* 0 12/29/2017 01/28/2018 Route: ORAL Sig: Take 1 tablet by mouth twice daily. Medications Discontinued During This Encounter HYDROcodone-acetaminophen (NORCO) 5-* 14 t* 0 12/22/2017 12/29/2017 Class: Print RX Route: ORAL Sig: Take 1 tablet by mouth twice daily as needed for Pain for up to 7 days. Patient not taking: Reported on 12/29/2017 Disc: Reason for discontinue is not on file. Encounter Status:Closed by GIL FRANKS MD on 12/29/17 PROGRESS Observed: 12/29/2017 Status: COMPLETED Source: [place] 2:[address] [facility] REPOSITORY O ID: [id number] Author: Gil Franks Service: (none) Author Type: Physician Type: Progress Notes Filed: 12/29/2017 3:41 PM Note Text: [facility] Date: December 29, 2017 - 2:37 PM Santiago Salguero is seen in consultation requested by Dr. Adair Alfonso for an opinion regarding chronic lower back pain. My final recommendations will be communicated back to the requesting physician by way of shared medical record or via US mail. Chief Complaint: Patient presents with: New Patient: Chronic back pain vinita thigh pain SUBJECTIVE: Santiago Salguero, is a 22 year old year old with a history of none, who presents with lower back pain. The pain started 17 years ago, following following a surgical procedure (back).and is worsening after her recent . . Her pain is located in the low back lumbar region and radiates down the posterior leg. The pain is described as aching, excruciating, radiating, severe, sharp, soreness, shooting, stabbing, throbbing and spasms. The pain intensity is rated 8. The pain is exacerbated by activity, standing, walking, sitting, arising from a sitting position, lifting, twisting, flexion, driving/riding in car, entering/exiting a car, lying, mornings, pain is constant and changes in weather and relieved by standing and a hot shower. Symptoms interfere with physical activity, work, sexual relations, walking, sleeping, sitting, bathing, driving, cooking, household cleaning, reaching for shelves and lifting. 90% pain in spine vs 10% pain in legs. Obtained by Lakeisha Valerio Ma by interview and using data storage specialist from patient completed questionnaire I have reviewed, confirmed and edited the preliminary information with the patient: yes. In addition the patient reports no additional concerns. Litigation: No. Prior pain treatment has included physical therapy with no relief, Dates: 2013 and medications - opioids with minimal relief. She had relief from the following interventions: None. ALLERGIES No Known Allergies Current Medications: Pain medications reviewed and reconciled in the medication list: Yes. Current Outpatient Prescriptions: buPROPion XL (WELLBUTRIN XL) 300 mg 24 hr tablet Take 300 mg by mouth once daily. HYDROcodone-acetaminophen (NORCO) 5-325 mg per tablet Take 1 tablet by mouth three times daily as needed for Pain for up to 7 days. baclofen (LIORESAL) 10 mg tablet Take 1 tablet by mouth twice daily. No current facility-administered medications for this visit. PAST MEDICAL HISTORY Diagnosis Date - Maternal anemia in , antepartum 11/14/2013 - Mild preeclampsia 01/23/2014 - Miscarriage - depression - Pyelonephritis 11/28/2013 - Scoliosis PAST SURGICAL HISTORY Procedure Laterality Date - APPENDECTOMY 07/22/2009 Dr. Rizzo - BACK SURGERY HX 12/2006 for scoloisis. FAMILY HISTORY Problem Relation Age of Onset - Asthma Mother - Heart Mother - Lipids Mother - Psychiatry Mother BIPOLAR WITH SUIIDAL IDEATION - Stroke Mother - Hypertension Father - Arthritis Father - Diabetes Paternal Grandmother - Diabetes Paternal Aunt Social History: Alcohol Use: No Tobacco Use: Never (Dad smokes) Drug Use: No Employer And Job Title: [employer] ([employer]) Years Of Education Completed: 12 years Marital Status: Single with 2 children REVIEW OF SYSTEMS: Constitutional: (-) Fever (-) Night Sweats (+) Weight Gain (-) Weight Loss (-) Fatigue Cardiovascular: (-) Chest Pain (-) Palpitations (-) Lightheadedness (+) Swelling of Ankles (-) Hx Heart Surgery Respiratory: (-) Shortness of Breath (-) Cough (-) Wheezing (-) Snoring Gastrointestinal: (-) Incontinence (-) Abdominal Pain (-) Diarrhea (-) Constipation (-) Nausea/Vomiting (-) Heart Burn Endocrine: (-) Thyroid Disorder (-) Diabetes Hematologic: (-) Prolonged Bleeding (-) Easy Bruising Genitourinary: (-) Incontinence (-) Frequency (-) Urinary Urgency Skin: (-) Rashes (-) Itching (-) Other Lesions Neurologic: (-) Headache (-) Double Vision (-) Confusion (-) Paralysis (-) Vertigo (-) Syncope Psychiatric: (+) Depression (+) Anxiety (-) Delusions (-) Hallucinations (-) Suicidal Thoughts Lakeisha Valerio Ma OARRS Report reviewed: Yes Narcotic Agreement reviewed and signed?: N/A Baseline Urine Toxicology obtained: N/A Urine Panel: No results found for: UQCANN, UQBNZL, DDC8KHG, UQAMPH, UQMAMP, UQBUPRE, UQNORBUP, UQMTHD, UQEDDP, UQTRAM, UQDTRM, UQFNTL, UQNFTL, UQCODE, UQMORP, UQDCDN, UQHCOD, UQOXYC, UQHMOR, UQOXYM, UQCREA, UQPH, UQSPGR, UQOXID, UQSPQ The pain panel was N/A I have reviewed, confirmed and edited the preliminary information with the patient: OBJECTIVE: PHYSICAL EXAMINATION: Pulse 90 Ht 5' 5 (1.65m) Wt 238 lb 12.8 oz (108.3kg) SpO2 99% BMI 39.74 kg/(m2). General: Well-appearing, alert, in no acute distress Skin: Skin color, texture, turgor normal, no rashes or lesions HEENT: Normocephalic, atraumatic, sclera nonicteric CV: Regular rate and rhythm -Pulses: +2 and equal bilaterally Resp: Breathing unlabored, normal chest excursion. GI: Abdomen soft, not distended nontender : not examined Lymphatic:No lymphadema Musculoskeletal Neck: Posture and spinal curves are normal, Supple, normal range of motion, non-tender Back: Posture and spinal curves are abnormal; flat back, scoliosis, limited range of motion without reproducible pain, moderate pain to palpation of the lumbar spine , tender with spasm to the left AND right side(s), straight leg raising test is negative bilaterally Positive bilateral PSIS tenderness. Positive sacral thrust. Positive Juan's bilaterally. Extremities: Normal without deformity, edema or skin discoloration Neurological: Mental Status: Alert and oriented x3, Appropriate to topic Cranial Nerves: 2 through 12 intact Motor Strength:Motor strength and tone are 5/5 throughout Sensory:Sensation was intact to light touch all throughout Gait: normal Medical record and diagnostic tests reviewed for today's visit: The [facility] EMR was reviewed during the visit IMAGING STUDIES: No new imaging studies were reviewed during this office visit. 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 Discussed conservative options and focus on improvement of function. Discussed the rationale behind interventional approach and how it can facilitate improvement of pain but also diagnostic information that procedures provide. superintendent container terminal use of any opioid pain medication is discouraged in chronic benign pain PLAN: 1. She has multiple issues and multi pain component was discussed. Based on her current presentation, injection options were discussed. 2. Patient will course of [place] was written. Do not recommend long-term opioid therapy. Signed Prescriptions Disp Refills HYDROcodone-acetaminophen (NORCO) 5-325 mg per tablet 21 tablet 0 Sig: Take 1 tablet by mouth three times daily as needed for Pain for up to 7 days. JANETT Class: C-II DULCE MARIA: No baclofen (LIORESAL) 10 mg tablet 60 tablet 0 Sig: Take 1 tablet by mouth twice daily. 3. Pain interventional procedure recommended: Bilateral sacroiliac joint injection. 4. Encouraged activity as tolerated and encouraged exercise program. A brochure for SI joint exercise was given. 5. Follow up:3 months for an office visit. The above plan and management options were discussed with patient. The patient is in agreement with the above and verbalized understanding. I have discussed and confirmed the above treatment plan with the patient. and I have reviewed the nurses notes and I am aware of the family/social history. Gil Franks MD December 29, 2017 cc: Adair Alfonso PA-C [address] [facility] [address] PROGRESS Observed: 12/22/2017 Status: COMPLETED Source: [place] 3:34 PM [facility] [place] REPOSITORY HNO ID: [id number] Author: Dario Poe Service: (none) Author Type: Physician Type: Progress Notes Filed: 12/22/2017 3:41 PM Note Text: CC: Santiago Salguero is a 22 year old female who presents to the office for back pain follow up HPI: HPI: Back pain, previously in office Chronic back pain, this current episode started more than 1 week ago. The problem occurs constantly. The problem has not changed?since onset.The pain is associated with no known injury (scoliosis surgury in 2006 ). The pain is present in the lumbar spine, sacro-iliac joint and gluteal region. The quality of the pain is described as stabbing, shooting and aching. The pain radiates to the left thigh and right thigh. The pain is at a severity of 9/10. The pain is severe. The symptoms are aggravated by bending, twisting and certain positions. The pain is the same all the time. Associated symptoms include headaches, abdominal pain, leg pain, tingling?and weakness. She has tried NSAIDs?for the symptoms. The treatment provided no?relief. Risk factors include obesity, lack of exercise, poor posture and . ? She was given rx for flexeril and prednisone ? Previously ? ?continues to have progressively worsening pain in low back, mostly left >right, feeling of weakness and feeling like her leg is going to give out, tingling/burning and sharp shooting pain down left leg. ?Hx of thoracic/lumbar anne-marie and pedicle placement for severe scoliosis 11 year ago. ?Hasn't had repeat xrays since then. ?Has had 3 pregnancies in 3 years, typically recovers in weeks after baby is born, not after this 3rd . ?No bowel or bladder changes. ? She had MRI ordered and performed, unable to interpret images well due to rods in spine for scoliosis as a young teenager ? She is continuing to have mid and low back pain, left sided sciatica symptoms, comes and goes, worse with prolonged standing or walking, feels leg weakness. No improvement with pain with prednisone, muscle relaxants and tramadol. ? Hasn't seen spine surgeon recently Currently She has an appt to follow up with Dr. Franks for pain mgmt CT lumbar showed L5/S1 facet narrowing b/l, degeneration of the disc Is struggling with pain with standing and ambulation and flexion. No other new symptoms PAST MEDICAL HISTORY Diagnosis Date - Maternal anemia in , antepartum 11/14/2013 - Mild preeclampsia 01/23/2014 - Miscarriage - depression - Pyelonephritis 11/28/2013 - Scoliosis PAST SURGICAL HISTORY Procedure Laterality Date - APPENDECTOMY 07/22/2009 Dr. Rizzo - BACK SURGERY HX 12/2006 for scoloisis. Current Outpatient Prescriptions: buPROPion XL (WELLBUTRIN XL) 300 mg 24 hr tablet Take 300 mg by mouth once daily. HYDROcodone-acetaminophen (NORCO) 5-325 mg per tablet Take 1 tablet by mouth twice daily as needed for Pain for up to 7 days. No current facility-administered medications for this visit. ALLERGIES No Known Allergies Social History Marital status: Single Spouse name: Years of education: 12 Number of children: 2 Occupational History Occupation Employer Comment [employer] Social History Main Topics Smoking status: Never Smoker Smokeless tobacco: Never Used Comment: Dad smokes Alcohol use: No Drug use: No Sexual activity: Yes Partners with: Male ROS: See HPI PE: BP 100/60 Pulse 76 Temp (Src) 97.4 (Left Tympanic) Resp 16 Wt 237 lb (107.5kg) Gen: AANDOX3, NAD, non-toxic appearing HEENT: PERRLA, EOMs intact b/l, nares without drainage, pharynx without erythema, exudate, lesions, or drainage. Uvula midline. Neck: No LAD, no thyromegaly, no meningismus. CV: RRR, no murmur Lungs: CTA b/l, no wheezing Skin: No rashes, lesions, or wounds on exposed skin. Antalgic gait ASSESSMENT/PLAN: 1. Facet arthritis, degenerative, L5-S1 level, lumbosacral spine - ICD9: 721.3, ICD10: M47.817 (primary diagnosis) - f/u with Dr. Franks, pain mgmt, rx refilled until able to be seen - HYDROCODONE 5 MG-ACETAMINOPHEN 325 MG TABLET 2. Chronic left-sided low back pain with left-sided sciatica - ICD9: 724.2, 724.3, 338.29, ICD10: M54.42, G89.29 - see above - HYDROCODONE 5 MG-ACETAMINOPHEN 325 MG TABLET 3. History of fusion of thoracic spine - ICD9: V45.4, ICD10: Z98.1 - see above - HYDROCODONE 5 MG-ACETAMINOPHEN 325 MG TABLET 4. History of lumbar fusion - ICD9: V45.4, ICD10: Z98.1 - see above - HYDROCODONE 5 MG-ACETAMINOPHEN 325 MG TABLET 5. Weakness of left leg - ICD9: 729.89, ICD10: R29.898 - see above - HYDROCODONE 5 MG-ACETAMINOPHEN 325 MG TABLET Dario Poe DO Return if no improvement. Follow up with Dario Poe DO. Discussed risks, benefits, alternatives, and potential side effects of medications. Patient/Guardian expressed understanding and agreed with the plan. See patient instructions. Dario Poe DO [address] [place] [address] CNOV Observed: 12/22/2017 Status: COMPLETED Source: [place] 3:[address] [facility] REPOSITORY Office Visit (FAMPWS) SANTIAGO SALGUERO ([id number]) 1995 F Date Time Provider Department 12/22/17 3:00 PM DARIO POE During your visit today, we recorded the following information about you: Temperature Pulse Respiration Blood pressure 97.4 degrees 76/minute 16/minute 100/60 Weight 107.5 kg Dario Poe DO 12/22/2017 3:41 PM Signed CC: Santiago Salguero is a 22 year old female who presents to the office for back pain follow up HPI: HPI: Back pain, previously in office Chronic back pain, this current episode started more than 1 week ago. The problem occurs constantly. The problem has not changed?since onset.The pain is associated with no known injury (scoliosis surgury in 2006 ). The pain is present in the lumbar spine, sacro-iliac joint and gluteal region. The quality of the pain is described as stabbing, shooting and aching. The pain radiates to the left thigh and right thigh. The pain is at a severity of 9/10. The pain is severe. The symptoms are aggravated by bending, twisting and certain positions. The pain is the same all the time. Associated symptoms include headaches, abdominal pain, leg pain, tingling?and weakness. She has tried NSAIDs?for the symptoms. The treatment provided no?relief. Risk factors include obesity, lack of exercise, poor posture and . ? She was given rx for flexeril and prednisone ? Previously ? ?continues to have progressively worsening pain in low back, mostly left >right, feeling of weakness and feeling like her leg is going to give out, tingling/burning and sharp shooting pain down left leg. ?Hx of thoracic/lumbar anne-marie and pedicle placement for severe scoliosis 11 year ago. ?Hasn't had repeat xrays since then. ?Has had 3 pregnancies in 3 years, typically recovers in weeks after baby is born, not after this 3rd . ?No bowel or bladder changes. ? She had MRI ordered and performed, unable to interpret images well due to rods in spine for scoliosis as a young teenager ? She is continuing to have mid and low back pain, left sided sciatica symptoms, comes and goes, worse with prolonged standing or walking, feels leg weakness. No improvement with pain with prednisone, muscle relaxants and tramadol. ? Hasn't seen spine surgeon recently Currently She has an appt to follow up with Dr. Franks for pain mgmt CT lumbar showed L5/S1 facet narrowing b/l, degeneration of the disc Is struggling with pain with standing and ambulation and flexion. No other new symptoms PAST MEDICAL HISTORY Diagnosis Date - Maternal anemia in , antepartum 11/14/2013 - Mild preeclampsia 01/23/2014 - Miscarriage - depression - Pyelonephritis 11/28/2013 - Scoliosis PAST SURGICAL HISTORY Procedure Laterality Date - APPENDECTOMY 07/22/2009 Dr. Rizzo - BACK SURGERY HX 12/2006 for scoloisis. Current Outpatient Prescriptions: buPROPion XL (WELLBUTRIN XL) 300 mg 24 hr tablet Take 300 mg by mouth once daily. HYDROcodone-acetaminophen (NORCO) 5-325 mg per tablet Take 1 tablet by mouth twice daily as needed for Pain for up to 7 days. No current facility-administered medications for this visit. ALLERGIES No Known Allergies Social History Marital status: Single Spouse name: Years of education: 12 Number of children: 2 Occupational History Occupation Employer Comment [employer] Social History Main Topics Smoking status: Never Smoker Smokeless tobacco: Never Used Comment: Dad smokes Alcohol use: No Drug use: No Sexual activity: Yes Partners with: Male ROS: See HPI PE: BP 100/60 Pulse 76 Temp (Src) 97.4 (Left Tympanic) Resp 16 Wt 237 lb (107.5kg) Gen: AANDOX3, NAD, non-toxic appearing HEENT: PERRLA, EOMs intact b/l, nares without drainage, pharynx without erythema, exudate, lesions, or drainage. Uvula midline. Neck: No LAD, no thyromegaly, no meningismus. CV: RRR, no murmur Lungs: CTA b/l, no wheezing Skin: No rashes, lesions, or wounds on exposed skin. Antalgic gait ASSESSMENT/PLAN: 1. Facet arthritis, degenerative, L5-S1 level, lumbosacral spine - ICD9: 721.3, ICD10: M47.817 (primary diagnosis) - f/u with Dr. Franks, pain mgmt, rx refilled until able to be seen - HYDROCODONE 5 MG-ACETAMINOPHEN 325 MG TABLET 2. Chronic left-sided low back pain with left-sided sciatica - ICD9: 724.2, 724.3, 338.29, ICD10: M54.42, G89.29 - see above - HYDROCODONE 5 MG-ACETAMINOPHEN 325 MG TABLET 3. History of fusion of thoracic spine - ICD9: V45.4, ICD10: Z98.1 - see above - HYDROCODONE 5 MG-ACETAMINOPHEN 325 MG TABLET 4. History of lumbar fusion - ICD9: V45.4, ICD10: Z98.1 - see above - HYDROCODONE 5 MG-ACETAMINOPHEN 325 MG TABLET 5. Weakness of left leg - ICD9: 729.89, ICD10: R29.898 - see above - HYDROCODONE 5 MG-ACETAMINOPHEN 325 MG TABLET Dario Poe DO Return if no improvement. Follow up with Dario Poe DO. Discussed risks, benefits, alternatives, and potential side effects of medications. Patient/Guardian expressed understanding and agreed with the plan. See patient instructions. Dario Poe DO [address] [place] [address] Referring Provider: SELF [[id number]] Allergies As of Date: 12/22/2017 (No Known Allergies) Date Reviewed: 12/22/2017 Reviewed by: Dorothy Choi LPN - Fully Assessed Reason for Visit: Follow Up [171] Cmt: CT scan Primary Visit Diagnosis:Facet arthritis, degenerative, L5- S1 level, lumbosacral spine [M47.817] Other Visit Diagnoses:Chronic left-sided low back pain with left-sided sciatica [M54.42, G89.29] History of fusion of thoracic spine [Z98.1] History of lumbar fusion [Z98.1] Weakness of left leg [R29.898] Order(s):HYDROcodone-acetaminophen (NORCO) 5-325 mg per tabletTake 1 tablet by mouth twice daily as needed for Pain for up to 7 days.Disp: 14 tabletRfl: 0 Prescriptions as of 12/22/2017 Sig: BUPROPION XL 300 MG 24 HR TAB Take 300 mg by mouth once praveen* HYDROCODONE 5 MG-ACETAMINOPHE* Take 1 tablet by mouth twice * Problem List As Of Date 12/22/2017 Noted Resolved Scoliosis (and kyphoscoliosis), idiopathic [M41*INVALID FOR*11/10/2016 More... Rubella non-immune status, antepartum [O99.89, *INVALID FOR*02/26/2015 More... Maternal anemia in , antepartum [O99.0*INVALID FOR*02/26/2015 More... Pyelonephritis [N12] INVALID FOR*02/26/2015 More... Kidney stones [N20.0] INVALID FOR*02/26/2015 Chronic low back pain [M54.5, G89.29] INVALID FOR*11/10/2016 Mild preeclampsia [O14.00] INVALID FOR*02/26/2015 More... Missed [O02.1] INVALID FOR*12/11/2015 Hx of preeclampsia, prior , currently *INVALID FOR* More... Encounter for supervision of normal *INVALID FOR*04/15/2016 Obesity in [O99.210] INVALID FOR* More... Short interval between pregnancies affecting pr*INVALID FOR* More... History of depression [Z86.59] INVALID FOR* More... Nausea and vomiting during [O21.9] INVALID FOR* More... History of back surgery [Z98.890] INVALID FOR* More... Patient requested diagnostic testing [Z01.89] INVALID FOR* More... History of kidney stones [Z87.442] INVALID FOR* More... Back pain affecting [O26.899, M54.9] INVALID FOR* Prescriptions ordered this encounter Disp Refills Start End HYDROCODONE 5 MG-ACETAMINOPHEN 325 M* 14 t* 0 12/22/2017 12/29/2017 Class: Print RX Route: ORAL Sig: Take 1 tablet by mouth twice daily as needed for Pain for up to 7 days. Medications Discontinued During This Encounter HYDROcodone-acetaminophen (NORCO) 5-* 14 t* 0 11/22/2017 12/22/2017 Class: Print RX Route: ORAL Sig: Take 1 tablet by mouth twice daily as needed for Pain for up to 7 days. Disc: Reason for discontinue is not on file. Encounter Status:Closed by DARIO POE DO on 12/22/17 PROGRESS Observed: 12/08/2017 Status: COMPLETED Source: [place] 3:56 PM [facility] REPOSITORY O ID: [id number] Author: Ariella Larsen Ct Service: (none) Author Type: (none) Type: Progress Notes Filed: 12/08/2017 3:57 PM Note Text: Radiology Service Progress Note PATIENT NAME: Santiago Salguero DATE OF SERVICE: December 08, 2017 TIME: 3:57 PM PATIENT IDENTITY VERIFICATION COMPLETED USING TWO (2) METHODS: Patient confirmed name verbally and Date of . PATIENT GENDER DATA: Female. status: : No status: NO. PATIENT RELEVANT IMPLANT DATA REVIEWED: Not Applicable RADIOLOGY DEPARTMENT: CT; Exam(s) Completed: t-spine w/o, l-spine w/o PERIPHERAL IV DATA: Not applicable SIGNED BY: Ariella Enriquezueger Ct December 08, 2017 3:[address] LUMBAR SPINE WO Observed: 12/08/2017 Status: F Source: [place] 3:[address] [facility] REPOSITORY * * *Final Report* * * DATE OF EXAM: Dec 08 2017 3:03PM [facility] 0508 - CT LUMBAR SPINE WO IVCON / PROCEDURE REASON: multiple diagnoses * * * * Physician Interpretation * * * * EXAMINATION: CT THORACIC SPINE WO IVCON, CT LUMBAR SPINE WO IVCON HISTORY: Lt scaitca, Lt leg pain, Hx yovani anne-marie surg,tubal ligation,LMP: 2 days ago. COMPARISON: Thoracic and lumbar spine MRI of 11/17/2017. Thoracic and lumbar spine radiographs of 11/01/2017. TECHNIQUE: High resolution images were obtained from the cervicothoracic junction through the lumbosacral junction, with sagittal and coronal planar reconstructions. Dose-Length Product (DLP): 1619 mGy*cm. CT Dose Reduction Employed: Automated exposure control (AEC) RESULT: Post surgical changes: There are postsurgical changes of posterior instrumented and bone graft fusion bilaterally T2-L2. The metallic hardware gives rise to artifact that partially obscures adjacent structures. There is no evidence of hardware failure. There is essentially complete fusion of osseous bone graft material bilaterally throughout the instrumented levels. The transpedicular screws partially efface lateral recesses at multiple thoracic and lumbar levels. THORACIC SPINE: Counting reference: For the purposes of this report, the lowest complete disc is taken as L5/S1. Alignment: Within normal limits. Bones and Disks: There are postsurgical changes of posterior regimented fusion as described above. The thoracic vertebral body heights are preserved. Thoracic paraspinal soft tissues: Within normal limits. There is no significant thoracic bony spinal canal or neuroforaminal stenosis. LUMBAR SPINE: Counting reference: For the purposes of this report, the lowest complete disc is taken as L5/S1. Alignment: There is mild levoconvex curvature centered at L3, similar to the comparison examinations. Bones and Disks: There is degenerative disc change at L5/S1, including loss of disc height and associated changes in the adjacent vertebral body endplates and bone marrow. There are postsurgical changes of posterior instrumented fusion as described above. The lumbar vertebral body heights are preserved. Lumbar paraspinal soft tissues: Within normal limits. Significant findings by level: T12/L1: Canal and foramina are patent. L1/L2: Canal and foramina are patent. L2/L3: Canal and foramina are patent. L3/L4: Canal and foramina are patent. L4/L5: Canal and foramina are patent. L5/S1: Mild neural foraminal stenosis bilaterally due to disc space narrowing and mild disc bulging, similar to the lumbar spine MRI of 11/17/2017. IMPRESSION: 1. Posterior instrumented fusion and osseous bone graft fusion of the posterior elements T2-L2, with no evidence of hardware failure. 2. No significant bony spinal canal stenosis in the thoracic or lumbar spine. 3. Mild neural foraminal stenosis bilaterally at L5/S1, similar to the lumbar spine MRI of 11/17/2017. Numerical Control Drill Press Operator: NEISHA Transcribe Date/Time: Dec 08 2017 4:27P Dictated by : FEI RAMIREZ MD This examination was interpreted and the report reviewed and electronically signed by: FEI RAMIREZ MD on Dec 08 2017 5:18PM EST [id number] CT THORACIC SPINE WO Observed: 12/08/2017 Status: F Source: [place] IV[place] 3:[address] [facility] REPOSITORY * * *Final Report* * * DATE OF EXAM: Dec 08 2017 3:03PM [facility] 0514 - CT THORACIC SPINE WO IVCON / PROCEDURE REASON: multiple diagnoses * * * * Physician Interpretation * * * * EXAMINATION: CT THORACIC SPINE WO IVCON, CT LUMBAR SPINE WO IVCON HISTORY: Lt scaitca, Lt leg pain, Hx yovani anne-marie surg,tubal ligation,LMP: 2 days ago. COMPARISON: Thoracic and lumbar spine MRI of 11/17/2017. Thoracic and lumbar spine radiographs of 11/01/2017. TECHNIQUE: High resolution images were obtained from the cervicothoracic junction through the lumbosacral junction, with sagittal and coronal planar reconstructions. Dose-Length Product (DLP): 1619 mGy*cm. CT Dose Reduction Employed: Automated exposure control (AEC) RESULT: Post surgical changes: There are postsurgical changes of posterior instrumented and bone graft fusion bilaterally T2-L2. The metallic hardware gives rise to artifact that partially obscures adjacent structures. There is no evidence of hardware failure. There is essentially complete fusion of osseous bone graft material bilaterally throughout the instrumented levels. The transpedicular screws partially efface lateral recesses at multiple thoracic and lumbar levels. THORACIC SPINE: Counting reference: For the purposes of this report, the lowest complete disc is taken as L5/S1. Alignment: Within normal limits. Bones and Disks: There are postsurgical changes of posterior regimented fusion as described above. The thoracic vertebral body heights are preserved. Thoracic paraspinal soft tissues: Within normal limits. There is no significant thoracic bony spinal canal or neuroforaminal stenosis. LUMBAR SPINE: Counting reference: For the purposes of this report, the lowest complete disc is taken as L5/S1. Alignment: There is mild levoconvex curvature centered at L3, similar to the comparison examinations. Bones and Disks: There is degenerative disc change at L5/S1, including loss of disc height and associated changes in the adjacent vertebral body endplates and bone marrow. There are postsurgical changes of posterior instrumented fusion as described above. The lumbar vertebral body heights are preserved. Lumbar paraspinal soft tissues: Within normal limits. Significant findings by level: T12/L1: Canal and foramina are patent. L1/L2: Canal and foramina are patent. L2/L3: Canal and foramina are patent. L3/L4: Canal and foramina are patent. L4/L5: Canal and foramina are patent. L5/S1: Mild neural foraminal stenosis bilaterally due to disc space narrowing and mild disc bulging, similar to the lumbar spine MRI of 11/17/2017. IMPRESSION: 1. Posterior instrumented fusion and osseous bone graft fusion of the posterior elements T2-L2, with no evidence of hardware failure. 2. No significant bony spinal canal stenosis in the thoracic or lumbar spine. 3. Mild neural foraminal stenosis bilaterally at L5/S1, similar to the lumbar spine MRI of 11/17/2017. Numerical Control Drill Press Operator: PSCB Transcribe Date/Time: Dec 08 2017 4:27P Dictated by : FEI RAMIREZ MD This examination was interpreted and the report reviewed and electronically signed by: FEI RAMIREZ MD on Dec 08 2017 5:18PM EST [id number] Observed: 12/07/2017 Status: COMPLETED Source: [place] 12:[address] [facility] REPOSITORY Patient Outreach (FAMPST) SANTIAGO SALGUERO ([id number]) 1995 F Date Time Provider Department 12/07/17 DARIO POE FAMPST During your visit today, we recorded the following information about you: Allergies As of Date: 12/07/2017 (No Known Allergies) Date Reviewed: 11/22/2017 Reviewed by: Dorothy Choi LPN - Fully Assessed Visit Diagnosis:Medication management [Z79.899] Order(s):BASIC METABOLIC PNL [SQBMP] Order #: [id number] FUTURE LIPID PANEL BASIC [SQLIPB] Order #: [id number] FUTURE Prescriptions as of 12/07/2017 Sig: X HYDROCODONE 5 MG-ACETAMINOPHE* Take 1 tablet by mouth twice * BUPROPION XL 300 MG 24 HR TAB Take 300 mg by mouth once praveen* Problem List As Of Date 12/07/2017 Noted Resolved Scoliosis (and kyphoscoliosis), idiopathic [M41*INVALID FOR*11/10/2016 More... Rubella non-immune status, antepartum [O99.89, *INVALID FOR*02/26/2015 More... Maternal anemia in , antepartum [O99.0*INVALID FOR*02/26/2015 More... Pyelonephritis [N12] INVALID FOR*02/26/2015 More... Kidney stones [N20.0] INVALID FOR*02/26/2015 Chronic low back pain [M54.5, G89.29] INVALID FOR*11/10/2016 Mild preeclampsia [O14.00] INVALID FOR*02/26/2015 More... Missed [O02.1] INVALID FOR*12/11/2015 Hx of preeclampsia, prior , currently *INVALID FOR* More... Encounter for supervision of normal *INVALID FOR*04/15/2016 Obesity in [O99.210] INVALID FOR* More... Short interval between pregnancies affecting pr*INVALID FOR* More... History of depression [Z86.59] INVALID FOR* More... Nausea and vomiting during [O21.9] INVALID FOR* More... History of back surgery [Z98.890] INVALID FOR* More... Patient requested diagnostic testing [Z01.89] INVALID FOR* More... History of kidney stones [Z87.442] INVALID FOR* More... Back pain affecting [O99.89, M54.9] INVALID FOR* Encounter Status:Closed by EPIC, PRODUSER on 05/20/18 PROGRESS Observed: 11/22/2017 Status: COMPLETED Source: [place] 4:[address] [facility] REPOSITORY O ID: [id number] Author: Dario Poe Service: (none) Author Type: Physician Type: Progress Notes Filed: 11/22/2017 4:47 PM Note Text: CC: Santiago Salguero is a 22 year old female who presents to the office for back pain follow up HPI: Back pain, previously in office Chronic back pain, this current episode started more than 1 week ago. The problem occurs constantly. The problem has not changed?since onset.The pain is associated with no known injury (scoliosis surgury in 2007 ). The pain is present in the lumbar spine, sacro-iliac joint and gluteal region. The quality of the pain is described as stabbing, shooting and aching. The pain radiates to the left thigh and right thigh. The pain is at a severity of 9/10. The pain is severe. The symptoms are aggravated by bending, twisting and certain positions. The pain is the same all the time. Associated symptoms include headaches, abdominal pain, leg pain, tingling?and weakness. She has tried NSAIDs?for the symptoms. The treatment provided no?relief. Risk factors include obesity, lack of exercise, poor posture and . ? She was given rx for flexeril and prednisone ? At last OFFICE VISIT 3 weeks ago, ? ?continues to have progressively worsening pain in low back, mostly left >right, feeling of weakness and feeling like her leg is going to give out, tingling/burning and sharp shooting pain down left leg. Hx of thoracic/lumbar anne-marie and pedicle placement for severe scoliosis 11 year ago. Hasn't had repeat xrays since then. Has had 3 pregnancies in 3 years, typically recovers in weeks after baby is born, not after this 3rd . No bowel or bladder changes. She had MRI ordered and performed, unable to interpret images well due to rods in spine for scoliosis as a young teenager She is continuing to have mid and low back pain, left sided sciatica symptoms, comes and goes, worse with prolonged standing or walking, feels leg weakness. No improvement with pain with prednisone, muscle relaxants and tramadol. Hasn't seen spine surgeon recently PAST MEDICAL HISTORY Diagnosis Date - Maternal anemia in , antepartum 11/14/2013 - Mild preeclampsia 01/23/2014 - Miscarriage - depression - Pyelonephritis 11/28/2013 - Scoliosis PAST SURGICAL HISTORY Procedure Laterality Date - APPENDECTOMY 07/22/2009 Dr. Rizzo - BACK SURGERY HX 12/2006 for scoloisis. Current Outpatient Prescriptions: buPROPion XL (WELLBUTRIN XL) 300 mg 24 hr tablet Take 300 mg by mouth once daily. diazePAM (VALIUM) 5 mg tablet Take 1-2 tablets by mouth once in interventional radiology for 1 dose. HYDROcodone-acetaminophen (NORCO) 5-325 mg per tablet Take 1 tablet by mouth twice daily as needed for Pain for up to 7 days. No current facility-administered medications for this visit. ALLERGIES No Known Allergies Social History Marital status: Single Spouse name: Years of education: 12 Number of children: 2 Occupational History Occupation Employer Comment [employer]* Social History Main Topics Smoking status: Never Smoker Smokeless status: Never Used Comment: Dad smokes Alcohol use: No Drug use: No Sexual activity: Yes Partners with: Male ROS: See HPI PE: BP 100/60 Pulse 80 Temp (Src) 97.7 (Left Tympanic) Resp 20 Wt 234 lb (106.1kg) LMP 11/01/2017 Gen: AANDOX3, NAD, non-toxic appearing HEENT: PERRLA, EOMs intact b/l, nares without drainage, pharynx without erythema, exudate, lesions, or drainage. Uvula midline. Neck: No LAD, no thyromegaly, no meningismus. CV: RRR, no murmur, normal s1s2 Lungs: CTA b/l, no wheezing Skin: No rashes, lesions, or wounds on exposed skin. Weakness of left >right EHL and DTR 1/4 on left patellar vs. 2/4 on right patellar, muscle strength 4-4.5/5 on left quadriceps and gastrocnemius on left vs. 5/5 on right, paraspinal muscle spasm and tension L>right thoracic and lumbar spine, scar healed without concerns on thoracic/lumbar midline Diminished sensation left lower leg laterally ASSESSMENT/PLAN: 1. Chronic left-sided low back pain with left-sided sciatica - ICD9: 724.2, 724.3, 338.29, ICD10: M54.42, G89.29 (primary diagnosis) - due to distortion, unable to interpret MRI spine, need for CT thoracic and lumbar and follow up with spine surgeon - CT THORACIC SPINE WO IVCON - CT LUMBAR SPINE WO IVCON - DIAZEPAM 5 MG TABLET - HYDROCODONE 5 MG-ACETAMINOPHEN 325 MG TABLET - CONSULT TO SPINE SURGERY 2. History of fusion of thoracic spine - ICD9: V45.4, ICD10: Z98.1 - see above - CT THORACIC SPINE WO IVCON - CT LUMBAR SPINE WO IVCON - DIAZEPAM 5 MG TABLET - HYDROCODONE 5 MG-ACETAMINOPHEN 325 MG TABLET - CONSULT TO SPINE SURGERY 3. History of lumbar fusion - ICD9: V45.4, ICD10: Z98.1 - see above - CT THORACIC SPINE WO IVCON - CT LUMBAR SPINE WO IVCON - DIAZEPAM 5 MG TABLET - HYDROCODONE 5 MG-ACETAMINOPHEN 325 MG TABLET - CONSULT TO SPINE SURGERY 4. Weakness of left leg - ICD9: 729.89, ICD10: R29.898 - see above - CT THORACIC SPINE WO IVCON - CT LUMBAR SPINE WO IVCON - DIAZEPAM 5 MG TABLET - HYDROCODONE 5 MG-ACETAMINOPHEN 325 MG TABLET - CONSULT TO SPINE SURGERY Dario Poe DO O[facility] website checked and validated. All prescriptions have been APPROPRIATELY filled. No suspicious activity was identified.- 11/22/2017 by Dario Poe DO Return if no improvement. Follow up with Dario Poe DO. Discussed risks, benefits, alternatives, and potential side effects of medications. Patient/Guardian expressed understanding and agreed with the plan. See patient instructions. Dario Poe DO [address] [place] [address] OV Observed: 11/22/2017 Status: COMPLETED Source: [place] 2:[address] [facility] REPOSITORY Office Visit (FAMPWS) SANTIAGO SALGUERO ([id number]) 1995 F Date Time Provider Department 11/22/17 2:20 PM DARIO POE FAMPWS During your visit today, we recorded the following information about you: Temperature Pulse Respiration Blood pressure 97.7 degrees 80/minute 20/minute 100/60 Weight Last Period 106.1 kg 11/01/17 Dario Poe DO 11/22/2017 4:47 PM Signed CC: Santiago Salguero is a 22 year old female who presents to the office for back pain follow up HPI: Back pain, previously in office Chronic back pain, this current episode started more than 1 week ago. The problem occurs constantly. The problem has not changed?since onset.The pain is associated with no known injury (scoliosis surgury in 2006 ). The pain is present in the lumbar spine, sacro-iliac joint and gluteal region. The quality of the pain is described as stabbing, shooting and aching. The pain radiates to the left thigh and right thigh. The pain is at a severity of 9/10. The pain is severe. The symptoms are aggravated by bending, twisting and certain positions. The pain is the same all the time. Associated symptoms include headaches, abdominal pain, leg pain, tingling?and weakness. She has tried NSAIDs?for the symptoms. The treatment provided no?relief. Risk factors include obesity, lack of exercise, poor posture and . ? She was given rx for flexeril and prednisone ? At last OFFICE VISIT 3 weeks ago, ? ?continues to have progressively worsening pain in low back, mostly left ANDgt;right, feeling of weakness and feeling like her leg is going to give out, tingling/burning and sharp shooting pain down left leg. Hx of thoracic/lumbar anne-marie and pedicle placement for severe scoliosis 11 year ago. Hasn't had repeat xrays since then. Has had 3 pregnancies in 3 years, typically recovers in weeks after baby is born, not after this 3rd . No bowel or bladder changes. She had MRI ordered and performed, unable to interpret images well due to rods in spine for scoliosis as a young teenager She is continuing to have mid and low back pain, left sided sciatica symptoms, comes and goes, worse with prolonged standing or walking, feels leg weakness. No improvement with pain with prednisone, muscle relaxants and tramadol. Hasn't seen spine surgeon recently PAST MEDICAL HISTORY Diagnosis Date - Maternal anemia in , antepartum 11/14/2013 - Mild preeclampsia 01/23/2014 - Miscarriage - depression - Pyelonephritis 11/28/2013 - Scoliosis PAST SURGICAL HISTORY Procedure Laterality Date - APPENDECTOMY 07/22/2009 Dr. Rizzo - BACK SURGERY HX 12/2006 for scoloisis. Current Outpatient Prescriptions: buPROPion XL (WELLBUTRIN XL) 300 mg 24 hr tablet Take 300 mg by mouth once daily. diazePAM (VALIUM) 5 mg tablet Take 1-2 tablets by mouth once in interventional radiology for 1 dose. HYDROcodone-acetaminophen (NORCO) 5-325 mg per tablet Take 1 tablet by mouth twice daily as needed for Pain for up to 7 days. No current facility-administered medications for this visit. ALLERGIES No Known Allergies Social History Marital status: Single Spouse name: Years of education: 12 Number of children: 2 Occupational History Occupation Employer Comment [employer]* Social History Main Topics Smoking status: Never Smoker Smokeless status: Never Used Comment: Dad smokes Alcohol use: No Drug use: No Sexual activity: Yes Partners with: Male ROS: See HPI PE: BP 100/60 Pulse 80 Temp (Src) 97.7 (Left Tympanic) Resp 20 Wt 234 lb (106.1kg) LMP 11/01/2017 Gen: AANDamp;OX3, NAD, non-toxic appearing HEENT: PERRLA, EOMs intact b/l, nares without drainage, pharynx without erythema, exudate, lesions, or drainage. Uvula midline. Neck: No LAD, no thyromegaly, no meningismus. CV: RRR, no murmur, normal s1s2 Lungs: CTA b/l, no wheezing Skin: No rashes, lesions, or wounds on exposed skin. Weakness of left ANDgt;right EHL and DTR 1/4 on left patellar vs. 2/4 on right patellar, muscle strength 4-4.5/5 on left quadriceps and gastrocnemius on left vs. 5/5 on right, paraspinal muscle spasm and tension LANDgt;right thoracic and lumbar spine, scar healed without concerns on thoracic/lumbar midline Diminished sensation left lower leg laterally ASSESSMENT/PLAN: 1. Chronic left-sided low back pain with left-sided sciatica - ICD9: 724.2, 724.3, 338.29, ICD10: M54.42, G89.29 (primary diagnosis) - due to distortion, unable to interpret MRI spine, need for CT thoracic and lumbar and follow up with spine surgeon - CT THORACIC SPINE WO IVCON - CT LUMBAR SPINE WO IVCON - DIAZEPAM 5 MG TABLET - HYDROCODONE 5 MG-ACETAMINOPHEN 325 MG TABLET - CONSULT TO SPINE SURGERY 2. History of fusion of thoracic spine - ICD9: V45.4, ICD10: Z98.1 - see above - CT THORACIC SPINE WO IVCON - CT LUMBAR SPINE WO IVCON - DIAZEPAM 5 MG TABLET - HYDROCODONE 5 MG-ACETAMINOPHEN 325 MG TABLET - CONSULT TO SPINE SURGERY 3. History of lumbar fusion - ICD9: V45.4, ICD10: Z98.1 - see above - CT THORACIC SPINE WO IVCON - CT LUMBAR SPINE WO IVCON - DIAZEPAM 5 MG TABLET - HYDROCODONE 5 MG-ACETAMINOPHEN 325 MG TABLET - CONSULT TO SPINE SURGERY 4. Weakness of left leg - ICD9: 729.89, ICD10: R29.898 - see above - CT THORACIC SPINE WO IVCON - CT LUMBAR SPINE WO IVCON - DIAZEPAM 5 MG TABLET - HYDROCODONE 5 MG-ACETAMINOPHEN 325 MG TABLET - CONSULT TO SPINE SURGERY Dario Poe DO [facility] website checked and validated. All prescriptions have been APPROPRIATELY filled. No suspicious activity was identified.- 11/22/2017 by Dario Poe DO Return if no improvement. Follow up with Dario Poe DO. Discussed risks, benefits, alternatives, and potential side effects of medications. Patient/Guardian expressed understanding and agreed with the plan. See patient instructions. Dario Poe DO [address] [place] [address] Referring Provider: SELF [[id number]] Allergies As of Date: 11/22/2017 (No Known Allergies) Date Reviewed: 11/22/2017 Reviewed by: Dorothy Choi LPN - Fully Assessed Reason for Visit: Follow Up [171] Cmt: back pain Primary Visit Diagnosis:Chronic left-sided low back pain with left-sided sciatica [M54.42, G89.29] Other Visit Diagnoses:History of fusion of thoracic spine [Z98.1] History of lumbar fusion [Z98.1] Weakness of left leg [R29.898] Order(s):CT THORACIC SPINE WO IVCON [[id number]] Order #: [id number] FUTURE CT LUMBAR SPINE WO IVCON [[id number]] Order #: [id number] FUTURE diazePAM (VALIUM) 5 mg tabletTake 1-2 tablets by mouth once in interventional radiology for 1 dose.Disp: 2 tabletRfl: 0 HYDROcodone-acetaminophen (NORCO) 5-325 mg per tabletTake 1 tablet by mouth twice daily as needed for Pain for up to 7 days.Disp: 14 tabletRfl: 0 CONSULT TO SPINE SURGERY [[id number]] Order #: [id number]: 1 Prescriptions as of 11/22/2017 Sig: BUPROPION XL 300 MG 24 HR TAB Take 300 mg by mouth once praveen* DIAZEPAM 5 MG TABLET Take 1-2 tablets by mouth onc* HYDROCODONE 5 MG-ACETAMINOPHE* Take 1 tablet by mouth twice * Problem List As Of Date 11/22/2017 Noted Resolved Scoliosis (and kyphoscoliosis), idiopathic [M41*INVALID FOR*11/10/2016 More... Rubella non-immune status, antepartum [O99.89, *INVALID FOR*02/26/2015 More... Maternal anemia in , antepartum [O99.0*INVALID FOR*02/26/2015 More... Pyelonephritis [N12] INVALID FOR*02/26/2015 More... Kidney stones [N20.0] INVALID FOR*02/26/2015 Chronic low back pain [M54.5, G89.29] INVALID FOR*11/10/2016 Mild preeclampsia [O14.00] INVALID FOR*02/26/2015 More... Missed [O02.1] INVALID FOR*12/11/2015 Hx of preeclampsia, prior , currently *INVALID FOR* More... Encounter for supervision of normal *INVALID FOR*04/15/2016 Obesity in [O99.210] INVALID FOR* More... Short interval between pregnancies affecting pr*INVALID FOR* More... History of depression [Z86.59] INVALID FOR* More... Nausea and vomiting during [O21.9] INVALID FOR* More... History of back surgery [Z98.890] INVALID FOR* More... Patient requested diagnostic testing [Z01.89] INVALID FOR* More... History of kidney stones [Z87.442] INVALID FOR* More... Back pain affecting [O26.899, M54.9] INVALID FOR* Prescriptions ordered this encounter Disp Refills Start End DIAZEPAM 5 MG TABLET 2 ta* 0 11/22/2017 11/22/2017 Class: Print RX Route: ORAL Sig: Take 1-2 tablets by mouth once in interventional radiology for 1 dose. HYDROCODONE 5 MG-ACETAMINOPHEN 325 M* 14 t* 0 11/22/2017 11/29/2017 Class: Print RX Route: ORAL Sig: Take 1 tablet by mouth twice daily as needed for Pain for up to 7 days. Medications Discontinued During This Encounter predniSONE (DELTASONE) 10 mg tablet 21 t* 0 09/17/2017 11/22/2017 Sig: Take 40 mg x 3 days, 20 mg x 3 days, 10 mg x 3 days. Take with food, once daily Disc: Reason for discontinue is not on file. citalopram (CELEXA) 40 mg tablet 30 t* 13 01/05/2017 11/22/2017 Route: ORAL Sig: Take 1 tablet by mouth once daily. Disc: Reason for discontinue is not on file. meclizine (ANTIVERT) 12.5 mg tab 60 t* 6 12/08/2016 11/22/2017 Route: ORAL Sig: Take 2 tablets by mouth three times daily. Disc: Reason for discontinue is not on file. VIT/IRON FUMARATE/FA (PRENA* 11/22/2017 Class: Historical Med Route: ORAL Sig: Take by mouth. Disc: Reason for discontinue is not on file. Encounter Status:Closed by DARIO POE DO on 11/22/17 CNCO Observed: 11/18/2017 Status: COMPLETED Source: [place] 12:00 AM [facility] [facility] [place] REPOSITORY Letter Text Department of Family Medicine [address] [address] 11/18/2017 Santiago Salguero [address] [facility] [id number] Dear Santiago, We missed you at your last appointment with Mandeep Olmstead 11/25/17 at 2:20 PM. Please call our office at between the hours of 8:00 a.m. and 5:00 p.m. to reschedule or to inform us if this information is in error. It is important to know if you cannot keep an appointment so that the time is available for another person. We request that you cancel 24 hours in advance. If cancellation is necessary after that, please call as soon as possible. We appreciate your confidence in choosing the [facility] Family Medicine Department for your medical care and we look forward to seeing you at your next appointment. [facility] #: [id number] Sincerely, Department of Family Medicine [facility] PROGRESS Observed: 11/17/2017 Status: COMPLETED Source: [place] 2:[address] [facility] REPOSITORY HNO ID: [id number] Author: Obi Dinero (Rt) Service: (none) Author Type: Airworthiness Safety Inspector Type: Progress Notes Filed: 11/17/2017 2:45 PM Note Text: Radiology Service Progress Note PATIENT NAME: Santiago Salguero DATE OF SERVICE: November 17, 2017 TIME: 2:45 PM PATIENT IDENTITY VERIFICATION COMPLETED USING TWO (2) METHODS: Patient confirmed name verbally and Date of . PATIENT GENDER DATA: Female. status: : No status: NO. PATIENT RELEVANT IMPLANT DATA REVIEWED: Yes RADIOLOGY DEPARTMENT: MR; Exam(s) Completed: Spine: Lumbar spine PERIPHERAL IV DATA: Not applicable SIGNED BY: RT Bar November 17, 2017 2:45 PM PROGRESS Observed: 11/17/2017 Status: COMPLETED Source: [place] 2:43 PM [facility] [place] REPOSITORY HNO ID: [id number] Author: Obi Dinero (Rt) Service: (none) Author Type: Airworthiness Safety Inspector Type: Progress Notes Filed: 11/17/2017 2:44 PM Note Text: RADIOLOGY SERVICE PROGRESS NOTE DATE OF SERVICE: November 17, 2017 TIME OF SERVICE: 1340 EVENT: EXAM/PROCEDURE NOT COMPLETED - Patient has contraindication: Other duff rods. ADDITIONAL DATA: Too much artifact from Duff rods, unable to image, no charge to pt SIGNATURE: RT Bar PATIENT NAME: Santiago Salguero DATE: November 17, 2017 TIME: 2:43 PM PAGER/CONTACT #: MRI LUMBAR SPINE WO Observed: 11/17/2017 Status: F Source: [place] IVCON 2:[address] [facility] REPOSITORY * * *Final Report* * * DATE OF EXAM: Nov 17 2017 2:38PM [facility] [id number] - MRI LUMBAR SPINE WO IVCON / PROCEDURE REASON: multiple diagnoses * * * * Physician Interpretation * * * * EXAMINATION: MRI LUMBAR SPINE WO IVCON HISTORY: Lumbago with sciatica, left side Other chronic pain Arthrodesis status Arthrodesis status TECHNIQUE: Routine lumbosacral spine MR protocol without gadolinium. MQ: [id number] COMPARISON: None. RESULT: Counting reference: Lumbosacral junction. For the purposes of this report, L4-5 is considered the level of the iliac crest. Postsurgical changes: There are thoracic Duff rods bilaterally, that extend inferiorly down to the level of L2. There is considerable metallic distortion artifact from these rods, and examination is uninterpretable superior to the level of L2-3. Within these limits, the following report applies: Alignment: Alignment is anatomic. The curvature in the sagittal plane is anatomic, there is a gentle levoconvex scoliosis with its apex in the lumbar component around L1-2. Altogether this causes a mild rotatory scoliosis within the limits of view. Bone marrow signal/fracture: No evidence of pathologic marrow infiltration. No evidence of prior fracture. Conus: The conus is within normal limits of signal intensity and morphology. Paraspinal soft tissues: Paraspinal soft tissues are within normal limits. Lower thoracic spine: Visualized lower thoracic canal and foramina are patent. T12-L1: Not visualized L1-L2: Not visualized L2-L3: Not visualized L3-L4: Canal and foramina are patent L4-L5: Canal and foramina are patent L5-S1: Canal and foramina are patent Sacrum and iliac wings: The visualized sacrum and iliac wings are within normal limits. IMPRESSION: 1. CONSIDERABLE METALLIC ARTIFACT FROM THORACOLUMBAR DUFF RODS, PRECLUDES EVALUATION SUPERIOR TO L2-3 LEVEL 2. NO SIGNIFICANT CENTRAL OR FORAMINAL NARROWING INFERIOR TO L2-3 3. INFERIOR VIEWS OF A LIKELY THORACOLUMBAR ROTATORY SCOLIOSIS Numerical Control Drill Press Operator: NEISHA Transcribe Date/Time: Nov 17 2017 2:47P Dictated by : LORE WATTERS MD This examination was interpreted and the report reviewed and electronically signed by: LORE WATTERS MD on Nov 17 2017 2:57PM EST [id number] MRI THORACIC SPINE WO Observed: 11/17/2017 Status: F Source: [facility] 2:[address] [facility] REPOSITORY * * *Final Report* * * DATE OF EXAM: Nov 17 2017 2:11PM [facility] [id number] - MRI THORACIC SPINE WO IVCON / PROCEDURE REASON: multiple diagnoses * * * * Physician Interpretation * * * * EXAMINATION: MRI THORACIC SPINE WO IVCON HISTORY: Lumbago with sciatica, left side Other chronic pain Arthrodesis status Arthrodesis status TECHNIQUE: Attempted routine thoracic spine MR protocol. MQ: [id number] COMPARISON: None. RESULT: This study is uninterpretable secondary to marketed signal distortion and artifact from bilateral Duff rods in the thoracic spine. The patient should not be charged for this exam IMPRESSION: Uninterpretable examination Patient should NOT be charged for this thoracic exam Numerical Control Drill Press Operator: NEISHA Transcribe Date/Time: Nov 17 2017 2:25P Dictated by : LORE WATTERS MD This examination was interpreted and the report reviewed and electronically signed by: LORE WATTERS MD on Nov 17 2017 2:26PM EST [id number] PROGRESS Observed: 11/10/2017 Status: COMPLETED Source: [place] 2:43 PM [facility] [place] REPOSITORY HNO ID: [id number] Author: Delphine Coughlin (Sari) Jay Service: (none) Author Type: Nurse Practitioner Type: Progress Notes Filed: 11/10/2017 2:46 PM Note Text: Subjective HPI Patient presents with: Sore Throat: x 1 week Denies any otc treatment for symptoms. Review of Systems Constitutional: Negative for chills, fever and malaise/fatigue. HENT: Positive for sore throat. Negative for congestion and ear pain. Eyes: Negative for discharge and redness. Respiratory: Negative for cough. Gastrointestinal: Negative for abdominal pain, diarrhea, nausea and vomiting. Neurological: Negative for headaches. PAST MEDICAL HISTORY Diagnosis Date - Maternal anemia in , antepartum 11/14/2013 - Mild preeclampsia 01/23/2014 - Miscarriage - depression - Pyelonephritis 11/28/2013 - Scoliosis PAST SURGICAL HISTORY Procedure Laterality Date - APPENDECTOMY 07/22/2009 Dr. Rizzo - BACK SURGERY HX 12/2006 for scoloisis. ALLERGIES Review of patient's allergies indicates no known allergies. MEDICATIONS buPROPion XL (WELLBUTRIN XL) 300 mg 24 hr tablet Take 300 mg by mouth once daily. amoxicillin (AMOXIL) 875 mg tablet Take 1 tablet by mouth twice daily for 10 days. predniSONE (DELTASONE) 10 mg tablet Take 40 mg x 3 days, 20 mg x 3 days, 10 mg x 3 days. Take with food, once daily citalopram (CELEXA) 40 mg tablet Take 1 tablet by mouth once daily. meclizine (ANTIVERT) 12.5 mg tab Take 2 tablets by mouth three times daily. VIT/IRON FUMARATE/FA ( VITAMIN ORAL) Take by mouth. FAMILY HISTORY Problem Relation Age of Onset - Asthma Mother - Heart Mother - Lipids Mother - Psychiatry Mother BIPOLAR WITH SUIIDAL IDEATION - Stroke Mother - Hypertension Father - Arthritis Father - Diabetes Paternal Grandmother - Diabetes Paternal Aunt Social History Substance Use Topics - Smoking status: Never Smoker - Smokeless tobacco: Never Used Comment: Dad smokes - Alcohol use No Objective Physical Exam Constitutional: She is well-developed, well-nourished, and in no distress. HENT: Head: Normocephalic. Right Ear: Tympanic membrane, external ear and ear canal normal. Left Ear: Tympanic membrane, external ear and ear canal normal. Nose: Nose normal. Right sinus exhibits no maxillary sinus tenderness and no frontal sinus tenderness. Left sinus exhibits no maxillary sinus tenderness and no frontal sinus tenderness. Mouth/Throat: Posterior oropharyngeal edema and posterior oropharyngeal erythema present. Eyes: Conjunctivae are normal. Neck: Normal range of motion. Cardiovascular: Normal rate, regular rhythm and normal heart sounds. Pulmonary/Chest: Effort normal and breath sounds normal. No respiratory distress. She has no wheezes. Abdominal: Soft. Lymphadenopathy: She has no cervical adenopathy. Skin: Skin is warm and dry. No rash noted. Nursing note and vitals reviewed. ASSESSMENT/PLAN: 1. Strep pharyngitis - ICD9: 034.0, ICD10: J02.0 - suspect strep - Rapid Strep positive in the office today - antibiotic as written - Discussed supportive care treatment with fluids, rest and analgesia. - The patient may also use warm salt water gargles, throat lozenges and/or OTC throat spray as needed. - Contagious dz precautions discussed- including considered contagious until on antibiotics for 24 hours - The patient should follow up in 3-5 days if symptoms persist or worsen - Call back if drooling, increased temperature, symptoms of dehydration and/or still sick in one week - RAPID STREP TEST B/O Prescription instructions reviewed with patient as applicable. Patient advised if symptoms do not improve or if symptoms worsen sooner, to contact their primary care physician. Potential red flag symptoms discussed with the patient. Reviewed appropriate action plan to take if red flag symptoms occur. Patient agreeable to treatment plan. Delphine Thompson APRN.CNP CNOV Observed: 11/10/2017 Status: COMPLETED Source: [place] 1:[address] [facility] REPOSITORY Office Visit ([facility]) SANTIAGO SALGUERO ([id number]) 1995 F Date Time Provider Department 11/10/17 1:45 PM [facility] During your visit today, we recorded the following information about you: Temperature Pulse Respiration Blood pressure 98 degrees 88/minute 16/minute 102/90 Weight 104.9 kg Delphine Thompson APRN.CNP 11/10/2017 2:33 PM Signed What is strep throat? Strep throat is an infection caused by a specific type of bacteria, Streptococcus. When your child has a strep throat, the tonsils are usually very inflamed, and the inflammation may affect the surrounding part of the throat as well. Symptoms Strep throat is caused by a bacterium called Streptococcus pyogenes. To some extent, the symptoms of strep throat depend on the child?s age. - Infants with strep infections may have only a low fever and a thickened or bloody nasal discharge. - Toddlers (ages one to three) also may have a thickened or bloody nasal discharge with a fever. Such children are usually quite cranky, have no appetite, and often have swollen glands in the neck. Sometimes toddlers will complain of tummy pain instead of a sore throat. - Children over three years of age with strep are often more ill; they may have an extremely painful throat, fever over 102 degrees Fahrenheit (38.9 degrees Celsius), swollen glands in the neck, and pus on the tonsils. It?s important to be able to distinguish a strep throat from a viral sore throat, because strep infections are treated with antibiotics. When to call the machine adjuster leader case trim If your child has a sore throat that persists (not one that goes away after her first drink in the morning), whether or not it is accompanied by fever, headache, stomachache, or extreme fatigue, you should call your machine adjuster leader case trim. That call should be made even more urgently if your child seems extremely ill, or if she has difficulty breathing or extreme trouble swallowing (causing her to drool). This may indicate a more serious infection. Treatment If the strep test shows that your child does have strep throat, your machine adjuster leader case trim will prescribe an antibiotic to be taken by mouth or by injection. If your child is given the oral medication, it?s very important that she take it for the full course, as prescribed, even if the symptoms get better or go away. If a child?s strep throat is not treated with antibiotics, or if she doesn?t complete the treatment, the infection may worsen or spread to other parts of her body, leading to conditions such as abscesses of the tonsils or kidney problems. Untreated strep infections also can lead to rheumatic fever, a disease that affects the heart. However, rheumatic fever is rare in the [place] and in children under five years old. Prevention Most types of throat infections are contagious, being passed primarily through the air on droplets of moisture or on the hands of infected children or adults. For that reason, it makes sense to keep your child away from people who have symptoms of this condition. However, most people are contagious before their first symptoms appear, so often there?s really no practical way to prevent your child from lino the disease. In the past when a child had several sore throats, her tonsils might have been removed in an attempt to prevent further infections. But this operation, called a tonsillectomy, is recommended today only for the most severely affected children. Even in difficult cases, where there is repeated strep throat, antibiotic treatment is usually the best solution. Delphine Thompson APRN.INTERNET MARKETING STRATEGIST 11/10/2017 2:46 PM Signed Subjective HPI Patient presents with: Sore Throat: x 1 week Denies any otc treatment for symptoms. Review of Systems Constitutional: Negative for chills, fever and malaise/fatigue. HENT: Positive for sore throat. Negative for congestion and ear pain. Eyes: Negative for discharge and redness. Respiratory: Negative for cough. Gastrointestinal: Negative for abdominal pain, diarrhea, nausea and vomiting. Neurological: Negative for headaches. PAST MEDICAL HISTORY Diagnosis Date - Maternal anemia in , antepartum 11/14/2013 - Mild preeclampsia 01/23/2014 - Miscarriage - depression - Pyelonephritis 11/28/2013 - Scoliosis PAST SURGICAL HISTORY Procedure Laterality Date - APPENDECTOMY 07/22/2009 Dr. Rizzo - BACK SURGERY HX 12/2006 for scoloisis. ALLERGIES Review of patient's allergies indicates no known allergies. MEDICATIONS buPROPion XL (WELLBUTRIN XL) 300 mg 24 hr tablet Take 300 mg by mouth once daily. amoxicillin (AMOXIL) 875 mg tablet Take 1 tablet by mouth twice daily for 10 days. predniSONE (DELTASONE) 10 mg tablet Take 40 mg x 3 days, 20 mg x 3 days, 10 mg x 3 days. Take with food, once daily citalopram (CELEXA) 40 mg tablet Take 1 tablet by mouth once daily. meclizine (ANTIVERT) 12.5 mg tab Take 2 tablets by mouth three times daily. VIT/IRON FUMARATE/FA ( VITAMIN ORAL) Take by mouth. FAMILY HISTORY Problem Relation Age of Onset - Asthma Mother - Heart Mother - Lipids Mother - Psychiatry Mother BIPOLAR WITH SUIIDAL IDEATION - Stroke Mother - Hypertension Father - Arthritis Father - Diabetes Paternal Grandmother - Diabetes Paternal Aunt Social History Substance Use Topics - Smoking status: Never Smoker - Smokeless tobacco: Never Used Comment: Dad smokes - Alcohol use No Objective Physical Exam Constitutional: She is well-developed, well-nourished, and in no distress. HENT: Head: Normocephalic. Right Ear: Tympanic membrane, external ear and ear canal normal. Left Ear: Tympanic membrane, external ear and ear canal normal. Nose: Nose normal. Right sinus exhibits no maxillary sinus tenderness and no frontal sinus tenderness. Left sinus exhibits no maxillary sinus tenderness and no frontal sinus tenderness. Mouth/Throat: Posterior oropharyngeal edema and posterior oropharyngeal erythema present. Eyes: Conjunctivae are normal. Neck: Normal range of motion. Cardiovascular: Normal rate, regular rhythm and normal heart sounds. Pulmonary/Chest: Effort normal and breath sounds normal. No respiratory distress. She has no wheezes. Abdominal: Soft. Lymphadenopathy: She has no cervical adenopathy. Skin: Skin is warm and dry. No rash noted. Nursing note and vitals reviewed. ASSESSMENT/PLAN: 1. Strep pharyngitis - ICD9: 034.0, ICD10: J02.0 - suspect strep - Rapid Strep positive in the office today - antibiotic as written - Discussed supportive care treatment with fluids, rest and analgesia. - The patient may also use warm salt water gargles, throat lozenges and/or OTC throat spray as needed. - Contagious dz precautions discussed- including considered contagious until on antibiotics for 24 hours - The patient should follow up in 3-5 days if symptoms persist or worsen - Call back if drooling, increased temperature, symptoms of dehydration and/or still sick in one week - RAPID STREP TEST B/O Prescription instructions reviewed with patient as applicable. Patient advised if symptoms do not improve or if symptoms worsen sooner, to contact their primary care physician. Potential red flag symptoms discussed with the patient. Reviewed appropriate action plan to take if red flag symptoms occur. Patient agreeable to treatment plan. Delphine Thompson APRN.INTERNET MARKETING STRATEGIST Referring Provider: SELF [200] Allergies As of Date: 11/10/2017 (No Known Allergies) Date Reviewed: 11/10/2017 Reviewed by: Pascale Sweeney LPN - Fully Assessed Reason for Visit: Sore Throat [200] Cmt: x 1 week Primary Visit Diagnosis:Strep pharyngitis [J02.0] Order(s):RAPID STREP TEST B/O [[id number]] Order #: [id number] amoxicillin (AMOXIL) 875 mg tabletTake 1 tablet by mouth twice daily for 10 days.Disp: 20 tabletRfl: 0 Prescriptions as of 11/10/2017 Sig: BUPROPION XL 300 MG 24 HR TAB Take 300 mg by mouth once praveen* AMOXICILLIN 875 MG TABLET Take 1 tablet by mouth twice * PREDNISONE 10 MG TABLET Take 40 mg x 3 days, 20 mg x * CITALOPRAM 40 MG TABLET Take 1 tablet by mouth once d* MECLIZINE 12.5 MG TABLET Take 2 tablets by mouth three* VITAMIN ORAL Take by mouth. Medication notes this encounter PREDNISONE 10 MG TABLET >> Pascale Besancon [facility] 11/10/2017 1:59 PM >> BESANCON, PASCALE [facility] WedNov 10, 2017 1:59 PM Not Taking CITALOPRAM 40 MG TABLET >> Pascale Besancon [facility] 11/10/2017 1:59 PM >> BESANCON, PASCALE [facility] WedNov 10, 2017 1:59 PM Not Taking MECLIZINE 12.5 MG TABLET >> Pascale Besancon [facility] 11/10/2017 1:59 PM >> BESANCON, PASCALE [facility] WedNov 10, 2017 1:59 PM Not Taking VITAMIN ORAL >> Pascale Besancon [facility] 11/10/2017 1:59 PM >> BESANCON, PASCALE [employer] WedNov 10, 2017 1:59 PM Not Taking Problem List As Of Date 11/10/2017 Noted Resolved Scoliosis (and kyphoscoliosis), idiopathic [M41*INVALID FOR*11/10/2016 More... Rubella non-immune status, antepartum [O99.89, *INVALID FOR*02/26/2015 More... Maternal anemia in , antepartum [O99.0*INVALID FOR*02/26/2015 More... Pyelonephritis [N12] INVALID FOR*02/26/2015 More... Kidney stones [N20.0] INVALID FOR*02/26/2015 Chronic low back pain [M54.5, G89.29] INVALID FOR*11/10/2016 Mild preeclampsia [O14.00] INVALID FOR*02/26/2015 More... Missed [O02.1] INVALID FOR*12/11/2015 Hx of preeclampsia, prior , currently *INVALID FOR* More... Encounter for supervision of normal *INVALID FOR*04/15/2016 Obesity in [O99.210] INVALID FOR* More... Short interval between pregnancies affecting pr*INVALID FOR* More... History of depression [Z86.59] INVALID FOR* More... Nausea and vomiting during [O21.9] INVALID FOR* More... History of back surgery [Z98.890] INVALID FOR* More... Patient requested diagnostic testing [Z01.89] INVALID FOR* More... History of kidney stones [Z87.442] INVALID FOR* More... Back pain affecting [O26.899, M54.9] INVALID FOR* Other instructions from your clinician: What is strep throat? Strep throat is an infection caused by a specific type of bacteria, Streptococcus. When your child has a strep throat, the tonsils are usually very inflamed, and the inflammation may affect the surrounding part of the throat as well. Symptoms Strep throat is caused by a bacterium called Streptococcus pyogenes. To some extent, the symptoms of strep throat depend on the child?s age. - Infants with strep infections may have only a low fever and a thickened or bloody nasal discharge. - Toddlers (ages one to three) also may have a thickened or bloody nasal discharge with a fever. Such children are usually quite cranky, have no appetite, and often have swollen glands in the neck. Sometimes toddlers will complain of tummy pain instead of a sore throat. - Children over three years of age with strep are often more ill; they may have an extremely painful throat, fever over 102 degrees Fahrenheit (38.9 degrees Celsius), swollen glands in the neck, and pus on the tonsils. It?s important to be able to distinguish a strep throat from a viral sore throat, because strep infections are treated with antibiotics. When to call the machine adjuster leader case trim If your child has a sore throat that persists (not one that goes away after her first drink in the morning), whether or not it is accompanied by fever, headache, stomachache, or extreme fatigue, you should call your machine adjuster leader case trim. That call should be made even more urgently if your child seems extremely ill, or if she has difficulty breathing or extreme trouble swallowing (causing her to drool). This may indicate a more serious infection. Treatment If the strep test shows that your child does have strep throat, your machine adjuster leader case trim will prescribe an antibiotic to be taken by mouth or by injection. If your child is given the oral medication, it?s very important that she take it for the full course, as prescribed, even if the symptoms get better or go away. If a child?s strep throat is not treated with antibiotics, or if she doesn?t complete the treatment, the infection may worsen or spread to other parts of her body, leading to conditions such as abscesses of the tonsils or kidney problems. Untreated strep infections also can lead to rheumatic fever, a disease that affects the heart. However, rheumatic fever is rare in the [place] and in children under five years old. Prevention Most types of throat infections are contagious, being passed primarily through the air on droplets of moisture or on the hands of infected children or adults. For that reason, it makes sense to keep your child away from people who have symptoms of this condition. However, most people are contagious before their first symptoms appear, so often there?s really no practical way to prevent your child from lino the disease. In the past when a child had several sore throats, her tonsils might have been removed in an attempt to prevent further infections. But this operation, called a tonsillectomy, is recommended today only for the most severely affected children. Even in difficult cases, where there is repeated strep throat, antibiotic treatment is usually the best solution. Prescriptions ordered this encounter Disp Refills Start End AMOXICILLIN 875 MG TABLET 20 t* 0 11/10/2017 11/20/2017 Route: ORAL Sig: Take 1 tablet by mouth twice daily for 10 days. Disposition: Return if symptoms worsen or fail to improve. Follow-up and Disposition History Recorded Encounter Status:Closed by DELPHINE THOMPSON on 11/10/17 XR THORACIC 3V Observed: 11/01/2017 Status: F Source: [place] ANKIT/SURY/SHANTH[facility] 12:11 PM [facility] REPOS[facility]ORY * * *Final Report* * * DATE OF EXAM: Nov 01 2017 12:11PM WOX [id number] - XR THORACIC 3V ANKIT/SURY/SHANTHI / PROCEDURE REASON: multiple diagnoses * * * * Physician Interpretation * * * * 2 studies discussed below: Thoracic spine / lumbar spine HISTORY: 22 years old Clinical information: Lumbago with sciatica, left side Other chronic pain Arthrodesis status Arthrodesis status mid back pain patient states for a couple weeks/hx of scoliosis (accession [id number]), mid back pain for a couple weeks pt states/hx of scoliosis (accession [id number]) TECHNIQUE: Images: XR LUMBAR 3V AP/LAT/L5-S1, XR THORACIC 3V AP/LAT/SWIMMERS Comparison: 04/03/2014. RESULT: Findings: Thoracic spine: There are bilateral pedicular screws and rods extending from T2-L2. Moderate disc space narrowing is seen throughout the thoracic spine similar to the previous study. No fractures or dislocations are seen. Lumbar spine: LEFT convex rotoscoliosis noted. Moderate degenerative changes in the facet joints throughout the lumbar spine. No fractures or dislocations are seen. IMPRESSION: No significant interval change. Numerical Control Drill Press Operator: PSCB Transcribe Date/Time: Nov 01 2017 4:49P Dictated by : TI AMANDA DO This examination was interpreted and the report reviewed and electronically signed by: TI AMANDA DO on Nov 01 2017 4:52PM EST [id number] XR LUMBAR 3V Observed: 11/01/2017 Status: F Source: [facility] AP/LAT/L5-S1 12:11 PM [facility] * * *Final Report* * * DATE OF EXAM: Nov 01 2017 12:11PM WOX [id number] - XR LUMBAR 3V AP/LAT/L5-S1 / PROCEDURE REASON: multiple diagnoses * * * * Physician Interpretation * * * * 2 studies discussed below: Thoracic spine / lumbar spine HISTORY: 22 years old Clinical information: Lumbago with sciatica, left side Other chronic pain Arthrodesis status Arthrodesis status mid back pain patient states for a couple weeks/hx of scoliosis (accession [id number]), mid back pain for a couple weeks pt states/hx of scoliosis (accession [id number]) TECHNIQUE: Images: XR LUMBAR 3V AP/LAT/L5-S1, XR THORACIC 3V AP/LAT/SWIMMERS Comparison: 04/03/2014. RESULT: Findings: Thoracic spine: There are bilateral pedicular screws and rods extending from T2-L2. Moderate disc space narrowing is seen throughout the thoracic spine similar to the previous study. No fractures or dislocations are seen. Lumbar spine: LEFT convex rotoscoliosis noted. Moderate degenerative changes in the facet joints throughout the lumbar spine. No fractures or dislocations are seen. IMPRESSION: No significant interval change. Numerical Control Drill Press Operator: PSCB Transcribe Date/Time: Nov 01 2017 4:49P Dictated by : TI AMANDA DO This examination was interpreted and the report reviewed and electronically signed by: TI AMANDA DO on Nov 01 2017 4:52PM EST [id number] PROGRESS Observed: 11/01/2017 Status: COMPLETED Source: [place] 12:[address] [facility] REPOSITORY HNO ID: [id number] Author: Obi Garvin (Tech) Service: (none) Author Type: Airworthiness Safety Inspector Type: Progress Notes Filed: 11/01/2017 12:07 PM Note Text: Radiology Service Progress Note PATIENT NAME: Santiago Salguero DATE OF SERVICE: November 01, 2017 TIME: 12:07 PM PATIENT IDENTITY VERIFICATION COMPLETED USING TWO (2) METHODS: Patient confirmed name verbally and Date of . PATIENT GENDER DATA: Female. status: : No status: NO. PATIENT RELEVANT IMPLANT DATA REVIEWED: Not Applicable RADIOLOGY DEPARTMENT: General X-ray: Exam(s) Completed: Spine X-Ray(s): Thoracic and Lumbar AP / LAT / L5-S1 PERIPHERAL IV DATA: Not applicable SIGNED BY: Obi Askew November 01, 2017 12:07 PM PROGRESS Observed: 11/01/2017 Status: COMPLETED Source: [place] 11:[address] [facility] REPOSITORY HNO ID: [id number] Author: Dario Poe Service: (none) Author Type: Physician Type: Progress Notes Filed: 11/01/2017 11:43 AM Note Text: CC: Santiago Salguero is a 22 year old female who presents to the office for follow up back pain HPI: Seen in office 6 weeks ago by Caity Rosenberg, at that time: Back Pain This is a chronic problem. The current episode started more than 1 week ago. The problem occurs constantly. The problem has not changed since onset.The pain is associated with no known injury (scoliosis surgury in 2006 ). The pain is present in the lumbar spine, sacro-iliac joint and gluteal region. The quality of the pain is described as stabbing, shooting and aching. The pain radiates to the left thigh and right thigh. The pain is at a severity of 9/10. The pain is severe. The symptoms are aggravated by bending, twisting and certain positions. The pain is the same all the time. Associated symptoms include headaches, abdominal pain, leg pain, tingling and weakness. She has tried NSAIDs for the symptoms. The treatment provided no relief. Risk factors include obesity, lack of exercise, poor posture and . She was given rx for flexeril and prednisone Currently ?continues to have progressively worsening pain in low back, mostly left >right, feeling of weakness and feeling like her leg is going to give out, tingling/burning and sharp shooting pain down left leg. Hx of thoracic/lumbar anne-marie and pedicle placement for severe scoliosis 11 year ago. Hasn't had repeat xrays since then. Has had 3 pregnancies in 3 years, typically recovers in weeks after baby is born, not after this 3rd . No bowel or bladder changes. PAST MEDICAL HISTORY Diagnosis Date - Maternal anemia in , antepartum 11/14/2013 - Mild preeclampsia 01/23/2014 - Miscarriage - depression - Pyelonephritis 11/28/2013 - Scoliosis PAST SURGICAL HISTORY Procedure Laterality Date - APPENDECTOMY 07/22/2009 Dr. Rizzo - BACK SURGERY HX 12/2006 for scoloisis. Current Outpatient Prescriptions: buPROPion XL (WELLBUTRIN XL) 300 mg 24 hr tablet Take 300 mg by mouth once daily. predniSONE (DELTASONE) 10 mg tablet Take 40 mg x 3 days, 20 mg x 3 days, 10 mg x 3 days. Take with food, once daily citalopram (CELEXA) 40 mg tablet Take 1 tablet by mouth once daily. meclizine (ANTIVERT) 12.5 mg tab Take 2 tablets by mouth three times daily. VIT/IRON FUMARATE/FA ( VITAMIN ORAL) Take by mouth. No current facility-administered medications for this visit. ALLERGIES No Known Allergies Social History Marital status: Single Spouse name: Years of education: 12 Number of children: 2 Occupational History Occupation Employer Comment [employer]* Social History Main Topics Smoking status: Never Smoker Smokeless status: Never Used Comment: Dad smokes Alcohol use: No Drug use: No Sexual activity: Yes Partners with: Male ROS: See HPI PE: BP 104/70 Pulse 64 Temp (Src) 98 (Right Tympanic) Resp 16 Wt 230 lb (104.3kg) LMP 10/18/2017 Gen: AANDOX3, NAD, non-toxic appearing HEENT: PERRLA, EOMs intact b/l, nares without drainage, pharynx without erythema, exudate, lesions, or drainage. Uvula midline. Neck: No LAD, no thyromegaly, no meningismus. CV: RRR, no murmur, normal s1s2 Lungs: CTA b/l, no wheezing Skin: No rashes, lesions, or wounds on exposed skin. Weakness of left >right EHL and DTR 1/4 on left patellar vs. 2/4 on right patellar, muscle strength 4-4.5/5 on left quadriceps and gastrocnemius on left vs. 5/5 on right, paraspinal muscle spasm and tension L>right thoracic and lumbar spine, scar healed without concerns on thoracic/lumbar midline Diminished sensation left lower leg laterally ASSESSMENT/PLAN: 1. Chronic left-sided low back pain with left-sided sciatica - ICD9: 724.2, 724.3, 338.29, ICD10: M54.42, G89.29 (primary diagnosis) - concerns due to hx of thoracic/lumbar fusion surgery, paresthesias and weakness, worsening of symptoms, xray and MRI as ordered. - BUPROPION XL 300 MG 24 HR TAB - XR LUMBAR GENERAL 3V AP/LAT/L5-S1 - XR THORACIC GENERAL 3V AP/LAT/SWIMMERS - MRI THORACIC SPINE WO IVCON - MRI LUMBAR SPINE WO IVCON - TRAMADOL 50 MG TABLET 2. History of fusion of thoracic spine - ICD9: V45.4, ICD10: Z98.1 - concerns due to hx of thoracic/lumbar fusion surgery, paresthesias and weakness, worsening of symptoms, xray and MRI as ordered. - BUPROPION XL 300 MG 24 HR TAB - XR LUMBAR GENERAL 3V AP/LAT/L5-S1 - XR THORACIC GENERAL 3V AP/LAT/SWIMMERS - MRI THORACIC SPINE WO IVCON - MRI LUMBAR SPINE WO IVCON - TRAMADOL 50 MG TABLET 3. History of lumbar fusion - ICD9: V45.4, ICD10: Z98.1 - concerns due to hx of thoracic/lumbar fusion surgery, paresthesias and weakness, worsening of symptoms, xray and MRI as ordered. - BUPROPION XL 300 MG 24 HR TAB - XR LUMBAR GENERAL 3V AP/LAT/L5-S1 - XR THORACIC GENERAL 3V AP/LAT/SWIMMERS - MRI THORACIC SPINE WO IVCON - MRI LUMBAR SPINE WO IVCON - TRAMADOL 50 MG TABLET 4. Weakness of left leg - ICD9: 729.89, ICD10: R29.898 - concerns due to hx of thoracic/lumbar fusion surgery, paresthesias and weakness, worsening of symptoms, xray and MRI as ordered. - BUPROPION XL 300 MG 24 HR TAB - XR LUMBAR GENERAL 3V AP/LAT/L5-S1 - XR THORACIC GENERAL 3V AP/LAT/SWIMMERS - MRI THORACIC SPINE WO IVCON - MRI LUMBAR SPINE WO IVCON - TRAMADOL 50 MG TABLET Dario Poe DO Return if no improvement. Follow up with Dario Poe DO. Discussed risks, benefits, alternatives, and potential side effects of medications. Patient/Guardian expressed understanding and agreed with the plan. See patient instructions. Dario Poe DO [address] [place] [address] CNOV Observed: 11/01/2017 Status: COMPLETED Source: [place] 11:[address] [facility] REPOSITORY Office Visit (FAMPWS) SANTIAGO SALGUERO ([id number]) 1995 F Date Time Provider Department 11/01/17 11:00 [facility] During your visit today, we recorded the following information about you: Temperature Pulse Respiration Blood pressure 98 degrees 64/minute 16/minute 104/70 Weight Last Period 104.3 kg 10/18/17 Dario Poe DO 11/01/2017 11:43 AM Signed CC: Santiago Salguero is a 22 year old female who presents to the office for follow up back pain HPI: Seen in office 6 weeks ago by Caity Rosenberg, at that time: Back Pain This is a chronic problem. The current episode started more than 1 week ago. The problem occurs constantly. The problem has not changed since onset.The pain is associated with no known injury (scoliosis surgury in 2006 ). The pain is present in the lumbar spine, sacro-iliac joint and gluteal region. The quality of the pain is described as stabbing, shooting and aching. The pain radiates to the left thigh and right thigh. The pain is at a severity of 9/10. The pain is severe. The symptoms are aggravated by bending, twisting and certain positions. The pain is the same all the time. Associated symptoms include headaches, abdominal pain, leg pain, tingling and weakness. She has tried NSAIDs for the symptoms. The treatment provided no relief. Risk factors include obesity, lack of exercise, poor posture and . She was given rx for flexeril and prednisone Currently ?continues to have progressively worsening pain in low back, mostly left ANDgt;right, feeling of weakness and feeling like her leg is going to give out, tingling/burning and sharp shooting pain down left leg. Hx of thoracic/lumbar anne-marie and pedicle placement for severe scoliosis 11 year ago. Hasn't had repeat xrays since then. Has had 3 pregnancies in 3 years, typically recovers in weeks after baby is born, not after this 3rd . No bowel or bladder changes. PAST MEDICAL HISTORY Diagnosis Date - Maternal anemia in , antepartum 11/14/2013 - Mild preeclampsia 01/23/2014 - Miscarriage - depression - Pyelonephritis 11/28/2013 - Scoliosis PAST SURGICAL HISTORY Procedure Laterality Date - APPENDECTOMY 07/22/2009 Dr. Rizzo - BACK SURGERY HX 12/2006 for scoloisis. Current Outpatient Prescriptions: buPROPion XL (WELLBUTRIN XL) 300 mg 24 hr tablet Take 300 mg by mouth once daily. predniSONE (DELTASONE) 10 mg tablet Take 40 mg x 3 days, 20 mg x 3 days, 10 mg x 3 days. Take with food, once daily citalopram (CELEXA) 40 mg tablet Take 1 tablet by mouth once daily. meclizine (ANTIVERT) 12.5 mg tab Take 2 tablets by mouth three times daily. VIT/IRON FUMARATE/FA ( VITAMIN ORAL) Take by mouth. No current facility-administered medications for this visit. ALLERGIES No Known Allergies Social History Marital status: Single Spouse name: Years of education: 12 Number of children: 2 Occupational History Occupation Employer Comment [employer]* Social History Main Topics Smoking status: Never Smoker Smokeless status: Never Used Comment: Dad smokes Alcohol use: No Drug use: No Sexual activity: Yes Partners with: Male ROS: See HPI PE: BP 104/70 Pulse 64 Temp (Src) 98 (Right Tympanic) Resp 16 Wt 230 lb (104.3kg) LMP 10/18/2017 Gen: AANDamp;OX3, NAD, non-toxic appearing HEENT: PERRLA, EOMs intact b/l, nares without drainage, pharynx without erythema, exudate, lesions, or drainage. Uvula midline. Neck: No LAD, no thyromegaly, no meningismus. CV: RRR, no murmur, normal s1s2 Lungs: CTA b/l, no wheezing Skin: No rashes, lesions, or wounds on exposed skin. Weakness of left ANDgt;right EHL and DTR 1/4 on left patellar vs. 2/4 on right patellar, muscle strength 4-4.5/5 on left quadriceps and gastrocnemius on left vs. 5/5 on right, paraspinal muscle spasm and tension LANDgt;right thoracic and lumbar spine, scar healed without concerns on thoracic/lumbar midline Diminished sensation left lower leg laterally ASSESSMENT/PLAN: 1. Chronic left-sided low back pain with left-sided sciatica - ICD9: 724.2, 724.3, 338.29, ICD10: M54.42, G89.29 (primary diagnosis) - concerns due to hx of thoracic/lumbar fusion surgery, paresthesias and weakness, worsening of symptoms, xray and MRI as ordered. - BUPROPION XL 300 MG 24 HR TAB - XR LUMBAR GENERAL 3V AP/LAT/L5-S1 - XR THORACIC GENERAL 3V AP/LAT/SWIMMERS - MRI THORACIC SPINE WO IVCON - MRI LUMBAR SPINE WO IVCON - TRAMADOL 50 MG TABLET 2. History of fusion of thoracic spine - ICD9: V45.4, ICD10: Z98.1 - concerns due to hx of thoracic/lumbar fusion surgery, paresthesias and weakness, worsening of symptoms, xray and MRI as ordered. - BUPROPION XL 300 MG 24 HR TAB - XR LUMBAR GENERAL 3V AP/LAT/L5-S1 - XR THORACIC GENERAL 3V AP/LAT/SWIMMERS - MRI THORACIC SPINE WO IVCON - MRI LUMBAR SPINE WO IVCON - TRAMADOL 50 MG TABLET 3. History of lumbar fusion - ICD9: V45.4, ICD10: Z98.1 - concerns due to hx of thoracic/lumbar fusion surgery, paresthesias and weakness, worsening of symptoms, xray and MRI as ordered. - BUPROPION XL 300 MG 24 HR TAB - XR LUMBAR GENERAL 3V AP/LAT/L5-S1 - XR THORACIC GENERAL 3V AP/LAT/SWIMMERS - MRI THORACIC SPINE WO IVCON - MRI LUMBAR SPINE WO IVCON - TRAMADOL 50 MG TABLET 4. Weakness of left leg - ICD9: 729.89, ICD10: R29.898 - concerns due to hx of thoracic/lumbar fusion surgery, paresthesias and weakness, worsening of symptoms, xray and MRI as ordered. - BUPROPION XL 300 MG 24 HR TAB - XR LUMBAR GENERAL 3V AP/LAT/L5-S1 - XR THORACIC GENERAL 3V AP/LAT/SWIMMERS - MRI THORACIC SPINE WO IVCON - MRI LUMBAR SPINE WO IVCON - TRAMADOL 50 MG TABLET Dario Poe DO Return if no improvement. Follow up with Dario Poe DO. Discussed risks, benefits, alternatives, and potential side effects of medications. Patient/Guardian expressed understanding and agreed with the plan. See patient instructions. Dario Poe DO [address] [place] [address] Referring Provider: SELF [[id number]] Allergies As of Date: 11/01/2017 (No Known Allergies) Date Reviewed: 09/17/2017 Reviewed by: Chaitanya Bertrand LPN - Fully Assessed Reason for Visit: Back Pain [12] Cmt: follow up Reason For Visit History Recorded Primary Visit Diagnosis:Chronic left-sided low back pain with left-sided sciatica [M54.42, G89.29] Other Visit Diagnoses:History of fusion of thoracic spine [Z98.1] History of lumbar fusion [Z98.1] Weakness of left leg [R29.898] Order(s):XR LUMBAR GENERAL 3V AP/LAT/L5-S1 [[id number]] Order #: [id number] FUTURE XR THORACIC GENERAL 3V AP/LAT/SWIMMERS [[id number]] Order #: [id number] FUTURE MRI THORACIC SPINE WO IVCON [[id number]] Order #: [id number] FUTURE MRI LUMBAR SPINE WO IVCON [[id number]] Order #: [id number] FUTURE traMADol (ULTRAM) 50 mg tabletTake 1 tablet by mouth every 8 hours as needed for Pain for up to 7 days.Disp: 21 tabletRfl: 0 Prescriptions as of 11/01/2017 Sig: BUPROPION XL 300 MG 24 HR TAB Take 300 mg by mouth once praveen* TRAMADOL 50 MG TABLET Take 1 tablet by mouth every * PREDNISONE 10 MG TABLET Take 40 mg x 3 days, 20 mg x * CITALOPRAM 40 MG TABLET Take 1 tablet by mouth once d* MECLIZINE 12.5 MG TABLET Take 2 tablets by mouth three* VITAMIN ORAL Take by mouth. Problem List As Of Date 11/01/2017 Noted Resolved Scoliosis (and kyphoscoliosis), idiopathic [M41*INVALID FOR*11/10/2016 More... Rubella non-immune status, antepartum [O99.89, *INVALID FOR*02/26/2015 More... Maternal anemia in , antepartum [O99.0*INVALID FOR*02/26/2015 More... Pyelonephritis [N12] INVALID FOR*02/26/2015 More... Kidney stones [N20.0] INVALID FOR*02/26/2015 Chronic low back pain [M54.5, G89.29] INVALID FOR*11/10/2016 Mild preeclampsia [O14.00] INVALID FOR*02/26/2015 More... Missed [O02.1] INVALID FOR*12/11/2015 Hx of preeclampsia, prior , currently *INVALID FOR* More... Encounter for supervision of normal *INVALID FOR*04/15/2016 Obesity in [O99.210] INVALID FOR* More... Short interval between pregnancies affecting pr*INVALID FOR* More... History of depression [Z86.59] INVALID FOR* More... Nausea and vomiting during [O21.9] INVALID FOR* More... History of back surgery [Z98.890] INVALID FOR* More... Patient requested diagnostic testing [Z01.89] INVALID FOR* More... History of kidney stones [Z87.442] INVALID FOR* More... Back pain affecting [O26.899, M54.9] INVALID FOR* Prescriptions ordered this encounter Disp Refills Start End TRAMADOL 50 MG TABLET 21 t* 0 11/01/2017 11/08/2017 Class: Print RX Route: ORAL Sig: Take 1 tablet by mouth every 8 hours as needed for Pain for up to 7 days. Encounter Status:Closed by DARIO POE DO on 11/01/17 PROGRESS Observed: 09/17/2017 Status: COMPLETED Source: [place] 2:[address] [facility] REPOSITORY HNO ID: [id number] Author: Caity Evangelista (Kiln Fireman) RAMAN Rosenberg Service: (none) Author Type: Nurse Practitioner Type: Progress Notes Filed: 09/17/2017 2:55 PM Note Text: This note was created using [employer]. Subjective Patient is a 22 year old female presenting with back pain. The history is provided by the patient. No sign language translator was used. Back Pain This is a chronic problem. The current episode started more than 1 week ago. The problem occurs constantly. The problem has not changed since onset.The pain is associated with no known injury (scoliosis surgury in 2007 ). The pain is present in the lumbar spine, sacro-iliac joint and gluteal region. The quality of the pain is described as stabbing, shooting and aching. The pain radiates to the left thigh and right thigh. The pain is at a severity of 9/10. The pain is severe. The symptoms are aggravated by bending, twisting and certain positions. The pain is the same all the time. Associated symptoms include headaches, abdominal pain, leg pain, tingling and weakness. She has tried NSAIDs for the symptoms. The treatment provided no relief. Risk factors include obesity, lack of exercise, poor posture and . Review of Systems Constitutional: Positive for fatigue. Gastrointestinal: Positive for abdominal pain. Musculoskeletal: Positive for back pain. Neurological: Positive for dizziness, tingling, facial asymmetry, weakness, light-headedness and headaches. Negative for tremors, seizures, syncope and speech difficulty. Objective BP 130/82 Pulse 76 Resp 16 Wt 100.7 kg (222 lb) BMI 36.94 kg/m2 Physical Exam Constitutional: She is oriented to person, place, and time. Vital signs are normal. She appears well-developed and well-nourished. She is active and cooperative. She does not appear ill. No distress. HENT: Head: Normocephalic and atraumatic. Nose: Right sinus exhibits no maxillary sinus tenderness and no frontal sinus tenderness. Left sinus exhibits no maxillary sinus tenderness and no frontal sinus tenderness. Mouth/Throat: Uvula is midline, oropharynx is clear and moist and mucous membranes are normal. No tonsillar exudate. Eyes: Conjunctivae, EOM and lids are normal. Pupils are equal, round, and reactive to light. Right eye exhibits no nystagmus. Left eye exhibits no nystagmus. Neck: Full passive range of motion without pain. Cardiovascular: Normal rate, regular rhythm, S1 normal, S2 normal and normal heart sounds. No murmur heard. Pulmonary/Chest: Effort normal and breath sounds normal. She has no wheezes. She has no rhonchi. She has no rales. Abdominal: Soft. Normal appearance and bowel sounds are normal. She exhibits no mass. There is no hepatosplenomegaly. There is tenderness in the periumbilical area and suprapubic area. There is no guarding and no CVA tenderness. Lymphadenopathy: Head (right side): No submental, no submandibular, no tonsillar, no preauricular and no posterior auricular adenopathy present. Head (left side): No submental, no submandibular, no tonsillar, no preauricular and no posterior auricular adenopathy present. She has no cervical adenopathy. Neurological: She is alert and oriented to person, place, and time. She has normal strength and normal reflexes. No cranial nerve deficit or sensory deficit. Coordination and gait normal. Skin: Skin is warm and dry. ASSESSMENT/PLAN: 1. Acute midline low back pain, with sciatica presence unspecified - ICD9: 724.2, ICD10: M54.5 Chronic low back pain - Warm moist heat for 20 min three times a day - Prednisone burst- see orders - Muscle relaxant- see orders - UA today - unable to obtain from patient - PREDNISONE 10 MG TABLET - CYCLOBENZAPRINE 10 MG TABLET - UA DIP B/O - see patient instructions - provided back exercises and stretches for home - f/u in 1 week if not improving Caity Rosenberg CNP ALLERGIES ALLERGIES DATE TYPE / CODE NAME / CODE REACTION SEVERITY SOURCE 07/06/2018 Drug No Known Unknown [facility] Allergy/416 Allergies/U01159 Hospital 893557(SNOM 0388(RXNORM) Repository ED CT) Drug NO KNOWN [facility] Class/92416 ALLERGIES [place] 1003(SNOMED Repository CT) ENCOUNTERS ENCOUNTERS ADMIT/DISCHARGE ACCOUNT NUMBER ADMITTING ENCOUNTER LOCATION SOURCE CLASS 07/11/2018 [id number] [facility] 07/11/2018 [id number] Ambulatory [facility] ding: Repository 07/06/2018/07/06/20 [id number] Ambulatory [facility]: [place] [facility] Repository 07/04/2018 [id number] [facility] [place] [facility] 07/04/2018/07/08/20 [id number] Ambulatory [address] ding: Repository 06/29/2018/06/29/20 [id number] [place], Ambulatory [place] ding:[id number] Repository : [id number]: 1 06/29/2018/06/29/20 [id number] Ambulatory [facility]MS[facility]: [place] 18 [facility]MS.[facility] Repository 06/29/2018 [id number] [facility] [place] 06/27/2018/06/28/20 [id number] [facility] [address] ding:[id number] Repository : [id number]: 1 06/27/2018 [id number] [place], Ambulatory BMSBuilding: [place] BMS.CF[facility] Repository 06/27/2018 [id number] [place], Ambulatory BMSBuilding: [place] BMS.[facility] Repository 06/27/2018 [id number] Ambulatory [facility]: [place] Repository 06/20/2018 [id number] [facility] [facility] 06/13/2018 [id number] Ambulatory [facility]: [place] [facility] Repository 06/06/2018 [id number] [facility] [place] [facility] 06/06/2018/06/08/20 [id number] Ambulatory [address] ding: Repository 05/23/2018 [id number] [facility] [place] [facility] 05/12/2018 [id number] Ambulatory [facility]: [place] Repository 05/10/2018/05/13/20 [id number] [place], Inpatient [place] [address] ding:[id number] Repository : [id number]: 1 05/10/2018 [id number] [place], Ambulatory BMSBuilding: [place] BMS.[facility] Repository 05/10/2018 [id number] [place], Ambulatory BMSBuilding: [place] BMS.[facility] Repository 05/10/2018 [id number] [place], Ambulatory BMSBuilding: [place] BMS.[facility] Repository 05/10/2018 [id number] [place], Ambulatory BMSBuilding: [place] BMS.[facility] Repository 05/10/2018 [id number] [place], Ambulatory BMSBuilding: [place] BMS.[facility] Repository 05/10/2018 [id number] [place], Ambulatory BMSBuilding: [place] [facility]MS[facility] Repository 05/10/2018 [id number] Agyepong, Ambulatory BMSBuilding: Vane Lawler BMS.[facility] Repository 05/10/2018 [id number] Ambulatory BMSBuilding: [place] BMS.[facility] Repository 05/02/2018 [id number] Ambulatory BMSBuilding: [place] BMS.[facility] Repository 05/02/2018/05/08/20 [id number] Ambulatory [address] ding: Repository 04/27/2018 [id number] Ambulatory [facility] Repository 04/25/2018 [id number] Ambulatory BMSBuilding: [place] BMS.[facility] Repository 04/22/2018/04/22/20 [id number] Emergency [place] [address] ding:ED Repository 04/21/2018 [id number] Ambulatory BMSBuilding: [place] BMS.[facility] Repository 04/15/2018/04/20/20 [id number] Romelia Morris Inpatient Vane [address] ding:TV4Mawl Repository : QT619Wri: 1 04/15/2018 [id number] Romelia Morris Ambulatory BMSBuilding: [place] BMS.CF.[facility] Repository 04/15/2018 [id number] Romelia Morris Ambulatory BMSBuilding: [place] BMS.CF.[facility] Repository 04/15/2018 [id number] Romelia Morris Ambulatory BMSBuilding: [place] BMS.CF.[facility] Repository 04/15/2018/04/15/20 [id number] Ambulatory BMSBuilding: Vane 18 BMS.[facility] Repository 04/13/2018/04/13/20 [id number] Ambulatory BMSBuilding: Vane 18 BMS.[facility] Repository 04/05/2018/04/05/20 [id number] Ambulatory [address] ding:SDC Repository 04/05/2018 [id number] Ambulatory BMSBuilding: [place] BMS.CF.[facility] Repository 04/04/2018 [id number] Ambulatory BMSBuilding: [place] BMS.CF.[facility] Repository 03/30/2018/03/31/20 [id number] Ambulatory [address] Repository 03/28/2018/04/08/20 [id number] Ambulatory [address] ding:WC Repository 03/28/2018 [id number] Ambulatory BMSBuilding: [place] BMS.CF.[facility] Repository 03/14/2018 [id number] Ambulatory BMSBuilding: [place] BMS.CF.[facility] Repository 03/07/2018/03/08/20 [id number] Ambulatory [address] Repository 02/20/2018/02/25/20 [id number] Tina, Moe Inpatient Vane Vane 18 Encounter [facility] ding:SI6Bsyp Repository : ZI767Lbe: 1 02/20/2018 [id number] Tina, Moe Ambulatory BMSBuilding: [place] BMS.[facility] Repository 02/20/2018 [id number] Tina, Moe Ambulatory BMSBuilding: [place] BMS.[facility] Repository 02/20/2018 [id number] Tina, Moe Ambulatory BMSBuilding: [place] BMS.CF.[facility] Repository 02/20/2018 [id number] Tina, Moe Ambulatory BMSBuilding: [place] BMS.[facility] Repository 02/20/2018 [id number] Tina, Moe Ambulatory BMSBuilding: [place] BMS.[facility] Repository 02/20/2018 [id number] Tina, Moe Ambulatory BMSBuilding: [place] BMS.[facility] Repository 02/20/2018 [id number] Tina, Moe Ambulatory BMSBuilding: [place] BMS.CF.[facility] Repository 02/19/2018/02/20/20 [id number] Emergency [address] ding:ED Repository 02/03/2018/02/04/20 [id number] GIL FRANKS Ambulatory [address] Repository 01/06/2018/01/08/20 [id number] Ambulatory [address] Repository 12/29/2017/12/30/19 [id number] Ambulatory [address] Repository 12/22/2017/12/25/19 [id number] Ambulatory [address] Repository 12/08/2017/12/11/19 [id number] Ambulatory [address] Repository 11/22/2017/11/24/19 [id number] Ambulatory [address] Repository 11/17/2017/11/23/19 [id number] Ambulatory [address] Repository 11/17/2017/11/18/19 [id number] Ambulatory [address] Repository 11/12/2017/11/13/19 [id number] Emergency [place] [address] ding:ED Repository 11/10/2017/11/12/19 [id number] Ambulatory [address] Repository 11/01/2017/11/02/19 [id number] Ambulatory [address] Repository 11/01/2017/11/03/19 [id number] Ambulatory [address] Repository 09/17/2017/09/17/19 [id number] Ambulatory [address] Repository 08/10/2017 [id number] Ambulatory BMSBuilding: [place] [facility] PAYERS PAYERS ENCOUNTER GUARANTOR PAYER SUBSCRIBER SOURCE 07/11/2018 SANTIAGO R Primary SANTIAGO R Vaneanu [id number] [place] Insurance:CARESOURCEP MILLERDOB: [facility] Number: [id number] [id number] Repository 64389Dyo: (330) Date:2018-03-14 O () [address]ATTN: [place] [address]DL: 07/11/2018 Secondary NOT GIVENUNK [place] Insurance:SELF PAY [facility] Number: Effective Repository Date:2018-07-11 07/11/2018 SANTIAGO R Primary SANTIAGO R [place] [id number] [place] Insurance:CARESOURCEP MILLERDOB: [facility] Number: [id number] [id number] Repository 34212Oju: (330) Date:2018-03-14 O () [address]ATTN: [place] [address]YX: 07/11/2018 Secondary NOT GIVENUNK [place] Insurance:SELF PAY [facility] Number: Effective Repository Date:2018-07-09 07/06/2018 SANTIAGO R Primary SANTIAGO R [place] [id number] [place] Insurance:CARESOURCEP MILLERDOB: [facility] Number: [id number] [id number] Repository 11451Wks: (330) Date:2018-07-05 O () [address]ATTN: [place] [address]KO: 07/06/2018 Secondary NOT GIVENUNK [place] Insurance:SELF PAY [facility] Number: Effective Repository Date:2018-07-05 07/04/2018 SANTIAGO R Primary SANTIAGO R [place] [id number] [place] Insurance:CARESOURCEP MILLERDOB: Community [facility] Number: [id number] [id number] Repository 78981Mds: (330) Date:2018-03-14 O () [address]ATTN: [place] [address]XX: 07/04/2018 Secondary NOT GIVENUNK [place] Insurance:SELF PAY [facility] Number: Effective Repository Date:2018-07-04 07/04/2018 SANTIAGO R Primary SANTIAGO R [place] [id number] [place] Insurance:CARESOURCEP MILLERDOB: Community [facility] Number: [id number] [id number] Repository 94904Mmb: (330) Date:2018-03-14 O () [address]ATTN: [place] [address]CQ: 07/04/2018 Secondary NOT GIVENUNK [place] Insurance:SELF PAY [facility] Number: Effective Repository Date:2018-06-09 06/29/2018 SANTIAGO R Primary SANTIAGO R [place] [id number] [place] Insurance:CARESOURCEP MILLERDOB: Community [facility] Number: [id number] [id number] Repository 52251Jvg: (330) Date:2018-06-29P [address] () [address]ATTN: [place] [address]YR: 06/29/2018 Secondary NOT GIVENUNK [place] Insurance:SELF PAY [facility] Number: Effective Repository Date:2018-06-29 06/29/2018 SANTIAGO R Primary SANTIAGO R [place] [id number] [place] Insurance:CARESOURCEP MILLERDOB: [facility] Number: [id number] [id number] Repository 56046Ien: (330) Date:2018-06-29P O (HP) [address]ATTN: [place] [address]WT: 06/29/2018 Secondary NOT GIVENUNK [place] Insurance:SELF PAY [facility] Number: Effective Repository Date:2018-06-29 06/29/2018 SANTIAGO R Primary SANTIAGO R [place] [id number] [place] Insurance:CARESOURCEP MILLERDOB: [facility] Number: [id number] [id number] Repository 56572Syw: (330) Date:2018-06-29P [address] () [address]ATTN: [place] [address]RL: 06/29/2018 Secondary NOT GIVENUNK [place] Insurance:SELF PAY [facility] Number: Effective Repository Date:2018-06-29 06/27/2018 SANTIAGO R Primary SANTIAGO R [place] [id number] [place] Insurance:CARESOURCEP MILLERDOB: [facility] Number: [id number] [id number] Repository 76283Nfp: (330) Date:2018-06-27 O () [address]ATTN: [place] [address]SJ: 06/27/2018 Secondary NOT GIVENUNK [place] Insurance:SELF PAY [facility] Number: Effective Repository Date:2018-06-27 06/27/2018 SANTIAGO R Primary SANTIAGO R [place] [id number] [place] Insurance:CARESOURCEP MILLERDOB: [facility] Number: [id number] [id number] Repository 27872Xws: (330) Date:2018-06-27P O (HP) [address]ATTN: [place] [address]ZS: 06/27/2018 Secondary NOT GIVENUNK [place] Insurance:SELF PAY [facility] Number: Effective Repository Date:2018-06-27 06/27/2018 SANTIAGO R Primary SANTIAGO R [place] [id number] [place] Insurance:CARESOURCEP MILLERDOB: Community [facility] Number: [id number] [id number] Repository 58570Bql: (330) Date:2018-06-27P [address] () [address]ATTN: [place] [address]CO: 06/27/2018 Secondary NOT GIVENUNK [place] Insurance:SELF PAY [facility] Number: Effective Repository Date:2018-06-27 06/27/2018 SANTIAGO R Primary SANTIAGO R [place] [id number] [place] Insurance:CARESOURCEP MILLERDOB: [facility] Number: [id number] [id number] Repository 99938Uid: (330) Date:2018-06-27 O () [address]ATTN: [place] [address]VQ: 06/27/2018 Secondary NOT GIVENUNK [place] Insurance:SELF PAY [facility] Number: Effective Repository Date:2018-06-27 06/20/2018 SANTIAGO R Primary SANTIAGO R [place] [id number] [place] Insurance:CARESOURCEP MILLERDOB: [facility] Number: [id number] [id number] Repository 66492Kqn: (330) Date:2018-03-14P [address] () [address]ATTN: [place] [address]BA: 06/20/2018 Secondary NOT GIVENUNK [place] Insurance:SELF PAY [facility] Number: Effective Repository Date:2018-06-20 06/13/2018 SANTIAGO R Primary SANTIAGO R [place] [id number] [place] Insurance:CARESOURCEP MILLERDOB: [facility] Number: [id number] [id number] Repository 75431Llh: (330) Date:2018-03-14 O () [address]ATTN: [place] [address]SV: 06/13/2018 Secondary NOT GIVENUNK [place] Insurance:SELF PAY [facility] Number: Effective Repository Date:2018-06-13 06/06/2018 SANTIAGO R Primary SANTIAGO R [place] [id number] [place] Insurance:CARESOURCEP MILLERDOB: [facility] Number: [id number] [id number] Repository 01260Stw: (580) Date:2018-03-14 O () [address]ATTN: [place] [address]HZ: 06/06/2018 Secondary NOT GIVENUNK [place] Insurance:SELF PAY [facility] Number: Effective Repository Date:2018-06-06 06/06/2018 SANTIAGO R Primary SANTIAGO R [place] [id number] [place] Insurance:CARESOURCEP MILLERDOB: [facility] Number: [id number] [id number] Repository 34783Rvu: (330) Date:2018-03-14 O () [address]ATTN: [place] [address]UX: 06/06/2018 Secondary NOT GIVENUNK [place] Insurance:SELF PAY [facility] Number: Effective Repository Date:2018-05-09 05/23/2018 SANTIAGO R Primary SANTIAGO R [place] [id number] [place] Insurance:CARESOURCEP MILLERDOB: [facility] Number: [id number] [id number] Repository 59392Qsd: (330) Date:2018-03-14 O () [address]ATTN: [place] [address]ZU: 05/23/2018 Secondary NOT GIVENUNK [place] Insurance:SELF PAY [facility] Number: Effective Repository Date:2018-05-23 05/12/2018 SANTIAGO R Primary SANTIAGO R [place] [id number] [place] Insurance:CARESOURCEP MILLERDOB: [facility] Number: [id number] [id number] Repository 26583Nxl: (330) Date:2018-05-10P [address] () [address]ATTN: [place] [address]AQ: 05/12/2018 Secondary NOT GIVENUNK [place] Insurance:SELF PAY [facility] Number: Effective Repository Date:2018-05-12 05/10/2018 SANTIAGO R Primary SANTIAGO R [place] [id number] [place] Insurance:CARESOURCEP MILLERDOB: [facility] Number: [id number] [id number] Repository 89466Cns: (330) Date:2018-05-10P O () [address]ATTN: [place] [address]WJ: 05/10/2018 Secondary NOT GIVENUNK [place] Insurance:SELF PAY [facility] Number: Effective Repository Date:2018-05-10 05/10/2018 SANTIAGO R Primary SANTIAGO R [place] [id number] [place] Insurance:CARESOURCEP MILLERDOB: [facility] Number: [id number] [id number] Repository 24362Svp: (330) Date:2018-05-10P O () [address]ATTN: [place] [address]JS: 05/10/2018 Secondary NOT GIVENUNK [place] Insurance:SELF PAY [facility] Number: Effective Repository Date:2018-05-10 05/10/2018 SANTIAGO R Primary SANTIAGO R [place] [id number] [place] Insurance:CARESOURCEP MILLERDOB: Community [facility] Number: [id number] [id number] Repository 44573Uue: (330) Date:2018-05-10P O () [address]ATTN: [place] [address]GB: 05/10/2018 Secondary NOT GIVENUNK [place] Insurance:SELF PAY [facility] Number: Effective Repository Date:2018-05-10 05/10/2018 SANTIAGO R Primary SANTIAGO R [place] [id number] [place] Insurance:CARESOURCEP MILLERDOB: [facility] Number: [id number] [id number] Repository 14421Pwr: (330) Date:2018-05-10P O () [address]ATTN: [place] [address]UY: 05/10/2018 Secondary NOT GIVENUNK [place] Insurance:SELF PAY [facility] Number: Effective Repository Date:2018-05-10 05/10/2018 SANTIAGO R Primary SANTIAGO R [place] [id number] [place] Insurance:CARESOURCEP MILLERDOB: [facility] Number: [id number] [id number] Repository 43925Ldt: (330) Date:2018-05-10P O () [address]ATTN: [place] [address]CH: 05/10/2018 Secondary NOT GIVENUNK [place] Insurance:SELF PAY [facility] Number: Effective Repository Date:2018-05-10 05/10/2018 SANTIAGO R Primary SANTIAGO R [place] [id number] [place] Insurance:CARESOURCEP MILLERDOB: [facility] Number: [id number] [id number] Repository 38823Dot: (330) Date:2018-05-10P O () [address]ATTN: [place] [address]NM: 05/10/2018 Secondary NOT GIVENUNK [place] Insurance:SELF PAY [facility] Number: Effective Repository Date:2018-05-10 05/10/2018 SANTIAGO R Primary SANTIAGO R [place] [id number] [place] Insurance:CARESOURCEP MILLERDOB: [facility] Number: [id number] [id number] Repository 84729Eze: (330) Date:2018-05-10P O (HP) [address]ATTN: [place] [address]GU: 05/10/2018 Secondary NOT GIVENUNK [place] Insurance:SELF PAY [facility] Number: Effective Repository Date:2018-05-10 05/10/2018 SANTIAGO R Primary SANTIAGO R [place] [id number] [place] Insurance:CARESOURCEP MILLERDOB: [facility] Number: [id number] [id number] Repository 73640Kxl: (330) Date:2018-05-10P O () [address]ATTN: [place] [address]RU: 05/10/2018 Secondary NOT GIVENUNK [place] Insurance:SELF PAY [facility] Number: Effective Repository Date:2018-05-10 05/10/2018 SANTIAGO R Primary NOT GIVENUNK [place] [id number] [place] Insurance:SELF PAY [address] Number: Effective Repository 19663Ioo: (330) Date:2018-05-10 (HP) 05/02/2018 SANTIAGO R Primary SANTIAGO R [place] [id number] [place] Insurance:CARESOURCEP MILLERDOB: [facility] Number: [id number] [id number] Repository 67682Zsm: (330) Date:2018-03-14P O (HP) [address]ATTN: [place] [address]HE: 05/02/2018 Secondary NOT GIVENUNK [place] Insurance:SELF PAY [facility] Number: Effective Repository Date:2018-05-02 05/02/2018 SANTIAGO R Primary SANTIAGO R [place] [id number] [place] Insurance:CARESOURCEP MILLERDOB: [facility] Number: [id number] [id number] Repository 85680Ply: (330) Date:2018-03-14 O () [address]ATTN: [place] [address]NE: 05/02/2018 Secondary NOT GIVENUNK [place] Insurance:SELF PAY [facility] Number: Effective Repository Date:2018-04-09 04/27/2018 santiago Primary [facility] millerDOB: Insurance:CareSourceP millerDOB: [facility] [id number] [facility] Number: [id number] Repository [address] Effective Date: [address] [place] [address] 14690Kuv: () 04/25/2018 SANTIAGO R Primary SANTIAGO R [place] [id number] [place] Insurance:CARESOURCEP MILLERDOB: [facility] Number: [id number] [id number] Repository 70044Hkf: (330) Date:2018-03-14 O () [address]ATTN: [place] [address]SG: 04/25/2018 Secondary NOT GIVENUNK [place] Insurance:SELF PAY [facility] Number: Effective Repository Date:2018-04-25 04/22/2018 SANTIAGO R Primary SANTIAGO R [place] [id number] [place] Insurance:CARESOURCEP MILLERDOB: [facility] Number: [id number] [id number] Repository 72160Gcw: (330) Date:2018-04-22 O () [address]ATTN: [place] [address]UG: 04/22/2018 Secondary NOT GIVENUNK [place] Insurance:SELF PAY [facility] Number: Effective Repository Date:2018-04-22 04/21/2018 SANTIAGO R Primary SANTIAGO R [place] [id number] [place] Insurance:CARESOURCEP MILLERDOB: [facility] Number: [id number] [id number] Repository 29761Lvr: (330) Date:2018-04-13 O () [address]ATTN: [place] [address]YW: 04/21/2018 Secondary NOT GIVENUNK [place] Insurance:SELF PAY [facility] Number: Effective Repository Date:2018-04-13 04/15/2018 SANTIAGO R Primary SANTIAGO R [place] [id number] [place] Insurance:CARESOURCEP MILLERDOB: [facility] Number: [id number] [id number] Repository 64161Yoz: (330) Date:2018-04-15 O () [address]ATTN: [place] [address]ZJ: 04/15/2018 Secondary NOT GIVENUNK [place] Insurance:SELF PAY [facility] Number: Effective Repository Date:2018-04-15 04/15/2018 SANTIAGO R Primary SANTIAGO R [place] [id number] [place] Insurance:CARESOURCEP MILLERDOB: [facility] Number: [id number] [id number] Repository 01312Hzk: (330) Date:2018-04-15 O () [address]ATTN: [place] [address]HC: 04/15/2018 Secondary NOT GIVENUNK [place] Insurance:SELF PAY [facility] Number: Effective Repository Date:2018-04-15 04/15/2018 SANTIAGO R Primary SANTIAGO R [place] [id number] [place] Insurance:CARESOURCEP MILLERDOB: [facility] Number: [id number] [id number] Repository 03120Kpq: (330) Date:2018-04-15 O () [address]ATTN: [place] [address]KP: 04/15/2018 Secondary NOT GIVENUNK [place] Insurance:SELF PAY [facility] Number: Effective Repository Date:2018-04-15 04/15/2018 SANTIAGO R Primary SANTIAGO R [place] [id number] [place] Insurance:CARESOURCEP MILLERDOB: [facility] Number: [id number] [id number] Repository 33183End: (330) Date:2018-04-15 O () [address]ATTN: [place] [address]LJ: 04/15/2018 Secondary NOT GIVENUNK [place] Insurance:SELF PAY [facility] Number: Effective Repository Date:2018-04-15 04/15/2018 SANTIAGO R Primary SANTIAGO R [place] [id number] [place] Insurance:CARESOURCEP MILLERDOB: [facility] Number: [id number] [id number] Repository 75022Lpl: (330) Date:2018-04-15 O () [address]ATTN: [place] [address]AI: 04/15/2018 Secondary NOT GIVENUNK [place] Insurance:SELF PAY [facility] Number: Effective Repository Date:2018-04-15 04/13/2018 SANTIAGO R Primary SANTIAGO R [place] [id number] [place] Insurance:CARESOURCEP MILLERDOB: [facility] Number: [id number] [id number] Repository 63897Cbf: (330) Date:2018-04-06 O () [address]ATTN: [place] [address]JN: 04/13/2018 Secondary NOT GIVENUNK [place] Insurance:SELF PAY [facility] Number: Effective Repository Date:2018-04-12 04/05/2018 SANTIAGO R Primary SANTIAGO R [place] [id number] [place] Insurance:CARESOURCEP MILLERDOB: Community [facility] yanetsoledad Number: [id number] [id number] Repository 49410Rou: (330) Date:2018-03-31 O () [address]ATTN: [place] [address]FS: 04/05/2018 Secondary NOT GIVENUNK [place] Insurance:SELF PAY [facility] Number: Effective Repository Date:2018-03-31 04/05/2018 SANTIAGO R Primary SANTIAGO R [place] [id number] [place] Insurance:CARESOURCEP MILLERDOB: [facility] Number: [id number] [id number] Repository 55960Dpt: (330) Date:2018-03-31 O () [address]ATTN: [place] [address]KR: 04/05/2018 Secondary NOT GIVENUNK [place] Insurance:SELF PAY [facility] Number: Effective Repository Date:2018-04-05 04/04/2018 SANTIAGO R Primary SANTIAGO R [place] [id number] [place] Insurance:CARESOURCEP MILLERDOB: [facility] Number: [id number] [id number] Repository 41992Uhq: (330) Date:2018-03-31 O () [address]ATTN: [place] [address]YQ: 04/04/2018 Secondary NOT GIVENUNK [place] Insurance:SELF PAY [facility] Number: Effective Repository Date:2018-04-04 03/28/2018 SANTIAGO R Primary SANTIAGO R [place] [id number] [place] Insurance:CARESOURCEP MILLERDOB: [facility] Number: [id number] [id number] Repository 259[address]Yxn: (330) Date:2018-03-14 O (HP) [address]ATTN: [place] [address]WF: 03/28/2018 Secondary NOT GIVENUNK [place] Insurance:SELF PAY [facility] Number: Effective Repository Date:2018-03-14 03/28/2018 SANTIAGO R Primary SANTIAGO R [place] [id number] [place] Insurance:CARESOURCEP MILLERDOB: [facility] Number: [id number] [id number] Repository 55247Hst: (330) Date:2018-03-14 O () [address]ATTN: [place] [address]VW: 03/28/2018 Secondary NOT GIVENUNK [place] Insurance:SELF PAY [facility] Number: Effective Repository Date:2018-03-28 03/14/2018 SANTIAGO R Primary SANTIAGO R [place] [id number] [place] Insurance:CARESOURCEP MILLERDOB: Community RDLOT olicy Number: [id number] [id number] Repository [id number]: ([phone]) Date:2018-03-14 O () [address]ATTN: [place] [id number]: 03/14/2018 Secondary NOT GIVENUNK [place] Insurance:SELF PAY [facility] Number: Effective Repository Date:2018-03-14 02/20/2018 SANTIAGO R Primary [place] [id number] [place] Insurance:CARESOURCEP MILLERDOB: Community RDLOT olicy Number: [id number] [id number] Repository [address]Rym: (330) Date:2018-02-20 O (HP) [address]ATTN: [place] [address]ZW: 02/20/2018 Secondary NOT GIVENUNK [place] Insurance:SELF PAY [facility] Number: Effective Repository Date:2018-02-20 02/20/2018 SANTIAGO R Primary [place]AG[place] R [place] [id number] [place] Insurance:CARESOURCEP MILLERDOB: [facility] RDLOT [facility] Number: [id number] [id number] Repository [address]Mwb: (330) Date:2018-02-20 O () [address]ATTN: [place] [address]HA: 02/20/2018 Secondary NOT GIVENUNK [place] Insurance:SELF PAY [facility] Number: Effective Repository Date:2018-02-20 02/20/2018 SANTIAGO R Primary SANTIAGO R [place] [id number] [place] Insurance:CARESOURCEP MILLERDOB: [facility] Number: [id number] [id number] Repository [address]Beh: (330) Date:2018-02-20 O () [address]ATTN: [place] [address]ZP: 02/20/2018 Secondary NOT GIVENUNK [place] Insurance:SELF PAY [facility] Number: Effective Repository Date:2018-02-20 02/20/2018 SANTIAGO R Primary [place] R [place] [id number] [place] Insurance:CARESOURCEP MILLERDOB: [facility] Number: [id number] [id number] Repository [address]Liv: (330) Date:2018-02-20 O () [address]ATTN: [place] [address]FM: 02/20/2018 Secondary NOT GIVENUNK [place] Insurance:SELF PAY [facility] Number: Effective Repository Date:2018-02-20 02/20/2018 SANTIAGO R Primary [place]IAGO R [place] [id number] [place] Insurance:CARESOURCEP MILLERDOB: [facility] Number: [id number] [id number] Repository [address]Jyb: (330) Date:2018-02-20 O (HP) [address]ATTN: [place] [address]XY: 02/20/2018 Secondary NOT GIVENUNK [place] Insurance:SELF PAY [facility] Number: Effective Repository Date:2018-02-20 02/20/2018 SANTIAGO R Primary [place]IAGO R [place] [id number] [place] Insurance:CARESOURCEP MILLERDOB: [facility] Number: [id number] [id number] Repository [address]Bel: (330) Date:2018-02-20 O () [address]ATTN: [place] [address]WN: 02/20/2018 Secondary NOT GIVENUNK [place] Insurance:SELF PAY [facility] Number: Effective Repository Date:2018-02-20 02/20/2018 SANTIAGO R Primary SANTIAGO R [place] [id number] [place] Insurance:CARESOURCEP MILLERDOB: [facility] Number: [id number] [id number] Repository [address]Krq: (330) Date:2018-02-20 O () [address]ATTN: [place] [address]WS: 02/20/2018 Secondary NOT GIVENUNK [place] Insurance:SELF PAY [facility] Number: Effective Repository Date:2018-02-20 02/20/2018 SANTIAGO R Primary [place]AGO R [place] [id number] [place] Insurance:CARESOURCEP MILLERDOB: [facility] Number: [id number] [id number] Repository [address]Vbt: (330) Date:2018-02-20 O (HP) [address]ATTN: [place] [address]UR: 02/20/2018 Secondary NOT GIVENUNK [place] Insurance:SELF PAY [facility] Number: Effective Repository Date:2018-02-20 02/19/2018 SANTIAGO R Primary SANTIAGO R [place] [id number] [place] Insurance:CARESOURCEP MILLERDOB: [facility] Number: [id number] [id number] Repository [address]Ioq: (330) Date:2018-02-19P [address] () [address]ATTN: [place] [address]XR: 02/19/2018 Secondary NOT GIVENUNK [place] Insurance:SELF PAY [facility] Number: Effective Repository Date:2018-02-19 11/12/2017 SANTIAGO R Primary SANTIAGO R [place] [id number] [place] Insurance:CARESOURCEP [facility]DOB[facility] Number: [id number] [id number] Repository [address]Xes: (330) Date:2017-11-12P O () [address]ATTN: [place] [address]IB: 11/12/2017 Secondary NOT GIVENUNK [place] Insurance:SELF PAY [facility] Number: Effective Repository Date:2017-11-12 08/10/2017 SANTIAGO R Primary SANTIAGO R [place] [id number] [place] Insurance:CARESOURCEP [facility]ILLERDOB[facility] Number: [id number] [id number] Repository [address]Lug: (330) Date:2017-07-11P O () [address]ATTN: [place] [address]ZN: 08/10/2017 Secondary NOT GIVENUNK [place] Insurance:SELF PAY [facility] Number: Effective Repository Date:2017-07-11
== END 2018-08-08 23:59 ==
LOC: WC 08:26
PROVIDERS: Family Provider Student in an Organized Health Care Education/Training Program; PCP Student in an Organized Health Care Education/Training Program; Referring Provider Surgery; Visit Provider Surgery
DX: L98.492 Non-pressure chronic ulcer of skin of other sites with fat layer exposed (principal); Z86.14 Personal history of Methicillin resistant Staphylococcus aureus infection; L02.213 Cutaneous abscess of chest wall; B96.5 Pseudomonas (aeruginosa) (mallei) (pseudomallei) as the cause of diseases classified elsewhere
CPT/HCPCS: 11042

== ENCOUNTER 2018-10-04 20:02 | Emergency (ER) | payer MEDICAID, SELFPAY ==
[2018-10-04 20:03] VITALS: BP 135/80; PULSE 83; RESP 17; TEMP 36.6; O2SAT 100; BMI 37.1
--- NOTE | 2018-10-04 21:33 | ED.DCSUM_ITS ---
- ER Visit Summary Date of Service: 10/04/18 Chief Complaint: Metallic foreign body tongue History of Present Illness: The patient is a 23 F who had her tongue pierced this past September 29. She states she removed the ball in the top part because the ball on the bottom part of her tongue is in bed in the tongue. She is complaining of pain. She is able to swallow. She is able to breathe. She is anxious. And she is reporting pain in her neck, jaw and face. She has no other symptoms or complaints Physical Examination: Patient appears anxious. Vital signs noted. Blood pressure is slightly elevated 135/80 the metal bar and ball on the dorsal side of the tongue is embedded. Patient is too apprehensive for me to attempt to push it out. There is no trismus. There is no evidence of Nabor's angina. Trachea is midline. There is no stridor. There is no cervical, submandibular or submental lymphadenopathy. Heart is regular. There is no murmur, gallop or rub. Lungs are clear to auscultation. Test Results: None were obtained Emergency Department Course and Treatment: Patient and her family members were informed that she referred to ENT to have this done under ideal situation. She may need to be sedated and potentially have this done in a operative suite. Treatment Plan: Refer to ENT for outpatient removal, Dr. Mario Mendoza Disposition: Discharge to home with outpatient referral to ENT Impression: Metallic embedded foreign body secondary to tongue piercing This note was generated with [employer] dictation software. It may contain incorrect words, spelling, and punctuation that were not noted in review of the chart prior to signing ED Disposition - Plan for ED Patient: Disposition: Home or Assisted Living Instructions: ED Foreign Body Soft Tissue Referrals: Dario Poe DO [Primary Care Provider] - Mario Mendoza MD [STAFF PHYSICIAN] - As soon as possible Additional Instructions: Return if you have any difficulty breathing, drooling or difficulty swallowing
== END 2018-10-04 21:41 | disposition home or self-care (01) ==
PROVIDERS: Emergency Provider Emergency Medicine; Family Provider Student in an Organized Health Care Education/Training Program; PCP Student in an Organized Health Care Education/Training Program
DX: T18.0XXA Foreign body in mouth, initial encounter (principal); M79.5 Residual foreign body in soft tissue; W26.8XXA Contact with other sharp object(s), not elsewhere classified, initial encounter; Y93.89 Activity, other specified; Y92.9 Unspecified place or not applicable; E66.9 Obesity, unspecified; Z68.37 Body mass index [BMI] 37.0-37.9, adult
CPT/HCPCS: 99282

== ENCOUNTER 2019-03-14 21:11 | Emergency (ER) | payer MEDICAID, SELFPAY ==
[2019-03-14 21:12] VITALS: BP 125/83; PULSE 88; RESP 15; TEMP 36.6; O2SAT 99; BMI 37.0
--- NOTE | 2019-03-14 21:25 | RAD_ITS ---
HISTORY: Status post injury with right foot pain XR Foot Min 3 Views TECHNIQUE: 3 views # of images incl. paperwork: 3 COMPARISON: None. FINDINGS: BONES/JOINTS: No acute fracture or dislocation. Joint spaces are well-preserved. SOFT TISSUES: Mild dorsal soft tissue swelling overlying the metatarsals. No radiopaque foreign body. RAD/Foot min 3 Views IMPRESSION: 1. No acute fracture. 2. Mild dorsal metatarsal soft tissue swelling. at 2147 Reported and signed by: Jackson Rolon MD Electronically Signed: Jackson Rolon MD at 21:46 EDT Tel , Service support ,
--- NOTE | 2019-03-14 22:00 | ED.DCSUM_ITS ---
- ER Visit Summary Date of Service: 03/14/19 Chief Complaint: Right foot pain History of Present Illness: The patient is a 23 F who presents with right foot pain that began initially 2 weeks ago when she dropped her phone on her foot. Patient states the pain became worse again tonight when she accidentally dropped a pack and play on her foot. Patient describes the pain as stabbing and throbbing. Patient states the pain is worse with ambulation. Patient admits to some tingling in her toes. Patient denies any weakness. She denies any other injuries. Patient states she has been taking Tylenol and ibuprofen with no relief. Physical Examination: Vital signs are stable. Patient is afebrile. Patient is in no acute distress. Musculoskeletal exam reveals tenderness with some mild edema over the dorsal aspect of the right foot. There is no bony crepitance or step-off. There is no ecchymosis noted. Range of motion was limited in all motions of the right foot and ankle secondary to pain. Pedal pulses are equal bilaterally. Capillary refill is less than 2 seconds in all digits. Sensation was intact to light touch in all digits. Test Results: X-rays of the right foot were obtained. There is no acute fracture. These were interpreted by the radiologist and myself. Emergency Department Course and Treatment: Patient was given ice pack. Patient was given a postop shoe. Patient was given 1 dose of [place] here. Patient was instructed to continue Tylenol and ibuprofen as needed for pain. Patient was instructed to follow-up with her primary care physician in 5 to 7 days. Patient understood and was agreeable with the plan. All questions were answered. Disposition: Discharge home Impression: Right foot contusion This note was generated with [employer] dictation software. It may contain incorrect words, spelling, and punctuation that were not noted in review of the chart prior to signing ED Disposition - Plan for ED Patient: Disposition: Home or Assisted Living Diagnosis: Contusion of right foot, initial encounter Instructions: CONTUSION, Foot Referrals: aDrio Poe DO [Primary Care Provider] - 5-7 Days
[2019-03-14] MEDS: HYDROcodone Bitartrate/Apap 5/325 Tablet PO (22:13)
== END 2019-03-14 22:13 | disposition home or self-care (01) ==
PROVIDERS: Emergency Provider Emergency Medicine; Family Provider Student in an Organized Health Care Education/Training Program; PCP Student in an Organized Health Care Education/Training Program
DX: S90.31XA Contusion of right foot, initial encounter (principal); W22.8XXA Striking against or struck by other objects, initial encounter; Y93.9 Activity, unspecified
CPT/HCPCS: 73630; 99283

== ENCOUNTER 2019-08-07 17:08 | Emergency (ER) | payer MEDICAID, SELFPAY ==
[2019-08-07 17:09] VITALS: BP 126/84; PULSE 87; RESP 20; TEMP 36.8; O2SAT 100; BMI 35.8
--- NOTE | 2019-08-07 19:50 | EKG12_ITS ---
Test Reason : DYSRYTHMIA Blood Pressure : / mmHG Vent. Rate : 065 BPM Atrial Rate : 065 BPM P-R Int : 116 ms QRS Dur : 094 ms QT Int : 396 ms P-R-T Axes : 022 051 027 degrees QTc Int : 411 ms Normal sinus rhythm Normal ECG Confirmed by RUFINO MADDEN, ALESSIA ([id number]), roll cutter LUCY JAIME ([id number]) on 08/10/2019 11:16:33 AM Referred By: JOSE Confirmed By:ALESSIA JOY MD
--- NOTE | 2019-08-07 19:51 | ED.DCSUM_ITS ---
History of Present Illness Chief Complaint: Nausea/Vomiting Informant: Patient Onset: Days Context: Gradual Onset Narrative: Patient is presenting with 4 days of flulike symptoms and a syncopal episode this morning. Patient states she has had body aches, back pain, nausea, vomiting. She denies any associated urinary symptoms. She states she is her multiple times a day. She states when she tried to stand up today she passed out woke up on the ground with her kids trying to wake her up. She do not know how long she was unconscious for. She denies any associated chest pain or shortness of breath. She notes she is had multiple family members with similar illnesses. She is reporting associated fever is not sure how high. She denies any other complaints at this time. Past Medical History - Allergies and Home Meds Allergies/Adverse Reactions: Allergies vancomycin Allergy (Verified 08/07/19 17:12) Other Primary Care Physician: Dario Poe DO [Primary Care Provider] - Past Medical History: - - MRSA, UTIs and pyelonephritis Hx Surgical History: appendectomy, - - Tubal ligation, back surgery for scoliosis Smoking Status: Never smoker - Family History Maternal Family History: Family History (Last Reviewed 06/29/18 @ 13:41 by Caity Sow PA-C) Mother Diabetes Hypertension Father Hypertension Grandmother Diabetes Family History: Reports: No pertinent history Paternal Family History: Family History (Last Reviewed 06/29/18 @ 13:41 by Caity Sow PA-C) Mother Diabetes Hypertension Father Hypertension Grandmother Diabetes Family History: Reports: No pertinent history Review of Systems General: Reports: Chills, Fever, Malaise. Denies: Sweats Eyes: Denies: Visual changes - bilaterally, Diplopia ENT: Reports: Rhinorrhea, - - Sinus congestion. Denies: Bilateral ear pain, Sore throat Cardiovascular: Denies: Chest pain, Palpitations Respiratory: Reports: Cough. Denies: Dyspnea, Dyspnea on exertion Gastrointestinal: Reports: Nausea, Vomiting. Denies: Abdominal pain, Diarrhea, Constipation, Melena, Hematochezia Genitourinary: Denies: Dysuria, Hematuria, Frequency Musculoskeletal: Reports: Myalgias. Denies: Back pain, Extremity Pain Skin: Denies: Rash, Wounds Neurological: Reports: Headache. Denies: Weakness, Numbness Physical Exam Vital Signs/Narrative: Vital Signs Temp Pulse Resp BP Pulse Ox 08/07/19 17:09 98.2 F 87 20 H 126/84 H 100 Inital Vital Signs reviewed: Yes General: Well nourished, Well developed, No Acute Distress Head: Normocephalic, Atraumatic Eyes: Perrl, EOMI ENT: Moist mucous membranes, No rhinorrhea, TM's clear, Nasal congestion, Sinus tenderness Neck: Supple, Nontender Cardiovascular: Regular rate, Regular rhythm, No murmurs Respiratory: No distress, CTA bilaterally, Chest nontender Abdomen: Soft, Nontender, Nondistended, Normal bowel sounds. Negative for: Guarding, Rebound tenderness Back: Nontender, Normal Inspection. Negative for: CVA tenderness Extremities: Nontender, No edema Skin: Normal color, No rash Neurological: Alert, Oriented x3, Cranial nerves II-XII grossly intact, Normal Strength, Normal Sensation Psychological: Normal affect, Normal Mood Diagnostic/Tx/Re-eval Chest X-Ray - ED: 2 View, Read by ED Physician, Read by Radiologist, No Acute Disease Clinical Impression(s) from Imaging Studies Chest X-Ray 08/07/19 20:10 IMPRESSION: No acute findings. Electronically Signed: Bethany Strauss MD at 20:36 EST Tel , Service support , Laboratory Data 08/07/19 08/07/19 08/07/19 19:53 19:53 20:40 WBC 3.9 L RBC 5.02 Hgb 14.1 Hct 42.7 MCV 85.1 MCH 28.1 MCHC 33.0 RDW Std Deviation 38.5 RDW Coeff of Kell 12.6 Plt Count 184 MPV 10.9 Immature Gran % (Auto) 0.500 Neut % (Auto) 56.9 Lymph % (Auto) 30.4 [place] % (Auto) 10.9 H Eos % (Auto) 1.0 Baso % (Auto) 0.3 Absolute Neuts (auto) 2.2 Absolute Lymphs (auto) 1.17 Nucleated RBC % 0 Sodium 140 Potassium 3.3 L Chloride 107 Carbon Dioxide 24.0 Anion Gap 9 BUN 12 Creatinine 0.70 Estim Creat Clear Calc 114.01 Est GFR (MDRD) Af Amer 130 Est GFR (MDRD) Non-Af 107 BUN/Creatinine Ratio 17.2 Glucose 80 Calcium 8.9 Total Bilirubin 0.30 AST 42 H ALT 39 Alkaline Phosphatase 72 Troponin I < 0.015 Total Protein 8.2 Albumin 4.1 Globulin 4.1 Albumin/Globulin Ratio 1.0 Lipase 134 Urine Color Urine Clarity Urine pH Ur Specific [place] Urine Protein Urine Glucose (UA) Urine Ketones Urine Occult Blood Urine Nitrite Urine Bilirubin Urine Urobilinogen Ur Leukocyte Esterase Urine RBC Urine WBC Ur Squamous Epith Cells Urine Bacteria Urine Mucus Urine Test Negative 08/07/19 20:40 WBC RBC Hgb Hct MCV MCH MCHC RDW Std Deviation RDW Coeff of Kell Plt Count MPV Immature Gran % (Auto) Neut % (Auto) Lymph % (Auto) [place] % (Auto) Eos % (Auto) Baso % (Auto) Absolute Neuts (auto) Absolute Lymphs (auto) Nucleated RBC % Sodium Potassium Chloride Carbon Dioxide Anion Gap BUN Creatinine Estim Creat Clear Calc Est GFR (MDRD) Af Amer Est GFR (MDRD) Non-Af BUN/Creatinine Ratio Glucose Calcium Total Bilirubin AST ALT Alkaline Phosphatase Troponin I Total Protein Albumin Globulin Albumin/Globulin Ratio Lipase Urine Color Yellow Urine Clarity Sl. Cloudy Urine pH 6.0 Ur Specific [place] 1.025 Urine Protein 30 H Urine Glucose (UA) Normal Urine Ketones 150 H Urine Occult Blood 10 H Urine Nitrite Negative Urine Bilirubin Negative Urine Urobilinogen Normal Ur Leukocyte Esterase Negative Urine RBC 0-5 SEEN Urine WBC 0 SEEN Ur Squamous Epith Cells 0-5 SEEN Urine Bacteria 0 SEEN Urine Mucus 0 SEEN Urine Test - Rhythm Strip Rhythm Strip: Sinus Rhythm Rate: 65 Ectopy: None - EKG Initial EKG Interpretation: Sinus Rhythm, - - Normal sinus rhythm at a rate of 65 Normal intervals Normal axis Normal ST segments Compared to prior EKG patient has no changes set for rate, patient was bradycardic on prior EKG - Medical Decision Making Patient is evaluated for flulike illness. She appears nontoxic in no acute distress. She does appear uncomfortable. Her vital signs are normal. She is given IV Toradol, Zofran and fluids initially in the emergency room. Flu swab is negative. As patient states she did have a syncopal episode I did obtain a chest x-ray as well as some baseline labs. These are all grossly normal.White blood cell count is mildly suppressed at 3.9. This is consistent with a viral infection. Potassium was mildly low at 3.3 and urinalysis does show signs of dehydration with an elevated ketones of 150. She has normal glucose and a normal anion gap. Patient did have a syncopal episode at home. I do not think it was cardiogenic in nature. She is not hypoxic. Likely was from dehydration as she did describe vasovagal symptoms beforehand. She does have elevated ketones in his urine which is also consistent with dehydration. While patient is in the ER she does complain of a worsening headache. She states she is been getting headaches intermittently associate with sinus pressure since she is been ill. She is given additionally Tylenol, second liter of fluid, Compazine and Benadryl. On reevaluation she is improved but states she still does not feel great. She will be discharged home with symptomatic treatment. She is counseled that this likely is a viral illness and requires symptomatic treatment at this time. She do not have findings consistent with an acute bacterial infection. She is well-appearing. Patient is counseled on signs and symptoms requiring return to the emergency room. Patient verbalizes agreement and understand this plan. Patient discharged home in stable and improved condition. ED Disposition - Plan for ED Patient: Disposition: Home or Assisted Living Diagnosis: Flu-like symptoms Instructions: VIRAL SYNDROME (Adult) Prescriptions: Ibuprofen [Motrin] 600 mg PO Q6H PRN PRN #20 tab PRN Reason: Pain Or Fever Prescription Printed Guaifenesin/Pseudoephedrne HCl [Mucinex D ER 1,200-120 mg Tab] 1 ea PO BID PRN #14 tab.er.12h PRN Reason: Congestion Prescription Printed Ondansetron [Zofran Odt] 4 mg PO Q8H PRN PRN #10 tab PRN Reason: Nausea Prescription Printed Referrals: Dario Poe DO [Primary Care Provider] - Additional Instructions: Drink plenty of fluids and rest as much as possible. You likely have a viral illness that will last for total of 7 days. Cough and congestion might last longer than this. Return to the emergency room if you develop high fevers or worsening symptoms.
[2019-08-07] MEDS: 0.9% Normal Saline 1,000 ML 1000 ML IV (19:55)
[2019-08-07] MEDS: Ketorolac 15 MG/ML Vial IV (19:57)
[2019-08-07] MEDS: Ondansetron 4 MG/2 ML Vial IV (19:57)
[2019-08-07 20:06] LABS: Absolute Lymphocyte Count 1.17 X10^3/uL (0.83-4.51); Absolute Neutrophil Count 2.2 X10^3/uL (2.0-7.7); Basophil# 0.01 X10^3/uL; Basophil% 0.3 % (0-1); Eosinophil# 0.04 X10^3/uL; Hematocrit 42.7 % (37-47); Hemoglobin 14.1 g/dL (12.0-15.0); Lymphocyte # 1.17 X10^3/ul (4.0); Lymphocyte % 30.4 % (19-41); Mean Corpuscular Hgb 28.1 pg (27.0-32.0); Mean Corpuscular Volume 85.1 fL (81-99); Mean Platelet Vol. 10.9 fl (6.2-12.0); Monocyte# 0.42 X10^3/uL; Monocyte% 10.9 % (0-10); NRBC Flagged by Analyzer 0 % (0-5); Neutrophil # 2.19 X10^3/uL (2.7-7.7); Neutrophil % 56.9 % (47-70); Platelet Count 184 K/mm3 (150-450); RBC Distribution Width CV 12.6 % (11.6-14.6); RBC Distribution Width SD 38.5 fl (35.1-43.9); Red Blood Count 5.02 M/mm3 (4.2-5.4); White Blood Count 3.9 K/mm3 (4.4-11.0)
--- NOTE | 2019-08-07 20:10 | RAD_ITS ---
STUDY: X-RAY CHEST REASON FOR EXAM: Female, 24 years old. N/V, DIZZINESS. EPISODE OF SYNCOPE THIS AM TECHNIQUE: PA and lateral chest. COMPARISON: 09/20/2016. FINDINGS: The lungs are clear and expanded. There is no demonstrated pleural abnormality. Normal size heart. Normal mediastinum and yissel. Normal visualized pulmonary arteries. Normal visualized aortic arch and descending thoracic aorta. Henderson rods in the thoracic spine. Bony structures are otherwise unremarkable. There is no demonstrated abnormality of the visualized soft tissue structures of the upper abdomen. RAD/Chest PA and Lateral IMPRESSION: No acute findings. Electronically Signed: Bethany Strauss MD at 20:36 EST Tel , Service support ,
[2019-08-07 20:34] LABS: AST(SGOT) 42 U/L (15-37); Alanine Aminotransfer ALT/SGPT 39 U/L (13-56); Albumin, Serum 4.1 g/dL (3.2-5.0); Alkaline Phosphatase 72 U/L (45-117); Anion Gap 9 (5-15); BUN 12 mg/dL (7-18); BUN/Creat Ratio 17.2 RATIO (10-20); Calcium,Total 8.9 mg/dL (8.5-10.1); Chloride 107 mmol/L (98-107); EST Glomerular Filtration Rate 107 mL/min (>60); Est Glom Filt Rate - Afr Amer 130 mL/min (>60); Estimated Creatinine Clearance 114.01 ml/min; Globulin 4.1 g/dL (2.2-4.2); Glucose 80 mg/dL (74-106); Lipase 134 U/L (73-393); Potassium 3.3 mmol/L (3.5-5.1); Protein, Total 8.2 g/dL (6.4-8.2); Sodium Level 140 mmol/L (136-145)
[2019-08-07 20:45] LABS: Bacteria 0 SEEN /hpf (None Seen); Mucous, Urine 0 SEEN /hpf (<or=2+); White Blood Cells 0 SEEN /hpf (0-5)
[2019-08-07 21:36] LABS: Color, Urine Yellow (Yellow); Glucose, Dipstick Normal (Normal); Leukocyte Esterase-Dipstick Negative /ul (Negative); Nitrite-Dipstick Negative (Negative); Occult Blood-Urine 10 /ul (Negative); Protein-Dipstick 30 mg/dl (Negative); Specific Gravity, Urine 1.025 (1.002-1.030); Urine Bilirubin Dipstick Negative (Negative); Urine Clarity Sl. Cloudy (Clear); Urine Urobilinogen Normal (Normal)
[2019-08-07 21:48] LABS: Ketone-Dipstick 150 mg/dl (Negative)
[2019-08-07 21:52] LABS: Red Blood Cells-Urine 0-5 SEEN /hpf (0-5); Squamous Epithelial Cells - UA 0-5 SEEN /hpf (5-10)
[2019-08-07 22:14] LABS: Internal QC Validated? YES +Cl - CLEAR BKGD; Pregnancy, Urine Negative Negative
[2019-08-07] MEDS: Acetaminophen 500 MG Tablet 1000 MG PO (22:57)
[2019-08-07] MEDS: DiphenhydrAMINE 50 MG/ML Syringe 25 MG IV (22:58)
[2019-08-07] MEDS: proCHLORPERazine 10 MG/2 ML Vial IV (22:59)
[2019-08-07] MEDS: 0.9% Normal Saline 1,000 ML 999 ML IV (23:02)
[2019-08-08 00:24] VITALS: BP 120/80; PULSE 86; RESP 16; O2SAT 96
== END 2019-08-08 00:39 | disposition home or self-care (01) ==
PROVIDERS: Emergency Provider Emergency Medicine; Family Provider Student in an Organized Health Care Education/Training Program; PCP Student in an Organized Health Care Education/Training Program
DX: R11.2 Nausea with vomiting, unspecified (principal); M79.10 Myalgia, unspecified site; R55 Syncope and collapse
CPT/HCPCS: 71046; 80053; 81001; 81025; 83690; 84484; 85025; 87804; 93005; 96361; 96374; 96375; 99285; J7030; A4216; J2405

== ENCOUNTER 2020-04-01 00:01 | Emergency (ER) | payer MEDICAID, SELFPAY ==
[2020-04-01 00:01] VITALS: BP 119/92; PULSE 64; RESP 16; RESP 18; TEMP 36.4; BMI 35.0
--- NOTE | 2020-04-01 00:20 | CT_ITS ---
STUDY: CT BRAIN WITHOUT CONTRAST REASON FOR EXAM: Female, 25 years old. FRONTAL AND RT SIDED HEADACHE,NAUSEA AND VOMITING -- RT FLANK PAIN -- HX:MIGRAINES,KIDNEY STONES,SCOLIOSIS -- SURGERY:APPENDECTOMY,CHOLECYSTECTOMY,HARRING-TON RODS,TUBAL LIGATION RADIATION DOSAGE (If Supplied By Facility): CTDIvol = ( 44.99 ) mGy, DLP = ( 812.98 ) mGycm TECHNIQUE: Transaxial CT imaging of the brain was performed without administration of intravenous contrast material. Individualized dose optimization techniques were used for this CT. COMPARISON: No relevant priors. FINDINGS: Normal soft tissue structures. Normal calvarium. Normal size ventricles and extra-axial spaces for the patient''s age. Normal white matter tracts of the cerebral hemispheres. Normal basal ganglia and thalami. Normal brainstem. Normal cerebellum. There is no intracranial hemorrhage. There are no findings of an acute ischemic infarction. There is mild mucosal thickening within the paranasal sinuses. There is mild edema of the turbinates. CT/Brain/Head without Contrast IMPRESSION: Normal unenhanced CT scan of the brain. Mild inflammatory changes paranasal sinuses Electronically Signed: Benito Buchanan, at 1:09 EDT Tel , Service support ,
--- NOTE | 2020-04-01 00:21 | CT_ITS ---
STUDY: CT ABDOMEN AND PELVIS WITHOUT CONTRAST REASON FOR EXAM: Female, 25 years old. FRONTAL AND RT SIDED HEADACHE,NAUSEA AND VOMITING -- RT FLANK PAIN -- HX:MIGRAINES,KIDNEY STONES,SCOLIOSIS -- SURGERY:APPENDECTOMY,CHOLECYSTECTOMY,[place] RODS,TUBAL LIGATION RADIATION DOSAGE (If Supplied By Facility): CTDIvol = ( 14.56 ) mGy, DLP = ( 691.25 ) mGycm TECHNIQUE: Transaxial images were obtained from the dome of the diaphragm to the symphysis pubis without oral contrast, and without intravenous contrast. Sagittal and coronal images were reconstructed. Individualized dose optimization techniques were used for this CT. COMPARISON: CT abdomen and pelvis 06/29/2018. FINDINGS: This is a limited non-IV nonoral contrast study. The visualized lung bases are unremarkable. The visualized portions of the heart are within normal limits. Normal liver. There is prior cholecystectomy. Normal spleen. Normal pancreas. Normal bilateral adrenal glands. Normal right kidney. No right renal calculi. There is 2 mm left renal calculus. There is no hydronephrosis or ureteral calculi. Normal visualized stomach. Normal small intestine. There is moderate colonic fecal load. There is surgical staple line at the base of the cecum from prior appendectomy. Normal abdominal aorta. Normal inferior vena cava. Normal retroperitoneum. Normal urinary bladder. There is mild anterior abdominal wall periumbilical fatty hernia. There is mild lumbar spine levoscoliosis. There are fixation rods within the lower thoracic and lumbar spine. Bilateral fallopian tube surgical CT/Abdomen/Pelvis without Cont IMPRESSION: Limited non-IV nonoral contrast study 2 mm left renal calculus Prior cholecystectomy and appendectomy Bilateral fallopian tube surgical clips Mild anterior abdominal wall periumbilical fatty hernia mild lumbar spine levoscoliosis. There are fixation rods within the lower thoracic and lumbar spine. Electronically Signed: Benito Buchanan, at 1:20 EDT Tel , Service support ,
--- NOTE | 2020-04-01 00:21 | ED.DCSUM_ITS ---
- ER Visit Summary Date of Service: 04/01/20 Chief Complaint: Headache History of Present Illness: The patient is a 25 F resents with the migraine headache that began today while she was at work. Patient states she has had nausea and vomiting. Patient states this is similar to prior migraine headaches but worse. Patient states her headache feels like tightness and pressure. Patient admits to some changes in her vision and photophobia. Patient denies any visual loss. Patient denies any paresthesias or weakness. Patient also thinks she has a kidney stone. Patient states she has pain in her flank. Patient denies any dysuria or hematuria however. Physical Examination: Vital signs are stable. Patient is afebrile. Patient is in no acute distress. Cranial nerves II through XII are intact. There are no focal motor or sensory deficits noted. Heart was regular rate and rhythm. Lungs are clear and equal bilaterally. Abdomen is soft. Bowel sounds are normal. There is no tenderness. There is mild bilateral CVA tenderness. There is no rebound or guarding noted. Oral mucosa is pink and moist. Neck is supple. Trachea is midline. There is no JVD. Test Results: CT scan of the brain was obtained was within normal limits. CBC and metabolic profile was within normal limits. Urinalysis showed occult blood of 150. There were 5-10 white blood cells. There is no evidence of urinary tract infection. CT scan of the abdomen and pelvis was obtained. There is a 2 mm left renal calculus but no obstruction. This was interpreted by the radiologist and reviewed by myself. Emergency Department Course and Treatment: Patient was given IV fluids, Reglan, and Benadryl. Patient had no relief of her headache with this. Patient was given injection of Toradol and Imitrex. Patient states her headache was only minimally improved with this. Patient was given a dose of Norflex. Disposition: Discharge home Impression: Headache This note was generated with [employer] dictation software. It may contain incorrect words, spelling, and punctuation that were not noted in review of the chart prior to signing ED Disposition - Plan for ED Patient: Disposition: Home or Assisted Living Diagnosis: Headache Instructions: ED Headache Unspecified Referrals: Dario Poe DO [Primary Care Provider] - 3-5 Days
[2020-04-01 00:29] LABS: Absolute Lymphocyte Count 2.33 X10^3/uL (0.83-4.51); Absolute Neutrophil Count 4.5 X10^3/uL (2.0-7.7); Basophil# 0.02 X10^3/uL; Basophil% 0.3 % (0-1); Eosinophil# 0.09 X10^3/uL; Eosinophils% 1.2 % (0-5); Hematocrit 40.9 % (37-47); Hemoglobin 13.3 g/dL (12.0-15.0); Lymphocyte # 2.33 X10^3/ul (4.0); Lymphocyte % 30.6 % (19-41); Mean Corp Hgb Conc 32.5 g/dL (32-36); Mean Corpuscular Volume 86.1 fL (81-99); Mean Platelet Vol. 11.1 fl (6.2-12.0); Monocyte# 0.65 X10^3/uL; Monocyte% 8.5 % (0-10); NRBC Flagged by Analyzer 0 % (0-5); Neutrophil # 4.51 X10^3/uL (2.7-7.7); Neutrophil % 59.1 % (47-70); Platelet Count 173 K/mm3 (150-450); RBC Distribution Width CV 12.1 % (11.6-14.6); Red Blood Count 4.75 M/mm3 (4.2-5.4); White Blood Count 7.6 K/mm3 (4.4-11.0)
[2020-04-01 00:40] LABS: Color, Urine Yellow (Yellow); Glucose, Dipstick Normal (Normal); Ketone-Dipstick Negative (Negative); Leukocyte Esterase-Dipstick Negative /ul (Negative); Mucous, Urine 0 SEEN /hpf (<or=2+); Nitrite-Dipstick Negative (Negative); Occult Blood-Urine 150 /ul (Negative); Protein-Dipstick Negative (Negative); Red Blood Cells-Urine 0 SEEN /hpf (0-5); Specific Gravity, Urine 1.015 (1.002-1.030); Urine Bilirubin Dipstick Negative (Negative); Urine Clarity Clear (Clear); Urine Urobilinogen Normal (Normal)
[2020-04-01 00:46] LABS: Bacteria 1+ /hpf (None Seen); Squamous Epithelial Cells - UA 0-5 SEEN /hpf (5-10); White Blood Cells 5-10 SEEN /hpf (0-5)
[2020-04-01] MEDS: 0.9% Normal Saline 1,000 ML 999 ML IV (00:51)
[2020-04-01 00:52] LABS: Anion Gap 5 (5-15); BUN 8 mg/dL (7-18); BUN/Creat Ratio 11.2 RATIO (10-20); Calcium,Total 8.8 mg/dL (8.5-10.1); Chloride 110 mmol/L (98-107); Creatinine, Serum 0.72 mg/dL (0.55-1.02); EST Glomerular Filtration Rate 104 mL/min (>60); Est Glom Filt Rate - Afr Amer 126 mL/min (>60); Estimated Creatinine Clearance 109.87 ml/min; Glucose 88 mg/dL (74-106); Potassium 3.7 mmol/L (3.5-5.1); Sodium Level 136 mmol/L (136-145)
[2020-04-01] MEDS: DiphenhydrAMINE 50 MG/ML Syringe 25 MG IV (00:53)
[2020-04-01] MEDS: Metoclopramide 10 MG/2 ML Vial IV (00:53)
[2020-04-01 00:56] VITALS: RESP 18; O2SAT 98
[2020-04-01] MEDS: Ketorolac 30 MG/ML Syringe IV (01:58)
[2020-04-01] MEDS: SUMAtriptan 6 MG/0.5 ML Vial SC (01:59)
[2020-04-01] MEDS: Orphenadrine 60 MG/2 ML Ampul IM (04:14)
[2020-04-01 04:20] VITALS: BP 101/59; PULSE 62; RESP 16; O2SAT 97
== END 2020-04-01 04:24 | disposition home or self-care (01) ==
PROVIDERS: Emergency Provider Emergency Medicine; PCP Student in an Organized Health Care Education/Training Program
DX: G43.909 Migraine, unspecified, not intractable, without status migrainosus (principal); N20.0 Calculus of kidney; F32.9 Major depressive disorder, single episode, unspecified; F41.9 Anxiety disorder, unspecified; Z90.49 Acquired absence of other specified parts of digestive tract
CPT/HCPCS: 70450; 74176; 80048; 81001; 85025; 94760; 96361; 96372; 96374; 96375; 99284; J7030; A4216; J3030

== ENCOUNTER 2020-04-11 23:46 | Emergency (ER) | payer MEDICAID, SELFPAY ==
[2020-04-11 23:50] VITALS: BP 119/71; PULSE 82; RESP 15; TEMP 36.5; O2SAT 97; BMI 35.0
--- NOTE | 2020-04-12 00:24 | RAD_ITS ---
HISTORY: S/P FALLC/O PAIN RT LATERAL MALLEOLUS WITH TINGLING IN TOES Technique: Right foot AP, lateral, and oblique radiographs Comparison: None available Findings: No acute fracture or dislocation. Osseous mineralization, joint spaces, and alignment otherwise appear preserved as imaged. No focal abnormality or radiopaque foreign body is seen in the surrounding soft tissues. RAD/Foot min 3 Views IMPRESSION: No acute osseous abnormality identified in the foot. at 0126 Reported and signed by: Ozzie Elder MD Electronically Signed: Ozzie Elder MD at 1:25 EDT Tel , Service support ,
--- NOTE | 2020-04-12 00:24 | RAD_ITS ---
HISTORY: S/P FALLC/O PAIN RT LATERAL MALLEOLUS WITH TINGLING IN TOES COMPARISON: None FINDINGS: # of images incl. paperwork: 3 XR Ankle Min 3 Views : No fracture or osseous abnormality. The ankle mortise is intact. Soft tissue swelling is is present surrounding the ankle, laterally greater than medially. RAD/Ankle min 3 Views IMPRESSION: Soft tissue swelling about the Right ankle at 0119 Reported and signed by: Ozzei Elder MD Electronically Signed: Ozzie Elder MD at 1:18 EDT Tel , Service support ,
--- NOTE | 2020-04-12 00:33 | ED.VISSUMM ---
- ER Visit Summary Date of Service: 04/12/20 Chief Complaint: Right ankle pain History of Present Illness: The patient is a 25 F presenting with right ankle pain. Patient states she stepped down out of a truck and twisted her right ankle. She did fall to the ground but did not hit her head or lose consciousness. She complains of right ankle pain. Denies other injuries. Physical Examination: Vitals are stable. Patient is afebrile. Alert no acute distress. HEENT exam is unremarkable. Neck is supple. Lungs are clear and equal bilaterally. Heart is regular rate and rhythm. Extremities right lateral ankle tenderness and swelling. No proximal fibula tenderness. No Achilles tendon tenderness. Tenderness of fifth metatarsal. Normal distal pulses. Skin is warm and dry. No focal neurologic deficit. Remainder of exam is unremarkable. Emergency Department Course and Treatment: Ice pack was applied. Right foot and ankle x-ray shows soft tissue swelling about the Right ankle. No acute osseous abnormality identified in the foot. She was given Aircast and crutches. She was given a prescription for Naprosyn. Advised to follow-up with primary care physician. Advised return to ED for worsening complaints. Disposition: Discharge home Impression: Right ankle sprain This note was generated with [employer] dictation software. It may contain incorrect words, spelling, and punctuation that were not noted in review of the chart prior to signing ED Disposition - Plan for ED Patient: Instructions: ED Sprain Ankle W X Ray Prescriptions: Naproxen [Naprosyn] 500 mg PO BID PRN #20 tab Prescription Printed Referrals: Dario Poe DO [Primary Care Provider] -
--- NOTE | 2020-04-12 01:32 | ED.DEP ---
ED Disposition - Plan for ED Patient: Instructions: ED Sprain Ankle W X Ray Prescriptions: Naproxen [Naprosyn] 500 mg PO BID PRN #20 tab Prescription Printed Referrals: Dario Poe DO [Primary Care Provider] -
[2020-04-12] MEDS: HYDROcodone Bitartrate/Apap 5/325 Tablet PO (02:17)
== END 2020-04-12 02:18 | disposition home or self-care (01) ==
PROVIDERS: Emergency Provider Emergency Medicine; PCP Student in an Organized Health Care Education/Training Program
DX: S93.401A Sprain of unspecified ligament of right ankle, initial encounter (principal); X50.1XXA Overexertion from prolonged static or awkward postures, initial encounter; Y93.89 Activity, other specified; Y92.812 Truck as the place of occurrence of the external cause; F32.9 Major depressive disorder, single episode, unspecified; F41.9 Anxiety disorder, unspecified
CPT/HCPCS: 73610; 73630; 99283

== ENCOUNTER 2020-04-16 22:21 | Emergency (ER) | payer MEDICAID, SELFPAY ==
[2020-04-16 22:21] VITALS: BP 130/84; PULSE 95; RESP 14; TEMP 36.4; O2SAT 100; BMI 35.0
--- NOTE | 2020-04-16 22:55 | RAD_ITS ---
STUDY: X-RAY - RIGHT FOOT CLINICAL: Female, 25 years old. PAIN IN RIGHT FOOT, BRUISING. TECHNIQUE: 3 view(s) of the foot. COMPARISON: Prior study of 04/12/2020 FINDINGS: Normal talus, calcaneus, and tarsal bones. Normal visualized subtalar, talonavicular, calcaneocuboid, tarsal and tarsometatarsal articulations. Normal metatarsi. Normal metatarsophalangeal joint of the great toe. Normal tibial and fibular sesamoid bones. Normal interphalangeal joint of the great toe. Normal phalanges of the great toe. Normal second through fifth metatarsophalangeal joints. Normal interphalangeal joints and phalanges of the lesser toes. The soft tissue structures are unremarkable. RAD/Foot min 3 Views IMPRESSION: Normal x-ray examination of the foot. Electronically Signed: Rodolfo Keller MD at 23:55 EDT , Service support ,
--- NOTE | 2020-04-16 23:06 | ED.VIS.LOWEX ---
History of Present Illness Chief Complaint: Lower Extremity Injury Informant: Patient Occurred: Today Mechanism/Context: Slip Associated Symptoms: Parasthesia Narrative: Patient is a 25-year-old female presenting with worsening right ankle pain. Patient sprained her ankle getting out of the truck 5 days ago. She is evaluated in the ER and had x-rays taken of her foot and ankle which did not show an acute fracture. Patient was given a Aircast. 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 She not exactly sure which way she twisted it. She had worsening pain in her ankle and now has paresthesias in her foot. She denies any difficulty moving her toes or foot but states it is quite painful. She denies any fall or head injury. She is concerned she might have reinjured something or made something worse. She has no other complaints at this time. Patient not take any medicine for pain prior to arrival. She states most medicines do not work on her. Past Medical History - Allergies and Home Meds Allergies/Adverse Reactions: Allergies vancomycin Allergy (Verified 04/16/20 22:21) Other Primary Care Physician: Dario Poe DO [Primary Care Provider] - Past Medical History: - - Depression, anxiety, chronic back pain, kidney stones Surgical History: appendectomy, - - Tubal ligation, back surgery for scoliosis Smoking Status: Never smoker - Family History Maternal Family History: Family History (Last Reviewed 06/29/18 @ 13:41 by Caity AQUINO PAGloryC) Mother Diabetes Hypertension Father Hypertension Grandmother Diabetes Family History: Reports: No pertinent history Paternal Family History: Family History (Last Reviewed 06/29/18 @ 13:41 by Caity AQUINO PA-C) Mother Diabetes Hypertension Father Hypertension Grandmother Diabetes Family History: Reports: No pertinent history Review of Systems General: Denies: Chills, Fever, Sweats Eyes: Denies: Visual changes - bilaterally, Diplopia ENT: Denies: Rhinorrhea, Sore throat Cardiovascular: Denies: Chest pain, Palpitations Respiratory: Denies: Dyspnea, Cough, Dyspnea on exertion Gastrointestinal: Denies: Abdominal pain, Nausea, Vomiting, Diarrhea, Melena, Hematochezia Genitourinary: Denies: Dysuria, Hematuria, Frequency Musculoskeletal: Reports: Swelling, Extremity Pain - Right ankle. Denies: Back pain Skin: Denies: Rash, Wounds Neurological: Reports: Parasthesia - Right foot. Denies: Headache, Weakness, Numbness Physical Exam Vital Signs/Narrative: Vital Signs Temp Pulse Resp BP Pulse Ox 04/16/20 22:21 97.5 F L 95 14 130/84 H 100 Inital Vital Signs reviewed: Yes - Extremity Exam Right Knee: Negative for: Contusion, Deformity, Edema, Hematoma, Limited ROM Right Tib fib: - - No tenderness of the fibular head. Negative for: Contusion, Deformity, Edema, Limited ROM Right Ankle: Edema, Limited ROM - Secondary to pain, - - No bony tenderness, area of maximum pain is anterior/lateral ankle. Ecchymosis is present most pronounced on the lateral aspect of the ankle.. Negative for: Contusion, Hematoma Right Foot: Edema, - - Mild diffuse tenderness throughout. No pinpoint bony tenderness. Ecchymosis present over the dorsal aspect of the foot. Negative for: Contusion, Hematoma, Limited ROM General: Well nourished, Well developed Head: Normocephalic, Atraumatic Eyes: Perrl, EOMI ENT: No Trauma, Moist Mucous Membranes Neck: Nontender, Full ROM Cardiovascular: Regular rate, Regular rhythm, - - 2+ bilateral DP and PT pulses Respiratory: No distress, CTA bilaterally, Chest nontender Abdomen: Soft, Nontender Skin: Normal color, No rash, - - Scattered ecchymosis over right ankle and foot, appears to be a couple days old Neurological: Alert, Oriented x3, Cranial nerves II-XII grossly intact, Normal Strength, Normal Sensation Psychological: Normal affect Diagnostic/Tx/Re-eval Clinical Impression(s) from Imaging Studies Foot X-Ray 04/16/20 22:55 IMPRESSION: Normal x-ray examination of the foot. Electronically Signed: Rodolfo Keller MD at 23:55 EDT , Service support , Ankle X-Ray 04/16/20 23:40 IMPRESSION: Soft tissue swelling over the lateral malleolus. No evidence of fracture or dislocation. Electronically Signed: Rodolfo Keller MD at 23:52 EDT , Service support , - Medical Decision Making Patient is evaluated for repeat injury to her right ankle. She sprained her ankle last week. She does have associated ecchymosis and swelling but is hard to tell what is acute and what is from her prior injury. Repeat films show soft tissue swelling but again no fracture. Patient is placed in Ervin wrap and she has an air stirrup at home but feels like it is already falling apart. She is given Motrin and Tylenol for pain control. Patient states she is off work tomorrow so she will be able to rest. She is counseled on rice therapy. Patient is counseled on signs and symptoms requiring return to the emergency room. Patient verbalizes agreement and understand this plan. Patient discharged home in stable and improved condition. ED Disposition - Plan for ED Patient: Disposition: Home or Assisted Living Diagnosis: Right ankle sprain Instructions: ED Sprain Ankle W X Ray Referrals: Dario Poe DO [Primary Care Provider] - Additional Instructions: Continue take ibuprofen as this will help with the swelling as well as the pain. Nothing is broken today on x-rays.
[2020-04-16] MEDS: Acetaminophen 500 MG Tablet 1000 MG PO (23:09)
[2020-04-16] MEDS: Ibuprofen 600 MG Tablet PO (23:09)
--- NOTE | 2020-04-16 23:40 | RAD_ITS ---
STUDY: X-RAY - RIGHT ANKLE REASON FOR EXAM: Female, 25 years old. INJURY TO RIGHT ANKLE, PAIN AND BRUISING. TECHNIQUE: 3 view(s) of the ankle. COMPARISON: Previous study of 04/12/2020 FINDINGS: Normal visualized distal tibia and fibula. Normal medial and lateral malleoli. Normal tibiotalar articulation and ankle mortise. Normal visualized talus and calcaneus. The visualized subtalar, talonavicular, calcaneocuboid and tarsal articulations are normal. There is soft tissue swelling over the lateral malleolus. RAD/Ankle min 3 Views IMPRESSION: Soft tissue swelling over the lateral malleolus. No evidence of fracture or dislocation. Electronically Signed: Rodolfo Keller MD at 23:52 EDT , Service support ,
[2020-04-17 00:30] VITALS: BP 122/71; PULSE 74; RESP 17; O2SAT 98
== END 2020-04-17 00:31 | disposition home or self-care (01) ==
PROVIDERS: Emergency Provider Emergency Medicine; PCP Student in an Organized Health Care Education/Training Program
DX: S93.401A Sprain of unspecified ligament of right ankle, initial encounter (principal); X50.1XXA Overexertion from prolonged static or awkward postures, initial encounter; Y93.E5 Activity, floor mopping and cleaning; F32.9 Major depressive disorder, single episode, unspecified; F41.9 Anxiety disorder, unspecified
CPT/HCPCS: 73610; 73630; 99283

== ENCOUNTER 2020-09-30 19:29 | Emergency (ER) | payer MEDICAID, SELFPAY ==
[2020-09-30 19:29] VITALS: BP 142/84; PULSE 66; RESP 15; TEMP 36.4; O2SAT 100; BMI 35.0
--- NOTE | 2020-09-30 21:10 | CT_ITS ---
STUDY: CT ABDOMEN AND PELVIS WITHOUT CONTRAST REASON FOR EXAM: Female, 25 years old. Left flank pain since this am and burning with urination, hx fried rods, tubal, ks, gb RADIATION DOSAGE (If Supplied By Facility): CTDIvol = ( 19.50 ) mGy, DLP = ( 950.13 ) mGycm TECHNIQUE: Transaxial images were obtained from the dome of the diaphragm to the symphysis pubis without oral contrast, and without intravenous contrast. Sagittal and coronal images were reconstructed. Individualized dose optimization techniques were used for this CT. COMPARISON: 04/01/2020. FINDINGS: Lung bases are clear. Heart size is normal. The liver is unremarkable. The gallbladder is unremarkable. The spleen and pancreas are unremarkable. The adrenal glands are normal. Punctate nonobstructing renal calculi. The kidneys are otherwise unremarkable. No hydronephrosis. Ureters are normal in course and caliber. No ureteral stones. The aorta is normal in caliber. There is no free fluid, free air or organized collection. No bowel obstruction or inflammatory change. Appendix is not seen. Urinary bladder is unremarkable. Small, fat-containing supraumbilical incisional hernia. Thoracic and lumbar spinal rods. Marked sclerosis of the sacroiliac joints. CT/Abdomen/Pelvis without Cont IMPRESSION: 1. No acute findings. No obstructive uropathy. 2. Nonobstructing bilateral renal calculi. 3. Fat-containing incisional hernia. 4. Sclerosis of the sacroiliac joints may be associated with inflammatory bowel disease, ankylosing spondylitis, less likely rheumatoid arthritis. Electronically Signed: Bethany Strauss MD at 22:25 EST Tel , Service support ,
[2020-09-30] MEDS: Ketorolac 15 MG/ML Vial IV (21:21)
[2020-09-30] MEDS: Ondansetron 4 MG/2 ML Vial IV (21:21)
[2020-09-30] MEDS: Morphine 4 MG/ML Syringe IV (21:21)
[2020-09-30 21:23] LABS: Mucous, Urine 0 SEEN /hpf (<or=2+); Red Blood Cells-Urine 0 SEEN /hpf (0-5); White Blood Cells 0 SEEN /hpf (0-5)
[2020-09-30] MEDS: 0.9% Normal Saline 1,000 ML 250 ML IV (21:23)
[2020-09-30 21:38] LABS: Color, Urine Yellow (Yellow); Glucose, Dipstick Normal (Normal); Ketone-Dipstick Negative (Negative); Leukocyte Esterase-Dipstick Negative /ul (Negative); Nitrite-Dipstick Negative (Negative); Occult Blood-Urine Negative /ul (Negative); Protein-Dipstick Negative (Negative); Specific Gravity, Urine 1.015 (1.002-1.030); Urine Bilirubin Dipstick Negative (Negative); Urine Clarity Clear (Clear); Urine Urobilinogen 1 mg/dl (Normal); Urine pH 6.5 (5.0 - 8.0)
[2020-09-30 21:43] LABS: Absolute Lymphocyte Count 3.28 X10^3/uL (0.83-4.51); Absolute Neutrophil Count 5.1 X10^3/uL (2.0-7.7); Basophil# 0.02 X10^3/uL; Basophil% 0.2 % (0-1); Eosinophil# 0.13 X10^3/uL; Eosinophils% 1.4 % (0-5); Hematocrit 41.6 % (37-47); Hemoglobin 13.6 g/dL (12.0-15.0); Lymphocyte # 3.28 X10^3/ul (4.0); Lymphocyte % 35.5 % (19-41); Mean Corp Hgb Conc 32.7 g/dL (32-36); Mean Corpuscular Hgb 28.7 pg (27.0-32.0); Mean Corpuscular Volume 87.8 fL (81-99); Mean Platelet Vol. 11.2 fl (6.2-12.0); Monocyte# 0.72 X10^3/uL; Monocyte% 7.8 % (0-10); NRBC Flagged by Analyzer 0 % (0-5); Neutrophil # 5.05 X10^3/uL (2.7-7.7); Neutrophil % 54.8 % (47-70); Platelet Count 209 K/mm3 (150-450); RBC Distribution Width CV 12.5 % (11.6-14.6); RBC Distribution Width SD 40.1 fl (35.1-43.9); Red Blood Count 4.74 M/mm3 (4.2-5.4); White Blood Count 9.2 K/mm3 (4.4-11.0)
[2020-09-30 21:46] LABS: Bacteria RARE /hpf (None Seen); Squamous Epithelial Cells - UA 0-5 SEEN /hpf (5-10)
[2020-09-30 21:54] LABS: Internal QC Validated? YES +Cl - CLEAR BKGD; Pregnancy, Serum, hCG Quali. NEGATIVE Negative
[2020-09-30 21:58] LABS: Anion Gap 7 (5-15); BUN 9 mg/dL (7-18); BUN/Creat Ratio 12.8 RATIO (10-20); Chloride 106 mmol/L (98-107); EST Glomerular Filtration Rate 106 mL/min (>60); Est Glom Filt Rate - Afr Amer 128 mL/min (>60); Estimated Creatinine Clearance 117.39 ml/min; Glucose 75 mg/dL (74-106); Potassium 3.2 mmol/L (3.5-5.1); Sodium Level 137 mmol/L (136-145)
--- NOTE | 2020-09-30 22:31 | ED.VIS.GEN ---
History of Present Illness Chief Complaint: Complaint Detail of Chief Complaint: back pain Informant: Patient Onset: Today Context: - - Upon waking up Timing: Continuous Quality: Aching Location: Left lower quadrant and left low back, radiating into left lower extremity Current Severity: Moderate Maximum Severity: Moderate Worsened by: Urinating Relieved by: Nothing in particular Associated Symptoms: Numbness in LLE earlier but not now Narrative: Patient woke up with left low back pain that has worsened and radiating into her left groin and down her left lower extremity, often below the knee. She states she has had kidney infections and kidney stones in the past, this feels like 1 or both of them but she cannot tell them apart. She has had some nausea and an episode of vomiting, no fevers or chills. She also has a history of low back problems, and has had scoliosis repair at [facility] remotely. - Past Medical History (1) Iron deficiency anemia Status: Chronic (2) Depression Status: Chronic (3) Scoliosis Status: Chronic (4) Chronic low back pain Status: Chronic Past Medical History - Allergies and Home Meds Allergies/Adverse Reactions: Allergies vancomycin Allergy (Verified 09/30/20 19:31) Other Primary Care Physician: Dario Poe DO [Primary Care Provider] - Surgical History: appendectomy, - - Tubal ligation, back surgery for scoliosis Smoking Status: Never smoker - Family History Maternal Family History: Family History (Last Reviewed 06/29/18 @ 13:41 by Caity AQUINO PAGloryC) Mother Diabetes Hypertension Father Hypertension Grandmother Diabetes Family History: Reports: No pertinent history Paternal Family History: Family History (Last Reviewed 06/29/18 @ 13:41 by Caity AQUINO, PA-C) Mother Diabetes Hypertension Father Hypertension Grandmother Diabetes Family History: Reports: No pertinent history Review of Systems General: Denies: Chills, Fever, Sweats Eyes: Denies: Visual changes - bilaterally, Diplopia ENT: Denies: Rhinorrhea, Sore throat Cardiovascular: Denies: Chest pain, Palpitations Respiratory: Denies: Dyspnea, Cough, Dyspnea on exertion Gastrointestinal: Reports: Abdominal pain, Nausea, Vomiting. Denies: Diarrhea, Melena, Hematochezia Genitourinary: Denies: Dysuria, Hematuria, Frequency Musculoskeletal: Reports: Back pain, Extremity Pain. Denies: Swelling Skin: Denies: Rash, Wounds Neurological: Denies: Headache, Weakness, Numbness Physical Exam Vital Signs/Narrative: Vital Signs Temp Pulse Resp BP Pulse Ox 09/30/20 19:29 97.6 F L 66 15 142/84 H 100 Inital Vital Signs reviewed: Yes General: Well nourished, Well developed, No Acute Distress Head: Normocephalic, Atraumatic Eyes: Perrl, EOMI ENT: Moist mucous membranes, No rhinorrhea Neck: Supple, Nontender Cardiovascular: Regular rate, Regular rhythm, No murmurs Respiratory: No distress, CTA bilaterally, Chest nontender Abdomen: Soft, Nondistended, Normal bowel sounds, Tender - Mild suprapubic and left lower quadrant. Negative for: Guarding, Rebound tenderness Back: Nontender, Normal Inspection, CVA tenderness - Mild left only Extremities: Nontender, No edema, - - Positive ipsilateral left lower extremity straight leg raise while lying. Negative cross leg and right lower extremity. Skin: Normal color, No rash, No Trauma Neurological: Alert, Oriented x3, Cranial nerves II-XII grossly intact, Normal Strength, Normal Sensation, Normal DTR - Symmetric, with downgoing toes and no clonus, Normal Gait Psychological: Normal affect, Normal Mood Diagnostic/Tx/Re-eval Impressions Abdomen/Pelvis CT 09/30/20 21:10 IMPRESSION: 1. No acute findings. No obstructive uropathy. 2. Nonobstructing bilateral renal calculi. 3. Fat-containing incisional hernia. 4. Sclerosis of the sacroiliac joints may be associated with inflammatory bowel disease, ankylosing spondylitis, less likely rheumatoid arthritis. Electronically Signed: Bethany Strauss MD at 22:25 EST Tel , Service support , 09/30/20 21:10 Abdomen/Pelvis without Cont [CT] Stat Laboratory Results 09/30/20 09/30/20 09/30/20 19:40 21:20 21:20 WBC 9.2 RBC 4.74 Hgb 13.6 Hct 41.6 MCV 87.8 MCH 28.7 MCHC 32.7 RDW Std Deviation 40.1 RDW Coeff of Kell 12.5 Plt Count 209 MPV 11.2 Immature Gran % (Auto) 0.300 Neut % (Auto) 54.8 Lymph % (Auto) 35.5 [place] % (Auto) 7.8 Eos % (Auto) 1.4 Baso % (Auto) 0.2 Absolute Neuts (auto) 5.1 Absolute Lymphs (auto) 3.28 Nucleated RBC % 0 Sodium 137 Potassium 3.2 L Chloride 106 Carbon Dioxide 24.0 Anion Gap 7 BUN 9 Creatinine 0.70 Estim Creat Clear Calc 117.39 Est GFR (MDRD) Af Amer 128 Est GFR (MDRD) Non-Af 106 BUN/Creatinine Ratio 12.8 Glucose 75 Calcium 9.0 Serum , Qual Urine Color Yellow Urine Clarity Clear Urine pH 6.5 Ur Specific [place] 1.015 Urine Protein Negative Urine Glucose (UA) Normal Urine Ketones Negative Urine Occult Blood Negative Urine Nitrite Negative Urine Bilirubin Negative Urine Urobilinogen 1 H Ur Leukocyte Esterase Negative Urine RBC 0 SEEN Urine WBC 0 SEEN Ur Squamous Epith Cells 0-5 SEEN Urine Bacteria RARE Urine Mucus 0 SEEN 09/30/20 21:20 WBC RBC Hgb Hct MCV MCH MCHC RDW Std Deviation RDW Coeff of Kell Plt Count MPV Immature Gran % (Auto) Neut % (Auto) Lymph % (Auto) [place] % (Auto) Eos % (Auto) Baso % (Auto) Absolute Neuts (auto) Absolute Lymphs (auto) Nucleated RBC % Sodium Potassium Chloride Carbon Dioxide Anion Gap BUN Creatinine Estim Creat Clear Calc Est GFR (MDRD) Af Amer Est GFR (MDRD) Non-Af BUN/Creatinine Ratio Glucose Calcium Serum , Qual NEGATIVE Urine Color Urine Clarity Urine pH Ur Specific [place] Urine Protein Urine Glucose (UA) Urine Ketones Urine Occult Blood Urine Nitrite Urine Bilirubin Urine Urobilinogen Ur Leukocyte Esterase Urine RBC Urine WBC Ur Squamous Epith Cells Urine Bacteria Urine Mucus - Medical Decision Making Differential includes kidney stone, pyelonephritis, intestinal etiologies of pain, and musculoskeletal low back issues with sciatica. As above, CT of the abdomen and pelvis, blood work, and urinalysis are all negative/normal. is negative. She does have bilateral nonobstructing nephrolithiasis, but this is not explaining any of her symptoms. Straight leg raises are quite uncomfortable especially with the left. By diagnosis of exclusion here, my suspicion is that this is sciatica. This led to discussions of chronic low back issues, however they have felt different than this. She is not under contract for any analgesics, but was being seen by pain management and had some dry needling done, and was referred to physical therapy which she has not yet completed. At this time I recommend that she follow-up, she certainly has no signs or symptoms of cauda equina syndrome, and I am comfortable prescribing her a short amount of analgesics. She was given Toradol, morphine, Zofran here, they helped a little but her pain returned worse, so she was given a dose of hydromorphone prior to discharge with a short prescription. She is comfortable with that overall plan. ED Disposition - Plan for ED Patient: Disposition: Home or Assisted Living Diagnosis: Acute left-sided back pain with sciatica Instructions: ED Sciatica Prescriptions: cycloBENZAPRine HCl [Flexeril] 10 mg PO TID PRN #20 tab PRN Reason: Muscle Spasm Prescription Printed Hydrocodone Bitart/Apap 5-325 [[place] 5MG-325MG] 1 tab PO Q4H PRN PRN 2 Days #12 tab PRN Reason: Pain Prescription Printed Referrals: Dario Poe, DO [Primary Care Provider] - 3-5 Days if not improving (Or your pain management doctor or your spine surgeon)
[2020-09-30] MEDS: HYDROmorphone 1 MG/ML Syringe IV (22:52)
[2020-09-30 22:55] VITALS: BP 108/70; PULSE 65; RESP 16; O2SAT 99
[2020-10-01 00:11] VITALS: BP 120/88; PULSE 70; RESP 18; O2SAT 98
== END 2020-10-01 00:13 | disposition home or self-care (01) ==
PROVIDERS: Emergency Provider Emergency Medicine; PCP Student in an Organized Health Care Education/Training Program
DX: M54.42 Lumbago with sciatica, left side (principal); G89.29 Other chronic pain; N20.0 Calculus of kidney; K43.2 Incisional hernia without obstruction or gangrene; F32.9 Major depressive disorder, single episode, unspecified; Z87.442 Personal history of urinary calculi; Z87.440 Personal history of urinary (tract) infections
CPT/HCPCS: 74176; 80048; 81001; 84703; 85025; 96361; 96374; 96375; 99283; J7030; J2405

== ENCOUNTER 2020-10-17 09:40 | Outpatient (RCR) | payer MEDICAID, SELFPAY | END 2020-11-06 23:59 | LOC: EMPH 09:40 | PROVIDERS: PCP Student in an Organized Health Care Education/Training Program; Referring Provider Family Medicine Geriatric Medicine; Visit Provider Family Medicine Geriatric Medicine | DX: Z03.818 Encounter for observation for suspected exposure to other biological agents ruled out (principal) | CPT/HCPCS: 87426 ==

== ENCOUNTER 2020-11-05 20:53 | Emergency (ER) | payer MEDICAID, SELFPAY ==
[2020-11-05 20:54] VITALS: BP 117/82; PULSE 78; RESP 18; TEMP 36.4; O2SAT 98; BMI 35.4
--- NOTE | 2020-11-05 21:03 | ED.VIS.GEN ---
History of Present Illness Chief Complaint: Upper Extremity Injury Informant: Patient Onset: Hours Context: Sudden Onset Timing: Continuous Quality: Throbbing pain Location: Right index finger Current Severity: Mild Maximum Severity: Moderate Worsened by: Movement Relieved by: Nothing Associated Symptoms: Laceration Narrative: Patient is a 25-year-old [id number] woman who was helping her move an engine from the garage. The entrance fell onto her right index finger. She presents because of pain and laceration. Patient denies paresthesia, anesthesia medics. She has no other complaints. She is not on anticoagulant. She has no allergies to penicillin. Tetanus needs updated. Prior similar symptoms: No Recent Illness/Hospitalization: No - Past Medical History (1) Chronic low back pain Status: Chronic (2) Depression Status: Chronic (3) Iron deficiency anemia Status: Chronic (4) Scoliosis Status: Chronic Past Medical History - Allergies and Home Meds Allergies/Adverse Reactions: Allergies vancomycin Allergy (Verified 09/30/20 19:31) Other Primary Care Physician: Dario Poe DO [Primary Care Provider] - Prior records reviewed: Yes Surgical History: appendectomy, - - Tubal ligation, back surgery for scoliosis Lives: Spouse/ Significant Other Smoking Status: Never smoker Alcohol: None Drugs: None - Family History Maternal Family History: Family History (Last Reviewed 06/29/18 @ 13:41 by Caity AQUINO PA-C) Mother Diabetes Hypertension Father Hypertension Grandmother Diabetes Family History: Reports: No pertinent history Paternal Family History: Family History (Last Reviewed 06/29/18 @ 13:41 by Caity AQUINO PA-C) Mother Diabetes Hypertension Father Hypertension Grandmother Diabetes Family History: Reports: No pertinent history Review of Systems General: Denies: Chills, Fever Gastrointestinal: Denies: Nausea, Vomiting Musculoskeletal: Reports: Swelling, Extremity Pain. Denies: Myalgias, Arthralgias, Neck pain Skin: Reports: Wounds. Denies: Rash, Abrasions Neurological: Denies: Weakness, Parasthesia, Numbness Hematologic: Denies: Easy bruising, Easy bleeding Physical Exam Vital Signs/Narrative: Vital Signs Temp Pulse Resp BP Pulse Ox 11/05/20 20:54 97.6 F L 78 18 117/82 H 98 Inital Vital Signs reviewed: Yes General: Well nourished, Well developed, Obese, Acute Distress Head: Normocephalic, Atraumatic Eyes: Perrl, EOMI Cardiovascular: Regular rate, Regular rhythm Respiratory: No distress Back: Nontender Extremities: No edema, - - The flexor digitorum superficialis and flexor digitorum profundus are intact. The extensor indices tendon is intact. Two-point discrimination is normal. There is no subungual hematoma noted. There is pain palpation over the distal phalanx.. Negative for: Nontender Skin: Normal color, No rash, Trauma - Duration volar ulnar side of the right index finger Neurological: Alert, Oriented x3, Cranial nerves II-XII grossly intact, Normal Strength, Normal Sensation Psychological: Normal affect Diagnostic/Tx/Re-eval Chest X-Ray - ED: Read by ED Physician 11/05/20 21:15 Finger(s) Min 2 Views [RAD] Stat Three-view x-ray of the right index finger reveals a comminuted nondisplaced distal phalanx fracture. The x-ray was interpreted by me. - Medical Decision Making X-ray of the finger was obtained to rule out fracture. If there is a fracture patient be treated with antibiotics. The digit was Nestabs by digital block. Please read procedure note Finger was reexamined after digital block took effect and grease/crime was removed. There is a 1 to 2 mm laceration and a 3 mm laceration volar crease of the DIP joint. The wound was irrigated. Patient was placed in aluminum splint and referred to Dr. Penn who is on-call for orthopedics ED Disposition - Plan for ED Patient: Disposition: Home or Assisted Living Diagnosis: Open nondisplaced fracture of distal phalanx of finger of right hand Instructions: ED Fracture, Finger, Open Prescriptions: Cephalexin [Keflex] 500 mg PO Q8 #14 capsule Transmission Status: Pending to [facility] Hydrocodone Bitart/Apap 5-325 [[place] 5MG-325MG] 1 tablet PO Q6H PRN PRN 3 Days #10 tablet PRN Reason: Pain Transmission Status: Sent to [facility] Referrals: Dario Poe DO [Primary Care Provider] - Bucky Pichardo DO [STAFF PHYSICIAN] - 2 Days for wound check Additional Instructions: Keep finger clean and dry. Do not remove dressing for 48 hours.
[2020-11-05] MEDS: Diphth,Pertuss(Acell),Tet Vac 0.5 ML Vial IM (21:13)
[2020-11-05] MEDS: Lidocaine 1% (20 ml mdv) 20 ML Vial INFILT (21:15)
--- NOTE | 2020-11-05 21:15 | RAD_ITS ---
INDICATION: Injury/Pain EXAMINATION/TECHNIQUE: X-RAY - RIGHT HAND XR Fingers Min 2 Views COMPARISON: None. FINDINGS: Acute slightly comminuted nondisplaced fracture of the second distal phalanx with intra-articular extension to the distal interphalangeal joint. No blastic or lytic lesions. No degenerative changes are seen. Soft tissue swelling of the second digit. RAD/Finger(s) Min 2 Views IMPRESSION: Acute nondisplaced fracture of the second distal phalanx. Electronically Signed: Kale Schrader MD at 21:29 EDT Tel , Service support ,
[2020-11-05] MEDS: HYDROcodone Bitartrate/Apap 5/325 Tablet PO ×2 (21:56→22:14)
[2020-11-05] MEDS: Cephalexin 250 MG Capsule 500 MG PO (21:56)
== END 2020-11-05 22:14 | disposition home or self-care (01) ==
PROVIDERS: Emergency Provider Emergency Medicine; PCP Student in an Organized Health Care Education/Training Program
DX: S62.660B Nondisplaced fracture of distal phalanx of right index finger, initial encounter for open fracture (principal); W22.8XXA Striking against or struck by other objects, initial encounter; Y93.89 Activity, other specified; Y92.008 Other place in unspecified non-institutional (private) residence as the place of occurrence of the external cause; Y99.9 Unspecified external cause status; E66.9 Obesity, unspecified; Z68.35 Body mass index [BMI] 35.0-35.9, adult
CPT/HCPCS: 73140; 90471; 90715; 99285

== ENCOUNTER 2021-02-02 15:47 | Emergency (ER) | payer OTHER, MEDICAID, SELFPAY ==
[2020-11-18 15:46] VITALS: BMI 36.4
[2021-02-02 15:48] VITALS: BP 115/71; PULSE 65; RESP 16; TEMP 36.7; O2SAT 99; BMI 35.6
--- NOTE | 2021-02-02 16:04 | EX.ED.DYSGE1 ---
HPI History of Present Illness Chief Complaint: Abd Pain Informant: patient Onset/Context/Timing Onset: Today Current Severity: Moderate Maximum Severity: Moderate Narrative Narrative: Patient presents with epigastric abdominal pain along with nausea, vomiting, and diarrhea. Patient states she felt well yesterday. No fever but she has had some chills. No blood in the vomitus or stool that she has noticed. [facility] Medical History Anxiety and depression Back problem Gallstones Kidney stones Home Medications fluoxetine 20 mg PO DAILY 04/01/20 [History Last Taken Unknown] cyclobenzaprine 10 mg PO TID PRN #20 tablet 09/30/20 [Rx Last Taken Unknown] cephalexin 500 mg PO Q8 #14 capsule 11/05/20 [Rx Last Taken Unknown] hydrocodone-acetaminophen 5-325mg 5mg-325mg tablet PO 11/08/20 [History Last Taken Unknown] lorazepam 0.5 mg tablet 0.5 mg PO DAILY PRN tablet 11/08/20 [History Last Taken Unknown] tramadol 50 mg tablet 50 mg PO Q8H PRN #30 tablet 11/18/20 [Rx Last Taken Unknown] hydrocodone-acetaminophen 5-325mg 5mg-325mg 1 tablet PO Q4H PRN #30 tablet 11/22/20 [Rx Last Taken Unknown] dicyclomine 20 mg PO BID PRN #14 tab 02/02/21 [Rx Last Taken Unknown] hydrocodone-acetaminophen 1 tab PO Q6H PRN 3 Days #10 tab 02/02/21 [Rx Last Taken Unknown] ondansetron 4 mg PO Q8H PRN #10 tab 02/02/21 [Rx Last Taken Unknown] pantoprazole [Protonix] 40 mg PO DAILY #14 tab 02/02/21 [Rx Last Taken Unknown] Allergy/AdvReac Type Severity Reaction Status Date / Time vancomycin Allergy Severe Anaphylaxis Verified 11/08/20 11:21 Family History Mother Diabetes Hypertension Father Hypertension Grandmother Diabetes Surgical History History of appendectomy History of back surgery History of tubal ligation S/P ERCP S/P laparoscopic cholecystectomy Social History household members: children and other details: fiance number of children: 3 Smoking Status: Never smoker alcohol intake: never substance use type: does not use do you feel safe at home: Yes additional social history: DOES NOT USE ASPIRIN DOES USE IBUPROFEN ROS ROS ED Constitutional Constitutional ED: Denies chills or fever(s) Eyes Eyes: Denies change in vision ENT ENT ED: Denies sore throat Cardiovascular Cardiovascular: Denies chest pain Respiratory/Chest Respiratory/Chest: Denies cough or dyspnea Gastrointestinal Gastrointestinal: Reports abdominal pain, diarrhea, nausea and vomiting Genitourinary Genitourinary ED: Denies dysuria Musculoskeletal Musculoskeletal: Denies back pain Integumentary Denies rash Neurologic Neurologic: Denies headache(s) or weakness Psychiatric Psychiatric: Denies anxiety or depression Endocrine Endocrinology: Denies polydipsia or polyuria Allergic/Immunologic Allergic/Immunologic ED: Denies urticaria EXAM Physical Exam Const Vital Signs: 02/02/21 15:48 02/02/21 18:31 Temperature 98.0 F Temperature Source Temporal Pulse Rate 65 65 Respiratory Rate 16 18 Blood Pressure 115/71 120/82 H Blood Pressure Mean 85 94 Pulse Ox 99 98 Oxygen Delivery Method Room Air Room Air Positive well nourished and well developed General Appearance ED: well developed HEENT Reports normocephalic and head/scalp atraumatic Eyes PERRL and EOMs intact bilaterally Neck supple Chest Wall inspection of chest normal and palpation of chest normal Resp normal respiratory effort and clear to auscultation bilaterally Cardio regular rate and regular rhythm GI Palpation: soft and tender epigastric; Negative for guarding or rebound tenderness present Extremity normal to inspection Neuro oriented x3 and no sensory deficits noted Sensorium / Orientation: alert Motor Exam: strength 5/5 throughout Psych mental status grossly normal Skin no rashes or lesions noted MDM MDM MDM Narrative Medical decision making narrative: Patient was given morphine, Zofran, Protonix, IV fluids. Labs are obtained. Lab Data Labs: Laboratory Results - last 24 hr 02/02/21 02/02/21 02/02/21 16:04 16:04 16:04 WBC 13.3 H RBC 4.72 Hgb 13.8 Hct 42.7 MCV 90.5 MCH 29.2 MCHC 32.3 RDW Std Deviation 40.4 RDW Coeff of Kell 12.2 Plt Count 289 MPV 10.6 Immature Gran % (Auto) 0.800 Neut % (Auto) 86.6 H Lymph % (Auto) 7.5 L [place] % (Auto) 4.7 Eos % (Auto) 0.2 Baso % (Auto) 0.2 Absolute Neuts (auto) 11.5 H Absolute Lymphs (auto) 0.99 Nucleated RBC % 0 Sodium 139 Potassium 3.8 Chloride 107 Carbon Dioxide 24.0 Anion Gap 8 BUN 11 Creatinine 0.86 Estim Creat Clear Calc 95.55 Est GFR (MDRD) Af Amer 102 Est GFR (MDRD) Non-Af 84 BUN/Creatinine Ratio 12.9 Glucose 95 Calcium 9.2 Total Bilirubin 0.20 Direct Bilirubin 0.09 AST 22 ALT 24 Alkaline Phosphatase 79 Total Protein 8.8 H Albumin 4.3 Globulin 4.5 H Lipase 100 Serum , Qual NEGATIVE Treatment and Re-Evaluation Comments:: On repeat evaluation patient had continued pain. She states pain had gotten better but then returned. She is given a second dose of morphine along with a dose of Bentyl. On repeat exam she still complains of sharp stabbing pain in her epigastrium. She is given a GI cocktail. Lab work is largely unremarkable. White count is elevated likely secondary to demargination from vomiting. Differential is unremarkable. LFTs and lipase are normal. At this time patient is lying in bed comfortably. She states she is still having sharp pain in her epigastric area. She will be treated with analgesics, Bentyl, Protonix at home. Discharge Plan Triage Chief Complaint: Abd Pain ED Provider: Domonique Arana Dx/Rx/DC Orders Clinical Impression: Acute epigastric pain Instructions: ED Epigastric Pain Uncertain Cause Prescriptions: New pantoprazole [Protonix] 40 mg tablet,delayed release (DR/EC) 40 mg PO DAILY Qty: 14 RF: 0 hydrocodone-acetaminophen 5-325 mg tablet 1 tab PO Q6H PRN (Reason: pain) 3 Days Qty: 10 RF: 0 ondansetron 4 mg tablet,disintegrating 4 mg PO Q8H PRN (Reason: nausea and vomiting) Qty: 10 RF: 0 dicyclomine 20 mg tablet 20 mg PO BID PRN (Reason: abdominal pain) Qty: 14 RF: 0 No Action lorazepam 0.5 mg tablet 0.5 mg PO DAILY PRNRF: 0 hydrocodone-acetaminophen 5-325 mg tablet PO RF: 0 tramadol 50 mg tablet 50 mg PO Q8H PRN (Reason: Fracture distal phalanx) Qty: 30 RF: 0 fluoxetine 20 MG capsule 20 mg PO DAILY RF: 0 cyclobenzaprine 10 MG tablet 10 mg PO TID PRN (Reason: Muscle Spasm) Qty: 20 RF: 0 cephalexin 500 MG capsule 500 mg PO Q8 Qty: 14 RF: 0 hydrocodone-acetaminophen 5-325 mg tablet 1 tablet PO Q4H PRN (Reason: pain) Qty: 30 RF: 0 Primary Care Provider: Dario Poe Referrals: Dario Poe DO [Primary Care Provider] - 3-5 Days if not improving Disposition Disposition: Home, Self Care
[2021-02-02] MEDS: 0.9% Normal Saline 1,000 ML 1000 ML IV (16:10)
[2021-02-02] MEDS: Morphine 4 MG/ML Syringe IV ×2 (16:10→17:39)
[2021-02-02] MEDS: Ondansetron 4 MG/2 ML Vial IV (16:10)
[2021-02-02 16:16] LABS: Absolute Lymphocyte Count 0.99 X10^3/uL (0.83-4.51); Absolute Neutrophil Count 11.5 X10^3/uL (2.0-7.7); Basophil# 0.03 X10^3/uL; Basophil% 0.2 % (0-1); Eosinophil# 0.03 X10^3/uL; Eosinophils% 0.2 % (0-5); Hematocrit 42.7 % (37-47); Hemoglobin 13.8 g/dL (12.0-15.0); Lymphocyte # 0.99 X10^3/ul (0.83-4.51); Lymphocyte % 7.5 % (19-41); Mean Corp Hgb Conc 32.3 g/dL (32-36); Mean Corpuscular Hgb 29.2 pg (27.0-32.0); Mean Corpuscular Volume 90.5 fL (81-99); Mean Platelet Vol. 10.6 fl (6.2-12.0); Monocyte# 0.63 X10^3/uL; Monocyte% 4.7 % (0-10); NRBC Flagged by Analyzer 0 % (0-5); Neutrophil % 86.6 % (47-70); Platelet Count 289 K/mm3 (150-450); RBC Distribution Width CV 12.2 % (11.6-14.6); RBC Distribution Width SD 40.4 fl (35.1-43.9); Red Blood Count 4.72 M/mm3 (4.2-5.4); White Blood Count 13.3 K/mm3 (4.4-11.0)
[2021-02-02 16:33] LABS: Internal QC Validated? YES +Cl - CLEAR BKGD; Pregnancy, Serum, hCG Quali. NEGATIVE Negative
[2021-02-02 16:35] LABS: AST(SGOT) 22 U/L (15-37); Alanine Aminotransfer ALT/SGPT 24 U/L (13-56); Albumin, Serum 4.3 g/dL (3.2-5.0); Alkaline Phosphatase 79 U/L (45-117); Anion Gap 8 (5-15); BUN 11 mg/dL (7-18); BUN/Creat Ratio 12.9 RATIO (10-20); Bilirubin, Direct 0.09 mg/dL (0.00-0.30); Calcium,Total 9.2 mg/dL (8.5-10.1); Chloride 107 mmol/L (98-107); Creatinine, Serum 0.86 mg/dL (0.55-1.02); EST Glomerular Filtration Rate 84 mL/min (>60); Est Glom Filt Rate - Afr Amer 102 mL/min (>60); Estimated Creatinine Clearance 95.55 ml/min; Globulin 4.5 g/dL (2.2-4.2); Glucose 95 mg/dL (74-106); Lipase 100 U/L (73-393); Potassium 3.8 mmol/L (3.5-5.1); Protein, Total 8.8 g/dL (6.4-8.2); Sodium Level 139 mmol/L (136-145)
[2021-02-02] MEDS: 0.9% Normal Saline 1,000 ML 150 ML IV (17:38)
[2021-02-02] MEDS: Dicyclomine 10 MG Capsule 20 MG PO (17:39)
[2021-02-02] MEDS: Mag Hydrox/Al Hydrox/Simeth 30 ML UDC PO (18:29)
[2021-02-02 18:31] VITALS: BP 120/82; PULSE 65; RESP 18; O2SAT 98
[2021-02-02 20:55] VITALS: BP 92/52; PULSE 56; RESP 18
== END 2021-02-02 20:55 | disposition home or self-care (01) ==
PROVIDERS: Emergency Provider Emergency Medicine; PCP Student in an Organized Health Care Education/Training Program
DX: R10.13 Epigastric pain (principal)
CPT/HCPCS: 80048; 80076; 83690; 84703; 85025; 96365; 96375; 96376; 99282; J7030; A4216; J2405

== ENCOUNTER 2021-03-08 09:51 | Emergency (ER) | payer OTHER, MEDICAID, SELFPAY ==
[2021-03-08 09:51] VITALS: BP 122/80; PULSE 70; RESP 15; TEMP 36.3; BMI 35.5
--- NOTE | 2021-03-08 10:14 | EDS_ITS ---
HPI History of Present Illness Chief Complaint: Dental Detail of Chief Complaint: Dental pain and migraine Informant: patient Onset/Context/Timing Onset: Days Context: Gradual Onset Current Severity: Moderate Maximum Severity: Moderate Narrative Narrative: Patient presents with dental pain and migraine. She states a tooth on the right upper surface broke off a couple days ago. She had a sharp edge to the tooth and she actually suffered a laceration to the buccal surface. She reports increased pain to this area. She called her dentist but cannot be seen until late March. She also complains of migraine that started yesterday. She does report light sensitivity, nausea, and vomiting. [facility] Medical History Anxiety and depression Back problem Gallstones Kidney stones Home Medications fluoxetine 40 mg PO DAILY 04/01/20 [History Last Taken Unknown] lorazepam 0.5 mg tablet 0.5 mg PO DAILY PRN tablet 11/08/20 [History Last Taken Unknown] penicillin V potassium 500 mg PO 4X/DAY #40 tab 03/08/21 [Rx Last Taken Unknown] Allergy/AdvReac Type Severity Reaction Status Date / Time vancomycin Allergy Severe Anaphylaxis Verified 03/08/21 09:52 Family History Mother Diabetes Hypertension Father Hypertension Grandmother Diabetes Surgical History History of appendectomy History of back surgery History of tubal ligation S/P ERCP S/P laparoscopic cholecystectomy Social History household members: children and other details: fiance number of children: 3 Smoking Status: Never smoker alcohol intake: never substance use type: does not use do you feel safe at home: Yes additional social history: DOES NOT USE ASPIRIN DOES USE IBUPROFEN ROS ROS ED Constitutional Constitutional ED: Denies chills or fever(s) Eyes Eyes: Reports other Details: Light sensitive ; Denies change in vision ENT ENT ED: Reports ear pain right; Denies sore throat Cardiovascular Cardiovascular: Denies chest pain Respiratory/Chest Respiratory/Chest: Denies cough or dyspnea Gastrointestinal Gastrointestinal: Reports nausea and vomiting; Denies abdominal pain or diarrhea Genitourinary Genitourinary ED: Denies dysuria Musculoskeletal Musculoskeletal: Denies back pain Integumentary Denies rash Neurologic Neurologic: Reports headache(s); Denies weakness Psychiatric Psychiatric: Denies anxiety or depression Endocrine Endocrinology: Denies polydipsia or polyuria Allergic/Immunologic Allergic/Immunologic ED: Denies urticaria EXAM Physical Exam Const Vital Signs: 03/08/21 09:51 03/08/21 10:43 Temperature 97.4 F L 97.4 F L Temperature Source Temporal Temporal Pulse Rate 70 70 Respiratory Rate 15 15 Blood Pressure 122/80 H 122/80 H Blood Pressure Mean 94 94 Positive well nourished and well developed General Appearance ED: well developed HEENT Reports normocephalic, head/scalp atraumatic and TM's clear HEENT Narrative: Right maxillary third molar with broken surface. Mild tenderness. No significant gum edema. Laceration measuring approximate 3 cm noted on the buccal surface adjacent to this. Mild surrounding edema. No fluctuance or evidence of abscess. Posterior pharynx examination unremarkable. No evidence of Zofia's angina. Tympanic Membrane ED: Yes TM's clear right Eyes PERRL and EOMs intact bilaterally Neck supple Chest Wall inspection of chest normal and palpation of chest normal Resp normal respiratory effort and clear to auscultation bilaterally Cardio regular rate and regular rhythm GI normal to inspection, nondistended, normoactive bowel sounds Palpation: soft Back/Spine no CVA tenderness Extremity normal to inspection Neuro oriented x3 and no sensory deficits noted Sensorium / Orientation: alert Motor Exam: strength 5/5 throughout Psych mental status grossly normal MDM MDM MDM Narrative Medical decision making narrative: Patient was given Toradol, Reglan, Benadryl, and IV fluids for her migraine. Treatment and Re-Evaluation Comments:: On repeat evaluation patient sleeping comfortably. She is easily awoken. Headache is significantly improved. We will treat her with Pen-Vee K for her dental pain and infection. She is to call her dentist to see if she can get her appointment moved up. Discharge Plan Triage Chief Complaint: Dental ED Provider: Domonique Arana Dx/Rx/DC Orders Clinical Impression: Migraine, Odontalgia Instructions: ED Dental Pain, ED, Migraine (Classical) Prescriptions: New penicillin V potassium 250 MG tablet 500 mg PO 4X/DAY Qty: 40 RF: 0 No Action lorazepam 0.5 mg tablet 0.5 mg PO DAILY PRN (Reason: Anxiety) RF: 0 fluoxetine 20 MG capsule 40 mg PO DAILY RF: 0 Primary Care Provider: Dario Poe Referrals: Dario Poe DO [Primary Care Provider] - Activity Restrictions/Additional Instructions: Follow-up with your dentist as soon as possible. Disposition Disposition: Home, Self Care
[2021-03-08 10:43] VITALS: BP 122/80; PULSE 70; RESP 15; TEMP 36.3
[2021-03-08] MEDS: 0.9% Normal Saline 1,000 ML 999 ML IV (11:03)
[2021-03-08] MEDS: Ketorolac 30 MG/ML Syringe IV (11:04)
[2021-03-08] MEDS: DiphenhydrAMINE 50 MG/ML Syringe 25 MG IV (11:04)
[2021-03-08] MEDS: Metoclopramide 10 MG/2 ML Vial IV (11:04)
[2021-03-08] MEDS: Penicillin Vk 250 MG Tablet 500 MG PO (12:28)
[2021-03-08 12:33] VITALS: BP 135/78; PULSE 92; RESP 16; O2SAT 98
== END 2021-03-08 12:34 | disposition home or self-care (01) ==
PROVIDERS: Emergency Provider Emergency Medicine; PCP Student in an Organized Health Care Education/Training Program
DX: K08.89 Other specified disorders of teeth and supporting structures (principal); G43.909 Migraine, unspecified, not intractable, without status migrainosus
CPT/HCPCS: 96361; 96374; 96375; 99283; J7030; A4216

== ENCOUNTER 2021-04-10 14:37 | Emergency (ER) | payer OTHER, MEDICAID, SELFPAY ==
[2021-04-10 14:38] VITALS: BP 122/83; PULSE 75; RESP 17; TEMP 36.3; O2SAT 96; BMI 34.4
--- NOTE | 2021-04-10 15:38 | RAD_ITS ---
STUDY: X-RAY CHEST REASON FOR EXAM: Female, 26 years old. cough TECHNIQUE: Single AP portable view of the chest. COMPARISON: August 07, 2019 FINDINGS: Stable spinal rods and screws throughout the thoracic region. The lungs are clear and expanded. There is no demonstrated pleural abnormality. Normal size heart. Normal mediastinum and yissel. Normal visualized pulmonary arteries. Normal visualized aortic arch and descending thoracic aorta. Stable remaining osseous structures. There is no demonstrated abnormality of the visualized soft tissue structures of the upper abdomen. RAD/Chest 1 View (Portable) IMPRESSION: Normal x-ray examination of the chest. Electronically Signed: Melchor Del Cid MD at 17:22 EDT , Service support ,
[2021-04-10] MEDS: Metoclopramide 10 MG/2 ML Vial IV (16:02)
[2021-04-10] MEDS: 0.9% Normal Saline 1,000 ML 999 ML IV (16:02)
[2021-04-10] MEDS: Ketorolac 15 MG/ML Vial IV (16:03)
[2021-04-10] MEDS: DiphenhydrAMINE 50 MG/ML Syringe 25 MG IV (16:04)
--- NOTE | 2021-04-10 16:21 | EDS_ITS ---
HPI History of Present Illness Chief Complaint: Shortness of Breath Narrative Narrative: Presents for persistent headache starting 3 days ago. States has sore throat chills myalgias with cough. No fevers. No loss of taste or smell. Reported did have some diarrhea. 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 She followed up with [employer] yesterday reported had a rapid Covid testing negative. Migraine symptoms over the past few months. [facility] Medical History Anxiety and depression Back problem Gallstones Kidney stones Home Medications fluoxetine 40 mg PO DAILY 04/01/20 [History Last Taken Unknown] lorazepam 0.5 mg tablet 0.5 mg PO DAILY PRN tablet 11/08/20 [History Last Taken Unknown] penicillin V potassium 500 mg PO 4X/DAY #40 tab 03/08/21 [Rx Last Taken Unknown] Allergy/AdvReac Type Severity Reaction Status Date / Time vancomycin Allergy Severe Anaphylaxis Verified 04/10/21 14:37 Family History Mother Diabetes Hypertension Father Hypertension Grandmother Diabetes Surgical History History of appendectomy History of back surgery History of tubal ligation S/P ERCP S/P laparoscopic cholecystectomy Social History household members: children and other details: fiance number of children: 3 Smoking Status: Never smoker alcohol intake: never substance use type: does not use do you feel safe at home: Yes additional social history: DOES NOT USE ASPIRIN DOES USE IBUPROFEN ROS ROS ED Constitutional Constitutional ED: Reports chills; Denies fever(s) or sweats Eyes Eyes: Denies change in vision ENT ENT ED: Denies dysphagia or sore throat Cardiovascular Cardiovascular: Denies chest pain, leg edema, palpitations or racing heartbeat Respiratory/Chest Respiratory/Chest: Reports cough; Denies dyspnea or dyspnea on exertion Gastrointestinal Gastrointestinal: Reports diarrhea and nausea; Denies abdominal pain or vomiting Genitourinary Genitourinary ED: Denies dysuria, hematuria or urinary frequency Musculoskeletal Musculoskeletal: Denies back pain, extremity pain or neck pain Integumentary Denies rash or wounds Neurologic Neurologic: Reports headache(s); Denies paresthesias or weakness EXAM Physical Exam Const Vital Signs: 04/10/21 14:38 04/10/21 17:08 Temperature 97.4 F L Temperature Source Temporal Pulse Rate 75 59 L Respiratory Rate 17 14 Blood Pressure 122/83 H Blood Pressure Mean 96 Pulse Ox 96 97 Oxygen Delivery Method Room Air Room Air Positive well nourished and well developed General Appearance ED: well developed and NAD HEENT Reports moist mucous membranes normocephalic and atraumatic Eyes PERRL, EOMs intact bilaterally and conjunctivae normal General Eye ED: Yes normal appearance of both eyes Neck no lymphadenopathy and supple Neck Narrative: No meningismus. General: Negative for tenderness Chest Wall Chest: Negative for tenderness Resp normal respiratory effort and normal air movement Effort and Inspection: symmetric chest movement; Negative for respiratory distress Cardio regular rate, regular rhythm and no murmurs Peripheral Pulses: pulses 2+ throughout GI normal to inspection, nondistended, normoactive bowel sounds and non-tender Palpation: Negative for guarding or rebound tenderness present Back/Spine no CVA tenderness and no thoracic nor lumbar tenderness Extremity normal to inspection General Extremety ED: Negative for edema or tenderness General Extremity: Negative for edema Neuro oriented x3 and no sensory deficits noted Sensorium / Orientation: awake and alert Skin no rashes or lesions noted and no wounds MDM MDM MDM Narrative Medical decision making narrative: Patient nontoxic vital signs stable. Given IV fluids and migraine cocktail with improvement of symptoms. Chest x-ray was negative. Rapid Covid obtained negative. 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 Patient will remain isolation.. She will monitor for worsening symptoms to return. All questions were answered. Radiography Chest X-Ray - ED: 1 View, Read by ED Physician and Read by Radiologist Diagnostic Testing: Radiology Impression Chest X-Ray 04/10/21 15:38 IMPRESSION: Normal x-ray examination of the chest. Electronically Signed: Melchor Del Cid MD at 17:22 EDT , Service support , Discharge Plan Triage Chief Complaint: Shortness of Breath ED Provider: Nishant Marin Dx/Rx/DC Orders Clinical Impression: Viral URI with cough, Headache, Suspected COVID-19 virus infection Instructions: Coronavirus Disease 2019 (COVID-19): Overview, Understanding Headache Pain, ED URI, Viral, No Abx (Adult) Prescriptions: No Action lorazepam 0.5 mg tablet 0.5 mg PO DAILY PRN (Reason: Anxiety) RF: 0 fluoxetine 20 MG capsule 40 mg PO DAILY RF: 0 penicillin V potassium 250 MG tablet 500 mg PO 4X/DAY Qty: 40 RF: 0 Stand Alone Forms: ED Work / School Excuse Primary Care Provider: Dario Poe Referrals: Dario Poe DO [Primary Care Provider] - 1 Week Activity Restrictions/Additional Instructions: Covid PCR testing sent out and pending for concerning symptoms. Monitor symptoms Tylenol or Motrin as needed. Continue isolation. Return if any worsening respiratory symptoms. Disposition Disposition: Home, Self Care
[2021-04-10 17:08] VITALS: PULSE 59; RESP 14; O2SAT 97
[2021-04-10 18:13] VITALS: BP 101/66; PULSE 79; RESP 20; O2SAT 97
== END 2021-04-10 18:14 | disposition home or self-care (01) ==
PROVIDERS: Emergency Provider Emergency Medicine; PCP Student in an Organized Health Care Education/Training Program
DX: J06.9 Acute upper respiratory infection, unspecified (principal); R05 Cough; R51.9 Headache, unspecified; Z20.822 Contact with and (suspected) exposure to COVID-19
CPT/HCPCS: 71045; 87426; 87635; 96361; 96374; 96375; 99285; J7030; A4216; U0003

== ENCOUNTER → 2021-07-19 09:59 | Emergency (ER) | payer OTHER, MEDICAID, SELFPAY ==
[2021-07-19 10:00] VITALS: BP 131/92; PULSE 87; RESP 18; TEMP 36.3; O2SAT 99; BMI 32.1
--- NOTE | 2021-07-19 10:55 | EX.ED.VIS.HA ---
HPI History of Present Illness Chief Complaint: Headache Narrative Narrative: 26-year-old female with history of migraine headaches presenting with left-sided headache. She states it is painful in her left latter day which radiates into her jaw. She denies any trauma. She states this is not typical of her pneumonias. She has not had a fever. Patient has no visual complaints. She also admits to some nasal congestion and a mild cough. She does not feel like she is short of breath. PFSH PFSH Medical History Anxiety and depression Back problem Gallstones Kidney stones Home Medications fluoxetine 60 mg PO DAILY 04/01/20 [History Last Taken Unknown] lorazepam 0.5 mg tablet 0.5 mg PO DAILY PRN tablet 11/08/20 [History Last Taken Unknown] penicillin V potassium 500 mg PO 4X/DAY #40 tab 03/08/21 [Rx Last Taken Unknown] prednisone 50 mg PO QODAY #14 tab 07/19/21 [Rx Last Taken Unknown] Allergy/AdvReac Type Severity Reaction Status Date / Time vancomycin Allergy Severe Anaphylaxis Verified 07/19/21 10:02 Family History Mother Diabetes Hypertension Father Hypertension Grandmother Diabetes Surgical History History of appendectomy History of back surgery History of tubal ligation S/P ERCP S/P laparoscopic cholecystectomy Social History household members: children and other details: fiance number of children: 3 Smoking Status: Never smoker alcohol intake: never substance use type: does not use do you feel safe at home: Yes additional social history: DOES NOT USE ASPIRIN DOES USE IBUPROFEN ROS ROS ED Constitutional Constitutional ED: Denies chills or fever(s) Eyes Eyes: Denies blurry vision or change in vision ENT ENT ED: Reports rhinorrhea Cardiovascular Cardiovascular: Denies chest pain or palpitations Respiratory/Chest Respiratory/Chest: Reports cough; Denies dyspnea, dyspnea on exertion or sputum Gastrointestinal Gastrointestinal: Denies abdominal pain, nausea or vomiting Genitourinary Genitourinary ED: Denies dysuria or hematuria Musculoskeletal Musculoskeletal: Denies arthralgias or myalgias Integumentary Denies Abrasions or rash Neurologic Neurologic: Reports headache(s); Denies paresthesias or weakness Psychiatric Psychiatric: Denies anxiety or depression EXAM Physical Exam Const Vital Signs: 07/19/21 10:00 Temperature 97.3 F L Temperature Source Temporal Pulse Rate 87 Respiratory Rate 18 Blood Pressure 131/92 H Blood Pressure Mean 105 Pulse Ox 99 Oxygen Delivery Method Room Air Positive well nourished General Appearance ED: NAD; Negative for cyanotic, diaphoretic or pallor HEENT Reports normocephalic and moist mucous membranes HEENT Narrative: Tenderness to palpation over the left latter day. No obvious cellulitic changes. No skull deformity or bony tenderness. atraumatic Eyes PERRL and EOMs intact bilaterally General Eye ED: Negative for pale conjunctiva or scleral icterus Resp normal respiratory effort Effort and Inspection: able to speak in complete sentences Cardio regular rate and regular rhythm Neuro CN's II-XII intact bilaterally Sensorium / Orientation: awake and alert Skin General Skin Exam: Negative for jaundice or pallor Rashes: no rashes MDM MDM MDM Narrative Medical decision making narrative: Patient presenting with nasal congestion and a slight cough. She states that her left latter day is also hurting as well. I did obtain blood work and she does not have a elevated white blood cell count. Hemoglobin medic are stable. Renal function electrolytes are normal. LFTs are normal. Patient does have an elevated CRP at 42.10 as well as a ESR of 59. Patient's initial rapid Covid is negative. I will order a Covid PCR to ensure that she does not have Covid 19 as this would falsely elevate the inflammatory markers. This again will help her with follow-up if she test negative. I will put her on high-dose prednisone and presume she has temporal arteritis at this time. She is given follow-up with Dr. Lomax and return precautions. Impression: 1. Temporal arteritis 2. Viral syndrome Lab Data Attestation: I reviewed the patient's lab results. Labs: Laboratory Results - last 24 hr 07/19/21 07/19/21 11:10 11:10 WBC 10.8 RBC 4.41 Hgb 12.7 Hct 39.1 MCV 88.7 MCH 28.8 MCHC 32.5 RDW Std Deviation 41.6 RDW Coeff of Kell 12.7 Plt Count 226 MPV 10.3 Immature Gran % (Auto) 0.600 Neut % (Auto) 78.0 H Lymph % (Auto) 13.2 L [place] % (Auto) 6.9 Eos % (Auto) 1.1 Baso % (Auto) 0.2 Absolute Neuts (auto) 8.4 H Absolute Lymphs (auto) 1.43 Nucleated RBC % 0 ESR 59 H Sodium 137 Potassium 3.7 Chloride 103 Carbon Dioxide 27.0 Anion Gap 7 BUN 9 Creatinine 0.67 Estim Creat Clear Calc 121.57 Est GFR (MDRD) Af Amer 135 Est GFR (MDRD) Non-Af 112 BUN/Creatinine Ratio 13.5 Glucose 79 Calcium 9.2 Total Bilirubin 0.30 AST 19 ALT 23 Alkaline Phosphatase 83 C-React Prot Ext Range 42.10 H Total Protein 8.3 H Albumin 3.7 Globulin 4.6 H Albumin/Globulin Ratio 0.8 L Discharge Plan Triage Chief Complaint: Headache Other Complaint: Dental ED Provider: Rios Massey Dx/Rx/DC Orders Instructions: ED Temporal Arteritis, ED Viral Syndrome (Adult) Prescriptions: New prednisone 50 mg tablet 50 mg PO QODAY Qty: 14 RF: 0 No Action lorazepam 0.5 mg tablet 0.5 mg PO DAILY PRN (Reason: Anxiety) RF: 0 fluoxetine 20 MG capsule 60 mg PO DAILY RF: 0 penicillin V potassium 250 MG tablet 500 mg PO 4X/DAY Qty: 40 RF: 0 Primary Care Provider: Dario Poe Referrals: Dario Poe DO [Primary Care Provider] - Benito Downs MD [STAFF PHYSICIAN] - As soon as possible Disposition Disposition: Home, Self Care
[2021-07-19 11:23] LABS: Absolute Lymphocyte Count 1.43 X10^3/uL (0.83-4.51); Absolute Neutrophil Count 8.4 X10^3/uL (2.0-7.7); Basophil# 0.02 X10^3/uL; Basophil% 0.2 % (0-1); Eosinophil# 0.12 X10^3/uL; Eosinophils% 1.1 % (0-5); Hematocrit 39.1 % (37-47); Hemoglobin 12.7 g/dL (12.0-15.0); Lymphocyte # 1.43 X10^3/ul (0.83-4.51); Lymphocyte % 13.2 % (19-41); Mean Corp Hgb Conc 32.5 g/dL (32-36); Mean Corpuscular Hgb 28.8 pg (27.0-32.0); Mean Corpuscular Volume 88.7 fL (81-99); Mean Platelet Vol. 10.3 fl (6.2-12.0); Monocyte# 0.75 X10^3/uL; Monocyte% 6.9 % (0-10); NRBC Flagged by Analyzer 0 % (0-5); Neutrophil # 8.41 X10^3/uL (2.7-7.7); Platelet Count 226 K/mm3 (150-450); RBC Distribution Width CV 12.7 % (11.6-14.6); RBC Distribution Width SD 41.6 fl (35.1-43.9); Red Blood Count 4.41 M/mm3 (4.2-5.4); White Blood Count 10.8 K/mm3 (4.4-11.0)
[2021-07-19] MEDS: DiphenhydrAMINE 50 MG/ML Syringe 25 MG IV (11:23)
[2021-07-19] MEDS: Metoclopramide 10 MG/2 ML Vial IV (11:23)
[2021-07-19 11:31] LABS: Erythrocyte Sedimentation Rate 59 mm/hr (0-30)
[2021-07-19 11:37] LABS: ALB/GLOB Ratio 0.8 RATIO (0.9-2.4); AST(SGOT) 19 U/L (15-37); Alanine Aminotransfer ALT/SGPT 23 U/L (13-56); Albumin, Serum 3.7 g/dL (3.2-5.0); Alkaline Phosphatase 83 U/L (45-117); Anion Gap 7 (5-15); BUN 9 mg/dL (7-18); BUN/Creat Ratio 13.5 RATIO (10-20); Calcium,Total 9.2 mg/dL (8.5-10.1); Chloride 103 mmol/L (98-107); Creatinine, Serum 0.67 mg/dL (0.55-1.02); EST Glomerular Filtration Rate 112 mL/min (>60); Est Glom Filt Rate - Afr Amer 135 mL/min (>60); Estimated Creatinine Clearance 121.57 ml/min; Globulin 4.6 g/dL (2.2-4.2); Glucose 79 mg/dL (74-106); Potassium 3.7 mmol/L (3.5-5.1); Protein, Total 8.3 g/dL (6.4-8.2); Sodium Level 137 mmol/L (136-145)
[2021-07-19] MEDS: MethylPREDNISolone 125 MG/2 ML Vial IV (12:31)
[2021-07-19 13:41] VITALS: PULSE 78; RESP 15; O2SAT 96
== END | disposition home or self-care (01) ==
PROVIDERS: Emergency Provider Student in an Organized Health Care Education/Training Program; PCP Student in an Organized Health Care Education/Training Program
DX: M31.6 Other giant cell arteritis (principal); B34.9 Viral infection, unspecified; F32.A Depression, unspecified; F41.9 Anxiety disorder, unspecified; Z79.899 Other long term (current) drug therapy
CPT/HCPCS: 80053; 85025; 85652; 86140; 87426; 87635; 96361; 96374; 96375; 99283; J7030; U0005; A4216; U0003

== ENCOUNTER 2021-10-28 23:32 | Emergency (ER) | payer MEDICAID, SELFPAY ==
[2021-10-28 23:33] VITALS: BP 119/81; PULSE 74; RESP 18; TEMP 36.6; O2SAT 96; BMI 34.4
--- NOTE | 2021-10-29 00:21 | EX.ED.DYSGE1 ---
HPI History of Present Illness Chief Complaint: Nausea/Vomiting Informant: patient Narrative Narrative: Patient presents with nausea vomiting and to mild soft stools this morning. She started with a slight runny nose and rare nonproductive cough last night. No myalgias. No fevers. Her daughter has the same symptoms. She has 2 sons who are evidently starting with symptoms. No real abdominal pain. She has had gallbladder and appendectomy done. Nothing really makes symptoms better or worse. [facility] Medical History Anxiety and depression Back problem Gallstones Kidney stones Home Medications fluoxetine 60 mg PO DAILY 04/01/20 [History Last Taken Unknown] lorazepam 0.5 mg tablet 0.5 mg PO DAILY PRN tablet 11/08/20 [History Last Taken Unknown] penicillin V potassium 500 mg PO 4X/DAY #40 tab 03/08/21 [Rx Last Taken Unknown] prednisone 50 mg PO QODAY #14 tab 07/19/21 [Rx Last Taken Unknown] Allergy/AdvReac Type Severity Reaction Status Date / Time vancomycin Allergy Severe Anaphylaxis Verified 10/28/21 23:34 Family History Mother Diabetes Hypertension Father Hypertension Grandmother Diabetes Surgical History History of appendectomy History of back surgery History of tubal ligation S/P ERCP S/P laparoscopic cholecystectomy Social History household members: children and other details: fiance number of children: 3 Smoking Status: Never smoker alcohol intake: never substance use type: does not use do you feel safe at home: Yes additional social history: DOES NOT USE ASPIRIN DOES USE IBUPROFEN ROS ROS ED Constitutional Constitutional ED: Denies chills or fever(s) ENT ENT ED: Reports rhinorrhea; Denies sore throat Cardiovascular Cardiovascular: Denies chest pain or palpitations Respiratory/Chest Respiratory/Chest: Reports cough; Denies dyspnea or sputum Gastrointestinal Gastrointestinal: Reports diarrhea, nausea and vomiting; Denies abdominal pain, constipation or melena Genitourinary Genitourinary ED: Denies dysuria, hematuria or urinary frequency Musculoskeletal Musculoskeletal: Denies myalgias Integumentary Denies rash Neurologic Neurologic: Denies headache(s) Psychiatric Psychiatric: Denies depression Endocrine Endocrinology: Denies polydipsia or polyuria Allergic/Immunologic Allergic/Immunologic ED: Denies urticaria EXAM Physical Exam Const Vital Signs: 10/28/21 23:33 Temperature 97.8 F Temperature Source Temporal Pulse Rate 74 Respiratory Rate 18 Blood Pressure 119/81 H Blood Pressure Mean 93 Pulse Ox 96 Oxygen Delivery Method Room Air Positive well nourished and well developed Constitutional Narrative: Patient is nontoxic in appearance. General Appearance ED: well developed and NAD; Negative for cyanotic or diaphoretic HEENT Reports moist mucous membranes Eyes General Eye ED: Negative for pale conjunctiva or scleral icterus Neck no lymphadenopathy and supple Chest Wall inspection of chest normal Resp normal respiratory effort and clear to auscultation bilaterally Auscultation: Negative for rales, rhonchi or wheezes Cardio regular rate and regular rhythm GI normal to inspection, nondistended, normoactive bowel sounds, non-tender, non-distended and no masses Auscultation: normoactive bowel sounds Palpation: soft; Negative for tender or guarding Back/Spine no CVA tenderness Extremity normal to inspection Neuro Sensorium / Orientation: alert Psych mental status grossly normal Skin no rashes or lesions noted MDM MDM MDM Narrative Medical decision making narrative: Patient was given Zofran. Per nursing staff, she has not had any vomiting since. We were letting them rest because her daughter got Zofran and vomited shortly afterwards. We gave a second dose and we are seeing if she got better. This was a busy evening. There are still many people in the department. Before getting back in that evidently left the facility. Discharge Plan Triage Chief Complaint: Nausea/Vomiting ED Provider: Olu De Leon Dx/Rx/DC Orders Clinical Impression: Nausea vomiting and diarrhea Instructions: ED Vomiting (Adult) Prescriptions: No Action lorazepam 0.5 mg tablet 0.5 mg PO DAILY PRN (Reason: Anxiety) RF: 0 fluoxetine 20 MG capsule 60 mg PO DAILY RF: 0 penicillin V potassium 250 MG tablet 500 mg PO 4X/DAY Qty: 40 RF: 0 prednisone 50 mg tablet 50 mg PO QODAY Qty: 14 RF: 0 Primary Care Provider: Dario Poe Referrals: Dario Poe DO [Primary Care Provider] - Disposition Disposition: Elopement
[2021-10-29] MEDS: Ondansetron ODT 4 MG Tablet PO (00:23)
== END 2021-10-29 03:31 | disposition left against medical advice (07) ==
PROVIDERS: Emergency Provider Emergency Medicine; PCP Student in an Organized Health Care Education/Training Program; Visit Provider Emergency Medicine
DX: R11.2 Nausea with vomiting, unspecified (principal); R19.7 Diarrhea, unspecified; F32.A Depression, unspecified; F41.9 Anxiety disorder, unspecified; Z79.899 Other long term (current) drug therapy; Z87.442 Personal history of urinary calculi
CPT/HCPCS: 99283

== ENCOUNTER 2021-12-06 20:56 | Emergency (ER) | payer MEDICAID, SELFPAY ==
[2021-12-06 20:57] VITALS: BP 146/96; PULSE 77; RESP 15; TEMP 36.4; O2SAT 98; BMI 35.5
[2021-12-06 20:58] VITALS: BP 146/96; PULSE 77; RESP 15; TEMP 36.4; O2SAT 98
--- NOTE | 2021-12-06 22:11 | EDS_ITS ---
HPI History of Present Illness Chief Complaint: Dental Informant: patient Narrative Narrative: Patient arrives complaining of dental pain. This started about 2 weeks ago. She states several months ago she had a part of her tooth chipped off on the right upper posterior aspect. She had a little bit more of this chip a month ago. Couple weeks ago she started have some pain. She was seen at another emergency department and given clindamycin. She just finished that a couple days ago. She states the pain is coming back. She occasionally think she gets drainage of some purulence around that tooth because of a bad taste. No facial swelling. No trouble swallowing. No fevers chills or sweats. PFSH PFSH Medical History Anxiety and depression Back problem Gallstones Kidney stones Home Medications clindamycin HCl 12/06/21 [History Last Taken Unknown] hydrocodone-acetaminophen 1 tab PO Q6H PRN 3 Days #10 tab 12/06/21 [Rx Last Taken Unknown] naproxen 500 mg PO BID #14 tab 12/06/21 [Rx Last Taken Unknown] penicillin V potassium 500 mg PO 4X/DAY #40 tab 12/06/21 [Rx Last Taken Unknown] Allergy/AdvReac Type Severity Reaction Status Date / Time vancomycin Allergy Severe Anaphylaxis Verified 10/28/21 23:34 Family History Mother Diabetes Hypertension Father Hypertension Grandmother Diabetes Surgical History History of appendectomy History of back surgery History of tubal ligation S/P ERCP S/P laparoscopic cholecystectomy Social History household members: children and other details: fiance number of children: 3 Smoking Status: Never smoker alcohol intake: never substance use type: does not use do you feel safe at home: Yes additional social history: DOES NOT USE ASPIRIN DOES USE IBUPROFEN ROS ROS ED Constitutional Constitutional ED: Denies chills or fever(s) Eyes Eyes: Denies blurry vision ENT ENT ED: Reports other Details: See history of present illness ; Denies rhino rrhea Cardiovascular Cardiovascular: Denies chest pain or palpitations Respiratory/Chest Respiratory/Chest: Denies dyspnea Gastrointestinal Gastrointestinal: Denies nausea or vomiting Musculoskeletal Musculoskeletal: Denies neck pain Integumentary Denies rash Neurologic Neurologic: Denies headache(s) Hematologic/Lymphatic Hematologic/Lymphatic: Denies easy bleeding or easy bruising Allergic/Immunologic Allergic/Immunologic ED: Denies urticaria EXAM Physical Exam Const Vital Signs: 12/06/21 20:57 12/06/21 20:58 Temperature 97.6 F L 97.6 F L Temperature Source Temporal Temporal Pulse Rate 77 77 Respiratory Rate 15 15 Blood Pressure 146/96 H 146/96 H Blood Pressure Mean 112 112 Pulse Ox 98 98 Oxygen Delivery Method Room Air Room Air Positive well nourished and well developed General Appearance ED: well developed and NAD; Negative for pallor HEENT HEENT Narrative: No external facial changes. No erythema or swelling. No pain with opening or closing the jaw. She does have a right upper posterior molar portion of her tooth missing. There is some erythema medially. There is a little bit of swelling of the gums medially. But there is really nothing I can drain. Is about 1 cm around. Its not quite fluctuant but it is red and it is tender. Oropharynx is normal. Voice is normal. Handling of secretions is normal. Negative for trauma or tenderness Eyes PERRL and EOMs intact bilaterally Neck no lymphadenopathy and supple Lymph Lymphatic: no lymphadenopathy noted Resp normal respiratory effort Cardio regular rate and regular rhythm Neuro Sensorium / Orientation: alert Psych mental status grossly normal Skin no rashes or lesions noted General Skin Exam: Negative for pallor MDM MDM MDM Narrative Medical decision making narrative: This patient does have an appointment with a dentist but has not for about 1 month. 06 January. She just finished antibiotics. Plan will be to start her on penicillin. I will write for some meds for pains I think she has a real reason to have discomfort. Her last narcotic prescription was almost a year ago. I do not think she is seeking narcotics. I think she is seeking improvement in her condition. We discussed reasons to return. Discharge Plan Triage Chief Complaint: Dental ED Provider: Olu De Leon Dx/Rx/DC Orders Clinical Impression: Abscess, dental Instructions: Dental Abscess Prescriptions: New hydrocodone-acetaminophen 5-325 mg tablet 1 tab PO Q6H PRN (Reason: pain) 3 Days Qty: 10 RF: 0 penicillin V potassium 500 MG tablet 500 mg PO 4X/DAY Qty: 40 RF: 0 naproxen 500 MG tablet 500 mg PO BID Qty: 14 RF: 0 No Action clindamycin HCl 300 mg capsule RF: 0 Primary Care Provider: Dario Poe Referrals: Dario Poe DO [Primary Care Provider] - As Needed Disposition Disposition: Home, Self Care
[2021-12-06] MEDS: oxyCODONE 5 MG Tablet PO (22:21)
[2021-12-06] MEDS: Penicillin Vk 250 MG Tablet 500 MG PO (22:22)
== END 2021-12-06 22:28 | disposition home or self-care (01) ==
PROVIDERS: Emergency Provider Emergency Medicine; PCP Student in an Organized Health Care Education/Training Program; Visit Provider Emergency Medicine
DX: K04.7 Periapical abscess without sinus (principal)
CPT/HCPCS: 99283

== ENCOUNTER 2022-12-08 23:06 | Emergency (ER) | payer MEDICAID, SELFPAY ==
[2022-12-08 23:07] VITALS: BP 132/74; PULSE 106; RESP 16; TEMP 36.3; O2SAT 99; BMI 33.7
--- NOTE | 2022-12-08 23:42 | ED.VIS.GI ---
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 Today she has been vomiting and the pain has been worse. Vomiting has been nonbilious nonbloody, she has had 1 bout of diarrhea that was yesterday, none today. Prior abdominal surgeries, remote, include appendectomy and bilateral tubal ligation. [facility] Medical History Anxiety and depression Back problem Gallstones Kidney stones Home Medications alprazolam 0.25 mg tablet 0.25 mg PO BID PRN PRN Anxiety 12/08/22 [History Last Taken Unknown] fluoxetine 20 mg capsule (Prozac) 60 mg PO DAILY 12/08/22 [History Last Taken Unknown] ciprofloxacin HCl 500 mg tablet 500 mg PO BID #14 TABLETS 12/09/22 [Rx Last Taken Unknown] oxycodone-acetaminophen 5 mg-325 mg tablet 1 tab PO Q4H PRN Pain 3 days #15 TABLETS 12/09/22 [Rx Last Taken Unknown] promethazine 25 mg tablet 25 mg PO Q6H PRN PRN Nausea #10 TABLETS 12/09/22 [Rx Last Taken Unknown] Allergy/AdvReac Type Severity Reaction Status Date / Time vancomycin Allergy Severe Anaphylaxis Verified 12/08/22 23:09 Family History Mother Diabetes Hypertension Father Hypertension Grandmother Diabetes Surgical History History of appendectomy History of back surgery History of tubal ligation S/P ERCP S/P laparoscopic cholecystectomy Social History household members: children and other details: fiance number of children: 3 Smoking Status: Never smoker alcohol intake: never substance use type: does not use do you feel safe at home: Yes additional social history: DOES NOT USE ASPIRIN DOES USE IBUPROFEN ROS ROS ED Constitutional Constitutional ED: Denies chills or fever(s) Eyes Eyes: Denies change in vision or diplopia ENT ENT ED: Denies rhinorrhea or sore throat Cardiovascular Cardiovascular: Denies chest pain or palpitations Respiratory/Chest Respiratory/Chest: Denies cough or dyspnea Gastrointestinal Gastrointestinal: Reports abdominal pain, diarrhea, nausea and vomiting; Denies melena Genitourinary Genitourinary ED: Denies dysuria or hematuria Musculoskeletal Musculoskeletal: Denies back pain or neck pain Integumentary Denies abscess or rash Neurologic Neurologic: Denies headache(s), paresthesias or weakness Psychiatric Psychiatric: Denies anxiety or suicidal thoughts EXAM Physical Exam Const Vital Signs: 12/08/22 23:07 Temperature 97.4 F L Temperature Source Temporal Pulse Rate 106 H Respiratory Rate 16 Blood Pressure 132/74 H Blood Pressure Mean 93 Pulse Ox 99 Oxygen Delivery Method Room Air Positive well nourished and well developed General Appearance ED: well developed and NAD HEENT Reports moist mucous membranes normocephalic and atraumatic Eyes PERRL and EOMs intact bilaterally Neck full ROM and supple Resp normal respiratory effort and clear to auscultation bilaterally Cardio regular rate, regular rhythm and no murmurs GI non-distended GI Narrative: Very tender periumbilical area, umbilicus, and throughout lower abdomen. No guarding or rebound tenderness. Soft. Examined while standing, she does appear to have a palpable very tender hernia without erythema deep within the umbilicus, but no obvious ventral hernia bulge/hernia there or anywhere else. Auscultation: normoactive bowel sounds Palpation: soft Back/Spine no CVA tenderness General Back: other FROM Extremity normal to inspection General Extremety ED: Negative for edema, pulses abnormal or tenderness General Extremity: Negative for edema or pulses abnormal Neuro oriented x3, CN's II-XII intact bilaterally and no sensory deficits noted Sensorium / Orientation: awake and alert Motor Exam: strength 5/5 throughout Skin no rashes or lesions noted and no wounds MDM MDM MDM Narrative Medical decision making narrative: The patient's exam and symptoms, very suspicious for hernia. However it feels very small clinically. CT with oral and IV contrast obtained in addition to labs and urinalysis. The urinalysis appears infected although she does not have urinary symptoms. She does not have back pain or CVA tenderness, I reviewed the images of the CT and the radiologist's interpretation which I agree with, basically shows a small umbilical fat-containing hernia but does not contain bowel, so that is nonsurgical and supportive care only at this time, with follow-up. Also noted the mild nonspecific bilateral kidney/ureteral abnormalities and signs of cystitis radiographically. It is unclear how this is related to her pain, but since she is having significant pain in areas of her abdomen suprapubically, away from the small medical hernia, I think we should treat this, she is also a history of Pseudomonas infection. Therefore I am giving her a dose of IV Rocephin followed by a week of oral Cipro, and pain medication which we have treated here, requiring multiple doses of analgesics. She is however stable to go home. Urine culture sent. Lab Data Attestation: I reviewed the patient's lab results. Labs: Laboratory Results - last 24 hr 12/08/22 12/08/22 12/09/22 23:56 23:56 00:44 WBC 12.4 H RBC 5.07 Hgb 14.6 Hct 43.5 MCV 85.8 MCH 28.8 MCHC 33.6 RDW Std Deviation 39.2 RDW Coeff of Kell 12.7 Plt Count 249 MPV 11.1 Immature Gran % (Auto) 0.400 Neut % (Auto) 77.0 H Lymph % (Auto) 14.[address] [place] % (Auto) 7.4 Eos % (Auto) 0.4 Baso % (Auto) 0.3 Absolute Neuts (auto) 9.5 H Absolute Lymphs (auto) 1.79 Nucleated RBC % 0 Sodium 138 Potassium 3.6 Chloride 107 Carbon Dioxide 24.0 Anion Gap 7 BUN 7 Creatinine 0.76 Estim Creat Clear Calc 102.25 Est GFR (MDRD) Af Amer 115 Est GFR (MDRD) Non-Af 95 BUN/Creatinine Ratio 9.2 L Glucose 90 Calcium 9.4 Urine Color Yellow Urine Clarity Cloudy Urine pH 6.0 Ur Specific [place] 1.015 Urine Protein 500 H Urine Glucose (UA) Normal Urine Ketones 5 H Urine Occult Blood 250 H Urine Nitrite Positive H Urine Bilirubin Negative Urine Urobilinogen Normal Ur Leukocyte Esterase 500 H Urine RBC 0 SEEN Urine WBC >100 SEEN Ur Squamous Epith Cells 0 SEEN Urine Bacteria 3+ Urine Mucus 0 SEEN Radiography Diagnostic Testing: Clinical Impression(s) from Imaging Studies Abdomen/Pelvis CT 12/09/22 23:41 IMPRESSION: Similar-appearing gassy distended appearance of the transverse colon just deep to the umbilicus without evidence of inflammation or obstruction. Small fatty umbilical hernia. Mild intrahepatic ductal dilatation which is similar to prior study June 29, 2018. Status post cholecystectomy. Could consider follow-up study such as ultrasound if appropriate. Punctate stones both kidneys. Nonspecific mild enhancement of the wall of the bilateral renal pelvis. Potentially inflammatory change or uteritis could have this appearance in the appropriate setting. There is mild wall thickening of the bladder suspicious for cystitis. Recommend correlation urinary laboratory values. Bilateral tubal ligation clips. Small benign-appearing right ovarian follicle. Thoracolumbar spine fusion stable since prior study. Status post appendectomy. Electronically Signed: Kathy Aguilar MD at 1:49 EDT , Discharge Plan Triage Chief Complaint: Abd Pain ED Provider: Jimmy Lan Dx/Rx/DC Orders Clinical Impression: Umbilical hernia without obstruction and without gangrene, Urinary tract infection Instructions: How a Hernia Develops, ED Cystitis Female Adult Prescriptions: New oxycodone-acetaminophen [oxycodone-acetaminophen] 5-325 mg tablet 1 tab PO Q4H PRN (Reason: Pain) 3 Days Qty: 15 0RF ciprofloxacin HCl [ciprofloxacin HCl] 500 mg tablet 500 mg PO BID Qty: 14 0RF promethazine [promethazine] 25 mg tablet 25 mg PO Q6H PRN PRN (Reason: Nausea) Qty: 10 0RF No Action alprazolam 0.25 mg tablet 0.25 mg PO BID PRN PRN (Reason: Anxiety) fluoxetine [Prozac] 20 mg Capsule 60 mg PO DAILY Rx Instructions: administer in the morning and at noon/midday Primary Care Provider: Dario Poe Referrals: Dario Poe DO [Primary Care Provider] - 3-5 Days if not improving Disposition Disposition: Home, Self Care
[2022-12-09] MEDS: Ondansetron 4 MG/2 ML Vial IV
[2022-12-09 00:01] LABS: Absolute Lymphocyte Count 1.79 X10^3/uL (0.83-4.51); Absolute Neutrophil Count 9.5 X10^3/uL (2.0-7.7); Basophil# 0.04 X10^3/uL; Basophil% 0.3 % (0-1); Eosinophil# 0.05 X10^3/uL; Eosinophils% 0.4 % (0-5); Hematocrit 43.5 % (37-47); Hemoglobin 14.6 g/dL (12.0-15.0); Lymphocyte # 1.79 X10^3/ul (0.83-4.51); Lymphocyte % 14.5 % (19-41); Mean Corp Hgb Conc 33.6 g/dL (32-36); Mean Corpuscular Hgb 28.8 pg (27.0-32.0); Mean Corpuscular Volume 85.8 fL (81-99); Mean Platelet Vol. 11.1 fl (6.2-12.0); Monocyte# 0.91 X10^3/uL; Monocyte% 7.4 % (0-10); NRBC Flagged by Analyzer 0 % (0-5); Neutrophil # 9.54 X10^3/uL (2.7-7.7); Platelet Count 249 K/mm3 (150-450); RBC Distribution Width CV 12.7 % (11.6-14.6); RBC Distribution Width SD 39.2 fl (35.1-43.9); Red Blood Count 5.07 M/mm3 (4.2-5.4); White Blood Count 12.4 K/mm3 (4.4-11.0)
[2022-12-09] MEDS: 0.9% Normal Saline 1,000 ML 1000 ML IV (00:01)
[2022-12-09 00:23] LABS: Anion Gap 7 (5-15); BUN 7 mg/dL (7-18); BUN/Creat Ratio 9.2 RATIO (10-20); Calcium,Total 9.4 mg/dL (8.5-10.1); Chloride 107 mmol/L (98-107); Creatinine, Serum 0.76 mg/dL (0.55-1.02); EST Glomerular Filtration Rate 95 mL/min (>60); Est Glom Filt Rate - Afr Amer 115 mL/min (>60); Estimated Creatinine Clearance 102.25 ml/min; Glucose 90 mg/dL (74-106); Potassium 3.6 mmol/L (3.5-5.1); Sodium Level 138 mmol/L (136-145)
[2022-12-09 00:48] LABS: Mucous, Urine 0 SEEN /hpf (<or=2+); Red Blood Cells-Urine 0 SEEN /hpf (0-5); Squamous Epithelial Cells - UA 0 SEEN /hpf (5-10)
[2022-12-09 00:50] LABS: Color, Urine Yellow (Yellow); Glucose, Dipstick Normal (Normal); Ketone-Dipstick 5 mg/dl (Negative); Leukocyte Esterase-Dipstick 500 /ul (Negative); Nitrite-Dipstick Positive (Negative); Occult Blood-Urine 250 /ul (Negative); Protein-Dipstick 500 mg/dl (Negative); Specific Gravity, Urine 1.015 (1.002-1.030); Urine Bilirubin Dipstick Negative (Negative); Urine Clarity Cloudy (Clear); Urine Urobilinogen Normal (Normal)
[2022-12-09 01:00] LABS: White Blood Cells >100 SEEN /hpf (0-5)
[2022-12-09 01:01] LABS: Bacteria 3+ /hpf (None Seen)
[2022-12-09] MEDS: Morphine 4 MG/ML Syringe IV ×2 (01:04)
[2022-12-09] MEDS: Ketorolac 30 MG/ML Syringe IV (02:03)
[2022-12-09] MEDS: Dicyclomine 10 MG Capsule 20 MG PO (02:03)
[2022-12-09 02:11] VITALS: BP 128/76; PULSE 71; RESP 15; O2SAT 97
[2022-12-09] MEDS: Ceftriaxone 1 GM/50 ML BAG IV (02:18)
--- NOTE | 2022-12-09 23:41 | CT_ITS ---
STUDY: CT ABDOMEN AND PELVIS WITH CONTRAST REASON FOR EXAM: Female, 27 years old. Umbilical and lower abd pain, n/v, poss hernia RADIATION DOSAGE (If Supplied By Facility): CTDIvol = ( 19.83 ) mGy, DLP = ( 1403.26 ) mGycm TECHNIQUE: Transaxial images were obtained from the dome of the diaphragm to the symphysis pubis without oral contrast. Oral and amp; IV Gastrografin and amp; 100mL Isovue-300 was administered. Sagittal and coronal images were reconstructed. Individualized dose optimization techniques were used for this CT. COMPARISON: September 30, 2020 CT scan abdomen and pelvis., CT scan June 29, 2018 with contrast. FINDINGS: The visualized lung bases are unremarkable. The visualized portions of the heart are within normal limits. There is visualized mild intrahepatic dilatation more apparent than the prior studies without contrast. There is relatively stable appearing extrahepatic ductal dilatation. There are surgical clips in the gallbladder fossa consistent with a prior cholecystectomy. Normal spleen. Normal pancreas. Normal bilateral adrenal glands. There is minimal right pelviectasis. There is a punctate stone right kidney stable since prior study. There is a subtle suggestion of possible enhancement of the wall of the bilateral proximal ureters which may represent possible inflammatory change. There is a stable punctate stone left kidney no hydronephrosis. The visualized contrast in the stomach. There is mild distention of the small bowel. There is a nonspecific partially fluid-filled partially gas-filled appearance of this large bowel. There is a gassy distended appearance of the midline transverse colon at the level of the umbilicus without evidence of inflammatory change. There is visualized paraspinal cyst. This is similar to the prior study. Otherwise is a relative decompressed appearance of the descending colon. There are surgical clips in the region of the appendix consistent with a prior appendectomy. Normal abdominal aorta. Normal inferior vena cava. Normal retroperitoneum. There is wall thickening of the mildly distended bladder. There are bilateral tubal ligation clips. There is a stable nonspecific minimally thickened appearance of the endometrium. There is a small right ovarian follicle measuring 1.6 cm Diastases of the rectus muscle at the level the umbilicus stable since prior study with a visualized wide fatty hernia. Just deep to this area there is the aforementioned gassy distended appearance of the transverse colon.. There is a partially visualized thoracic spine fusion with spinal rods and cortical screws. There is visualized degenerative change at the level of L5-S1 without significant neural foramina narrowing or central stenosis. On image #53 axial views there is a small focal opening within the abdominal wall fascia above the umbilicus that measures approximately 5 mm into which a small focus of fat measuring 1.5 cm herniates. No inflammation associated with this small herniation this is similar to prior study. CT/Abdomen/Pelvis WITH Contrast IMPRESSION: Similar-appearing gassy distended appearance of the transverse colon just deep to the umbilicus without evidence of inflammation or obstruction. Small fatty umbilical hernia. Mild intrahepatic ductal dilatation which is similar to prior study June 29, 2018. Status post cholecystectomy. Could consider follow-up study such as ultrasound if appropriate. Punctate stones both kidneys. Nonspecific mild enhancement of the wall of the bilateral renal pelvis. Potentially inflammatory change or uteritis could have this appearance in the appropriate setting. There is mild wall thickening of the bladder suspicious for cystitis. Recommend correlation urinary laboratory values. Bilateral tubal ligation clips. Small benign-appearing right ovarian follicle. Thoracolumbar spine fusion stable since prior study. Status post appendectomy. Electronically Signed: Kathy Aguilar MD at 1:49 EDT Reading Location ID and State: [facility] / [place] Tel , Service support ,
== END 2022-12-09 02:43 | disposition home or self-care (01) ==
PROVIDERS: Emergency Provider Emergency Medicine; PCP Student in an Organized Health Care Education/Training Program; Visit Provider Emergency Medicine
DX: K42.9 Umbilical hernia without obstruction or gangrene (principal); N39.0 Urinary tract infection, site not specified; F41.9 Anxiety disorder, unspecified; F32.A Depression, unspecified; Z79.899 Other long term (current) drug therapy
CPT/HCPCS: 74177; 80048; 81001; 85025; 87077; 87086; 87088; 87186; 96361; 96365; 96375; 96376; 99284; J7030; Q9967; A4216; J2405

== ENCOUNTER 2023-03-07 13:22 | Emergency (ER) | payer MEDICAID, SELFPAY ==
[2023-03-07 13:23] VITALS: BP 116/66; PULSE 100; RESP 18; TEMP 36.2; O2SAT 97
--- NOTE | 2023-03-07 13:38 | EDS_ITS ---
HPI History of Present Illness Chief Complaint: Flank Pain Narrative Narrative: Patient is a 27-year-old female with history of anemia MRSA migraines, severe anxiety, depression who presents the emergency department with 2 to 3 days of right upper, right lower intermittent abdominal pain. Patient has had burning with urination as well. She has been feeling fever and chills. She states have some nausea and vomiting. Patient had multiple surgeries on her abdomen such as appendectomy, cholecystectomy, back surgery secondary to scoliosis. Patient denies any blood in her urine. Patient has had a tubal ligation, patient denies any concern for STD. [facility] Medical History Anxiety and depression Back problem Gallstones Kidney stones Home Medications alprazolam 0.25 mg tablet 0.25 mg PO BID PRN PRN Anxiety 12/08/22 [History Last Taken Unknown] fluoxetine 20 mg capsule (Prozac) 60 mg PO DAILY 12/08/22 [History Last Taken Unknown] ciprofloxacin HCl 500 mg tablet 500 mg PO BID #14 TABLETS 12/09/22 [Rx Last Taken Unknown] oxycodone-acetaminophen 5 mg-325 mg tablet 1 tab PO Q4H PRN Pain 3 days #15 TABLETS 12/09/22 [Rx Last Taken Unknown] promethazine 25 mg tablet 25 mg PO Q6H PRN PRN Nausea #10 TABLETS 12/09/22 [Rx Last Taken Unknown] ondansetron 4 mg disintegrating tablet 4 mg PO Q8H PRN PRN Nausea #10 tabs 03/07/23 [Rx Last Taken Unknown] oxycodone-acetaminophen 5 mg-325 mg tablet (Percocet) 1 tab PO Q8H PRN pain 3 days #10 tabs 03/07/23 [Rx Last Taken Unknown] sulfamethoxazole 800 mg-trimethoprim 160 mg tablet (Bactrim DS) 1 tab PO BID #20 tabs 03/07/23 [Rx Last Taken Unknown] Allergy/AdvReac Type Severity Reaction Status Date / Time vancomycin Allergy Severe Anaphylaxis Verified 12/08/22 23:09 Family History Mother Diabetes Hypertension Father Hypertension Grandmother Diabetes Surgical History History of appendectomy History of back surgery History of tubal ligation S/P ERCP S/P laparoscopic cholecystectomy Social History household members: children and other details: fiance number of children: 3 Smoking Status: Never smoker alcohol intake: never substance use type: does not use do you feel safe at home: Yes additional social history: DOES NOT USE ASPIRIN DOES USE IBUPROFEN ROS ROS ED ROS Narrative Constitutional: Negative for fever, chills, weight loss, weakness Eyes: Negative for vision loss, vision change, double vision ENT: Negative for any sore throat, ear pain, congestion Cardiovascular: Negative for any chest pain, tightness, palpitations Respiratory: Negative for any cough, sputum production, hemoptysis, dyspnea, dyspnea on exertion, orthopnea Gastrointestinal: Negative for any diarrhea, constipation, blood in stool, blood in vomit. Positive for abdominal pain, nausea and vomiting : Negative for any urinary frequency, retention, blood in urine. Positive for dysuria, burning with urination Muscle skeletal: Negative for any muscle joint pain, stiffness, myalgias, arthralgias, neck pain, back pain Neurological: Negative for any headache, syncope, numbness or tingling, dizziness Skin: Negative for any rashes, lumps, itching, abrasions, lacerations Psychiatric: Negative for any depression, anxiety, stress, suicidal ideation, homicidal ideation Hematologic: Negative for any easy bruising, excessive bruising, easy bleeding Allergies: Negative for any eczema, hives, rash EXAM Physical Exam Narrative Exam Narrative: Vital signs reviewed. HEET: Head normocephalic atraumatic, TMs clear bilaterally. Posterior pharynx is clear, moist mucous membranes. Nares clear bilaterally. Neck: Supple with no lymphadenopathy or tenderness. No signs of meningismus, negative jolt sign. Cardiac: Regular rate and rhythm no murmurs gallops or rubs, equal peripheral pulses bilaterally. Respiratory: Lungs clear to auscultation bilaterally. No chest tenderness. Abdomen: Soft, nondistended. No abdominal bruit or pulsatile masses. No hepatosplenomegaly. Patient did have some pain on palpation to the right upper quadrant, right mid lower quadrant. Patient pain was out of proportion, very li ght touch caused a significant pain response. Active bowel sounds in all quadrants. There is no peritoneal signs. The belly is soft. Extremities: No peripheral edema, no signs of gross trauma or deformity. Active full range of motion of all extremities. Neuro: Cranial nerves II through XII intact, no focal neurological deficits. Skin: Clean dry and intact with no rash, purpura, petechiae, vesicles or pustules. Backs/flank: No CVA tenderness, no midline spinal tenderness, no deformity. Psych: Normal mood and affect. No SI, HI or acute psychosis. Const Vital Signs: 03/07/23 13:23 03/07/23 15:48 Temperature 97.2 F L Temperature Source Temporal Pulse Rate 100 Respiratory Rate 18 16 Blood Pressure 116/66 Blood Pressure Mean 82 Pulse Ox 97 Oxygen Delivery Method Room Air [facility] Lab Data Labs: Laboratory Results - last 24 hr 03/07/23 03/07/23 13:44 14:22 WBC 10.6 RBC 4.26 Hgb 13.0 Hct 38.4 MCV 90.1 MCH 30.5 MCHC 33.9 RDW Std Deviation 41.1 RDW Coeff of Kell 12.6 Plt Count 197 MPV 10.3 Immature Gran % (Auto) 0.400 Neut % (Auto) 82.2 H Lymph % (Auto) 8.8 L [place] % (Auto) 8.3 Eos % (Auto) 0.1 Baso % (Auto) 0.2 Absolute Neuts (auto) 8.8 H Absolute Lymphs (auto) 0.94 Nucleated RBC % 0 Sodium 133 L Potassium 3.5 Chloride 100 Carbon Dioxide 24.0 Anion Gap 9 BUN 9 Creatinine 0.73 Estim Creat Clear Calc 106.45 Est GFR (MDRD) Af Amer 120 Est GFR (MDRD) Non-Af 99 BUN/Creatinine Ratio 12.3 Glucose 89 Calcium 9.1 Total Bilirubin 1.30 H AST 19 ALT 23 Alkaline Phosphatase 81 Total Protein 7.9 Albumin 3.8 Globulin 4.1 Albumin/Globulin Ratio 0.9 Lipase 16 Urine Color Yellow Urine Clarity Sl. Cloudy Urine pH 6.0 Ur Specific [place] 1.015 Urine Protein 100 H Urine Glucose (UA) Normal Urine Ketones 150 A* Urine Occult Blood 150 H Urine Nitrite Positive H Urine Bilirubin Negative Urine Urobilinogen 1 H Ur Leukocyte Esterase 500 H Urine RBC 0 SEEN Urine WBC >100 SEEN Ur Squamous Epith Cells 0 SEEN Urine Bacteria 0 SEEN Urine Mucus 0 SEEN Radiography Diagnostic Testing: Clinical Impression(s) from Imaging Studies Abdomen/Pelvis CT 03/07/23 15:04 IMPRESSION: 1. Findings consistent with cystitis and inflammatory stranding/mild dilatation of the right ureter extending to the right kidney with mild hydronephrosis. Right kidney demonstrates a heterogeneous appearance with mild surrounding inflammatory stranding concerning for early pyelonephritis, clinically correlate. Electronically Signed: Harsha Hernandez DO at 15:52 EDT , Treatment and Re-Evaluation :: Patient appears generally well, patient appears nontoxic, vital signs are stable. Patient presents to the emergency department for abdominal pain, nausea and vomiting, burning with urination for last 2 to 3 days. Physical examination shows some pain on palpation to the right upper quadrant. Patient will receive some basic laboratory values, IV fluids, Zofran and Toradol. She was given urinalysis concerning for infection. Patient's laboratory values show a normal CBC, chemistries show slight hyponatremia with a sodium of 133, increased creatinine at 1.3, patient has been up to 2.6 in the past. Patient's liver enzymes unremarkable. Urinalysis showed some blood, positive for nitrites, 500 leukocyte esterase, greater than 100 white blood cells. No bacteria this will be sent for culture. Concerning for pyelonephritis, other obstructing uropathy, patient did receive a CT scan of the abdomen pelvis IV contrast, this showed finding consistent with cystitis inflammatory stranding mild dilatation of the right ureter extending to the right kidney with mild hydronephrosis. This is likely early pyelonephritis. Patient is able to pass oral challenge, patient responded well to the Toradol, morphine, Zofran. Patient was given IV ceftriaxone. At this time, patient placed on 10 days of Bactrim, she will be given pain medicine, as well as nausea medicine. She will follow-up closely with her PCP. She is given strict return precaution to return for any worsening back pain, fever chills nausea vomiting. Discharge Plan Triage Chief Complaint: Flank Pain ED Midlevel Provider: Gil Weinstein ED Provider: Domonique Arana Dx/Rx/DC Orders Clinical Impression: Back pain, Pyelonephritis Instructions: ED Pyelonephritis, Female (Adult) Prescriptions: New sulfamethoxazole-trimethoprim [Bactrim DS] 800-160 mg tablet 1 tab PO BID Qty: 20 0RF ondansetron 4 mg tablet,disintegrating 4 mg PO Q8H PRN PRN (Reason: Nausea) Qty: 10 0RF oxycodone-acetaminophen [Percocet] 5-325 mg tablet 1 tab PO Q8H PRN (Reason: pain) 3 Days Qty: 10 0RF No Action alprazolam 0.25 mg tablet 0.25 mg PO BID PRN PRN (Reason: Anxiety) fluoxetine [Prozac] 20 mg Capsule 60 mg PO DAILY Rx Instructions: administer in the morning and at noon/midday oxycodone-acetaminophen [oxycodone-acetaminophen] 5-325 mg tablet 1 tab PO Q4H PRN (Reason: Pain) 3 Days Qty: 15 0RF ciprofloxacin HCl [ciprofloxacin HCl] 500 mg tablet 500 mg PO BID Qty: 14 0RF promethazine [promethazine] 25 mg tablet 25 mg PO Q6H PRN PRN (Reason: Nausea) Qty: 10 0RF Primary Care Provider: Dario Poe Referrals: Dario Poe DO [Primary Care Provider] - Activity Restrictions/Additional Instructions: Please follow-up, return for worsening back pain, fever or chills. Take antibiotics till finished. Disposition Disposition: Home, Self Care
[2023-03-07] MEDS: Ketorolac 15 MG/ML Vial IV ×2 (13:45→15:08)
[2023-03-07] MEDS: Ondansetron 4 MG/2 ML Vial IV (13:45)
[2023-03-07] MEDS: 0.9% Normal Saline 1,000 ML 1000 ML IV (13:45)
[2023-03-07 13:47] VITALS: BMI 34.8
[2023-03-07 13:49] LABS: Absolute Lymphocyte Count 0.94 X10^3/uL (0.83-4.51); Absolute Neutrophil Count 8.8 X10^3/uL (2.0-7.7); Basophil# 0.02 X10^3/uL; Basophil% 0.2 % (0-1); Eosinophil# 0.01 X10^3/uL; Eosinophils% 0.1 % (0-5); Hematocrit 38.4 % (37-47); Lymphocyte # 0.94 X10^3/ul (0.83-4.51); Lymphocyte % 8.8 % (19-41); Mean Corp Hgb Conc 33.9 g/dL (32-36); Mean Corpuscular Hgb 30.5 pg (27.0-32.0); Mean Corpuscular Volume 90.1 fL (81-99); Mean Platelet Vol. 10.3 fl (6.2-12.0); Monocyte# 0.88 X10^3/uL; Monocyte% 8.3 % (0-10); NRBC Flagged by Analyzer 0 % (0-5); Neutrophil # 8.75 X10^3/uL (2.7-7.7); Neutrophil % 82.2 % (47-70); Platelet Count 197 K/mm3 (150-450); RBC Distribution Width CV 12.6 % (11.6-14.6); RBC Distribution Width SD 41.1 fl (35.1-43.9); Red Blood Count 4.26 M/mm3 (4.2-5.4); White Blood Count 10.6 K/mm3 (4.4-11.0)
[2023-03-07 14:06] LABS: ALB/GLOB Ratio 0.9 RATIO (0.9-2.4); AST(SGOT) 19 U/L (15-37); Alanine Aminotransfer ALT/SGPT 23 U/L (13-56); Albumin, Serum 3.8 g/dL (3.2-5.0); Alkaline Phosphatase 81 U/L (45-117); Anion Gap 9 (5-15); BUN 9 mg/dL (7-18); BUN/Creat Ratio 12.3 RATIO (10-20); Calcium,Total 9.1 mg/dL (8.5-10.1); Chloride 100 mmol/L (98-107); Creatinine, Serum 0.73 mg/dL (0.55-1.02); EST Glomerular Filtration Rate 99 mL/min (>60); Est Glom Filt Rate - Afr Amer 120 mL/min (>60); Estimated Creatinine Clearance 106.45 ml/min; Globulin 4.1 g/dL (2.2-4.2); Glucose 89 mg/dL (74-106); Lipase 16 U/L (13-75); Potassium 3.5 mmol/L (3.5-5.1); Protein, Total 7.9 g/dL (6.4-8.2); Sodium Level 133 mmol/L (136-145)
[2023-03-07 14:23] LABS: Bacteria 0 SEEN /hpf (None Seen); Mucous, Urine 0 SEEN /hpf (<or=2+); Red Blood Cells-Urine 0 SEEN /hpf (0-5); Squamous Epithelial Cells - UA 0 SEEN /hpf (5-10)
[2023-03-07 14:32] LABS: Color, Urine Yellow (Yellow); Glucose, Dipstick Normal (Normal); Leukocyte Esterase-Dipstick 500 /ul (Negative); Nitrite-Dipstick Positive (Negative); Occult Blood-Urine 150 /ul (Negative); Protein-Dipstick 100 mg/dl (Negative); Specific Gravity, Urine 1.015 (1.002-1.030); Urine Bilirubin Dipstick Negative (Negative); Urine Clarity Sl. Cloudy (Clear); Urine Urobilinogen 1 mg/dl (Normal)
[2023-03-07 14:33] LABS: Ketone-Dipstick 150 mg/dl (Negative)
[2023-03-07 14:39] LABS: White Blood Cells >100 SEEN /hpf (0-5)
[2023-03-07] MEDS: Phenazopyridine 95 MG Tablet 190 MG PO (14:42)
--- NOTE | 2023-03-07 15:04 | CT_ITS ---
STUDY: CT ABDOMEN AND PELVIS WITH CONTRAST REASON FOR EXAM: Female, 27 years old. flank pain, PRIOR GB,APPY AND TUBIAL LIGATION RADIATION DOSAGE (If Supplied By Facility): CTDIvol = ( 18.26 ) mGy, DLP = ( 1314.81 ) mGycm TECHNIQUE: Transaxial images were obtained from the dome of the diaphragm to the symphysis pubis without oral contrast. IV 100mL Isovue-300 was administered. Sagittal and coronal images were reconstructed. Individualized dose optimization techniques were used for this CT. COMPARISON: 12/09/2022 CT abdomen and pelvis FINDINGS: The visualized lung bases are unremarkable. The visualized portions of the heart are within normal limits. Normal liver. There is non-visualization of the gallbladder, which may be secondary to either contraction or a prior cholecystectomy. Normal spleen. Normal pancreas. Normal bilateral adrenal glands. Mild right renal hydronephrosis with enhancing wall of the ureter along its course with mild surrounding inflammatory stranding. There is mild areas of low attenuation within the cortex of the right kidney with perinephric stranding. Normal left kidney. Normal visualized stomach. Normal small intestine. Normal colon. There are surgical clips in the region of the appendix consistent with a prior appendectomy. Normal abdominal aorta. Normal inferior vena cava. Normal retroperitoneum. There is mild wall thickening and inflammatory stranding the bladder wall. Normal abdominal wall. Normal osseous structures. CT/Abdomen/Pelvis W IV Cont ONLY IMPRESSION: 1. Findings consistent with cystitis and inflammatory stranding/mild dilatation of the right ureter extending to the right kidney with mild hydronephrosis. Right kidney demonstrates a heterogeneous appearance with mild surrounding inflammatory stranding concerning for early pyelonephritis, clinically correlate. Electronically Signed: Harsha Hernandez DO at 15:52 EDT ,
[2023-03-07] MEDS: Ceftriaxone 1 GM/50 ML BAG IV (15:44)
[2023-03-07] MEDS: Morphine 4 MG/ML Syringe IV (15:44)
[2023-03-07 15:48] VITALS: RESP 16
[2023-03-07] MEDS: Smz/Tmp Ds Tablet 1 TABLET PO (16:17)
[2023-03-07 16:56] VITALS: BP 113/82; PULSE 89; RESP 18; O2SAT 98
== END 2023-03-07 17:24 | disposition home or self-care (01) ==
PROVIDERS: Nurse Practitioner; Emergency Provider Emergency Medicine; PCP Student in an Organized Health Care Education/Training Program; Visit Provider Emergency Medicine
DX: N12 Tubulo-interstitial nephritis, not specified as acute or chronic (principal); Z11.3 Encounter for screening for infections with a predominantly sexual mode of transmission; Z90.49 Acquired absence of other specified parts of digestive tract
CPT/HCPCS: 74177; 80053; 81001; 83690; 85025; 87077; 87086; 87088; 87186; 87491; 87591; 96361; 96365; 96375; 96376; 99284; J7030; Q9967; A4216; J2405

== ENCOUNTER 2023-03-10 14:38 | Inpatient (IN) | payer MEDICAID, SELFPAY ==
[2023-03-10 14:39] VITALS: BP 116/57; PULSE 65; RESP 16; TEMP 36.6; O2SAT 98; BMI 32.5
[2023-03-10 15:35] VITALS: BP 111/65; PULSE 70; RESP 16; TEMP 37.2; O2SAT 100
--- NOTE | 2023-03-10 16:00 | EDS_ITS ---
HPI HPI - Female History of Present Illness Chief Complaint: Complaint Informant: patient Narrative Narrative: Patient presents with UTI symptoms but getting worse with more flank pain nausea vomiting and cannot keep her antibiotics down despite taking Zofran. I reviewed the chart from just few days ago. Patient was seen and evaluated had comprehensive work-up including blood work urine urine cultures and CAT scan of the abdomen. Urine cultures grew back E. coli that are pansensitive. She had excellent care and work-up and medications but the problem is she has nausea and vomiting and cannot keep any of her antibiotics down. She is still having a fair amount of flank pain. She feels dehydrated. [facility] Medical History Anxiety and depression Back problem Gallstones Kidney stones Home Medications alprazolam 0.25 mg tablet 0.25 mg PO BID PRN Anxiety 12/08/22 [History Last Taken Unknown] fluoxetine 20 mg capsule (Prozac) 20 mg PO DAILY ANXIETY 12/08/22 [History Last Taken Unknown] ciprofloxacin HCl 500 mg tablet 500 mg PO BID #14 TABLETS 12/09/22 [Rx Last Taken Unknown] promethazine 25 mg tablet 25 mg PO Q6H PRN PRN Nausea #10 TABLETS 12/09/22 [Rx Last Taken Unknown] ondansetron 4 mg disintegrating tablet 4 mg PO Q8H PRN PRN Nausea #10 tabs 03/07/23 [Rx Last Taken Unknown] oxycodone-acetaminophen 5 mg-325 mg tablet (Percocet) 1 tab PO Q8H PRN pain 3 days #10 tabs 03/07/23 [Rx Last Taken Unknown] sulfamethoxazole 800 mg-trimethoprim 160 mg tablet (Bactrim DS) 1 tab PO BID #20 tabs 03/07/23 [Rx Last Taken Unknown] fluoxetine 40 mg capsule 40 mg PO DAILY ANXIETY 03/10/23 [History Last Taken Unknown] Allergy/AdvReac Type Severity Reaction Status Date / Time vancomycin Allergy Severe Anaphylaxis Verified 03/10/23 14:41 Family History Mother Diabetes Hypertension Father Hypertension Grandmother Diabetes Surgical History History of appendectomy History of back surgery History of tubal ligation S/P ERCP S/P laparoscopic cholecystectomy Social History household members: children and other details: fiance number of children: 3 Smoking Status: Never smoker alcohol intake: never substance use type: does not use do you feel safe at home: Yes additional social history: DOES NOT USE ASPIRIN DOES USE IBUPROFEN ROS ROS ED ROS Narrative A complete review of systems was performed and is negative except as documented in the history of present illness. Some specific details below. Constitutional: Patient has had subjective fevers. EYE: No visual complaints or pain. ENT: No difficulty swallowing. No swelling. No pain. CV: No chest pain or palpitations. Respiratory: No dyspnea. No hemoptysis. No difficulty taking breaths. GI: She states she has soreness throughout her abdomen. This is the same as the other day. It is just not getting better. : Dysuria frequency and urgency. Urine has been cloudy. Also she has flank pain more on the right. Musculoskeletal: No recent trauma. No pains. Skin: No rash. Nondiaphoretic. Neuro: No weakness or numbness. Endocrine: No polyuria or polydipsia. EXAM Physical Exam Narrative Exam Narrative: CONSTITUTIONAL: Patient is nontoxic in appearance. The patient looks comfortable. She is holding an emesis bag that does have some fluid without blood in it HEENT: No notable trauma. Mucous membranes are dry. EYES: No conjunctival injection. No proptosis. CARDIOVASCULAR: Regular rate. Regular rhythm. No notable murmur. No JVD. RESPIRATORY: No respiratory distress. Breathing is unlabored. No wheezes. No rhonchi. No rales. No pain with a deep breath. GASTROINTESTINAL: Not distended. Bowel sounds are normal. Patient really has no notable tenderness. Her whole abdomen is just sore but is not really tender. There is certainly no rebound or guarding. There is no mass. Her abdomen is quite soft. GENITOURINARY: No tenderness over the bladder. She does have right CVA tenderness but no rash over the area. MUSCULOSKELETAL: Atraumatic. No peripheral edema. No cord. No tenderness along the deep venous system. No asymmetry. Note well-healed scar in her back from [place] rods. NEUROLOGICAL: Patient is alert and appropriate. No focal deficit noted. SKIN: No noted rashes. No diaphoresis. PSYCHIATRIC: Patient is calm. Mood is appropriate. Const Vital Signs: 03/10/23 14:39 03/10/23 15:35 Temperature 97.8 F 98.9 F Temperature Source Temporal Oral Pulse Rate 65 70 Respiratory Rate 16 16 Blood Pressure 116/57 L 111/65 Blood Pressure Mean 76 80 Pulse Ox 98 100 Oxygen Delivery Method Room Air Room Air MDM MDM MDM Narrative Medical decision making narrative: Patient CBC shows mildly low hemoglobin white count. Platelets are normal. Patient's electrolytes show no marked abnormalities. Patient's urine actually looks better than it did the other day. Even though the urine looks better today, she has culture positive UTI with pyelonephritis by symptoms and CT scan. She is not able to keep down her antibiotics. I do not think going home is appropriate. I think this is failed outpatient therapy. I think with hydration and nausea control we should be able to get her to the point we can get her home back on antibiotics and improved. I discussed the case with the hospitalist. Lab Data Attestation: I reviewed the patient's lab results. Labs: Laboratory Results - last 24 hr 03/10/23 03/10/23 16:05 17:11 WBC 4.1 L RBC 3.94 L Hgb 11.6 L Hct 36.1 L MCV 91.6 MCH 29.4 MCHC 32.1 D RDW Std Deviation 43.2 RDW Coeff of Kell 12.9 Plt Count 163 MPV 12.3 H Immature Gran % (Auto) 1.200 H Neut % (Auto) 59.2 Lymph % (Auto) 25.4 [place] % (Auto) 13.0 H Eos % (Auto) 0.7 Baso % (Auto) 0.5 Absolute Neuts (auto) 2.5 Absolute Lymphs (auto) 1.05 Nucleated RBC % 0 Sodium 135 L Potassium 4.6 Chloride 104 Carbon Dioxide 26.0 Anion Gap 5 BUN 7 Creatinine 0.65 Estim Creat Clear Calc 119.55 Est GFR (MDRD) Af Amer 138 Est GFR (MDRD) Non-Af 114 BUN/Creatinine Ratio 10.8 Glucose 77 Calcium 9.3 Urine Color Yellow Urine Clarity Clear Urine pH 7.0 Ur Specific [place] 1.005 Urine Protein Negative Urine Glucose (UA) Normal Urine Ketones 5 H Urine Occult Blood Negative Urine Nitrite Negative Urine Bilirubin Negative Urine Urobilinogen 1 H Ur Leukocyte Esterase 25 H Urine RBC 0 SEEN Urine WBC 0-5 SEEN Ur Squamous Epith Cells 0-5 SEEN Urine Bacteria 0 SEEN Urine Mucus 0 SEEN Management Discussion w/another healthcare provider: Hospitalist Discharge Plan Triage Chief Complaint: Complaint ED Provider: lOu De Leon Dx/Rx/DC Orders Clinical Impression: Failure of outpatient treatment, Pyelonephritis, Nausea & vomiting Prescriptions: No Action alprazolam 0.25 mg tablet 0.25 mg PO BID PRN (Reason: Anxiety) fluoxetine [Prozac] 20 mg Capsule 20 mg PO DAILY Rx Instructions: TAKE ONE CAPSULE (20MG) BY MOUTH ONCE DAILY WITH ONE 40MG CAPSULE FOR A TOTAL DAILY DOSE OF 60MG ciprofloxacin HCl [ciprofloxacin HCl] 500 mg tablet 500 mg PO BID Qty: 14 0RF promethazine [promethazine] 25 mg tablet 25 mg PO Q6H PRN PRN (Reason: Nausea) Qty: 10 0RF sulfamethoxazole-trimethoprim [Bactrim DS] 800-160 mg tablet 1 tab PO BID Qty: 20 0RF ondansetron 4 mg tablet,disintegrating 4 mg PO Q8H PRN PRN (Reason: Nausea) Qty: 10 0RF oxycodone-acetaminophen [Percocet] 5-325 mg tablet 1 tab PO Q8H PRN (Reason: pain) 3 Days Qty: 10 0RF fluoxetine 40 mg capsule 40 mg PO DAILY Rx Instructions: TAKE ONE CAPSULE (20MG) BY MOUTH ONCE DAILY WITH ONE 40MG CAPSULE FOR A TOTAL DAILY DOSE OF 60MG Primary Care Provider: Dario Poe Referrals: Dario Poe DO [Primary Care Provider] - Disposition Disposition: Acute Care [facility]
[2023-03-10] MEDS: Morphine 4 MG/ML Syringe IV (16:12)
[2023-03-10] MEDS: Ondansetron 4 MG/2 ML Vial IV ×2 (16:12→23:08)
[2023-03-10] MEDS: 0.9% Normal Saline 1,000 ML 1000 ML IV (16:12)
[2023-03-10 16:24] LABS: Absolute Lymphocyte Count 1.05 X10^3/uL (0.83-4.51); Absolute Neutrophil Count 2.5 X10^3/uL (2.0-7.7); Basophil# 0.02 X10^3/uL; Basophil% 0.5 % (0-1); Eosinophil# 0.03 X10^3/uL; Eosinophils% 0.7 % (0-5); Hematocrit 36.1 % (37-47); Hemoglobin 11.6 g/dL (12.0-15.0); Lymphocyte # 1.05 X10^3/ul (0.83-4.51); Lymphocyte % 25.4 % (19-41); Mean Corp Hgb Conc 32.1 g/dL (32-36); Mean Corpuscular Hgb 29.4 pg (27.0-32.0); Mean Corpuscular Volume 91.6 fL (81-99); Mean Platelet Vol. 12.3 fl (6.2-12.0); Monocyte# 0.54 X10^3/uL; NRBC Flagged by Analyzer 0 % (0-5); Neutrophil # 2.45 X10^3/uL (2.7-7.7); Neutrophil % 59.2 % (47-70); POSITIVE COUNT YES; Platelet Count 163 K/mm3 (150-450); RBC Distribution Width CV 12.9 % (11.6-14.6); RBC Distribution Width SD 43.2 fl (35.1-43.9); Red Blood Count 3.94 M/mm3 (4.2-5.4); White Blood Count 4.1 K/mm3 (4.4-11.0)
[2023-03-10 16:42] LABS: Anion Gap 5 (5-15); BUN 7 mg/dL (7-18); BUN/Creat Ratio 10.8 RATIO (10-20); Calcium,Total 9.3 mg/dL (8.5-10.1); Chloride 104 mmol/L (98-107); Creatinine, Serum 0.65 mg/dL (0.55-1.02); EST Glomerular Filtration Rate 114 mL/min (>60); Est Glom Filt Rate - Afr Amer 138 mL/min (>60); Estimated Creatinine Clearance 119.55 ml/min; Glucose 77 mg/dL (74-106); Potassium 4.6 mmol/L (3.5-5.1); Sodium Level 135 mmol/L (136-145)
[2023-03-10] MEDS: Ceftriaxone 1 GM/50 ML BAG IV (16:44)
[2023-03-10 16:45] LABS: Differential Indicated SCAN CRITERIA MET
[2023-03-10 17:15] LABS: Bacteria 0 SEEN /hpf (None Seen); Mucous, Urine 0 SEEN /hpf (<or=2+); Red Blood Cells-Urine 0 SEEN /hpf (0-5)
[2023-03-10 17:21] LABS: Color, Urine Yellow (Yellow); Glucose, Dipstick Normal (Normal); Ketone-Dipstick 5 mg/dl (Negative); Leukocyte Esterase-Dipstick 25 /ul (Negative); Nitrite-Dipstick Negative (Negative); Occult Blood-Urine Negative /ul (Negative); Protein-Dipstick Negative (Negative); Specific Gravity, Urine 1.005 (1.002-1.030); Urine Bilirubin Dipstick Negative (Negative); Urine Clarity Clear (Clear); Urine Urobilinogen 1 mg/dl (Normal)
[2023-03-10 17:31] LABS: Squamous Epithelial Cells - UA 0-5 SEEN /hpf (5-10); White Blood Cells 0-5 SEEN /hpf (0-5)
--- NOTE | 2023-03-10 17:36 | PCM.HP.STD ---
HPI - General General Date of Admission: 03/10/23 Date of Service: 03/10/23 Chief Complaint: Right upper quadrant pain with radiation to right upper back, renal colic pain started on 03/05/2023. Nausea and vomiting associated symptoms HPI Narrative SANTIAGO SALGUERO, is a 27 F came to ED for progressive worsening of right flank pain along with nausea and vomiting. She describes her pain as right upper quadrant with radiation to right upper back wrapping around flank region and sometimes radiates down to the umbilicus and suprapubic region started on 03/05/2023. Over last 5 days patient got worse. She came to ED on 03/07/2023 and was discharged on Bactrim DS, Percocet and ondansetron. At that time ultrasound shows inflammatory stranding/mild limitation of right ureter extending to right kidney with mild hydronephrosis. Right kidney showing heterogenicity appearance with mild surrounding inflammatory stranding concerning for early nephritis. UA was more than 100 WBC cells and LE and nitrite positive. Patient came back today with nausea and vomiting about 5 times per day of for last 2 days. Initially it was clear then turned into yellowish-green. Patient has burning micturition and suprapubic pain since beginning but getting better. Denies vaginal bleeding or acute [employer] issues. Denies alteration in bowel movement. She also had feverish with chills. In ED, her vitals are in normal range with no fever. She is further admitted for right-sided pyelonephritis with nausea and vomiting and unable to take oral antibiotic. [facility] Medical History Anxiety and depression Back problem Gallstones Kidney stones Home Medications alprazolam 0.25 mg tablet 0.25 mg PO BID PRN Anxiety 12/08/22 [History Last Taken 03/09/23] fluoxetine 20 mg capsule (Prozac) 20 mg PO DAILY ANXIETY 12/08/22 [History Last Taken 03/08/23] oxycodone-acetaminophen 5 mg-325 mg tablet (Percocet) 1 tab PO Q8H PRN pain 3 days #10 tabs 03/07/23 [Rx Last Taken Unknown] sulfamethoxazole 800 mg-trimethoprim 160 mg tablet (Bactrim DS) 1 tab PO BID #20 tabs 03/07/23 [Rx Last Taken 03/09/23] fluoxetine 40 mg capsule 40 mg PO DAILY ANXIETY 03/10/23 [History Last Taken 03/08/23] ondansetron 4 mg disintegrating tablet 4 mg PO Q8H PRN Nausea 03/10/23 [History Last Taken 03/09/23] Allergy/AdvReac Type Severity Reaction Status Date / Time vancomycin Allergy Severe Anaphylaxis Verified 03/10/23 14:41 Family History Mother Diabetes Hypertension Father Hypertension Grandmother Diabetes Surgical History History of appendectomy History of back surgery History of tubal ligation S/P ERCP S/P laparoscopic cholecystectomy Social History household members: children and other details: fiance number of children: 3 Smoking Status: Never smoker alcohol intake: never substance use type: does not use do you feel safe at home: Yes additional social history: DOES NOT USE ASPIRIN DOES USE IBUPROFEN ROS ROS Narrative Constitutional: Reports fatigue and weakness. Intermittent fever. HEENT: Reports systems reviewed and no addt'l complaints, except as documented Respiratory/Chest: No acute shortness of breath or respiratory distress or wheezing. CVS: Denies chest pain tightness or pressure. No cardiac history Gastrointestinal: Denies coffee ground emesis, hematemesis or melena. No alteration of bowel movement Genitourinary: As described in HPI Musculoskeletal: Denies acute joint pain or limited range of motion. No acute injury Neurologic: Denies seizure-like symptoms. Psychiatry: History of anxiety and mild depression. skin: No ulcer. No rash Endocrinology: Reports systems reviewed and no addt'l complaints, except as documented Hematologic/Lymphatic: Reports systems reviewed and no addt'l complaints, except as documented Rest 14 ROS are negative except as mentioned in HPI Vital Signs Vital Signs Vital Signs: 03/10/23 14:39 03/10/23 15:35 Temperature 97.8 F 98.9 F Temperature Source Temporal Oral Pulse Rate 65 70 Respiratory Rate 16 16 Blood Pressure 116/57 L 111/65 Blood Pressure Mean 76 80 Pulse Ox 98 100 Oxygen Delivery Method Room Air Room Air Weight Weight: 202 lb Body Mass Index (BMI) 32.5 Physical Exam Narrative General: Alert, Oriented x3, Cooperative HEENT: Atraumatic, PERRLA, EOMI, Normocephalic Oral: Oral mucosa dry. No Gingival or Mucosal Lesions/ Ulcerations Neck: Supple, No JVD, Negative Carotid Bruits Lungs: Air entry diminished in bilateral lung bases. No crepitation/rhonchi Cardiovascular: Regular rate, Regular Rhythm, Normal S1, Normal S2, No murmurs Abdomen: Bowel Sounds Present, Soft, tenderness present over right upper quadrant. No hepatomegaly. : Tenderness present over right flank and right renal angle. No suprapubic tenderness. Dysuria present. Extremities: No edema, Capillary Refill Less than 3 Seconds Skin: No rashes, No breakdown Musculoskeletal: No Tenderness to Palpation of Joints or Extremities Neurological: Cranial nerves II-XII grossly intact, DTR 2+/4. No acute focal neurological deficit. Psych/Mental Status: Flat affect. Results Lab / Micro Data 03/10/23 16:05 03/10/23 16:05 Labs: Laboratory Results - last 24 hr 03/10/23 16:05: WBC 4.1 L, RBC 3.94 L, Hgb 11.6 L, Hct 36.1 L, MCV 91.6, MCH 29.4, MCHC 32.1 D, RDW Std Deviation 43.2, RDW Coeff of Kell 12.9, Plt Count 163, MPV 12.3 H, Immature Gran % (Auto) 1.200 H, Neut % (Auto) 59.2, Lymph % (Auto) 25.4, [place] % (Auto) 13.0 H, Eos % (Auto) 0.7, Baso % (Auto) 0.5, Absolute Neuts (auto) 2.5, Absolute Lymphs (auto) 1.05, Nucleated RBC % 0, Sodium 135 L, Potassium 4.6, Chloride 104, Carbon Dioxide 26.0, Anion Gap 5, BUN 7, Creatinine 0.65, Estim Creat Clear Calc 119.55, Est GFR (MDRD) Af Amer 138, Est GFR (MDRD) Non-Af 114, BUN/Creatinine Ratio 10.8, Glucose 77, Calcium 9.3 03/10/23 17:11: Urine Color Yellow, Urine Clarity Clear, Urine pH 7.0, Ur Specific [place] 1.005, Urine Protein Negative, Urine Glucose (UA) Normal, Urine Ketones 5 H, Urine Occult Blood Negative, Urine Nitrite Negative, Urine Bilirubin Negative, Urine Urobilinogen 1 H, Ur Leukocyte Esterase 25 H, Urine RBC 0 SEEN, Urine WBC 0-5 SEEN, Ur Squamous Epith Cells 0-5 SEEN, Urine Bacteria 0 SEEN, Urine Mucus 0 SEEN Assessment & Plan Assessment/Plan (1) Pyelonephritis: (2) Nausea & vomiting: QUALIFIERS: Vomiting type: bilious vomiting Qualified Code(s): R11.14 - Bilious vomiting PLAN: This is a 27-year-old gentleman admitted for pyelonephritis unable to take oral antibiotics because of nausea and vomiting. 1. Right-sided pyelonephritis: [facility] Started on IV antibiotics ceftriaxone IV and will continue it. Urine culture and blood culture ordered. Repeat UA shows LE 25, nitrite negative WBC improved to 0?5 cells from 100 cells. Therefore antibiotic is working on patient probably having nausea and vomiting from Bactrim DS. Patient has history of kidney stone when she was about 9 years ago but she did not require any procedure therefore might have passed spontaneously. 2. Nausea and vomiting probably related to Bactrim DS or acute pyelonephritis: Symptomatic management. IV fluid normal saline 100 Emmel per hour for 2 L as patient is dehydrated. 3. History of back pain status post back surgery which required Henderson anne-marie, appendectomy and cholecystectomy in the past: 4. Mild anxiety and depression: Patient on fluoxetine 60 mg daily, decreased to 40 mg daily. DVT prophylaxis low risk. No pharmacological prophylaxis indicated. Early ambulation encouraged. PLAN: Plan Patient is vomiting antibiotic down Charges/Coding Visit Charges Inpatient E&M: 73738 Init Hosp L3
[2023-03-10] MEDS: fentaNYL 100 MCG/2 ML Ampul 25 MCG IV (17:59)
[2023-03-10] MEDS: DiphenhydrAMINE 50 MG/ML Syringe IV (17:59)
[2023-03-10] MEDS: MethylPREDNISolone 125 MG/2 ML Vial 60 MG IV (18:00)
[2023-03-10 18:47] VITALS: BP 127/77; PULSE 67; RESP 20; TEMP 36.4; O2SAT 97
[2023-03-10 18:48] LABS: Differential Comment SCANNED
[2023-03-10 19:16] LABS: Magnesium 2.2 mg/dL (1.6-2.6)
[2023-03-10 22:05] VITALS: BP 112/68; PULSE 60; RESP 16; TEMP 36.6; O2SAT 98
[2023-03-10 22:32] VITALS: BMI 32.4
[2023-03-10] MEDS: 0.9% Normal Saline 1,000 ML 100 ML IV (23:07)
[2023-03-10] MEDS: oxyCODONE 5 MG Tablet PO (23:08)
[2023-03-10] MEDS: 0.9% Saline Lock 10 ML Syringe IV (23:08)
[2023-03-10] MEDS: Acetaminophen 325 MG Tablet 650 MG PO (23:08)
[2023-03-11 04:00] VITALS: BP 104/71; PULSE 60; RESP 16; TEMP 36.2; O2SAT 97
[2023-03-11] MEDS: oxyCODONE 5 MG Tablet PO ×5 (04:22→22:45)
[2023-03-11 07:09] LABS: Absolute Lymphocyte Count 0.63 X10^3/uL (0.83-4.51); Absolute Neutrophil Count 3.7 X10^3/uL (2.0-7.7); Basophil# 0.01 X10^3/uL; Basophil% 0.2 % (0-1); Hematocrit 32.6 % (37-47); Hemoglobin 10.5 g/dL (12.0-15.0); Lymphocyte # 0.63 X10^3/ul (0.83-4.51); Lymphocyte % 13.3 % (19-41); Mean Corp Hgb Conc 32.2 g/dL (32-36); Mean Corpuscular Hgb 29.1 pg (27.0-32.0); Mean Corpuscular Volume 90.3 fL (81-99); Mean Platelet Vol. 10.8 fl (6.2-12.0); Monocyte# 0.35 X10^3/uL; Monocyte% 7.4 % (0-10); NRBC Flagged by Analyzer 0 % (0-5); Neutrophil # 3.71 X10^3/uL (2.7-7.7); Neutrophil % 78.3 % (47-70); Platelet Count 188 K/mm3 (150-450); RBC Distribution Width CV 12.6 % (11.6-14.6); RBC Distribution Width SD 41.8 fl (35.1-43.9); Red Blood Count 3.61 M/mm3 (4.2-5.4); White Blood Count 4.7 K/mm3 (4.4-11.0)
[2023-03-11 08:00] LABS: Anion Gap 7 (5-15); BUN 6 mg/dL (7-18); BUN/Creat Ratio 13.5 RATIO (10-20); Chloride 105 mmol/L (98-107); Creatinine, Serum 0.44 mg/dL (0.55-1.02); EST Glomerular Filtration Rate 177 mL/min (>60); Est Glom Filt Rate - Afr Amer 214 mL/min (>60); Estimated Creatinine Clearance 176.61 ml/min; Glucose 127 mg/dL (74-106); Sodium Level 138 mmol/L (136-145)
[2023-03-11 08:30] VITALS: BP 101/58; PULSE 57; RESP 18; TEMP 36.6; O2SAT 98
[2023-03-11] MEDS: 0.9% Normal Saline 1,000 ML 100 ML IV (08:41)
[2023-03-11] MEDS: FLUoxetine 20 MG Capsule 60 MG PO ×2 (08:41)
[2023-03-11] MEDS: Ciprofloxacin 400 MG/200 ML BAG 200 MG IV ×2 (10:25→22:45)
--- NOTE | 2023-03-11 10:49 | PCM.PN.HOSP ---
Reason for Visit Reason for Visit: Diagnoses Tubulo-interstitial nephritis, not specified as acute or chronic (03/10/23) Bilious vomiting (03/10/23) Subjective Subjective Patient still reports right-sided flank pain but denies nausea and would like to try to eat something more substantial diet coyd Objective Data Objective Data Vital Signs: Vital Signs Temp Pulse Resp BP Pulse Ox O2 Del Method 97.8 F 57 L 18 101/58 L 98 Room Air 03/11/23 08:30 03/11/23 08:30 03/11/23 08:30 03/11/23 08:30 03/11/23 08:30 03/11/23 08:30 Oxygen Delivery Method Room Air Weight: 91.1 kg Body Mass Index (BMI) 32.4 Intake & Output: Intake and Output for Last 24 Hours 03/09/23 03/10/23 03/11/23 23:59 23:59 23:59 Intake Total 1050 / 1050 1130.00 / 1130.00 Balance 1050 / 1050 1130.00 / 1130.00 Lab / Micro Data 03/11/23 02:00 03/11/23 02:00 Labs: Laboratory Results - last 24 hr 03/10/23 16:05: WBC 4.1 L, RBC 3.94 L, Hgb 11.6 L, Hct 36.1 L, MCV 91.6, MCH 29.4, MCHC 32.1 D, RDW Std Deviation 43.2, RDW Coeff of Kell 12.9, Plt Count 163, MPV 12.3 H, Immature Gran % (Auto) 1.200 H, Neut % (Auto) 59.2, Lymph % (Auto) 25.4, [place] % (Auto) 13.0 H, Eos % (Auto) 0.7, Baso % (Auto) 0.5, Absolute Neuts (auto) 2.5, Absolute Lymphs (auto) 1.05, Nucleated RBC % 0, Differential Comment SCANNED, Sodium 135 L, Potassium 4.6, Chloride 104, Carbon Dioxide 26.0, Anion Gap 5, BUN 7, Creatinine 0.65, Estim Creat Clear Calc 119.55, Est GFR (MDRD) Af Amer 138, Est GFR (MDRD) Non-Af 114, BUN/Creatinine Ratio 10.8, Glucose 77, Calcium 9.3, Magnesium 2.2 03/10/23 17:11: Urine Color Yellow, Urine Clarity Clear, Urine pH 7.0, Ur Specific [place] 1.005, Urine Protein Negative, Urine Glucose (UA) Normal, Urine Ketones 5 H, Urine Occult Blood Negative, Urine Nitrite Negative, Urine Bilirubin Negative, Urine Urobilinogen 1 H, Ur Leukocyte Esterase 25 H, Urine RBC 0 SEEN, Urine WBC 0-5 SEEN, Ur Squamous Epith Cells 0-5 SEEN, Urine Bacteria 0 SEEN, Urine Mucus 0 SEEN 03/11/23 02:00: WBC 4.7, RBC 3.61 L, Hgb 10.5 L, Hct 32.6 L, MCV 90.3, MCH 29.1, MCHC 32.2, RDW Std Deviation 41.8, RDW Coeff of Kell 12.6, Plt Count 188, MPV 10.8, Immature Gran % (Auto) 0.800, Neut % (Auto) 78.3 H, Lymph % (Auto) 13.3 L, [place] % (Auto) 7.4, Eos % (Auto) 0.0, Baso % (Auto) 0.2, Absolute Neuts (auto) 3.7, Absolute Lymphs (auto) 0.63 L, Nucleated RBC % 0, Sodium 138, Potassium 4.0, Chloride 105, Carbon Dioxide 26.0, Anion Gap 7, BUN 6 L, Creatinine 0.44 L, Estim Creat Clear Calc 176.61, Est GFR (MDRD) Af Amer 214, Est GFR (MDRD) Non-Af 177, BUN/Creatinine Ratio 13.5, Glucose 127 H, Calcium 9.0 Physical Exam Narrative General: Alert, oriented, no apparent distress HEENT: Atraumatic, normocephalic Eyes: Anicteric, normal conjunctiva, extraocular movements grossly intact Neck: Supple Respiratory: Clear to auscultation bilaterally, normal respiratory effort Cardiovascular: Regular rate and rhythm GI: Soft, some right-sided flank tenderness, no rebound, guarding, rigidity Extremities: No edema Musculoskeletal: Moving all extremities Neuro: No overt focal neurological deficits Skin: No rashes appreciated Psych: Cooperative Assessment & Plan Assessment/Plan (1) Pyelonephritis: (2) Nausea & vomiting: QUALIFIERS: Vomiting type: bilious vomiting Qualified Code(s): R11.14 - Bilious vomiting PLAN: This is a 27-year-old gentleman admitted for pyelonephritis unable to take oral antibiotics because of nausea and vomiting. #Right-sided pyelonephritis: Patient is being admitted on [facility] floor as an observation. Started on IV antibiotics ceftriaxone IV and will continue it. Urine culture and blood culture ordered. Repeat UA shows LE 25, nitrite negative WBC improved to 0?5 cells from 100 cells. Therefore antibiotic is working on patient probably having nausea and vomiting from Bactrim DS. Patient has history of kidney stone when she was about 9 years ago but she did not require any procedure therefore might have passed spontaneously. -03/11: Continue Cipro (had reaction Rocephin in ED and was given Benadryl), status post fluids, will attempt to advance diet. Awaiting urine culture, continue symptomatic/pain control #Nausea and vomiting probably related to Bactrim DS or acute pyelonephritis: Symptomatic management. IV fluid normal saline 100 Emmel per hour for 2 L as patient is dehydrated. -03/11: Resolved nausea, will attempt to advance diet #Anemia -Hemoglobin 10.5 down from 11.6 and previously had been 13, may be due to fluids however unclear reason for underlying anemia to begin with, will check B12 and iron studies #History of back pain status post back surgery which required Henderson anne-marie/appendectomy/cholecystectomy in the past -03/11: Supportive care #Mild anxiety and depression: Patient on fluoxetine 60 mg daily, decreased to 40 mg daily. -03/11: May increase to 60 mg as that was home dose and is not inappropriate dose #DVT ppx: Low risk, ambulatory, observation status Madeline Lopez MD Time spent in the patient's overall evaluation,decision-making process, review of diagnostic data, adjustment of management, discussion with other providers, nursing nursing and ancillary staff involved in patient's care documentation, 37 minutes PLAN: Plan Patient is vomiting antibiotic down Charges/Coding Visit Charges Inpatient E&M: 08790 Subs Hosp L2
[2023-03-11] MEDS: 0.9% Saline Lock 10 ML Syringe IV ×2 (12:50→22:45)
[2023-03-11] MEDS: Ondansetron 4 MG/2 ML Vial IV (12:50)
[2023-03-11] MEDS: ALPRAZolam 0.25 MG Tablet PO ×2 (14:13)
[2023-03-11 14:30] VITALS: BP 98/55; PULSE 70; RESP 18; TEMP 36.4; O2SAT 97
[2023-03-11] MEDS: Ensure Plus High Protein 120 ML LIQUID PO (18:02)
[2023-03-11 22:23] VITALS: BP 103/63; PULSE 63; RESP 16; TEMP 36.5; O2SAT 97
[2023-03-12] MEDS: 0.9% Saline Lock 10 ML Syringe IV ×3 (01:03→22:11)
[2023-03-12 01:04] VITALS: BP 105/63; PULSE 66; RESP 18; TEMP 36.5; O2SAT 96
[2023-03-12] MEDS: ALPRAZolam 0.25 MG Tablet PO ×3 (01:11→21:29)
[2023-03-12 05:58] VITALS: BP 119/66; PULSE 67; RESP 18; TEMP 36.2; O2SAT 96
[2023-03-12] MEDS: oxyCODONE 5 MG Tablet PO ×4 (06:04→21:28)
[2023-03-12] MEDS: Acetaminophen 325 MG Tablet 650 MG PO ×2 (06:04→12:05)
[2023-03-12 06:23] LABS: Absolute Lymphocyte Count 2.49 X10^3/uL (0.83-4.51); Absolute Neutrophil Count 3.9 X10^3/uL (2.0-7.7); Basophil# 0.02 X10^3/uL; Basophil% 0.3 % (0-1); Eosinophil# 0.04 X10^3/uL; Eosinophils% 0.6 % (0-5); Hematocrit 32.7 % (37-47); Hemoglobin 10.6 g/dL (12.0-15.0); Lymphocyte # 2.49 X10^3/ul (0.83-4.51); Lymphocyte % 35.2 % (19-41); Mean Corp Hgb Conc 32.4 g/dL (32-36); Mean Corpuscular Hgb 29.6 pg (27.0-32.0); Mean Corpuscular Volume 91.3 fL (81-99); Mean Platelet Vol. 10.4 fl (6.2-12.0); Monocyte# 0.62 X10^3/uL; Monocyte% 8.8 % (0-10); NRBC Flagged by Analyzer 0 % (0-5); Neutrophil # 3.86 X10^3/uL (2.7-7.7); Neutrophil % 54.4 % (47-70); Platelet Count 207 K/mm3 (150-450); RBC Distribution Width CV 12.9 % (11.6-14.6); RBC Distribution Width SD 43.2 fl (35.1-43.9); Red Blood Count 3.58 M/mm3 (4.2-5.4); White Blood Count 7.1 K/mm3 (4.4-11.0)
[2023-03-12 07:38] LABS: Anion Gap 3 (5-15); BUN 10 mg/dL (7-18); BUN/Creat Ratio 14.7 RATIO (10-20); Calcium,Total 8.5 mg/dL (8.5-10.1); Chloride 107 mmol/L (98-107); Creatinine, Serum 0.68 mg/dL (0.55-1.02); EST Glomerular Filtration Rate 108 mL/min (>60); Est Glom Filt Rate - Afr Amer 131 mL/min (>60); Estimated Creatinine Clearance 114.28 ml/min; Ferritin 79 ng/mL (8-252); Glucose 115 mg/dL (74-106); Iron 39 ug/dL (50-170); Iron Binding Capacity,Total 255 ug/dL (250-450); PERCENT IRON SATURATION 15.3 % (15.0-55.0); Potassium 3.2 mmol/L (3.5-5.1); Sodium Level 140 mmol/L (136-145)
[2023-03-12 08:36] LABS: Vitamin B12 359 pg/mL (211-911)
[2023-03-12 09:30] VITALS: BP 102/67; PULSE 52; RESP 18; TEMP 36.6; O2SAT 98
[2023-03-12] MEDS: FLUoxetine 20 MG Capsule 60 MG PO (09:31)
[2023-03-12] MEDS: Ensure Plus High Protein 120 ML LIQUID PO ×2 (09:31→17:13)
[2023-03-12] MEDS: Ciprofloxacin 400 MG/200 ML BAG 200 MG IV ×2 (09:31→22:11)
[2023-03-12] MEDS: Ondansetron 4 MG/2 ML Vial IV (10:56)
[2023-03-12] MEDS: Potassium Chloride Oral Tablet 20 MEQ 40 MEQ PO (12:02)
[2023-03-12] MEDS: Iron Polysaccharide Complex 150 MG CAPSULE PO (12:02)
[2023-03-12] MEDS: Polyethylene Glycol 3350 17 GM PACKET PO (12:02)
[2023-03-12 14:15] VITALS: BP 100/64; PULSE 66; RESP 18; TEMP 36.5; O2SAT 98
--- NOTE | 2023-03-12 14:24 | PCM.PN.HOSP ---
Reason for Visit Reason for Visit: Diagnoses Tubulo-interstitial nephritis, not specified as acute or chronic (03/10/23) Bilious vomiting (03/10/23) Subjective Subjective Patient reports still having right-sided pain around to her flank and also has some epigastric pain. Additionally reports she had a very small bowel movement on Wednesday and does not remember the time before that that she had any bowel movements. She has some nausea still but wants to eat regular food. Urinating fair Objective Data Objective Data Vital Signs: Vital Signs Temp Pulse Resp BP Pulse Ox O2 Del Method 97.7 F L 66 18 100/64 98 Room Air 03/12/23 14:15 03/12/23 14:15 03/12/23 14:15 03/12/23 14:15 03/12/23 14:15 03/12/23 14:15 Oxygen Delivery Method Room Air Weight: 91.1 kg Body Mass Index (BMI) 32.4 Intake & Output: Intake and Output for Last 24 Hours 03/10/23 03/11/23 03/12/23 23:59 23:59 23:59 Intake Total 1050 / 1050 2853.33 / 2853.33 250 / 250 Output Total 100 / 100 Balance 1050 / 1050 2853.33 / 2853.33 150 / 150 Lab / Micro Data 03/12/23 05:53 03/12/23 05:53 Labs: Laboratory Results - last 24 hr 03/12/23 05:53: WBC 7.1, RBC 3.58 L, Hgb 10.6 L, Hct 32.7 L, MCV 91.3, MCH 29.6, MCHC 32.4, RDW Std Deviation 43.2, RDW Coeff of Ekll 12.9, Plt Count 207, MPV 10.4, Immature Gran % (Auto) 0.700, Neut % (Auto) 54.4, Lymph % (Auto) 35.2, [place] % (Auto) 8.8, Eos % (Auto) 0.6, Baso % (Auto) 0.3, Absolute Neuts (auto) 3.9, Absolute Lymphs (auto) 2.49, Nucleated RBC % 0, Sodium 140, Potassium 3.2 L, Chloride 107, Carbon Dioxide 30.0, Anion Gap 3 L, BUN 10, Creatinine 0.68, Estim Creat Clear Calc 114.28, Est GFR (MDRD) Af Amer 131, Est GFR (MDRD) Non-Af 108, BUN/Creatinine Ratio 14.7, Glucose 115 H, Calcium 8.5, Iron 39 L, TIBC 255, Iron Saturation 15.3, Ferritin 79, Vitamin B12 359, Folate 6.70 Micro: Microbiology 03/10/23 07:11 Urine, Clean Catch Urine Culture - Final Culture exhibits no growth. Physical Exam Narrative General: Alert, oriented, no apparent distress, sitting up in bed eating HEENT: Atraumatic, normocephalic Eyes: Anicteric, normal conjunctiva, extraocular movements grossly intact Neck: Supple Respiratory: Clear to auscultation bilaterally, normal respiratory effort Cardiovascular: Regular rate and rhythm GI: Soft, some right-sided flank tenderness, no rebound, guarding, rigidity but also some slight epigastric tenderness Extremities: No edema Musculoskeletal: Moving all extremities Neuro: No overt focal neurological deficits Skin: No rashes appreciated Psych: Cooperative Assessment & Plan Assessment/Plan (1) Pyelonephritis: (2) Nausea & vomiting: QUALIFIERS: Vomiting type: bilious vomiting Qualified Code(s): R11.14 - Bilious vomiting PLAN: This is a 27-year-old gentleman admitted for pyelonephritis unable to take oral antibiotics because of nausea and vomiting. #Right-sided pyelonephritis: Patient is being admitted on [facility] floor as an observation. Started on IV antibiotics ceftriaxone IV and will continue it. Urine culture and blood culture ordered. Repeat UA shows LE 25, nitrite negative WBC improved to 0?5 cells from 100 cells. Therefore antibiotic is working on patient probably having nausea and vomiting from Bactrim DS. Patient has history of kidney stone when she was about 9 years ago but she did not require any procedure therefore might have passed spontaneously. -03/11: Continue Cipro (had reaction Rocephin in ED and was given Benadryl), status post fluids, will attempt to advance diet. Awaiting urine culture, continue symptomatic/pain control -03/12: Patient reports still some nausea and epigastric pain, she did when she eats she has some burning in the epigastrium, this may be irritated due to her nausea and vomiting so we will start Protonix, lipase within normal limits. Additionally has had 1 small bowel movement on Wednesday and cannot remember a bowel movement before that, significant constipation could be leading to some of the nausea and vomiting symptoms, will add stool softener. Patient does seem to be feeling quite a bit better and slowly is eating more with her diet, when she is able to consistently tolerate p.o. and is no longer vomiting will be okay for discharge. Continue Cipro. Urine culture 03/10 negative however she had received antibiotics and did have a positive urine culture 03/07 and given pyelowe'll treat this as complicated UTI, symptoms slowly resolving #Nausea and vomiting probably related to Bactrim DS or acute pyelonephritis: Symptomatic management. IV fluid normal saline 100 Emmel per hour for 2 L as patient is dehydrated. -03/11: Resolved nausea, will attempt to advance diet -03/12: Has had some recurrence of nausea as above #Anemia -Hemoglobin 10.5 down from 11.6 and previously had been 13, may be due to fluids however unclear reason for underlying anemia to begin with, will check B12 and iron studies -03/12: Iron slightly low, B12 and folate within normal limits. May need further work-up on outpatient basis #History of back pain status post back surgery which required Henderson anne-marie/appendectomy/cholecystectomy in the past -03/11: Supportive care #Mild anxiety and depression: Patient on fluoxetine 60 mg daily, decreased to 40 mg daily. -03/11: May increase to 60 mg as that was home dose and is not inappropriate dose #DVT ppx: Low risk, ambulatory, observation status Madeline Lopez MD Time spent in the patient's overall evaluation,decision-making process, review of diagnostic data, adjustment of management, discussion with other providers, nursing nursing and ancillary staff involved in patient's care documentation, 37 minutes Charges/Coding Visit Charges Inpatient E&M: 39333 Subs Hosp L2
[2023-03-12 15:07] LABS: AST(SGOT) 11 U/L (15-37); Alanine Aminotransfer ALT/SGPT 26 U/L (13-56); Albumin, Serum 2.7 g/dL (3.2-5.0); Alkaline Phosphatase 80 U/L (45-117); Bilirubin, Direct 0.08 mg/dL (0.00-0.30); Globulin 3.7 g/dL (2.2-4.2); Lipase 32 U/L (13-75); Protein, Total 6.4 g/dL (6.4-8.2)
--- NOTE | 2023-03-12 15:10 | CASEMGMT ---
ÁLVARO MASTERSON Assessment: Face to Face with pt for initial transition planning/care coordination assessment. ÁLVARO MASTERSON introduced self and role at [facility], pt voices understanding and consents to assessment. Pt is A/O x4 and answers all questions appropriately at this time. Pt lying in bed in no distress. Care providers, pharmacy, and demographics verified/updated. Admitting Dx: right pyelonephritis, N/V PCP:Lui Specialists:pt denies Preferred Pharmacy:[facility] Retail Insurance: [facility] Prescription Benefit: yes LNOK: Benito Vaughn, sig other; Karoline Delgadillo, stepmother Living Arrangements: Pt lives with sig other and 3 children and sig other's brother. Pt reports she is I in ADL's and denies concerns at home. Transportation: Pt currently does not have her license. She states family transports her to medical appts. DME/HHC/SNF: Pt denies having any DME, has had HHC in the past but unsure of the name of the agency. Pt denies SNF stays. Pt states no concerns with going home at time of dc. Pt states no further concerns/needs. CM to follow. Advised pt to ask CM if any further question/concerns/needs arise, voices understanding. Pt Goal: Home Plan: Home
[2023-03-12 17:15] VITALS: BP 117/65; PULSE 51; RESP 18; TEMP 36.7; O2SAT 100
[2023-03-12 17:27] LABS: Bedside Glucose 85 mg/dL (74-106)
[2023-03-12 21:27] VITALS: BP 116/78; PULSE 62; RESP 18; TEMP 36.8; O2SAT 100
[2023-03-12] MEDS: Ketorolac 30 MG/ML Syringe IV (23:07)
[2023-03-12] MEDS: proCHLORPERazine 10 MG/2 ML Vial 5 MG IV (23:07)
[2023-03-13 03:24] VITALS: BP 120/76; PULSE 60; RESP 16; TEMP 36.6; O2SAT 100
[2023-03-13] MEDS: oxyCODONE 5 MG Tablet PO ×4 (03:27→21:29)
[2023-03-13 06:11] LABS: Absolute Lymphocyte Count 2.27 X10^3/uL (0.83-4.51); Absolute Neutrophil Count 2.9 X10^3/uL (2.0-7.7); Basophil# 0.03 X10^3/uL; Basophil% 0.5 % (0-1); Eosinophil# 0.07 X10^3/uL; Eosinophils% 1.2 % (0-5); Lymphocyte # 2.27 X10^3/ul (0.83-4.51); Lymphocyte % 38.8 % (19-41); Mean Corp Hgb Conc 31.3 g/dL (32-36); Mean Corpuscular Volume 92.8 fL (81-99); Mean Platelet Vol. 10.8 fl (6.2-12.0); Monocyte% 8.5 % (0-10); NRBC Flagged by Analyzer 0 % (0-5); Neutrophil # 2.87 X10^3/uL (2.7-7.7); Neutrophil % 49.1 % (47-70); Platelet Count 195 K/mm3 (150-450); RBC Distribution Width CV 12.8 % (11.6-14.6); RBC Distribution Width SD 43.3 fl (35.1-43.9); Red Blood Count 3.45 M/mm3 (4.2-5.4); White Blood Count 5.9 K/mm3 (4.4-11.0)
[2023-03-13 06:46] LABS: Anion Gap 3 (5-15); BUN 7 mg/dL (7-18); BUN/Creat Ratio 14.9 RATIO (10-20); Calcium,Total 8.6 mg/dL (8.5-10.1); Chloride 106 mmol/L (98-107); Creatinine, Serum 0.47 mg/dL (0.55-1.02); EST Glomerular Filtration Rate 165 mL/min (>60); Est Glom Filt Rate - Afr Amer 200 mL/min (>60); Estimated Creatinine Clearance 165.34 ml/min; Glucose 84 mg/dL (74-106); Potassium 3.7 mmol/L (3.5-5.1); Sodium Level 138 mmol/L (136-145)
[2023-03-13 09:30] VITALS: BP 132/83; PULSE 58; RESP 16; TEMP 36.7; O2SAT 99
[2023-03-13] MEDS: Iron Polysaccharide Complex 150 MG CAPSULE PO (09:49)
[2023-03-13] MEDS: FLUoxetine 20 MG Capsule 60 MG PO (09:49)
[2023-03-13] MEDS: Polyethylene Glycol 3350 17 GM PACKET PO (09:50)
--- NOTE | 2023-03-13 09:53 | PCM.PROGNOTE ---
Subjective Subjective Patient seen and examined. She still complained of right upper quadrant pain. She denies any nausea, vomiting or any other symptoms. Review of systems is otherwise negative. She has remained hemodynamically stable. Objective Data Objective Data Vital Signs: Vital Signs Temp Pulse Resp BP Pulse Ox O2 Del Method 98 F 60 16 120/76 100 Room Air 03/13/23 03:24 03/13/23 03:24 03/13/23 03:24 03/13/23 03:24 03/13/23 03:24 03/13/23 03:30 Oxygen Delivery Method Room Air Weight: 200 lb 13.458 oz Body Mass Index (BMI) 32.4 Intake & Output: Intake and Output for Last 24 Hours 03/11/23 03/12/23 03/13/23 23:59 23:59 23:59 Intake Total 2853.33 / 2853.33 960 / 960 350 / 350 Output Total 250 / 250 Balance 2853.33 / 2853.33 710 / 710 350 / 350 Lab / Micro Data 03/13/23 05:40 03/13/23 05:40 Labs: Laboratory Results - last 24 hr 03/12/23 05:53: Total Bilirubin 0.10 L, Direct Bilirubin 0.08, AST 11 L, ALT 26, Alkaline Phosphatase 80, Total Protein 6.4, Albumin 2.7 L, Globulin 3.7, Lipase 32 03/12/23 17:07: POC Glucose 85 03/13/23 05:40: WBC 5.9, RBC 3.45 L, Hgb 10.0 L, Hct 32.0 L, MCV 92.8, MCH 29.0, MCHC 31.3 L, RDW Std Deviation 43.3, RDW Coeff of Kell 12.8, Plt Count 195, MPV 10.8, Immature Gran % (Auto) 1.900 H, Neut % (Auto) 49.1, Lymph % (Auto) 38.8, [place] % (Auto) 8.5, Eos % (Auto) 1.2, Baso % (Auto) 0.5, Absolute Neuts (auto) 2.9, Absolute Lymphs (auto) 2.27, Nucleated RBC % 0, Sodium 138, Potassium 3.7, Chloride 106, Carbon Dioxide 29.0, Anion Gap 3 L, BUN 7, Creatinine 0.47 L, Estim Creat Clear Calc 165.34, Est GFR (MDRD) Af Amer 200, Est GFR (MDRD) Non-Af 165, BUN/Creatinine Ratio 14.9, Glucose 84, Calcium 8.6 Micro: Microbiology 03/10/23 07:11 Urine, Clean Catch Urine Culture - Final Culture exhibits no growth. Physical Exam Const alert, oriented x3, no apparent distress and well nourished Constitutional Narrative: obese General Appearance: cooperative and well developed HEENT normocephalic, head/scalp atraumatic, moist oral mucous membranes and oropharynx normal Eyes PERRL and EOMs intact bilaterally Neck no lymphadenopathy, supple and no JVD Lymph Lymphatic: no lymphadenopathy noted and no lymphedema noted Cardio regular rate, regular rhythm, S1 normal heart sound, S2 normal heart sound and no murmurs GI normal to inspection, nondistended, normoactive bowel sounds GI Narrative: mild RUQ tenderness, no guarding or rebound tenderness. Has mild right CVA tenderness. Extremity normal capillary refill, no clubbing, cyanosis or edema and no calf tenderness General Extremity: no tenderness to palpation of joints or extremities Skin General Skin Exam: no breakdown Neuro CN's II-XII intact bilaterally, no focal motor deficits, no sensory deficits noted and deep tendon reflexes 2+ bilaterally Psych thought process normal and cooperative Appearance: appropriate Assessment & Plan Assessment/Plan (1) Nausea & vomiting: QUALIFIERS: Vomiting type: bilious vomiting Qualified Code(s): R11.14 - Bilious vomiting (2) Pyelonephritis: PLAN: Plan #Right pyelonephritis Still complains of some mild right-sided flank pain. On IV ciprofloxacin. Urine cultures have been negative. He still feels pain so continue with pain medication and anticipate discharge by tomorrow. #Nausea and vomiting: Largely resolved. Was thought to be due to pyelonephritis or reaction to Bactrim. Largely resolved. IV Zofran as needed. #History of back pain s/p surgery stable #Anxiety and depression: On fluoxetine 60 mg daily. DVT prophylaxis: SCDs Charges/Coding Visit Charges Inpatient E&M: 82705 Subs Hosp L2
[2023-03-13] MEDS: Ciprofloxacin 400 MG/200 ML BAG 200 MG IV ×2 (10:08→21:39)
[2023-03-13] MEDS: Ketorolac 30 MG/ML Syringe IV ×2 (10:08→16:22)
[2023-03-13] MEDS: ALPRAZolam 0.25 MG Tablet PO (10:08)
[2023-03-13] MEDS: Ondansetron 4 MG/2 ML Vial IV (11:19)
[2023-03-13 16:35] VITALS: BP 122/80; PULSE 57; RESP 16; TEMP 36.8; O2SAT 99
[2023-03-13 21:18] VITALS: BP 116/80; PULSE 56; RESP 18; TEMP 36.6; O2SAT 100
[2023-03-14] MEDS: Ketorolac 30 MG/ML Syringe IV ×2 (01:22→13:52)
[2023-03-14 02:44] VITALS: BP 111/76; PULSE 56; RESP 16; TEMP 36.6; O2SAT 98
[2023-03-14] MEDS: ALPRAZolam 0.25 MG Tablet PO ×2 (02:47→13:52)
[2023-03-14] MEDS: oxyCODONE 5 MG Tablet PO ×2 (02:51→11:08)
[2023-03-14 06:00] LABS: Absolute Lymphocyte Count 2.41 X10^3/uL (0.83-4.51); Absolute Neutrophil Count 3.3 X10^3/uL (2.0-7.7); Basophil# 0.04 X10^3/uL; Basophil% 0.6 % (0-1); Eosinophil# 0.11 X10^3/uL; Eosinophils% 1.6 % (0-5); Hematocrit 31.9 % (37-47); Hemoglobin 10.2 g/dL (12.0-15.0); Lymphocyte # 2.41 X10^3/ul (0.83-4.51); Lymphocyte % 36.1 % (19-41); Mean Corpuscular Hgb 29.3 pg (27.0-32.0); Mean Corpuscular Volume 91.7 fL (81-99); Mean Platelet Vol. 10.6 fl (6.2-12.0); NRBC Flagged by Analyzer 0 % (0-5); Neutrophil # 3.31 X10^3/uL (2.7-7.7); Neutrophil % 49.6 % (47-70); Platelet Count 222 K/mm3 (150-450); RBC Distribution Width CV 12.5 % (11.6-14.6); RBC Distribution Width SD 41.6 fl (35.1-43.9); Red Blood Count 3.48 M/mm3 (4.2-5.4); White Blood Count 6.7 K/mm3 (4.4-11.0)
[2023-03-14 06:33] LABS: Anion Gap 4 (5-15); BUN 8 mg/dL (7-18); BUN/Creat Ratio 13.2 RATIO (10-20); Calcium,Total 8.6 mg/dL (8.5-10.1); Chloride 106 mmol/L (98-107); Creatinine, Serum 0.61 mg/dL (0.55-1.02); EST Glomerular Filtration Rate 123 mL/min (>60); Est Glom Filt Rate - Afr Amer 149 mL/min (>60); Estimated Creatinine Clearance 127.39 ml/min; Glucose 84 mg/dL (74-106); Potassium 3.8 mmol/L (3.5-5.1); Sodium Level 140 mmol/L (136-145)
[2023-03-14 09:00] VITALS: BP 108/76; PULSE 80; RESP 18; TEMP 36.6; O2SAT 95
[2023-03-14 10:00] VITALS: PULSE 80; RESP 20; O2SAT 95
--- NOTE | 2023-03-14 10:18 | DS.PCM_ITS ---
Providers Date of Admission: 03/10/23 Date of Discharge: 03/14/23 Primary Care Physician: Dr. Dario Poe, Reason For Visit: RIGHT PYELONEPHRITIS, N/V Diagnosis Discharge Diagnosis (1) Nausea & vomiting: Status: Acute Code(s): R11.2 - Nausea with vomiting, unspecified Qualifiers: Vomiting type: bilious vomiting Qualified Code(s): R11.14 - Bilious vomiting (2) Pyelonephritis: Status: Acute Code(s): N12 - Tubulo-interstitial nephritis, not specified as acute or chronic Plan #Right pyelonephritis * Still complains of some mild right-sided flank pain. On IV ciprofloxacin. * Urine cultures have been negative. He still feels pain so continue with pain medication and anticipate discharge by tomorrow. * #Nausea and vomiting: Largely resolved. Was thought to be due to pyelonephritis or reaction to Bactrim. Largely resolved. IV Zofran as needed. #History of back pain s/p surgery stable #Anxiety and depression: On fluoxetine 60 mg daily. DVT prophylaxis: SCDs Medications at Discharge Home Medications alprazolam 0.25 mg tablet 0.25 mg PO BID PRN Anxiety 12/08/22 fluoxetine 20 mg capsule (Prozac) 20 mg PO DAILY ANXIETY 12/08/22 oxycodone-acetaminophen 5 mg-325 mg tablet (Percocet) 1 tab PO Q8H PRN pain 3 days #10 tabs 03/07/23 fluoxetine 40 mg capsule 40 mg PO DAILY ANXIETY 03/10/23 ondansetron 4 mg disintegrating tablet 4 mg PO Q8H PRN Nausea 03/10/23 ciprofloxacin HCl 500 mg tablet 500 mg PO BID #8 tabs 03/14/23 Hospital Course Operations None Procedures None Summary of Care Provided Minutes Spent on Discharge: 47 Hospital Course: Patient is a 27 y/o female with a PMH as outlined who was admitted via the ED on 03/14/2023 with a complaitn of right flank pain, nausea and vomiting. Started a few days prior to admission and gradually gotten worse. She had gone to the ED on 03/07/2023 and diagnosed with UTI and discharged on Bactrim. She had ultrasound done which showed inflammatory stranding of the right ureter extending to the right kidney with mild hydronephrosis. There was concern for early nephritis. Urinalysis showed evidence of UTI. However the symptoms did not improve so she came back to the ED because of nausea and vomiting. She was admitted and managed for right-sided pyelonephritis. She was started on IV ceftriaxone. Antibiotics were transitioned to IV ciprofloxacin. Urine cultures were negative. Hip pain gradually improved and she felt better. Nausea and vomiting resolved. She felt much better and right flank pain improved. She was discharged home on 03/14/2023 on p.o. ciprofloxacin 500 mg twice daily for 4 days to complete a 7-day course. She is to follow-up with her primary care doctor within 1 to 2 weeks. Patient seen and examined prior to discharge. She felt much better and had no complaints. She had an uneventful night and review of systems otherwise negative. Labs and vitals reviewed. Home medication reviewed and reconciled. Physical Exam Const alert, oriented x3, no apparent distress and well nourished Constitutional Narrative: obese General Appearance: cooperative, comfortable, well kempt and well developed HEENT normocephalic, head/scalp atraumatic, hearing grossly normal bilaterally, moist oral mucous membranes and oropharynx normal Mouth: oral and palatal mucosa normal Eyes PERRL and EOMs intact bilaterally Neck no lymphadenopathy, supple and no JVD Lymph Lymphatic: no lymphadenopathy noted and no lymphedema noted Resp normal respiratory effort, no retractions, no use of accessory muscles and clear to auscultation bilaterally Cardio regular rate, regular rhythm, S1 normal heart sound, S2 normal heart sound and no murmurs GI normal to inspection, nondistended, normoactive bowel sounds GI Narrative: RUQ tenderness resolved. Extremity normal to inspection, full ROM, normal capillary refill, no clubbing, cyanosis or edema and no calf tenderness General Extremity: no tenderness to palpation of joints or extremities Skin no rashes or lesions noted, no wounds and skin turgor normal General Skin Exam: no breakdown Neuro oriented x3, CN's II-XII intact bilaterally, moves all extremities, no focal motor deficits, no sensory deficits noted and deep tendon reflexes 2+ bilaterally Sensorium / Orientation: awake and alert Motor Exam: strength 5/5 throughout Psych thought process normal, cooperative and affect normal Appearance: appropriate Weight / BMI Weight Weight: 200 lb 13.458 oz Body Mass Index (BMI) 32.4 ABG / Lab / Microbiology Data 03/14/23 05:35 03/14/23 05:35 Laboratory: Laboratory Results - last 24 hr 03/14/23 05:35: WBC 6.7, RBC 3.48 L, Hgb 10.2 L, Hct 31.9 L, MCV 91.7, MCH 29.3, MCHC 32.0, RDW Std Deviation 41.6, RDW Coeff of Kell 12.5, Plt Count 222, MPV 10.6, Immature Gran % (Auto) 3.100 H, Neut % (Auto) 49.6, Lymph % (Auto) 36.1, [place] % (Auto) 9.0, Eos % (Auto) 1.6, Baso % (Auto) 0.6, Absolute Neuts (auto) 3.3, Absolute Lymphs (auto) 2.41, Nucleated RBC % 0, Sodium 140, Potassium 3.8, Chloride 106, Carbon Dioxide 30.0, Anion Gap 4 L, BUN 8, Creatinine 0.61, Estim Creat Clear Calc 127.39, Est GFR (MDRD) Af Amer 149, Est GFR (MDRD) Non-Af 123, BUN/Creatinine Ratio 13.2, Glucose 84, Calcium 8.6 Microbiology: Microbiology 03/10/23 19:20 Blood Culture (Wb) - Anticubital Left Blood Culture - Preliminary No growth in 48 hours. 03/10/23 07:11 Urine, Clean Catch Urine Culture - Final Culture exhibits no growth. D/C Instructions Discharge Diet: Low fat / Low cholesterol Discharge Activity: Return to Normal Activity Weight Bearing Status: Weight bearing as tolerated Call your doctor if you observe: Fever of 101 or Higher, Shortness of breath, Dizziness, Swelling in the ankles and Chest pain Meaningful Use Info Meaningful Use Diagnoses (Choose all that apply): None applicable Discharge Plan Admission Admit Date/Time: 03/10/23 17:37 Primary Reason for Your Visit: acute pyelonephritis Attending Provider: Trisha Max Primary Care Provider: Dario Poe Consulting Providers: Carlos Enrique Hernandez; Madeline Lopez Instructions Patient Instructions: Urinary Tract Infections in Women, ED Pyelonephritis, Female (Adult) Discharge Orders/Prescriptions Prescriptions: New ciprofloxacin HCl 500 mg tablet 500 mg PO BID Qty: 8 0RF Continued alprazolam 0.25 mg tablet 0.25 mg PO BID PRN (Reason: Anxiety) fluoxetine [Prozac] 20 mg Capsule 20 mg PO DAILY Rx Instructions: TAKE ONE CAPSULE (20MG) BY MOUTH ONCE DAILY WITH ONE 40MG CAPSULE FOR A TOTAL DAILY DOSE OF 60MG oxycodone-acetaminophen [Percocet] 5-325 mg tablet 1 tab PO Q8H PRN (Reason: pain) 3 Days Qty: 10 0RF fluoxetine 40 mg capsule 40 mg PO DAILY Rx Instructions: TAKE ONE CAPSULE (20MG) BY MOUTH ONCE DAILY WITH ONE 40MG CAPSULE FOR A TOTAL DAILY DOSE OF 60MG ondansetron 4 mg tablet,disintegrating 4 mg PO Q8H PRN (Reason: Nausea) Discontinued sulfamethoxazole-trimethoprim [Bactrim DS] 800-160 mg tablet 1 tab PO BID Qty: 20 0RF Referrals / Follow Up: Dario Poe DO [Primary Care Provider] - Within 1 Week Disposition Disposition (needs filled in before D/C Order can be placed): Home, Self Care Charges/Coding Visit Charges Inpatient E&M: 24031 Disch Hosp >30min
[2023-03-14] MEDS: Iron Polysaccharide Complex 150 MG CAPSULE PO (11:01)
[2023-03-14] MEDS: FLUoxetine 20 MG Capsule 60 MG PO (11:02)
[2023-03-14 14:00] VITALS: BP 111/58; PULSE 86; RESP 18; TEMP 36.6; O2SAT 95
[2023-03-14] MEDS: Acetaminophen 325 MG Tablet 650 MG PO (14:03)
== END 2023-03-14 14:20 | disposition home or self-care (01) | DRG 463 ==
LOC: ED 17:45 → MS3 03-11 06:37
PROVIDERS: Internal Medicine; Admitting Provider Internal Medicine; Emergency Provider Emergency Medicine; PCP Student in an Organized Health Care Education/Training Program; Visit Provider Student in an Organized Health Care Education/Training Program
DX: N10 Acute pyelonephritis (principal); F32.A Depression, unspecified; F41.9 Anxiety disorder, unspecified; Z79.899 Other long term (current) drug therapy; Z79.891 Long term (current) use of opiate analgesic; Z11.3 Encounter for screening for infections with a predominantly sexual mode of transmission; Z90.49 Acquired absence of other specified parts of digestive tract
CPT/HCPCS: 36415; 74177; 80048; 80053; 80076; 81001; 82607; 82728; 82746; 82962; 83540; 83550; 83690; 83735; 85025; 87040; 87077; 87086; 87088; 87186; 87491; 87591; 96361; 96365; 96375; 96376; 97802; 99283; 99284; J7030; Q9967; A4216; J0744; J2405

== ENCOUNTER 2023-03-24 20:33 | Emergency (ER) | payer MEDICAID, SELFPAY ==
[2023-03-24 20:35] VITALS: BP 126/89; PULSE 72; RESP 16; TEMP 36.5; O2SAT 100; BMI 32.2
[2023-03-24 20:38] VITALS: BP 126/89; PULSE 72; RESP 16; TEMP 36.5; O2SAT 99
[2023-03-24 21:58] LABS: Red Blood Cells-Urine 0 SEEN /hpf (0-5); Squamous Epithelial Cells - UA 0 SEEN /hpf (5-10)
--- NOTE | 2023-03-24 21:59 | EDS_ITS ---
HPI History of Present Illness Chief Complaint: Flank Pain Informant: patient Narrative Narrative: Current right flank pain over the past 2 days. No nausea or vomiting. No current urine symptoms. Was discharged 4 days ago reported 5-day stay for pyelonephritis. Sent home additional 2 days of Cipro for which she finished. Allergy Rocephin and vancomycin. States she had CT scan negative for kidney stones when she was admitted. Reports having chills. Prior similar symptoms: Yes PFSH PFSH Medical History Anxiety and depression Back problem Gallstones Kidney stones Home Medications alprazolam 0.25 mg tablet 0.25 mg PO BID PRN Anxiety 12/08/22 [History Last Taken 03/09/23] fluoxetine 20 mg capsule (Prozac) 20 mg PO DAILY ANXIETY 12/08/22 [History Last Taken 03/08/23] fluoxetine 40 mg capsule 40 mg PO DAILY ANXIETY 03/10/23 [History Last Taken 03/08/23] ondansetron 4 mg disintegrating tablet 4 mg PO Q8H PRN Nausea 03/10/23 [History Last Taken 03/09/23] ciprofloxacin HCl 500 mg tablet 500 mg PO BID #14 TABLETS 03/25/23 [Rx Last Taken Unknown] oxycodone-acetaminophen 5 mg-325 mg tablet 1 tab PO Q6H PRN PRN Pain 3 days #12 TABLETS 03/25/23 [Rx Last Taken Unknown] Allergy/AdvReac Type Severity Reaction Status Date / Time vancomycin Allergy Severe Anaphylaxis Verified 03/24/23 20:34 ceftriaxone [From Rocephin] Allergy Mild Swelling Verified 03/24/23 20:34 Family History Mother Diabetes Hypertension Father Hypertension Grandmother Diabetes Surgical History History of appendectomy History of back surgery History of tubal ligation S/P ERCP S/P laparoscopic cholecystectomy Social History household members: children and other details: fiance number of children: 3 Smoking Status: Never smoker alcohol intake: never substance use type: does not use do you feel safe at home: Yes additional social history: DOES NOT USE ASPIRIN DOES USE IBUPROFEN ROS ROS ED Constitutional Constitutional ED: Denies chills, fever(s) or sweats Eyes Eyes: Denies change in vision ENT ENT ED: Denies dysphagia or sore throat Cardiovascular Cardiovascular: Denies chest pain, leg edema, palpitations or racing heartbeat Respiratory/Chest Respiratory/Chest: Denies cough, dyspnea or dyspnea on exertion Gastrointestinal Gastrointestinal: Denies abdominal pain, diarrhea, nausea or vomiting Genitourinary Genitourinary ED: Denies dysuria, hematuria or urinary frequency Musculoskeletal Musculoskeletal: Reports back pain; Denies extremity pain or neck pain Integumentary Denies rash or wounds Neurologic Neurologic: Denies headache(s), paresthesias or weakness EXAM Physical Exam Const Vital Signs: 03/24/23 20:35 03/24/23 20:38 03/24/23 22:55 Temperature 97.7 F L 97.7 F L Temperature Source Temporal Temporal Pulse Rate 72 72 61 Respiratory Rate 16 16 16 Blood Pressure 126/89 H 126/89 H 124/77 H Blood Pressure Mean 101 101 92 Pulse Ox 100 99 100 Oxygen Delivery Method Room Air 03/25/23 00:00 Temperature Temperature Source Pulse Rate 81 Respiratory Rate 18 Blood Pressure 121/74 H Blood Pressure Mean 89 Pulse Ox 99 Oxygen Delivery Method Positive well nourished and well developed General Appearance ED: well developed and NAD HEENT Reports moist mucous membranes normocephalic and atraumatic Eyes PERRL, EOMs intact bilaterally and conjunctivae normal General Eye ED: Yes normal appearance of both eyes Neck no lymphadenopathy and supple General: Negative for tenderness Chest Wall Chest: Negative for tenderness Resp normal respiratory effort and normal air movement Effort and Inspection: symmetric chest movement; Negative for respiratory distress Cardio regular rate, regular rhythm and no murmurs Peripheral Pulses: pulses 2+ throughout GI normal to inspection, nondistended, normoactive bowel sounds and non-tender Palpation: Negative for guarding or rebound tenderness present Back/Spine no thoracic nor lumbar tenderness Back/Spine Narrative: Right CVA tenderness with no rash. Scar from scoliosis surgery midline. Extremity normal to inspection General Extremety ED: Negative for edema or tenderness General Extremity: Negative for edema Neuro oriented x3 and no sensory deficits noted Sensorium / Orientation: awake and alert Skin no rashes or lesions noted and no wounds MDM MDM MDM Narrative Medical decision making narrative: Interventions / MDM: Differential diagnosis: Diagnosis considered but do not suspect: N/A My EKG interpretation: N/A Imaging independently reviewed and interpreted by myself: CT abdomen pelvis: Sma ll nonobstructive right nephrolithiasis, there is no current swelling ureters improved from previous. Is also read by radiology. External documents reviewed: ED visits and hospitalization from end of February and treatment from March 10 to the . She additional 4 days of Cipro from discharge. Her CT scan did note inflammatory changes right kidney and ureters consistent with pyelonephritis. Test considered but not ordered:N/A ED course: 0: After additional Toradol, still pain feels the same reporting it feels like her kidneys are being ripped out. Reviewing her records she did have CT changes of pyelonephritis with inflammation back at the end of February. There is no nephrolithiasis. Discussed with worsening pain not improving with Toradol and morphine will need to re-CT. She understands this. Additional pain medicines. She had pansensitive E. coli to antibiotics. From records noted she was initially given ceftriaxone when she was hospitalized however now notes an allergy causing swelling. She went home on Cipro. We will give IV Cipro. 0040: CT with improved findings from previous. Nonobstructive nephrolithiasis noted. She requested her dose of Xanax which she takes for anxiety. This was ordered. Proving symptoms on exam. Unclear for reason for flank pain however she had recent pyelonephritis in the same side. Culture is pending. We will continue Cipro at this time short course of pain medicines. She has appoint with her PCP in 5 days. She will keep the follow-up. Return precaution discussed. All questions were answered. Re-evaluation: stable Disposition discussed with patient/family/significant other: Patient Case discussed with consulting clinician: N/A This note was generated with [employer] dictation software. It may contain incorrect words, spelling, and punctuation that were not noted in checking the note before signing. Lab Data Attestation: I reviewed the patient's lab results. Labs: Laboratory Results - last 24 hr 03/24/23 03/24/23 21:35 21:40 WBC 9.4 RBC 4.59 Hgb 13.4 Hct 40.7 MCV 88.7 MCH 29.2 MCHC 32.9 RDW Std Deviation 41.9 RDW Coeff of Kell 12.9 Plt Count 296 MPV 10.6 Immature Gran % (Auto) 0.400 Neut % (Auto) 69.5 Lymph % (Auto) 21.1 Long % (Auto) 8.3 Eos % (Auto) 0.4 Baso % (Auto) 0.3 Absolute Neuts (auto) 6.5 Absolute Lymphs (auto) 1.99 Nucleated RBC % 0 Sodium 136 Potassium 3.3 L Chloride 103 Carbon Dioxide 27.0 Anion Gap 6 BUN 10 Creatinine 0.78 Estim Creat Clear Calc 98.73 Est GFR (MDRD) Af Amer 111 Est GFR (MDRD) Non-Af 92 BUN/Creatinine Ratio 12.8 Glucose 80 Calcium 9.6 Total Bilirubin 0.80 AST 22 ALT 39 Alkaline Phosphatase 78 Total Protein 8.9 H Albumin 4.5 Globulin 4.4 H Albumin/Globulin Ratio 1.0 Serum , Qual NEGATIVE Urine Color Yellow Urine Clarity Clear Urine pH 6.0 Ur Specific [place] 1.020 Urine Protein 15 H Urine Glucose (UA) Normal Urine Ketones 150 A* Urine Occult Blood 10 H Urine Nitrite Negative Urine Bilirubin Negative Urine Urobilinogen Normal Ur Leukocyte Esterase 25 H Urine RBC 0 SEEN Urine WBC 0-5 SEEN Ur Squamous Epith Cells 0 SEEN Urine Bacteria Not Reportable Urine Mucus 1+ Radiography Diagnostic Testing: Clinical Impression(s) from Imaging Studies Abdomen/Pelvis CT 03/24/23 23:30 IMPRESSION: 1. No evidence of perinephric soft tissue stranding or fluid. The previously seen minimal right hydronephrosis and wall thickening of the urinary bladder appears improved or resolved on limited unenhanced exam. Right nephrolithiasis, at least one tiny nonobstructing stone, similar to prior exam. 2. Mildly prominent bowel contents. 3. Multifocal postoperative changes. Electronically Signed: Armida Vann MD at 0:24 EDT , Discharge Plan Triage Chief Complaint: Flank Pain ED Provider: Nishant Marin Dx/Rx/DC Orders Clinical Impression: UTI (urinary tract infection), History of anxiety, Nephrolithiasis, Right flank pain Instructions: Urinary Tract Infections in Women, ED Flank Pain, Uncertain Cause Prescriptions: New ciprofloxacin HCl [ciprofloxacin HCl] 500 mg tablet 500 mg PO BID Qty: 14 0RF oxycodone-acetaminophen [oxycodone-acetaminophen] 5-325 mg tablet 1 tab PO Q6H PRN PRN (Reason: Pain) 3 Days Qty: 12 0RF No Action alprazolam 0.25 mg tablet 0.25 mg PO BID PRN (Reason: Anxiety) fluoxetine [Prozac] 20 mg Capsule 20 mg PO DAILY Rx Instructions: TAKE ONE CAPSULE (20MG) BY MOUTH ONCE DAILY WITH ONE 40MG CAPSULE FOR A TOTAL DAILY DOSE OF 60MG fluoxetine 40 mg capsule 40 mg PO DAILY Rx Instructions: TAKE ONE CAPSULE (20MG) BY MOUTH ONCE DAILY WITH ONE 40MG CAPSULE FOR A TOTAL DAILY DOSE OF 60MG ondansetron 4 mg tablet,disintegrating 4 mg PO Q8H PRN (Reason: Nausea) Primary Care Provider: Dario Poe Referrals: Dario Poe DO [Primary Care Provider] - 3-5 Days Activity Restrictions/Additional Instructions: Your CT scan improved swelling from previous new small nephrolithiasis. Urine with slight infection. Culture sent. Take antibiotic and pain medicine as prescribed. Follow-up with your doctor. Return if worsening symptoms. Disposition Disposition: Home, Self Care
[2023-03-24 22:00] LABS: Absolute Lymphocyte Count 1.99 X10^3/uL (0.83-4.51); Absolute Neutrophil Count 6.5 X10^3/uL (2.0-7.7); Basophil# 0.03 X10^3/uL; Basophil% 0.3 % (0-1); Eosinophil# 0.04 X10^3/uL; Eosinophils% 0.4 % (0-5); Hematocrit 40.7 % (37-47); Hemoglobin 13.4 g/dL (12.0-15.0); Lymphocyte # 1.99 X10^3/ul (0.83-4.51); Lymphocyte % 21.1 % (19-41); Mean Corp Hgb Conc 32.9 g/dL (32-36); Mean Corpuscular Hgb 29.2 pg (27.0-32.0); Mean Corpuscular Volume 88.7 fL (81-99); Mean Platelet Vol. 10.6 fl (6.2-12.0); Monocyte# 0.78 X10^3/uL; Monocyte% 8.3 % (0-10); NRBC Flagged by Analyzer 0 % (0-5); Neutrophil # 6.54 X10^3/uL (2.7-7.7); Neutrophil % 69.5 % (47-70); Platelet Count 296 K/mm3 (150-450); RBC Distribution Width CV 12.9 % (11.6-14.6); RBC Distribution Width SD 41.9 fl (35.1-43.9); Red Blood Count 4.59 M/mm3 (4.2-5.4); White Blood Count 9.4 K/mm3 (4.4-11.0)
[2023-03-24 22:01] LABS: Color, Urine Yellow (Yellow); Glucose, Dipstick Normal (Normal); Leukocyte Esterase-Dipstick 25 /ul (Negative); Nitrite-Dipstick Negative (Negative); Occult Blood-Urine 10 /ul (Negative); Protein-Dipstick 15 mg/dl (Negative); Urine Bilirubin Dipstick Negative (Negative); Urine Clarity Clear (Clear); Urine Urobilinogen Normal (Normal)
[2023-03-24] MEDS: Morphine 4 MG/ML Syringe IV ×2 (22:09→23:41)
[2023-03-24 22:12] LABS: Ketone-Dipstick 150 mg/dl (Negative)
[2023-03-24 22:15] LABS: Mucous, Urine 1+ /hpf (<or=2+); White Blood Cells 0-5 SEEN /hpf (0-5)
[2023-03-24] MEDS: Ondansetron 4 MG/2 ML Vial IV (22:15)
[2023-03-24 22:20] LABS: Internal QC Validated? YES +Cl - CLEAR BKGD; Pregnancy, Serum, hCG Quali. NEGATIVE Negative
[2023-03-24 22:25] LABS: AST(SGOT) 22 U/L (15-37); Alanine Aminotransfer ALT/SGPT 39 U/L (13-56); Albumin, Serum 4.5 g/dL (3.2-5.0); Alkaline Phosphatase 78 U/L (45-117); Anion Gap 6 (5-15); BUN 10 mg/dL (7-18); BUN/Creat Ratio 12.8 RATIO (10-20); Calcium,Total 9.6 mg/dL (8.5-10.1); Chloride 103 mmol/L (98-107); Creatinine, Serum 0.78 mg/dL (0.55-1.02); EST Glomerular Filtration Rate 92 mL/min (>60); Est Glom Filt Rate - Afr Amer 111 mL/min (>60); Estimated Creatinine Clearance 98.73 ml/min; Globulin 4.4 g/dL (2.2-4.2); Glucose 80 mg/dL (74-106); Potassium 3.3 mmol/L (3.5-5.1); Protein, Total 8.9 g/dL (6.4-8.2); Sodium Level 136 mmol/L (136-145)
[2023-03-24 22:55] VITALS: BP 124/77; PULSE 61; RESP 16; O2SAT 100
[2023-03-24] MEDS: Ketorolac 15 MG/ML Vial IV (23:17)
--- NOTE | 2023-03-24 23:30 | CT_ITS ---
EXAM: CT ABDOMEN AND PELVIS WITHOUT INTRAVENOUS CONTRAST CLINICAL INDICATION: right flank pain -- hx pyelonephritis TECHNIQUE: Helically acquired images were obtained of the abdomen and pelvis without intravenous contrast. This CT exam was performed using one or more of the following dose reduction techniques: automated exposure control, adjustment of the mA and/or kV according to patient size, and/or use of iterative reconstruction technique. RADIATION DOSE: CTDIvol = 15.32 mGy, DLP = 784.87 mGy-cm COMPARISON: March 07, 2023. There is evidence of right pyelonephritis, and cystitis and mild enhancement of the prominent right renal pelvis and ureter on the recent prior enhanced exam. FINDINGS: LOWER THORAX: Unremarkable. Lung bases are clear. No cardiomegaly. No significant pericardial effusion. ABDOMEN: LIVER: Unremarkable. Homogeneous. GALLBLADDER AND BILE DUCTS: See below. PANCREAS: Unremarkable. No focal cystic mass. SPLEEN: Unremarkable. Normal size without focal cystic or solid mass. ADRENALS: Unremarkable. No nodules. KIDNEYS AND URETERS: Tiny nonobstructing stone in the right kidney. No perinephric fluid collection. Previously seen mildly prominent right collecting system has resolved. The urinary bladder is normally distended. Normal renal size and position. STOMACH AND BOWEL: There is moderate stool in much of the the proximal two thirds of the colon, mild gas in the rectosigmoid. Mildly prominent small bowel content, no evidence of obstruction. No focal inflammatory change. PELVIS: APPENDIX: Appendectomy changes are again seen. Cholecystectomy. BLADDER: Unremarkable. REPRODUCTIVE: Bilateral tubal ligation clips. No suspicious adnexal lesion. ABDOMEN and PELVIS: INTRAPERITONEAL SPACE: Unremarkable. No ascites or other fluid collection. No free air. BONES/JOINTS: There are artifacts from extensive postoperative changes and hardware at at least T9-L2, not fully included superiorly. No suspicious lytic or blastic abnormality. SOFT TISSUES: Unremarkable. No discrete abdominal or pelvic wall hernia. VASCULATURE: Unremarkable. Abdominal aorta is non-dilated. LYMPH NODES: Unremarkable. No enlarged lymph nodes. CT/Abdomen/Pelvis without Cont IMPRESSION: 1. No evidence of perinephric soft tissue stranding or fluid. The previously seen minimal right hydronephrosis and wall thickening of the urinary bladder appears improved or resolved on limited unenhanced exam. Right nephrolithiasis, at least one tiny nonobstructing stone, similar to prior exam. 2. Mildly prominent bowel contents. 3. Multifocal postoperative changes. Electronically Signed: Armida Vann MD at 0:24 EDT ,
[2023-03-24] MEDS: Potassium Chloride Oral Tablet 20 MEQ 40 MEQ PO (23:37)
[2023-03-24] MEDS: Ciprofloxacin 400 MG/200 ML BAG 200 MG IV (23:43)
[2023-03-25] VITALS: BP 121/74; PULSE 81; RESP 18; O2SAT 99
[2023-03-25] MEDS: ALPRAZolam 0.5 MG Tablet 0.25 MG PO (00:27)
[2023-03-25 00:53] VITALS: BP 122/60; PULSE 81; RESP 18; O2SAT 96
== END 2023-03-25 00:54 | disposition home or self-care (01) ==
PROVIDERS: Emergency Provider Emergency Medicine; PCP Student in an Organized Health Care Education/Training Program; Visit Provider Emergency Medicine
DX: N39.0 Urinary tract infection, site not specified (principal); N20.0 Calculus of kidney; F41.9 Anxiety disorder, unspecified; Z90.49 Acquired absence of other specified parts of digestive tract; Z79.899 Other long term (current) drug therapy
CPT/HCPCS: 74176; 80053; 81001; 84703; 85025; 87086; 87088; 96365; 96375; 96376; 99284; A4216; J0744; J2405

== ENCOUNTER 2023-04-27 14:42 | Emergency (ER) | payer MEDICAID, SELFPAY ==
[2023-04-27 14:46] VITALS: BP 138/82; PULSE 84; RESP 18; TEMP 36.5; O2SAT 100; BMI 32.5
[2023-04-27 15:35] LABS: Internal QC Validated? YES +Cl - CLEAR BKGD; Pregnancy, Serum, hCG Quali. NEGATIVE Negative
[2023-04-27 17:24] VITALS: BP 119/75; PULSE 58; RESP 14; O2SAT 100
[2023-04-27 17:34] LABS: Bacteria 0 SEEN /hpf (None Seen); Mucous, Urine 0 SEEN /hpf (<or=2+)
[2023-04-27 17:37] LABS: Color, Urine Yellow (Yellow); Glucose, Dipstick Normal (Normal); Ketone-Dipstick Negative (Negative); Leukocyte Esterase-Dipstick Negative /ul (Negative); Nitrite-Dipstick Negative (Negative); Occult Blood-Urine 25 /ul (Negative); Protein-Dipstick Negative (Negative); Specific Gravity, Urine 1.015 (1.002-1.030); Urine Bilirubin Dipstick Negative (Negative); Urine Clarity Sl. Cloudy (Clear); Urine Urobilinogen Normal (Normal)
--- NOTE | 2023-04-27 17:41 | EDS_ITS ---
HPI <ZENOBIA Chakraborty - Last Filed: 04/27/23 19:56> History of Present Illness Chief Complaint: Flank Pain Narrative Narrative: Patient is a 28-year-old female with history of iron deficiency anemia, cellulitis MRSA, chronic back pain secondary scoliosis presents to the emergency department for right-sided flank pain. Patient was admitted March 2023. She was admitted for pyelonephritis. Patient was treated with IV Cipro. Patient states of the last 2 days, she had ongoing nausea, vomiting as well as some right-sided flank pain that is also radiated to the left lower back. Patient states to have some dysuria. No fever or chills. She is certain she is having pyelonephritis again. PFSH <ZENOBIA Chakraborty - Last Filed: 04/27/23 19:56> [facility] Medical History Anxiety and depression Back problem Gallstones Kidney stones Home Medications alprazolam 0.25 mg tablet 0.25 mg PO BID PRN Anxiety 12/08/22 [History Last Taken 03/09/23] fluoxetine 20 mg capsule (Prozac) 20 mg PO DAILY ANXIETY 12/08/22 [History Last Taken 03/08/23] fluoxetine 40 mg capsule 40 mg PO DAILY ANXIETY 03/10/23 [History Last Taken 03/08/23] ondansetron 4 mg disintegrating tablet 4 mg PO Q8H PRN Nausea 03/10/23 [History Last Taken 03/09/23] ciprofloxacin HCl 500 mg tablet 500 mg PO BID #14 TABLETS 03/25/23 [Rx Last Taken Unknown] oxycodone-acetaminophen 5 mg-325 mg tablet 1 tab PO Q6H PRN PRN Pain 3 days #12 TABLETS 03/25/23 [Rx Last Taken Unknown] dicyclomine 20 mg tablet 20 mg PO BID #14 tabs 04/27/23 [Rx Last Taken Unknown] ondansetron 4 mg disintegrating tablet 4 mg PO Q8H PRN PRN Nausea #10 tabs 04/27/23 [Rx Last Taken Unknown] Allergy/AdvReac Type Severity Reaction Status Date / Time vancomycin Allergy Severe Anaphylaxis Verified 04/27/23 14:45 ceftriaxone [From Rocephin] Allergy Mild Swelling Verified 04/27/23 14:45 Family History Mother Diabetes Hypertension Father Hypertension Grandmother Diabetes Surgical History History of appendectomy History of back surgery History of tubal ligation S/P ERCP S/P laparoscopic cholecystectomy Social History household members: children and other details: fiance number of children: 3 Smoking Status: Never smoker alcohol intake: never substance use type: does not use do you feel safe at home: Yes additional social history: DOES NOT USE ASPIRIN DOES USE IBUPROFEN ROS <ZENOBIA Chakraborty - Last Filed: 04/27/23 19:56> ROS ED ROS Narrative Constitutional: Negative for fever, chills, weight loss, weakness Eyes: Negative for vision loss, vision change, double vision ENT: Negative for any sore throat, ear pain, congestion Cardiovascular: Negative for any chest pain, tightness, palpitations Respiratory: Negative for any cough, sputum production, hemoptysis, dyspnea, dyspnea on exertion, orthopnea Gastrointestinal: Negative for any abdominal pain, nausea, vomiting, diarrhea, constipation, blood in stool, blood in vomit : Negative for any urinary frequency, dysuria, retention, blood in urine Muscle skeletal: Negative for any muscle joint pain, stiffness, myalgias, arthralgias, neck pain. Positive for bilateral flank pain Neurological: Negative for any headache, syncope, numbness or tingling, dizziness Skin: Negative for any rashes, lumps, itching, abrasions, lacerations Psychiatric: Negative for any depression, anxiety, stress, suicidal ideation, homicidal ideation Hematologic: Negative for any easy bruising, excessive bruising, easy bleeding Allergies: Negative for any eczema, hives, rash EXAM <ZENOBIA Chakraborty - Last Filed: 04/27/23 19:56> Physical Exam Narrative Exam Narrative: Vital signs reviewed. HEET: Head normocephalic atraumatic, TMs clear bilaterally. Posterior pharynx is clear, moist mucous membranes. Nares clear bilaterally. Neck: Supple with no lymphadenopathy or tenderness. No signs of meningismus, negative jolt sign. Cardiac: Regular rate and rhythm no murmurs gallops or rubs, equal peripheral pulses bilaterally. Respiratory: Lungs clear to auscultation bilaterally. No chest tenderness. Abdomen: Soft, nontender, nondistended. No abdominal bruit or pulsatile masses. No hepatosplenomegaly Extremities: No peripheral edema, no signs of gross trauma or deformity. Active full range of motion of all extremities. Neuro: Cranial nerves II through XII intact, no focal neurological deficits. Skin: Clean dry and intact with no rash, purpura, petechiae, vesicles or pustules. Backs/flank: positive for bilateral CVA tenderness, no midline spinal tenderness, no deformity. Psych: Normal mood and affect. No SI, HI or acute psychosis. Const Vital Signs: 04/27/23 14:46 04/27/23 17:24 Temperature 97.7 F L Temperature Source Temporal Pulse Rate 84 58 L Respiratory Rate 18 14 Blood Pressure 138/82 H 119/75 Blood Pressure Mean 100 89 Pulse Ox 100 100 Oxygen Delivery Method Room Air Room Air <Colby Kirkpatrick MD - Last Filed: 04/27/23 20:06> Physical Exam Const Vital Signs: 04/27/23 14:46 04/27/23 17:24 Temperature 97.7 F L Temperature Source Temporal Pulse Rate 84 58 L Respiratory Rate 18 14 Blood Pressure 138/82 H 119/75 Blood Pressure Mean 100 89 Pulse Ox 100 100 Oxygen Delivery Method Room Air Room Air MDM <ZENOBIA Chakraborty - Last Filed: 04/27/23 19:56> [facility] Lab Data Labs: Laboratory Results - last 24 hr 04/27/23 04/27/23 15:03 17:30 WBC 4.8 RBC 4.39 Hgb 13.0 Hct 39.1 MCV 89.1 MCH 29.6 MCHC 33.2 RDW Std Deviation 39.8 RDW Coeff of Ekll 12.1 Plt Count 219 MPV 11.6 Immature Gran % (Auto) 0.200 Neut % (Auto) 60.5 Lymph % (Auto) 29.7 [place] % (Auto) 7.5 Eos % (Auto) 1.7 Baso % (Auto) 0.4 Absolute Neuts (auto) 2.9 Absolute Lymphs (auto) 1.42 Nucleated RBC % 0 Sodium 138 Potassium 4.4 Chloride 107 Carbon Dioxide 26.0 Anion Gap 5 BUN 10 Creatinine 0.68 Estim Creat Clear Calc 113.25 Est GFR (MDRD) Af Amer 130 Est GFR (MDRD) Non-Af 108 BUN/Creatinine Ratio 14.7 Glucose 94 Calcium 8.8 Total Bilirubin 0.30 AST 16 ALT 21 Alkaline Phosphatase 71 Total Protein 7.4 Albumin 4.0 Globulin 3.4 Albumin/Globulin Ratio 1.2 Lipase 36 Serum , Qual NEGATIVE Urine Color Yellow Urine Clarity Sl. Cloudy Urine pH 8.0 Ur Specific [place] 1.015 Urine Protein Negative Urine Glucose (UA) Normal Urine Ketones Negative Urine Occult Blood 25 H Urine Nitrite Negative Urine Bilirubin Negative Urine Urobilinogen Normal Ur Leukocyte Esterase Negative Urine RBC 0-5 SEEN Urine WBC 0-5 SEEN Ur Squamous Epith Cells 0-5 SEEN Urine Bacteria 0 SEEN Urine Mucus 0 SEEN Radiography Diagnostic Testing: Clinical Impression(s) from Imaging Studies Abdomen/Pelvis CT 04/27/23 19:17 IMPRESSION: Right nephrolithiasis without evidence for renal obstruction or mass.. Postop change status post bilateral tubal ligation cholecystectomy and appendectomy No other significant abnormalities Electronically Signed: Jagdish Ceron MD at 19:45 EDT , Treatment and Re-Evaluation :: Patient appears generally well, patient appears nontoxic, vital signs are stable. Presenting to the emergency department with complaints of bilateral flank pain, dysuria, concern for urinary tract infection again. Last Cipro dose was multiple weeks ago. She will receive some basic laboratory evaluation, as well as urinalysis concerning for any UTI. Patient will receive IV fluids, Zofran as well as Toradol. Patient CBC was unremarkable, patient's chemistries were unremarkable, patient's not . Negative for any renal efficiency. Urinalysis had 25 blood, negative for any white blood cells, red blood cells, bacteria. Patient did receive a CT scan concerning for any obstructing uropathy, hydronephrosis, pyelonephrosis, CT scan showed right stone without evidence of renal obstruction or mass. Postop changes status post bilateral tubal ligation cholecystectomy and affect ectomy. No other significant abnormalities. At this time, patient will need to follow-up outpatient. She verbally understands, she instructed return for any worsening symptoms. Patient stable for discharge <Colby Kirkpatrick MD - Last Filed: 04/27/23 20:06> MDM MDM Narrative Medical decision making narrative: Dr. Kirkpatrick: I have personally performed a face to face assessment of the patient and have reviewed the SARAHI Note. I performed a substantive portion of the visit including all aspects of the following. My hull findings include: History is right flank pain. Feels as if kidney on right is being cut out. History of pyelonephritis. Exam is afebrile. Vital signs noted. Regular rate and rhythm. Lungs clear to auscultation bilaterally. Abdomen soft and nontender with normal active bowel sounds. Medical Decision Making: Check labs. Check UA. No signs of infection. I do not feel antibiotics are indicated. I reviewed the CT radiology report of the abdomen and pelvis without contrast which shows a nonobstructing right renal sto ne, otherwise grossly unremarkable. I feel she be discharged safely home with follow-up and that she does not require observation at this time. Disposition is discharged home in stable condition. Other additions or changes: [None] History & Record Review Discussion w/independent historian: Patient Additional record(s) reviewed:: Prior ED visit Lab Data Attestation: I reviewed the patient's lab results. Labs: Laboratory Results - last 24 hr 04/27/23 04/27/23 15:03 17:30 WBC 4.8 RBC 4.39 Hgb 13.0 Hct 39.1 MCV 89.1 MCH 29.6 MCHC 33.2 RDW Std Deviation 39.8 RDW Coeff of Kell 12.1 Plt Count 219 MPV 11.6 Immature Gran % (Auto) 0.200 Neut % (Auto) 60.5 Lymph % (Auto) 29.7 [place] % (Auto) 7.5 Eos % (Auto) 1.7 Baso % (Auto) 0.4 Absolute Neuts (auto) 2.9 Absolute Lymphs (auto) 1.42 Nucleated RBC % 0 Sodium 138 Potassium 4.4 Chloride 107 Carbon Dioxide 26.0 Anion Gap 5 BUN 10 Creatinine 0.68 Estim Creat Clear Calc 113.25 Est GFR (MDRD) Af Amer 130 Est GFR (MDRD) Non-Af 108 BUN/Creatinine Ratio 14.7 Glucose 94 Calcium 8.8 Total Bilirubin 0.30 AST 16 ALT 21 Alkaline Phosphatase 71 Total Protein 7.4 Albumin 4.0 Globulin 3.4 Albumin/Globulin Ratio 1.2 Lipase 36 Serum , Qual NEGATIVE Urine Color Yellow Urine Clarity Sl. Cloudy Urine pH 8.0 Ur Specific [place] 1.015 Urine Protein Negative Urine Glucose (UA) Normal Urine Ketones Negative Urine Occult Blood 25 H Urine Nitrite Negative Urine Bilirubin Negative Urine Urobilinogen Normal Ur Leukocyte Esterase Negative Urine RBC 0-5 SEEN Urine WBC 0-5 SEEN Ur Squamous Epith Cells 0-5 SEEN Urine Bacteria 0 SEEN Urine Mucus 0 SEEN Radiography Diagnostic Testing: Clinical Impression(s) from Imaging Studies Abdomen/Pelvis CT 04/27/23 19:17 IMPRESSION: Right nephrolithiasis without evidence for renal obstruction or mass.. Postop change status post bilateral tubal ligation cholecystectomy and appendectomy No other significant abnormalities Electronically Signed: Jagdish Ceron MD at 19:45 EDT , Discharge Plan Triage Chief Complaint: Flank Pain ED Midlevel Provider: Gil Weinstein ED Provider: Colby Kirkpatrick Dx/Rx/DC Orders Clinical Impression: Acute flank pain Instructions: Abdominal Pain, ED Flank Pain, Uncertain Cause Prescriptions: New ondansetron 4 mg tablet,disintegrating 4 mg PO Q8H PRN PRN (Reason: Nausea) Qty: 10 0RF dicyclomine 20 mg tablet 20 mg PO BID Qty: 14 0RF No Action alprazolam 0.25 mg tablet 0.25 mg PO BID PRN (Reason: Anxiety) fluoxetine [Prozac] 20 mg Capsule 20 mg PO DAILY Rx Instructions: TAKE ONE CAPSULE (20MG) BY MOUTH ONCE DAILY WITH ONE 40MG CAPSULE FOR A TOTAL DAILY DOSE OF 60MG fluoxetine 40 mg capsule 40 mg PO DAILY Rx Instructions: TAKE ONE CAPSULE (20MG) BY MOUTH ONCE DAILY WITH ONE 40MG CAPSULE FOR A TOTAL DAILY DOSE OF 60MG ondansetron 4 mg tablet,disintegrating 4 mg PO Q8H PRN (Reason: Nausea) ciprofloxacin HCl [ciprofloxacin HCl] 500 mg tablet 500 mg PO BID Qty: 14 0RF oxycodone-acetaminophen [oxycodone-acetaminophen] 5-325 mg tablet 1 tab PO Q6H PRN PRN (Reason: Pain) 3 Days Qty: 12 0RF Primary Care Provider: Dario Poe Referrals: Dario Poe DO [Primary Care Provider] - Activity Restrictions/Additional Instructions: You had normal blood work today, urinalysis showed no blood, no bacteria, no white blood cells. Your CT scan showed a kidney stone that was in the kidney, this does not cause discomfort. No other acute process. Disposition Disposition: Home, Self Care
[2023-04-27 17:47] LABS: Red Blood Cells-Urine 0-5 SEEN /hpf (0-5); Squamous Epithelial Cells - UA 0-5 SEEN /hpf (5-10); White Blood Cells 0-5 SEEN /hpf (0-5)
[2023-04-27] MEDS: Ondansetron 4 MG/2 ML Vial IV (17:49)
[2023-04-27] MEDS: 0.9% Normal Saline (1000mL) 1,000 ML 1000 ML IV (17:49)
[2023-04-27] MEDS: Ketorolac 15 MG/ML Vial IV ×2 (17:50→19:25)
[2023-04-27 17:56] LABS: Absolute Lymphocyte Count 1.42 X10^3/uL (0.83-4.51); Absolute Neutrophil Count 2.9 X10^3/uL (2.0-7.7); Basophil# 0.02 X10^3/uL; Basophil% 0.4 % (0-1); Eosinophil# 0.08 X10^3/uL; Eosinophils% 1.7 % (0-5); Hematocrit 39.1 % (37-47); Lymphocyte # 1.42 X10^3/ul (0.83-4.51); Lymphocyte % 29.7 % (19-41); Mean Corp Hgb Conc 33.2 g/dL (32-36); Mean Corpuscular Hgb 29.6 pg (27.0-32.0); Mean Corpuscular Volume 89.1 fL (81-99); Mean Platelet Vol. 11.6 fl (6.2-12.0); Monocyte# 0.36 X10^3/uL; Monocyte% 7.5 % (0-10); NRBC Flagged by Analyzer 0 % (0-5); Neutrophil # 2.89 X10^3/uL (2.7-7.7); Neutrophil % 60.5 % (47-70); Platelet Count 219 K/mm3 (150-450); RBC Distribution Width CV 12.1 % (11.6-14.6); RBC Distribution Width SD 39.8 fl (35.1-43.9); Red Blood Count 4.39 M/mm3 (4.2-5.4); White Blood Count 4.8 K/mm3 (4.4-11.0)
[2023-04-27 18:16] LABS: ALB/GLOB Ratio 1.2 RATIO (0.9-2.4); AST(SGOT) 16 U/L (15-37); Alanine Aminotransfer ALT/SGPT 21 U/L (13-56); Alkaline Phosphatase 71 U/L (45-117); Anion Gap 5 (5-15); BUN 10 mg/dL (7-18); BUN/Creat Ratio 14.7 RATIO (10-20); Calcium,Total 8.8 mg/dL (8.5-10.1); Chloride 107 mmol/L (98-107); Creatinine, Serum 0.68 mg/dL (0.55-1.02); EST Glomerular Filtration Rate 108 mL/min (>60); Est Glom Filt Rate - Afr Amer 130 mL/min (>60); Estimated Creatinine Clearance 113.25 ml/min; Globulin 3.4 g/dL (2.2-4.2); Glucose 94 mg/dL (74-106); Lipase 36 U/L (13-75); Potassium 4.4 mmol/L (3.5-5.1); Protein, Total 7.4 g/dL (6.4-8.2); Sodium Level 138 mmol/L (136-145)
--- NOTE | 2023-04-27 19:17 | CT_ITS ---
STUDY: CT ABDOMEN AND PELVIS WITHOUT CONTRAST REASON FOR EXAM: Female, 28 years old. Pain RADIATION DOSAGE (If Supplied By Facility): CTDIvol = ( 14.99 ) mGy, DLP = ( 797.94 ) mGycm TECHNIQUE: Transaxial images were obtained from the dome of the diaphragm to the symphysis pubis without oral contrast, and without intravenous contrast. Sagittal and coronal images were reconstructed. Individualized dose optimization techniques were used for this CT. COMPARISON: None. FINDINGS: The visualized lung bases are unremarkable. The visualized portions of the heart are within normal limits. Normal liver. Normal gallbladder and extrahepatic biliary system. Normal spleen. Normal pancreas. Normal bilateral adrenal glands. Tiny nonobstructing right renal calculus. No evidence for renal obstruction or mass. Normal visualized stomach. Normal small intestine. Normal colon. Postop change status post appendectomy. Normal abdominal aorta. Normal inferior vena cava. Normal retroperitoneum. Normal urinary bladder. Postop change status post bilateral tubal ligation Normal abdominal wall. Postsurgical change status post thoracolumbar scoliosis correction surgery CT/Abdomen/Pelvis without Cont IMPRESSION: Right nephrolithiasis without evidence for renal obstruction or mass.. Postop change status post bilateral tubal ligation cholecystectomy and appendectomy No other significant abnormalities Electronically Signed: Jagdish Ceron MD at 19:45 EDT ,
== END 2023-04-27 20:05 | disposition home or self-care (01) ==
PROVIDERS: Nurse Practitioner; Emergency Provider Emergency Medicine; PCP Student in an Organized Health Care Education/Training Program; Visit Provider Emergency Medicine
DX: R10.9 Unspecified abdominal pain (principal); N20.0 Calculus of kidney; M54.9 Dorsalgia, unspecified; G89.29 Other chronic pain
CPT/HCPCS: 74176; 80053; 81001; 83690; 84703; 85025; 96361; 96374; 96375; 96376; 99282; J7030; A4216; J2405

== ENCOUNTER 2023-07-19 18:09 | Emergency (ER) | payer MEDICAID, SELFPAY ==
[2023-07-19 18:10] VITALS: BP 110/77; PULSE 67; RESP 15; TEMP 36.4; O2SAT 100; BMI 32.1
--- NOTE | 2023-07-19 19:48 | CT_ITS ---
STUDY: CT ABDOMEN AND PELVIS WITH CONTRAST REASON FOR EXAM: Female, 28 years old. Right flank pain RADIATION DOSAGE (If Supplied By Facility): CTDIvol = ( 22.40 ) mGy, DLP = ( 1226.33 ) mGycm TECHNIQUE: Transaxial images were obtained from the dome of the diaphragm to the symphysis pubis without oral contrast. IV 100mL [id number]-300 was administered. Sagittal and coronal images were reconstructed. Individualized dose optimization techniques were used for this CT. COMPARISON: April 27, 2023. FINDINGS: The visualized lung bases are unremarkable. The visualized portions of the heart are within normal limits. There is a small hyperattenuated nodule in the subcutaneous fat of the right lateral lower chest wall measuring approximately 2 x 2.75 cm which has the appearance of hematoma although possibility of hemorrhagic neoplasm not excluded. This mass is not changed appreciably since previous study of April 27, 2023 Normal liver. Gallbladder not visualized which may be consistent with prior cholecystectomy. Normal spleen. Normal pancreas. Normal bilateral adrenal glands. Tiny nonobstructing right renal calculus without evidence for hydronephrosis or mass. Normal left kidney. Normal visualized stomach. Normal small intestine. Normal colon. No evidence for acute appendicitis Normal abdominal aorta. Normal inferior vena cava. Normal retroperitoneum. Normal urinary bladder. Tiny left ovarian cyst is noted . There is prominence of the pelvic vasculature slightly more pronounced on the left which may be consistent with nonspecific pelvic congestive type changes. Postsurgical changes status post bilateral tubal ligation Normal abdominal wall. Postsurgical changes status post multilevel posterior fusion of the thoracolumbar spine CT/Abdomen/Pelvis W IV Cont ONLY IMPRESSION: Postsurgical changes status post cholecystectomy and appendectomy as well as bilateral tubal ligation Right nephrolithiasis without evidence for hydronephrosis or ureteral calculus Incidental finding of hyperattenuating soft tissue nodule in the right lateral lower chest wall possibly representing hematoma although hemorrhagic neoplasm not excluded. Clinical correlation recommended. Clinical correlation recommended Other findings as above Electronically Signed: Jagdish Ceron MD at 22:22 EST ,
--- NOTE | 2023-07-19 19:50 | EDS_ITS ---
HPI History of Present Illness Chief Complaint: Abd Pain Informant: patient Narrative Narrative: Complains primarily of right flank area pain for about a week. She states she just has not felt well for the past week. Sounds like she has been nauseated but really has not vomited. She feels a little constipated but has not moved her bowels. She has not checked her temperature but has felt as though she has had a fever with hot and cold chills. She states that when she urinates her kidney is mostly on the right side seem to squeeze. She does not actually have dysuria. But she states something feels different. No odor. She has no vaginal discharge. She does have a prior tubal ligation. She is also had appendectomy and cholecystectomy. She has never had a kidney stone but was told that there were stones up in her kidney on prior scans. She has had UTIs and pyelonephritis in the past. [facility] Medical History Anxiety and depression Back problem Gallstones Kidney stones Home Medications alprazolam 0.25 mg tablet 0.25 mg PO BID PRN Anxiety 12/08/22 [History Last Taken 03/09/23] fluoxetine 20 mg capsule (Prozac) 20 mg PO DAILY ANXIETY 12/08/22 [History Last Taken 03/08/23] fluoxetine 40 mg capsule 40 mg PO DAILY ANXIETY 03/10/23 [History Last Taken 03/08/23] ondansetron 4 mg disintegrating tablet 4 mg PO Q8H PRN Nausea 03/10/23 [History Last Taken 03/09/23] ciprofloxacin HCl 500 mg tablet 500 mg PO BID #14 TABLETS 03/25/23 [Rx Last Taken Unknown] oxycodone-acetaminophen 5 mg-325 mg tablet 1 tab PO Q6H PRN PRN Pain 3 days #12 TABLETS 03/25/23 [Rx Last Taken Unknown] dicyclomine 20 mg tablet 20 mg PO BID #14 tabs 04/27/23 [Rx Last Taken Unknown] ondansetron 4 mg disintegrating tablet 4 mg PO Q8H PRN PRN Nausea #10 tabs 04/27/23 [Rx Last Taken Unknown] naproxen 500 mg tablet (Naprosyn) 500 mg PO BID PRN pain #20 tabs 12/11/23 [Rx Last Taken Unknown] Allergy/AdvReac Type Severity Reaction Status Date / Time vancomycin Allergy Severe Anaphylaxis Verified 04/27/23 14:45 ceftriaxone [From Rocephin] Allergy Mild Swelling Verified 04/27/23 14:45 Family History Mother Diabetes Hypertension Father Hypertension Grandmother Diabetes Surgical History History of appendectomy History of back surgery History of tubal ligation S/P ERCP S/P laparoscopic cholecystectomy Social History household members: children and other details: fiance number of children: 3 Smoking Status: Never smoker alcohol intake: never substance use type: does not use do you feel safe at home: Yes additional social history: DOES NOT USE ASPIRIN DOES USE IBUPROFEN ROS ROS ED Constitutional Constitutional ED: Reports chills and subjective ENT ENT ED: Denies rhinorrhea or sore throat Cardiovascular Cardiovascular: Denies chest pain or palpitations Respiratory/Chest Respiratory/Chest: Denies cough or dyspnea Gastrointestinal Gastrointestinal: Reports abdominal pain and constipation; Denies vomiting Genitourinary Genitourinary ED: Reports other Details: See history of present illness. ; Denies urinary frequency Musculoskeletal Musculoskeletal: Denies myalgias Integumentary Denies rash Neurologic Neurologic: Denies headache(s) Psychiatric Psychiatric: Reports anxiety Endocrine Endocrinology: Denies polydipsia or polyuria Hematologic/Lymphatic Hematologic/Lymphatic: Denies easy bleeding, easy bruising or lymphadenopathy Allergic/Immunologic Allergic/Immunologic ED: Denies urticaria EXAM Physical Exam Narrative Exam Narrative: CONSTITUTIONAL: Patient is nontoxic in appearance. The patient looks comfortable. HEENT: No notable trauma. Mucous membranes mildly dry. No sinus tenderness. No indication of pain with swallowing. EYES: No conjunctival injection. No icterus. CARDIOVASCULAR: Regular rate. Regular rhythm. No notable murmur. No JVD. RESPIRATORY: No respiratory distress. Breathing is unlabored. No wheezes. No rhonchi. No rales. No pain with a deep breath. Well-healed scar in the right lateral chest wall from prior MRSA infection. No indication of infection now at all. GASTROINTESTINAL: Not distended. Bowel sounds are normal. She states sometimes she has pain in the upper abdomen and right upper quadrant but there is no tenderness there now. No rebound or guarding. I feel no mass. GENITOURINARY: No tenderness over the bladder. Does have some right-sided CVA tenderness. But she also has paraspinal tenderness even with light touch down the right paraspinal all the way to the sacrum. There are no skin changes. MUSCULOSKELETAL: Atraumatic. No peripheral edema. NEUROLOGICAL: Patient is alert and appropriate. No focal deficit noted. SKIN: No noted rashes. No diaphoresis. PSYCHIATRIC: Patient is calm. Mood is appropriate. Const Vital Signs: 07/19/23 18:10 07/19/23 22:11 Temperature 97.5 F L Temperature Source Temporal Pulse Rate 67 68 Respiratory Rate 15 15 Blood Pressure 110/77 100/66 Blood Pressure Mean 88 77 Pulse Ox 100 98 Oxygen Delivery Method Room Air Room Air MDM MDM MDM Narrative Medical decision making narrative: CBC is normal. Patient's electrolytes are normal. Patient's liver function test are normal. Patient's lipase is normal. Patient's urine is clear. Ketones are negative. Nitrites are negative. 100 leukocyte Estrace. No sign of acute infection. My independent interpretation of the patient's CT of the abdomen shows no sign of obstruction. Kidneys do not look inflamed. I see no dilated ureter. There is a left ovarian cyst. Final reading is pending. Final reading shows no significant acute process. They do note of changes in the right chest wall but this is related to her prior surgery. There is no complaint in this area nor there clinical findings of any infection or acute process. Patient has mostly right flank pain. But she also has tenderness even with skin palpation. Although she has tenderness at the costovertebral angle, she has paraspinal tenderness diffusely. This may very well be back issues. Nonsteroidal anti-inflammatories would be appropriate for this. If she develops fevers, vomiting, worsening symptoms or new symptoms we would encourage her to return. Lab Data Attestation: I reviewed the patient's lab results. Labs: Laboratory Results - last 24 hr 07/19/23 07/19/23 20:25 21:45 WBC 10.5 RBC 4.62 Hgb 13.4 Hct 41.1 MCV 89.0 MCH 29.0 MCHC 32.6 RDW Std Deviation 39.9 RDW Coeff of Kell 12.3 Plt Count 233 MPV 11.1 Immature Gran % (Auto) 0.700 Neut % (Auto) 77.5 H Lymph % (Auto) 16.0 L Collier % (Auto) 5.1 Eos % (Auto) 0.4 Baso % (Auto) 0.3 Absolute Neuts (auto) 8.2 H Absolute Lymphs (auto) 1.68 Nucleated RBC % 0 Sodium 137 Potassium 3.7 Chloride 105 Carbon Dioxide 26.0 Anion Gap 6 BUN 10 Creatinine 0.79 Estim Creat Clear Calc 101.26 Est GFR (MDRD) Af Amer 110 Est GFR (MDRD) Non-Af 91 BUN/Creatinine Ratio 12.7 Glucose 87 Calcium 9.1 Total Bilirubin 0.50 AST 20 ALT 20 Alkaline Phosphatase 69 Total Protein 7.8 Albumin 3.8 Globulin 4.0 Albumin/Globulin Ratio 1.0 Lipase 23 Urine Color Yellow Urine Clarity Clear Urine pH 6.0 Ur Specific [place] 1.010 Urine Protein 15 H Urine Glucose (UA) Normal Urine Ketones 5 H Urine Occult Blood Negative Urine Nitrite Negative Urine Bilirubin Negative Urine Urobilinogen Normal Ur Leukocyte Esterase 100 H Urine RBC 0-5 SEEN Urine WBC 0-5 SEEN Ur Squamous Epith Cells 5-10 SEEN Urine Bacteria RARE Urine Mucus RARE Radiography Diagnostic Testing: Clinical Impression(s) from Imaging Studies Abdomen/Pelvis CT 07/19/23 19:48 IMPRESSION: Postsurgical changes status post cholecystectomy and appendectomy as well as bilateral tubal ligation Right nephrolithiasis without evidence for hydronephrosis or ureteral calculus Incidental finding of hyperattenuating soft tissue nodule in the right lateral lower chest wall possibly representing hematoma although hemorrhagic neoplasm not excluded. Clinical correlation recommended. Clinical correlation recommended Other findings as above Electronically Signed: Jagdish Ceron MD at 22:22 EST Reading Location ID and State: [facility] / [place] Tel , Service support , Discharge Plan Triage Chief Complaint: Abd Pain ED Provider: Olu De Leon Dx/Rx/DC Orders Clinical Impression: Acute right flank pain, Pain in right paraspinal region Instructions: ED Flank Pain, Uncertain Cause Prescriptions: New naproxen [Naprosyn] 500 mg tablet 500 mg PO BID PRN (Reason: pain) Qty: 20 0RF No Action alprazolam 0.25 mg tablet 0.25 mg PO BID PRN (Reason: Anxiety) fluoxetine [Prozac] 20 mg Capsule 20 mg PO DAILY Rx Instructions: TAKE ONE CAPSULE (20MG) BY MOUTH ONCE DAILY WITH ONE 40MG CAPSULE FOR A TOTAL DAILY DOSE OF 60MG fluoxetine 40 mg capsule 40 mg PO DAILY Rx Instructions: TAKE ONE CAPSULE (20MG) BY MOUTH ONCE DAILY WITH ONE 40MG CAPSULE FOR A TOTAL DAILY DOSE OF 60MG ondansetron 4 mg tablet,disintegrating 4 mg PO Q8H PRN (Reason: Nausea) ciprofloxacin HCl [ciprofloxacin HCl] 500 mg tablet 500 mg PO BID Qty: 14 0RF oxycodone-acetaminophen [oxycodone-acetaminophen] 5-325 mg tablet 1 tab PO Q6H PRN PRN (Reason: Pain) 3 Days Qty: 12 0RF ondansetron 4 mg tablet,disintegrating 4 mg PO Q8H PRN PRN (Reason: Nausea) Qty: 10 0RF dicyclomine 20 mg tablet 20 mg PO BID Qty: 14 0RF Primary Care Provider: Dario Poe Referrals: Dario Poe, DO [Primary Care Provider] - 3-5 Days if not improving Disposition Disposition: Home, Self Care
[2023-07-19] MEDS: Ondansetron 4 MG/2 ML Vial IV (20:42)
[2023-07-19] MEDS: Morphine 4 MG/ML Syringe IV ×2 (20:42→22:08)
[2023-07-19 20:51] LABS: Absolute Lymphocyte Count 1.68 X10^3/uL (0.83-4.51); Absolute Neutrophil Count 8.2 X10^3/uL (2.0-7.7); Basophil# 0.03 X10^3/uL; Basophil% 0.3 % (0-1); Eosinophil# 0.04 X10^3/uL; Eosinophils% 0.4 % (0-5); Hematocrit 41.1 % (37-47); Hemoglobin 13.4 g/dL (12.0-15.0); Lymphocyte # 1.68 X10^3/ul (0.83-4.51); Mean Corp Hgb Conc 32.6 g/dL (32-36); Mean Platelet Vol. 11.1 fl (6.2-12.0); Monocyte# 0.54 X10^3/uL; Monocyte% 5.1 % (0-10); NRBC Flagged by Analyzer 0 % (0-5); Neutrophil # 8.15 X10^3/uL (2.7-7.7); Neutrophil % 77.5 % (47-70); Platelet Count 233 K/mm3 (150-450); RBC Distribution Width CV 12.3 % (11.6-14.6); RBC Distribution Width SD 39.9 fl (35.1-43.9); Red Blood Count 4.62 M/mm3 (4.2-5.4); White Blood Count 10.5 K/mm3 (4.4-11.0)
[2023-07-19 21:02] LABS: AST(SGOT) 20 U/L (15-37); Alanine Aminotransfer ALT/SGPT 20 U/L (13-56); Albumin, Serum 3.8 g/dL (3.2-5.0); Alkaline Phosphatase 69 U/L (45-117); Anion Gap 6 (5-15); BUN 10 mg/dL (7-18); BUN/Creat Ratio 12.7 RATIO (10-20); Calcium,Total 9.1 mg/dL (8.5-10.1); Chloride 105 mmol/L (98-107); Creatinine, Serum 0.79 mg/dL (0.55-1.02); EST Glomerular Filtration Rate 91 mL/min (>60); Est Glom Filt Rate - Afr Amer 110 mL/min (>60); Estimated Creatinine Clearance 101.26 ml/min; Glucose 87 mg/dL (74-106); Lipase 23 U/L (13-75); Potassium 3.7 mmol/L (3.5-5.1); Protein, Total 7.8 g/dL (6.4-8.2); Sodium Level 137 mmol/L (136-145)
[2023-07-19 21:53] LABS: Color, Urine Yellow (Yellow); Glucose, Dipstick Normal (Normal); Ketone-Dipstick 5 mg/dl (Negative); Leukocyte Esterase-Dipstick 100 /ul (Negative); Nitrite-Dipstick Negative (Negative); Occult Blood-Urine Negative /ul (Negative); Protein-Dipstick 15 mg/dl (Negative); Urine Bilirubin Dipstick Negative (Negative); Urine Clarity Clear (Clear); Urine Urobilinogen Normal (Normal)
[2023-07-19 22:11] VITALS: BP 100/66; PULSE 68; RESP 15; O2SAT 98
[2023-07-19 22:11] LABS: Bacteria RARE /hpf (None Seen); Mucous, Urine RARE /hpf (<or=2+); Red Blood Cells-Urine 0-5 SEEN /hpf (0-5); Squamous Epithelial Cells - UA 5-10 SEEN /hpf (5-10); White Blood Cells 0-5 SEEN /hpf (0-5)
[2023-07-19 22:56] VITALS: BP 100/66; PULSE 68; RESP 15; O2SAT 98
== END 2023-07-19 22:58 | disposition home or self-care (01) ==
PROVIDERS: Emergency Provider Emergency Medicine; PCP Student in an Organized Health Care Education/Training Program; Visit Provider Emergency Medicine
DX: N20.0 Calculus of kidney (principal); Z90.49 Acquired absence of other specified parts of digestive tract; Z87.440 Personal history of urinary (tract) infections
CPT/HCPCS: 74177; 80053; 81001; 83690; 85025; 87086; 96374; 96375; 96376; 99283; Q9967; A4216; J2405

== ENCOUNTER 2023-10-22 09:21 | Emergency (ER) | payer MEDICAID, SELFPAY ==
[2023-10-22 09:22] VITALS: BP 121/84; PULSE 67; RESP 16; TEMP 35.9; O2SAT 99; BMI 31.6
--- NOTE | 2023-10-22 09:26 | EDS_ITS ---
HPI History of Present Illness Chief Complaint: Abd Pain Informant: patient Onset/Context/Timing Onset: Weeks (1) Context: Gradual Onset Timing: Continuous Quality: Constant aching but sharp and stabbing at times Location: Right flank Worsened by: Nothing Relieved by: Flexing her hips and knees Narrative Narrative: Patient presents with right flank pain that has been constant for the past week. Patient states it is gradually gotten worse. Patient states it feels similar to prior kidney stones. Patient states it is a constant ache but sharp and stabbing at times. Patient states that his on the right side of her flank and right abdomen. Patient states she started having some nausea and vomiting last night. Patient admits to some subjective fevers and chills. Patient states she is currently on her menstrual period and is unsure if she is having any hematu chiquita. Patient denies any dysuria or frequency. [facility] Medical History Anxiety and depression Back problem Gallstones Kidney stones Home Medications alprazolam 0.25 mg tablet 0.25 mg PO BID PRN Anxiety 12/08/22 [History Last Taken 03/09/23] fluoxetine 20 mg capsule (Prozac) 20 mg PO DAILY ANXIETY 12/08/22 [History Last Taken 03/08/23] fluoxetine 40 mg capsule 40 mg PO DAILY ANXIETY 03/10/23 [History Last Taken 03/08/23] ciprofloxacin HCl 500 mg tablet 500 mg PO BID #14 TABLETS 03/25/23 [Rx Last Taken Unknown] oxycodone-acetaminophen 5 mg-325 mg tablet 1 tab PO Q6H PRN PRN Pain 3 days #12 TABLETS 03/25/23 [Rx Last Taken Unknown] dicyclomine 20 mg tablet 20 mg PO BID #14 tabs 04/27/23 [Rx Last Taken Unknown] ondansetron 4 mg disintegrating tablet 4 mg PO Q8H PRN PRN Nausea #10 tabs 04/27/23 [Rx Last Taken Unknown] naproxen 500 mg tablet (Naprosyn) 500 mg PO BID PRN pain #20 tabs 07/19/23 [Rx Last Taken Unknown] hydrocodone-acetaminophen 5-325mg 5mg-325mg 1 tab PO Q6H PRN PRN Pain 3 days #10 TABLETS 03/15/24 [Rx Last Taken Unknown] ondansetron 4 mg disintegrating tablet 4 mg PO Q8H PRN Nausea #10 tabs 10/22/23 [Rx Last Taken Unknown] Allergy/AdvReac Type Severity Reaction Status Date / Time vancomycin Allergy Severe Anaphylaxis Verified 10/22/23 09:24 ceftriaxone [From Rocephin] Allergy Mild Swelling Verified 10/22/23 09:24 Family History Mother Diabetes Hypertension Father Hypertension Grandmother Diabetes Surgical History History of appendectomy History of back surgery History of tubal ligation S/P ERCP S/P laparoscopic cholecystectomy Social History household members: children and other details: fiance number of children: 3 Smoking Status: Never smoker alcohol intake: never substance use type: does not use do you feel safe at home: Yes additional social history: DOES NOT USE ASPIRIN DOES USE IBUPROFEN ROS ROS ED Constitutional Constitutional ED: Reports chills, fever(s) and subjective Eyes Eyes: Denies blurry vision or change in vision ENT ENT ED: Denies rhinorrhea or sore throat Cardiovascular Cardiovascular: Denies chest pain or palpitations Respiratory/Chest Respiratory/Chest: Reports cough; Denies dyspnea Gastrointestinal Gastrointestinal: Reports nausea and vomiting Genitourinary Genitourinary ED: Denies dysuria or hematuria Musculoskeletal Musculoskeletal: Reports back pain; Denies neck pain Integumentary Denies abscess or rash Neurologic Neurologic: Reports headache(s); Denies weakness Allergic/Immunologic Allergic/Immunologic ED: Denies mouth swelling or urticaria EXAM Physical Exam Const Vital Signs: 10/22/23 09:22 Temperature 96.7 F L Temperature Source Temporal Pulse Rate 67 Respiratory Rate 16 Blood Pressure 121/84 H Blood Pressure Mean 96 Pulse Ox 99 Oxygen Delivery Method Room Air Positive well nourished and well developed General Appearance ED: well developed and NAD HEENT Reports moist mucous membranes Neck supple and no JVD Cardio regular rate and regular rhythm GI non-distended Palpation: soft and tender RLQ and RUQ; Negative for guarding or rebound tenderness present Back/Spine General Back: CVA tenderness right Neuro oriented x3, CN's II-XII intact bilaterally and no sensory deficits noted Sensorium / Orientation: alert Motor Exam: strength 5/5 throughout Psych mental status grossly normal MDM MDM MDM Narrative Medical decision making narrative: Differential diagnosis includes ureteral calculus, pyelonephritis, gastroenteritis, urinary tract infection, mesenteric adenitis, bowel obstruction, perforation. CT scan of the abdomen and pelvis will be obtained to assess for ureteral calculus, bowel obstruction, perforation. CBC will be obtained to assess for leukocytosis and anemia. Basic metabolic profile will be obtained to assess for electrolyte abnormality and renal function. Urinalysis will be obtained to assess for urinary tract infection and hematuria. Lab Data Lab results narrative: CBC was reviewed and was essentially within normal limits. Basic metabolic prof ile was reviewed and was within normal limits. Urinalysis was reviewed. Leukocyte esterase was 100 and occult blood was 250. There were greater than 100 red blood cells seen. There are 0-5 white blood cells seen. Radiography Diagnostic Testing: CT scan of the abdomen pelvis was obtained. There is a right renal calculus but there is no evidence of obstructive uropathy. There is no free air or free fluid noted. There is no evidence of bowel obstruction or perforation. This was interpreted by the radiologist was also independently reviewed by myself. Treatment and Re-Evaluation :: Patient was given IV fluids, Zofran, and Toradol initially. Patient had no relief of her pain with this. Patient was given a dose of morphine. Patient was advised of her findings. Patient was instructed to follow-up with her primary care physician in 3 to 5 days for reevaluation. Patient understood and was agreeable with the plan. All questions were answered. Discharge Plan Triage Chief Complaint: Abd Pain ED Provider: Mario Pittman Dx/Rx/DC Orders Clinical Impression: Acute right flank pain, Depression Instructions: ED Flank Pain, Uncertain Cause Prescriptions: New hydrocodone-acetaminophen [hydrocodone-acetaminophen] 5-325 mg tablet 1 tab PO Q6H PRN PRN (Reason: Pain) 3 Days Qty: 10 0RF Continued ondansetron 4 mg tablet,disintegrating 4 mg PO Q8H PRN (Reason: Nausea) Qty: 10 0RF No Action alprazolam 0.25 mg tablet 0.25 mg PO BID PRN (Reason: Anxiety) fluoxetine [Prozac] 20 mg Capsule 20 mg PO DAILY Rx Instructions: TAKE ONE CAPSULE (20MG) BY MOUTH ONCE DAILY WITH ONE 40MG CAPSULE FOR A TOTAL DAILY DOSE OF 60MG fluoxetine 40 mg capsule 40 mg PO DAILY Rx Instructions: TAKE ONE CAPSULE (20MG) BY MOUTH ONCE DAILY WITH ONE 40MG CAPSULE FOR A TOTAL DAILY DOSE OF 60MG ciprofloxacin HCl [ciprofloxacin HCl] 500 mg tablet 500 mg PO BID Qty: 14 0RF oxycodone-acetaminophen [oxycodone-acetaminophen] 5-325 mg tablet 1 tab PO Q6H PRN PRN (Reason: Pain) 3 Days Qty: 12 0RF ondansetron 4 mg tablet,disintegrating 4 mg PO Q8H PRN PRN (Reason: Nausea) Qty: 10 0RF dicyclomine 20 mg tablet 20 mg PO BID Qty: 14 0RF naproxen [Naprosyn] 500 mg tablet 500 mg PO BID PRN (Reason: pain) Qty: 20 0RF Primary Care Provider: Dario Poe Referrals: Dario Poe DO [Primary Care Provider] - 3-5 Days Disposition Disposition: Home, Self Care
[2023-10-22 09:38] VITALS: BP 117/73; PULSE 68; RESP 18; O2SAT 100
--- NOTE | 2023-10-22 09:57 | CT_ITS ---
STUDY: CT ABDOMEN AND PELVIS WITHOUT CONTRAST REASON FOR EXAM: Female, 28 years old. Right flank pain RADIATION DOSAGE (If Supplied By Facility): CTDIvol = ( 19.99 ) mGy, DLP = ( 993.75 ) mGycm TECHNIQUE: Transaxial images were obtained from the dome of the diaphragm to the symphysis pubis without oral contrast, and without intravenous contrast. Sagittal and coronal images were reconstructed. Individualized dose optimization techniques were used for this CT. COMPARISON: Comparison is made with prior study dated July 19, 2023. FINDINGS: The visualized lung bases are unremarkable. The visualized portions of the heart are within normal limits. Normal liver. The patient is status post cholecystectomy. Normal spleen. Normal pancreas. Normal bilateral adrenal glands. Punctate calculus in the anterior midpole calyx of the right kidney. Normal left kidney. Normal visualized stomach. Normal small intestine. Normal colon. There are surgical clips in the region of the appendix consistent with a prior appendectomy. Normal abdominal aorta. Normal inferior vena cava. Normal retroperitoneum. Normal urinary bladder. There is evidence of bilateral tubal ligation clips. There is a small umbilical hernia containing fat. The patient is status post interpedicular screw and anne-marie fixation of the lower thoracic and upper lumbar spine. Residual levoconvex scoliosis. CT/Abdomen/Pelvis without Cont IMPRESSION: Nonobstructive tiny right intrarenal calculus. No obstructive uropathy is seen at this time. Electronically Signed: Gideon Thorne MD at 10:43 EDT ,
[2023-10-22] MEDS: Ketorolac 30 MG/ML Syringe IV (10:08)
[2023-10-22] MEDS: Ondansetron 4 MG/2 ML Vial IV (10:08)
[2023-10-22] MEDS: 0.9% Normal Saline (1000mL) 1,000 ML 1000 ML IV (10:08)
[2023-10-22 10:18] LABS: Absolute Neutrophil Count 7.8 X10^3/uL (2.0-7.7); Basophil# 0.02 X10^3/uL; Basophil% 0.2 % (0-1); Eosinophil# 0.08 X10^3/uL; Eosinophils% 0.9 % (0-5); Hematocrit 40.3 % (37-47); Hemoglobin 13.1 g/dL (12.0-15.0); Lymphocyte % 6.6 % (19-41); Mean Corp Hgb Conc 32.5 g/dL (32-36); Mean Corpuscular Volume 89.2 fL (81-99); Mean Platelet Vol. 10.9 fl (6.2-12.0); Monocyte# 0.51 X10^3/uL; Monocyte% 5.6 % (0-10); NRBC Flagged by Analyzer 0 % (0-5); Neutrophil # 7.79 X10^3/uL (2.7-7.7); Neutrophil % 86.1 % (47-70); POSITIVE DIFFERENTIAL YES; Platelet Count 247 K/mm3 (150-450); RBC Distribution Width CV 12.5 % (11.6-14.6); Red Blood Count 4.52 M/mm3 (4.2-5.4); White Blood Count 9.1 K/mm3 (4.4-11.0)
[2023-10-22 10:28] LABS: Anion Gap 5 (5-15); BUN 8 mg/dL (7-18); BUN/Creat Ratio 11.1 RATIO (10-20); Calcium,Total 9.5 mg/dL (8.5-10.1); Chloride 107 mmol/L (98-107); Creatinine, Serum 0.72 mg/dL (0.55-1.02); EST Glomerular Filtration Rate 101 mL/min (>60); Est Glom Filt Rate - Afr Amer 122 mL/min (>60); Estimated Creatinine Clearance 128.28 ml/min; Glucose 96 mg/dL (74-106); Potassium 3.7 mmol/L (3.5-5.1); Sodium Level 138 mmol/L (136-145)
[2023-10-22 10:34] LABS: Glucose, Dipstick Normal (Normal); Ketone-Dipstick 15 mg/dl (Negative); Leukocyte Esterase-Dipstick 100 /ul (Negative); Nitrite-Dipstick Negative (Negative); Occult Blood-Urine 250 /ul (Negative); Protein-Dipstick 100 mg/dl (Negative); Specific Gravity, Urine 1.015 (1.002-1.030); Urine Bilirubin Dipstick Negative (Negative); Urine Urobilinogen 1 mg/dl (Normal)
[2023-10-22 10:48] LABS: Color, Urine Red (Yellow); Urine Clarity Cloudy (Clear)
[2023-10-22 10:54] LABS: Red Blood Cells-Urine > 100 SEEN /hpf (0-5)
[2023-10-22 10:55] LABS: Squamous Epithelial Cells - UA 0-5 SEEN /hpf (5-10); White Blood Cells 0-5 SEEN /hpf (0-5)
[2023-10-22 10:56] LABS: Bacteria RARE /hpf (None Seen); Mucous, Urine RARE /hpf (<or=2+)
[2023-10-22 11:15] VITALS: BP 94/53; PULSE 58; RESP 18; O2SAT 100
[2023-10-22] MEDS: Morphine 4 MG/ML Syringe IV (12:38)
[2023-10-22 13:01] VITALS: BP 107/67; PULSE 61; RESP 16; TEMP 36.7; O2SAT 96
== END 2023-10-22 13:06 | disposition home or self-care (01) ==
PROVIDERS: Emergency Provider Emergency Medicine; PCP Student in an Organized Health Care Education/Training Program; Visit Provider Emergency Medicine
DX: R10.11 Right upper quadrant pain (principal); R10.31 Right lower quadrant pain; F32.A Depression, unspecified; Z90.49 Acquired absence of other specified parts of digestive tract
CPT/HCPCS: 74176; 80048; 81001; 85025; 96361; 96374; 96375; 99285; J7030; A4216; J2405

== ENCOUNTER 2023-12-11 11:42 | Emergency (ER) | payer MEDICAID, SELFPAY ==
[2023-12-11 11:43] VITALS: BP 109/88; PULSE 80; RESP 16; TEMP 36.1; O2SAT 100
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
--- NOTE | 2023-12-11 12:20 | RAD_ITS ---
INDICATION: injury EXAMINATION/TECHNIQUE: X-RAY - LEFT XR Elbow Min 3 Views COMPARISON: No relevant prior comparison study available FINDINGS: SOFT TISSUES: No soft tissue swelling or gas. No radiopaque foreign body. BONES/JOINTS: There is no displacement of the anterior or posterior fat pads. No acute fracture or subluxation. Normal alignment. Preservation of the joint space. No sclerotic or destructive changes observed. RAD/Elbow min 3 Views IMPRESSION: No evidence of acute fracture or dislocation. Electronically Signed: Maximiliano Moura MD at 13:01 EDT ,
[2023-12-11] MEDS: Diphth,Pertuss(Acell),Tet Vac 0.5 ML Vial IM (12:35)
[2023-12-11] MEDS: Ibuprofen 600 MG Tablet PO (12:35)
[2023-12-11 13:43] VITALS: BP 110/86; PULSE 88; RESP 16; O2SAT 98
[2023-12-11 14:01] VITALS: BP 110/86; PULSE 88; RESP 16; TEMP 36.4; O2SAT 98
== END 2023-12-11 14:01 | disposition home or self-care (01) ==
PROVIDERS: Emergency Provider Emergency Medicine; PCP Student in an Organized Health Care Education/Training Program; Visit Provider Emergency Medicine
DX: S06.0X0A Concussion without loss of consciousness, initial encounter (principal); S50.02XA Contusion of left elbow, initial encounter; S00.91XA Abrasion of unspecified part of head, initial encounter; S80.02XA Contusion of left knee, initial encounter; S40.012A Contusion of left shoulder, initial encounter; X58.XXXA Exposure to other specified factors, initial encounter
CPT/HCPCS: 73080; 90715; 99282

== ENCOUNTER 2024-01-09 16:29 | Emergency (ER) | payer MEDICAID, SELFPAY ==
[2024-01-09 16:29] VITALS: BP 115/64; PULSE 55; RESP 16; TEMP 35.8; O2SAT 100; BMI 29.8
--- NOTE | 2024-01-09 16:41 | EDS_ITS ---
HPI History of Present Illness Chief Complaint: General Illness Narrative Narrative: 28-year-old female past medical history of previous UTIs, chronic low back pain, presents with multiple somatic complaints but mainly she feels lightheaded and dizzy, and has had nausea and vomiting and has bilateral flank pain. No fevers or chills. She states last night around 8 PM she began not feeling well. She feels lightheaded and minimally vertiginous. She has been vomiting multiple times, too many to count. No diarrhea, no problems with bowel movements. She she has bilateral low back pain and flank pain and is unsure if she has another urinary tract infection. [facility] Medical History Kidney stones Gallstones Anxiety and depression Back problem Home Medications ?Medication ?Instructions ?Recorded ?Last Taken ?Type alprazolam 0.25 mg tablet 0.25 mg PO BID PRN Anxiety 12/08/22 03/09/23 History fluoxetine 20 mg capsule (Prozac) 20 mg PO DAILY ANXIETY 12/08/22 03/08/23 History fluoxetine 40 mg capsule 40 mg PO DAILY ANXIETY 03/10/23 03/08/23 History ciprofloxacin HCl 500 mg tablet 500 mg PO BID #14 TABLETS 03/25/23 Unknown Rx oxycodone-acetaminophen 5 mg-325 1 tab PO Q6H PRN PRN Pain 3 days 03/25/23 Unknown Rx mg tablet #12 TABLETS dicyclomine 20 mg tablet 20 mg PO BID #14 tabs 04/27/23 Unknown Rx ondansetron 4 mg disintegrating 4 mg PO Q8H PRN PRN Nausea #10 tabs 04/27/23 Unknown Rx tablet naproxen 500 mg tablet (Naprosyn) 500 mg PO BID PRN pain #20 tabs 07/19/23 Unknown Rx hydrocodone-acetaminophen 5-325mg 1 tab PO Q6H PRN PRN Pain 3 days 10/22/23 Unknown Rx 5mg-325mg #10 TABLETS ondansetron 4 mg disintegrating 4 mg PO Q8H PRN Nausea #10 tabs 10/22/23 Unknown Rx tablet sulfamethoxazole 800 1 tab PO BID #14 tabs 01/09/24 Unknown Rx mg-trimethoprim 160 mg tablet (Bactrim DS) Allergy/AdvReac Type Severity Reaction Status Date / Time vancomycin Allergy Severe Anaphylaxis Verified 01/09/24 16:31 ceftriaxone (From Rocephin) Allergy Mild Swelling Verified 01/09/24 16:31 Family History Mother Diabetes Hypertension Father Hypertension Grandmother Diabetes Surgical History S/P ERCP S/P laparoscopic cholecystectomy History of back surgery History of tubal ligation History of appendectomy Social History household members: children and other details: fiance number of children: 3 Smoking Status: Never smoker alcohol intake: never substance use type: does not use do you feel safe at home: Yes additional social history: DOES NOT USE ASPIRIN DOES USE IBUPROFEN ROS ROS ED ROS Narrative Constitutional: No fever, no chills. HEENT: No sore throat. No neck pain. No loss of vision. No rhinorrhea. Cardiovascular: No chest pain. No palpitations. No pedal edema. Respiratory: No cough, no shortness of breath. Abdominal: Minimal epigastric abdominal pain. Positive nausea and vomiting Genitourinary: No dysuria. No hematuria. Bilateral flank pain. Musculoskeletal: No myalgias. No arthralgias. Neurologic: No headaches. Positive lightheadedness and dizziness. Skin: No rash. No change in color. Psychiatric: No depression. No anxiety. EXAM Physical Exam Narrative Exam Narrative: Afebrile. Vital signs noted. HEENT: Normocephalic. Atraumatic. PERRL, EOMI. Neck soft and supple. No point tenderness or step off. Cardiovascular: Regular rate and rhythm. No murmurs, rubs, or gallops appreciated. Respiratory: No tachypnea. Lungs clear to auscultation bilaterally. Gastrointestinal: Abdomen soft, nontender, with normoactive bowel sounds. No rebound or guarding. Questionable CVA tenderness to percussion bilaterally. Neurological: Awake. Alert. Nonfocal, nonlateralizing. Skin: No rash. Normal color. No pallor. Musculoskeletal: No pedal edema. Full range of motion extremities. Const Vital Signs: 01/09/24 16:29 01/09/24 16:29 01/09/24 17:38 Temperature 96.5 F L Temperature Source Temporal Pulse Rate 55 L Pulse Rate [Lying] 54 L Pulse Rate [Sitting (for 1 minute prior to obtaining)] 52 L Pulse Rate [Standing (for 1 minute prior to obtaining)] 54 L Respiratory Rate 16 Respiratory Effort Normal Non-Labored Respiratory Pattern Normal Blood Pressure 115/64 Blood Pressure [Lying] 116/102 H Blood Pressure [Sitting (for 1 minute prior to obtaining)] 120/72 Blood Pressure [Standing (for 1 minute prior to obtaining)] 108/76 Blood Pressure Mean 81 Blood Pressure Mean [Lying] 106 Blood Pressure Mean [Sitting (for 1 minute prior to obtaining)] 88 Blood Pressure Mean [Standing (for 1 minute prior to obtaining)] 86 Pulse Ox 100 Oxygen Delivery Method Room Air 01/09/24 18:31 Temperature Temperature Source Pulse Rate 50 L Pulse Rate [Lying] Pulse Rate [Sitting (for 1 minute prior to obtaining)] Pulse Rate [Standing (for 1 minute prior to obtaining)] Respiratory Rate 16 Respiratory Effort Respiratory Pattern Blood Pressure 109/64 Blood Pressure [Lying] Blood Pressure [Sitting (for 1 minute prior to obtaining)] Blood Pressure [Standing (for 1 minute prior to obtaining)] Blood Pressure Mean 79 Blood Pressure Mean [Lying] Blood Pressure Mean [Sitting (for 1 minute prior to obtaining)] Blood Pressure Mean [Standing (for 1 minute prior to obtaining)] Pulse Ox 95 Oxygen Delivery Method MDM MDM MDM Narrative Medical decision making narrative: In the differential diagnosis is dehydration versus other electrolyte imbalance versus intravascular volume depletion. Orthostatics will be obtained. For her nausea and vomiting, she may have pancreatitis. I will also check her for urinary tract infection/pyelonephritis. However, I have low suspicion for sepsis as she is afebrile, she is not tachycardic, in fact she has intermittent bradycardia, she has normal blood pressure. She will be bolused normal saline 1 L intravenously. I do not feel she requires CT imaging of the brain. She may require meclizine as she may have some component of vertigo. Checked her laboratory work and she has normal white count of 10.3, hemoglobin normal at 12.9, hematocrit 40.7 with platelet count normal at 255. Electrolyte panel is grossly unremarkable. No hyponatremia or hypokalemia. Serum test is negative. She has 10-25 WBCs in her urinalysis with rare bacteria. No feel she needs a CT of the flank as her pain was bilateral, but I have low suspicion for pyelonephritis. Her urine was sent for culture however, and she will be started on Bactrim DS to take for the next week. At this point in time, I feel she be discharged safely home with follow-up to her primary care provider. Return instructions to the emergency department were reviewed. Disposition is discharged home in stable condition. History & Record Review Discussion w/independent historian: Patient Additional record(s) reviewed:: Prior labs Lab Data Attestation: I reviewed the patient's lab results. Labs: Laboratory Results - last 24 hr 01/09/24 01/09/24 17:37 19:14 WBC 10.3 RBC 4.55 Hgb 12.9 Hct 40.7 MCV 89.5 MCH 28.4 MCHC 31.7 L RDW Std Deviation 39.0 RDW Coeff of Kell 11.9 Plt Count 255 MPV 11.1 Immature Gran % (Auto) 0.400 Neut % (Auto) 79.2 H Lymph % (Auto) 12.2 L Moody % (Auto) 6.6 Eos % (Auto) 1.4 Baso % (Auto) 0.2 Absolute Neuts (auto) 8.1 H Absolute Lymphs (auto) 1.25 Nucleated RBC % 0 Sodium 139 Potassium 3.6 Chloride 106 Carbon Dioxide 27.0 Anion Gap 6 BUN 8 Creatinine 0.78 Estim Creat Clear Calc 119.14 Est GFR (MDRD) Af Amer 112 Est GFR (MDRD) Non-Af 92 BUN/Creatinine Ratio 10.3 Glucose 86 Calcium 9.2 Total Bilirubin 0.50 AST 37 ALT 43 Alkaline Phosphatase 82 Total Protein 7.8 Albumin 3.7 Globulin 4.1 Albumin/Globulin Ratio 0.9 Lipase 26 Serum , Qual NEGATIVE Urine Color Yellow Urine Clarity Sl. Cloudy Urine pH 6.0 Ur Specific Red [place] 1.015 Urine Protein 30 H Urine Glucose (UA) Normal Urine Ketones 15 H Urine Occult Blood 250 H Urine Nitrite Negative Urine Bilirubin Negative Urine Urobilinogen Normal Ur Leukocyte Esterase 500 H Urine RBC 5-10 SEEN Urine WBC 10-25 SEEN Ur Squamous Epith Cells 0-5 SEEN Amorphous Sediment 1+ URATE Urine Bacteria RARE Urine Mucus 0 SEEN Discharge Plan Triage Chief Complaint: General Illness ED Provider: Colby Kirkpatrick Dx/Rx/DC Orders Clinical Impression: UTI (urinary tract infection), Dizziness, Bilateral flank pain Instructions: UTIs Understanding, ED Dizziness, Uncertain Cause, ED Flank Pain, Uncertain Cause Prescriptions: New sulfamethoxazole-trimethoprim [Bactrim DS] 800-160 mg tablet 1 tab PO BID Qty: 14 0RF No Action alprazolam 0.25 mg tablet 0.25 mg PO BID PRN (Reason: Anxiety) fluoxetine [Prozac] 20 mg Capsule 20 mg PO DAILY Rx Instructions: TAKE ONE CAPSULE (20MG) BY MOUTH ONCE DAILY WITH ONE 40MG CAPSULE FOR A TOTAL DAILY DOSE OF 60MG fluoxetine 40 mg capsule 40 mg PO DAILY Rx Instructions: TAKE ONE CAPSULE (20MG) BY MOUTH ONCE DAILY WITH ONE 40MG CAPSULE FOR A TOTAL DAILY DOSE OF 60MG ciprofloxacin HCl [ciprofloxacin HCl] 500 mg tablet 500 mg PO BID Qty: 14 0RF oxycodone-acetaminophen [oxycodone-acetaminophen] 5-325 mg tablet 1 tab PO Q6H PRN PRN (Reason: Pain) 3 Days Qty: 12 0RF ondansetron 4 mg tablet,disintegrating 4 mg PO Q8H PRN PRN (Reason: Nausea) Qty: 10 0RF dicyclomine 20 mg tablet 20 mg PO BID Qty: 14 0RF naproxen [Naprosyn] 500 mg tablet 500 mg PO BID PRN (Reason: pain) Qty: 20 0RF hydrocodone-acetaminophen [hydrocodone-acetaminophen] 5-325 mg tablet 1 tab PO Q6H PRN PRN (Reason: Pain) 3 Days Qty: 10 0RF ondansetron 4 mg tablet,disintegrating 4 mg PO Q8H PRN (Reason: Nausea) Qty: 10 0RF Primary Care Provider: Dario Poe Referrals: Dario Poe, DO [Primary Care Provider] - 3-5 Days if not improving Print Language: [place] Disposition Disposition: Home, Self Care
[2024-01-09] MEDS: 0.9% Normal Saline (1000mL) 1,000 ML 1000 ML IV (17:35)
[2024-01-09 17:38] VITALS: BP 108/76; BP 116/102; BP 120/72; PULSE 52; PULSE 54
[2024-01-09 17:57] LABS: Absolute Lymphocyte Count 1.25 X10^3/uL (0.83-4.51); Absolute Neutrophil Count 8.1 X10^3/uL (2.0-7.7); Basophil# 0.02 X10^3/uL; Basophil% 0.2 % (0-1); Eosinophil# 0.14 X10^3/uL; Eosinophils% 1.4 % (0-5); Hematocrit 40.7 % (37-47); Hemoglobin 12.9 g/dL (12.0-15.0); Lymphocyte # 1.25 X10^3/ul (0.83-4.51); Lymphocyte % 12.2 % (19-41); Mean Corp Hgb Conc 31.7 g/dL (32-36); Mean Corpuscular Hgb 28.4 pg (27.0-32.0); Mean Corpuscular Volume 89.5 fL (81-99); Mean Platelet Vol. 11.1 fl (6.2-12.0); Monocyte# 0.68 X10^3/uL; Monocyte% 6.6 % (0-10); NRBC Flagged by Analyzer 0 % (0-5); Neutrophil # 8.14 X10^3/uL (2.7-7.7); Neutrophil % 79.2 % (47-70); Platelet Count 255 K/mm3 (150-450); RBC Distribution Width CV 11.9 % (11.6-14.6); Red Blood Count 4.55 M/mm3 (4.2-5.4); White Blood Count 10.3 K/mm3 (4.4-11.0)
[2024-01-09 18:06] LABS: Internal QC Validated? YES +Cl - CLEAR BKGD; Pregnancy, Serum, hCG Quali. NEGATIVE Negative
[2024-01-09 18:14] LABS: ALB/GLOB Ratio 0.9 RATIO (0.9-2.4); AST(SGOT) 37 U/L (15-37); Alanine Aminotransfer ALT/SGPT 43 U/L (13-56); Albumin, Serum 3.7 g/dL (3.2-5.0); Alkaline Phosphatase 82 U/L (45-117); Anion Gap 6 (5-15); BUN 8 mg/dL (7-18); BUN/Creat Ratio 10.3 RATIO (10-20); Calcium,Total 9.2 mg/dL (8.5-10.1); Chloride 106 mmol/L (98-107); Creatinine, Serum 0.78 mg/dL (0.55-1.02); EST Glomerular Filtration Rate 92 mL/min (>60); Est Glom Filt Rate - Afr Amer 112 mL/min (>60); Estimated Creatinine Clearance 119.14 ml/min; Globulin 4.1 g/dL (2.2-4.2); Glucose 86 mg/dL (74-106); Lipase 26 U/L (13-75); Potassium 3.6 mmol/L (3.5-5.1); Protein, Total 7.8 g/dL (6.4-8.2); Sodium Level 139 mmol/L (136-145)
[2024-01-09 18:31] VITALS: BP 109/64; PULSE 50; RESP 16; O2SAT 95
[2024-01-09 19:18] LABS: Mucous, Urine 0 SEEN /hpf (<or=2+)
[2024-01-09 19:27] LABS: Color, Urine Yellow (Yellow); Glucose, Dipstick Normal (Normal); Ketone-Dipstick 15 mg/dl (Negative); Leukocyte Esterase-Dipstick 500 /ul (Negative); Nitrite-Dipstick Negative (Negative); Occult Blood-Urine 250 /ul (Negative); Protein-Dipstick 30 mg/dl (Negative); Specific Gravity, Urine 1.015 (1.002-1.030); Urine Bilirubin Dipstick Negative (Negative); Urine Clarity Sl. Cloudy (Clear); Urine Urobilinogen Normal (Normal)
[2024-01-09 19:43] LABS: Amorphous Sediment 1+ URATE; Bacteria RARE /hpf (None Seen); Red Blood Cells-Urine 5-10 SEEN /hpf (0-5); Squamous Epithelial Cells - UA 0-5 SEEN /hpf (5-10); White Blood Cells 10-25 SEEN /hpf (0-5)
[2024-01-09 19:56] VITALS: BP 108/65; PULSE 55; RESP 16; TEMP 36.8; O2SAT 97
[2024-01-09] MEDS: Smz/Tmp Ds Tablet 1 TABLET PO (19:59)
== END 2024-01-09 20:01 | disposition home or self-care (01) ==
PROVIDERS: Emergency Provider Emergency Medicine; PCP Student in an Organized Health Care Education/Training Program; Visit Provider Emergency Medicine
DX: N39.0 Urinary tract infection, site not specified (principal); R42 Dizziness and giddiness; R10.9 Unspecified abdominal pain
CPT/HCPCS: 80053; 81001; 83690; 84703; 85025; 87077; 87086; 87088; 87186; 99283; A4216

== ENCOUNTER 2024-03-08 15:35 | Emergency (ER) | payer MEDICAID, SELFPAY ==
[2024-03-08] VITALS (7 sets, daily range): BP systolic 106–115; BP diastolic 59–81; PULSE 51–76; RESP 16–18; TEMP 36.4–36.6; O2SAT 97–99; BMI 30.6
--- NOTE | 2024-03-08 16:02 | EKG12_ITS ---
Test Reason : GENERAL Blood Pressure : / mmHG Vent. Rate : 058 BPM Atrial Rate : 058 BPM P-R Int : 090 ms QRS Dur : 098 ms QT Int : 506 ms P-R-T Axes : 057 068 026 degrees QTc Int : 496 ms Sinus bradycardia with short [place] Prolonged QT Abnormal ECG Confirmed by ISMAEL MADDEN, JOSE ([id number]), photography editor KAYY MITCHELL ([id number]) on 03/10/2024 10:25:55 AM Referred By: JAZMINE/TB Confirmed By:ROBERTO GUEVARA MD
--- NOTE | 2024-03-08 16:03 | EX.ED.DYSGE1 ---
HPI History of Present Illness Chief Complaint: General Illness Informant: patient and spouse/S.O. Onset/Context/Timing Onset: Today Context: Sudden Onset Timing: Continuous Quality: Aching Location: Generalized Worsened by: Nothing Relieved by: Nothing Narrative Narrative: Patient presents with fever and chills that began today. Patient states it began when she woke up today. Significant other states that when he got home from work around 2:30 PM, she was sitting in the living room having shaking chills. Patient admits to some shortness of breath. Patient denies any cough. Patient admits to some nausea and vomiting. Patient states nothing makes her symptoms better and nothing makes them worse. Patient denies any dysuria or hematuria. Patient denies any frequency. [facility] Medical History Kidney stones Gallstones Anxiety and depression Back problem Home Medications ?Medication ?Instructions ?Recorded ?Last Taken ?Type alprazolam 0.25 mg tablet 0.25 mg PO BID PRN Anxiety 12/08/22 03/09/23 History fluoxetine 20 mg capsule (Prozac) 20 mg PO DAILY ANXIETY 12/08/22 03/08/23 History fluoxetine 40 mg capsule 40 mg PO DAILY ANXIETY 03/10/23 03/08/23 History ciprofloxacin HCl 500 mg tablet 500 mg PO BID #14 TABLETS 03/25/23 Unknown Rx oxycodone-acetaminophen 5 mg-325 1 tab PO Q6H PRN PRN Pain 3 days 03/25/23 Unknown Rx mg tablet #12 TABLETS dicyclomine 20 mg tablet 20 mg PO BID #14 tabs 04/27/23 Unknown Rx ondansetron 4 mg disintegrating 4 mg PO Q8H PRN PRN Nausea #10 tabs 04/27/23 Unknown Rx tablet naproxen 500 mg tablet (Naprosyn) 500 mg PO BID PRN pain #20 tabs 07/19/23 Unknown Rx hydrocodone-acetaminophen 5-325mg 1 tab PO Q6H PRN PRN Pain 3 days 10/22/23 Unknown Rx 5mg-325mg #10 TABLETS ondansetron 4 mg disintegrating 4 mg PO Q8H PRN Nausea #10 tabs 10/22/23 Unknown Rx tablet sulfamethoxazole 800 1 tab PO BID #14 tabs 01/09/24 Unknown Rx mg-trimethoprim 160 mg tablet (Bactrim DS) nitrofurantoin 100 mg PO Q12 #14 CAPSULES 03/08/24 Unknown Rx monohydrate/macrocrystals 100 mg capsule Allergy/AdvReac Type Severity Reaction Status Date / Time vancomycin Allergy Severe Anaphylaxis Verified 01/09/24 16:31 ceftriaxone (From Rocephin) Allergy Mild Swelling Verified 01/09/24 16:31 Family History Mother Diabetes Hypertension Father Hypertension Grandmother Diabetes Surgical History S/P ERCP S/P laparoscopic cholecystectomy History of back surgery History of tubal ligation History of appendectomy Social History household members: children and other details: fiance number of children: 3 Smoking Status: Never smoker alcohol intake: never substance use type: does not use do you feel safe at home: Yes additional social history: DOES NOT USE ASPIRIN DOES USE IBUPROFEN ROS ROS ED Constitutional Constitutional ED: Reports chills, fever(s) and subjective Eyes Eyes: Denies blurry vision or change in vision ENT ENT ED: Denies rhinorrhea or sore throat Cardiovascular Cardiovascular: Denies chest pain or palpitations Respiratory/Chest Respiratory/Chest: Reports dyspnea; Denies cough Gastrointestinal Gastrointestinal: Reports nausea and vomiting Genitourinary Genitourinary ED: Denies dysuria or hematuria Musculoskeletal Musculoskeletal: Denies back pain or neck pain Integumentary Denies abscess or rash Neurologic Neurologic: Denies headache(s) or weakness Allergic/Immunologic Allergic/Immunologic ED: Denies mouth swelling or urticaria EXAM Physical Exam Const Vital Signs: 03/08/24 15:36 03/08/24 15:45 03/08/24 17:13 Temperature 97.6 F L Temperature Source Temporal Pulse Rate 70 Pulse Rate [Lying] 51 L Pulse Rate [Sitting (for 1 minute prior to obtaining)] 67 Pulse Rate [Standing (for 1 minute prior to obtaining)] 76 Respiratory Rate 18 Respiratory Effort Short of Breath Respiratory Pattern Normal Blood Pressure 106/78 Blood Pressure [Lying] 107/59 L Blood Pressure [Sitting (for 1 minute prior to obtaining)] 114/79 Blood Pressure [Standing (for 1 minute prior to obtaining)] 115/81 H Blood Pressure Mean 87 Blood Pressure Mean [Lying] 75 Blood Pressure Mean [Sitting (for 1 minute prior to obtaining)] 90 Blood Pressure Mean [Standing (for 1 minute prior to obtaining)] 92 Pulse Ox 99 Oxygen Delivery Method Room Air 03/08/24 17:28 03/08/24 18:45 03/08/24 20:03 Temperature 97.6 F L 97.7 F L Temperature Source Oral Oral Pulse Rate 60 65 64 Pulse Rate [Lying] Pulse Rate [Sitting (for 1 minute prior to obtaining)] Pulse Rate [Standing (for 1 minute prior to obtaining)] Respiratory Rate 16 16 16 Respiratory Effort Respiratory Pattern Blood Pressure 115/63 115/72 Blood Pressure [Lying] Blood Pressure [Sitting (for 1 minute prior to obtaining)] Blood Pressure [Standing (for 1 minute prior to obtaining)] Blood Pressure Mean 80 86 Blood Pressure Mean [Lying] Blood Pressure Mean [Sitting (for 1 minute prior to obtaining)] Blood Pressure Mean [Standing (for 1 minute prior to obtaining)] Pulse Ox 98 97 98 Oxygen Delivery Method Room Air Room Air Room Air 03/08/24 20:56 Temperature Temperature Source Pulse Rate 58 L Pulse Rate [Lying] Pulse Rate [Sitting (for 1 minute prior to obtaining)] Pulse Rate [Standing (for 1 minute prior to obtaining)] Respiratory Rate 16 Respiratory Effort Respiratory Pattern Blood Pressure 106/69 Blood Pressure [Lying] Blood Pressure [Sitting (for 1 minute prior to obtaining)] Blood Pressure [Standing (for 1 minute prior to obtaining)] Blood Pressure Mean 81 Blood Pressure Mean [Lying] Blood Pressure Mean [Sitting (for 1 minute prior to obtaining)] Blood Pressure Mean [Standing (for 1 minute prior to obtaining)] Pulse Ox 97 Oxygen Delivery Method Room Air Positive well nourished and well developed General Appearance ED: well developed and NAD HEENT Reports moist mucous membranes Neck supple and no JVD Resp clear to auscultation bilaterally Auscultation: diminished lung sounds diffuse Cardio regular rate and regular rhythm GI non-tender and non-distended Palpation: soft Neuro oriented x3, CN's II-XII intact bilaterally and no sensory deficits noted Sensorium / Orientation: alert Motor Exam: strength 5/5 throughout Psych mental status grossly normal Skin Skin Narrative: There is a patchy papular rash of the bilateral lower extremities. There are no petechia noted. There is no involvement of the palms or soles. There is no involvement of the mucous membranes. There is no discharge or drainage noted. There is no sloughing of the skin. There is no abscess formation. MDM MDM MDM Narrative Medical decision making narrative: Differential diagnosis includes viral illness, pneumonia, urinary tract infection, sepsis, dehydration, and gastroenteritis. Nursing protocol EKG was obtained to assess for cardiac dysrhythmia and cardiac ischemia. CBC will be obtained to assess for leukocytosis and anemia. Comprehensive metabolic profile will be obtained to assess for hepatic function, renal function, and electrolyte abnormality. Urinalysis will be obtained to assess for urinary tract infection and hematuria. Lactate will be obtained to assess for sepsis. Blood culture will be obtained to assess for sepsis. PT with INR and PTT will be obtained to assess for coagulopathy. Serum hCG will be obtained to assess for . PA and lateral chest x-ray will be obtained to assess for pneumonia. COVID-19, influenza, and RSV PCR will be obtained to assess for viral illness. Lab Data Attestation: I reviewed the patient's lab results. Lab results narrative: CBC was reviewed and was within normal limits. Comprehensive metabolic profile was reviewed and was within normal limits. Serum hCG was reviewed and was negative. PT with INR and PTT were reviewed and were within normal limits. Serum lactate was reviewed and was elevated at 3.1. Urinalysis was reviewed. Urine ketones were 150. Leukocyte esterase was 100. There were 10-25 white blood cells. COVID-19 PCR was reviewed and was negative. Influenza PCR was reviewed and was negative for influenza A and influenza B. RSV PCR was reviewed and was negative. Repeat lactate was reviewed and was normal at 0.7. Labs: Laboratory Results - last 24 hr 03/08/24 03/08/24 03/08/24 16:14 16:16 17:25 WBC 7.8 RBC 4.99 Hgb 14.2 Hct 43.5 MCV 87.2 MCH 28.5 MCHC 32.6 RDW Std Deviation 39.6 RDW Coeff of Kell 12.4 Plt Count 347 MPV 10.7 Immature Gran % (Auto) 0.500 Neut % (Auto) 58.7 Lymph % (Auto) 31.5 [place] % (Auto) 7.1 Eos % (Auto) 1.7 Baso % (Auto) 0.5 Absolute Neuts (auto) 4.6 Absolute Lymphs (auto) 2.47 Nucleated RBC % 0 PT 13.0 INR 1.0 APTT 29.9 Sodium 140 Potassium 3.4 L Chloride 107 Carbon Dioxide 21.0 Anion Gap 12 BUN 10 Creatinine 0.87 Estim Creat Clear Calc 104.46 Est GFR (MDRD) Af Amer 98 Est GFR (MDRD) Non-Af 81 BUN/Creatinine Ratio 11.5 Glucose 134 H Lactic Acid 3.1 H* Calcium 10.0 Total Bilirubin 0.70 AST 35 ALT 28 Alkaline Phosphatase 99 Total Protein 8.6 H Albumin 4.1 Globulin 4.5 H Albumin/Globulin Ratio 0.9 Serum , Qual NEGATIVE Urine Color Yellow Urine Clarity Clear Urine pH 7.0 Ur Specific [place] 1.010 Urine Protein 15 H Urine Glucose (UA) Normal Urine Ketones 150 A* Urine Occult Blood 10 H Urine Nitrite Negative Urine Bilirubin Negative Urine Urobilinogen 1 H Ur Leukocyte Esterase 100 H Urine RBC 0 SEEN Urine WBC 10-25 SEEN Ur Squamous Epith Cells 0-5 SEEN Urine Bacteria 0 SEEN Urine Mucus 0 SEEN 03/08/24 19:55 WBC RBC Hgb Hct MCV MCH MCHC RDW Std Deviation RDW Coeff of Kell Plt Count MPV Immature Gran % (Auto) Neut % (Auto) Lymph % (Auto) [place] % (Auto) Eos % (Auto) Baso % (Auto) Absolute Neuts (auto) Absolute Lymphs (auto) Nucleated RBC % PT INR APTT Sodium Potassium Chloride Carbon Dioxide Anion Gap BUN Creatinine Estim Creat Clear Calc Est GFR (MDRD) Af Amer Est GFR (MDRD) Non-Af BUN/Creatinine Ratio Glucose Lactic Acid 0.7 Calcium Total Bilirubin AST ALT Alkaline Phosphatase Total Protein Albumin Globulin Albumin/Globulin Ratio Serum , Qual Urine Color Urine Clarity Urine pH Ur Specific [place] Urine Protein Urine Glucose (UA) Urine Ketones Urine Occult Blood Urine Nitrite Urine Bilirubin Urine Urobilinogen Ur Leukocyte Esterase Urine RBC Urine WBC Ur Squamous Epith Cells Urine Bacteria Urine Mucus Radiography Chest X-Ray - ED: 2 View, Read by ED Physician, Read by Radiologist and No Acute Disease Diagnostic Testing: Clinical Impression(s) from Imaging Studies Chest X-Ray 03/08/24 16:15 IMPRESSION: No acute cardiopulmonary abnormality. No interval change. Electronically Signed: Matthew Corley MD at 16:44 EDT , PA and lateral chest x-ray was obtained. There are 2 views. On my independent interpretation, lung banks are clear. There is normal cardiac silhouette. Bony thorax is normal. There is no acute process noted. Radiologist also interpreted the x-ray and agrees. EKG Initial EKG: Attestation: I personally reviewed and interpreted this EKG as follows: Interpretation: Sinus Bradycardia (58) Comments: EKG was obtained. On my independent interpretation, it showed a sinus bradycardia with a rate of 58. MT interval, QRS interval, and QTc intervals were all normal. [place] was normal. There are no acute ST or T wave changes. Additional Tests and Interventions Additional Tests or Interventions: Urine culture was obtained. Treatment and Re-Evaluation :: Patient was given IV fluids, Tylenol, and Zofran. Previous urine culture from 01/09/2024 was reviewed. This grew out E. coli which was sensitive to everything except Cipro and Levaquin. Patient was given a dose of Unasyn. Patient was given a prescription for Macrobid. Patient was instructed to take Tylenol or ibuprofen as needed for any fevers. Patient was instructed to follow-up with her primary care physician in 3 to 5 days for further evaluation. Patient understood and was agreeable with the plan. All questions were answered. Discharge Plan Triage Chief Complaint: General Illness ED Provider: Mario Pittman Dx/Rx/DC Orders Clinical Impression: Urinary tract infection, Dehydration Instructions: ED Cystitis Female Adult Prescriptions: New nitrofurantoin monohyd/m-cryst 100 mg capsule 100 mg PO Q12 Qty: 14 0RF No Action alprazolam 0.25 mg tablet 0.25 mg PO BID PRN (Reason: Anxiety) fluoxetine [Prozac] 20 mg Capsule 20 mg PO DAILY Rx Instructions: TAKE ONE CAPSULE (20MG) BY MOUTH ONCE DAILY WITH ONE 40MG CAPSULE FOR A TOTAL DAILY DOSE OF 60MG fluoxetine 40 mg capsule 40 mg PO DAILY Rx Instructions: TAKE ONE CAPSULE (20MG) BY MOUTH ONCE DAILY WITH ONE 40MG CAPSULE FOR A TOTAL DAILY DOSE OF 60MG ciprofloxacin HCl [ciprofloxacin HCl] 500 mg tablet 500 mg PO BID Qty: 14 0RF oxycodone-acetaminophen [oxycodone-acetaminophen] 5-325 mg tablet 1 tab PO Q6H PRN PRN (Reason: Pain) 3 Days Qty: 12 0RF ondansetron 4 mg tablet,disintegrating 4 mg PO Q8H PRN PRN (Reason: Nausea) Qty: 10 0RF dicyclomine 20 mg tablet 20 mg PO BID Qty: 14 0RF naproxen [Naprosyn] 500 mg tablet 500 mg PO BID PRN (Reason: pain) Qty: 20 0RF sulfamethoxazole-trimethoprim [Bactrim DS] 800-160 mg tablet 1 tab PO BID Qty: 14 0RF hydrocodone-acetaminophen [hydrocodone-acetaminophen] 5-325 mg tablet 1 tab PO Q6H PRN PRN (Reason: Pain) 3 Days Qty: 10 0RF ondansetron 4 mg tablet,disintegrating 4 mg PO Q8H PRN (Reason: Nausea) Qty: 10 0RF Primary Care Provider: Dario Poe Referrals: Dario Poe DO [Primary Care Provider] - 3-5 Days Print Language: B[place] Disposition Disposition: Home, Self Care
[2024-03-08] MEDS: Acetaminophen 500 MG Tablet 1000 MG PO (16:11)
[2024-03-08] MEDS: Ondansetron 4 MG/2 ML Vial IV (16:11)
[2024-03-08] MEDS: 0.9% Normal Saline (1000mL) 1,000 ML 1000 ML IV ×2 (16:12→18:44)
--- NOTE | 2024-03-08 16:15 | RAD_ITS ---
EXAM: XR CHEST, 2 VIEWS CLINICAL INDICATION: Fever TECHNIQUE: Frontal and lateral views of the chest. COMPARISON: XR Chest dated 04/10/2021 FINDINGS: LUNGS AND PLEURAL SPACES: Normal. No consolidation or edema. No pneumothorax. No effusion. HEART: Normal heart size. MEDIASTINUM: No mediastinal or hilar mass. BONES/JOINTS: Henderson rods again noted along the upper thoracic to the upper lumbar spine. RAD/Chest PA and Lateral IMPRESSION: No acute cardiopulmonary abnormality. No interval change. Electronically Signed: Matthew Corley MD at 16:44 EDT ,
[2024-03-08 16:28] LABS: Absolute Lymphocyte Count 2.47 X10^3/uL (0.83-4.51); Absolute Neutrophil Count 4.6 X10^3/uL (2.0-7.7); Basophil# 0.04 X10^3/uL; Basophil% 0.5 % (0-1); Eosinophil# 0.13 X10^3/uL; Eosinophils% 1.7 % (0-5); Hematocrit 43.5 % (37-47); Hemoglobin 14.2 g/dL (12.0-15.0); Lymphocyte # 2.47 X10^3/ul (0.83-4.51); Lymphocyte % 31.5 % (19-41); Mean Corp Hgb Conc 32.6 g/dL (32-36); Mean Corpuscular Hgb 28.5 pg (27.0-32.0); Mean Corpuscular Volume 87.2 fL (81-99); Mean Platelet Vol. 10.7 fl (6.2-12.0); Monocyte# 0.56 X10^3/uL; Monocyte% 7.1 % (0-10); NRBC Flagged by Analyzer 0 % (0-5); Neutrophil % 58.7 % (47-70); Platelet Count 347 K/mm3 (150-450); RBC Distribution Width CV 12.4 % (11.6-14.6); RBC Distribution Width SD 39.6 fl (35.1-43.9); Red Blood Count 4.99 M/mm3 (4.2-5.4); White Blood Count 7.8 K/mm3 (4.4-11.0)
[2024-03-08 16:36] LABS: Partial Thromboplast Time 29.9 Seconds (24.1-36.2)
[2024-03-08 16:52] LABS: Internal QC Validated? YES +Cl - CLEAR BKGD; Pregnancy, Serum, hCG Quali. NEGATIVE Negative
[2024-03-08 16:55] LABS: ALB/GLOB Ratio 0.9 RATIO (0.9-2.4); AST(SGOT) 35 U/L (15-37); Alanine Aminotransfer ALT/SGPT 28 U/L (13-56); Albumin, Serum 4.1 g/dL (3.2-5.0); Alkaline Phosphatase 99 U/L (45-117); Anion Gap 12 (5-15); BUN 10 mg/dL (7-18); BUN/Creat Ratio 11.5 RATIO (10-20); Chloride 107 mmol/L (98-107); Creatinine, Serum 0.87 mg/dL (0.55-1.02); EST Glomerular Filtration Rate 81 mL/min (>60); Est Glom Filt Rate - Afr Amer 98 mL/min (>60); Estimated Creatinine Clearance 104.46 ml/min; Globulin 4.5 g/dL (2.2-4.2); Glucose 134 mg/dL (74-106); Potassium 3.4 mmol/L (3.5-5.1); Protein, Total 8.6 g/dL (6.4-8.2); Sodium Level 140 mmol/L (136-145)
[2024-03-08 17:05] LABS: Lactic Acid 3.1 mmol/L (0.4-1.9)
[2024-03-08 17:33] LABS: Bacteria 0 SEEN /hpf (None Seen); Mucous, Urine 0 SEEN /hpf (<or=2+); Red Blood Cells-Urine 0 SEEN /hpf (0-5)
[2024-03-08 17:35] LABS: Color, Urine Yellow (Yellow); Glucose, Dipstick Normal (Normal); Leukocyte Esterase-Dipstick 100 /ul (Negative); Nitrite-Dipstick Negative (Negative); Occult Blood-Urine 10 /ul (Negative); Protein-Dipstick 15 mg/dl (Negative); Urine Bilirubin Dipstick Negative (Negative); Urine Clarity Clear (Clear); Urine Urobilinogen 1 mg/dl (Normal)
[2024-03-08 17:47] LABS: Ketone-Dipstick 150 mg/dl (Negative)
[2024-03-08 17:48] LABS: White Blood Cells 10-25 SEEN /hpf (0-5)
[2024-03-08 17:49] LABS: Squamous Epithelial Cells - UA 0-5 SEEN /hpf (5-10)
[2024-03-08] MEDS: Ampicillin/Sulbactam 3 GM in 0.9% Normal Saline (100mL MB+) 100 ML IV (18:44)
[2024-03-08] MEDS: Ketorolac 30 MG/ML Syringe IV (20:02)
[2024-03-08 20:19] LABS: Reflex Lactate? Y
[2024-03-08 21:00] LABS: Lactic Acid 0.7 mmol/L (0.4-1.9)
== END 2024-03-08 21:46 | disposition home or self-care (01) ==
PROVIDERS: Emergency Provider Emergency Medicine; PCP Student in an Organized Health Care Education/Training Program; Visit Provider Emergency Medicine
DX: N39.0 Urinary tract infection, site not specified (principal); R06.02 Shortness of breath; E86.0 Dehydration
CPT/HCPCS: 71046; 80053; 81001; 83605; 84703; 85025; 85610; 85730; 87040; 87086; 87088; 87631; 93005; 96361; 96365; 96375; 99285; J7030; J7050; A4216; J0295; J2405

== ENCOUNTER 2024-03-14 15:37 | Inpatient (IN) | payer MEDICAID, SELFPAY ==
[2024-03-14 15:38] VITALS: BP 116/76; PULSE 52; RESP 18; TEMP 36.4; O2SAT 100; BMI 29.7
--- NOTE | 2024-03-14 16:06 | CT_ITS ---
STUDY: CT ABDOMEN AND PELVIS WITH CONTRAST REASON FOR EXAM: Female, 28 years old. r flank pain, hx of stones RADIATION DOSAGE (If Supplied By Facility): CTDIvol = ( 18.54 ) mGy, DLP = ( 2055.64 ) mGycm TECHNIQUE: Transaxial images were obtained from the dome of the diaphragm to the symphysis pubis without oral contrast. IV 100mL Isovue-300 was administered. Sagittal and coronal images were reconstructed. Individualized dose optimization techniques were used for this CT. The protocol utilizes one or more of the following dose reduction techniques: automated exposure control, adjustment of mA and/or kV according to patient size,and/or use of iterative reconstruction technique. COMPARISON: CT abdomen and pelvis October 22, 2023 FINDINGS: The visualized lung bases are unremarkable. The visualized portions of the heart are within normal limits. Normal liver. Normal gallbladder and extrahepatic biliary system. Normal spleen. Normal pancreas. Normal bilateral adrenal glands. Normal right kidney. Normal left kidney. Normal visualized stomach. Air-fluid levels noted in the small bowel. Normal colon. PACS appears to be surgically absent. Normal abdominal aorta. Normal inferior vena cava. Normal retroperitoneum. Normal urinary bladder. Uterus normal. Moderate fluid in the pelvis. Bilateral tubal ligation clips. Fat-containing umbilical hernia. Henderson rods thoracic spine. Mild scoliosis. CT/Abdomen/Pelvis W IV Cont ONLY IMPRESSION: Mild ileus. Moderate fluid in the pelvis. No radiodense urolithiasis noted but intravenous contrast limits sensitivity. Moderate scoliosis and Henderson rods. Electronically Signed: Salvatore Cain MD at 18:16 EDT ,
--- NOTE | 2024-03-14 16:08 | EDS_ITS ---
HPI History of Present Illness Chief Complaint: Flank Pain Narrative Narrative: Patient is a 28-year-old female with a past medical history anxiety, depression, kidney stones who presented to the emergency department chief complaint of back pain, nausea vomiting not tolerating oral intake. Patient states that she was here last week and was evaluated and sent home with Macrobid. She states that she been taking her antibiotics for her urinary tract infection. Patient notes that I was told that I had a bloodstream infection and I was 1 day away from being in the ICU. Patient states that she woke up today feeling worse again with right-sided back pain she does have a history of kidney stones and noted that she came here for further evaluation management as it is only her and her children. [facility] Medical History Iron deficiency anemia Obesity Migraine Kidney stones Anxiety and depression Back problem Home Medications ?Medication ?Instructions ?Recorded ?Last Taken ?Type fluoxetine 20 mg capsule (Prozac) 20 mg PO DAILY ANXIETY 12/08/22 03/08/23 History fluoxetine 40 mg capsule 40 mg PO DAILY ANXIETY 03/10/23 03/08/23 History Allergy/AdvReac Type Severity Reaction Status Date / Time vancomycin Allergy Severe Anaphylaxis Verified 03/14/24 15:38 ceftriaxone (From Rocephin) Allergy Mild Swelling Verified 03/14/24 15:38 Family History Mother Diabetes Hypertension Father Hypertension Grandmother Diabetes Surgical History S/P ERCP S/P laparoscopic cholecystectomy History of back surgery History of tubal ligation History of appendectomy Social History household members: children and other details: fiance number of children: 3 Smoking Status: Never smoker alcohol intake: never substance use type: does not use do you feel safe at home: Yes additional social history: DOES NOT USE ASPIRIN DOES USE IBUPROFEN ROS ROS ED ROS Narrative Constitutional: Complains of fever and chills, denies headaches, lightheadedness Eyes: Denies change in vision double vision blurry vision Cardiovascular: Denies chest pain palpitations Respiratory: Denies coughing wheezing shortness of breath Abdomen: Complains of abdominal pain as well as nausea vomiting and diarrhea as noted above having difficulty tolerating oral intake : Denies any painful nature, hematuria, polyuria Neurological: Denies numbness, weakness, tingling Musculoskeletal: Complains of right-sided back pain as noted above Skin: Denies rashes or lesions EXAM Physical Exam Narrative Exam Narrative: general: Patient did appear to be uncomfortable in bed not feeling well Head: Atraumatic, normocephalic Eyes: PERRL bilaterally, EOMI bilaterally, no conjunctival injection noted Neck: Soft, supple, trachea midline Cardiovascular: Regular rate and rhythm no murmurs gallops rubs noted Respiratory: Clear to auscultation bilaterally no rales rhonchi wheeze noted Abdomen: Soft, nondistended, tenderness palpation epigastric region, no rebound or guarding on exam, bowel sounds present x 4 Musculoskeletal: Patient has right-sided CVA tenderness on exam, no midline tenderness palpation thoracic lumbar spine Extremities: +5/5 strength noted in the bilateral upper and lower extremities, no pedal edema on exam Neurological: Patient following commands that she is [facility] there is 2023 Skin: Warm, dry, intact Const Vital Signs: 03/14/24 15:38 03/14/24 17:37 Temperature 97.6 F L Temperature Source Temporal Pulse Rate 52 L 47 L Respiratory Rate 18 Blood Pressure 116/76 128/70 H Blood Pressure Mean 89 89 Pulse Ox 100 Oxygen Delivery Method Room Air MDM MDM MDM Narrative Medical decision making narrative: Patient is a 28-year-old female who presented to the emergency department with a chief complaint of abdominal pain, back pain concern for passing a kidney stone as well as generalized bodyaches and not feeling well. Patient will have a workup performed here on the differential diagnose includes but not limited to UTI, pyelonephritis, urolithiasis, nephrolithiasis, pancreatitis. Once workup is obtained and reviewed she will be reevaluated. Patient did have a cholecystectomy as well as an appendectomy. Patient given IV fluids, morphine, Zofran. Patient CBC reviewed and showed no evidence leukocytosis white blood count normal at 6.9, hemoglobin was stable 11.4, plate count normal at 234. Patient sodium normal 140, potassium was 3.4, creatinine is normal at 0.74. Patient AST and ALT were 2724 respectively. Patient's urinalysis reviewed 150 ketones, positive nitrates positive leukocyte esterase 25, revealed and showed 0-5 white cells with 2+ bacteria negative test. Patient CT abdomen pelvis with IV contrast reviewed showed mild ileus. Moderate fluid in the pelvis no radiodense urolithiasis noted but IV contrast limits sensitivity. Moderate scoliosis and Henderson rods noted. On reevaluation of the patient she states that her pain is not improved after a second dose of morphine will attempt to use IV Toradol. On reevaluation the patient and she states that she is still having significant back pain and is not getting better. Patient's case will be discussed with hospitalist for admission for intractable pain, nausea vomiting not tolerating oral intake. Patient was given a gram of Rocephin here in the emergency department tolerated this well. As based on her previous culture and sensitivities was resistant to Levaquin and ciprofloxacin as she has been on M acrobid and has apparent UTI on her urinalysis this was sent for culture. Discussed case with the hospitalist who accept patient for admission to Dr. Duran. Patient was notified with all question concerns answered. Lab Data Labs: Laboratory Results - last 24 hr 03/14/24 03/14/24 16:15 17:20 WBC 6.9 RBC 4.00 L Hgb 11.4 L Hct 35.1 L MCV 87.8 MCH 28.5 MCHC 32.5 RDW Std Deviation 40.0 RDW Coeff of Kell 12.5 Plt Count 234 MPV 11.0 Immature Gran % (Auto) 0.400 Neut % (Auto) 75.7 H Lymph % (Auto) 15.9 [place] % (Auto) 6.9 Eos % (Auto) 0.7 Baso % (Auto) 0.4 Absolute Neuts (auto) 5.2 Absolute Lymphs (auto) 1.10 Nucleated RBC % 0 Sodium 140 Potassium 3.4 L Chloride 109 H Carbon Dioxide 25.0 Anion Gap 6 BUN 5 L Creatinine 0.74 Estim Creat Clear Calc 121.09 Est GFR (MDRD) Af Amer 118 Est GFR (MDRD) Non-Af 98 BUN/Creatinine Ratio 6.8 L Glucose 86 Calcium 9.1 Magnesium 1.9 Total Bilirubin 0.50 AST 27 ALT 24 Alkaline Phosphatase 74 Total Protein 7.5 Albumin 3.9 Globulin 3.6 Albumin/Globulin Ratio 1.1 Lipase 18 Urine Color Yellow Urine Clarity Sl. Cloudy Urine pH 6.0 Ur Specific [place] 1.020 Urine Protein 30 H Urine Glucose (UA) Normal Urine Ketones 150 A* Urine Occult Blood 10 H Urine Nitrite Positive H Urine Bilirubin Negative Urine Urobilinogen 1 H Ur Leukocyte Esterase 25 H Urine RBC 0-5 SEEN Urine WBC 0-5 SEEN Ur Squamous Epith Cells 10-25 SEEN Amorphous Sediment 1+ Urine Bacteria 2+ Urine Mucus 3+ Urine Test Negative Radiography Diagnostic Testing: Clinical Impression(s) from Imaging Studies Abdomen/Pelvis CT 03/14/24 16:06 IMPRESSION: Mild ileus. Moderate fluid in the pelvis. No radiodense urolithiasis noted but intravenous contrast limits sensitivity. Moderate scoliosis and Henderson rods. Electronically Signed: Salvatore Cain MD at 18:16 EDT , Discharge Plan Disposition Disposition: Acute Care Hospital [facility] Discharge Date/Time: 03/14/24 20:37
[2024-03-14] MEDS: Ondansetron 4 MG/2 ML Vial IV (16:19)
[2024-03-14] MEDS: 0.9% Normal Saline (1000mL) 1,000 ML 999 ML IV (16:19)
[2024-03-14] MEDS: Morphine 4 MG/ML Syringe IV ×2 (16:20→17:18)
[2024-03-14 16:28] LABS: Absolute Neutrophil Count 5.2 X10^3/uL (2.0-7.7); Basophil# 0.03 X10^3/uL; Basophil% 0.4 % (0-1); Eosinophil# 0.05 X10^3/uL; Eosinophils% 0.7 % (0-5); Hematocrit 35.1 % (37-47); Hemoglobin 11.4 g/dL (12.0-15.0); Lymphocyte % 15.9 % (19-41); Mean Corp Hgb Conc 32.5 g/dL (32-36); Mean Corpuscular Hgb 28.5 pg (27.0-32.0); Mean Corpuscular Volume 87.8 fL (81-99); Monocyte# 0.48 X10^3/uL; Monocyte% 6.9 % (0-10); NRBC Flagged by Analyzer 0 % (0-5); Neutrophil # 5.24 X10^3/uL (2.7-7.7); Neutrophil % 75.7 % (47-70); Platelet Count 234 K/mm3 (150-450); RBC Distribution Width CV 12.5 % (11.6-14.6); White Blood Count 6.9 K/mm3 (4.4-11.0)
[2024-03-14 17:00] LABS: ALB/GLOB Ratio 1.1 RATIO (0.9-2.4); AST(SGOT) 27 U/L (15-37); Alanine Aminotransfer ALT/SGPT 24 U/L (13-56); Albumin, Serum 3.9 g/dL (3.2-5.0); Alkaline Phosphatase 74 U/L (45-117); Anion Gap 6 (5-15); BUN 5 mg/dL (7-18); BUN/Creat Ratio 6.8 RATIO (10-20); Calcium,Total 9.1 mg/dL (8.5-10.1); Chloride 109 mmol/L (98-107); Creatinine, Serum 0.74 mg/dL (0.55-1.02); EST Glomerular Filtration Rate 98 mL/min (>60); Est Glom Filt Rate - Afr Amer 118 mL/min (>60); Estimated Creatinine Clearance 121.09 ml/min; Globulin 3.6 g/dL (2.2-4.2); Glucose 86 mg/dL (74-106); Lipase 18 U/L (13-75); Potassium 3.4 mmol/L (3.5-5.1); Protein, Total 7.5 g/dL (6.4-8.2); Sodium Level 140 mmol/L (136-145)
[2024-03-14 17:28] LABS: Color, Urine Yellow (Yellow); Glucose, Dipstick Normal (Normal); Leukocyte Esterase-Dipstick 25 /ul (Negative); Nitrite-Dipstick Positive (Negative); Occult Blood-Urine 10 /ul (Negative); Protein-Dipstick 30 mg/dl (Negative); Urine Bilirubin Dipstick Negative (Negative); Urine Clarity Sl. Cloudy (Clear); Urine Urobilinogen 1 mg/dl (Normal)
[2024-03-14 17:31] LABS: Ketone-Dipstick 150 mg/dl (Negative)
[2024-03-14 17:33] LABS: Amorphous Sediment 1+; Bacteria 2+ /hpf (None Seen); Mucous, Urine 3+ /hpf (<or=2+); Red Blood Cells-Urine 0-5 SEEN /hpf (0-5); Squamous Epithelial Cells - UA 10-25 SEEN /hpf (5-10); White Blood Cells 0-5 SEEN /hpf (0-5)
[2024-03-14 17:34] LABS: Internal QC Validated? YES +Cl - CLEAR BKGD; Pregnancy, Urine Negative Negative
[2024-03-14 17:37] VITALS: BP 128/70; PULSE 47
[2024-03-14] MEDS: Ketorolac 30 MG/ML Syringe IV (18:35)
--- NOTE | 2024-03-14 19:41 | HP.PCM.HOS_ITS ---
HPI - General General Date of Admission: 03/14/24 Date of Service: 03/14/24 Chief Complaint: N/V, intractable back pain, recent UTI Dx. HPI Narrative The patient is a 28 y/o F w/ PMHx: Chronic bradycardia, Obesity, Anxiety and Depression, Chronic back pain with hardware, Hx Nephrolithiasis, Hx Cholelithiasis s/p ERCP/Cholecystectomy who presents to the [facility] ED on 03/14/24 with history of lumbar back discomfort, nausea and emesis with inability to tolerate any oral intake with presentation the week prior and evaluated for possible urinary tract infection at that time placed on Macrobid and despite this ongoing discomfort as well as noted GI side effects and concerns given worsened right back discomfort possible kidney stone prompting repeat ED evaluation. In addition she reports having subjective fevers and chills. She also reports loose stools at least 4-5 daily for the last 2 weeks in addition. Upon initial presentation patient did have marked dysuria and increased urinary frequency. Workup in the ED included T97.6, heart rate 52, BP 116/76, respiratory rate 18, 100% on room air, CBC with WBC 6.9, hemoglobin 1.4, MCV 87.8, platelet 234 without marked shift, CMP with potassium 3.4, chloride 109, BUN/creatinine 5/0.74, GFR 98 with similar baseline previous levels noted, unremarkable hepatic profile, lipase 18, urinalysis cloudy, specific remedy 1.020, protein 30, ketones 150, occult blood 10, positive nitrate, leukocyte Estrace 25, 0-5 urine RBCs and WBCs with 2+ urine bacteria, negative urine testing, urine culture pending per ED, CT abdomen pelvis with evidence of mild ileus, moderate fluid in the pelvis, no radiodense urolithiasis noted, moderate scoliosis and Henderson rods present. Most recent prior urine culture with growth noted 01/09/2024 with E. coli however this was 11-25,000 and had sensitivity to all but ciprofloxacin and levofloxacin. 03/08/2024 urine culture with noted 80,000-100,000 mixed gram-positive and gram-negative organisms with mixed contaminants with no repeat culture noted. Blood cultures from that same day 03/08/2024 demonstrate no growth and unremarkable. In the ED patient administered 1 L normal saline, Toradol 30 mg IV x 1, morphine 4 mg IV x 2, Zofran 4 mg IV x 1 as well as rocephin IV x 1. [facility] Medical History Iron deficiency anemia Obesity Migraine Kidney stones Anxiety and depression Back problem Home Medications ?Medication ?Instructions ?Recorded ?Last Taken ?Type alprazolam 0.25 mg tablet 0.25 mg PO BID PRN Anxiety 12/08/22 03/09/23 History fluoxetine 20 mg capsule (Prozac) 20 mg PO DAILY ANXIETY 12/08/22 03/08/23 History fluoxetine 40 mg capsule 40 mg PO DAILY ANXIETY 03/10/23 03/08/23 History ciprofloxacin HCl 500 mg tablet 500 mg PO BID #14 TABLETS 03/25/23 Unknown Rx oxycodone-acetaminophen 5 mg-325 1 tab PO Q6H PRN PRN Pain 3 days 03/25/23 Unknown Rx mg tablet #12 TABLETS dicyclomine 20 mg tablet 20 mg PO BID #14 tabs 04/27/23 Unknown Rx ondansetron 4 mg disintegrating 4 mg PO Q8H PRN PRN Nausea #10 tabs 04/27/23 Unknown Rx tablet naproxen 500 mg tablet (Naprosyn) 500 mg PO BID PRN pain #20 tabs 07/19/23 Unknown Rx hydrocodone-acetaminophen 5-325mg 1 tab PO Q6H PRN PRN Pain 3 days 10/22/23 Unknown Rx 5mg-325mg #10 TABLETS ondansetron 4 mg disintegrating 4 mg PO Q8H PRN Nausea #10 tabs 10/22/23 Unknown Rx tablet sulfamethoxazole 800 1 tab PO BID #14 tabs 01/09/24 Unknown Rx mg-trimethoprim 160 mg tablet (Bactrim DS) nitrofurantoin 100 mg PO Q12 #14 CAPSULES 03/08/24 Unknown Rx monohydrate/macrocrystals 100 mg capsule Allergy/AdvReac Type Severity Reaction Status Date / Time vancomycin Allergy Severe Anaphylaxis Verified 03/14/24 15:38 ceftriaxone (From Rocephin) Allergy Mild Swelling Verified 03/14/24 15:38 Family History Mother Diabetes Hypertension Father Hypertension Grandmother Diabetes Surgical History S/P ERCP S/P laparoscopic cholecystectomy History of back surgery History of tubal ligation History of appendectomy Social History household members: children and other details: fiance number of children: 3 Smoking Status: Never smoker alcohol intake: never substance use type: does not use do you feel safe at home: Yes additional social history: DOES NOT USE ASPIRIN DOES USE IBUPROFEN ROS ROS Narrative Admission Review of Systems: CONSTITUTIONAL: No weight loss, + subjective fever, chills, weakness or fatigue. HEENT: Eyes: No visual loss, blurred vision, double vision or yellow sclerae. Ears, Nose, Throat: No hearing loss, sneezing, congestion, runny nose or sore throat. SKIN: No rash or itching, lesions, wounds. CARDIOVASCULAR: No chest pain, chest pressure or chest discomfort, palpitations, edema, orthopnea, syncopal events. RESPIRATORY: No shortness of breath, cough or sputum, wheezing, hemoptysis. GASTROINTESTINAL: + anorexia, nausea, vomiting, diarrhea, abdominal cramping. No severe abdominal pain but does have flank pain as noted. No melena, BRBPR. GENITOURINARY: + Recent history dysuria, flank pain, frequency. No retention. NEUROLOGICAL: No headache, dizziness, syncope, paralysis, ataxia, numbness or tingling in the extremities, focal weakness, change in bowel or bladder control, seizure. MUSCULOSKELETAL: + muscle, back pain, joint pain or stiffness. HEMATOLOGIC: + Chronic anemia. No easy bleeding/bruising. LYMPHATICS: No enlarged nodes. No history of splenectomy. PSYCHIATRIC: + History of anxiety and depression. ENDOCRINOLOGIC: + reports of sweating, cold or heat intolerance. No polyuria or polydipsia. ALLERGIES: No history of asthma, hives, eczema or rhinitis. Vital Signs Vital Signs Vital Signs: 03/14/24 15:38 03/14/24 17:37 Temperature 97.6 F L Temperature Source Temporal Pulse Rate 52 L 47 L Respiratory Rate 18 Blood Pressure 116/76 128/70 H Blood Pressure Mean 89 89 Pulse Ox 100 Oxygen Delivery Method Room Air Weight Weight: 184 lb 3.2 oz Body Mass Index (BMI) 29.7 Physical Exam Narrative Physical Examination: General: Awake, alert, oriented x 3 and cooperative, seated upright in ED bed, fatigued appearing. Skin: Normal color, normal turgor, no icterus, no cyanosis except occasional abrasion, staged ecchymoses. HEENT: AT/NC, EOMI, PERRLA, MMM, no carotid bruits or JVD noted. Lungs: CTA bilaterally, moderate effort, mild decrease BL bases, no rales, ronchi or wheezing. Heart: Bradycardic with regular rhythm; no gallop, rub audible. Abdomen: Soft, obese, no marked tenderness to palpation morning suprapubic discomfort despite presentation complaints, ND, mildly hyperactive BS, no appreciated HSM. Extremities: No cyanosis, clubbing, or edema. Neurological: Patient awake, alert, oriented as noted, cognitive function intact; pupils equally reactive to light and accommodation, cranial nerves grossly normal, moving all 4 extremities, no focal deficits, strength moderately globally decreased secondary to acute presentation complaints Psychiatric: Affect appears fatigued, ill-appearing, no acute evidence of depressive or anxiety feelings but does have underlying history. Results Lab / Micro Data 03/14/24 16:15 03/14/24 16:15 Labs: Laboratory Results - last 24 hr 03/14/24 16:15: WBC 6.9, RBC 4.00 L, Hgb 11.4 L, Hct 35.1 L, MCV 87.8, MCH 28.5, MCHC 32.5, RDW Std Deviation 40.0, RDW Coeff of Kell 12.5, Plt Count 234, MPV 11.0, Immature Gran % (Auto) 0.400, Neut % (Auto) 75.7 H, Lymph % (Auto) 15.9 L, Toombs % (Auto) 6.9, Eos % (Auto) 0.7, Baso % (Auto) 0.4, Absolute Neuts (auto) 5.2, Absolute Lymphs (auto) 1.10, Nucleated RBC % 0, Sodium 140, Potassium 3.4 L , Chloride 109 H, Carbon Dioxide 25.0, Anion Gap 6, BUN 5 L, Creatinine 0.74, Estim Creat Clear Calc 121.09, Est GFR (MDRD) Af Amer 118, Est GFR (MDRD) Non-Af 98, BUN/Creatinine Ratio 6.8 L, Glucose 86, Calcium 9.1, Total Bilirubin 0.50, AST 27, ALT 24, Alkaline Phosphatase 74, Total Protein 7.5, Albumin 3.9, Globulin 3.6, Albumin/Globulin Ratio 1.1, Lipase 18 03/14/24 17:20: Urine Color Yellow, Urine Clarity Sl. Cloudy, Urine pH 6.0, Ur Specific Pierce 1.020, Urine Protein 30 H, Urine Glucose (UA) Normal, Urine Ketones 150 A*, Urine Occult Blood 10 H, Urine Nitrite Positive H, Urine Bilirubin Negative, Urine Urobilinogen 1 H, Ur Leukocyte Esterase 25 H, Urine RBC 0-5 SEEN, Urine WBC 0-5 SEEN, Ur Squamous Epith Cells 10-25 SEEN, Amorphous Sediment 1+, Urine Bacteria 2+, Urine Mucus 3+, Urine Test Negative Imaging Radiology Impression Abdomen/Pelvis CT 03/14/24 16:06 IMPRESSION: Mild ileus. Moderate fluid in the pelvis. No radiodense urolithiasis noted but intravenous contrast limits sensitivity. Moderate scoliosis and Henderson rods. Electronically Signed: Salvatore Cani MD at 18:16 EDT , Assessment & Plan Assessment/Plan (1) Urinary tract infection: PLAN: Plan The patient is a 28 y/o F w/ PMHx: Chronic anemia/Fe deficiency anemia, Chronic bradycardia, Obesity, Anxiety and Depression, Chronic back pain with hardware, Hx Nephrolithiasis, Hx Cholelithiasis s/p ERCP/Cholecystectomy who presents to the [facility] ED on 03/14/24 with history of lumbar back discomfort, nausea and emesis with inability to tolerate any oral intake with presentation the week prior and evaluated for possible urinary tract infection at that time placed on Macrobid and despite this ongoing discomfort as well as noted GI side effects and concerns given worsened right back discomfort possible kidney stone prompting repeat ED evaluation. #1. Acute Complicated Urinary Tract Infection with nausea, emesis, poor oral intake tolerance, acute on chronic back pain associated with concern for failure of outpatient abx therapy: Will admit to [facility] upon ED evaluation remarkable, pending UCx, continue IVFs, monitor I/Os, continue IV Rocephin w/ transition as able pending sensitivities and speciation, clears until N/V improving then ADAT. To be safe also with recent diarrhea will obtain C. difficile and enteric to be cautious given recent antibiotic therapies. Given patient history and complaints of frequent urinary tract infections especially over the last year would be a great candidate for referral to urology at discharge. #2. Hypokalemia: Admission K+ 3.4, magnesium level requested, supplementation given, repeat level in AM. #3. Acute on chronic back pain, exacerbated by #1: Secondary to acute UTI on chronic back issues as noted, maintain on fall precautions, frequent positioning, initiate IV toradol scheduled given appropriate renal function, lidoacine patches, tizanidine, po/IV narcotic pain regimen, #4. Chronic normocytic anemia/Fe deficiency anemia: Admission hemoglobin 11.4, MCV 87.8, baseline hemoglobin has varied but in the past has been down in the 10-11 range although most recently primarily has been 12-14, most recently 03/08/2024 hemoglobin 14.2, potentially altered given dehydrated appearance, will continue to trend CBC. From current list does not appear to be on any iron supplementation. #5. Anxiety and depression: We will continue patient home fluoxetine and clarifying if patient is still on low-dose as needed twice daily alprazolam regimen as it appears the last fill for this was 03/30/2023 but uncertain. #6. Chronic bradycardia: Patient with stable bradycardia, reviewed from previous and at this point nonconcerning. #7. Obesity: Weight loss and lifestyle changes encouraged. #8. DVT prophylaxis: Low risk for type of admission, encourage ambulation. Charges/Coding Visit Charges Inpatient E&M: 13377 Init Hosp L3
[2024-03-14 20:22] VITALS: BP 120/78; PULSE 76; RESP 18; TEMP 36.7; O2SAT 97
[2024-03-14 20:26] LABS: Magnesium 1.9 mg/dL (1.6-2.6)
[2024-03-14 20:49] VITALS: BMI 30.5
[2024-03-14 20:54] VITALS: BP 131/78; PULSE 64; RESP 14; TEMP 36.7; O2SAT 100
[2024-03-14] MEDS: Acetaminophen 325 MG Tablet 650 MG PO (21:34)
[2024-03-14] MEDS: Ceftriaxone 1 GM/50 mL Premix x1 IV (21:34)
[2024-03-14] MEDS: Potassium Chloride Oral Tablet 20 MEQ 40 MEQ PO (21:34)
[2024-03-14] MEDS: 0.9% Normal Saline (1000mL) 1,000 ML 125 ML IV (21:34)
[2024-03-14] MEDS: tiZANidine HCl 2 MG Tablet 4 MG PO (21:35)
[2024-03-14] MEDS: Dicyclomine 10 MG Capsule 20 MG PO (21:35)
[2024-03-14] MEDS: Lidocaine 5% Patch 2 PATCH TOPICAL (21:36)
[2024-03-14] MEDS: traZODone 50 MG Tablet PO (21:36)
[2024-03-15 04:48] VITALS: BP 106/72; PULSE 52; RESP 14; TEMP 36.6; O2SAT 98
[2024-03-15] MEDS: Ondansetron 4 MG/2 ML Vial IV (04:54)
[2024-03-15] MEDS: Ketorolac 30 MG/ML Syringe IV ×3 (04:54→21:49)
[2024-03-15] MEDS: 0.9% Normal Saline (1000mL) 1,000 ML 125 ML IV (04:55)
[2024-03-15] MEDS: tiZANidine HCl 2 MG Tablet PO (04:55)
[2024-03-15 06:04] LABS: Absolute Lymphocyte Count 2.02 X10^3/uL (0.83-4.51); Absolute Neutrophil Count 2.2 X10^3/uL (2.0-7.7); Basophil# 0.02 X10^3/uL; Basophil% 0.4 % (0-1); Eosinophil# 0.08 X10^3/uL; Eosinophils% 1.7 % (0-5); Hematocrit 31.3 % (37-47); Hemoglobin 10.2 g/dL (12.0-15.0); Lymphocyte # 2.02 X10^3/ul (0.83-4.51); Lymphocyte % 42.6 % (19-41); Mean Corp Hgb Conc 32.6 g/dL (32-36); Mean Corpuscular Hgb 28.9 pg (27.0-32.0); Mean Corpuscular Volume 88.7 fL (81-99); Mean Platelet Vol. 11.5 fl (6.2-12.0); Monocyte# 0.42 X10^3/uL; Monocyte% 8.9 % (0-10); NRBC Flagged by Analyzer 0 % (0-5); Neutrophil # 2.19 X10^3/uL (2.7-7.7); Neutrophil % 46.2 % (47-70); Platelet Count 192 K/mm3 (150-450); RBC Distribution Width CV 12.7 % (11.6-14.6); RBC Distribution Width SD 41.5 fl (35.1-43.9); Red Blood Count 3.53 M/mm3 (4.2-5.4); White Blood Count 4.7 K/mm3 (4.4-11.0)
[2024-03-15 06:30] LABS: AST(SGOT) 21 U/L (15-37); Alanine Aminotransfer ALT/SGPT 28 U/L (13-56); Alkaline Phosphatase 58 U/L (45-117); Anion Gap 7 (5-15); BUN 4 mg/dL (7-18); BUN/Creat Ratio 6.7 RATIO (10-20); Calcium,Total 8.5 mg/dL (8.5-10.1); Chloride 108 mmol/L (98-107); Creatinine, Serum 0.59 mg/dL (0.55-1.02); EST Glomerular Filtration Rate 126 mL/min (>60); Est Glom Filt Rate - Afr Amer 152 mL/min (>60); Estimated Creatinine Clearance 153.85 ml/min; Glucose 88 mg/dL (74-106); Potassium 3.1 mmol/L (3.5-5.1); Sodium Level 140 mmol/L (136-145)
[2024-03-15] MEDS: Ceftriaxone 1 GM/50 ML BAG IV (09:26)
[2024-03-15] MEDS: FLUoxetine 20 MG Capsule 60 MG PO (09:40)
[2024-03-15] MEDS: Dicyclomine 10 MG Capsule 20 MG PO ×2 (09:40→21:50)
--- NOTE | 2024-03-15 09:46 | PCM.PN.HOSP ---
Reason for Visit Reason for Visit: Diagnoses Urinary tract infection, site not specified (03/14/24) Objective Data Objective Data Vital Signs: Vital Signs Temp Pulse Resp BP Pulse Ox O2 Del Method 98 F 52 L 14 106/72 98 Room Air 03/15/24 04:48 03/15/24 04:48 03/15/24 04:48 03/15/24 04:48 03/15/24 04:48 03/15/24 07:50 Oxygen Delivery Method Room Air Weight: 189 lb 2.506 oz Body Mass Index (BMI) 30.5 Intake & Output: Intake and Output for Last 24 Hours 03/13/24 03/14/24 03/15/24 23:59 23:59 23:59 Intake Total 1050 / 1800 Balance 1050 / 1800 Lab / Micro Data 03/15/24 05:15 03/15/24 05:15 Labs: Laboratory Results - last 24 hr 03/14/24 16:15: WBC 6.9, RBC 4.00 L, Hgb 11.4 L, Hct 35.1 L, MCV 87.8, MCH 28.5, MCHC 32.5, RDW Std Deviation 40.0, RDW Coeff of Kell 12.5, Plt Count 234, MPV 11.0, Immature Gran % (Auto) 0.400, Neut % (Auto) 75.7 H, Lymph % (Auto) 15.9 L, Saunders % (Auto) 6.9, Eos % (Auto) 0.7, Baso % (Auto) 0.4, Absolute Neuts (auto) 5.2, Absolute Lymphs (auto) 1.10, Nucleated RBC % 0, Sodium 140, Potassium 3.4 L, Chloride 109 H, Carbon Dioxide 25.0, Anion Gap 6, BUN 5 L, Creatinine 0.74, Estim Creat Clear Calc 121.09, Est GFR (MDRD) Af Amer 118, Est GFR (MDRD) Non-Af 98, BUN/Creatinine Ratio 6.8 L, Glucose 86, Calcium 9.1, Magnesium 1.9, Total Bilirubin 0.50, AST 27, ALT 24, Alkaline Phosphatase 74, Total Protein 7.5, Albumin 3.9, Globulin 3.6, Albumin/Globulin Ratio 1.1, Lipase 18 03/14/24 17:20: Urine Color Yellow, Urine Clarity Sl. Cloudy, Urine pH 6.0, Ur Specific Laurel 1.020, Urine Protein 30 H, Urine Glucose (UA) Normal, Urine Ketones 150 A*, Urine Occult Blood 10 H, Urine Nitrite Positive H, Urine Bilirubin Negative, Urine Urobilinogen 1 H, Ur Leukocyte Esterase 25 H, Urine RBC 0-5 SEEN, Urine WBC 0-5 SEEN, Ur Squamous Epith Cells 10-25 SEEN, Amorphous Sediment 1+, Urine Bacteria 2+, Urine Mucus 3+, Urine Test Negative 03/15/24 05:15: WBC 4.7, RBC 3.53 L, Hgb 10.2 L, Hct 31.3 L, MCV 88.7, MCH 28.9, MCHC 32.6, RDW Std Deviation 41.5, RDW Coeff of Kell 12.7, Plt Count 192, MPV 11.5, Immature Gran % (Auto) 0.200, Neut % (Auto) 46.2 L, Lymph % (Auto) 42.6 H, Saunders % (Auto) 8.9, Eos % (Auto) 1.7, Baso % (Auto) 0.4, Absolute Neuts (auto) 2.2, Absolute Lymphs (auto) 2.02, Nucleated RBC % 0, Sodium 140, Potassium 3.1 L, Chloride 108 H, Carbon Dioxide 25.0, Anion Gap 7, BUN 4 L, Creatinine 0.59, Estim Creat Clear Calc 153.85, Est GFR (MDRD) Af Amer 152, Est GFR (MDRD) Non-Af 126, BUN/Creatinine Ratio 6.7 L, Glucose 88, Calcium 8.5, Total Bilirubin 0.20, AST 21, ALT 28, Alkaline Phosphatase 58, Total Protein 6.0 L, Albumin 3.0 L, Globulin 3.0, Albumin/Globulin Ratio 1.0 Radiography Diagnostic Testing: Radiology Impression Abdomen/Pelvis CT 03/14/24 16:06 IMPRESSION: Mild ileus. Moderate fluid in the pelvis. No radiodense urolithiasis noted but intravenous contrast limits sensitivity. Moderate scoliosis and Henderson rods. Electronically Signed: Salvatore Cain MD at 18:16 EDT Reading Location ID and State: [facility] / [place] Tel , Service support , Physical Exam Narrative Seen and examined. Patient complaining of mid abdominal pain extending from the epigastrium to hypogastrium. She also complained of pain over left renal angle and lower back. She has a history of scoliosis and had Henderson anne-marie in the back at young age. Physical exam General: Alert, Oriented x3, Cooperative HEENT: Atraumatic, PERRLA, EOMI, Normocephalic Oral: No Gingival or Mucosal Lesions/ Ulcerations Neck: Supple, No JVD, Negative Carotid Bruits Chest wall/Lungs: Air entry diminished in bilateral lung bases. No crepitation/rhonchi Cardiovascular: Regular rate, Regular Rhythm, Normal S1, Normal S2, No M/G/R Abdomen: Bowel Sounds Present, Soft, mild tenderness around epigastric umbilical and hypogastric region. Non-Distended : Tenderness present on left renal angle. dysuria present. Mild suprapubic tenderness. Extremities: No edema, Capillary Refill Less than 3 Seconds Skin: No rashes, No breakdown Musculoskeletal: No Tenderness to Palpation of Joints or Extremities Spine: Lower thoracic surgical scar with Henderson anne-marie. Scoliosis. Neurological: Cranial nerves II-XII grossly intact, DTR 2+/4. No acute focal neurological deficit. Psych/Mental Status: Normal Affect, Appropriate. Assessment & Plan Assessment/Plan (1) Urinary tract infection: PLAN: Plan The patient is a 28 y/o F who was admitted with back/lumbar discomfort with nausea vomiting poor oral intake and mid abdominal pain. She did not respond with Macrobid for UTI prescribed a week ago #1 acute nausea, emesis, poor oral intake tolerance, probably due to ileus: [facility] abdomen with IV contrast was done which shows air-fluid level in the small bowel. Normal colon. Normal visualized stomach. Normal liver. Normal gallbladder and extrahepatic biliary system. Normal spleen and pancreas. On IV ceftriaxone. Urine culture shows no growth. Previous urine culture on 03/08 shows mixed gram-positive and gram-negative organism 80,000?100,000 colonies. UTI is ruled out. Stool for C. difficile and enteric bacterial panel ordered. #2. Hypokalemia: Admission K+ 3.4, magnesium level requested, supplementation given, repeat level in AM. #3. Acute on chronic back pain,: Unclear reason. CT abdomen shows normal right and left kidney. Normal urinary bladder. Uterus normal. Moderate fluid in the pelvis. #4. Chronic normocytic anemia/Fe deficiency anemia: Admission hemoglobin 11.4, MCV 87.8, repeat hemoglobin 10.2/31.3. No significant drop in H&H. #5. Anxiety and depression: continue patient home fluoxetine and clarifying if patient is still on low-dose as needed twice daily alprazolam regimen as it appears the last fill for this was 03/30/2023 but uncertain. #6. Chronic bradycardia: Patient with stable bradycardia, reviewed from previous and at this point nonconcerning. #7. Obesity: Weight loss and lifestyle changes encouraged. #8. DVT prophylaxis: Low risk for type of admission, encourage ambulation. Microbiology Past 72 Hours 03/14/24 17:20 Urine, Clean Catch Urine Culture - Preliminary Culture exhibits no growth. Laboratory Results 03/14/24 16:15: WBC 6.9, RBC 4.00 L, Hgb 11.4 L, Hct 35.1 L, MCV 87.8, MCH 28.5, MCHC 32.5, RDW Std Deviation 40.0, RDW Coeff of Kell 12.5, Plt Count 234, MPV 11.0, Immature Gran % (Auto) 0.400, Neut % (Auto) 75.7 H, Lymph % (Auto) 15.9 L, Saunders % (Auto) 6.9, Eos % (Auto) 0.7, Baso % (Auto) 0.4, Absolute Neuts (auto) 5.2, Absolute Lymphs (auto) 1.10, Nucleated RBC % 0, Sodium 140, Potassium 3.4 L, Chloride 109 H, Carbon Dioxide 25.0, Anion Gap 6, BUN 5 L, Creatinine 0.74, Estim Creat Clear Calc 121.09, Est GFR (MDRD) Af Amer 118, Est GFR (MDRD) Non-Af 98, BUN/Creatinine Ratio 6.8 L, Glucose 86, Calcium 9.1, Magnesium 1.9, Total Bilirubin 0.50, AST 27, ALT 24, Alkaline Phosphatase 74, Total Protein 7.5, Albumin 3.9, Globulin 3.6, Albumin/Globulin Ratio 1.1, Lipase 18 03/14/24 17:20: Urine Color Yellow, Urine Clarity Sl. Cloudy, Urine pH 6.0, Ur Specific Laurel 1.020, Urine Protein 30 H, Urine Glucose (UA) Normal, Urine Ketones 150 A*, Urine Occult Blood 10 H, Urine Nitrite Positive H, Urine Bilirubin Negative, Urine Urobilinogen 1 H, Ur Leukocyte Esterase 25 H, Urine RBC 0-5 SEEN, Urine WBC 0-5 SEEN, Ur Squamous Epith Cells 10-25 SEEN, Amorphous Sediment 1+, Urine Bacteria 2+, Urine Mucus 3+, Urine Test Negative 03/15/24 05:15: WBC 4.7, RBC 3.53 L, Hgb 10.2 L, Hct 31.3 L, MCV 88.7, MCH 28.9, MCHC 32.6, RDW Std Deviation 41.5, RDW Coeff of Kell 12.7, Plt Count 192, MPV 11.5, Immature Gran % (Auto) 0.200, Neut % (Auto) 46.2 L, Lymph % (Auto) 42.6 H, Saunders % (Auto) 8.9, Eos % (Auto) 1.7, Baso % (Auto) 0.4, Absolute Neuts (auto) 2.2, Absolute Lymphs (auto) 2.02, Nucleated RBC % 0, Sodium 140, Potassium 3.1 L, Chloride 108 H, Carbon Dioxide 25.0, Anion Gap 7, BUN 4 L, Creatinine 0.59, Estim Creat Clear Calc 153.85, Est GFR (MDRD) Af Amer 152, Est GFR (MDRD) Non-Af 126, BUN/Creatinine Ratio 6.7 L, Glucose 88, Calcium 8.5, Total Bilirubin 0.20, AST 21, ALT 28, Alkaline Phosphatase 58, Total Protein 6.0 L, Albumin 3.0 L, Globulin 3.0, Albumin/Globulin Ratio 1.0 Clinical Impression(s) from Imaging Studies Abdomen/Pelvis CT 03/14/24 16:06 IMPRESSION: Mild ileus. Moderate fluid in the pelvis. No radiodense urolithiasis noted but intravenous contrast limits sensitivity. Moderate scoliosis and Henderson rods. Electronically Signed: Salvatore Cain MD at 18:16 EDT , Charges/Coding Visit Charges Inpatient E&M: 79590 Subs Hosp L2
[2024-03-15 09:47] VITALS: BP 108/72; PULSE 100; RESP 18; TEMP 36.7; O2SAT 98
[2024-03-15 09:50] VITALS: BP 108/72; PULSE 54; RESP 18; TEMP 36.7; O2SAT 100
[2024-03-15] MEDS: Morphine 2 MG/ML Syringe IV (12:52)
[2024-03-15] MEDS: 0.9% Saline Lock 10 ML Syringe IV (12:52)
[2024-03-15 16:00] VITALS: BP 114/79; PULSE 48; RESP 18; TEMP 37.1; O2SAT 98
[2024-03-15] MEDS: Potassium Chloride Oral Tablet 20 MEQ 40 MEQ PO (17:42)
[2024-03-15 21:43] VITALS: BP 121/73; PULSE 58; RESP 15; TEMP 36.7; O2SAT 99
[2024-03-15] MEDS: Lidocaine 5% Patch 2 PATCH TOPICAL (21:50)
[2024-03-15 22:00] VITALS: RESP 15
[2024-03-16 03:47] VITALS: BP 121/73; PULSE 55; RESP 15; TEMP 37.2; O2SAT 97
[2024-03-16 04:00] VITALS: RESP 15
[2024-03-16 04:59] VITALS: BMI 30.3
[2024-03-16] MEDS: Ketorolac 30 MG/ML Syringe IV ×2 (06:25→14:42)
[2024-03-16] MEDS: Ondansetron 4 MG/2 ML Vial IV (09:19)
[2024-03-16] MEDS: 0.9% Saline Lock 10 ML Syringe IV ×2 (09:20→20:28)
[2024-03-16 10:00] VITALS: BP 137/70; PULSE 51; RESP 18; TEMP 37.1; O2SAT 98
--- NOTE | 2024-03-16 10:08 | US_ITS ---
INDICATION: renal angle pain EXAMINATION: Ultrasound US Kidney(s) complete (eg, kidneys and bladder) TECHNIQUE: Rios scale and color doppler images were obtained of the kidneys. COMPARISON: Prior study dated: CT from 03/14/2024 FINDINGS: RIGHT KIDNEY: 11.5 x 6.1 x 4 cm. There is no hydronephrosis. There is an upper pole 0.4 cm calculus. No focal lesion or perinephric collection is demonstrated. LEFT KIDNEY: 10.5 x 4.7 x 4.4 cm. Extrarenal pelvis noted. There is no hydronephrosis. No shadowing calculus, focal lesion or perinephric collection is demonstrated. URINARY BLADDER: Partially distended. The right ureteral jet is visualized. The left is not. No wall thickening. There is some free fluid seen in the pelvis. US/Kidney and Bladder IMPRESSION: No hydronephrosis. Nonobstructing right renal calculus noted. Electronically Signed: Nolan Camargo MD at 8:48 EDT ,
[2024-03-16 10:09] LABS: Anion Gap 3 (5-15); BUN 5 mg/dL (7-18); BUN/Creat Ratio 8.2 RATIO (10-20); Calcium,Total 8.6 mg/dL (8.5-10.1); Chloride 114 mmol/L (98-107); Creatinine, Serum 0.61 mg/dL (0.55-1.02); EST Glomerular Filtration Rate 121 mL/min (>60); Est Glom Filt Rate - Afr Amer 146 mL/min (>60); Estimated Creatinine Clearance 148.72 ml/min; Glucose 89 mg/dL (74-106); Potassium 4.4 mmol/L (3.5-5.1); Sodium Level 141 mmol/L (136-145)
[2024-03-16] MEDS: Pantoprazole Sodium 40 MG in 0.9% Normal Saline (100mL MB+) 100 ML 330 MG IV ×2 (12:24→20:30)
[2024-03-16] MEDS: Potassium Chloride Oral Soln 20 MEQ/15 ML UDC 40 MEQ PO (12:25)
[2024-03-16] MEDS: Dicyclomine 10 MG Capsule 20 MG PO ×4 (12:33→20:28)
--- NOTE | 2024-03-16 15:02 | CASEMGMT ---
ÁLVARO MASTERSON Assessment Face to Face with patient for initial transition planning/care coordination assessment. RN CM introduced self and role at [facility] [place], pt voices understanding. Pt is A&Ox4 and is resting comfortably in bed and is calm. Care providers, pharmacy, and demographics verified. Admitting dx: UTI LACE Strata: 2 PCP: Dario Poe Specialists: Denies Preferred Pharmacy: [facility] [place] Insurance: CHAR/[employer] Prescription Benefit: Yes LNOK: Karoline Delgadillo (SM) Living Arrangements: Pt lives with her 3 children (Ages 10,8, & 6) on the second floor of an apartment with 7 steps to enter. Pt family is currently watching her children. ADLs/IADLs: Ind Transportation: Self, SO, CAROL. 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 Pt unsure of the HH Agency. Denies SNF Pt?s goal: Home Plan: Home once medically ready. Pt denies further needs at this time and states that she feels safe returning home once she is medically cleared. CM to follow. Bernardino Solares RN, CM
[2024-03-16 16:00] VITALS: BP 131/75; PULSE 50; RESP 18; TEMP 37; O2SAT 98
--- NOTE | 2024-03-16 16:50 | PN.HOSP_ITS ---
Reason for Visit Reason for Visit: Diagnoses Urinary tract infection, site not specified (03/15/24) Objective Data Objective Data Vital Signs: Vital Signs Temp Pulse Resp BP Pulse Ox O2 Del Method 98.9 F 55 L 15 121/73 H 97 Room Air 03/16/24 03:47 03/16/24 03:47 03/16/24 04:00 03/16/24 03:47 03/16/24 03:47 03/16/24 04:00 Oxygen Delivery Method Room Air Weight: 188 lb 14.978 oz Body Mass Index (BMI) 30.3 Intake & Output: Intake and Output for Last 24 Hours 03/14/24 03/15/24 03/16/24 23:59 23:59 23:59 Intake Total 1050 / 1800 4718.75 / 4718.75 110 / 110 Balance 1050 / 1800 4718.75 / 4718.75 110 / 110 Lab / Micro Data 03/15/24 05:15 03/16/24 09:27 Labs: Laboratory Results - last 24 hr 03/16/24 09:27: Sodium 141, Potassium 4.4, Chloride 114 H, Carbon Dioxide 24.0, Anion Gap 3 L, BUN 5 L, Creatinine 0.61, Estim Creat Clear Calc 148.72, Est GFR (MDRD) Af Amer 146, Est GFR (MDRD) Non-Af 121, BUN/Creatinine Ratio 8.2 L, Glucose 89, Calcium 8.6 Micro: Microbiology 03/14/24 17:20 Urine, Clean Catch Urine Culture - Final Culture exhibits no growth. Physical Exam Narrative Seen and examined. Patient complaining of mid abdominal pain extending from the epigastrium to hypogastrium. She complained of back pain mainly on the right side yesterday she was complaining on the left renal angle pain. Patient has anxiety. CT shows small bowel ileus She has a history of scoliosis and had Henderson anne-marie in the back at young age. Physical exam General: Alert, Oriented x3, Cooperative HEENT: Atraumatic, PERRLA, EOMI, Normocephalic Oral: No Gingival or Mucosal Lesions/ Ulcerations Neck: Supple, No JVD, Negative Carotid Bruits Chest wall/Lungs: Air entry diminished in bilateral lung bases. No crepitation/rhonchi Cardiovascular: Regular rate, Regular Rhythm, Normal S1, Normal S2, No M/G/R Abdomen: Bowel Sounds Present, Soft, mild tenderness around epigastric umbilical and hypogastric region. Non-Distended : No significant renal tenderness. Dysuria present. Mild suprapubic tenderness. Extremities: No edema, Capillary Refill Less than 3 Seconds Skin: No rashes, No breakdown Musculoskeletal: No Tenderness to Palpation of Joints or Extremities Spine: Lower thoracic surgical scar with Henderson anne-marie. Scoliosis. Neurological: Cranial nerves II-XII grossly intact, DTR 2+/4. No acute focal neurological deficit. Psych/Mental Status: Normal Affect, Appropriate. Assessment & Plan Assessment/Plan (1) Urinary tract infection: PLAN: Plan The patient is a 28 y/o F who was admitted with back/lumbar discomfort with nausea vomiting poor oral intake and mid abdominal pain. She did not respond with Macrobid for UTI prescribed a week ago #1 acute nausea, emesis, poor oral intake tolerance, probably due to ileus: Patient admitted on [facility] floor. CT abdomen with IV contrast was done which shows air-fluid level in the small bowel. Normal colon. Normal visualized stomach. Normal liver. Normal gallbladder and extrahepatic biliary system. Normal spleen and pancreas. On IV ceftriaxone. Urine culture shows no growth. Previous urine culture on 03/08 shows mixed gram-positive and gram-negative organism 80,000?100,000 colonies. UTI is ruled out. Stool for C. difficile and enteric bacterial panel ordered. 03/16: Exact etiology of pain unclear. Usually ileus does not give abdominal pain. I feel like she is attention seeking and complaining more and seen by nursing staff. Continue IV fluid. On soft diet. Lipase normal. #2. Hypokalemia: Admission K+ 3.4, magnesium level requested, supplementation given, repeat level in AM. 03/16: Hypokalemia has resolved. Potassium 4.4. #3. Acute on chronic back pain,: Unclear reason. CT abdomen shows normal right and left kidney. Normal urinary bladder. Uterus normal. Moderate fluid in the pelvis. 03/16: Renal and bladder ultrasound was ordered. #4. Chronic normocytic anemia/Fe deficiency anemia: Admission hemoglobin 11.4, MCV 87.8, repeat hemoglobin 10.2/31.3. No significant drop in H&H. #5. Anxiety and depression: continue patient home fluoxetine and clarifying if patient is still on low-dose as needed twice daily alprazolam regimen as it appears the last fill for this was 03/30/2023 but uncertain. #6. Chronic bradycardia: Patient with stable bradycardia, reviewed from previous and at this point nonconcerning. #7. Obesity: Weight loss and lifestyle changes encouraged. #8. DVT prophylaxis: Low risk for type of admission, encourage ambulation. Laboratory Results 03/14/24 17:20: Urine Color Yellow, Urine Clarity Sl. Cloudy, Urine pH 6.0, Ur Specific [place] 1.020, Urine Protein 30 H, Urine Glucose (UA) Normal, Urine Ketones 150 A*, Urine Occult Blood 10 H, Urine Nitrite Positive H, Urine Bilirubin Negative, Urine Urobilinogen 1 H, Ur Leukocyte Esterase 25 H, Urine RBC 0-5 SEEN, Urine WBC 0-5 SEEN, Ur Squamous Epith Cells 10-25 SEEN, Amorphous Sediment 1+, Urine Bacteria 2+, Urine Mucus 3+, Urine Test Negative 03/15/24 05:15: WBC 4.7, RBC 3.53 L, Hgb 10.2 L, Hct 31.3 L, MCV 88.7, MCH 28.9, MCHC 32.6, RDW Std Deviation 41.5, RDW Coeff of Kell 12.7, Plt Count 192, MPV 11.5, Immature Gran % (Auto) 0.200, Neut % (Auto) 46.2 L, Lymph % (Auto) 42.6 H, [place] % (Auto) 8.9, Eos % (Auto) 1.7, Baso % (Auto) 0.4, Absolute Neuts (auto) 2.2, Absolute Lymphs (auto) 2.02, Nucleated RBC % 0, Sodium 140, Potassium 3.1 L , Chloride 108 H, Carbon Dioxide 25.0, Anion Gap 7, BUN 4 L, Creatinine 0.59, Estim Creat Clear Calc 153.85, Est GFR (MDRD) Af Amer 152, Est GFR (MDRD) Non-Af 126, BUN/Creatinine Ratio 6.7 L, Glucose 88, Calcium 8.5, Total Bilirubin 0.20, AST 21, ALT 28, Alkaline Phosphatase 58, Total Protein 6.0 L, Albumin 3.0 L, Globulin 3.0, Albumin/Globulin Ratio 1.0Laboratory Results 03/16/24 09:27: Sodium 141, Potassium 4.4, Chloride 114 H, Carbon Dioxide 24.0, Anion Gap 3 L, BUN 5 L, Creatinine 0.61, Estim Creat Clear Calc 148.72, Est GFR (MDRD) Af Amer 146, Est GFR (MDRD) Non-Af 121, BUN/Creatinine Ratio 8.2 L, Glucose 89, Calcium 8.6 Clinical Impression(s) from Imaging Studies Abdomen/Pelvis CT 03/14/24 16:06 IMPRESSION: Mild ileus. Moderate fluid in the pelvis. No radiodense urolithiasis noted but intravenous contrast limits sensitivity. Moderate scoliosis and Henderson rods. Charges/Coding Visit Charges Inpatient E&M: 17983 Subs Hosp L2
[2024-03-16 17:38] VITALS: BP 131/75; PULSE 51; RESP 18; TEMP 37; O2SAT 98
[2024-03-16 20:18] VITALS: BP 140/86; PULSE 54; RESP 16; TEMP 36.9; O2SAT 97
[2024-03-16] MEDS: oxyCODONE 5 MG Tablet PO (20:27)
[2024-03-16] MEDS: tiZANidine HCl 2 MG Tablet PO (20:27)
[2024-03-16] MEDS: Lidocaine 5% Patch 2 PATCH TOPICAL (20:28)
[2024-03-16] MEDS: Mag /Aluminum/Simeth WCH UDC 30 ML ORAL.SUSP PO (21:42)
[2024-03-16] MEDS: traZODone 50 MG Tablet PO (23:17)
[2024-03-17 04:46] VITALS: BP 112/71; PULSE 47; RESP 14; TEMP 36.6; O2SAT 98
[2024-03-17 06:00] VITALS: BMI 30.3
[2024-03-17 06:09] LABS: Absolute Lymphocyte Count 1.88 X10^3/uL (0.83-4.51); Absolute Neutrophil Count 2.6 X10^3/uL (2.0-7.7); Basophil# 0.01 X10^3/uL; Basophil% 0.2 % (0-1); Eosinophil# 0.05 X10^3/uL; Hematocrit 32.8 % (37-47); Hemoglobin 10.7 g/dL (12.0-15.0); Lymphocyte # 1.88 X10^3/ul (0.83-4.51); Lymphocyte % 38.2 % (19-41); Mean Corp Hgb Conc 32.6 g/dL (32-36); Mean Corpuscular Hgb 28.9 pg (27.0-32.0); Mean Corpuscular Volume 88.6 fL (81-99); Mean Platelet Vol. 11.5 fl (6.2-12.0); Monocyte% 8.1 % (0-10); NRBC Flagged by Analyzer 0 % (0-5); Neutrophil # 2.56 X10^3/uL (2.7-7.7); Neutrophil % 52.1 % (47-70); Platelet Count 187 K/mm3 (150-450); RBC Distribution Width CV 12.6 % (11.6-14.6); RBC Distribution Width SD 40.8 fl (35.1-43.9); White Blood Count 4.9 K/mm3 (4.4-11.0)
[2024-03-17 06:38] LABS: Anion Gap 3 (5-15); BUN 6 mg/dL (7-18); BUN/Creat Ratio 10.3 RATIO (10-20); Calcium,Total 8.6 mg/dL (8.5-10.1); Chloride 110 mmol/L (98-107); Creatinine, Serum 0.58 mg/dL (0.55-1.02); EST Glomerular Filtration Rate 128 mL/min (>60); Est Glom Filt Rate - Afr Amer 154 mL/min (>60); Estimated Creatinine Clearance 156.42 ml/min; Glucose 88 mg/dL (74-106); Potassium 3.6 mmol/L (3.5-5.1); Sodium Level 140 mmol/L (136-145)
[2024-03-17 08:07] VITALS: BP 118/80; PULSE 48; RESP 16; TEMP 36.7; O2SAT 97
[2024-03-17] MEDS: Pantoprazole Sodium 40 MG in 0.9% Normal Saline (100mL MB+) 100 ML 330 MG IV (08:17)
[2024-03-17] MEDS: Dicyclomine 10 MG Capsule 20 MG PO (08:17)
[2024-03-17] MEDS: Acetaminophen 325 MG Tablet 650 MG PO (08:17)
[2024-03-17] MEDS: oxyCODONE 5 MG Tablet PO (08:17)
--- NOTE | 2024-03-17 09:54 | DCINST_ITS ---
Discharge Instructions Follow Up Care Test Results: Test results from this visit will be discussed in further detail at your follow- up appointment, if applicable. Discharge Plan Admission Admit Date/Time: 03/15/24 15:51 Attending Provider: Carlos Enrique Hernandez Primary Care Provider: Dario Poe Consulting Providers: Dori Duran Discharge Orders/Prescriptions Prescriptions: Continued fluoxetine [Prozac] 20 mg Capsule 20 mg PO DAILY Rx Instructions: TAKE ONE CAPSULE (20MG) BY MOUTH ONCE DAILY WITH ONE 40MG CAPSULE FOR A TOTAL DAILY DOSE OF 60MG fluoxetine 40 mg capsule 40 mg PO DAILY Rx Instructions: TAKE ONE CAPSULE (20MG) BY MOUTH ONCE DAILY WITH ONE 40MG CAPSULE FOR A TOTAL DAILY DOSE OF 60MG Referrals / Follow Up: Dario Poe DO [Primary Care Provider] - Laura Cleaning MD [Med Staff - Active Staff] - Within 1 Month (Small bowel ileus) Disposition Disposition (needs filled in before D/C Order can be placed): Home, Self Care
--- NOTE | 2024-03-17 09:58 | DS.PCM_ITS ---
Providers Date of Admission: 03/15/24 Date of Discharge: 03/17/24 Primary Care Physician: Dr. Dario Poe DO Reason For Visit: UTI Diagnosis Discharge Diagnosis (1) Urinary tract infection: Status: Inactive Code(s): N39.0 - Urinary tract infection, site not specified Plan The patient is a 28 y/o F who was admitted with back/lumbar discomfort with nausea vomiting poor oral intake and mid abdominal pain. She did not respond with Macrobid for UTI prescribed a week ago #1 acute nausea, emesis, poor oral intake tolerance, probably due to ileus: Patient admitted on [facility] floor. CT abdomen with IV contrast was done which shows air-fluid level in the small bowel. Normal colon. Normal visualized stomach. Normal liver. Normal gallbladder and extrahepatic biliary system. Normal spleen and pancreas. On IV ceftriaxone. Urine culture shows no growth. Previous urine culture on 03/08 shows mixed gram-positive and gram-negative organism 80,000?100,000 colonies. UTI is ruled out. Stool for C. difficile and enteric bacterial panel ordered. 03/16: Exact etiology of pain unclear. Usually ileus does not give abdominal pain. I feel like she is attention seeking and complaining more and seen by nursing staff. Continue IV fluid. On soft diet. Lipase normal. 03/17: Patient nausea and vomiting started. She is passing flatus but not bowel movement. Pain is much controlled. Patient is being discharged home. Advised follow-up with surgery for small bowel ileus. #2. Hypokalemia: Admission K+ 3.4, magnesium level requested, supplementation given, repeat level in AM. 03/16: Hypokalemia has resolved. Potassium 4.4. #3. Acute on chronic back pain,: Unclear reason. CT abdomen shows normal right and left kidney. Normal urinary bladder. Uterus normal. Moderate fluid in the pelvis. 03/16: Renal and bladder ultrasound was ordered. 03/17: Renal bladder ultrasound shows nonobstructing right renal calculus. No hydronephrosis. Patient discharged home. #4. Chronic normocytic anemia/Fe deficiency anemia: Admission hemoglobin 11.4, MCV 87.8, repeat hemoglobin 10.2/31.3. No significant drop in H&H. #5. Anxiety and depression: continue patient home fluoxetine and clarifying if patient is still on low-dose as needed twice daily alprazolam regimen as it appears the last fill for this was 03/30/2023 but uncertain. #6. Chronic bradycardia: Patient with stable bradycardia, reviewed from previous and at this point nonconcerning. #7. Obesity: Weight loss and lifestyle changes encouraged. #8. DVT prophylaxis: Low risk for type of admission, encourage ambulation. Discharge medication reconciliation done. Discharge follow-up instructions completed. Discharge process discussed with the patient and all questions were answered to patient's satisfaction. Follow with PCP in 1 to 2 weeks Total time spent, exact 35 minutes on discharge meds reconciliation, examination, coordination of care with nurses and ancillary staff, review of imaging and blood test and discussion with the patient on follow-up instructions. Clinical Impression(s) from Imaging Studies Abdomen/Pelvis CT 03/14/24 16:06 IMPRESSION: Mild ileus. Moderate fluid in the pelvis. No radiodense urolithiasis noted but intravenous contrast limits sensitivity. Moderate scoliosis and Henderson rods. Renal Ultrasound 03/16/24 10:08 IMPRESSION: No hydronephrosis. Nonobstructing right renal calculus noted. Electronically Signed: Nolan Camargo MD at 8:48 EDT Reading Location ID and State: [facility] / [place] Tel , Service support , Microbiology Past 72 Hours 03/14/24 17:20 Urine, Clean Catch Urine Culture - Final Culture exhibits no growth. Laboratory Results 03/17/24 05:48: WBC 4.9, RBC 3.70 L, Hgb 10.7 L, Hct 32.8 L, MCV 88.6, MCH 28.9, MCHC 32.6, RDW Std Deviation 40.8, RDW Coeff of Kell 12.6, Plt Count 187, MPV 11.5, Immature Gran % (Auto) 0.400, Neut % (Auto) 52.1, Lymph % (Auto) 38.2, [place] % (Auto) 8.1, Eos % (Auto) 1.0, Baso % (Auto) 0.2, Absolute Neuts (auto) 2.6, Absolute Lymphs (auto) 1.88, Nucleated RBC % 0, Sodium 140, Potassium 3.6, Chloride 110 H, Carbon Dioxide 27.0, Anion Gap 3 L, BUN 6 L, Creatinine 0.58, Estim Creat Clear Calc 156.42, Est GFR (MDRD) Af Amer 154, Est GFR (MDRD) Non-Af 128, BUN/Creatinine Ratio 10.3, Glucose 88, Calcium 8.6 Medications at Discharge Home Medications fluoxetine 20 mg capsule (Prozac) 20 mg PO DAILY ANXIETY 12/08/22 fluoxetine 40 mg capsule 40 mg PO DAILY ANXIETY 03/10/23 Physical Exam Narrative Seen and examined. Patient symptoms of abdominal pain nausea and vomiting improved. CT shows small bowel ileus. Passing flatus. No bowel movement. She has a history of scoliosis and had Henderson anne-marie in the back at young age. Physical exam General: Alert, Oriented x3, Cooperative HEENT: Atraumatic, PERRLA, EOMI, Normocephalic Oral: No Gingival or Mucosal Lesions/ Ulcerations Neck: Supple, No JVD, Negative Carotid Bruits Chest wall/Lungs: Air entry diminished in bilateral lung bases. No crepitation/rhonchi Cardiovascular: Regular rate, Regular Rhythm, Normal S1, Normal S2, No M/G/R Abdomen: Bowel Sounds Present, Soft, no tenderness. Non-Distended : No significant renal tenderness. Dysuria present. Mild suprapubic tenderness. Extremities: No edema, Capillary Refill Less than 3 Seconds Skin: No rashes, No breakdown Musculoskeletal: No Tenderness to Palpation of Joints or Extremities Spine: Lower thoracic surgical scar with Henderson anne-marie. Scoliosis. Neurological: Cranial nerves II-XII grossly intact, DTR 2+/4. No acute focal neurological deficit. Psych/Mental Status: Normal Affect, Appropriate. Weight / BMI Weight Weight: 188 lb 14.978 oz Body Mass Index (BMI) 30.3 ABG / Lab / Microbiology Data 03/17/24 05:48 03/17/24 05:48 Laboratory: Laboratory Results - last 24 hr 03/16/24 09:27: Sodium 141, Potassium 4.4, Chloride 114 H, Carbon Dioxide 24.0, Anion Gap 3 L, BUN 5 L, Creatinine 0.61, Estim Creat Clear Calc 148.72, Est GFR (MDRD) Af Amer 146, Est GFR (MDRD) Non-Af 121, BUN/Creatinine Ratio 8.2 L, Glucose 89, Calcium 8.6 03/17/24 05:48: WBC 4.9, RBC 3.70 L, Hgb 10.7 L, Hct 32.8 L, MCV 88.6, MCH 28.9, MCHC 32.6, RDW Std Deviation 40.8, RDW Coeff of Kell 12.6, Plt Count 187, MPV 11.5, Immature Gran % (Auto) 0.400, Neut % (Auto) 52.1, Lymph % (Auto) 38.2, [place] % (Auto) 8.1, Eos % (Auto) 1.0, Baso % (Auto) 0.2, Absolute Neuts (auto) 2.6, Absolute Lymphs (auto) 1.88, Nucleated RBC % 0, Sodium 140, Potassium 3.6, Chloride 110 H, Carbon Dioxide 27.0, Anion Gap 3 L, BUN 6 L, Creatinine 0.58, Estim Creat Clear Calc 156.42, Est GFR (MDRD) Af Amer 154, Est GFR (MDRD) Non-Af 128, BUN/Creatinine Ratio 10.3, Glucose 88, Calcium 8.6 Microbiology: Microbiology 03/14/24 17:20 Urine, Clean Catch Urine Culture - Final Culture exhibits no growth. Radiography Diagnostic Testing: Radiology Impression Renal Ultrasound 03/16/24 10:08 IMPRESSION: No hydronephrosis. Nonobstructing right renal calculus noted. Electronically Signed: Nolan Camargo MD at 8:48 EDT Reading Location ID and State: [address] [place] [address] Tel , Service support , Meaningful Use Info Meaningful Use Meaningful Use Diagnoses (Choose all that apply): None applicable Ischemic Stroke Statin Dosing Therapy Reference: STATIN DOSE THERAPY REFERENCE: * Patients > 75 years receive moderate or high dose statin therapy. * Patients 75 years or YOUNGER should receive HIGH intensity statin dose unless contraindicated. You will be required to document reason for non-treatment if statin daily dose does not meet guidelines. HIGH DOSE STATIN THERAPY DAILY Atorvastatin > than or = to 40 mg Rosuvastatin > than or = to 20 mg Amlodipine + Atorvastatin > than or = to 2.5/40 mg Ezetimibe + Simvastatin 10/80 mg Simvastatin 80mg Discharge Plan Admission Admit Date/Time: 03/15/24 15:51 Attending Provider: Carlos Enrique Hernandez Primary Care Provider: Dario Poe Consulting Providers: Dori Duran Discharge Orders/Prescriptions Prescriptions: Continued fluoxetine [Prozac] 20 mg Capsule 20 mg PO DAILY Rx Instructions: TAKE ONE CAPSULE (20MG) BY MOUTH ONCE DAILY WITH ONE 40MG CAPSULE FOR A TOTAL DAILY DOSE OF 60MG fluoxetine 40 mg capsule 40 mg PO DAILY Rx Instructions: TAKE ONE CAPSULE (20MG) BY MOUTH ONCE DAILY WITH ONE 40MG CAPSULE FOR A TOTAL DAILY DOSE OF 60MG Referrals / Follow Up: Dario Poe DO [Primary Care Provider] - Laura Cleaning MD [Med Staff - Active Staff] - Within 1 Month (Small bowel ileus) Disposition Disposition (needs filled in before D/C Order can be placed): Home, Self Care Charges/Coding Visit Charges Inpatient E&M: 15976 Disch Hosp >30min
[2024-03-17] MEDS: Potassium Chloride Oral Tablet 20 MEQ 40 MEQ PO (10:29)
== END 2024-03-17 11:09 | disposition home or self-care (01) | DRG 251 ==
LOC: ED 17:02 → MS3 19:44
PROVIDERS: Admitting Provider Family Medicine; Emergency Provider Emergency Medicine; PCP Student in an Organized Health Care Education/Training Program; Visit Provider Internal Medicine
DX: R10.9 Unspecified abdominal pain (principal); K56.7 Ileus, unspecified; D50.9 Iron deficiency anemia, unspecified; F32.A Depression, unspecified; E66.9 Obesity, unspecified; R11.2 Nausea with vomiting, unspecified; M41.9 Scoliosis, unspecified; F41.9 Anxiety disorder, unspecified; E87.6 Hypokalemia; R00.1 Bradycardia, unspecified; Z79.891 Long term (current) use of opiate analgesic; G89.29 Other chronic pain; Z68.30 Body mass index [BMI] 30.0-30.9, adult; N20.0 Calculus of kidney; Z87.440 Personal history of urinary (tract) infections
CPT/HCPCS: 36415; 74177; 76770; 80048; 80053; 81001; 81025; 83690; 83735; 85025; 87086; 94668; 99284; J7030; Q9967; A4216; J2405

== ENCOUNTER 2024-04-18 16:23 | Emergency (ER) | payer MEDICAID, SELFPAY ==
[2024-04-18 16:24] VITALS: BP 119/79; PULSE 58; RESP 18; TEMP 36.3; O2SAT 100; BMI 29.4
--- NOTE | 2024-04-18 16:39 | CT_ITS ---
INDICATION: trauma EXAMINATION: CT BRAIN - CT Head or Brain W/O Contrast Injection TECHNIQUE: Multiple axial images were obtained of the head without intravenous contrast. A radiation dose optimization technique was used for this scan. IV Contrast dosage and agent: None. RADIATION DOSAGE (If Supplied By Facility): CTDIvol = ( 44.99 ) mGy, DLP = ( 796.11 ) mGycm COMPARISON: No relevant prior examinations for comparison FINDINGS: HEMISPHERES: 1. The cerebral parenchyma, ventricular system, subarachnoid spaces have normal configuration and density. There is a normal gyral pattern. There is normal briggs/white differentiation. No midline shift.. 2. The hemispheric white matter has normal appearance. 3. No intraparenchymal mass, hemorrhage, or acute territorial infarct. CEREBELLUM - BRAINSTEM: The cerebellum, brainstem, basilar and suprasellar cisterns have normal appearance. No Chiari malformation. PITUITARY: There is a partial empty sella. No sellar or suprasellar masses.. CSF SPACES: Appropriate for age. No hydrocephalus. Basal cisterns are patent. VESSELS: 1. No significant vascular calcifications in the cavernous carotid vessels. 2. No hyperdense vascular signs noted.. ORBITS AND PARANASAL SINUSES: 1. Normal appearance of the bony orbits. Normal appearance of the globes and retrobulbar soft tissues.. 2. Paranasal sinuses are clear. BONY ELEMENTS: Bony elements of the cranial vault, facial skeleton and skull base have normal appearance. SCALP AND SOFT TISSUES: Normal appearance of the soft tissues of the scalp and the visualized face OTHER: None ASPECTS Score for Acute Strokes: 10 CT/Brain/Head without Contrast IMPRESSION: 1. Stable exam. 2. No intracranial evidence of acute traumatic injury. 3. No intracranial mass, hemorrhage or acute territorial infarct. 4. No fractures noted. 5. No radiographically significant sinus disease.. 6. Incidental note of a partial empty sella without change. Electronically Signed: Blaine Anderson MD at 17:22 EDT ,
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
[2024-04-18] MEDS: Ondansetron ODT 4 MG Tablet 8 MG PO (16:45)
[2024-04-18] MEDS: Acetaminophen 500 MG Tablet 1000 MG PO (16:45)
== END 2024-04-18 17:56 | disposition home or self-care (01) ==
PROVIDERS: Emergency Provider Emergency Medicine; PCP Student in an Organized Health Care Education/Training Program; Visit Provider Emergency Medicine
DX: S46.811A Strain of other muscles, fascia and tendons at shoulder and upper arm level, right arm, initial encounter (principal); S00.81XA Abrasion of other part of head, initial encounter; V00.831A Fall from motorized mobility scooter, initial encounter; Y93.89 Activity, other specified
CPT/HCPCS: 70450; 99282

== ENCOUNTER 2024-05-02 12:53 | Emergency (ER) | payer MEDICAID, SELFPAY ==
[2024-05-02 12:54] VITALS: BP 125/79; PULSE 72; RESP 16; TEMP 36.1; O2SAT 100; BMI 28.7
--- NOTE | 2024-05-02 13:23 | ED.VIS.GI ---
HPI HPI - GI History of Present Illness Chief Complaint: Nausea/Vomiting/Diarrhea Informant: patient Nausea/Vomiting/Emesis GI Symptom: Positive for Nausea and Vomiting Onset: Today Severity: Mild Diarrhea/Melena/Hematochezia GI Symptom: Positive for Diarrhea Onset: Today Stool Quality: Positive for Loose Severity: Mild Associated Symptoms Associated Symptoms: Negative for Dysuria, Frequency, Hematuria or Urgency Narrative Narrative: 29-year-old female history of anemia. States that she has had nausea vomiting diarrhea for the last 2 to 3 days. No one else at home with similar symptoms. Says she feels lightheaded. Denies any dysuria. Said she had a similar episode in late March and states she was admitted to hospital at that time for UTI. She denies abdominal pain. Denies fever. Denies vaginal bleeding. She has had a prior tubal ligation, appendectomy and cholecystectomy. Prior similar symptoms: Yes Recent Illness/Hospitalization: Yes PFSH PFSH Medical History Flank pain Iron deficiency anemia Obesity Migraine Kidney stones Anxiety and depression Back problem Home Medications ?Medication ?Instructions ?Recorded ?Last Taken ?Type fluoxetine 20 mg capsule (Prozac) 20 mg PO DAILY ANXIETY 12/08/22 03/08/23 History fluoxetine 40 mg capsule 40 mg PO DAILY ANXIETY 03/10/23 03/08/23 History ondansetron 4 mg disintegrating 4 mg PO Q6H PRN nausea and 05/02/24 Unknown Rx tablet vomiting #7 tabs Allergy/AdvReac Type Severity Reaction Status Date / Time vancomycin Allergy Severe Anaphylaxis Verified 05/02/24 12:54 ceftriaxone (From Rocephin) Allergy Mild Swelling Verified 05/02/24 12:54 Family History Mother Diabetes Hypertension Father Hypertension Grandmother Diabetes Surgical History S/P ERCP S/P laparoscopic cholecystectomy History of back surgery History of tubal ligation History of appendectomy Social History household members: children and other details: fiance number of children: 3 Smoking Status: Never smoker alcohol intake: never substance use type: does not use do you feel safe at home: Yes additional social history: DOES NOT USE ASPIRIN DOES USE IBUPROFEN ROS ROS ED ROS Narrative Nausea, vomiting and diarrhea. Constitutional Constitutional ED: Denies chills or fever(s) ENT ENT ED: Denies ear pain Cardiovascular Cardiovascular: Denies chest pain Respiratory/Chest Respiratory/Chest: Denies cough Gastrointestinal Gastrointestinal: Reports diarrhea, nausea and vomiting; Denies abdominal pain, constipation or melena Genitourinary Genitourinary ED: Denies dysuria or hematuria Musculoskeletal Musculoskeletal: Denies arthralgias Integumentary Denies abscess Neurologic Neurologic: Denies headache(s) Psychiatric Psychiatric: Denies anxiety or depression Endocrine Endocrinology: Denies polydipsia or polyphagia Hematologic/Lymphatic Hematologic/Lymphatic: Denies easy bleeding or easy bruising Allergic/Immunologic Allergic/Immunologic ED: Denies mouth swelling, tongue swelling or urticaria EXAM Physical Exam Narrative Exam Narrative: 29-year-old female no acute distress sitting upright in bed. Anxious and tearful. No one else present in room. Vital signs are stable afebrile. H EENT exam unremarkable. Moist with members. Neck nontender no lymphadenopathy. Lungs clear to auscultation bilaterally. Heart regular rate and rhythm rate about 70 no murmur. Chest wall ribs nontender. Abdomen soft, nontender, nondistended, normal bowel sounds without peritoneal signs. No obstruction of hernia. Moving all 4 extremities. Nontender no edema. Neurologically she is awake and alert with no focal motor deficits. Const Vital Signs: 05/02/24 12:54 05/02/24 13:56 05/02/24 14:00 Temperature 97 F L 97 F L 97 F L Temperature Source Temporal Oral Oral Pulse Rate 72 75 75 Respiratory Rate 16 16 16 Blood Pressure 125/79 H 123/90 H 127/79 H Blood Pressure Mean 94 101 95 Pulse Ox 100 100 100 Oxygen Delivery Method Room Air Room Air Room Air 05/02/24 14:54 05/02/24 15:00 Temperature 97 F L Temperature Source Oral Pulse Rate 49 L Respiratory Rate 16 Blood Pressure 138/86 H 122/77 H Blood Pressure Mean 103 92 Pulse Ox 100 100 Oxygen Delivery Method Room Air Room Air Positive well nourished and well developed; Negative for cachectic, contractures or unkempt General Appearance ED: well developed and NAD; Negative for unkempt, cachectic, contractures or pallor Nutritional Appearance: Negative for cachectic HEENT Reports moist mucous membranes; Denies dry mucous membranes normocephalic and atraumatic; Negative for trauma or tenderness Mouth ED: No dry mucous membranes Mouth: No dry mucous membranes Eyes PERRL and EOMs intact bilaterally General Eye ED: Negative for pale conjunctiva or scleral icterus Neck no lymphadenopathy, supple and no JVD General: Negative for tenderness Carotids: Negative for other Lymph Lymphatic: Negative for other Resp normal respiratory effort and clear to auscultation bilaterally Effort and Inspection: Negative for respiratory distress Auscultation: Negative for rales, rhonchi, wheezes, diminished lung sounds or other Cardio regular rate, regular rhythm, S1 normal heart sound, S2 normal heart sound and no murmurs Rate: Negative for bradycardia or tachycardic Rhythm: Negative for abnormal rhythm GI non-tender, non-distended and no masses Inspection: Negative for abdominal distention Auscultation: normoactive bowel sounds Palpation: soft; Negative for tender, guarding or rebound tenderness present Back/Spine no CVA tenderness General Back: Negative for CVA tenderness Cervical Spine: Negative for cervical spine tenderness Thoracic Spine / Upper Back: Negative for thoracic spinal tenderness Lumbar Spine / Lower Back: Negative for lumbar spinal tenderness Coccyx: Negative for other Extremity full ROM General Extremety ED: Negative for edema, tenderness or other findings General Extremity: Negative for edema or other findings Neuro CN's II-XII intact bilaterally and moves all extremities Sensorium / Orientation: alert, oriented to person, oriented to place and oriented to time; Negative for orientation impaired or confused Motor Exam: strength 5/5 throughout; Negative for general weakness or strength abnormal Psych mental status grossly normal and thought process normal Appearance: Negative for unkempt Attitude: No agitated Mood & Affect: Negative for depressed, anxious or tearful Skin no wounds General Skin Exam: Negative for jaundice or pallor Lesions: no lesions Rashes: no rashes Trauma: Negative for abrasion Nails: Negative for discolored MDM MDM MDM Narrative Medical decision making narrative: 29-year-old female complaining nausea vomiting diarrhea. Clinically this is a viral gastroenteritis. She is having no abdominal pain does not need imaging. I will do screening labs and a UA. She is not having urinary symptoms. She be given Zofran and IV fluids. And reassess. Repeat exam patient is doing well at 3:26 PM. Abdomen benign. She had requested something for pain initially she was not having any pain she was given IV Toradol. Clinically I think this is a viral gastroenteritis. She will be discharged home. Fluids and rest. Zofran as needed. History & Record Review Discussion w/independent historian: Patient Additional record(s) reviewed:: Prior inpatient record, Prior outpatient record, Prior ED visit and Prior labs Lab Data Attestation: I reviewed the patient's lab results. Lab results narrative: CBC normal. White count of 7. H&H 13 and 40. Platelets 215. Electrolytes unremarkable gap 4. Normal BUN of 8 and creatinine 0.7. Glucose 96. Urinalysis shows no nitrites. No white or red cells. No bacteria. Labs: Laboratory Results - last 24 hr 05/02/24 05/02/24 13:30 13:50 WBC 7.2 RBC 4.70 Hgb 13.2 Hct 40.7 MCV 86.6 MCH 28.1 MCHC 32.4 RDW Std Deviation 38.9 RDW Coeff of Kell 12.2 Plt Count 215 MPV 11.2 Immature Gran % (Auto) 0.300 Neut % (Auto) 73.7 H Lymph % (Auto) 18.6 L [place] % (Auto) 6.7 Eos % (Auto) 0.4 Baso % (Auto) 0.3 Absolute Neuts (auto) 5.3 Absolute Lymphs (auto) 1.33 Nucleated RBC % 0 Sodium 137 Potassium 3.5 Chloride 107 Carbon Dioxide 26.0 Anion Gap 4 L BUN 8 Creatinine 0.71 Estim Creat Clear Calc 123.02 Est GFR (MDRD) Af Amer 124 Est GFR (MDRD) Non-Af 103 BUN/Creatinine Ratio 11.3 Glucose 96 Calcium 9.3 Urine Color Yellow Urine Clarity Clear Urine pH 6.0 Ur Specific [place] 1.015 Urine Protein 15 H Urine Glucose (UA) Normal Urine Ketones 5 H Urine Occult Blood 10 H Urine Nitrite Negative Urine Bilirubin Negative Urine Urobilinogen Normal Ur Leukocyte Esterase 25 H Urine RBC 0 SEEN Urine WBC 0-5 SEEN Ur Squamous Epith Cells 0-5 SEEN Ur Renal Epithelial Cell 0-5 SEEN Urine Bacteria 0 SEEN Urine Mucus 3+ Discharge Plan Triage Chief Complaint: Nausea/Vomiting/Diarrhea ED Provider: Gildardo Valdivia Dx/Rx/DC Orders Clinical Impression: Viral gastroenteritis Instructions: ED Gastroenteritis, Viral (Adult) Prescriptions: New ondansetron 4 mg tablet,disintegrating 4 mg PO Q6H PRN (Reason: nausea and vomiting) Qty: 7 0RF No Action fluoxetine [Prozac] 20 mg Capsule 20 mg PO DAILY Rx Instructions: TAKE ONE CAPSULE (20MG) BY MOUTH ONCE DAILY WITH ONE 40MG CAPSULE FOR A TOTAL DAILY DOSE OF 60MG fluoxetine 40 mg capsule 40 mg PO DAILY Rx Instructions: TAKE ONE CAPSULE (20MG) BY MOUTH ONCE DAILY WITH ONE 40MG CAPSULE FOR A TOTAL DAILY DOSE OF 60MG Primary Care Provider: Dario Poe Referrals: Dario Poe, DO [Primary Care Provider] - 3-5 Days if not improving Activity Restrictions/Additional Instructions: Plenty of fluids and rest. Increase diet slowly as tolerated. Zofran as needed for nausea. Follow-up with your doctor as needed. Motrin and/or Tylenol for any discomfort. Return if feeling a lot worse. Your labs today were normal. Print Language: Bulgarian Disposition Disposition: Home, Self Care
[2024-05-02] MEDS: 0.9% Normal Saline (1000mL) 1,000 ML 999 ML IV (13:31)
[2024-05-02] MEDS: Ondansetron 4 MG/2 ML Vial IV (13:32)
[2024-05-02 13:42] LABS: Absolute Lymphocyte Count 1.33 X10^3/uL (0.83-4.51); Absolute Neutrophil Count 5.3 X10^3/uL (2.0-7.7); Basophil# 0.02 X10^3/uL; Basophil% 0.3 % (0-1); Eosinophil# 0.03 X10^3/uL; Eosinophils% 0.4 % (0-5); Hematocrit 40.7 % (37-47); Hemoglobin 13.2 g/dL (12.0-15.0); Lymphocyte # 1.33 X10^3/ul (0.83-4.51); Lymphocyte % 18.6 % (19-41); Mean Corp Hgb Conc 32.4 g/dL (32-36); Mean Corpuscular Hgb 28.1 pg (27.0-32.0); Mean Corpuscular Volume 86.6 fL (81-99); Mean Platelet Vol. 11.2 fl (6.2-12.0); Monocyte# 0.48 X10^3/uL; Monocyte% 6.7 % (0-10); NRBC Flagged by Analyzer 0 % (0-5); Neutrophil # 5.28 X10^3/uL (2.7-7.7); Neutrophil % 73.7 % (47-70); Platelet Count 215 K/mm3 (150-450); RBC Distribution Width CV 12.2 % (11.6-14.6); RBC Distribution Width SD 38.9 fl (35.1-43.9); White Blood Count 7.2 K/mm3 (4.4-11.0)
[2024-05-02 13:53] LABS: Anion Gap 4 (5-15); BUN 8 mg/dL (7-18); BUN/Creat Ratio 11.3 RATIO (10-20); Calcium,Total 9.3 mg/dL (8.5-10.1); Chloride 107 mmol/L (98-107); Creatinine, Serum 0.71 mg/dL (0.55-1.02); EST Glomerular Filtration Rate 103 mL/min (>60); Est Glom Filt Rate - Afr Amer 124 mL/min (>60); Estimated Creatinine Clearance 123.02 ml/min; Glucose 96 mg/dL (74-106); Potassium 3.5 mmol/L (3.5-5.1); Sodium Level 137 mmol/L (136-145)
[2024-05-02 13:55] LABS: Bacteria 0 SEEN /hpf (None Seen); Red Blood Cells-Urine 0 SEEN /hpf (0-5)
[2024-05-02 13:56] VITALS: BP 123/90; PULSE 75; RESP 16; TEMP 36.1; O2SAT 100
[2024-05-02 13:56] LABS: Color, Urine Yellow (Yellow); Glucose, Dipstick Normal (Normal); Ketone-Dipstick 5 mg/dl (Negative); Leukocyte Esterase-Dipstick 25 /ul (Negative); Nitrite-Dipstick Negative (Negative); Occult Blood-Urine 10 /ul (Negative); Protein-Dipstick 15 mg/dl (Negative); Specific Gravity, Urine 1.015 (1.002-1.030); Urine Bilirubin Dipstick Negative (Negative); Urine Clarity Clear (Clear); Urine Urobilinogen Normal (Normal)
[2024-05-02] MEDS: Ketorolac 30 MG/ML Syringe IV (13:58)
[2024-05-02 14:00] VITALS: BP 127/79; PULSE 75; RESP 16; TEMP 36.1; O2SAT 100
[2024-05-02 14:14] LABS: Squamous Epithelial Cells - UA 0-5 SEEN /hpf (5-10)
[2024-05-02 14:15] LABS: Mucous, Urine 3+ /hpf (<or=2+); Renal Epithelial Cells 0-5 SEEN /hpf (0-5); White Blood Cells 0-5 SEEN /hpf (0-5)
[2024-05-02 14:54] VITALS: BP 138/86; O2SAT 100
[2024-05-02 15:00] VITALS: BP 122/77; PULSE 49; RESP 16; TEMP 36.1; O2SAT 100
[2024-05-02] MEDS: DiphenhydrAMINE 50 MG/ML Syringe 25 MG IV (15:41)
[2024-05-02 16:04] VITALS: BP 109/72; PULSE 81; RESP 16; TEMP 36.6; O2SAT 100
== END 2024-05-02 16:00 | disposition home or self-care (01) ==
PROVIDERS: Emergency Provider Emergency Medicine; PCP Student in an Organized Health Care Education/Training Program; Visit Provider Emergency Medicine
DX: A08.4 Viral intestinal infection, unspecified (principal)
CPT/HCPCS: 80048; 81001; 85025; 96361; 96374; 96375; 99283; J7030; J2405

== ENCOUNTER 2024-11-07 08:25 | Emergency (ER) | payer MEDICAID, SELFPAY ==
[2024-11-07 08:27] VITALS: BP 112/80; PULSE 80; RESP 16; TEMP 35.7; O2SAT 98; BMI 32.2
--- NOTE | 2024-11-07 08:47 | EDS_ITS ---
HPI HPI - GI History of Present Illness Chief Complaint: Constipation Informant: patient Narrative Narrative: Patient presenting with abdominal pain, constipation, right low back pain. She states the back pain feels like it is where her kidney is, she has had kidney stones in the past, unsure if this feels like the same pain, but she is calling a kidney pain because of the location mainly. Dr. Balbuena she states she has been constipated and having intermittent lower abdominal discomfort for the past 2.5 weeks. She states when she has a bowel movement it is only a very small hard piece of stool and rarely. She does not usually have issues with constipation, she cannot remember any obvious trigger foods that she ate to cause this. In the past week she has been having difficulty getting urine out when she sits down. She states if she holds her lower abdomen and leans forward then she can urinate but last night and this morning it did not work as well and she feels like she needs to urinate but is unable. In the past week since this has been the case, she has been having pain in her right low back, and having nausea and vomiting frequently when she tries to eat. This morning at work the pain in her low back became more severe and she felt like she was going to pass out so she came to the ER. She denies any chest pain, dyspnea, headaches, focal neurologic symptoms, fevers or chills that she knows of. [facility] Medical History Flank pain Iron deficiency anemia Obesity Migraine Kidney stones Anxiety and depression Back problem Home Medications ?Medication ?Instructions ?Recorded ?Last Taken ?Type fluoxetine 20 mg capsule (Prozac) 20 mg PO DAILY ANXIE TY 12/08/22 03/08/23 History fluoxetine 40 mg capsule 40 mg PO DAILY ANXIETY 03/1003/08/23 History ondansetron 4 mg disintegrating 4 mg PO Q6H PRN nausea and 05/02/24 Unknown Rx tablet vomiting #7 tabs dicyclomine 20 mg tablet 20 mg PO Q6H PRN PRN abdomin al 11/07/24 Unknown Rx discomfort #20 tabs Allergy/AdvReac Type Severity Reaction Status Date / Time vancomycin Allergy Severe Anaphylaxis Verified 11/07/24 08:26 ceftriaxone (From Rocephin) Allergy Mild Swelling Verified 11/07/24 08:26 Family History Mother Diabetes Hypertension Father Hypertension Grandmother Diabetes Surgical History S/P ERCP S/P laparoscopic cholecystectomy History of back surgery History of tubal ligation History of appendectomy Social History household members: children and other details: fiance number of children: 3 Smoking Status: Never smoker alcohol intake: never substance use type: does not use do you feel safe at home: Yes additional social history: DOES NOT USE ASPIRIN DOES USE IBUPROFEN ROS ROS ED Constitutional Constitutional ED: Denies chills or fever(s) Eyes Eyes: Denies change in vision or diplopia ENT ENT ED: Denies rhinorrhea or sore throat Cardiovascular Cardiovascular: Denies chest pain or palpitations Respiratory/Chest Respiratory/Chest: Denies cough or dyspnea Gastrointestinal Gastrointestinal: Reports abdominal pain, constipation, nausea and vomiting; Denies diarrhea Genitourinary Genitourinary ED: Reports as per HPI and difficulty urinating; Denies dysuria or hematuria Musculoskeletal Musculoskeletal: Reports back pain; Denies neck pain Integumentary Denies abscess or rash Neurologic Neurologic: Denies headache(s), paresthesias or weakness Psychiatric Psychiatric: Denies suicidal thoughts EXAM Physical Exam Const Vital Signs: 11/07/24 08:27 11/07/24 11:03 11/07/24 13:00 Temperature 96.3 F L Temperature Source Oral Pulse Rate 80 78 56 L Respiratory Rate 16 16 16 Blood Pressure 112/80 124/62 H 117/78 Blood Pressure Mean 90 82 91 Pulse Ox 98 98 Oxygen Delivery Method Room Air Positive well nourished and well developed General Appearance ED: well developed and NAD HEENT Reports moist mucous membranes normocephalic and atraumatic Eyes PERRL and EOMs intact bilaterally Neck full ROM and supple Resp normal respiratory effort and clear to auscultation bilaterally Cardio regular rate, regular rhythm and no murmurs GI non-distended GI Narrative: Tenderness epigastrium and suprapubic areas, no guarding or rebound. Clinically Auscultation: normoactive bowel sounds Palpation: soft Back/Spine General Back: CVA tenderness right and other FROM Extremity normal to inspection General Extremety ED: Negative for edema, pulses abnormal or tenderness General Extremity: Negative for edema or pulses abnormal Neuro oriented x3, CN's II-XII intact bilaterally and no sensory deficits noted Sensorium / Orientation: awake and alert Motor Exam: strength 5/5 throughout Skin no rashes or lesions noted and no wounds MDM MDM MDM Narrative Medical decision making narrative: Initially contemplating constipation causing her back pain and abdominal discomfort, we attempted a soapsuds enema, she produced a small bowel movement from this, but had no resolution of her pain in her right low back. She appeared very comfortable, initially started with Toradol although this did not help according to her, so she was then given morphine and Zofran. After the enema she was still not able to urinate and was bladder scanned for over 500 cc of urine, so nursing placed a catheter which drained her bladder, relieving some of that discomfort but not the pain in her right low back/flank. Urinalysis is negative for infection, is negative ruling out ectopic. Given that her symptoms not resolved I sent her for a CT of the abdomen/pelvis, I reviewed the images and the report, it is essentially normal. There is no sign of obstructive uropathy, poor renal perfusion, it was a urine negative no stranding this is unlikely to be pyelonephritis. I reevaluated her she is having no pelvic pain therefore I do not think we need to evaluate her ovaries emergently. I still think this could be colonic/GI-related pain that is giving her pack rosales n, could also be musculoskeletal. I think for now I would continue treating constipation as an outpatient, her labs are normal I see no reason to admit her emergently to the hospital for further imaging or studies at this time. I am giving her magnesium citrate to use at home, advised to drink plenty of fluids, as well as dicyclomine, follow-up if the symptoms do not resolve. Additionally we discussed the Jj catheter. She prefers to leave it in for now because she did not like the symptoms of urinary retention. I am going to have nursing give her a syringe and instructions to remove it if she has a good bowel movement and wants to try removing it at home I think that would be reasonable. She is comfortable with that plan. Lab Data Attestation: I reviewed the patient's lab results. Labs: Laboratory Results - last 24 hr 11/07/24 11/07/24 08:58 08:59 WBC 7.1 RBC 4.23 Hgb 12.4 Hct 36.8 L MCV 87.0 MCH 29.3 MCHC 33.7 RDW Std Deviation 39.2 RDW Coeff of Kell 12.3 Plt Count 214 MPV 10.3 Immature Gran % (Auto) 0.600 Neut % (Auto) 72.9 H Lymph % (Auto) 17.9 L [place] % (Auto) 7.6 Eos % (Auto) 0.7 Baso % (Auto) 0.3 Absolute Neuts (auto) 5.2 Absolute Lymphs (auto) 1.27 Nucleated RBC % 0 Sodium 137 Potassium 3.9 Chloride 103 Carbon Dioxide 23.2 Anion Gap 11 BUN 10 Creatinine 0.72 Estim Creat Clear Calc 128.36 Est GFR (MDRD) Non-Af 114 BUN/Creatinine Ratio 13.3 Glucose 81 Calcium 9.3 Total Bilirubin 0.33 AST 26 ALT 18 Alkaline Phosphatase 70 Total Protein 7.6 Albumin 4.4 Globulin 3.2 Albumin/Globulin Ratio 1.4 Urine Color Yellow Urine Clarity Clear Urine pH 7.0 Ur Specific [place] 1.005 Urine Protein 15 H Urine Glucose (UA) Normal Urine Ketones Negative Urine Occult Blood Negative Urine Nitrite Negative Urine Bilirubin Negative Urine Urobilinogen Normal Ur Leukocyte Esterase Negative Urine RBC 0-5 SEEN Urine WBC 0-5 SEEN Ur Squamous Epith Cells 0-5 SEEN Urine Bacteria 0 SEEN Urine Mucus 0 SEEN Urine Test Negative Radiography Diagnostic Testing: Clinical Impression(s) from Imaging Studies Abdomen/Pelvis CT 11/07/24 10:39 IMPRESSION: Status post cholecystectomy. No acute abnormality is seen. Reading Location: [facility] Discharge Plan Triage Chief Complaint: Constipation Other Complaint: Fever Flank Pain ED Provider: Jimmy Lan Dx/Rx/DC Orders Clinical Impression: Acute right flank pain, Lower abdominal pain, Acute urinary retention, Constipation Instructions: ED Constipation (Adult), ED Flank Pain, Uncertain Cause, ED Urinary Retention, Female Prescriptions: New dicyclomine 20 mg tablet 20 mg PO Q6H PRN PRN (Reason: abdominal discomfort) Qty: 20 0RF No Action fluoxetine [Prozac] 20 mg Capsule 20 mg PO DAILY Rx Instructions: TAKE ONE CAPSULE (20MG) BY MOUTH ONCE DAILY WITH ONE 40MG CAPSULE FOR A TOTAL DAILY DOSE OF 60MG fluoxetine 40 mg capsule 40 mg PO DAILY Rx Instructions: TAKE ONE CAPSULE (20MG) BY MOUTH ONCE DAILY WITH ONE 40MG CAPSULE FOR A TOTAL DAILY DOSE OF 60MG ondansetron 4 mg tablet,disintegrating 4 mg PO Q6H PRN (Reason: nausea and vomiting) Qty: 7 0RF Primary Care Provider: Dario Poe Referrals: Dario Poe, DO [Primary Care Provider] - 3-5 Days if not improving Activity Restrictions/Additional Instructions: During the first half of the magnesium citrate and drink plenty of fluids. If you do not have a good bowel movement within 24 hours repeat with the other half of the bottle. If you have a good bowel movement and want to remove the catheter, you may do so according to nursing instructions. If you still are not able to urinate and think you require another catheter, you may return to the ER at any time. You may also alternatively leave the catheter in for up to 1 or 2 weeks if you are following up with your doctor and prefer to leave it in. Print Language: [place]an Disposition Disposition: Home, Self Care
[2024-11-07] MEDS: Ondansetron 4 MG/2 ML Vial IV (09:07)
[2024-11-07 09:15] LABS: Absolute Lymphocyte Count 1.27 X10^3/uL (0.83-4.51); Absolute Neutrophil Count 5.2 X10^3/uL (2.0-7.7); Basophil# 0.02 X10^3/uL; Basophil% 0.3 % (0-1); Eosinophil# 0.05 X10^3/uL; Eosinophils% 0.7 % (0-5); Hematocrit 36.8 % (37-47); Hemoglobin 12.4 g/dL (12.0-15.0); Lymphocyte # 1.27 X10^3/ul (0.83-4.51); Lymphocyte % 17.9 % (19-41); Mean Corp Hgb Conc 33.7 g/dL (32-36); Mean Corpuscular Hgb 29.3 pg (27.0-32.0); Mean Platelet Vol. 10.3 fl (6.2-12.0); Monocyte# 0.54 X10^3/uL; Monocyte% 7.6 % (0-10); NRBC Flagged by Analyzer 0 % (0-5); Neutrophil # 5.19 X10^3/uL (2.7-7.7); Neutrophil % 72.9 % (47-70); Platelet Count 214 K/mm3 (150-450); RBC Distribution Width CV 12.3 % (11.6-14.6); RBC Distribution Width SD 39.2 fl (35.1-43.9); Red Blood Count 4.23 M/mm3 (4.2-5.4); White Blood Count 7.1 K/mm3 (4.4-11.0)
[2024-11-07 09:46] LABS: ALB/GLOB Ratio 1.4 RATIO (0.9-2.4); AST(SGOT) 26 U/L (<=31); Alanine Aminotransfer ALT/SGPT 18 U/L (<=34); Albumin, Serum 4.4 g/dL (3.5-5.0); Alkaline Phosphatase 70 U/L (35-104); Anion Gap 11 (5-15); BUN 10 mg/dL (4-19); BUN/Creat Ratio 13.3 RATIO (10-20); Calcium,Total 9.3 mg/dL (7.6-11.0); Carbon Dioxide 23.2 mmol/L (21.0-32.0); Chloride 103 mmol/L (98-108); Creatinine, Serum 0.72 mg/dL (0.70-1.20); EST Glomerular Filtration Rate 114 (>60); Estimated Creatinine Clearance 128.36 ml/min (50-250); Globulin 3.2 g/dL (2.2-4.2); Glucose 81 mg/dL (70-99); Potassium 3.9 mmol/L (3.3-5.1); Protein, Total 7.6 g/dL (5.9-8.4); Sodium Level 137 mmol/L (133-145); Total Bilirubin 0.33 mg/dL (0.00-1.30)
[2024-11-07 10:18] LABS: Bacteria 0 SEEN /hpf (None Seen); Mucous, Urine 0 SEEN /hpf (<or=2+)
[2024-11-07 10:26] LABS: Internal QC Validated? YES +Cl - CLEAR BKGD; Pregnancy, Urine Negative Negative; Record Kit Lot#,Urine Preg 899023
[2024-11-07 10:39] LABS: Color, Urine Yellow (Yellow); Glucose, Dipstick Normal (Normal); Ketone-Dipstick Negative (Negative); Leukocyte Esterase-Dipstick Negative /ul (Negative); Nitrite-Dipstick Negative (Negative); Occult Blood-Urine Negative /ul (Negative); Protein-Dipstick 15 mg/dl (Negative); Specific Gravity, Urine 1.005 (1.002-1.030); Urine Bilirubin Dipstick Negative (Negative); Urine Clarity Clear (Clear); Urine Urobilinogen Normal (Normal)
--- NOTE | 2024-11-07 10:39 | CT_ITS ---
PROCEDURE: ABDOMEN/PELVIS W IV CONT ONLY 11/07/2024 REASON FOR EXAM: R FLANK PAIN, LOWER ABD PAIN, N/V TECHNIQUE: Abdomen and pelvis CT with intravenous contrast. Coronal and Sagittal reconstruction series were provided. PATIENT PREPARATION: Per protocol ORAL CONTRAST TYPE: None. CONTRAST: Isovue 370 VOLUME: 90mL One or more dose reduction techniques were used (e.g., Automated exposure control, adjustment of the mA and/or kV according to patient size, use of iterative reconstruction technique. RADIATION DOSE SUMMARY: CTDlvol: 18 mGy DLP: 2055.64 mGycm COMPARISON: Comparison is made with prior study dated March 14, 2024. FINDINGS: Lung bases: Unremarkable Liver: Normal size. No mass. Gallbladder: Surgically absent. Spleen: Normal size. Pancreas: Normal size without evidence of mass surrounding inflammation or ductal dilation. Adrenals: Unremarkable Kidneys: Unremarkable Bladder: Unremarkable Reproductive Organs: Normal uterine size and contour. Ovaries are unremarkable. Bilateral tubal ligation clips are visualized. Bowel: No bowel obstruction. Appendix: Findings suggestive of appendectomy. Lymph nodes: Unremarkable. Vasculature: The abdominal aorta and IVC are normal. Peritoneum / Retroperitoneum: Bones: Levoscoliosis with multilevel intrapedicular screw and anne-marie fixation. This is unchanged. CT/Abdomen/Pelvis W IV Cont ONLY IMPRESSION: Status post cholecystectomy. No acute abnormality is seen. Reading Location: [id number]
[2024-11-07] MEDS: Ketorolac 30 MG/ML Syringe IV (11:00)
[2024-11-07 11:03] VITALS: BP 124/62; PULSE 78; RESP 16; O2SAT 98
[2024-11-07 11:11] LABS: Red Blood Cells-Urine 0-5 SEEN /hpf (0-5); Squamous Epithelial Cells - UA 0-5 SEEN /hpf (5-10); White Blood Cells 0-5 SEEN /hpf (0-5)
[2024-11-07] MEDS: Morphine 4 MG/ML Syringe IV (11:56)
[2024-11-07 13:00] VITALS: BP 117/78; PULSE 56; RESP 16
[2024-11-07] MEDS: Dicyclomine 10 MG Capsule 20 MG PO (13:18)
[2024-11-07] MEDS: Magnesium Citrate 300 ML 150 ML PO (13:18)
[2024-11-07 13:39] VITALS: BP 106/70; PULSE 75; RESP 16; TEMP 36.6; O2SAT 97
== END 2024-11-07 13:40 | disposition home or self-care (01) ==
PROVIDERS: Emergency Provider Emergency Medicine; PCP Student in an Organized Health Care Education/Training Program; Visit Provider Emergency Medicine
DX: K59.00 Constipation, unspecified (principal); R33.9 Retention of urine, unspecified; M54.50 Low back pain, unspecified; Z87.442 Personal history of urinary calculi
CPT/HCPCS: 51702; 74177; 80053; 81001; 81025; 85025; 96374; 96375; 99285; Q9967; A4216; J2405